=== PATIENT | female | born 1950 | race Caucasian/White ===

== ENCOUNTER → 2017-11-03 08:48 | Outpatient (CLI) | payer MEDICARE, SELFPAY ==
--- NOTE | 2017-11-03 09:00 | MM_ITS ---
MM Dig screening mamm BI w/CAD ORDERING PHYSICIAN : Jeffry Millan MD PATIENT AGE: 67 years GENDER: Female COMPARISON: January 2011 digital mammogram and July 1997 of film screen study INDICATION: ITS.REASON: SCREENING no hormones. No new complaints. Noncontributory family history TECHNIQUE: Standard CC and MLO images were obtained. R2 CAD reviewed. FINDINGS: Heterogeneous difficult to evaluate breast pattern with mild asymmetry of the breast. Difficult to review The dense patchy breast towards the deep right and left breast again encountered. There is been regression of overall previously more pronounced overall breast tissue density since previous 2010 examreflecting typical progressive aging changes with regression of breast tissue with aging in this now 67-year-old patient When considering the previous pattern I believe the overall asymmetric patchy pattern seen today is stable with no significant new findings. Bilateral follow-up one year be adequate Benign calcifications bilaterally. . IMPRESSION: Asymmetric patchy inhomogeneous breast pattern However no new areas of significant concern. Bilateral follow-up in one year BI-RADS Category: 2 Benign Finding(s) RECOMMENDED FOLLOW-UP: 1YR 1 YEAR FOLLOW-UP (A letter has been sent to the patient regarding results of the study.)
--- NOTE | 2017-11-03 09:30 | US_ITS ---
US breast RT complete, US breast LT complete INDICATION: Mastalgia, breast pain ORDERING PHYSICIAN: Jeffry Millan MD PATIENT AGE: 67 years COMPARISON: None TECHNIQUE: Standard bilateral breast ultrasound performed with axial FINDINGS: Right breast: No suspicious solid lesions evident. There is a 5 mm x 3 mm cyst in the retroareolar region. Small nodes are present in the axilla Left breast: Small 4 mm cyst in the retroareolar region. No suspicious nodules. Small nodes in the axilla. IMPRESSION: Small bilateral retroareolar cyst otherwise negative bilateral breast ultrasound Negative ultrasound does not exclude the possibility of malignancy. If there are palpable abnormalities in relation be managed on a clinical basis. BI-RADS Category: 2 Benign Finding(s) RECOMMENDED FOLLOW-UP: 1YR - 1 YEAR FOLLOW-UP (A letter has been sent to the patient regarding results of the study.)
--- NOTE | 2017-11-03 10:00 | XR_ITS ---
XR DEXA axial skeleton HISTORY: ORDERING PHYSICIAN: Jeffry Millan MD PATIENT AGE: 67 years COMPARISON: 08/07/2009 FINDINGS: The BMD measured at the AP Spine L1-L4 is 0.778 g/cm squared with a T score of -3.4 . This is considered Osteoporotic according to the World Health Organization criteria. Fracture risk is High. Treatment is advised. The lumbar spine density has decreased by nearly 4%. The mean hip density has a T score of -2.5 and has decreased 8% IMPRESSION: Osteoporosis with high fracture risk. Treatment recommended. Suggest follow-up exam October 2018
== END ==
PROVIDERS: Family Provider Family Medicine; PCP Family Medicine; Visit Provider Family Medicine
DX: Z12.31 Encounter for screening mammogram for malignant neoplasm of breast (principal); Z13.820 Encounter for screening for osteoporosis; Z78.0 Asymptomatic menopausal state; N64.4 Mastodynia
CPT/HCPCS: 76641; 77067; 77080

== ENCOUNTER → 2018-04-11 11:05 | Outpatient (CLI) | payer MEDICARE, SELFPAY ==
--- NOTE | 2018-04-11 11:09 | XR_ITS ---
XR chest 2V HISTORY: Chest pain, chronic chest pain, smoker ITS.REASON: chest pain ORDERING PHYSICIAN: Jose Ramirez MD PATIENT AGE: 67 years COMPARISON: 10/22/2017 FINDINGS: The cardiomediastinal silhouette and pulmonary vascularity are within normal limits. COPD. Biapical pleural thickening noted. Calcified granuloma is present in the left upper lobe. No lobar consolidation or collapse. No evidence of pneumothorax.. No acute bony abnormalities. IMPRESSION: COPD with chronic changes, no change with no acute finding
[2018-04-11 14:42] LABS: Basophils # 0.1 K/mm3 (0-0.2); Basophils % 0.8 % (0.1-2.0); Eosinophils # 0.1 K/mm3 (0.0-0.4); Eosinophils % 0.5 % (0.1-12.0); Hemoglobin 14.1 g/dL (12.2-16.2); Lymphocytes # 1.7 K/mm3 (0.7-4.5); Lymphocytes % 15.5 % (10-50); Mean Corpuscular HGB Conc 33.5 g/dL (31.8-35.4); Mean Corpuscular Hemoglobin 28.9 pg (27.0-31.2); Mean Corpuscular Volume 86.1 fl (81-99); Mean Platelet Volume 9.1 fl (7.4-10.4); Monocytes # 0.5 K/mm3 (0.1-1.0); Neutrophils # 8.5 K/mm3 (1.8-7.8); Neutrophils % 78.3 % (37.0-80.0); Platelet Count 258 K/mm3 (142-424); Red Blood Count 4.88 M/mm3 (4.20-5.40); Red Cell Distribution Width 14.1 % (11.5-17.5); White Blood Count 10.8 K/mm3 (4.8-10.8)
[2018-04-11 15:10] LABS: Alanine Aminotransferase 19 U/L (12-78); Albumin Level 3.8 gm/dL (3.4-5.0); Albumin/Globulin Ratio 1.2 (1.1-1.8); Alkaline Phosphatase 82 U/L (46-116); Anion Gap 16.5 mEq/L (5-15); Aspartate Amino Transferase 13 U/L (15-37); Bilirubin,Total 0.3 mg/dL (0.2-1.0); Blood Urea Nitrogen 11 mg/dL (7-18); Calcium 10.3 mg/dL (8.5-10.1); Carbon Dioxide 25 mmol/L (21.0-32.0); Chloride 103 mmol/L (98-107); Chol/HDL Ratio 3.4 (1-3.5); Cholesterol 211 mg/dL (140-200); Creatinine,Serum 0.86 mg/dL (0.55-1.02); Estimated Glomerular Filt Rate 66 ml/min (>60); Free T4 (Free Thyroxine) 1.21 ng/dl (0.76-1.46); GFR (African American) 80 ML/MIN (>60); Globulin 3.2 gm/dl (1.3-3.2); Glucose 102 mg/dL (74-106); HDL Cholesterol 62 mg/dL (29-89); LDL Cholesterol 120 mg/dL (0-130); Potassium 4.5 mmoL/L (3.5-5.1); Sodium 140 mmol/L (136-145); Thyroid Stimulating Hormone 1.02 uIU/ml (0.358-3.740); Triglycerides 144 mg/dL (30-200); VLDL Cholesterol 29 mg/dL (0-40)
== END ==
PROVIDERS: PCP Emergency Medicine; Visit Provider Emergency Medicine
DX: R07.89 Other chest pain (principal); E07.9 Disorder of thyroid, unspecified; R53.83 Other fatigue
CPT/HCPCS: 71046; 80053; 80061; 84439; 84443; 85025

== ENCOUNTER → 2018-10-26 12:42 | Outpatient (CLI) | payer MEDICARE, SELFPAY ==
[2018-11-01 09:27] LABS: QuantiFERON-TB Gold Plus Negative (Negative)
== END ==
PROVIDERS: Visit Provider Internal Medicine
DX: M06.9 Rheumatoid arthritis, unspecified (principal)
CPT/HCPCS: 36415; 86480

== ENCOUNTER → 2019-01-27 08:21 | Outpatient (CLI) | payer MEDICARE, SELFPAY ==
[2019-01-27 08:22] LABS: Adenovirus F 40/41, stool Not Detected (NotDetected); Astrovirus Not Detected (NotDetected); Campylobacter Not Detected (NotDetected); Clostridium Difficile A/B, PCR Not Detected (NotDetected); Cyclospora Cayetanesis Not Detected (NotDetected); Entamoeba histolytica Not Detected (NotDetected); Enteroaggregative E coli Not Detected (NotDetected); Enterotoxigenic E coli Not Detected (NotDetected); Giardia lamblia Not Detected (NotDetected); Norovirus Not Detected (NotDetected); Plesimonas Shigalloides, PCR Not Detected (NotDetected); Rotavirus A Not Detected (NotDetected); Salmonella, PCR Not Detected (NotDetected); Sapovirus Not Detected (NotDetected); Shiga-like toxin E coli Not Detected (NotDetected); Shigella Enterovasive E coli Not Detected (NotDetected); Vibrio Cholerae Not Detected (NotDetected); Vibrio, PCR Not Detected (NotDetected); Yersinia Entercolitica, PCR Not Detected (NotDetected)
[2019-01-27 09:43] LABS: Occult Blood,Stool Negative (Negative)
[2019-01-27 13:14] LABS: Alanine Aminotransferase 15 U/L (12-78); Albumin/Globulin Ratio 1.5 (1.1-1.8); Alkaline Phosphatase 69 U/L (46-116); Anion Gap 12.9 mEq/L (5-15); Aspartate Amino Transferase 13 U/L (15-37); Bilirubin,Total 0.4 mg/dL (0.2-1.0); Blood Urea Nitrogen 7 mg/dL (7-18); Carbon Dioxide 27 mmol/L (21.0-32.0); Chloride 105 mmol/L (98-107); Creatinine,Serum 0.78 mg/dL (0.55-1.02); Estimated Glomerular Filt Rate 74 ml/min (>60); GFR (African American) 89 ML/MIN (>60); Globulin 2.7 gm/dl (1.3-3.2); Glucose 100 mg/dL (74-106); Potassium 3.9 mmoL/L (3.5-5.1); Sodium 141 mmol/L (136-145); Total Protein,Serum 6.7 gm/dL (6.4-8.2)
[2019-01-27 13:55] LABS: Cryptosporidium Not Detected (NotDetected)
[2019-01-27 14:09] LABS: Enteropathogenic E coli Detected (NotDetected)
== END ==
PROVIDERS: Visit Provider Nurse Practitioner Family
DX: A04.0 Enteropathogenic Escherichia coli infection; R19.7 Diarrhea, unspecified
CPT/HCPCS: 36415; 80053; 82272; 87506; G0328

== ENCOUNTER → 2019-08-22 18:22 | Outpatient (CLI) | payer MEDICARE, SELFPAY ==
[2019-08-22 19:31] LABS: Basophils # 0.1 K/mm3 (0-0.2); Basophils % 1.3 % (0.1-2.0); Eosinophils # 0.1 K/mm3 (0.0-0.4); Eosinophils % 0.9 % (0.1-12.0); Hematocrit 39.4 % (37.0-47.0); Hemoglobin 13.8 g/dL (12.2-16.2); Lymphocytes # 2.2 K/mm3 (0.7-4.5); Lymphocytes % 34.7 % (10-50); Mean Corpuscular Hemoglobin 30.9 pg (27.0-31.2); Mean Corpuscular Volume 88.2 fl (81-99); Mean Platelet Volume 9.1 fl (7.4-10.4); Monocytes # 0.5 K/mm3 (0.1-1.0); Monocytes % 7.1 % (1.7-9.3); Neutrophils # 3.6 K/mm3 (1.8-7.8); Platelet Count 202 K/mm3 (142-424); Red Blood Count 4.47 M/mm3 (4.20-5.40); Red Cell Distribution Width 13.4 % (11.5-17.5); White Blood Count 6.4 K/mm3 (4.8-10.8)
[2019-08-22 20:34] LABS: Chloride 105 mmol/L (98-107); Sodium 137 mmol/L (136-145)
[2019-08-22 20:35] LABS: Potassium 3.9 mmoL/L (3.5-5.1)
[2019-08-22 20:37] LABS: Alanine Aminotransferase 11 U/L (12-78); Albumin Level 4.1 g/dl (3.5-5.0); Albumin/Globulin Ratio 1.7 (1.1-1.8); Alkaline Phosphatase 58 U/L (38-126); Anion Gap 9.9 mEq/L (5-15); Aspartate Amino Transferase 22 U/L (14-36); Bilirubin,Total 0.6 mg/dl (0.2-1.3); Blood Urea Nitrogen 11 mg/dl (7-17); Carbon Dioxide 26 mmol/L (22.0-30.0); Cholesterol 175 mg/dl (140-200); Estimated Glomerular Filt Rate 72 ml/min (>60); GFR (African American) 87 ML/MIN (>60); Globulin 2.4 g/dL (1.3-3.2); Total Protein,Serum 6.5 g/dl (6.3-8.2); Triglycerides 100 mg/dl (30-150); VLDL Cholesterol 20 mg/dL (0-40)
[2019-08-22 20:38] LABS: Calcium 9.1 mg/dl (8.4-10.2); Chol/HDL Ratio 2.5 (1-3.5); Glucose 92 mg/dl (74-100); HDL Cholesterol 69 mg/dl (40-60)
[2019-08-22 20:49] LABS: Direct LDL Cholesterol 106.33 mg/dL (100-129)
[2019-08-22 20:56] LABS: T4 (Thyroxine) 9.4 ug/dl (5.53-11.0)
[2019-08-22 21:38] LABS: Hemoglobin A1C 5.1 % (4.0-6.0)
[2019-08-22 22:04] LABS: Thyroid Stimulating Hormone 0.92 uIU/mL (0.465-4.68)
[2019-08-24 12:05] LABS: Vitamin D 25 Hydroxy 15.2 ng/mL (30.0-100.0)
== END ==
PROVIDERS: Visit Provider Nurse Practitioner Family
DX: R53.83 Other fatigue (principal); R07.89 Other chest pain; S49.90XA Unspecified injury of shoulder and upper arm, unspecified arm, initial encounter; E11.9 Type 2 diabetes mellitus without complications; E55.9 Vitamin D deficiency, unspecified
CPT/HCPCS: 80053; 80061; 82652; 83036; 84436; 84443; 85025

== ENCOUNTER 2019-08-29 17:01 | Emergency (ER) | payer MEDICARE, SELFPAY ==
[2019-08-29 17:04] VITALS: BP 152/66; PULSE 76; RESP 16; TEMP 37.5; O2SAT 98; BMI 19.6
--- NOTE | 2019-08-29 17:16 | ECG_ITS ---
APPROVED REPORT Exam: Resting ECG HR:82 bpm ECG Measurements Heart Rate 82 AXES NH 140 P 85 QRSd 90 QRS 74 QT 352 T 79 QTc 411 <Conclusion> Normal sinus rhythm Incomplete RBBB Otherwise a Normal ECG Electronically signed by : Sky Roberts, 08/31/2019 11:42:33
--- NOTE | 2019-08-29 17:17 | XR_ITS ---
PROCEDURE: XR CHEST 2V CLINICAL HISTORY: chest pain Chest pain, smoker COMPARISON: CXR2V XR chest 2V from 10/22/2017 CXR2V XR chest 2V from 04/11/2018 CT ANGIO CHEST from 08/29/2019 FINDINGS: The cardiomediastinal silhouette and pulmonary vascularity are within normal limits. COPD. Biapical fibronodular changes/scarring. Old granulomatous disease. No lobar consolidation or collapse. Chronic wedging of L1 IMPRESSION: COPD with chronic changes. No change with no acute finding Dictated by: Quan Gudino MD 08/30/2019 08:30 Electronically signed by Quan Gudino MD in [place] 08/30/2019 08:30
--- NOTE | 2019-08-29 17:56 | CT_ITS ---
PROCEDURE: CT ANGIO CHEST CLINCIAL INDICATION: chest pain, to back The chest pain radiating into the back COMPARISON: CXR2V XR chest 2V from 04/11/2018 TECHNIQUE: IV Contrast: 70ML OPTIRAY 350 Axial images obtained with sagittal and coronal reformats. All CT scans at the facility use one or more dose reduction, viz: automated exposure control, ma/kV adjustment per patient size (including targeted exams where dose is matched to indication, i.e. head), or iterative reconstruction technique. FINDINGS: HEART AND MEDIASTINAL STRUCTURES: Mildly prominent thyroid gland. Atheromatous changes involve the aorta. No evidence of aneurysm or dissection. Coronary artery calcifications are also present. Calcific plaque is present at the LAD and 1st diagonal with possible occlusion versus high-grade stenosis. A moderate amount of calcific plaque also noted at the circumflex with suspected severe stenosis or occlusion. The RCA is a small-vessel. No evidence of pulmonary embolus. No mediastinal or hilar mass or adenopathy. LUNGS AND PLEURAL SPACES: Centrilobular emphysema/COPD with biapical fibronodular changes/scarring and evidence of old granulomatous disease. BONY STRUCTURES: Chronic wedge compression changes of L1 UPPER ABDOMEN: Cholelithiasis. 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 ADDITIONAL FINDINGS: No other significant abnormalities. IMPRESSION: 1. Severe coronary artery disease with suspected high-grade stenosis or occlusion of the LAD, 1st diagonal and circumflex with a small RCA. 2. No evidence of aneurysm or dissection of the aorta 3. Centrilobular emphysema with biapical scarring 4. Cholelithiasis 5. 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 The emergency room was called with these findings. Report was given to Kacy on 08/30/2019 at 9:23 a.m. Dictated by: Quan Gudino MD 08/30/2019 09:25 Electronically signed by Quan Gudino MD in [place] 08/30/2019 09:25
--- NOTE | 2019-08-29 17:57 | HMH.EDCP ---
ED Disposition Clinical Impression: Chest pain, atypical, Gastric irritation Disposition: Home, Self-Care Condition on Discharge: Good Additional Instructions: You have been evaluated for chest pain, atypical. This could be due to gastric irritation from naproxen. Especially since your pain is when lying flat at night, try not to take NSAIDs before bed. You may take Carafate to help with symptoms. Follow-up with your primary care doctor. Return to the emergency department if you have any new or worsening symptoms, dark stools, vomiting, chest pain with exertion, shortness of breath, other concerns. Prescriptions: Sucralfate [Carafate 1gm/10mL Susp] 10 ml PO ACHS #14 oz Prescription Printed Referrals: Jose Ramirez MD [Primary Care Provider] - Time of Disposition: 19:44 - Critical Care Critical Care Time: No Attestation: On 08/29/19, the high probability of a clinically significant, sudden or life threatening deterioration of the following system(s) required my full and direct attention, intervention and personal management. The time I documented below is in addition to time spent performing reported procedures but includes the following listed in this critical care notation. Medical Decision Making - Dread Inquiry Pt receiving controlled substance: No Vital Signs: 08/29/19 17:04 08/29/19 18:07 08/29/19 18:54 Temperature 99.5 F Temperature Source Oral Pulse Rate [Left Radial] 76 67 64 Respiratory Rate 16 Blood Pressure [Right Arm] 152/66 H 120/52 L 129/59 L Blood Pressure Mean [Right Arm] 94 74 82 Blood Pressure Source [Right Arm] Automatic Cuff Automatic Cuff Blood Pressure Position [Right Arm] Sitting Sitting Sitting 02 Sat by Pulse Oximetry 98 98 98 Oxygen Delivery Method Room Air Room Air Room Air 08/29/19 20:00 Temperature Temperature Source Pulse Rate [Left Radial] 66 Respiratory Rate 16 Blood Pressure [Right Arm] 131/49 L Blood Pressure Mean [Right Arm] 76 Blood Pressure Source [Right Arm] Automatic Cuff Blood Pressure Position [Right Arm] Sitting 02 Sat by Pulse Oximetry 98 Oxygen Delivery Method Room Air - Lab Data Lab Results 08/29/19 17:45: WBC 8.5, RBC 4.17 L, Hgb 13.0, Hct 37.5, MCV 89.8, MCH 31.2, MCHC 34.8, RDW 13.8, Plt Count 213, MPV 8.0, Neut % (Auto) 65.8, Lymph % (Auto) 25.3, Marin % (Auto) 7.2, Eos % (Auto) 1.5, Baso % (Auto) 0.2, Neut # (Auto) 5.6, Lymph # (Auto) 2.2, Marin # (Auto) 0.6, Eos # (Auto) 0.1, Baso # (Auto) 0.0 08/29/19 17:45: Sodium 137, Potassium 3.9, Chloride 102, Carbon Dioxide 27, Anion Gap 11.9, BUN 14, Creatinine 0.70, Estimated Creat Clear 47, Estimated GFR 84, Est GFR ( Amer) 101, Glucose 102 H, Calcium 9.2, Troponin I < 0.01 Result diagrams: 08/29/19 17:45 08/29/19 17:45 Orders (Tests/Meds): ED MEDICATIONS Generic Name Dose Route Start Last Admin Trade Name Freq PRN Reason Stop Dose Admin Sucralfate 1 gm 08/29/19 21:00 08/29/19 20:33 Carafate 1gm/10ml Susp Udc PO 09/28/19 20:59 1 gm ACHS KAROLINE Administration Discontinued Medications Generic Name Dose Route Start Last Admin Trade Name Freq PRN Reason Stop Dose Admin Belladonna Alkaloids 60 ml 08/29/19 19:41 08/29/19 20:33 Gi Cocktail 60ml Udc PO 08/29/19 19:42 60 ml ONCE ONE Administration Ioversol 70 ml 08/29/19 18:38 08/29/19 18:39 Rad-Optiray 350 100ml Vial IV 08/29/19 18:39 70 ml ONCE ONE Administration Protocol Sodium Chloride 50 ml 08/29/19 18:38 08/29/19 18:40 Rad-Ns 50ml Vial IV 08/29/19 18:39 50 ml ONCE ONE Administration Sodium Chloride 10 ml 08/29/19 18:38 08/29/19 18:40 Rad-Saline Flush 10ml Syringe IV 08/29/19 18:39 10 ml ONCE ONE Administration ORDERS Category Date Time Status CTA Chest [CT angio chest] Stat Cat Scan 08/29/19 17:56 Taken Chest XR 2 view (NOT portable) [XR chest 2V] Stat Exams 08/29/19 17:17 Taken Troponin I Q3H Lab 08/29/19 23:30 Ordered - ECG Data
[2019-08-29 18:03] LABS: Basophils % 0.2 % (0.1-2.0); Eosinophils # 0.1 K/mm3 (0.0-0.4); Eosinophils % 1.5 % (0.1-12.0); Hematocrit 37.5 % (37.0-47.0); Lymphocytes # 2.2 K/mm3 (0.7-4.5); Lymphocytes % 25.3 % (10-50); Mean Corpuscular HGB Conc 34.8 g/dL (31.8-35.4); Mean Corpuscular Hemoglobin 31.2 pg (27.0-31.2); Mean Corpuscular Volume 89.8 fl (81-99); Monocytes # 0.6 K/mm3 (0.1-1.0); Monocytes % 7.2 % (1.7-9.3); Neutrophils # 5.6 K/mm3 (1.8-7.8); Neutrophils % 65.8 % (37.0-80.0); Platelet Count 213 K/mm3 (142-424); Red Blood Count 4.17 M/mm3 (4.20-5.40); Red Cell Distribution Width 13.8 % (11.5-17.5); White Blood Count 8.5 K/mm3 (4.8-10.8)
[2019-08-29 18:07] VITALS: BP 120/52; PULSE 67; O2SAT 98
[2019-08-29 18:08] LABS: Anion Gap 11.9 mEq/L (5-15); Blood Urea Nitrogen 14 mg/dl (7-17); Calcium 9.2 mg/dl (8.4-10.2); Carbon Dioxide 27 mmol/L (22.0-30.0); Chloride 102 mmol/L (98-107); Creatinine Clearance Estimated 47 mL/min (50-200); Estimated Glomerular Filt Rate 84 ml/min (>60); GFR (African American) 101 ML/MIN (>60); Glucose 102 mg/dl (74-100); Potassium 3.9 mmoL/L (3.5-5.1); Sodium 137 mmol/L (136-145)
[2019-08-29 18:23] LABS: Troponin I < 0.01 ng/ml (0.00-0.034)
[2019-08-29 18:54] VITALS: BP 129/59; PULSE 64; O2SAT 98
[2019-08-29 20:00] VITALS: BP 131/49; PULSE 66; RESP 16; O2SAT 98
[2019-08-29 20:27] VITALS: BP 127/47; PULSE 61; RESP 16; TEMP 37.2; O2SAT 98
--- NOTE | 2019-08-30 09:28 | PC.NURSE ---
Received a call from jackelin hdez regarding pt CT findings, notified pt PCP dr early offices.
== END 2019-08-29 20:31 | disposition home or self-care (01) ==
PROVIDERS: Emergency Provider Emergency Medicine; PCP Emergency Medicine
DX: R07.89 Other chest pain (principal); J44.9 Chronic obstructive pulmonary disease, unspecified; M81.0 Age-related osteoporosis without current pathological fracture; M80.88XA Other osteoporosis with current pathological fracture, vertebra(e), initial encounter for fracture; F17.210 Nicotine dependence, cigarettes, uncomplicated; Z79.899 Other long term (current) drug therapy
CPT/HCPCS: 71046; 71275; 80048; 84484; 85025; 93005; 99284; Q9967

== ENCOUNTER 2019-09-10 08:05 | Day surgery (SDC) | payer MEDICARE, SELFPAY ==
[2019-09-10] VITALS (39 sets, daily range): BP systolic 99–141; BP diastolic 38–63; PULSE 50–65; RESP 15–18; TEMP 36.4–36.8; O2SAT 94–100; BMI 19.3
--- NOTE | 2019-09-10 08:08 | CA_ITS ---
APPROVED REPORT EXAM: Comprehensive 2D, Doppler, and color-flow Echocardiogram Raise Driller: Melania Urbina RDCS Ht: 5 ft 5 in Wt: 116lbs BSA: 1.57 BP: 142/80 mmHg Indications: ABN CTA, CP,CAD 2D Dimensions LVOT 1.74 cm (M/F) 1.5-2.5 M-Mode Dimensions RVDd 2.75 cm (0.9-2.6) LVDd 4.34 cm (3.5-5.7) LVDs 2.87 cm (3.5-5.7) IVSd 0.75 cm (0.6-1.1) PWd 0.72 cm (0.6-1.1) EF (Teich) 63.00% FS 33.90% EDV (Teich) 84.90 mL ESV (Teich) 31.40 mL LV Diastology E/A Ratio 1.35 Aortic Valve LVOT Max 96.00 (70-110 cm/s) LVOT VTI 22.26 cm Mitral Valve MV A Velocity 54.00 (40-130 cm/s) Left Ventricle Left atrium is mildly enlarged, left ventricle is normal size, mild concentric left ventricular hypertrophy, visually estimated ejection fraction 55% with no regional wall motion abnormality, grade 1 diastolic dysfunction seen without tissue Doppler evidence of raise left atrial pressure. Right Ventricle Right atrium and right ventricle are normal size and contractility. Aortic Valve Aortic valve is thickened and calcified leaflet chordae display good mobility, there is no aortic stenosis, there is mild aortic insufficiency. Mitral Valve Mitral valve leaflets are grossly normal, there is mild mitral regurgitation. Tricuspid Valve Tricuspid valve is grossly normal, there is mild tricuspid regurgitation, tricuspid regurgitation jet velocity is inadequate for calculation of the right ventricular systolic pressure. Pulmonic Valve Pulmonic valve is poorly visualized. Great Vessels Aortic root is normal size. Pericardium No significant pericardial effusion noted. Conclusion 1. Mildly enlarged left atrium, normal left ventricular size, mild concentric left ventricular hypertrophy, visually estimated ejection fraction 55% with no regional wall motion abnormality, grade 1 diastolic dysfunction seen without tissue Doppler evidence of raise left atrial pressure. 2. Thickened and calcified aortic valve without aortic stenosis, there is mild aortic insufficiency. 3. Mild mitral and tricuspid regurgitation. 4. No significant pericardial effusion noted. Electronically signed by : Pepe Chun, 09/10/2019 19:17:41
--- NOTE | 2019-09-10 09:00 | IR_ITS ---
APPROVED REPORT Patient Location: Outpatient Disaster Recovery Manager: MARINA Wright RT (R) PROCEDURES Left heart catheterization Left ventriculogram Selective coronary angiogram Intravascular ultrasound to the LAD Catheter placement in the abdominal aorta Attempted angiography of the celiac artery INDICATION Proximal LAD stenosis, Celiac artery stenosis, Informed consent was obtained prior to the procedure. COMPLICATIONS NONE Estimated Blood Loss: LESS THAN 10 ML TECHNIQUE One percent lidocaine used to anesthetize the right anterior aspect of the wrist. The right radial artery was accessed via the Seldinger technique. A 6 Togolese sheath was placed in the right radial artery. 2.5 mg of verapamil, 800 mcg of nitroglycerin, 1mg Lidocaine and 5000 U Heparin were given through the arterial sheath. The trap catheter was also used to perform left heart catheterization, left ventriculogram and selective coronary angiogram. The trap catheter was attempted to cannulate the celiac artery however I was unable to specifically and selectively cannulate the celiac artery therefore incomplete angiography was performed. At this point it was decided to proceed with LAD intervention therefore a 6 Togolese JL 3.5 guide catheter was placed in the radial sheath however this would not pass through the radial artery. Additional nitroglycerin was administered intra-arterially and angiography demonstrated the vessel was simply too small and there was a small amount of extravasation at the arterial site. Because of this the procedure was abandoned and 1% lidocaine was used anesthetize the right groin. The right femoral artery was accessed via the Salinger technique and a 6 Togolese sheath was placed in the right femoral artery. Therapeutic heparin was administered. A JL 3.5 guide catheter was placed in the LAD. A BMW wire was used to traverse the stenosis. With repeat angiography did not feel the lesion met hemodynamic significance. Given a BMW wire was already down the LAD system it was decided to perform intravascular ultrasound. An intravascular ultrasound probe was advanced however it could not pass through the proximal LAD in an area which appeared to be normal by angiography. A limited ultrasound of the LAD and left main was performed and it was immediately identifiable a large eccentric calcified plaque was identified in the very proximal LAD. After being unable to pass the intravascular ultrasound probe into the LAD it was decided to abandon the procedure. The apparatus was removed and the patient was transferred to the postop holding in stable condition ANGIOGRAPHIC RESULTS The left main artery Normal The left anterior descending artery Is a small system and appears to have mild 10% stenosis in the proximal segment however this is the portion where the NANNETTE catheter would not advance. Distal to the 10% stenosis by angiography there is an additional concentric 40% stenosis. The mid LAD then has a fairly long myocardial bridge which compresses to 70% with systole over an area approximately 15 mm in diameter. The LAD is a long vessel and wraps the apex. The circumflex artery Is a large dominant vessel and has a mid vessel 30% smooth stenosis. The right coronary artery Is a nondominant small caliber vessel which has an ostial 20% stenosis. The PARSON ventriculogram reveals Normal 65% The left ventricular end-diastolic pressure Elevated at 30 mmHg The abdominal aorta is atheromatous mildly dilated. There was poor visualization of the celiac artery therefore no severity of stenosis can be described IMPRESSION Coronary disease as described above with at least moderate stenosis by angiography and possibly severe st
[2019-09-10 09:16] LABS: Basophils # 0.1 K/mm3 (0-0.2); Basophils % 0.7 % (0.1-2.0); Eosinophils # 0.1 K/mm3 (0.0-0.4); Eosinophils % 1.2 % (0.1-12.0); Hematocrit 40.7 % (37.0-47.0); Hemoglobin 14.1 g/dL (12.2-16.2); Lymphocytes # 2.5 K/mm3 (0.7-4.5); Lymphocytes % 37.1 % (10-50); Mean Corpuscular HGB Conc 34.6 g/dL (31.8-35.4); Mean Corpuscular Hemoglobin 30.5 pg (27.0-31.2); Mean Platelet Volume 8.2 fl (7.4-10.4); Monocytes # 0.4 K/mm3 (0.1-1.0); Monocytes % 5.2 % (1.7-9.3); Neutrophils # 3.8 K/mm3 (1.8-7.8); Neutrophils % 55.9 % (37.0-80.0); Platelet Count 183 K/mm3 (142-424); Red Blood Count 4.62 M/mm3 (4.20-5.40); Red Cell Distribution Width 13.8 % (11.5-17.5); White Blood Count 6.8 K/mm3 (4.8-10.8)
[2019-09-10 09:20] LABS: Chloride 106 mmol/L (98-107); Potassium 4.1 mmoL/L (3.5-5.1); Sodium 140 mmol/L (136-145)
[2019-09-10 09:23] LABS: Anion Gap 10.1 mEq/L (5-15); Blood Urea Nitrogen 7 mg/dl (7-17); Calcium 9.1 mg/dl (8.4-10.2); Carbon Dioxide 28 mmol/L (22.0-30.0); Creatinine Clearance Estimated 45 mL/min (50-200); Estimated Glomerular Filt Rate 83 ml/min (>60); GFR (African American) 101 ML/MIN (>60); Glucose 95 mg/dl (74-100)
--- NOTE | 2019-09-10 14:09 | HMH.PHAVTE ---
[facility] Pharmacy VTE Monitoring - Patient Demographics Admission date: 09/10/19 Report Date: 09/10/19 Time: 14:09 Allergies/Adverse Reactions: Patient Allergies No Known Allergies Allergy (Unverified 09/10/19 08:48) Height: 1.65 m Weight: 52.617 kg - VTE Risk Labs: VTE Related Lab Results Hgb 14.1 g/dL (12.2-16.2) 09/10/19 09:00 Hct 40.7 % (37.0-47.0) 09/10/19 09:00 Plt Count 183 K/mm3 (142-424) 09/10/19 09:00 BUN 7 mg/dl (7-17) 09/10/19 09:00 Creatinine 0.70 mg/dl (0.52-1.04) 09/10/19 09:00 Estimated Creat Clear 45 mL/min (50-200) 09/10/19 09:00 - Prophylaxis VTE Prophylaxis Ordered?: Yes Types of VTE Prophylaxis: TEDS Knee High Location of Applied Device: Bilateral Lower Extremeties
[2019-09-10 14:57] LABS: CATHL Activated Clotting Time > 400 SEC (74-125)
[2019-09-10 14:59] LABS: CATHL Activated Clotting Time 233 SEC (74-125)
[2019-09-10 15:03] LABS: CATHL Activated Clotting Time 167 SEC (74-125)
--- NOTE | 2019-09-10 15:57 | PC.NURSE ---
PT AO*4, PT VSS, RESTING COMFORTABLY WITH FAMILY AT BEDSIDE, CATH ACCESS TO RUE RADIAL SITE, AND RLE FEMORAL SITE, NO S/S OF BLEEDING NOTED, CAP REFILL WNL IN RUE AND RLE, PEDAL PULSES PALPATED BILATERALLY +2, PT DOES NOT COMPLAIN OF N/V, HEADACHE, OR DIZZINESS, AIR RELEASED FROM RADIAL CLOSURE DEVICE PER HOSPITAL POLICY, DRESSING CLEAN DRY AND INTACT NO S/S OF BLEEDING, PATIENT TOLERATED WELL, WILL CONTINUE TO MONITOR.
== END 2019-09-10 18:35 | disposition home or self-care (01) ==
LOC: CATHLAB 08:06 → 2ND 14:26
PROVIDERS: PCP Emergency Medicine; Visit Provider Internal Medicine
DX: G25.81 Restless legs syndrome (principal); I25.110 Atherosclerotic heart disease of native coronary artery with unstable angina pectoris; I77.1 Stricture of artery; I77.4 Celiac artery compression syndrome; R93.89 Abnormal findings on diagnostic imaging of other specified body structures; Z72.0 Tobacco use; I10 Essential (primary) hypertension; J44.9 Chronic obstructive pulmonary disease, unspecified; Z79.899 Other long term (current) drug therapy
CPT/HCPCS: 80048; 85025; 85347; 92978; 93306; 93458; 99152; 99153; C1725; C1769; C1894; J1644; J2720; Q9967

== ENCOUNTER → 2019-10-02 10:29 | Outpatient (CLI) | payer MEDICARE, SELFPAY ==
--- NOTE | 2019-10-02 | CA_ITS ---
APPROVED REPORT Exam: Pharmacologic Technologist: Caterina Zapata Ht: 5 ft 5 in Wt: 116 lbs BSA: 1.57 m2 HR: 50 bpm BP: 136/45 mmHg Indications: CAD, Angina, Right radial arm pain Medical History Medications: Vitamin D3,,,,, Atorvastatin,,,,, Pramipexole,,,,, Prednisone,,,,, BisOPROLOL,,,,, FluTICASONE,,,,, Hydroxychloroquine,,,,, Mometasone Furonate,,,,, Alendronate,,,,, Alendronate,,,,, Tofacitinib,,,,, Stress Test Details Test: LEXISCAN HR Resting HR: 57 bpm Max Heart Rate (APMHR): 153 bpm Max HR Achieved: 88 bpm Target HR (85% APMHR): 130 bpm % of APMHR: 57 Recovery HR: 70 bpm BP Resting BP: 136.0/45.0 mmHg Max BP: 149.0/53.0 mmHg Recovery BP: 124.0/54.0 mmHg ECG Clinical Exercise duration: 04:00 min Highest Stage Achieved: Exercise capacity: 1.0 METs Stress ECG Conclusion Resting EKG: Sinus bradycardia, otherwise normal Symptoms: Shortness of air, malaise and chest fullness Arrhythmias/Ectopy: Rare PVC ST-T Changes: No significant changes. Conclusion: Unremarkable Lexiscan stress. Myoview images reported separately. Test Summary REST . . . . . . . Resting REST 04:04 . . 57 . 136/ 45 . . Stage 1 . . . . . . . Myoview Injected Stage 1 01:00 . . 84 . . . . Stage 2 01:00 . . 86 . . . . Stage 3 01:00 . . 87 . 149/ 53 . . Stage 4 01:00 . . 81 . 149/ 47 . Stop exercise at 04:00 RECOVERY 01:00 . . 80 . . . . RECOVERY 02:00 . . 83 . 134/ 60 . . RECOVERY 03:00 . . 75 . 124/ 54 . . RECOVERY 03:26 . . 72 . 124/ 54 . . Electronically signed by : Pepe Chun, 10/02/2019 20:10:52
--- NOTE | 2019-10-02 10:30 | NM_ITS ---
APPROVED REPORT Exam: Nuclear Stress Test Indication: SOB, Palpitations, Syncope, Fatigue, High cholesterol, Tobacco use, CAD, Family history Patient Location: Outpatient Stress Tech: Caterina Zapata [place] Tech:Estee Castillo, ARRT, RT (R)(N) Ht: 5 ft 5 in Wt: 116 lbs Bra Size: 34C HR: 50 bpm BP: 136/45 mmHg BSA: 1.57 m2 BMI: 19.3 History: SOB, Palpitations, Syncope, Fatigue, High cholesterol, Tobacco use, CAD, Family history Procedure: Patient received a 0.4 mg of intravenous Lexiscan, resting heart rate 50 bpm, resting blood pressure 136/45 mmHg, with Lexiscan maximum heart rate achived was 85 bpm which is Less than 85 % of the maximum predicted heart rate and blood pressure was 149/53 mmHg. Electrocardiogram Resting electrocardiogram showed sinus rhythm, with Lexiscan there is less than 1.[address] segment depression noted from the baseline EKG. The EKG portion of the Lexiscan Myoview is nondiagnostic. Cardiac Stress and Resting SPECT Images: Cardiac Stress and Resting SPECT images were obtained using technetium 99m Myoview 32.9 mCi stress and 10.82 mCi at rest. Gated SPECT for analysis of segmental wall motion and calculation of the ejection fraction also done. Cardiac stress and resting SPECT images show decreases activity in the anterior, apex and anteroseptal wall which improves on the resting images suggestive of reversible ischemia, there is transient ischemic dilatation of the left ventricle also seen. Computer derived ejection fraction is over 65% with no regional wall motion abnormality, right ventricle is normal size and contractility. Conclusion: 1. The EKG portion of the Lexiscan Myoview is nondiagnostic. 2. Scintigraphic evidence of reversible ischemia involving the anterior, anterior apical and anteroseptal wall, there is transient ischemic dilatation of the left ventricle seen, computer derived ejection fraction is over 65% with no regional wall motion abnormality, right ventricle is normal size and contractility. 3. Abnormal Lexiscan Myoview study. Electronically signed by : Pepe Chun, 10/02/2019 20:13:24
--- NOTE | 2019-10-02 10:48 | US_ITS ---
PROCEDURE: US EXTREMITY RT LIMITED CLINICAL INDICATION: r radial u/s Pain proximal forearm. Recent heart catheterization through the wrist COMPARISON: No exams were available for comparison FINDINGS: No cyst or mass evident in the area pain IMPRESSION: Unremarkable limited ultrasound of the proximal forearm Dictated by: Quan Gudino MD 10/02/2019 16:59 Electronically signed by Quan Gudino MD in [place] 10/02/2019 16:59
--- NOTE | 2019-10-02 12:55 | HMH.ITSHM ---
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 []PLAQUINIL XELSAM MIRAPEX FOSAMAX BISOPROLOL ATORVASTATIN PREDNISONE
== END ==
PROVIDERS: PCP Emergency Medicine; Visit Provider Nurse Practitioner Family
DX: I20.9 Angina pectoris, unspecified; E78.5 Hyperlipidemia, unspecified; G25.81 Restless legs syndrome; I10 Essential (primary) hypertension; I77.4 Celiac artery compression syndrome; R06.00 Dyspnea, unspecified; R93.89 Abnormal findings on diagnostic imaging of other specified body structures; Z72.0 Tobacco use; Z82.49 Family history of ischemic heart disease and other diseases of the circulatory system; K55.9 Vascular disorder of intestine, unspecified; R10.9 Unspecified abdominal pain; R68.81 Early satiety
CPT/HCPCS: 76882; 78452; 93017; A9502; J2785

== ENCOUNTER 2019-10-05 09:29 | Day surgery (SDC) | payer MEDICARE, SELFPAY ==
[2019-10-05] VITALS (11 sets, daily range): BP systolic 111–130; BP diastolic 52–67; PULSE 54–80; RESP 18–20; TEMP 36.6; O2SAT 95–98; BMI 18.7
--- NOTE | 2019-10-05 10:00 | IR_ITS ---
APPROVED REPORT Patient Location: Outpatient PROCEDURES Pigtail catheter placed in the abdominal aorta Abdominal aortography Selective engagement of the celiac artery with selective celiac artery angiography Selective engagement of the superior mesenteric artery with superior mesenteric artery angiography Intravascular ultrasound to the celiac artery Intravascular ultrasound of the superior mesenteric artery INDICATION Celiac artery stenosis, Superior mesenteric artery stenosis, Clinically suspected mesenteric ischemia Informed consent was obtained prior to the procedure. COMPLICATIONS NONE Estimated Blood Loss: LESS THAN 10 ML TECHNIQUE 1% lidocaine used anesthetize the right groin the right femoral artery was accessed via the Salinger technique and a 5 Nepalese sheath was placed in the right femoral artery. The pigtail catheter was advanced into the suprarenal abdominal aorta and abdominal aortography was performed. Following this therapeutic heparin was administered and the 5 Nepalese sheath was exchanged for a 6 Nepalese sheath. A 6 Nepalese AGUILAR guide catheter was used to intubate the celiac artery and celiac artery angiography was performed. This procedure was also repeated with selective engagement of the superior mesenteric artery with superior mesenteric artery selective angiography. Following this a Choice PT extra-support wire was placed distal to the superior mesenteric artery and intravascular ultrasound was performed. The wire was pulled back and placed into the celiac artery where celiac artery intravascular ultrasound was then performed. At the end of the procedure the apparatus was removed the groin was reprepped gloves were changed sheath was removed good hemostasis was achieved using Perclose device patient was transferred to the postop holding area in stable condition ANGIOGRAPHIC RESULTS The superior mesenteric artery has a calcified angiographically indeterminate stenosis with mild stenosis by intravascular ultrasound less than 20% The celiac artery has a calcified angiographically indeterminate stenosis with mild stenosis by intravascular ultrasound less than 20% IMPRESSION [id number] superior mesenteric artery stenosis [id number] celiac artery stenosis PLAN 1. Treat with proton pump inhibitors 2. Empiric treatment for reflux disease 3. Furl to GI Electronically signed by : Nico Moncada, 10/05/2019 13:33:25
[2019-10-05 10:03] LABS: Basophils # 0.1 K/mm3 (0-0.2); Basophils % 0.6 % (0.1-2.0); Eosinophils # 0.2 K/mm3 (0.0-0.4); Eosinophils % 2.3 % (0.1-12.0); Hematocrit 40.1 % (37.0-47.0); Hemoglobin 14.2 g/dL (12.2-16.2); Lymphocytes % 26.4 % (10-50); Mean Corpuscular HGB Conc 35.3 g/dL (31.8-35.4); Mean Corpuscular Hemoglobin 30.9 pg (27.0-31.2); Mean Corpuscular Volume 87.6 fl (81-99); Mean Platelet Volume 8.5 fl (7.4-10.4); Monocytes # 0.5 K/mm3 (0.1-1.0); Monocytes % 6.8 % (1.7-9.3); Neutrophils # 4.8 K/mm3 (1.8-7.8); Neutrophils % 63.8 % (37.0-80.0); Platelet Count 173 K/mm3 (142-424); Red Blood Count 4.58 M/mm3 (4.20-5.40); Red Cell Distribution Width 13.9 % (11.5-17.5); White Blood Count 7.5 K/mm3 (4.8-10.8)
[2019-10-05 10:12] LABS: Anion Gap 14.2 mEq/L (5-15); Blood Urea Nitrogen 10 mg/dl (7-17); Calcium 9.8 mg/dl (8.4-10.2); Carbon Dioxide 27 mmol/L (22.0-30.0); Chloride 103 mmol/L (98-107); Creatinine Clearance Estimated 45 mL/min (50-200); Estimated Glomerular Filt Rate 83 ml/min (>60); GFR (African American) 101 ML/MIN (>60); Glucose 104 mg/dl (74-100); Potassium 4.2 mmoL/L (3.5-5.1); Sodium 140 mmol/L (136-145)
== END 2019-10-05 15:54 | disposition home or self-care (01) ==
LOC: CATHLAB 09:30
PROVIDERS: PCP Emergency Medicine; Visit Provider Internal Medicine
DX: I77.4 Celiac artery compression syndrome (principal); E78.5 Hyperlipidemia, unspecified; G25.81 Restless legs syndrome; I25.110 Atherosclerotic heart disease of native coronary artery with unstable angina pectoris; K55.1 Chronic vascular disorders of intestine; I10 Essential (primary) hypertension; R06.00 Dyspnea, unspecified; R93.89 Abnormal findings on diagnostic imaging of other specified body structures; Z72.0 Tobacco use; Z82.49 Family history of ischemic heart disease and other diseases of the circulatory system
CPT/HCPCS: 36245; 36252; 36253; 75726; 80048; 85025; 99152; 99153; C1725; C1760; C1769; C1894; J1644; Q9966

== ENCOUNTER 2020-05-12 16:46 | Emergency (ER) | payer MEDICARE, SELFPAY ==
[2020-05-12 17:00] VITALS: BP 120/63; PULSE 87; RESP 14; TEMP 36.8; O2SAT 97; BMI 18.1
[2020-05-12 17:26] LABS: Color,Urine Dark Yellow (Yellow)
[2020-05-12 17:27] LABS: Apearance,Urine Cloudy (Clear); Bilirubin,Urine Negative (Negative); Blood, Urine 3+ (Negative); Glucose,Urine (UA) Negative (Negative); Ketones,Urine Negative (Negative); PH,Urine 5.5 (5.0-8.5); Protein,Urine 1+ (Negative); Specific Gravity, Urine 1.025 (1.005-1.030)
[2020-05-12 17:28] LABS: UTC Leukocyte Esterase,Urine 2+ (Negative); UTC Nitrate,Urine Positive (Negative); Urobilinogen,Urine 0.2 EU/dl (0.2)
--- NOTE | 2020-05-12 17:30 | HMH.EDUTC ---
[facility] [place] Disposition Clinical Impression: UTI (urinary tract infection) Qualifiers: Urinary tract infection type: site unspecified Hematuria presence: without hematuria Qualified Code(s): N39.0 - Urinary tract infection, site not specified Disposition: Home, Self-Care Condition on Discharge: Good Instructions: Urinary Tract Infection, DI for Urinary Tract Infection (UTI), Cefdinir Additional Instructions: *Increase fluids. Water not Soda or Tea *Start antibiotic immediately and be sure to take as ordered for the FULL length of time although you should start to see improvement over the next 48 hours *Pyridium as needed Remember this medication will turn your urine Cascade. This is normal but it will stain what ever it gets on *You should not use Pyridium for more than 48 hours. If so , follow up with your primary physician to review urine culture and ensure that antibiotic is adequate for infection *Be SURE to follow up anytime for new or worsening symptoms with your family doctor. AND in 48 hours for urine culture results with your family doctor, if you do not have a doctor then you may call back to the [facility] for urine culture results and further treatment. We do recommend that you choose and establish care with a Primary Care Physician. AND follow up with them in 10-14 days to repeat UA to ensure infection is resolved and blood no longer present *Be sure to let your PCP know that we sent urine cultures from the [facility] so they can follow up to ensure that you area the on the correct antibiotic Call your doctor office and make appointment for 48 hours (2 days from today) to follow up and get the results of your urine culture and further treatment Straight to ER if any life threatening symptoms Make sure to follow up that you are on the right medication for this UTI Return if needed Prescriptions: Cefdinir [Omnicef 300mg Capsule] 300 mg PO BID #20 cap Transmission Status: Received by Cognitive Code # Ondansetron [Zofran 4mg ODT] 4 mg PO TIDP PRN #6 tab PRN Reason: Nausea Transmission Status: Received by Cognitive Code # Referrals: Jose Ramirez MD [Primary Care Provider] - As needed Time of Disposition: 18:45 Medical Decision Making - Dread Inquiry Pt receiving controlled substance: No Dread was queried for this patient: No Vital Signs: 05/12/20 17:00 05/12/20 18:50 Temperature 98.3 F 98.3 F Temperature Source Oral Pulse Rate 87 Pulse Rate [Right Brachial] 87 Respiratory Rate 14 14 Blood Pressure 120/63 Blood Pressure [Right Arm] 120/63 Blood Pressure Mean [Right Arm] 82 Blood Pressure Source [Right Arm] Automatic Cuff Blood Pressure Position [Right Arm] Sitting 02 Sat by Pulse Oximetry 97 Oxygen Delivery Method Room Air - Lab Data Lab results reviewed: Yes: I reviewed the patient's lab results. Lab Results 05/12/20 17:23: Urine Color Dark yellow, Urine Appearance Cloudy, Urine pH 5.5, Ur Specific [place] 1.025, Urine Protein 1+, Urine Glucose (UA) Negative, Urine Ketones Negative, Urine Blood 3+, Urine Nitrate Positive A, Urine Bilirubin Negative, Urine Urobilinogen 0.2, Ur Leukocyte Esterase 2+ A Orders (Tests/Meds): ED MEDICATIONS Discontinued Medications Generic Name Dose Route Start Last Admin Trade Name Freq PRN Reason Stop Dose Admin Ceftriaxone Sodium 1 gm 05/12/20 17:43 05/12/20 18:00 Ceftriaxone 1gm Vial IM 05/12/20 17:44 1 gm ONCE ONE Administration Protocol Lidocaine HCl 0 ml 05/12/20 17:43 05/12/20 18:00 Lidocaine 1% 5ml Pf Vial IM 05/12/20 17:44 2.1 ml ONCE ONE Administration Ondansetron HCl 4 mg 05/12/20 17:17 05/12/20 17:31 Ondansetron 4mg Odt SL 05/12/20 17:18 4 mg ONCE ONE Administration ORDERS Category Date Time Status Urine Culture Routine Micro 05/12/20 17:00 Received Medical Decision Narrative: Medications was discussed with pharmacy and due to medications patient currently on and risk of
[2020-05-12 18:50] VITALS: BP 120/63; PULSE 87; RESP 14; TEMP 36.8; O2SAT 97
== END 2020-05-12 18:58 | disposition home or self-care (01) ==
PROVIDERS: Emergency Provider Nurse Practitioner; PCP Emergency Medicine
DX: N30.00 Acute cystitis without hematuria (principal); I25.10 Atherosclerotic heart disease of native coronary artery without angina pectoris; J44.9 Chronic obstructive pulmonary disease, unspecified; I48.0 Paroxysmal atrial fibrillation; E11.9 Type 2 diabetes mellitus without complications; M81.0 Age-related osteoporosis without current pathological fracture; Z87.891 Personal history of nicotine dependence; Z79.899 Other long term (current) drug therapy
CPT/HCPCS: G0463; 81003; 87086; 87088; 87186; 96372; 99202

== ENCOUNTER 2020-06-01 11:48 | Observation (INO) | payer MEDICARE, SELFPAY ==
[2020-06-01] VITALS (11 sets, daily range): BP systolic 90–128; BP diastolic 40–61; PULSE 72–114; RESP 18–19; TEMP 36.9–37.9; O2SAT 94–100; BMI 18.4; BMI 17.6; BMI 18.6
[2020-06-01 12:15] LABS: Microscopic, Urine URINE MICROSCOPIC (MICROSCOPIC)
[2020-06-01 12:16] LABS: Appearance,Urine CLOUDY (Clear); Blood, Urine 3+ (Negative); Color,Urine DK YELLOW (Yellow); Glucose,Urine (UA) Negative (Negative); Ketones,Urine TRACE (Negative); Leukocyte Esterase,Urine 2+ (Negative); Nitrate,Urine POSITIVE (Negative); Protein,Urine 3+ (Negative); Specific Gravity, Urine 1.025 (1.005-1.030)
[2020-06-01 12:19] LABS: Bilirubin,Urine Negative (Negative)
[2020-06-01 12:30] LABS: WBC,Urine TNTC #/hpf (0-3)
--- NOTE | 2020-06-01 12:30 | HMH.EDGENADL ---
ED Disposition Clinical Impression: Pyelonephritis Hypotension Qualifiers: Hypotension type: unspecified hypotension type Qualified Code(s): I95.9 - Hypotension, unspecified Disposition: Admitted as Observation Condition on Discharge: Fair Referrals: Jose Ramirez MD [Primary Care Provider] - - Critical Care Critical Care Time: No Attestation: On 06/01/20, the high probability of a clinically significant, sudden or life threatening deterioration of the following system(s) required my full and direct attention, intervention and personal management. The time I documented below is in addition to time spent performing reported procedures but includes the following listed in this critical care notation. Medical Decision Making - Medical Records Medical records reviewed: Yes: I reviewed the patient's medical records. MR Comment: Reviewed previous records for prior blood pressures which typically run in the 120s up to 140s. - Dread Inquiry Pt receiving controlled substance: No Vital Signs: 06/01/20 11:49 06/01/20 12:21 06/01/20 12:40 Temperature 100.2 F H Temperature Source Oral Pulse Rate [Right Radial] 114 H 101 H 110 H Respiratory Rate 18 18 18 Blood Pressure [Right Arm] 128/61 128/51 L 90/45 L Blood Pressure Mean [Right Arm] 83 76 60 Blood Pressure Source [Right Arm] Automatic Cuff Blood Pressure Position [Right Arm] Sitting 02 Sat by Pulse Oximetry 95 95 99 Oxygen Delivery Method Room Air 06/01/20 14:02 Temperature Temperature Source Pulse Rate [Right Radial] 78 Respiratory Rate 18 Blood Pressure [Right Arm] 94/42 L Blood Pressure Mean [Right Arm] 59 Blood Pressure Source [Right Arm] Blood Pressure Position [Right Arm] 02 Sat by Pulse Oximetry 94 L Oxygen Delivery Method - Lab Data Lab Results 06/01/20 11:55: Urine Color Dk yellow, Urine Appearance Cloudy, Urine pH 6.0, Ur Specific [place] 1.025, Urine Protein 3+, Urine Glucose (UA) Negative, Urine Ketones Trace, Urine Blood 3+, Urine Nitrate Positive, Urine Bilirubin Negative, Urine Urobilinogen 1.0, Ur Leukocyte Esterase 2+ A, Urine RBC 3-5, Urine WBC Tntc, Ur Squamous Epith Cells 3-5, Urine Bacteria 2+ 06/01/20 12:50: WBC 11.5 H, RBC 4.43, Hgb 11.8 L, Hct 36.0 L, MCV 81.3, MCH 26.7 L, MCHC 32.9, RDW 19.5 H, Plt Count 148, MPV 9.1, Neut % (Auto) 80.8 H, Lymph % (Auto) 11.6, Dewey % (Auto) 7.2, Eos % (Auto) 0.0 L, Baso % (Auto) 0.4, Neut # (Auto) 9.3 H, Lymph # (Auto) 1.3, Dewey # (Auto) 0.8, Eos # (Auto) 0.0, Baso # (Auto) 0.0 06/01/20 12:50: Sodium 135 L, Potassium 3.4 L, Chloride 105, Carbon Dioxide 22, Anion Gap 11.4, BUN 14, Creatinine 1.00, Estimated Creat Clear 40, Estimated GFR 55 L, Est GFR ( Amer) 67, Glucose 124 H, Calcium 9.1, Total Bilirubin 1.3, AST 25, ALT 15, Alkaline Phosphatase 67, Total Protein 6.9, Albumin 4.0, Globulin 2.9, Albumin/Globulin Ratio 1.4 06/01/20 12:50: Lactate 1.3 Result diagrams: 06/01/20 12:50 06/01/20 12:50 Orders (Tests/Meds): ED MEDICATIONS Generic Name Dose Route Start Last Admin Trade Name Freq PRN Reason Stop Dose Admin Ceftriaxone Sodium 1 gm/ 50 mls @ 100 mls/hr 06/01/20 12:45 06/01/20 12:58 Sodium Chloride IV 06/15/20 12:44 100 mls/hr Q24H KAROLINE Administration Protocol Sodium Chloride 1,000 mls @ 999 mls/hr 06/01/20 15:15 06/01/20 15:01 Sod Chlor 0.9% 1000ml Bag IV 06/01/20 16:15 999 mls/hr .Q1H1M KAROLINE Administration Discontinued Medications Generic Name Dose Route Start Last Admin Trade Name Freq PRN Reason Stop Dose Admin Acetaminophen 650 mg 06/01/20 12:02 06/01/20 12:08 Acetaminophen 325mg Tab PO 06/01/20 12:03 650 mg ONCE ONE Administration Ondansetron HCl 4 mg 06/01/20 12:42 06/01/20 12:57 Ondansetron 4mg/2ml Vial IV 06/01/20 12:43 4 mg ONCE ONE Administration Sodium Chloride 1,000 ml 06/01/20 12:42 06/01/20 12:58 Sodium Chloride 0.9% 1000ml Bag IV 06/01/20 12:43 1,000 ml BOLUS ONE Administrat
[2020-06-01 12:31] LABS: Bacteria,Urine 2+ /lpf
[2020-06-01 13:06] LABS: Basophils % 0.4 % (0.1-2.0); Hemoglobin 11.8 g/dL (12.2-16.2); Lymphocytes # 1.3 K/mm3 (0.7-4.5); Lymphocytes % 11.6 % (10-50); Mean Corpuscular HGB Conc 32.9 g/dL (31.8-35.4); Mean Corpuscular Hemoglobin 26.7 pg (27.0-31.2); Mean Corpuscular Volume 81.3 fl (81-99); Mean Platelet Volume 9.1 fl (7.4-10.4); Monocytes # 0.8 K/mm3 (0.1-1.0); Monocytes % 7.2 % (1.7-9.3); Neutrophils # 9.3 K/mm3 (1.8-7.8); Neutrophils % 80.8 % (37.0-80.0); Platelet Count 148 K/mm3 (142-424); Red Blood Count 4.43 M/mm3 (4.20-5.40); Red Cell Distribution Width 19.5 % (11.5-17.5); White Blood Count 11.5 K/mm3 (4.8-10.8)
[2020-06-01 13:10] LABS: Chloride 105 mmol/L (98-107); Potassium 3.4 mmoL/L (3.5-5.1); Sodium 135 mmol/L (136-145)
[2020-06-01 13:13] LABS: Alanine Aminotransferase 15 U/L (12-78); Albumin/Globulin Ratio 1.4 (1.1-1.8); Alkaline Phosphatase 67 U/L (38-126); Anion Gap 11.4 mEq/L (5-15); Aspartate Amino Transferase 25 U/L (14-36); Bilirubin,Total 1.3 mg/dl (0.2-1.3); Blood Urea Nitrogen 14 mg/dl (7-17); Calcium 9.1 mg/dl (8.4-10.2); Carbon Dioxide 22 mmol/L (22.0-30.0); Creatinine Clearance Estimated 40 mL/min (50-200); Estimated Glomerular Filt Rate 55 ml/min (>60); GFR (African American) 67 ML/MIN (>60); Globulin 2.9 g/dL (1.3-3.2); Glucose 124 mg/dl (74-100); Total Protein,Serum 6.9 g/dl (6.3-8.2)
[2020-06-01 13:30] LABS: Lactic Acid 1.3 mmol/L (0.7-2.1)
[2020-06-01 15:34] LABS: Adenovirus,PCR Not Detected (NotDetected); Bordetella Pertussis Not Detected (NotDetected); Chlamydophila Pneumoniae, PCR Not Detected (NotDetected); Coronavirus 19, PCR Not Detected (NotDetected); Coronavirus 229E Not Detected (NotDetected); Coronavirus NL63 Not Detected (NotDetected); Coronavirus OC43 Not Detected (NotDetected); Coronovirus HKU1,PCR Not Detected (NotDetected); Human Metapneumovirus Not Detected (NotDetected); Influenza A, PCR Not Detected (NotDetected); Influenza AH1, 2009 Not Detected (NotDetected); Influenza AH1, PCR Not Detected (NotDetected); Influenza AH3,PCR Not Detected (NotDetected); Influenza B, PCR Not Detected (NotDetected); Mycoplasma Pneumoniae, PCR Not Detected (NotDetected); Parainfluenza 1, PCR Not Detected (NotDetected); Parainfluenza 2, PCR Not Detected (NotDetected); Parainfluenza 3, PCR Not Detected (NotDetected); Parainfluenza 4, PCR Not Detected (NotDetected); Respiratory Syncytial Virus Not Detected (NotDetected); Rhinovirus/Enterovirus Not Detected (NotDetected)
--- NOTE | 2020-06-01 17:33 | PC.NURSE ---
report given to sonya griffin rn on second floor at this time
[2020-06-02 01:00] VITALS: BP 101/56; PULSE 92; RESP 19; TEMP 38.1; O2SAT 95
[2020-06-02 04:00] VITALS: BP 94/51; PULSE 76; RESP 22; TEMP 36.9; O2SAT 98
--- NOTE | 2020-06-02 04:02 | PC.NURSE ---
Pt has Been up to bathroom to void multiple times this shift. Gait is unsteady. Assistance needed. Pt c/o flank pain this morning. She stated that this has been going on for some time. Temp has been elevated at times this shift. It is currently 99.0 at this time. Other VSS. BP has been stable. No other concerns. Will continue to monitor.
[2020-06-02 05:09] VITALS: BMI 19.7
[2020-06-02 06:07] LABS: Basophils % 0.2 % (0.1-2.0); Eosinophils % 0.1 % (0.1-12.0); Lymphocytes # 0.8 K/mm3 (0.7-4.5); Lymphocytes % 14.3 % (10-50); Mean Corpuscular HGB Conc 32.9 g/dL (31.8-35.4); Mean Corpuscular Hemoglobin 27.1 pg (27.0-31.2); Mean Corpuscular Volume 82.4 fl (81-99); Mean Platelet Volume 8.9 fl (7.4-10.4); Monocytes # 0.4 K/mm3 (0.1-1.0); Monocytes % 7.2 % (1.7-9.3); Neutrophils # 4.6 K/mm3 (1.8-7.8); Neutrophils % 78.2 % (37.0-80.0); Platelet Count 99 K/mm3 (142-424); Red Blood Count 3.49 M/mm3 (4.20-5.40); Red Cell Distribution Width 19.3 % (11.5-17.5); White Blood Count 5.8 K/mm3 (4.8-10.8)
[2020-06-02 06:10] LABS: Hematocrit 28.8 % (37.0-47.0); Hemoglobin 9.5 g/dL (12.2-16.2)
[2020-06-02 06:18] LABS: Anion Gap 6.8 mEq/L (5-15); Blood Urea Nitrogen 10 mg/dl (7-17); Carbon Dioxide 19 mmol/L (22.0-30.0); Chloride 112 mmol/L (98-107); Creatinine Clearance Estimated 44 mL/min (50-200); Estimated Glomerular Filt Rate 72 ml/min (>60); GFR (African American) 87 ML/MIN (>60); Glucose 95 mg/dl (74-100); Sodium 135 mmol/L (136-145)
[2020-06-02 06:59] LABS: Calcium 7.6 mg/dl (8.4-10.2); Potassium 2.8 mmoL/L (3.5-5.1)
--- NOTE | 2020-06-02 07:13 | PC.NURSE ---
notified of critical labs and Blood CX.
--- NOTE | 2020-06-02 07:31 | HMH.PHAVTE ---
[facility] Pharmacy VTE Monitoring - Patient Demographics Admission date: 06/01/20 Report Date: 06/02/20 Time: 07:31 Allergies/Adverse Reactions: Patient Allergies No Known Allergies Allergy (Verified 06/01/20 12:05) Height: 1.6 m Weight: 50.547 kg Patient Problems: Current Active Problems Pyelonephritis (Acute) Hypotension (Acute) - VTE Risk Labs: VTE Related Lab Results Hgb 9.5 g/dL (12.2-16.2) L D 06/02/20 05:27 Hct 28.8 % (37.0-47.0) L 06/02/20 05:27 Plt Count 99 K/mm3 (142-424) L D 06/02/20 05:27 BUN 10 mg/dl (7-17) D 06/02/20 05:27 Creatinine 0.80 mg/dl (0.52-1.04) 06/02/20 05:27 Estimated Creat Clear 44 mL/min (50-200) 06/02/20 05:27 VTE Score: 6 VTE Risk Level: Moderate Risk - Prophylaxis VTE Prophylaxis Ordered?: Yes Types of VTE Prophylaxis: TEDS Knee High Location of Applied Device: Bilateral Lower Extremeties
[2020-06-02 08:00] VITALS: BP 101/54; PULSE 74; RESP 18; TEMP 36.9; O2SAT 92
--- NOTE | 2020-06-02 08:32 | HMH.HP ---
*Admission Date: 06/01/20 *Chief complaint: flank pain *History of present illness: 69 yr old female presented to Emergency room with c/o 3-day history of diffuse lower back pain in the lower lumbar area, urinary urgency, frequency, and incontinence, and nausea with minimal vomiting. She says she feels like she is getting a UTI. Some mild suprapubic discomfort. Denies fever. last month was seen in [facility] dx with uti. [facility] History I have reviewed the patient's past medical history: Yes Medical History: Reports:: Chronic Obstructive Pulmonary Disease (COPD), Coronary Artery Disease, Osteoporosis Denies:: Cancer, Diabetes Mellitus Type 1, Diabetes Mellitus Type 2, Internal Pacemaker, MRSA, Seizures *Have you ever received a pneumonia vaccine?: Yes *Have you received a flu vaccine this season?: Yes Other Medical History: Reports: Arthritis, Hormone Therapy, Osteoporosis Other Surgeries: Yes: CABG, Tubal Ligation, Other. No: Pacemaker Amputation: No Fractures: No - *Social History Smoking Status: Former smoker Tobacco Type: cigarettes # Packs/Day (cigarettes): 1 #Yrs smoked (if former smoker): 50 Alcohol Intake: never Substance Use Type: denies use *Occupational Status:: employed Housing: house Household Members: spouse *Travel in the last 8 weeks: None Family Hx:: Diabetes, Heart Attack, Hypertension Review of Systems - Review of Systems Review of systems:: pertinent systems reviewed and negative unless documented below - Constitutional Reports malaise, Denies body ache(s), Denies fatigue, Denies fever(s) - Eyes Denies change in vision - ENT Denies nosebleed - *Cardiovascular Denies chest pain with activity - *Respiratory Denies chest congestion - *Gastrointestinal Reports abdominal pain, Reports nausea, Reports vomiting - *Genitourinary Reports difficulty urinating, Reports urinary incontinence, Reports urinary urgency - *Musculoskeletal Denies joint pain - Integumentary/Breasts Denies rash - *Neurologic Denies dizziness - Psychiatric Denies lack of enjoyment, Denies confusion - Endocrine Denies excessive sweating - Hematologic/Lymphatic Denies easy bruising - Allergic/Immunologic Denies itchy eyes Meds Home Medications Medication Instructions Recorded Confirmed Type aspirin 81 mg tablet,delayed 81 mg PO DAILY 09/03/19 06/01/20 History release alendronate 70 mg tablet 70 mg PO QWEEK 09/26/19 06/01/20 History Cholecalciferol (Vitamin D3) 50 mcg PO DAILY 10/05/19 06/01/20 History [Vitamin D3] Fluticasone/Vilanterol [Breo 1 inh INHALATION DAILY 10/05/19 05/26/20 History Ellipta] pramipexole 0.125 mg tablet 0.125 mg PO QHS #90 tab 12/18/19 06/01/20 Rx albuterol sulfate 90 mcg/actuation 2 puff INHALATION Q4-6H PRN 02/01/20 05/26/20 History aerosol inhaler mometasone-formoterol HFA 200 2 puff INHALATION BID 02/01/20 05/26/20 History mcg-5 mcg/actuation aerosol inhaler tiotropium bromide 18 mcg capsule 1 cap INHALATION DAILY 02/01/20 05/26/20 History with inhalation device atorvastatin 20 mg tablet 40 mg PO DAILY tab 02/18/20 06/01/20 History hydroxychloroquine 200 mg tablet 200 mg PO DAILY tab 05/26/20 06/01/20 History Allergies Allergy/AdvReac Type Severity Reaction Status Date / Time No Known Allergies Allergy Verified 06/01/20 12:05 Exam Vital signs and Labs for Last 24 Hours: Temp Pulse Resp BP Pulse Ox 98.4 F 76 22 94/51 L 98 06/02/20 04:00 06/02/20 04:00 06/02/20 04:00 06/02/20 04:00 06/02/20 04:00 Laboratory Results - last 24 hr 06/01/20 11:55: Urine Color Dk yellow, Urine Appearance Cloudy, Urine pH 6.0, Ur Specific [place] 1.025, Urine Protein 3+, Urine Glucose (UA) Negative, Urine Ketones Trace, Urine Blood 3+, Urine Nitrate Positive, Urine Bilirubin Negative, Urine Urobilinogen 1.0, Ur Leukocyte Esterase 2+ A, Urine RBC 3-5, Urine WBC Tntc, Ur Squamous Epith Cells 3-5, Urine Bacteria 2+ 06/01/20 12:50: WBC 11.5 H, RBC 4.43,
--- NOTE | 2020-06-02 09:40 | HMH.PHAINT ---
MEDICATION RECONCILIATION COMPLETED ON PATIENT USING EXTERNAL FILL HISTORY FROM PHARMACY, LIST FROM PHYSICIAN OFFICE, AND PATIENT INTERVIEW. 4 INHALERS WERE ON PATIENT'S HOME MED LIST, BUT PATIENT STATES SHE IS CURRENTLY NOT ON ANY. THESE WERE REMOVED FROM LIST. -CHER GREENWOODD
[2020-06-02 14:08] VITALS: BMI 19.5
[2020-06-02 16:00] VITALS: BP 107/52; PULSE 79; RESP 14; TEMP 37.3; O2SAT 96
[2020-06-02 20:00] VITALS: BP 111/56; PULSE 68; RESP 16; TEMP 36.7; O2SAT 100
--- NOTE | 2020-06-02 20:31 | PC.NURSE ---
No needs voiced shift. Treated once this shift for SORIA w/ tylenol. Remains on room air. Pt independent w/ adl's. Showered and received linen change. Currently sitting up in bed watching TV. Call tanya w/in reach.
[2020-06-03 04:00] VITALS: BP 137/70; PULSE 89; RESP 18; TEMP 37.7; O2SAT 95
[2020-06-03 05:37] VITALS: BMI 19.9
--- NOTE | 2020-06-03 06:20 | PC.NURSE ---
no acute changes since prior assessment, pt is AxOx4, lungs CTA, remains on room air, has been up with standby assist, no complaints of SOA or chest pain
[2020-06-03 06:52] LABS: Anion Gap 7.8 mEq/L (5-15); Blood Urea Nitrogen 8 mg/dl (7-17); Calcium 7.4 mg/dl (8.4-10.2); Carbon Dioxide 19 mmol/L (22.0-30.0); Chloride 113 mmol/L (98-107); Creatinine Clearance Estimated 44 mL/min (50-200); Estimated Glomerular Filt Rate 100 ml/min (>60); GFR (African American) 121 ML/MIN (>60); Glucose 95 mg/dl (74-100); Sodium 137 mmol/L (136-145)
[2020-06-03 07:07] LABS: Potassium 2.8 mmoL/L (3.5-5.1)
[2020-06-03 07:44] LABS: Basophils % 0.2 % (0.1-2.0); Eosinophils % 0.4 % (0.1-12.0); Hematocrit 26.9 % (37.0-47.0); Hemoglobin 8.7 g/dL (12.2-16.2); Lymphocytes # 0.8 K/mm3 (0.7-4.5); Lymphocytes % 19.2 % (10-50); Mean Corpuscular HGB Conc 32.5 g/dL (31.8-35.4); Mean Corpuscular Hemoglobin 26.6 pg (27.0-31.2); Mean Corpuscular Volume 81.8 fl (81-99); Mean Platelet Volume 9.4 fl (7.4-10.4); Monocytes # 0.3 K/mm3 (0.1-1.0); Monocytes % 6.3 % (1.7-9.3); Neutrophils # 3.2 K/mm3 (1.8-7.8); Platelet Count 90 K/mm3 (142-424); Red Blood Count 3.29 M/mm3 (4.20-5.40); Red Cell Distribution Width 19.3 % (11.5-17.5); White Blood Count 4.3 K/mm3 (4.8-10.8)
[2020-06-03 08:00] VITALS: BP 142/62; PULSE 83; RESP 16; RESP 18; TEMP 36.9; O2SAT 96
--- NOTE | 2020-06-03 09:17 | HMH.ACPN2 ---
Internal Medicine - PN: Subj *Date: 06/03/20 *Time: 20:01 Interval history: 69-year-old female patient sitting up in bed resting quietly, she still reports nausea and ongoing difficulty swallowing. She reports she has had difficulty swallowing for several weeks now and reports episodes of having to double swallow foods. Currently awaiting urine culture and blood cultures x2. Exam Vital signs and Labs for Last 24 Hours: Temp Pulse Resp BP Pulse Ox 98.4 F 83 18 142/62 H 96 06/03/20 08:00 06/03/20 08:00 06/03/20 08:00 06/03/20 08:00 06/03/20 08:00 Laboratory Results - last 24 hr 06/03/20 06:23: WBC 4.3 L D, RBC 3.29 L, Hgb 8.7 L, Hct 26.9 L, MCV 81.8, MCH 26.6 L, MCHC 32.5, RDW 19.3 H, Plt Count 90 L, MPV 9.4, Neut % (Auto) 74.0, Lymph % (Auto) 19.2, [place] % (Auto) 6.3, Eos % (Auto) 0.4, Baso % (Auto) 0.2, Neut # (Auto) 3.2, Lymph # (Auto) 0.8, [place] # (Auto) 0.3, Eos # (Auto) 0.0, Baso # (Auto) 0.0 06/03/20 06:23: Sodium 137, Potassium 2.8 L*, Chloride 113 H, Carbon Dioxide 19 L, Anion Gap 7.8, BUN 8, Creatinine 0.60 D, Estimated Creat Clear 44, Estimated GFR 100, Est GFR ( Amer) 121 D, Glucose 95, Calcium 7.4 L I & O for Last 24 hours: Intake & Output 05/31/20 06/01/20 06/02/20 06/03/20 22:59 23:59 23:59 23:59 Intake Total 3116 / 3116 240 / 240 Output Total 0 / 0 Balance 3116 / 3116 240 / 240 Weight 110 lb 3.698 oz 112 lb 6 oz Microbiology Reports for the Last 24 Hours: Microbiology 06/01/20 11:55 Urine,Clean Catch Urine Culture - Preliminary Gram Negative Rods 06/01/20 12:50 Blood Blood Culture - Preliminary 06/01/20 12:50 Blood Blood Culture - Preliminary - Constitutional no acute distress - *Routine HEENT Exam Head: Present: normocephalic Eye: Present: EOMI ENT: Present: mucous membranes moist - *Routine Neck Exam Present: supple, trachea midline. Absent: tracheal deviation - *Routine Respiratory Exam Present: CTA bilaterally. Absent: accessory muscle use - *Routine Cardiovascular Exam Present: RRR, murmur - *Routine Abdominal Exam Present: soft, normoactive bowel sounds, tenderness, rigid - *Routine Extremities Exam Present: full ROM, pulses intact. Absent: cyanosis, clubbing, calf tenderness - *Routine Skin Exam Present: intact, dry, warm. Absent: cyanosis, erythema - *Routine Neurological Exam Present: alert, oriented X3. Absent: motor deficit, pronator drift - Routine Psychiatric Exam Present: normal affect, normal thought process, auditory hallucinations. Absent: visual hallucinations Assessment and Plan (1) Bacteremia Status: Acute Category: Medical Code(s): R78.81 - Bacteremia (2) Abdominal pain Status: Acute Qualifiers: Abdominal location: unspecified location Qualified Code(s): R10.9 - Unspecified abdominal pain Category: Medical Code(s): R10.9 - Unspecified abdominal pain (3) UTI (urinary tract infection) Status: Acute Qualifiers: Urinary tract infection type: site unspecified Hematuria presence: without hematuria Qualified Code(s): N39.0 - Urinary tract infection, site not specified Category: Medical Code(s): N39.0 - Urinary tract infection, site not specified - Assessment and plan all Dx Assessment and Plan for all problems:: Rounded with Dr. Ramirez, all orders per Dr. Ramirez: 1. Awaiting blood cultures and urine culture 2. Speech to eval 3. PT eval 4. Up to chair for all meals
--- NOTE | 2020-06-03 13:48 | HMH.SLDYSPHA ---
Speech & Language Evaluation Speech/Language Dysphagia Evaluation Start: 06/03/20 11:51 Freq: ONCE Status: Active Protocol: Document 06/03/20 13:35 ALEKS (Rec: 06/03/20 13:48 ALEKS [id number]) Dysphagia Assess/Goals/Plan Assessment Date of Evaluation: 06/03/20 Evaluation Type Initial Certification Assessment/Problems Dysphagia Does Patient Qualify for Service No Qualify/Failure Comment Patient exhibited no overt s/s of dysphagia. Compensatory strategies put in place. Plan Pt/Guardian verbally ack understanding Yes: RN notified of dx/prognosis/goals G -code Required No General Information General Current Food Consistancy Regular,Thin Liquids Dentition Upper Only,Good Dentition Oxygen Status Room Air Facial Symmetry Symmetrical Patient Orientation Person,Place,Time,Situation Ability to Follow Directions Excellent Communication Ability No Impairment Dysphagia:Food Presentation Evaluation Food Type Pureed,Mechanical Soft,Regular ,Liquid,Pudding Dysphagia Evaluation Summary Ms. Worley was given the following consistencies: thins via straw and open cup, pudding, pureed, mechanical soft, and regular. No overt s/ s of dysphagia noted during evaluation. It is recommended that Ms. Worley be placed on mechanical soft diet with chopped meats with gravy/sauce with thin liquids. She was educated on alternating between bite and sip and take small bites and small sips. Stroke Dysphagia Assessment PHYSICIAN CERTIFICATION: I certify the specified therapy services for Jacque Worley are required, authorized, and reviewed every 30 days.
[2020-06-03 16:00] VITALS: BP 124/90; PULSE 71; RESP 19; TEMP 36.6; O2SAT 98
[2020-06-03 20:00] VITALS: BP 121/74; PULSE 86; RESP 16; TEMP 37.1; O2SAT 98
--- NOTE | 2020-06-03 20:07 | PC.NURSE ---
Pt up to chair this shift. No complaints voiced. Was able to keep her lunch down, although she did not each much supper. Ambulates w/ standby assistance to bathroom. Has had two loose stools this shift. Showered independently and linens changed. Daughter visited this afternoon. Call tanya w/in reach.
[2020-06-04 03:46] VITALS: BP 141/61; PULSE 79; RESP 16; TEMP 36.8; O2SAT 93
--- NOTE | 2020-06-04 03:57 | PC.NURSE ---
Pt has slept at intervals this shift. Has c/o some soa at times this shift. O2 sats have remained in upper 90s. Lungs noted to have scattered rhonchi and crackles to (L) base. Pt also noted to have cough. Incentive spirometer provided to pt along with education on use. Pt has ambulated to BR without any difficulty. Incontinence of bladder noted. Pt has had 2 loose stools this shift. No other concerns. Call light within reach. Will continue to monitor.
[2020-06-04 04:09] VITALS: BP 140/61; PULSE 88; RESP 20; TEMP 36.6; O2SAT 96
[2020-06-04 04:57] VITALS: BMI 20.2
[2020-06-04 08:00] VITALS: BP 110/67; PULSE 75; RESP 18; TEMP 37.1; O2SAT 97
[2020-06-04 08:13] LABS: Basophils % 0.2 % (0.1-2.0); Eosinophils # 0.1 K/mm3 (0.0-0.4); Eosinophils % 1.5 % (0.1-12.0); Hematocrit 27.2 % (37.0-47.0); Hemoglobin 9.4 g/dL (12.2-16.2); Lymphocytes # 0.9 K/mm3 (0.7-4.5); Lymphocytes % 22.8 % (10-50); Mean Corpuscular HGB Conc 34.5 g/dL (31.8-35.4); Mean Corpuscular Hemoglobin 27.3 pg (27.0-31.2); Mean Corpuscular Volume 79.3 fl (81-99); Mean Platelet Volume 9.4 fl (7.4-10.4); Monocytes # 0.3 K/mm3 (0.1-1.0); Monocytes % 6.6 % (1.7-9.3); Neutrophils # 2.8 K/mm3 (1.8-7.8); Neutrophils % 68.9 % (37.0-80.0); Platelet Count 104 K/mm3 (142-424); Red Blood Count 3.43 M/mm3 (4.20-5.40); White Blood Count 4.1 K/mm3 (4.8-10.8)
[2020-06-04 08:18] LABS: Chloride 111 mmol/L (98-107); Sodium 139 mmol/L (136-145)
[2020-06-04 08:21] LABS: Anion Gap 7.7 mEq/L (5-15); Blood Urea Nitrogen 4 mg/dl (7-17); Carbon Dioxide 23 mmol/L (22.0-30.0); Creatinine Clearance Estimated 45 mL/min (50-200); Estimated Glomerular Filt Rate 123 ml/min (>60); GFR (African American) 149 ML/MIN (>60)
[2020-06-04 08:22] LABS: Glucose 87 mg/dl (74-100)
[2020-06-04 08:25] LABS: Potassium 2.7 mmoL/L (3.5-5.1)
--- NOTE | 2020-06-04 08:51 | HMH.DCSUM ---
General - General Admission date:: 06/01/20 Discharge date: 06/04/20 HPI HPI: 69 yr old female presented to Emergency room with c/o 3-day history of diffuse lower back pain in the lower lumbar area, urinary urgency, frequency, and incontinence, and nausea with minimal vomiting. She says she feels like she is getting a UTI. Some mild suprapubic discomfort. Denies fever. last month was seen in [facility] dx with uti. Hospital Course Hospital Course: 69 yr old female presented to Emergency room with c/o 3-day history of diffuse lower back pain in the lower lumbar area, urinary urgency, frequency, and incontinence, and nausea with minimal vomiting. She says she feels like she is getting a UTI. Some mild suprapubic discomfort. Denies fever. last month was seen in [facility] dx with uti. SARS-COV-2 PCR negative Urine culture positive for E. coli Blood cultures x2 positive for E. coli She has received Ceftriaxone IV while inpatient 69-year-old female patient sitting up in chair, she reports she is feeling better today. Oxygen saturation 97% on room air, vitals are stable she is not tachycardic, and has been afebrile for last 24 hours. Discussed discharge to home with antibiotics, she is agreeable to this. Lab work today white blood cell count 4.1, hemoglobin 9.4, hematocrit 27.2 Sodium 139, potassium 2.7 will be replaced, BUN 4, creatinine 0.5 PLAN: 1. We will discharge home today 2. Levoflox 750mg daily x 7 days 3. Follow up PCP 1 week Objective Vital signs: Temp Pulse Resp BP Pulse Ox 98.8 F 75 18 110/67 97 06/04/20 08:00 06/04/20 08:00 06/04/20 08:00 06/04/20 08:00 06/04/20 08:00 no acute distress - *Routine HEENT Exam Head: Present: normocephalic Eye: Present: EOMI ENT: Present: mucous membranes moist - *Routine Neck Exam Present: supple, trachea midline. Absent: tracheal deviation - *Routine Respiratory Exam Present: CTA bilaterally. Absent: accessory muscle use - *Routine Cardiovascular Exam Present: RRR - *Routine Abdominal Exam Present: soft, normoactive bowel sounds. Absent: tenderness, firm - *Routine Extremities Exam Present: full ROM, pulses intact. Absent: cyanosis, calf tenderness - *Routine Skin Exam Present: intact, dry, warm. Absent: cyanosis, jaundice - *Routine Neurological Exam Present: alert, oriented X3. Absent: pronator drift, altered mental status - Routine Psychiatric Exam Present: normal affect, normal thought process. Absent: auditory hallucinations, visual hallucinations Results Labs on day of discharge: Labs from last 24 hours 06/04/20 06/04/20 07:30 07:30 WBC 4.1 L RBC 3.43 L Hgb 9.4 L Hct 27.2 L MCV 79.3 L MCH 27.3 MCHC 34.5 RDW 19.0 H Plt Count 104 L MPV 9.4 Neut % (Auto) 68.9 Lymph % (Auto) 22.8 [place] % (Auto) 6.6 Eos % (Auto) 1.5 Baso % (Auto) 0.2 Neut # (Auto) 2.8 Lymph # (Auto) 0.9 [place] # (Auto) 0.3 Eos # (Auto) 0.1 Baso # (Auto) 0.0 Sodium 139 Potassium 2.7 L* Chloride 111 H Carbon Dioxide 23 D Anion Gap 7.7 BUN 4 L D Creatinine 0.50 L Estimated Creat Clear 45 Estimated GFR 123 Est GFR ( Amer) 149 D Glucose 87 Calcium 8.0 L Preliminary micro results at discharge 06/01/20 12:50 Blood Culture - Preliminary Blood Escherichia coli 06/01/20 12:50 Blood Culture - Preliminary Blood Escherichia coli - Additional Comments Rounded with Dr. Ramirez, all orders per Dr. Ramirez: 1. We will discharge home today 2. Levoflox 750mg daily x 7 days 3. Follow up PCP 1 week DS: Diagnosis - Discharge Diagnosis (1) Bacteremia Status: Acute (2) Abdominal pain Status: Acute (3) UTI (urinary tract infection) Status: Acute (4) E coli bacteremia Status: Acute (5) E. coli urinary tract infection Status: Acute (6) Escherichia coli sepsis Status: Acute Discharge P
--- NOTE | 2020-06-04 14:00 | PC.NURSE ---
during morning rounds it was reported patient potassium was 2.7 to md. 40 meq of potassium po was ordered for patient.
== END 2020-06-04 13:25 | disposition home or self-care (01) ==
LOC: ER 15:21 → 2ND 15:38
PROVIDERS: Nurse Practitioner Family; Admitting Provider Family Medicine; Emergency Provider Emergency Medicine; PCP Emergency Medicine; Visit Provider Emergency Medicine
DX: N39.0 Urinary tract infection, site not specified (principal); R78.81 Bacteremia; I25.10 Atherosclerotic heart disease of native coronary artery without angina pectoris; J44.9 Chronic obstructive pulmonary disease, unspecified; Z79.899 Other long term (current) drug therapy
CPT/HCPCS: 36415; 80048; 80053; 81001; 83605; 85025; 87040; 87077; 87086; 87088; 87186; 87581; 87633; 87798; 92610; 96365; 96367; 96375; 97161; 99285; G0378; J2405

== ENCOUNTER → 2020-06-11 16:34 | Outpatient (CLI) | payer MEDICARE, SELFPAY | PROVIDERS: Visit Provider Nurse Practitioner Family | DX: B96.20 Unspecified Escherichia coli [E. coli] as the cause of diseases classified elsewhere (principal); N39.0 Urinary tract infection, site not specified; R78.81 Bacteremia | CPT/HCPCS: 87086 ==

== ENCOUNTER → 2020-08-25 10:42 | Outpatient (CLI) | payer MEDICARE, SELFPAY ==
--- NOTE | 2020-08-25 10:53 | XR_ITS ---
PROCEDURE: XR CHEST 2V CLINICAL HISTORY: chest pain/hx of CABG COMPARISON: CR CXR2V XR chest 2V from 10/22/2017 CR CXR2V XR chest 2V from 04/11/[address] ANGIO CHEST from 08/29/2019 CR XR CHEST 2V from 08/29/2019 FINDINGS: A single sternotomy wires noted superiorly. There has been a prior CABG. Normal heart size. No evidence of CHF. COPD. Biapical pleural parenchymal scarring is noted. Calcified granuloma left upper lobe. No lobar consolidation or collapse. There is mild chronic wedging involving L1 IMPRESSION: Interval median sternotomy. COPD with biapical scarring. No acute finding Dictated by: Quan Gudino MD 08/25/2020 11:45 Quan Gudino MD in [place] 08/25/2020 11:45
[2020-08-25 12:04] LABS: Basophils % 0.2 % (0.1-2.0); Eosinophils # 0.1 K/mm3 (0.0-0.4); Eosinophils % 0.7 % (0.1-12.0); Hematocrit 37.4 % (37.0-47.0); Hemoglobin 12.8 g/dL (12.2-16.2); Lymphocytes # 2.3 K/mm3 (0.7-4.5); Lymphocytes % 26.9 % (10-50); Mean Corpuscular HGB Conc 34.4 g/dL (31.8-35.4); Mean Corpuscular Volume 84.5 fl (81-99); Monocytes # 0.6 K/mm3 (0.1-1.0); Monocytes % 6.4 % (1.7-9.3); Neutrophils # 5.7 K/mm3 (1.8-7.8); Neutrophils % 65.8 % (37.0-80.0); Platelet Count 217 K/mm3 (142-424); Red Blood Count 4.43 M/mm3 (4.20-5.40); Red Cell Distribution Width 14.8 % (11.5-17.5); White Blood Count 8.7 K/mm3 (4.8-10.8)
[2020-08-25 12:30] LABS: Chloride 102 mmol/L (98-107); Potassium 4.2 mmoL/L (3.5-5.1); Sodium 136 mmol/L (136-145)
[2020-08-25 12:33] LABS: Alanine Aminotransferase 14 U/L (12-78); Albumin Level 4.1 g/dl (3.5-5.0); Alkaline Phosphatase 66 U/L (38-126); Aspartate Amino Transferase 21 U/L (14-36); Bilirubin,Direct 0.3 mg/dl (0.0-0.4); Bilirubin,Indirect 0.2 mg/dL (0.0-0.9); Bilirubin,Total 0.5 mg/dl (0.2-1.3); Bilirubin,Unconjugated 0.2 mg/dL (0.0-1.1); Blood Urea Nitrogen 15 mg/dl (7-17); Calcium 9.6 mg/dl (8.4-10.2); Carbon Dioxide 24 mmol/L (22.0-30.0); Cholesterol 133 mg/dl (140-200); Estimated Glomerular Filt Rate 72 ml/min (>60); GFR (African American) 87 ML/MIN (>60); Glucose 97 mg/dl (74-100); Total Protein,Serum 6.6 g/dl (6.3-8.2); Triglycerides 111 mg/dl (30-150); VLDL Cholesterol 22 mg/dL (0-40)
[2020-08-25 12:34] LABS: Chol/HDL Ratio 1.8 (1-3.5); HDL Cholesterol 76 mg/dl (40-60)
[2020-08-25 12:44] LABS: Direct LDL Cholesterol 44.65 mg/dL (100-129)
== END ==
PROVIDERS: PCP Emergency Medicine; Visit Provider Urology
DX: E78.2 Mixed hyperlipidemia (principal); I10 Essential (primary) hypertension; I25.118 Atherosclerotic heart disease of native coronary artery with other forms of angina pectoris; I48.0 Paroxysmal atrial fibrillation; I73.9 Peripheral vascular disease, unspecified; I77.4 Celiac artery compression syndrome; K55.1 Chronic vascular disorders of intestine; R06.00 Dyspnea, unspecified; Z95.1 Presence of aortocoronary bypass graft
CPT/HCPCS: 71046; 80048; 80061; 80076; 85025

== ENCOUNTER → 2020-08-30 11:00 | Outpatient (CLI) | payer MEDICARE, SELFPAY ==
[2020-08-30 16:30] LABS: 25-OH Vitamin D, Total 40.5 ng/mL (30-100)
== END ==
PROVIDERS: Visit Provider Nurse Practitioner Family
DX: E55.9 Vitamin D deficiency, unspecified (principal); Z20.822 Contact with and (suspected) exposure to COVID-19
CPT/HCPCS: 82306; U0003

== ENCOUNTER 2020-09-01 08:08 | Day surgery (SDC) | payer MEDICARE, SELFPAY ==
[2020-09-01] VITALS (32 sets, daily range): BP systolic 106–186; BP diastolic 23–149; PULSE 58–71; RESP 13–18; TEMP 36.9; O2SAT 95–100; BMI 18.4
--- NOTE | 2020-09-01 07:02 | IR_ITS ---
APPROVED REPORT Patient Location: Outpatient PROCEDURES Left heart catheterization Left ventriculogram Selective coronary angiogram Left internal mammary angiography FFR to the LAD INDICATION Coronary disease, History of coronary bypass surgery, Recurrent angina pectoris, Angiographically indeterminate coronary disease, Informed consent was obtained prior to the procedure. COMPLICATIONS NONE Estimated Blood Loss: LESS THAN 10 ML TECHNIQUE One percent lidocaine used to anesthetize the right groin. The right femoral artery was accessed via the Seldinger technique and a 5 Faro[place] sheath was placed in the right femoral artery. A JL 4, JR4 catheter were used to perform left heart catheterization, left ventriculogram selective coronary angiography as well as nonselective engagement of the left internal mammary artery. At the end of the diagnostic angiogram therapeutic heparin was administered giving a therapeutic ACT and the 5 [place] sheath was exchanged for a 6 [place] sheath. A JL4 guide catheter was placed in the ascending aorta and an FFR wire was placed distally down the LAD. A nevus FFR catheter was then advanced and adenosine was infused. The FFR index dropped to 0.81. This did not meet hemodynamic significance therefore the apparatus was removed. The patient was transferred to the postop holding in stable condition for sheath removal ANGIOGRAPHIC RESULTS The left main artery Normal The left anterior descending artery Has proximal to mid vessel tender 30 possibly 40% stenosis. 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 A medium to large first diagonal artery has a 30 to 40% ostial stenosis. 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 Currently patient is on only one antianginal medication. I recommend adding nitrates and if blood pressure will not allow then add Ranexa 500 twice daily with plans to uptitrate to 1000 mg daily 2. Maximize antianginal medication 3. LDL less than 55 4. I strongly encourage medical management. The proximal to mid LAD is small caliber and stenting this vessel would cause jailing of the first diagonal artery which would almost certainly require stenting. This would be a bifurcating proximal LAD stent with a 2.5 mm stent in the LAD and a 2 mm stent in the diagonal artery. This would be prone to in-stent restenosis and recurrent ischemia therefore it is not advised to proceed with coronary stenting and less patient is experiencing recalcitrant angina refractory to antianginal medications 5. Avoidance of tobacco products 6. Cardiac rehabilitation Electronically signed by : Nico Moncada, 09/01/2020 10:53:06
[2020-09-01 12:56] LABS: CATHL Activated Clotting Time > 400 SEC (74-125)
== END 2020-09-01 16:53 | disposition home or self-care (01) ==
LOC: CATHLAB 08:09
PROVIDERS: PCP Emergency Medicine; Visit Provider Internal Medicine
DX: E78.5 Hyperlipidemia, unspecified (principal); I10 Essential (primary) hypertension; I48.0 Paroxysmal atrial fibrillation; I73.9 Peripheral vascular disease, unspecified; I77.4 Celiac artery compression syndrome; K55.1 Chronic vascular disorders of intestine; R06.00 Dyspnea, unspecified; Z95.1 Presence of aortocoronary bypass graft; I25.118 Atherosclerotic heart disease of native coronary artery with other forms of angina pectoris
CPT/HCPCS: 85347; 93459; 93571; 99152; 99153; C1725; C1769; C1894; J0153; J1644; J2720; Q9967

== ENCOUNTER → 2020-11-19 09:53 | Outpatient (CLI) | payer MEDICARE, SELFPAY ==
--- NOTE | 2020-11-19 10:00 | XR_ITS ---
PROCEDURE: XR LUMBAR SPINE MIN 4V CLINICAL INDICATION: Low Back pain COMPARISON: CR LS5 LUMBAR SPINE 5 VIEWS from 10/15/[address] ANGIO CHEST from 08/29/2019 FINDINGS: There is mild wedge compression changes involving the L1 vertebral body with loss of height anteriorly of approximately 25 percent. This did appear to be present on a previous chest CT of 08/29/2019. There is 5 mm anterolisthesis of L5 on S1. No acute fracture or dislocation. No lytic or blastic change. Bilateral pars defects are present at L5-S1. There is generalized vascular calcification. Bilateral upper quadrant calcifications are present and may be due to granulomas in the liver and spleen. IMPRESSION: No definite acute finding. Chronic wedge compression changes of L1 without retropulsion. Grade 1 spondylitic spondylolisthesis L5 on S1. Dictated by: Quan Gudino MD 11/19/2020 15:02 Quan Gudino MD in [facility] 11/19/2020 15:02
--- NOTE | 2020-11-19 10:00 | XR_ITS ---
PROCEDURE: XR HIP RT 2-3V W/PELVIS CLINICAL INDICATION: R hIP Pain COMPARISON: No exams were available for comparison FINDINGS: No fracture or dislocation is evident. No significant degenerative change. No lytic or blastic change. Unremarkable soft tissues. IMPRESSION: No acute findings. Dictated by: Quan Gudino MD 11/19/2020 15:04 Quan Gudino MD in [facility] 11/19/2020 15:04
== END ==
PROVIDERS: PCP Emergency Medicine; Visit Provider Nurse Practitioner Family
DX: M25.551 Pain in right hip (principal); M54.5 Low back pain
CPT/HCPCS: 72110; 73502

== ENCOUNTER 2020-11-19 18:54 | Emergency (ER) | payer MEDICARE, SELFPAY ==
[2020-11-19 19:48] VITALS: BP 132/75; PULSE 72; RESP 15; TEMP 36.8; O2SAT 98; BMI 39.1
--- NOTE | 2020-11-19 19:51 | HMH.EDGENADL ---
ED Disposition Clinical Impression: Lumbar radiculopathy Back pain Qualifiers: Back pain location: low back pain Chronicity: chronic Back pain laterality: bilateral Sciatica presence: with sciatica Sciatica laterality: sciatica of right side Qualified Code(s): M54.41 - Lumbago with sciatica, right side Disposition: Home, Self-Care Condition on Discharge: Fair Instructions: DI for Low Back Pain Referrals: Jose Ramirez MD [Primary Care Provider] - - Critical Care Critical Care Time: No Attestation: On 11/19/20, the high probability of a clinically significant, sudden or life threatening deterioration of the following system(s) required my full and direct attention, intervention and personal management. The time I documented below is in addition to time spent performing reported procedures but includes the following listed in this critical care notation. Medical Decision Making - Medical Records Medical records reviewed: Yes: I reviewed the patient's medical records. - Dread Inquiry Pt receiving controlled substance: Yes Dread was queried for this patient: Yes Risks and benefits of using a controlled substance: were not discussed with pt by me Vital Signs: 11/19/20 19:48 11/19/20 20:02 Temperature 98.2 F 98.5 F Temperature Source Oral Oral Pulse Rate 73 Pulse Rate [Right Brachial] 72 Respiratory Rate 15 18 Blood Pressure 121/70 Blood Pressure [Right Arm] 132/75 Blood Pressure Mean [Right Arm] 94 Blood Pressure Source Automatic Cuff Blood Pressure Source [Right Arm] Automatic Cuff Blood Pressure Position Sitting Blood Pressure Position [Right Arm] Sitting 02 Sat by Pulse Oximetry 98 Oxygen Delivery Method Room Air Room Air Orders (Tests/Meds): ED MEDICATIONS Discontinued Medications Generic Name Dose Route Start Last Admin Trade Name Freq PRN Reason Stop Dose Admin Methocarbamol 1,000 mg 11/19/20 21:00 11/19/20 20:15 Methocarbamol 500mg Tablet PO 12/19/20 20:59 1,000 mg BID KAROLINE Administration Oxycodone HCl 5 mg 11/19/20 19:47 11/19/20 20:15 Oxycodone 5mg Immediate Release Tablet PO 12/19/20 19:46 5 mg Q4HP PRN Administration Severe Pain Medical Decision Narrative: Patient is a 70-year-old female presents the ED today for right hip and radiculopathy related pain which she has had before. Differential diagnosis includes lumbar radiculopathy, spinal injection infection, cauda equina syndrome. Patient was recently seen in the office had a spinal injections and steroid and muscle relaxing medications prescribed but has not been taking these medications as prescribed. Patient presents today in severe pain, will treat with 5 mg of oral oxycodone, 1000 mg of oral methocarbamol and reassess. 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 Pt given return precaution to return to the ED if needed. General Adult HPI - General Chief complaint: Back Pain/Injury Stated complaint: back pain Time Seen by Provider: 11/19/20 19:51 Mode of Arrival: Family Vehicle Limitations: No Limitations Description of Symptoms (Recalled from ER Triage Doc. by RN): back pain - History of Present Illness HPI narrative: A 70-year-old female with a history of coronary artery disease and COPD who presents the ED today for further evaluation of right hip pain. Patient states that has had pain in her hip which has been worse over the last couple of days, states that she went to her primary care who prescribed her cyclobenzaprine and prednisone, but states that she did not want to take these medications together because she was concerned about her heart. Patient has had a bypass surgery, takes several heart medications including aspirin Plavix, and states that she believes these medicines could interfere with her heart medications. Patient states her pain is much worse today than it was prior, on review of inte
[2020-11-19 20:02] VITALS: BP 121/70; PULSE 73; RESP 18; TEMP 36.9; O2SAT 98
== END 2020-11-19 20:41 | disposition home or self-care (01) ==
PROVIDERS: Emergency Provider Student in an Organized Health Care Education/Training Program; PCP Emergency Medicine
DX: M54.16 Radiculopathy, lumbar region (principal); M54.41 Lumbago with sciatica, right side; I25.10 Atherosclerotic heart disease of native coronary artery without angina pectoris; J44.9 Chronic obstructive pulmonary disease, unspecified; M81.0 Age-related osteoporosis without current pathological fracture; Z87.891 Personal history of nicotine dependence; Z79.899 Other long term (current) drug therapy
CPT/HCPCS: 72110; 73502; 99282

== ENCOUNTER → 2020-12-02 10:43 | Outpatient (CLI) | payer MEDICARE, SELFPAY ==
--- NOTE | 2020-12-02 10:45 | CA_ITS ---
APPROVED REPORT Right Lower Extremity Venous Study for DVT. 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 Painful varicosities. Lower back injury with radiating pain. Vein Imaging CFV (R): compressive, spontaneous, phasic, augmentation SFJ (R): compressive, spontaneous, phasic, augmentation FEM (R): compressive, spontaneous, phasic, augmentation POP (R): compressive, spontaneous, phasic, augmentation DFV (R): compressive, spontaneous, phasic, augmentation PTV (R): compressive, spontaneous, phasic, augmentation GSV (R): compressive, spontaneous, phasic, augmentation SSV (R): compressive, spontaneous, phasic, augmentation Peroneals (R):compressive, spontaneous, phasic, augmentation GAS (R): compressive, spontaneous, phasic, augmentation Findings Color flow duplex demonstrates no evidence of DVT of the following right lower extremity Veins:Common Femoral Vein, Femoral Vein, Popliteal Vein, Posterior Tibial Veins, Peroneal Veins. Negative for DVT. Conclusion Negative for DVT. Electronically signed by : Quna Gudino MD 12/02/2020 16:49:12
== END ==
PROVIDERS: PCP Emergency Medicine; Visit Provider Nurse Practitioner Family
DX: M79.604 Pain in right leg (principal); M79.89 Other specified soft tissue disorders
CPT/HCPCS: 93971

== ENCOUNTER 2020-12-04 10:00 | Outpatient (RCR) | payer MEDICARE, SELFPAY ==
--- NOTE | 2020-11-17 14:22 | HMH.PTOPEV ---
PT Outpatient Evaluation Rehab PT Outpatient Evaluation Start: 11/17/20 13:00 Freq: Status: Active Protocol: Document 11/17/20 13:57 PHORNE (Rec: 11/17/20 14:21 PHORNE [id number]) Electronically Signed By James Odonnell, PT 11/17/20 13:57 Outpatient Therapy Subjective History Subjective History Pt is 70 year old female who presents with c/o intermittent R low back pain radiating into R posterior thigh. Pt reports no numbness, tingling into R leg. No LE radidculopathy present. Pt describes the pain as an ache and sharp and gets relief via icyhot, heat, and Prednisone. Pt reports hx of RA and heart bypass surgery. Eval completed by Lea Alexander , SPT. Chief Complaint Pain Symptom Type Ache,Sharp Symptoms Relieved By Heat,OTC Meds,Prescription Meds Symptoms Aggravated By Supine,Bending/Stooping Prior Functional Limitations None Current Functional Limitations Lifting,Housework,Sleeping, Bending/Stooping Symptom Description Intermittent Level of pain today (0-10) 0 Pain scale - at its best (0-10) 0 Pain scale - at its worst (0-10) 10 Lumbopelvic Eval Posture Thoracic Spine Posture Standing Position Neutral Lumbar Spine Posture Standing Position Neutral Assistive device Assistive Devices None / NA Palapation tenderness right lumbar spinal tenderness Yes Lumbar/Sacral Palpation Findings Tenderness Lumbar/Sacral Palpation Overall Comment tenderness at R PSIS Accessory Movement L-spine Vertebrae Accessory Movements Central P/A [place] that Elicit Symptoms L2 bilateral L3 bilateral L4 bilateral L5 bilateral S1 bilateral Range of Motion Lumbar Spine ROM Reason Not Measured Within Functional Limits Manual Muscle Test Bilateral Knee Extension Strength Grade 5 Normal Knee Flexion Strength Grade 5 Normal Hip Flexion Strength Grade 5 Normal Hip Abduction Strength Grade 5 Normal Hip Adduction Strength Grade 5 Normal Extensor Hallucis Longus Strength Grade 5 Normal Ankle Dorsiflexion Strength Grade 5 Normal Gastronemius/Soleus Strength Grade 5 Normal DTR Rt Patellar 2+ Lt Patellar 2+ Rt Gastroc/Soleus 2+
== END 2020-12-04 10:05 | disposition home or self-care (01) ==
LOC: PT 10:00
PROVIDERS: PCP Emergency Medicine; Visit Provider Nurse Practitioner Family
DX: M54.5 Low back pain (principal)
CPT/HCPCS: 97014; 97033; 97110; 97163; G0283

== ENCOUNTER → 2021-01-20 18:14 | Outpatient (CLI) | payer MEDICARE, SELFPAY | PROVIDERS: Visit Provider Nurse Practitioner Family | DX: N39.0 Urinary tract infection, site not specified (principal); R35.0 Frequency of micturition; B96.20 Unspecified Escherichia coli [E. coli] as the cause of diseases classified elsewhere | CPT/HCPCS: 87086; 87088; 87186 ==

== ENCOUNTER 2021-10-11 18:03 | Emergency (ER) | payer MEDICARE, SELFPAY ==
[2021-10-11 18:10] VITALS: BP 127/68; PULSE 88; RESP 17; TEMP 37.8; O2SAT 96; BMI 17.5
[2021-10-11 18:21] LABS: Color,Urine Dark Yellow (Yellow)
[2021-10-11 18:22] LABS: Apearance,Urine Cloudy (Clear); Bilirubin,Urine 1+ (Negative); Blood, Urine 3+ (Negative); Glucose,Urine (UA) Negative (Negative); Ketones,Urine TRACE (Negative); PH,Urine 5.5 (5.0-8.5); Protein,Urine 2+ (Negative); Specific Gravity, Urine 1.025 (1.005-1.030); UTC Leukocyte Esterase,Urine 2+ (Negative); UTC Nitrate,Urine Positive (Negative); Urobilinogen,Urine 0.2 EU/dl (0.2)
--- NOTE | 2021-10-11 18:34 | HMH.EDUTC ---
[facility] [place] Disposition Clinical Impression: UTI (urinary tract infection) Qualifiers: Urinary tract infection type: site unspecified Hematuria presence: with hematuria Qualified Code(s): N39.0 - Urinary tract infection, site not specified; R31.9 - Hematuria, unspecified Disposition: Still a Patient Condition on Discharge: Fair Referrals: Jose Ramirez MD [Primary Care Provider] - Time of Disposition: 18:48 Medical Decision Making - Dread Inquiry Pt receiving controlled substance: No Dread was queried for this patient: No Vital Signs: 10/11/21 18:10 Temperature 100.1 F H Temperature Source Oral Pulse Rate [Right Brachial] 88 Respiratory Rate 17 Blood Pressure [Right Arm] 127/68 Blood Pressure Mean [Right Arm] 87 Blood Pressure Source [Right Arm] Automatic Cuff Blood Pressure Position [Right Arm] Sitting 02 Sat by Pulse Oximetry 96 Oxygen Delivery Method Room Air - Lab Data Lab results reviewed: Yes: I reviewed the patient's lab results. Lab Results 10/11/21 18:18: Urine Color Dark yellow, Urine Appearance Cloudy, Urine pH 5.5, Ur Specific [place] 1.025, Urine Protein 2+, Urine Glucose (UA) Negative, Urine Ketones Trace, Urine Blood 3+, Urine Nitrate Positive A, Urine Bilirubin 1+ A, Urine Urobilinogen 0.2, Ur Leukocyte Esterase 2+ A Orders (Tests/Meds): ORDERS Category Date Time Status Urine Culture Stat Micro 10/11/21 18:16 Received Medical Decision Narrative: Due to patient complaints, reports feeling off balance, reports multiple episodes of incontinence and states that she feels like she did when she had to be admitted a couple years ago and history of pylonephritis recommended that patient be transferred to the ED for further work up and evaluation patient initially declined but started having chills and states that she was starting to hurt worse she agreed to transfer Called ED spoke with Jeannette Silva and patient was moved to room 9 [facility] [place] HPI - General Stated complaint: possible UTI Time Seen by Provider: 10/11/21 18:15 Mode of Arrival: Ambulatory Source of Information: Patient Limitations: No Limitations Description of Symptoms (Recalled from Triage Doc. by RN): PATIENT C/O RIGHT FLANK PAIN AND BURNING/URGENCY WITH URINATION SINCE TUESDAY HEENT Symptoms (Recalled from RN notes): No Resp Symptoms (Recalled from RN notes): No Skin Symptoms (Recalled from RN notes): No MS Symptoms (Recalled from RN notes): No Functional Status (Recalled from RN notes): WNL - History of Present Illness Provider Complaint: Patient states that she has not felt well since Tue. States that she thinks she has a bad UTI again States that she has been having fever, chills, the shakes , pain in her right side and in her lower abdomen and feelign off balance. States that she has had several accidents where she hasnt been able to control her urine and has been having to wear a pad States that she had something like this before and had to be admitted to the hospital so this evening when she wasnt doing any better and started feeling sick at her stomach she decided to get family to bring her in - Related Data Home Medications Medication Instructions Recorded Confirmed aspirin 81 mg tablet,delayed 81 mg PO DAILY 09/03/19 07/06/21 release tofacitinib 11 mg tablet,extended 11 mg PO DAILY 11/14/20 07/06/21 release 24 hr Previous Rx's Medication Instructions Recorded cholecalciferol (vitamin D3) 50 50 mcg PO DAILY #90 tab 08/15/20 mcg (2,000 unit) tablet albuterol sulfate 90 mcg/actuation 2 puff INHALATION Q4-6H PRN #8.5 g 10/02/20 aerosol inhaler inhalational spacing device See Rx Instructions .ROUTE #1 each 10/02/20 cyclobenzaprine 10 mg tablet 10 mg PO TID PRN #60 tab 11/14/20 cetirizine 10 mg disintegrating 10 mg PO DAILY #30 tab 12/30/20 tablet hydroxychloroquine 200 mg tablet See Rx Instructions .ROUTE 02/03/21 .COMPLEX #90 tab atorvastatin 20 mg tablet See Rx Instructions .RO
--- NOTE | 2021-10-11 18:44 | PC.NURSE ---
PATIENT SENT TO ER PER Cade BARAJAS APRN FOR FURTHER EVALUATION. REPORT GIVEN TO Jorge DUONG RN BY Cade BARAJAS APRN
--- NOTE | 2021-10-11 18:49 | CT_ITS ---
PROCEDURE INFORMATION: Exam: CT Abdomen And Pelvis With Contrast; Kidneys Exam date and time: 10/11/2021 7:18 PM Age: 71 years old Clinical indication: Abdominal pain; Flank; Right; Prior surgery; Surgery date: 6+ months; Surgery type: Tubal ligation; Additional info: RT sided flank pain, fever, and incontinence for the last 3 days TECHNIQUE: Imaging protocol: Computed tomography of the abdomen and pelvis with intravenous contrast. Exam focused on the kidneys. Radiation optimization: All CT scans at this facility use at least one of these dose optimization techniques: automated exposure control; mA and/or kV adjustment per patient size (includes targeted exams where dose is matched to clinical indication); or iterative reconstruction. Contrast material: ISOVUE; Contrast volume: 75 ml; Contrast route: IV; COMPARISON: CR XR HIP RT 2-3V W/PELVIS 11/19/2020 10:07 AM FINDINGS: Lungs: No acute findings in the visualized lower lungs. No consolidation. Calcified posterior right basilar granuloma. Heart: The heart is not enlarged. Liver: No hepatomegaly. Calcified granulomas. Hypoattenuating liver lesions likely cysts, up to approximately 8 mm, too small to accurately characterize. Gallbladder and bile ducts: Cholelithiasis, multiple calcified gallstones. Mildly distended, elongated gallbladder. No definite wall thickening or pericholecystic fluid. Biliary tree appears within normal limits. Pancreas: The pancreas is normal. Spleen: No splenomegaly. Multiple calcified granulomas. Adrenals: The adrenal glands are normal. Kidneys and ureters: Patchy parenchymal edema and hypoenhancement of the right kidney consistent with pyelonephritis. No focal mass or abscess collection. No hydronephrosis, hydroureter, or calcified obstructing stones. Thickened, hyperenhancing right urothelium consistent with UTI. In the left kidney, there is focal posteromedial upper pole renal cortical thinning/scarring series 3, image 26. No acute findings on the left. Stomach and bowel: Colon is moderately distended with fecal material and bowel gas throughout, no dilated loops or mucosal thickening. Also mild gaseous distention of small bowel with a few scattered air-fluid levels, but no dilated loops or mucosal thickening.The stomach is normal. Appendix: No findings of appendicitis. Intraperitoneal space: There is no free intraperitoneal air. There is no significant free intraperitoneal fluid. Lymph nodes: No significantly enlarged lymph nodes by short axis criteria. Vasculature: Mild infrarenal abdominal aortic ectasia up to 2.3 cm coronal series 1001, image 22. No significant aneurysm.The vasculature demonstrates scattered mild to moderate atherosclerotic calcification. No portal venous gas. Bladder: Thickened, edematous appearing urinary bladder wall with hypervascularity suggesting cystitis. No calcified stones. No discrete mass seen. Reproductive: Uterus and adnexa are unremarkable for age. Correlate for history of bilateral tubal ligations. Bones/joints: Osteopenia. Chronic appearing mild anterior wedge compression deformity of L1. Chronic appearing mild posterior wedge compression deformity at L5. Chronic appearing bilateral L5 pars defects with grade 1 anterolisthesis L5-S1. Soft tissues: There are no soft tissue masses or fluid collections. IMPRESSION: 1. Right pyelonephritis, patchy edematous hypoenhancing right renal parenchyma, right urothelial thickening and hyperenhancement. 2. Cystitis. Thickened, edematous hypervascular urinary bladder wall 3. No calcified urinary tract stone or obstruction seen. 4. Cholelithiasis. Distended gallbladder, no CT findings of acute katherine
[2021-10-11 19:00] VITALS: PULSE 88; RESP 17; O2SAT 96; BMI 15.9
--- NOTE | 2021-10-11 19:04 | HMH.EDGENADL ---
ED Disposition Clinical Impression: UTI (urinary tract infection) Qualifiers: Urinary tract infection type: site unspecified Hematuria presence: with hematuria Qualified Code(s): N39.0 - Urinary tract infection, site not specified Disposition: Home, Self-Care Condition on Discharge: Good Additional Instructions: You have been evaluated for urinary tract infection. Please take antibiotics as prescribed, start Keflex tomorrow. Follow-up with your primary care doctor for urine culture results. Tylenol for aches, pains, fever. Pyridium for bladder spasm. Please return to the emergency department at once for any new or worsening symptoms, fever, vomiting, other concerns. Prescriptions: cephALEXin [cephALEXin 500mg capsule*] 500 mg PO Q6H #28 cap Transmission Status: Pending to [facility] # Phenazopyridine HCl [Pyridium] 200 mg PO TIDP PRN #6 tab PRN Reason: Cramping Transmission Status: Pending to [facility] # Referrals: Jose Ramirez MD [Primary Care Provider] - Time of Disposition: 19:54 - Critical Care Critical Care Time: No Attestation: On 10/11/21, the high probability of a clinically significant, sudden or life threatening deterioration of the following system(s) required my full and direct attention, intervention and personal management. The time I documented below is in addition to time spent performing reported procedures but includes the following listed in this critical care notation. Medical Decision Making - Medical Records Medical records reviewed: Yes: I reviewed the patient's medical records. - Dread Inquiry Pt receiving controlled substance: No Vital Signs: 10/11/21 18:10 10/11/21 19:00 Temperature 100.1 F H Temperature Source Oral Pulse Rate [Right Brachial] 88 88 Respiratory Rate 17 17 Blood Pressure [Right Arm] 127/68 Blood Pressure Mean [Right Arm] 87 Blood Pressure Source [Right Arm] Automatic Cuff Blood Pressure Position [Right Arm] Sitting 02 Sat by Pulse Oximetry 96 96 Oxygen Delivery Method Room Air Room Air - Lab Data Lab Results 10/11/21 18:18: Urine Color Dark yellow, Urine Appearance Cloudy, Urine pH 5.5, Ur Specific [place] 1.025, Urine Protein 2+, Urine Glucose (UA) Negative, Urine Ketones Trace, Urine Blood 3+, Urine Nitrate Positive A, Urine Bilirubin 1+ A, Urine Urobilinogen 0.2, Ur Leukocyte Esterase 2+ A 10/11/21 19:00: WBC 7.5, RBC 4.49, Hgb 13.4, Hct 39.3, MCV 87.5, MCH 29.7, MCHC 34.0, RDW 14.8, Plt Count 132 L, MPV 8.9, Neut % (Auto) 84.1 H, Lymph % (Auto) 9.1 L, Sutter % (Auto) 6.0, Eos % (Auto) 0.4, Baso % (Auto) 0.3, Neut # (Auto) 6.3, Lymph # (Auto) 0.7, Sutter # (Auto) 0.5, Eos # (Auto) 0.0, Baso # (Auto) 0.0 10/11/21 19:00: Sodium 135 L, Potassium 4.1, Chloride 104, Carbon Dioxide 23, Anion Gap 12.1, BUN 20 H, Creatinine 1.00, Estimated Creat Clear 35, Estimated GFR 55 L, Est GFR ( Amer) 67, Glucose 123 H, Calcium 9.5, Total Bilirubin 0.6, AST 27, ALT 19, Alkaline Phosphatase 62, Total Protein 6.6, Albumin 4.1, Globulin 2.5, Albumin/Globulin Ratio 1.6 10/11/21 19:00: Lactate 1.0 10/11/21 19:00: Procalcitonin 0.165 Result diagrams: 10/11/21 19:00 10/11/21 19:00 Orders (Tests/Meds): ED MEDICATIONS Generic Name Dose Route Start Last Admin Trade Name Freq PRN Reason Stop Dose Admin Ceftriaxone Sodium 1 gm/ 50 mls @ 100 mls/hr 10/11/21 19:30 10/11/21 19:23 Sodium Chloride IV 10/25/21 19:29 100 mls/hr Q24H KAROLINE Administration Discontinued Medications Generic Name Dose Route Start Last Admin Trade Name Freq PRN Reason Stop Dose Admin Acetaminophen 650 mg 10/11/21 19:19 10/11/21 19:23 Acetaminophen 325mg Tab PO 10/11/21 19:20 650 mg ONCE ONE Administration Iopamidol 75 ml 10/11/21 19:27 10/11/21 19:28 Iopamidol-370 (76%);100ml Bottle IV 10/11/21 19:28 75 ml ONCE ONE Administration Sodium Chloride 10 ml 10/11/21 19:27 10/11/21 19:28 Sodium Chloride 0.9% 10ml Syr (R
[2021-10-11 19:06] LABS: Basophils % 0.3 % (0.1-2.0); Eosinophils % 0.4 % (0.1-12.0); Hematocrit 39.3 % (37.0-47.0); Hemoglobin 13.4 g/dL (12.2-16.2); Lymphocytes # 0.7 K/mm3 (0.7-4.5); Lymphocytes % 9.1 % (10-50); Mean Corpuscular Hemoglobin 29.7 pg (27.0-31.2); Mean Corpuscular Volume 87.5 fl (81-99); Mean Platelet Volume 8.9 fl (7.4-10.4); Monocytes # 0.5 K/mm3 (0.1-1.0); Neutrophils # 6.3 K/mm3 (1.8-7.8); Neutrophils % 84.1 % (37.0-80.0); Platelet Count 132 K/mm3 (142-424); Red Blood Count 4.49 M/mm3 (4.20-5.40); Red Cell Distribution Width 14.8 % (11.5-17.5); White Blood Count 7.5 K/mm3 (4.8-10.8)
[2021-10-11 19:11] LABS: Chloride 104 mmol/L (98-107); Potassium 4.1 mmoL/L (3.5-5.1); Sodium 135 mmol/L (136-145)
[2021-10-11 19:13] LABS: Blood Urea Nitrogen 20 mg/dl (7-17); Creatinine Clearance Estimated 35 mL/min (50-200); Estimated Glomerular Filt Rate 55 ml/min (>60); GFR (African American) 67 ML/MIN (>60)
--- NOTE | 2021-10-11 19:13 | PC.NURSE ---
MD aware of blood cultures and lactic drawn and sent to lab, no order for these at this time
[2021-10-11 19:14] LABS: Alanine Aminotransferase 19 U/L (12-78); Albumin Level 4.1 g/dl (3.5-5.0); Albumin/Globulin Ratio 1.6 (1.1-1.8); Alkaline Phosphatase 62 U/L (38-126); Anion Gap 12.1 mEq/L (5-15); Aspartate Amino Transferase 27 U/L (14-36); Bilirubin,Total 0.6 mg/dl (0.2-1.3); Calcium 9.5 mg/dl (8.4-10.2); Carbon Dioxide 23 mmol/L (22.0-30.0); Globulin 2.5 g/dL (1.3-3.2); Glucose 123 mg/dl (74-100); Total Protein,Serum 6.6 g/dl (6.3-8.2)
[2021-10-11 19:47] LABS: Procalcitonin 0.165 ng/mL (0.0-2.0)
[2021-10-11 20:30] VITALS: BP 125/65; PULSE 85; RESP 18; TEMP 36.8; O2SAT 99
== END 2021-10-11 20:32 | disposition home or self-care (01) ==
LOC: UTC 18:42 → ER 18:42
PROVIDERS: Nurse Practitioner; Emergency Provider Emergency Medicine; PCP Emergency Medicine
DX: N39.0 Urinary tract infection, site not specified (principal); Z79.82 Long term (current) use of aspirin; Z79.899 Other long term (current) drug therapy; Z88.6 Allergy status to analgesic agent; J44.9 Chronic obstructive pulmonary disease, unspecified; I25.10 Atherosclerotic heart disease of native coronary artery without angina pectoris; M81.0 Age-related osteoporosis without current pathological fracture; M19.90 Unspecified osteoarthritis, unspecified site; Z95.5 Presence of coronary angioplasty implant and graft
CPT/HCPCS: 74177; 80053; 81003; 83605; 84145; 85025; 87040; 87077; 87086; 87088; 87186; 96365; 99284; J0696; Q9967

== ENCOUNTER → 2021-12-04 12:39 | Outpatient (CLI) | payer MEDICARE, SELFPAY | PROVIDERS: PCP Emergency Medicine; Visit Provider Thoracic Surgery (Cardiothoracic Vascular Surgery) | DX: Z01.812 Encounter for preprocedural laboratory examination (principal); Z20.822 Contact with and (suspected) exposure to COVID-19; T84.218A Breakdown (mechanical) of internal fixation device of other bones, initial encounter | CPT/HCPCS: C9803; U0003; U0005 ==

== ENCOUNTER 2021-12-30 16:23 | Emergency (ER) | payer MEDICARE, SELFPAY ==
--- NOTE | 2021-12-30 16:23 | ECG_ITS ---
APPROVED REPORT Exam: Resting ECG HR:76 bpm ECG Measurements Heart Rate 76 AXES MA 150 P 81 QRSd 105 QRS 74 QT 361 T 82 QTc 391 Conclusion SINUS RHYTHM WITH SINUS ARRHYTHMIA INCOMPLETE RIGHT BUNDLE BRANCH BLOCK [90+ ms QRS DURATION, TERMINAL R IN V1/V2, 40+ ms S IN I/aVL/V4/V5/V6] MODERATE ST DEPRESSION [0.05+ mV ST DEPRESSION] ABNORMAL ECG UNCONFIRMED REPORT Electronically signed by : Jon Whitney MD 12/31/2021 20:06:57
[2021-12-30 16:24] VITALS: BP 147/84; PULSE 76; RESP 18; TEMP 36.8; O2SAT 99; BMI 17.1
--- NOTE | 2021-12-30 16:28 | XR_ITS ---
PROCEDURE INFORMATION: Exam: XR Chest Exam date and time: 12/30/2021 4:54 PM Age: 71 years old Clinical indication: Shortness of breath; Other: Chest pain; Additional info: Sob/cp TECHNIQUE: Imaging protocol: Radiologic exam of the chest. Views: 1 view. COMPARISON: CR XR CHEST 2V 08/25/2020 10:54 AM FINDINGS: Lungs: Bilateral hyperinflation is present. No focal pneumonia or pneumothorax. Granulomatous density noted within the left upper lung. Pleural spaces: Apical pleural thickening noted bilaterally. There are no pleural effusions present. Heart/Mediastinum: Unremarkable. No cardiomegaly. Vasculature: The vasculature demonstrates diffuse mild atherosclerotic calcification. Bones/joints: The thoracic spine demonstrates mild degenerative changes at multiple levels. IMPRESSION: 1. Bilateral hyperinflation is present. 2. No focal pneumonia or pneumothorax.
--- NOTE | 2021-12-30 16:29 | HMH.EDGENADL ---
Discharge Plan Disposition Chief Complaint: Weakness Prescriptions Prescriptions: No Action albuterol sulfate 90 mcg/actuation HFA aerosol inhaler 2 puff INHALATION Q4-6H PRN (Reason: shortness of breath or wheezing) Qty: 8.5 5RF (DME) Aerochamber MV Spacer See Rx Instructions .Route Qty: 1 0RF Rx Instructions: As directed Zyrtec 10 mg tablet,disintegrating 10 mg PO DAILY Qty: 30 2RF prednisone 20 mg tablet 20 mg PO BID 5 Days Qty: 10 1RF pramipexole 0.125 mg tablet See Rx Instructions .ROUTE .COMPLEX Qty: 90 3RF Dose Instruction: TAKE 1 TABLET BY MOUTH NIGHTLY FOR RESTLESS LEGS Rx Instructions: TAKE 1 TABLET BY MOUTH NIGHTLY FOR RESTLESS LEGS aspirin [Adult Low Dose Aspirin] 81 mg tablet,delayed release (DR/EC) 81 mg PO DAILY cholecalciferol (vitamin D3) 50 mcg (2,000 unit) tablet 50 mcg PO DAILY Qty: 90 1RF Xeljanz XR 11 mg tablet extended release 24 hr 11 mg PO DAILY cyclobenzaprine 10 mg tablet 10 mg PO TID PRN (Reason: muscle spasm) Qty: 60 0RF fluconazole [Diflucan] 150 mg tablet 150 mg PO Q3D 0 Days Qty: 2 0RF hydroxychloroquine 200 mg tablet See Rx Instructions .ROUTE .COMPLEX Qty: 90 0RF Dose Instruction: TAKE 1 TABLET BY MOUTH EVERY DAY FOR LUNGS Rx Instructions: TAKE 1 TABLET BY MOUTH EVERY DAY FOR LUNGS alendronate 70 mg tablet See Rx Instructions .ROUTE .COMPLEX Qty: 12 0RF Dose Instruction: TAKE 1 TABLET BY MOUTH EVERY WEEK ON SAME DAY EACH WEEK Rx Instructions: TAKE 1 TABLET BY MOUTH EVERY WEEK ON SAME DAY EACH WEEK Breo Ellipta 100-25 mcg/dose blister with device 1 inh INHALATION DAILY Qty: 60 12RF levofloxacin 500 mg tablet 500 mg PO BID 7 Days Qty: 14 0RF Rx Instructions: drink plenty water nystatin 100,000 unit/mL suspension 5 ml PO QID 10 Days Qty: 200 0RF Rx Instructions: swish and swallow Paxlovid (EUA) 300 mg (150 mg x 2)-100 mg tablet See Rx Instructions PO .COMPLEX Qty: 30 0RF Rx Instructions: take TWO 150 mg tablets of nirmatrelvir with ONE 100 mg tablet of ritonavir twice daily for 5 days PO metoprolol tartrate 25 mg tablet See Rx Instructions .ROUTE .COMPLEX Qty: 30 5RF Dose Instruction: TAKE 1/2 TABLET BY MOUTH TWICE DAILY Rx Instructions: TAKE 1/2 TABLET BY MOUTH TWICE DAILY atorvastatin 20 mg tablet See Rx Instructions .ROUTE .COMPLEX Qty: 90 1RF Dose Instruction: TAKE 1 TABLET BY MOUTH DAILY FOR CHOLESTEROL Rx Instructions: TAKE 1 TABLET BY MOUTH DAILY FOR CHOLESTEROL phenazopyridine 200 MG tablet 200 mg PO TIDP PRN (Reason: Cramping) Qty: 6 0RF Discharge ED Provider: Mitchell Cox General Adult HPI General Chief complaint: Weakness Stated complaint: chest pain Time Seen by Provider: 12/30/21 16:29 Mode of Arrival: Ambulatory History of Present Illness HPI narrative: 71-year-old female with history of paroxysmal atrial fibrillation, not on anticoagulation just takes a daily baby aspirin. She also has a history of coronary artery disease and had a coronary artery bypass graft in 2019. She recently had surgery for wire removal approximately 1 month ago. She presents today with sensation that she describes as not chest pain but feeling like her heart was beating fast and hard and felt radiation up into the jaw and neck on the right side. She denies any worsening shortness of breath, denies any associated nausea, vomiting, diaphoresis. She states symptoms abated after just a few minutes and she currently denies any discomfort whatsoever. There are no treatments for symptomatic relief prior to this visit. She states she has not had any subsequent heart catheterization or other procedures after the CABG Related Data Home Medications Medication Instructions Recorded Confirmed aspirin 81 mg tablet,delayed 81 mg PO DAILY heart 09/03/19 10/21/21 release (Adult Low Dose Aspirin) jose
[2021-12-30 16:47] LABS: Basophils # 0.1 K/mm3 (0-0.2); Basophils % 0.9 % (0.1-2.0); Eosinophils # 0.1 K/mm3 (0.0-0.4); Eosinophils % 2.2 % (0.1-12.0); Hematocrit 41.8 % (37.0-47.0); Hemoglobin 13.5 g/dL (12.2-16.2); Lymphocytes # 1.9 K/mm3 (0.7-4.5); Lymphocytes % 32.9 % (10-50); Mean Corpuscular HGB Conc 32.4 g/dL (31.8-35.4); Mean Corpuscular Hemoglobin 29.7 pg (27.0-31.2); Mean Corpuscular Volume 91.7 fl (81-99); Monocytes # 0.3 K/mm3 (0.1-1.0); Monocytes % 5.5 % (1.7-9.3); Neutrophils # 3.3 K/mm3 (1.8-7.8); Neutrophils % 58.5 % (37.0-80.0); Platelet Count 181 K/mm3 (142-424); Red Blood Count 4.56 M/mm3 (4.20-5.40); White Blood Count 5.7 K/mm3 (4.8-10.8)
[2021-12-30 16:55] LABS: Alanine Aminotransferase 19 U/L (12-78); Albumin Level 4.1 g/dl (3.5-5.0); Alkaline Phosphatase 77 U/L (38-126); Anion Gap 11.9 mEq/L (5-15); Aspartate Amino Transferase 36 U/L (14-36); Bilirubin,Direct 0.1 mg/dl (0.0-0.4); Bilirubin,Indirect 0.1 mg/dL (0.0-0.9); Bilirubin,Total 0.2 mg/dl (0.2-1.3); Bilirubin,Unconjugated 0.1 mg/dL (0.0-1.1); Blood Urea Nitrogen 13 mg/dl (7-17); Calcium 9.5 mg/dl (8.4-10.2); Carbon Dioxide 30 mmol/L (22.0-30.0); Chloride 104 mmol/L (98-107); Creatinine Clearance Estimated 39 mL/min (50-200); Estimated Glomerular Filt Rate 83 ml/min (>60); GFR (African American) 100 ML/MIN (>60); Glucose 97 mg/dl (74-100); Magnesium 1.8 mg/dl (1.6-2.3); Potassium 3.9 mmoL/L (3.5-5.1); Sodium 142 mmol/L (136-145); Total Protein,Serum 6.8 g/dl (6.3-8.2)
[2021-12-30 17:07] LABS: NT Pro Brain Natriuretic Pep. 535 pg/mL (0-125)
[2021-12-30 17:10] LABS: Troponin I < 0.01 ng/ml (0.00-0.034)
--- NOTE | 2021-12-30 17:37 | PC.NURSE ---
report given to josé mahmood
[2021-12-30 18:00] VITALS: BP 136/71; RESP 18
[2021-12-30 18:30] VITALS: BP 149/68; PULSE 62; RESP 18; O2SAT 100
[2021-12-30 19:43] LABS: Troponin I 0.02 ng/ml (0.00-0.034)
[2021-12-30 19:48] VITALS: BP 115/49; PULSE 65; O2SAT 96
[2021-12-30 20:28] VITALS: BP 106/54; PULSE 68; RESP 18; TEMP 36.6; O2SAT 97
== END 2021-12-30 20:31 | disposition home or self-care (01) ==
PROVIDERS: Emergency Provider Emergency Medicine; PCP Emergency Medicine
DX: R10.9 Unspecified abdominal pain (principal); R53.1 Weakness; R07.9 Chest pain, unspecified; R06.02 Shortness of breath; M54.2 Cervicalgia; R68.84 Jaw pain; R93.89 Abnormal findings on diagnostic imaging of other specified body structures; I10 Essential (primary) hypertension; I77.4 Celiac artery compression syndrome; I25.119 Atherosclerotic heart disease of native coronary artery with unspecified angina pectoris; I48.0 Paroxysmal atrial fibrillation; E78.5 Hyperlipidemia, unspecified; K55.059 Acute (reversible) ischemia of intestine, part and extent unspecified; Z79.51 Long term (current) use of inhaled steroids; Z79.52 Long term (current) use of systemic steroids; Z79.82 Long term (current) use of aspirin; Z79.899 Other long term (current) drug therapy; Z95.1 Presence of aortocoronary bypass graft; Z87.891 Personal history of nicotine dependence
CPT/HCPCS: 36415; 71045; 80048; 80076; 83735; 83880; 84484; 85025; 93005; 99285

== ENCOUNTER → 2022-08-10 10:46 | Outpatient (CLI) | payer MEDICARE, SELFPAY ==
--- NOTE | 2022-08-10 10:47 | CA_ITS ---
FINAL REPORT CLINICAL HISTORY: BRUIT,SMOKER,HTN FINDINGS: An ultrasound of the carotid arteries was performed. Duplex Doppler evaluation with spectral analysis was performed. The peak systolic velocity of the right common carotid artery is 91 cm/s. The peak systolic velocity of the right internal carotid artery is 125 cm/s and end diastolic velocity 32 cm/s. A small amount of plaque is present. The right external carotid artery is patent. The right vertebral artery is patent with antegrade flow. ICA/CCA ratio: 1.7 The peak systolic velocity of the left common carotid artery is 95 cm/s. The peak systolic velocity of the left internal carotid artery is 102 cm/s and end diastolic velocity 25 cm/s. A small amount of plaque is present. The left external carotid artery is patent. The left vertebral artery is patent with antegrade flow. ICA/CCA ratio: 1.3 Bilateral patent vertebral arteries with antegrade flow. IMPRESSION: Less than 50% bilateral carotid stenosis. Reviewed, Interpreted and Dictated by Venancio Lizarraga III, MD Transcribed by Matt Kang Authenticated and [facility]
== END ==
LOC: RT 10:47
PROVIDERS: PCP Nurse Practitioner Family; Visit Provider Nurse Practitioner Family
DX: R69 Illness, unspecified (principal); R09.89 Other specified symptoms and signs involving the circulatory and respiratory systems
CPT/HCPCS: 93880

== ENCOUNTER → 2022-10-13 13:04 | Outpatient (CLI) | payer MEDICARE, SELFPAY ==
--- NOTE | 2022-10-13 13:04 | MM_ITS ---
PROCEDURE INFORMATION: Exam: MG Bilateral Screening 3D Mammography Exam date and time: 10/13/2022 12:55 PM Age: 72 years old Clinical indication: Screening examination TECHNIQUE: Imaging protocol: Bilateral Screening tomosynthesis and 2D mammography including computer-aided detection (CAD) when performed. COMPARISON: 1. MG SCBI MM Dig screening mamm BI w/CAD 11/03/2017 9:09 AM 2. MG DMSB DIGITAL MAMM-SCREEN BILATERAL 02/04/2011 3:29 PM 3. MG DIGMAMMS MAMMOGRAM SCREEN-KIER HAND N/C 07/30/1997 4:02 PM FINDINGS: MAMMOGRAPHY: Breast composition: The breasts are heterogeneously dense, which may obscure small masses. Mass: No suspicious masses. Architectural distortion: No suspicious distortion. Calcifications: No suspicious calcifications. Asymmetric density: None. Skin thickening: None. Axillary adenopathy: None. IMPRESSION: No mammographic evidence of malignancy. Annual screening is recommended unless otherwise clinically indicated. ASSESSMENT: BI-RADS Category 1: Negative
== END ==
PROVIDERS: PCP Nurse Practitioner Family; Visit Provider Nurse Practitioner Family
DX: Z12.31 Encounter for screening mammogram for malignant neoplasm of breast (principal)
CPT/HCPCS: 77063; 77067

== ENCOUNTER → 2023-01-31 11:13 | Outpatient (CLI) | payer MEDICARE, SELFPAY ==
--- NOTE | 2023-01-31 11:18 | US_ITS ---
FINAL REPORT CLINICAL HISTORY: CLAUDICATION,REST PAIN,SMOKER,HLD,CAD,CABG FINDINGS: ANKLE-BRACHIAL PRESSURE INDICES Pressure indices are as follows: RIGHT LOWER EXTREMITY: Ankle-brachial pressure index: 1.10 Comments: Normal LEFT LOWER EXTREMITY: Ankle-brachial pressure index: 1.08 Comments: Normal IMPRESSION: No evidence of significant obstructive peripheral vascular disease of the lower extremities Reviewed, Interpreted and Dictated by Prnice Nava MD Transcribed by Penny Oviedo Authenticated and [facility]
== END ==
PROVIDERS: PCP Nurse Practitioner Family; Visit Provider Internal Medicine
DX: I73.9 Peripheral vascular disease, unspecified (principal)
CPT/HCPCS: 93923

== ENCOUNTER → 2023-02-09 09:01 | Outpatient (CLI) | payer MEDICARE, SELFPAY ==
--- NOTE | 2023-02-09 09:02 | XR_ITS ---
FINAL REPORT CLINICAL HISTORY: osteoporosis screening COMPARISON: None FINDINGS: Using L1-4, the bone mineral density of the spine is 0.696 g/cm2, corresponding to T-score of -3.2, consistent with osteoporosis. Using the left hip, the bone mineral density of the femoral neck is 0.588 g/cm2, corresponding to a T-score of -2.4, consistent with low bone density. Using the right hip, the bone mineral density of the femoral neck is 0.573 g/cm2, corresponding to a T-score of -2.5, consistent with osteoporosis. FRAX not reported because some T-score at or below -2.5. NOTE: T-score: Standard deviation compared with peak bone mass of young adult mean. *Following the recommendations of the International Society of Bone densitometry, classification of hip BMD is based on the lower of two T-scores; total hip or femoral neck. IMPRESSION: Diminished bone mineral density consistent with osteoporosis. Reviewed, Interpreted and Dictated by Venancio Lizarraga III, MD Transcribed by Bernie Alonzo Authenticated and [facility]
== END ==
PROVIDERS: PCP Nurse Practitioner Family; Visit Provider Internal Medicine
DX: M81.8 Other osteoporosis without current pathological fracture (principal)
CPT/HCPCS: 77080

== ENCOUNTER → 2023-02-17 13:29 | Outpatient (CLI) | payer MEDICARE, SELFPAY ==
--- NOTE | 2023-02-17 13:35 | XR_ITS ---
FINAL REPORT CLINICAL HISTORY: foot pain FINDINGS: Right foot Three views were obtained. There is mild hallux valgus deformity. There is no acute fracture or dislocation. The joint spaces appear normal. No soft tissue abnormality is identified. IMPRESSION: No acute process. Reviewed, Interpreted and Dictated by Prince Nava MD Transcribed by Lennie Healy Authenticated and . [facility]
--- NOTE | 2023-02-17 13:35 | XR_ITS ---
FINAL REPORT CLINICAL HISTORY: foot pain FINDINGS: Left foot Three views were obtained. There is no acute fracture or dislocation. The joint spaces appear normal. No soft tissue abnormality is identified. IMPRESSION: No acute process. Reviewed, Interpreted and Dictated by Prince Nava MD Transcribed by Lennie Healy Authenticated and [facility]
== END ==
PROVIDERS: PCP Internal Medicine; Visit Provider Nurse Practitioner Family
DX: M79.672 Pain in left foot (principal); M79.671 Pain in right foot
CPT/HCPCS: 73630

== ENCOUNTER → 2023-03-07 08:07 | Outpatient (CLI) | payer MEDICARE, SELFPAY ==
[2023-03-07 18:13] LABS: Coronavirus 19, PCR Not Detected (NotDetected); Influenza A, PCR Not Detected (NotDetected)
[2023-03-07 22:47] LABS: Influenza B, PCR Detected (NotDetected)
== END ==
PROVIDERS: PCP Student in an Organized Health Care Education/Training Program; Visit Provider Student in an Organized Health Care Education/Training Program
DX: M54.50 Low back pain, unspecified (principal); R68.81 Early satiety; R05.9 Cough, unspecified; J10.1 Influenza due to other identified influenza virus with other respiratory manifestations; B96.89 Other specified bacterial agents as the cause of diseases classified elsewhere
CPT/HCPCS: 87086; 87636

== ENCOUNTER 2023-03-25 08:23 | Outpatient (CLI) | payer MEDICARE, SELFPAY | END 2023-03-25 23:59 | LOC: LAB.DROPOF 03-26 08:24 | PROVIDERS: PCP Internal Medicine; Visit Provider Student in an Organized Health Care Education/Training Program | DX: N39.0 Urinary tract infection, site not specified (principal); B96.29 Other Escherichia coli [E. coli] as the cause of diseases classified elsewhere | CPT/HCPCS: 87086 ==

== ENCOUNTER 2023-05-06 19:51 | Outpatient (CLI) | payer MEDICARE, SELFPAY ==
[2023-05-06 18:29] LABS: Coronavirus 19, PCR Not Detected (NotDetected); Influenza A, PCR Not Detected (NotDetected); Influenza B, PCR Not Detected (NotDetected)
== END 2023-05-06 23:59 ==
LOC: LAB.DROPOF 19:52
PROVIDERS: PCP Student in an Organized Health Care Education/Training Program; Visit Provider Student in an Organized Health Care Education/Training Program
DX: R50.9 Fever, unspecified (principal); R06.02 Shortness of breath; R09.89 Other specified symptoms and signs involving the circulatory and respiratory systems; R06.2 Wheezing
CPT/HCPCS: 87636

== ENCOUNTER 2023-09-15 09:57 | Outpatient (CLI) | payer MEDICARE, SELFPAY | END 2023-09-15 23:59 | disposition home or self-care (01) | LOC: LAB.DROPOF 09-16 09:58 | PROVIDERS: PCP Student in an Organized Health Care Education/Training Program; Visit Provider Student in an Organized Health Care Education/Training Program | DX: R31.9 Hematuria, unspecified (principal) | CPT/HCPCS: 87086 ==

== ENCOUNTER 2023-09-28 09:09 | Outpatient (CLI) | payer MEDICARE, SELFPAY | END 2023-09-28 23:59 | disposition home or self-care (01) | LOC: LAB.DROPOF 09-29 09:18 | PROVIDERS: PCP Student in an Organized Health Care Education/Training Program; Visit Provider Nurse Practitioner Family | DX: R82.90 Unspecified abnormal findings in urine (principal) | CPT/HCPCS: 87086 ==

== ENCOUNTER 2023-10-07 09:04 | Outpatient (CLI) | payer MEDICARE, SELFPAY | END 2023-10-07 23:59 | disposition home or self-care (01) | PROVIDERS: PCP Nurse Practitioner Family; Visit Provider Family Medicine | DX: N39.0 Urinary tract infection, site not specified (principal) | CPT/HCPCS: 36415; 87086 ==

== ENCOUNTER 2023-10-17 12:37 | Outpatient (CLI) | payer MEDICARE, SELFPAY ==
[2023-10-17 13:10] LABS: Blood Urea Nitrogen 9 mg/dl (7-17); Estimated Glomerular Filt Rate 62 ml/min (>60); GFR (African American) 75 ML/MIN (>60)
[2023-10-17 15:57] LABS: Microscopic, Urine URINE MICROSCOPIC (MICROSCOPIC)
[2023-10-17 16:22] LABS: Appearance,Urine CLEAR (Clear); Bilirubin,Urine Negative (Negative); Blood, Urine 1+ (Negative); Color,Urine YELLOW (Yellow); Glucose,Urine (UA) Negative (Negative); Ketones,Urine Negative (Negative); Leukocyte Esterase,Urine Negative (Negative); Nitrate,Urine Negative (Negative); Protein,Urine Negative (Negative); Urobilinogen,Urine 0.2 EU/dl (0.2)
[2023-10-17 16:35] LABS: RBC,Urine Occasional #/hpf (0-3)
[2023-10-21 00:11] LABS: Atopobium vaginae Low - 0 Score (.); BVAB2 Low - 0 Score (.); Candida albicans NAA Negative (Negative); Candida glabrata Negative (Negative); Chlamydia Trachomatis NAA Negative (Negative); HSV 1 NAA Negative (Negative); HSV 2 NAA Negative (Negative); Megasphaera 1 Low - 0 Score (.); Neisseria gonorrhoeae NAA Negative (Negative); Trich vag NAA Negative (Negative)
== END 2023-10-17 23:59 | disposition home or self-care (01) ==
LOC: LAB 12:38
PROVIDERS: PCP Student in an Organized Health Care Education/Training Program; Visit Provider Urology
DX: R31.9 Hematuria, unspecified (principal); N39.0 Urinary tract infection, site not specified; N89.8 Other specified noninflammatory disorders of vagina
CPT/HCPCS: 36415; 81001; 82565; 84520; 87086; 87491; 87529; 87563; 87591; 87661; 87798; 87801

== ENCOUNTER 2023-11-01 08:59 | Outpatient (CLI) | payer MEDICARE, SELFPAY ==
--- NOTE | 2023-11-01 09:00 | CT_ITS ---
FINAL REPORT TECHNIQUE: Axial CT images of the abdomen and pelvis were obtained before and after the administration of IV contrast. Oral contrast was administered.This study was performed with techniques to keep radiation doses as low as reasonably achievable (ALARA). Individualized dose reduction techniques using automated exposure control or adjustment of mA and/or kV according to the patient''s size were employed. CLINICAL HISTORY: hematuria COMPARISON: 10/11/2021 FINDINGS: Abdomen: The lung bases are clear. The heart is normal in size. There is a small right hepatic lobe cyst. There is a less than 1 cm probable splenic cyst. No adrenal masses present. The pancreas has an unremarkable appearance. No renal mass is identified. There is mild bilateral renal scarring. The aorta is normal in caliber. There is no free fluid or adenopathy. Precontrast images demonstrate no evidence of nephrolithiasis. There is moderate vascular calcification. There are gallstones with mild gallbladder wall thickening. No ureteral stones are identified. Pelvis: The appendix is normal. No bladder mass or wall thickening is identified. No inflammatory process is seen. There is no evidence of mass or adenopathy. There is no evidence of bowel obstruction. There are bilateral L5 pars defects. IMPRESSION: Gallstones with mild wall thickening, cholecystitis is not excluded. If indicated, hepatobiliary scan may be helpful. Mild bilateral renal scarring. Reviewed, Interpreted and Dictated by Venancio Lizarraga III, MD Transcribed by Lennie Healy Authenticated and [facility]
[2023-11-01] MEDS: IOPAMIDOL-370 (76%);100ML BOTTLE 75 ML IV (09:40)
[2023-11-01] MEDS: SODIUM CHLORIDE 0.9% 10ML SYR (RAD ONLY) 10 ML IV (09:40)
== END 2023-11-01 23:59 | disposition home or self-care (01) ==
LOC: RAD 08:59
PROVIDERS: PCP Nurse Practitioner Family; Visit Provider Urology
DX: R31.9 Hematuria, unspecified (principal)
CPT/HCPCS: 74178; Q9967

== ENCOUNTER 2023-11-04 11:22 | Day surgery (SDC) | payer MEDICARE, SELFPAY ==
[2023-11-02 12:01] VITALS: BMI 19.8
[2023-11-04 12:03] VITALS: BP 155/89; PULSE 67; RESP 18; TEMP 36.6; O2SAT 97
--- NOTE | 2023-11-04 12:48 | HMH.PROCNOTE ---
[facility] Procedure Note Date: 11/04/23 Time: 12:49 Procedure Note:: Chart review: The patient CT scan with and without infusion on 11/11 shows mild chronic pyelonephritis and gallstones. She has been using Estrace. She found that Ditropan caused too much dry mouth. She is here for evaluation of hematuria. She also has back pain but that radiates to the legs suggesting a nonurologic cause for the pain. Preop diagnosis: Hematuria Postop diagnosis: Hematuria/urethritis Operative procedure: The patient was brought to the cystoscopy suite. She is prepped and draped in the usual fashion and a urine culture and sensitivity is pending now. She underwent flexible cystoscopy. She has moderate urethritis. The ureteral orifices are normal bilaterally with clear reflux of urine. There is no evidence of bladder stone tumor hemorrhage or infection. She tolerated the procedure well.
[2023-11-04] MEDS: LACTATED RINGERS 1000ML 1,000 ML 1000 ML IV (13:22)
[2023-11-04] MEDS: LIDOCAINE 2% UROJET 10ML 10 ML UR (13:22)
[2023-11-04 13:26] VITALS: BP 135/69; PULSE 58; RESP 18; TEMP 36.9; O2SAT 99
[2023-11-04 13:43] VITALS: BP 135/69; PULSE 58; RESP 18; O2SAT 99
[2023-11-04 14:05] LABS: Microscopic,Cath URINE MICROSCOPIC (MICROSCOPIC)
[2023-11-04 14:39] LABS: Appearance,Urine/Cath CLEAR (Clear); Bilirubin,Cath Negative (Negative); Blood, Urine/Cath 1+ (Negative); Color,Urine/Cath YELLOW (Yellow); Glucose,Urine/Cath (UA) Negative (Negative); Ketones,Urine/Cath Negative (Negative); Leukocyte Esterase,Cath Negative (Negative); Nitrate,Cath Negative (Negative); Protein,Urine/Cath Negative (Negative); Specific Gravity, Urine/Cath >= 1.030 (1.005-1.030); Urobilinogen,Cath 0.2 EU/dl (0.2)
[2023-11-04 14:57] LABS: Bacteria,Urine/Cath 1+ /lpf; Mucus,Urine/Cath 1+ /lpf; Squamous Epithelial Ur./Cath Occasional #/hpf (0-5); WBC,Urine/Cath Occasional #/hpf (0-3)
[2023-11-04 14:58] LABS: Hyaline Casts,Urine/Cath OCC #/lpf (0)
== END 2023-11-04 13:47 | disposition home or self-care (01) ==
PROVIDERS: PCP Nurse Practitioner Family; Visit Provider Urology
PROC: 0TJB8ZZ Inspection of Bladder, Via Natural or Artificial Opening Endoscopic (ICD-10-PCS; CPT 52000; principal; 2023-11-04 13:45)
DX: R31.9 Hematuria, unspecified (principal); N11.9 Chronic tubulo-interstitial nephritis, unspecified; R30.0 Dysuria; R35.1 Nocturia; N34.2 Other urethritis
CPT/HCPCS: 52000; 81001; 87086; J7120

== ENCOUNTER 2023-12-05 12:00 | Outpatient (CLI) | payer MEDICARE, SELFPAY ==
[2023-12-05 15:41] LABS: Microscopic, Urine URINE MICROSCOPIC (MICROSCOPIC)
[2023-12-05 16:01] LABS: Appearance,Urine CLEAR (Clear); Bilirubin,Urine Negative (Negative); Blood, Urine TRACE-I (Negative); Color,Urine YELLOW (Yellow); Glucose,Urine (UA) Negative (Negative); Ketones,Urine Negative (Negative); Leukocyte Esterase,Urine Negative (Negative); Nitrate,Urine Negative (Negative); Protein,Urine Negative (Negative); Specific Gravity, Urine <= 1.005 (1.005-1.030); Urobilinogen,Urine 0.2 EU/dl (0.2)
[2023-12-05 16:51] LABS: RBC,Urine Occasional #/hpf (0-3); Squamous Epithelial Cell,Urine Occasional #/hpf (0-5); WBC,Urine Occasional #/hpf (0-3)
== END 2023-12-05 23:59 | disposition home or self-care (01) ==
LOC: LAB.DROPOF 12-06 10:19
PROVIDERS: PCP Urology; Visit Provider Urology
DX: R31.9 Hematuria, unspecified (principal)
CPT/HCPCS: 81001

== ENCOUNTER 2023-12-06 09:00 | Outpatient (RCR) | payer MEDICARE, SELFPAY ==
--- NOTE | 2023-10-11 09:24 | HMH.PTOPEV ---
PT Outpatient Evaluation Rehab PT Outpatient Evaluation Start: 10/11/23 07:52 Freq: Status: Active Protocol: Document 10/11/23 07:52 KIMMIE (Rec: 10/11/23 09:24 KIMMIE [id number]) E-signed By Margie Parsons, PT Outpatient Therapy Subjective History Subjective History Pt is a 73 y/o female who reports chronic LBP with acute exacerbation ~30 days ago, denies known trauma or injury. Pt reports bilateral central low back pain that is dull in nature. Pt denies distal LE symptoms, numbness/tingling or saddle anesthesia. Pt reports she felt funny in her lower abdominal region and thought she had a UTI so that is why she went to the doctor. Pt reports she had a urine culture but did not receive results yet. Pt states she is scheduled to see a urologist on 10/17/23. Pt also reports she had an injection in her L hip on 09/28/23; however, states this did not improve her symptoms. Pt had a lumbar spine xray on 09/17/23 with impression of 1. Stable compression fracture of L1 since 2020. 2. 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 3. No acute fracture or dislocation identified. Pt also had a xray of her L hip without significant findings. Pt reports she was prescribed muscle relaxers but they just made her sleepy and feel like she was hungover so she stopped taking them.Pt reports pain is worse in the mornings and with prolonged sitting and improves some with movement. Pt reports pain is aggravated by donning her shoes/socks, getting in/out of car (ER of hip), bending, reaching high overhead, and walking fast. Pt reports she has been feeling nauseous and has been vomiting on and off since taking a prescribed antibiotic in August for a stye. Pt encouraged to contact her MD regarding this. Medical History: COPD, Osteoporosis, Rheumatoid Arthritis, HTN, HLD, CAD, PAF, Typical angina, Restless Leg Syndrome, Left carotid bruit, Bypass in 2019 New diagnosis of cancer in past 12 No months? Chief Complaint Pain,Stiff Symptom Type Ache,Dull Symptoms Relieved By Heat,OTC Meds,Activity Symptoms Aggravated By Sitting,Standing,Bending/ Stooping,Physical Activity, Lifting Current Functional Limitations Reaching,Lifting,Housework, Dressing,Sleeping,Standing, Sitting,Squatting,Walking, Bending/Stooping Symptom Description Constant but Variable Level of pain today (0-10) 5 Pain scale - at its best (0-10) 3 Pain scale - at its worst (0-10) 8 Lumbopelvic Eval Posture Thoracic Spine Posture Standing Position Neutral Lumbar Spine Posture Standing Position Increased Lordosis Palapation tenderness bilateral lumbar spinal tenderness Yes buttock tenderness Yes: piriformis Lumbar/Sacral Palpation Findings Tenderness Lumbar/Sacral Palpation Overall Comment 2-3/4 TTP Accessory Movement L-spine Vertebrae Accessory Movements Central P/A [place] that Elicit Symptoms L2 bilateral L3 bilateral L4 bilateral L5 bilateral Range of Motion Lumbar Spine Active Flexion Range of 65 Motion (degrees) Lumbar Spine Active Extension Range of 15 Motion (degrees) Left Lumbar Spine Lateral Flexion Active 5 Range of Motion (degrees) Right Lumbar Spine Lateral Flexion 5 Active Range of Motion (degrees) Manual Muscle Test Bilateral Knee Extension Strength Grade 5 Normal Knee Flexion Strength Grade 5 Normal Hip Flexion Strength Grade 4- Good- Hip Abduction Strength Grade 4- Good- Hip Adduction Strength Grade 4- Good- Hip Extension Strength Grade 4- Good- Ankle Dorsiflexion Strength Grade 5 Normal DTR Rt Patellar 2+ Lt Patellar 2+ Rt Gastroc/Soleus 2+ Lt Gastroc/Soleus 2+ Altered Sensation Bilateral Comment equal and intact to light touch sensation bilaterally Special Tests Hip Scouring (Quadrant) Test Positive Left,Positive Right Hip Cem (MATTY) Test Positive Left,Positive Right Sciatic Nerve Tension Test Negative Left,Negative Right Unilateral Straight Leg Raise (Lasegue) Negative Left,Negative Right Test David Test Positive Sacroiliac Joint Compression Test Negative Left,Negative Right Sacroiliac Joint Distraction Test Negative Left,Negative Right Oswestry Index Section 1 Pain Intensity The pain comes and goes and is moderate Section 2 Personal Care (Washing,Dresing) increase the pain, but I manage not to change my way of doing it Section 3 Lifting I can only lift very light weights at most Section 4 Walking I have some pain when walking but it does not increase with distance Section 5 Sitting I avoid sitting because it increases my pain immediately Section 6 Standing I have some pain on standing, but it does not increase with time Section 7 Sleeping Because of my pain, my normal night's sleep is less than 4 hours Section 8 Social Life Pain has restricted my social life and I do not go out often Section 9 Traveling I get some pain when traveling , but none of my usual forms of travel m Section 10 Changing Degreee of Pain My pain seems to be getting better, but improvement is slow Score and Risk Level Oswestry Sc 25 Oswestry Risk Level Severe Disability Outpatient Therapy Assessment Impairments Problems/Impairmments Palpation Tenderness,Impaired Range of Motion,Impaired Strength,Impaired Walking, Impaired Standing,Impaired Sitting,Impaired Lifting, Impaired Household Care, Impaired Squatting,Impaired Bending,Subjective C/O Pain, Impaired Self Care/Self Management Prognosis Rehab Potential Good Comment Barriers to progress include chronic pain and multiple comorbidities Clinical Impression Consistent with Diagnosis Yes Short Term Goals Number of Weeks 3 Increase Range of Motion Yes: Improve lumbar AROM flex to at least 75 Improve Ability to Dress Self Yes: report ability to don shoes/socks with pain 4/10 or less Decrease Subjective C/O Pain Yes: Improve pain at worst to 6/10 to improve overall QOL Improve Self Care/Self Management Yes Patient to be Ind w/ HEP Yes Group Home Goals Number of Weeks 6 Increase Range of Motion Yes: Improve lumbar AROM flex to at least 80-90, ext to 20, LF to 10-15 Increase Strength Yes: Improve B hip strength to 4+/5 grossly to assist with function Improve Oswestry Score Yes: Improve score to 20 or less to improve overall QOL Decrease Subjective C/O Pain Yes: Improve pain at worst to 4/10 to improve overall QOL Outpatient Therapy Plan of Care Treatment Plan May Include Therapeutic Exercise Including Home Yes Exercise Program Manual Therapy Techniques Yes Neuromuscular Re-education Yes Therapeutic Activities to Return to Yes Previous Functional/Work Level ADL/Self Care Education Yes Mechanical Traction Yes Dry Needling Yes Thermal Modalities Yes Electrical Stimulation Yes Ultrasound/Phonophoresis Yes Iontophoresis Yes Massage Yes Group Therapy for Medicare Yes Eval/Re-Eval Yes Frequency Times per week 2 Duration Number of Weeks 4-6 Addendums This patient is a candidate for social No or vocational rehab? Patient/Guardian verbally acknowledges Yes understanding of treatment program and consents to further treatment? Patient/Guardian verbally acknowledges Yes understanding of diagnosis, prognosis and goals for treatment? Eval Complexity PT Charges 71957 - Moderate Complexity Shoulder/Elbow Eval Shoulder Objective Measurements Elbow Objective Measurements PHYSICIAN CERTIFICATION: I certify the specified therapy services for Jacque Domingo Green are required, authorized, and reviewed every 30 days.
--- NOTE | 2023-11-07 10:44 | HMH.RHREAS ---
Rehab Reassessment Rehab OP Re-assessment Start: 10/11/23 07:52 Freq: Status: Active Protocol: Document 11/07/23 09:05 KIMMIE (Rec: 11/07/23 10:44 KIMMIE [id number]) E-signed By Margie Parsons PT Oswestry Index Section 1 Pain Intensity The pain comes and goes and is moderate Section 2 Personal Care (Washing,Dresing) my way of washing or dressing even though it causes some pain Section 3 Lifting I can only lift very light weights at most Section 4 Walking I have some pain when walking but it does not increase with distance Section 5 Sitting Pain prevents me from sitting for more than one hour Section 6 Standing I have some pain on standing, but it does not increase with time Section 7 Sleeping Because of my pain, my normal night's sleep is less than 6 hours sleep Section 8 Social Life Pain has restricted my social life and I do not go out often Section 9 Traveling I get extra pain while traveling, but it does not compel me to seek al Section 10 Changing Degreee of Pain My pain seems to be getting better, but improvement is slow Score and Risk Level Oswestry Sc 21 Oswestry Risk Level Moderate Disability Rehab Re-assessment Subjective Subjective Pt reports she had a procedure Tuesday due to frequent urinary tract infections. Per chart, pt underwent flexible cytoscopy and tolerated the procedure well without significant findings. Pt reports her back feels 60% improved since starting PT. Pt reports continued L>R central low back pain rated 4/10 at worst on VAS described as a dull ache. Pt reports pain is aggravated by bending, lifting and prolonged activity/ inactivity. Pt also reports intermittent brief sharp shooting pains up the left side of the mid back. Pt also reports intermittent pain in bilateral groin regions, denies other distal symptoms or numbness/tingling. Pt reports she has been too busy at home to perform her HEP. Objective Objective Notes Palpation: 2/4 TTP L thoracolumbar paraspinals, L2- L5 SP Lumbar AROM: 70 flex, 20 ext, 10 BLF Assessment Progress Assessment Progressing as Expected Assessment Notes Pt has attended 6 PT sessions consisting of lumbar mobility, LE stretching/strengthening, core strengthening, and modalities with good tolerance . Pt demonstrated improved KAMILAH score, subjective report of pain, and lumbar AROM this date compared to the initial evaluation. Pt continues to demonstrate lumbar AROM deficits and reports pain with bending and lifting activities. Pt reported non- compliance with HEP and was educated on importance of compliance to assist with progress. Overall, the pt would continue to benefit from skilled PT to further improve subjective report of pain, lumbar AROM, LE/core strength, and functional activity tolerance to improve overall QOL. Patient goals met ST/5 Goals Not Met lumbar AROM, HEP compliance, LTG Revised Goals n/a Plan Plan Continue initial POC Frequency of Therapy 2x/week Duration of therapy 2-4 more weeks Time and Billing Re-Eval Time 15 Re-Eval Billing Units 1 PHYSICIAN CERTIFICATION: I certify the specified therapy services for Jacque Worley are required, authorized, and reviewed every 30 days.
== END 2023-12-06 09:05 | disposition home or self-care (01) ==
LOC: PT 09:00
PROVIDERS: Visit Provider Nurse Practitioner Family
DX: M54.16 Radiculopathy, lumbar region (principal); M54.50 Low back pain, unspecified; G89.29 Other chronic pain
CPT/HCPCS: 97014; 97110; 97163; 97164; G0283

== ENCOUNTER 2024-03-06 13:02 | Outpatient (CLI) | payer MEDICARE, SELFPAY ==
[2024-03-06 11:06] LABS: Microscopic, Urine URINE MICROSCOPIC (MICROSCOPIC)
[2024-03-06 11:18] LABS: Appearance,Urine CLEAR (Clear); Bilirubin,Urine Negative (Negative); Blood, Urine Negative (Negative); Color,Urine YELLOW (Yellow); Glucose,Urine (UA) Negative (Negative); Ketones,Urine Negative (Negative); Leukocyte Esterase,Urine Negative (Negative); Nitrate,Urine Negative (Negative); Protein,Urine Negative (Negative); Specific Gravity, Urine >= 1.030 (1.005-1.030); Urobilinogen,Urine 0.2 EU/dl (0.2)
[2024-03-06 13:34] LABS: Bacteria,Urine Trace /lpf; Squamous Epithelial Cell,Urine Occasional #/hpf (0-5); WBC,Urine Occasional #/hpf (0-3)
== END 2024-03-06 23:59 | disposition home or self-care (01) ==
LOC: LAB.DROPOF 13:02
PROVIDERS: PCP Urology; Visit Provider Urology
DX: R31.9 Hematuria, unspecified (principal)
CPT/HCPCS: 81001

== ENCOUNTER 2024-04-07 17:36 | Emergency (ER) | payer MEDICARE, SELFPAY ==
[2024-04-07 18:05] VITALS: BP 140/71; PULSE 101; RESP 22; TEMP 37.2; O2SAT 96; BMI 19.6
[2024-04-07 18:14] LABS: Apearance,Urine Turbid (Clear); Color,Urine Dark Yellow (Yellow); Glucose,Urine (UA) Negative (Negative); Ketones,Urine 1+ (Negative); PH,Urine 5.5 (5.0-8.5); Protein,Urine 1+ (Negative)
[2024-04-07 18:15] LABS: Bilirubin,Urine 2+ (Negative); Blood, Urine 1+ (Negative); UTC Leukocyte Esterase,Urine 1+ (Negative); UTC Nitrate,Urine Negative (Negative); Urobilinogen,Urine 2 EU/dl (0.2)
[2024-04-07 18:29] LABS: UTC Influenza A Antigen Negative (Negative); UTC Influenza B Antigen Negative (Negative)
--- NOTE | 2024-04-07 18:51 | EXP.UTC ---
Discharge Plan Disposition Patient Disposition: Home, Self-Care Condition: Good Prescriptions Prescriptions: New cefdinir 300 mg capsule 300 mg PO Q12H 10 Days Qty: 20 0RF No Action (DME) Aerochamber MV Spacer See Rx Instructions .Route Qty: 1 0RF Rx Instructions: As directed Xeljanz 5 mg tablet 5 mg PO DAILY estradiol 0.01 % (0.1 mg/gram) cream See Rx Instructions vaginal .COMPLEX Qty: 42.5 2RF Rx Instructions: Using finger technique daily for two weeks and then twice weekly vaginally; oxybutynin chloride 10 mg tablet extended release 24hr 10 mg PO DAILY Qty: 90 3RF ondansetron HCl 4 mg tablet 4 mg PO Q8H PRN (Reason: nausea and vomiting) Qty: 30 0RF [id number] [Bromfed DM] 2-30-10 mg/5 mL syrup 10 ml PO Q6H PRN (Reason: cold symptoms) Qty: 118 0RF fluticasone propionate [Flonase Allergy Relief] 50 mcg/actuation spray,suspension 1 spray intranasal DAILY PRN (Reason: allergy symptoms) Qty: 16 0RF Rx Instructions: administer into each nostril aspirin [Adult Low Dose Aspirin] 81 mg tablet,delayed release (DR/EC) 81 mg PO DAILY fluticasone furoate-vilanterol [Breo Ellipta] 100-25 mcg/dose blister with device 1 inh INHALATION DAILY Qty: 60 12RF albuterol sulfate 90 mcg/actuation HFA aerosol inhaler 2 puff INHALATION Q4-6H PRN (Reason: shortness of breath or wheezing) Qty: 8.5 5RF pramipexole 0.125 mg tablet See Rx Instructions .ROUTE .COMPLEX Qty: 90 3RF Dose Instruction: TAKE 1 TABLET BY MOUTH NIGHTLY FOR RESTLESS LEGS Rx Instructions: TAKE 1 TABLET BY MOUTH NIGHTLY FOR RESTLESS LEGS alendronate [Fosamax] 70 mg tablet See Rx Instructions .ROUTE .COMPLEX Qty: 14 3RF Rx Instructions: TAKE 1 TABLET BY MOUTH EVERY WEEK ON SAME DAY EACH WEEK metoprolol tartrate 25 mg tablet See Rx Instructions .ROUTE .COMPLEX Qty: 60 2RF Dose Instruction: TAKE 1/2 TABLET BY MOUTH TWICE DAILY Rx Instructions: TAKE 1/2 TABLET BY MOUTH TWICE DAILY atorvastatin 20 mg tablet See Rx Instructions .ROUTE .COMPLEX Qty: 90 3RF Dose Instruction: TAKE 1 TABLET BY MOUTH DAILY FOR CHOLESTEROL Rx Instructions: TAKE 1 TABLET BY MOUTH DAILY FOR CHOLESTEROL hydroxychloroquine [Plaquenil] 200 mg tablet 200 mg PO DAILY Rx Instructions: TAKE 1 TABLET BY MOUTH EVERY DAY FOR LUNGS Referrals Follow up/Referrals: Ladonna Iqbal APRN [Primary Care Provider] - See instructions Activity Restrictions/Add. Instructions Additional Instructions/Restrictions: Take medication as prescribed. Increase fluids and rest. Follow up with PCP. Clinical Impressions Clinical Impression: Acute lower respiratory infection UTI (urinary tract infection) Qualifiers: Urinary tract infection type: acute cystitis Hematuria presence: with hematuria Qualified Code(s): N30.01 - Acute cystitis with hematuria Instructions Patient Instructions: DI for Urinary Tract Infection (UTI), Acute Bronchitis Print Language Print Language: [place] Discharge ED Provider: Kristina Ascencio [facility] [place] HPI General Stated complaint: Nausea,poor appitite,body aches,cough,SORIA,? UTI Mode of Arrival: Ambulatory Source of Information: Patient Limitations: No Limitations Time Seen by Provider: 04/07/24 18:50 Description of Symptoms (Recalled from Triage Doc. by RN): PATIENT C/O NAUSEA, POOR APPETITE, DARK URINE, COUGH, CONGESTION, SINUS PAIN, DIFFICULTY SLEEPING, AND SOME CONFUSION THAT STARTED A COUPLE OF WEEKS AGO HEENT Symptoms (Recalled from RN notes): Yes Resp Symptoms (Recalled from RN notes): No Skin Symptoms (Recalled from RN notes): No MS Symptoms (Recalled from RN notes): No Functional Status (Recalled from RN notes): WNL History of Present Illness Provider Complaint: PATIENT C/O NAUSEA, POOR APPETITE, DARK URINE, COUGH, CONGESTION, SINUS PAIN, DIFFICULTY SLEEPING, AND SOME CONFUSION THAT STARTED A COUPLE OF WEEKS AGO Related Data Home Medications ?Medication ?Instructions ?Recorded ?Confirmed aspirin 81 mg tablet,delayed 81 mg PO DAILY heart 09/03/19 03/29/24 release (Adult Low Dose Aspirin) tofacitinib 5 mg tablet (Xeljanz) 5 mg PO DAILY 01/19/23 03/29/24 hydroxychloroquine 200 mg tablet 200 mg PO DAILY 11/04/23 03/29/24 (Plaquenil) Previous Rx's ?Medication ?Instructions ?Recorded inhalational spacing device #1 ea 10/02/20 (Aerochamber MV spacer) atorvastatin 20 mg tablet See Rx Instructions .Route 10/28/23 .COMPLEX #90 tabs metoprolol tartrate 25 mg tablet See Rx Instructions .Route 10/28/23 .COMPLEX #60 tabs albuterol sulfate 90 mcg/actuation 2 puff inhalation Q4-6H PRN 02/28/24 aerosol inhaler shortness of breath or wheezing #8.5 grams alendronate 70 mg tablet (Fosamax) See Rx Instructions .Route 02/28/24 .COMPLEX #14 tabs fluticasone furoate 100 1 inh inhalation DAILY #60 ea 02/28/24 mcg-vilanterol 25 mcg/dose inhalation powder (Breo Ellipta) pramipexole 0.125 mg tablet See Rx Instructions .Route 02/28/24 .COMPLEX restless leg(s) #90 tabs estradiol 0.01% (0.1 mg/gram) See Rx Instructions vaginal 03/05/24 vaginal cream .COMPLEX #42.5 grams oxybutynin chloride 10 mg 10 mg PO DAILY #90 tabs 03/05/24 tablet,extended release 24 hr [id number]-uflrxfpjgjqbgra-FZ 10 ml PO Q6H PRN cold symptoms 03/29/24 2 mg-30 mg-10 mg/5 mL oral syrup #118 mL (Bromfed DM) fluticasone propionate 50 1 spray intranasal DAILY PRN 03/29/24 mcg/actuation nasal allergy symptoms #16 grams spray,suspension (Flonase Allergy Relief) ondansetron HCl 4 mg tablet 4 mg PO Q8H PRN nausea and 03/29/24 vomiting #30 tabs cefdinir 300 mg capsule 300 mg PO Q12H 10 days #20 caps 04/07/24 Allergies Allergy/AdvReac Type Severity Reaction Status Date / Time acetaminophen Allergy Unknown Verified 03/05/24 10:05 naproxen AdvReac Intermediate Verified 03/05/24 10:05 doxycycline Allergy Intermediate rash Uncoded 03/05/24 10:05 Worker's Comp Is this a Worker's Comp case?: No [facility] Disclaimer: The information contained in this section may have been updated after the patient was seen, as this information can be updated by other users. Medical History COPD (chronic obstructive pulmonary disease) Tobacco abuse counseling Osteoporosis Jacque clearly has osteoporosis. She is on alendronate. Apparently she is seeing a hospital manager at [facility]. We will try to get those records to see what labs have been done etc. She states I never seen the same doctor . I offered her another option for rheumatology and she said she would tell us if she decides to take that option. She is on vitamin D3 supplementation but is not taking any calcium per day. Onychomycosis Have referred her to a social sciences lecturer for evaluation and treatment of both the onychomycosis and her for vascular disease and potential neuropathy from this. Claudication I think the pain in Jacque's legs and feet is peripheral vascular disease. I have ordered a lower extremity Doppler to evaluate arterial competency. My guess is she has this issue. I discussed with her at length that she just should not go around barefoot at home. Needs to watch her feet for sores no different than a diabetic. 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 Left carotid bruit I did appreciate this carotid bruit today. Apparently she has had bilateral arterial Dopplers done and shown 50% narrowing. She states she is going to see Dr. Moncada and his team in the very near future. I have asked her to bring this up with them. She states she was never given the results from her carotid Dopplers. 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 Chest pain Mesenteric artery stenosis Mesenteric ischemia Abdominal pain Early satiety HTN (hypertension) HLD (hyperlipidemia) Family history of heart disease CAD (coronary artery disease) Celiac artery stenosis Abnormal computed tomography angiography (CTA) Typical angina Dyspnea RLS (restless legs syndrome) Mastalgia in female Surgical History History of coronary artery bypass graft 12/25/2019- CABG x 1 AGUILAR to LAD Family History Other Colitis Crohn's disease Social History Smoking Status: Former smoker tobacco type: cigarettes packs per day: 1 alcohol intake: never substance use type: denies use current occupational status: unemployed Travel in the last 8 weeks: None household members: spouse housing: house caffeine: Yes Have you lived/traveled outside [place] in past 30 days?: No Contact w/someone who lives/traveled outside [place] past 30 days?: No Exposure to someone with infectious disease in past 14 days?: Yes Do you have a fever (greater than 100.4 F or 38 C)?: No Have you tested positive for COVID-19: No Exposed to someone with COVID-19 in past 14 days?: No Do you have a sore throat?: No Do you have a cough?: Yes Do you have any weakness?: Yes Do you have any diarrhea?: No Are you experiencing any unusual bleeding?: No Do you have any muscle aches/pain?: Yes Do you have any abdominal pain?: No Are you experiencing loss of taste or smell?: No ROS Obtained: Yes All systems reviewed & no additional complaints except as documented Constitutional Constitutional: Reports system reviewed and no additional complaints, except as documented, Reports poor appetite and Reports malaise Eyes Eyes: Reports system reviewed and no additional complaints, except as documented ENT Ears, Nose, Mouth, and Throat: Reports system reviewed and no additional complaints, except as documented and Reports nasal discharge Cardiovascular Cardiovascular: Reports system reviewed and no additional complaints, except as documented Respiratory Respiratory: Reports system reviewed and no additional complaints, except as documented, Reports chest congestion, Reports cough and Reports pain with cough Gastrointestinal Gastrointestingal: Reports system reviewed and no additional complaints, except as documented Genitourinary Female Genitourinary: Reports system reviewed and no additional complaints, except as documented, Reports urinary frequency and Reports urinary urgency Musculoskeletal Musculoskeletal: Reports system reviewed and no additional complaints, except as documented Integumentary/Breasts Skin/Breast: Reports system reviewed and no additional complaints, except as documented Neurologic Neurologic: Reports system reviewed and no additional complaints, except as documented Endocrine Endocrine: Reports system reviewed and no additional complaints, except as documented Hematologic/Lymphatic Henatologic/Lymphatic: Reports system reviewed and no additional complaints, except as documented Allergic/Immunologic Allergic/Immunologic: Reports system reviewed and no additional complaints, except as documented Physical Exam General General appearance: alert and in no apparent distress Head Head exam: atraumatic and normocephalic Eye Eye exam: Present normal appearance Expanded ENT Exam External ear exam: Present normal external inspection Nose exam: Absent sinus tenderness Nasal speculum exam: Bilateral: normal Mouth exam: Present normal external inspection Teeth exam: Present normal inspection Throat exam: Present normal inspection Neck Neck exam: Present normal inspection Chest Chest inspection: Present symmetric chest wall rise and tenderness (left side. ) Respiratory Respiratory exam: Present other Expanded Respiratory Exam Location: Left: rhonchi, Upper: rhonchi and Lower: rhonchi Cardiovascular Cardiovascular exam: Present regular rate and normal rhythm Abdominal Exam Abdominal exam: Present soft Extremities Exam Extremities exam: Present normal inspection Back Exam Back exam: Present normal inspection Neurological Exam Neurological exam: Present alert and oriented X3 Psychiatric Psychiatric exam: Present normal affect and normal mood Skin Skin exam: Present warm, dry and intact Lymphatic Lymphatic Findings: no adenopathy Medical Decision Making Medical Records Screening: Per USPSTF and CDC recommendations, given the prevalence of disease in our region, it is our hospital?s policy to screen for HIV and viral Hepatitis for all patients aged 18 and over and those with ongoing risk factors. Dread Inquiry Pt receiving controlled substance: No Dread was queried for this patient: No Vital Signs: 04/07/24 18:05 Temperature 99.0 F Temperature Source Oral Pulse Rate [Left Brachial] 101 H Respiratory Rate 22 Blood Pressure [Left Arm] 140/71 Blood Pressure Mean [Left Arm] 94 Blood Pressure Source [Left Arm] Automatic Cuff Blood Pressure Position [Left Arm] Sitting 02 Sat by Pulse Oximetry 96 Oxygen Delivery Method Room Air Lab Data Lab results reviewed: Yes I reviewed the patient's lab results. Lab Results 04/07/24 17:57: Urine Color Dark yellow, Urine Appearance Turbid, Urine pH 5.5, Ur Specific [place] 1.030, Urine Protein 1+, Urine Glucose (UA) Negative, Urine Ketones 1+, Urine Blood 1+, Urine Nitrate Negative, Urine Bilirubin 2+ A, Urine Urobilinogen 2, Ur Leukocyte Esterase 1+ A 04/07/24 18:08: Influenza Type A Ag Negative, Influenza Type B Ag Negative Orders (Tests/Meds): ORDERS Category Date Time Status Urine Culture Stat Micro 04/07/24 17:56 Received
[2024-04-07 19:06] VITALS: BP 140/71; PULSE 101; RESP 22; TEMP 37.2; O2SAT 96
--- NOTE | 2024-04-07 19:12 | ED_ITS ---
Discharge Plan Disposition Patient Disposition: Home, Self-Care Condition: Good Prescriptions Prescriptions: New cefdinir 300 mg capsule 300 mg PO Q12H 10 Days Qty: 20 0RF No Action (DME) Aerochamber MV Spacer See Rx Instructions .Route Qty: 1 0RF Rx Instructions: As directed Xeljanz 5 mg tablet 5 mg PO DAILY estradiol 0.01 % (0.1 mg/gram) cream See Rx Instructions vaginal .COMPLEX Qty: 42.5 2RF Rx Instructions: Using finger technique daily for two weeks and then twice weekly vaginally; oxybutynin chloride 10 mg tablet extended release 24hr 10 mg PO DAILY Qty: 90 3RF ondansetron HCl 4 mg tablet 4 mg PO Q8H PRN (Reason: nausea and vomiting) Qty: 30 0RF [id number]-[id number]-[id number] [Bromfed DM] 2-30-10 mg/5 mL syrup 10 ml PO Q6H PRN (Reason: cold symptoms) Qty: 118 0RF fluticasone propionate [Flonase Allergy Relief] 50 mcg/actuation spray,suspension 1 spray intranasal DAILY PRN (Reason: allergy symptoms) Qty: 16 0RF Rx Instructions: administer into each nostril aspirin [Adult Low Dose Aspirin] 81 mg tablet,delayed release (DR/EC) 81 mg PO DAILY fluticasone furoate-vilanterol [Breo Ellipta] 100-25 mcg/dose blister with device 1 inh INHALATION DAILY Qty: 60 12RF albuterol sulfate 90 mcg/actuation HFA aerosol inhaler 2 puff INHALATION Q4-6H PRN (Reason: shortness of breath or wheezing) Qty: 8.5 5RF pramipexole 0.125 mg tablet See Rx Instructions .ROUTE .COMPLEX Qty: 90 3RF Dose Instruction: TAKE 1 TABLET BY MOUTH NIGHTLY FOR RESTLESS LEGS Rx Instructions: TAKE 1 TABLET BY MOUTH NIGHTLY FOR RESTLESS LEGS alendronate [Fosamax] 70 mg tablet See Rx Instructions .ROUTE .COMPLEX Qty: 14 3RF Rx Instructions: TAKE 1 TABLET BY MOUTH EVERY WEEK ON SAME DAY EACH WEEK metoprolol tartrate 25 mg tablet See Rx Instructions .ROUTE .COMPLEX Qty: 60 2RF Dose Instruction: TAKE 1/2 TABLET BY MOUTH TWICE DAILY Rx Instructions: TAKE 1/2 TABLET BY MOUTH TWICE DAILY atorvastatin 20 mg tablet See Rx Instructions .ROUTE .COMPLEX Qty: 90 3RF Dose Instruction: TAKE 1 TABLET BY MOUTH DAILY FOR CHOLESTEROL Rx Instructions: TAKE 1 TABLET BY MOUTH DAILY FOR CHOLESTEROL hydroxychloroquine [Plaquenil] 200 mg tablet 200 mg PO DAILY Rx Instructions: TAKE 1 TABLET BY MOUTH EVERY DAY FOR LUNGS Referrals Follow up/Referrals: Ladonna Iqbal APRN [Primary Care Provider] - See instructions Activity Restrictions/Add. Instructions Additional Instructions/Restrictions: Take medication as prescribed. Increase fluids and rest. Follow up with PCP. Clinical Impressions Clinical Impression: Acute lower respiratory infection UTI (urinary tract infection) Qualifiers: Urinary tract infection type: acute cystitis Hematuria presence: with hematuria Qualified Code(s): N30.01 - Acute cystitis with hematuria Instructions Patient Instructions: Acute Bronchitis, DI for Urinary Tract Infection (UTI) Print Language Print Language: Serbian Discharge ED Provider: Kristina Ascencio [facility] [place], [place] HPI General Stated complaint: Nausea,poor appitite,body aches,cough,SORIA,? UTI Mode of Arrival: Ambulatory Source of Information: Patient Limitations: No Limitations Time Seen by Provider: 04/07/24 18:50 Description of Symptoms (Recalled from Triage Doc. by RN): PATIENT C/O NAUSEA, POOR APPETITE, DARK URINE, COUGH, CONGESTION, SINUS PAIN, DIFFICULTY SLEEPING, AND SOME CONFUSION THAT STARTED A COUPLE OF WEEKS AGO HEENT Symptoms (Recalled from RN notes): Yes Resp Symptoms (Recalled from RN notes): No Skin Symptoms (Recalled from RN notes): No MS Symptoms (Recalled from RN notes): No Functional Status (Recalled from RN notes): WNL Related Data Home Medications ?Medication ?Instructions ?Recorded ?Confirmed aspirin 81 mg tablet,delayed 81 mg PO DAILY heart 09/03/19 03/29/24 release (Adult Low Dose Aspirin) tofacitinib 5 mg tablet (Xeljanz) 5 mg PO DAILY 01/19/23 03/29/24 hydroxychloroquine 200 mg tablet 200 mg PO DAILY 11/04/23 03/29/24 (Plaquenil) Previous Rx's ?Medication ?Instructions ?Recorded inhalational spacing device #1 ea 10/02/20 (Aerochamber MV spacer) atorvastatin 20 mg tablet See Rx Instructions .Route 10/28/23 .COMPLEX #90 tabs metoprolol tartrate 25 mg tablet See Rx Instructions .Route 10/28/23 .COMPLEX #60 tabs albuterol sulfate 90 mcg/actuation 2 puff inhalation Q4-6H PRN 02/28/24 aerosol inhaler shortness of breath or wheezing #8.5 grams alendronate 70 mg tablet (Fosamax) See Rx Instructions .Route 02/28/24 .COMPLEX #14 tabs fluticasone furoate 100 1 inh inhalation DAILY #60 ea 02/28/24 mcg-vilanterol 25 mcg/dose inhalation powder (Breo Ellipta) pramipexole 0.125 mg tablet See Rx Instructions .Route 02/28/24 .COMPLEX restless leg(s) #90 tabs estradiol 0.01% (0.1 mg/gram) See Rx Instructions vaginal 03/05/24 vaginal cream .COMPLEX #42.5 grams oxybutynin chloride 10 mg 10 mg PO DAILY #90 tabs 03/05/24 tablet,extended release 24 hr [id number]-updmwnrptdjfoso-TX 10 ml PO Q6H PRN cold symptoms 03/29/24 2 mg-30 mg-10 mg/5 mL oral syrup #118 mL (Bromfed DM) fluticasone propionate 50 1 spray intranasal DAILY PRN 03/29/24 mcg/actuation nasal allergy symptoms #16 grams spray,suspension (Flonase Allergy Relief) ondansetron HCl 4 mg tablet 4 mg PO Q8H PRN nausea and 03/29/24 vomiting #30 tabs cefdinir 300 mg capsule 300 mg PO Q12H 10 days #20 caps 04/07/24 Allergies Allergy/AdvReac Type Severity Reaction Status Date / Time acetaminophen Allergy Unknown Verified 03/05/24 10:05 naproxen AdvReac Intermediate Verified 03/05/24 10:05 doxycycline Allergy Intermediate rash Uncoded 03/05/24 10:05 Worker's Comp Is this a Worker's Comp case?: No [facility] Disclaimer: The information contained in this section may have been updated after the patient was seen, as this information can be updated by other users. Medical History COPD (chronic obstructive pulmonary disease) Tobacco abuse counseling Osteoporosis Jacque clearly has osteoporosis. She is on alendronate. Apparently she is seeing a board stacker at [facility]. We will try to get those records to see what labs have been done etc. She states I never seen the same doctor . I offered her another option for rheumatology and she said she would tell us if she decides to take that option. She is on vitamin D3 supplementation but is not taking any calcium per day. Onychomycosis Have referred her to a talent acquisition sourcer for evaluation and treatment of both the onychomycosis and her for vascular disease and potential neuropathy from this. Claudication I think the pain in Jacque's legs and feet is peripheral vascular disease. I have ordered a lower extremity Doppler to evaluate arterial competency. My guess is she has this issue. I discussed with her at length that she just should not go around barefoot at home. Needs to watch her feet for sores no different than a diabetic. 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 Left carotid bruit I did appreciate this carotid bruit today. Apparently she has had bilateral arterial Dopplers done and shown 50% narrowing. She states she is going to see Dr. Moncada and his team in the very near future. I have asked her to bring this up with them. She states she was never given the results from her carotid Dopplers. 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 Chest pain Mesenteric artery stenosis Mesenteric ischemia Abdominal pain Early satiety HTN (hypertension) HLD (hyperlipidemia) Family history of heart disease CAD (coronary artery disease) Celiac artery stenosis Abnormal computed tomography angiography (CTA) Typical angina Dyspnea RLS (restless legs syndrome) Mastalgia in female Surgical History History of coronary artery bypass graft 12/25/2019- CABG x 1 AGUILAR to LAD Family History Other Colitis Crohn's disease Social History Smoking Status: Former smoker tobacco type: cigarettes packs per day: 1 alcohol intake: never substance use type: denies use current occupational status: unemployed Travel in the last 8 weeks: None household members: spouse housing: house caffeine: Yes Have you lived/traveled outside [place] in past 30 days?: No Contact w/someone who lives/traveled outside [place] past 30 days?: No Exposure to someone with infectious disease in past 14 days?: Yes Do you have a fever (greater than 100.4 F or 38 C)?: No Have you tested positive for COVID-19: No Exposed to someone with COVID-19 in past 14 days?: No Do you have a sore throat?: No Do you have a cough?: Yes Do you have any weakness?: Yes Do you have any diarrhea?: No Are you experiencing any unusual bleeding?: No Do you have any muscle aches/pain?: Yes Do you have any abdominal pain?: No Are you experiencing loss of taste or smell?: No ROS Obtained: Yes All systems reviewed & no additional complaints except as documented Constitutional Constitutional: Reports system reviewed and no additional complaints, except as documented, Reports fever(s), Reports poor appetite and Reports malaise Eyes Eyes: Reports system reviewed and no additional complaints, except as documented ENT Ears, Nose, Mouth, and Throat: Reports system reviewed and no additional complaints, except as documented and Reports nasal discharge Cardiovascular Cardiovascular: Reports system reviewed and no additional complaints, except as documented Respiratory Respiratory: Reports system reviewed and no additional complaints, except as documented, Reports cough and Reports pain with cough Gastrointestinal Gastrointestingal: Reports system reviewed and no additional complaints, except as documented Genitourinary Female Genitourinary: Reports system reviewed and no additional complaints, except as documented, Reports urinary frequency and Reports urinary urgency Musculoskeletal Musculoskeletal: Reports system reviewed and no additional complaints, except as documented Integumentary/Breasts Skin/Breast: Reports system reviewed and no additional complaints, except as documented Neurologic Neurologic: Reports system reviewed and no additional complaints, except as documented Endocrine Endocrine: Reports system reviewed and no additional complaints, except as documented Hematologic/Lymphatic Henatologic/Lymphatic: Reports system reviewed and no additional complaints, except as documented Allergic/Immunologic Allergic/Immunologic: Reports system reviewed and no additional complaints, except as documented Physical Exam General General appearance: alert and in no apparent distress Head Head exam: atraumatic and normocephalic Eye Eye exam: Present normal appearance Expanded ENT Exam External ear exam: Present normal external inspection Nose exam: Absent sinus tenderness Nasal speculum exam: Bilateral: normal Mouth exam: Present normal external inspection Teeth exam: Present normal inspection Throat exam: Present normal inspection Neck Neck exam: Present normal inspection; Absent lymphadenopathy Chest Chest inspection: Present symmetric chest wall rise and tenderness (left side rib pain.) Respiratory Respiratory exam: Present other Expanded Respiratory Exam Location: Left: rhonchi and Upper: rhonchi Cardiovascular Cardiovascular exam: Present regular rate and normal rhythm Abdominal Exam Abdominal exam: Present soft and normal bowel sounds; Absent distention, tenderness or guarding Extremities Exam Extremities exam: Present normal inspection Back Exam Back exam: Present normal inspection; Absent CVA tenderness (R) or CVA tenderness (L) Neurological Exam Neurological exam: Present alert and oriented X3 Psychiatric Psychiatric exam: Present normal affect and normal mood Skin Skin exam: Present warm, dry and intact Lymphatic Lymphatic Findings: no adenopathy Medical Decision Making Medical Records Screening: Per USPSTF and CDC recommendations, given the prevalence of disease in our region, it is our hospital?s policy to screen for HIV and viral Hepatitis for all patients aged 18 and over and those with ongoing risk factors. Dread Inquiry Pt receiving controlled substance: No Dread was queried for this patient: No Vital Signs: 04/07/24 18:05 04/07/24 19:06 Temperature 99.0 F 99.0 F Temperature Source Oral Pulse Rate 101 H Pulse Rate [Left Brachial] 101 H Respiratory Rate 22 22 Blood Pressure 140/71 Blood Pressure [Left Arm] 140/71 Blood Pressure Mean [Left Arm] 94 Blood Pressure Source [Left Arm] Automatic Cuff Blood Pressure Position [Left Arm] Sitting 02 Sat by Pulse Oximetry 96 Oxygen Delivery Method Room Air Lab Data Lab results reviewed: Yes I reviewed the patient's lab results. Lab Results 04/07/24 17:57: Urine Color Dark yellow, Urine Appearance Turbid, Urine pH 5.5, Ur Specific [place] 1.030, Urine Protein 1+, Urine Glucose (UA) Negative, Urine Ketones 1+, Urine Blood 1+, Urine Nitrate Negative, Urine Bilirubin 2+ A, Urine Urobilinogen 2, Ur Leukocyte Esterase 1+ A 04/07/24 18:08: Influenza Type A Ag Negative, Influenza Type B Ag Negative Orders (Tests/Meds): ORDERS Category Date Time Status Urine Culture Stat Micro 04/07/24 17:56 Received
--- NOTE | 2024-04-12 09:23 | PC.NURSE ---
REVIEWED URINE CULTURE, PATIENT ON CEFDINIR, NO CHANGES NEEDED AT THIS TIME
== END 2024-04-07 19:14 | disposition home or self-care (01) ==
PROVIDERS: Emergency Provider Nurse Practitioner Family; PCP Family Medicine
DX: J22 Unspecified acute lower respiratory infection (principal); N30.01 Acute cystitis with hematuria; R11.0 Nausea; R63.8 Other symptoms and signs concerning food and fluid intake; R05.9 Cough, unspecified; R09.81 Nasal congestion; R53.1 Weakness; R35.0 Frequency of micturition
CPT/HCPCS: 81003; 87086; 87088; 87186; 87804; 99212; G0381

== ENCOUNTER 2024-04-16 10:20 | Outpatient (CLI) | payer MEDICARE, SELFPAY ==
--- NOTE | 2024-04-16 10:26 | XR_ITS ---
FINAL REPORT CLINICAL HISTORY: chest pain COMPARISON: Chest x-ray 12/30/2021 FINDINGS: 3 views of the left ribs were obtained. There is no displaced, acute fracture identified. There is a calcified granuloma in the left upper lobe. The visualized lungs are otherwise clear. No pneumothorax is identified. IMPRESSION: No displaced rib fracture or pneumothorax identified. Reviewed, Interpreted and Dictated by Prince Nava MD Transcribed by Bernie Alonzo Authenticated and [facility]
[2024-04-16 18:08] LABS: Basophils % 0.7 % (0.1-2.0); Eosinophils # 0.1 K/mm3 (0.0-0.4); Eosinophils % 0.9 % (0.1-12.0); Hematocrit 35.5 % (37.0-47.0); Hemoglobin 11.5 g/dL (12.2-16.2); Lymphocytes # 0.9 K/mm3 (0.7-4.5); Lymphocytes % 15.2 % (10-50); Mean Corpuscular HGB Conc 32.4 g/dL (31.8-35.4); Mean Corpuscular Hemoglobin 28.3 pg (27.0-31.2); Mean Corpuscular Volume 87.2 fl (81-99); Mean Platelet Volume 10.6 fl (7.4-10.4); Monocytes # 0.7 K/mm3 (0.1-1.0); Monocytes % 11.7 % (1.7-9.3); Neutrophils # 4.1 K/mm3 (1.8-7.8); Neutrophils % 70.8 % (37.0-80.0); Platelet Count 325 K/mm3 (142-424); Red Blood Count 4.07 M/mm3 (4.20-5.40); Red Cell Distribution Width 13.4 % (11.5-17.5); White Blood Count 5.7 K/mm3 (4.8-10.8)
[2024-04-16 19:14] LABS: Albumin Level 3.2 g/dl (3.5-5.0); Chloride 105 mmol/L (98-107); Potassium 3.8 mmoL/L (3.5-5.1); Sodium 138 mmol/L (136-145)
[2024-04-16 19:16] LABS: Blood Urea Nitrogen 8 mg/dl (7-17); Estimated Glomerular Filt Rate 71 ml/min (>60); GFR (African American) 86 ML/MIN (>60)
[2024-04-16 19:17] LABS: Alanine Aminotransferase 21 U/L (12-78); Albumin/Globulin Ratio 1.2 (1.1-1.8); Alkaline Phosphatase 73 U/L (38-126); Anion Gap 13.8 mEq/L (5-15); Aspartate Amino Transferase 24 U/L (14-36); Bilirubin,Total 0.3 mg/dl (0.2-1.3); Carbon Dioxide 23 mmol/L (22.0-30.0); Globulin 2.7 g/dL (1.3-3.2); Glucose 101 mg/dl (74-100); Total Protein,Serum 5.9 g/dl (6.3-8.2)
[2024-04-16 19:57] LABS: Thyroid Stimulating Hormone 1.22 uIU/mL (0.465-4.68)
[2024-04-16 20:16] LABS: Vitamin B12 463 pg/mL (239-931)
[2024-04-17 00:14] LABS: Hemoglobin A1C 5.1 % (4.0-6.0)
== END 2024-04-16 23:59 | disposition home or self-care (01) ==
LOC: RAD 10:21
PROVIDERS: PCP Nurse Practitioner Family; Visit Provider Family Medicine
DX: M79.18 Myalgia, other site (principal); R05.9 Cough, unspecified; N30.01 Acute cystitis with hematuria; N32.81 Overactive bladder; Z13.1 Encounter for screening for diabetes mellitus; I10 Essential (primary) hypertension; E78.5 Hyperlipidemia, unspecified; I25.10 Atherosclerotic heart disease of native coronary artery without angina pectoris; R73.09 Other abnormal glucose
CPT/HCPCS: 71101; 80053; 82607; 83036; 84443; 85025; 87086; 87088; 87186

== ENCOUNTER 2024-04-30 11:45 | Outpatient (CLI) | payer MEDICARE, SELFPAY | END 2024-04-30 23:59 | disposition home or self-care (01) | LOC: LAB.DROPOF 05-01 09:13 | PROVIDERS: PCP Nurse Practitioner Family; Visit Provider Family Medicine | DX: R39.9 Unspecified symptoms and signs involving the genitourinary system (principal); N30.01 Acute cystitis with hematuria | CPT/HCPCS: 87086; 87210 ==

== ENCOUNTER 2024-09-20 10:49 | Outpatient (CLI) | payer MEDICARE, SELFPAY ==
--- OUTSIDE RECORDS SUMMARY | 2020-01-26 06:00 | XMS_ITS | Encounter Summary ---
Author Organization [facility] [place] [address] Care Team Providers Care Experimental Worker Name Role Phone Unavailable Primary Care Provider Unavailabl e Encounter Details Date Type Department Care Team (Late st Contact Info) Description 01/26/2020 5:00 AM EST Hospital Encounter [facility] Referral Lab [address] [phone] Haroon Cain MD [address] [place] [address] Social History Tobacco Use Types Packs/Day Years [...]
--- OUTSIDE RECORDS SUMMARY | 2024-07-31 10:30 | XMS_ITS | Encounter Summary ---
Author Organization [facility] Address [address] [place] [address] Care Team Providers Care Cellar Hand Name Role Phone Nico Moncada MD Unavailable [phone] Cali Snyder APRN Primary Care Provider [phone] Elba Alves DO Unavailable [phone] Reason for Visit * Reason Comments Consult [facility] 3 * Consultation (Routine) - Closed Specialty Diagnoses / Procedures Referred By Norma webb Referred To Contact Gynecologic Oncology Diagnoses Carcinoma in situ of vulva Elba Alves DO [address] [facility] [address] [place] [address] Phone: tel: fax: [facility] Gynecology [address] [place] [address] Phone: tel: fax: Referral ID Status Reason Start Date Expiration Date V isits Requested Visits Authorized [id number] Closed Specialty Services Required 06/13/2024 12/13/2025 1 1 Encounter Details Date Type Department Care Team (Late st Contact Info) Description 07/31/2024 10:30 AM EDT Office Visit [facility]necology [address] [place] [id number] Mark Zurita MD [address] [place] [address] Severe vulvar dysplasia, histologically confirmed (Primary Dx); Carcinoma in situ of vulva Social History Tobacco Use Types Packs/Day Years Used Date Smoking Tobacco: Former Cigarettes 1 16 2 2019 Passive Smoke Exposure: Past Smokeless Tobacco: Never Alcohol Use Standard Drinks/Week Comments Never 0 (1 standard drink = 0.6 oz pur e alcohol) PHQ-2 Answer Date Recorded Patient Health Questionnaire-2 Score 0 07/31/2024 PHQ-2A Answer Date Recorded Patient Health Questionnaire-2 Score 0 09/01/2022 Comments No Sex and Gender Information Value Date Recorded Sex Assigned at Not on file Legal Sex Female 7:42 PM EDT Gender Identity Not on file Sexual Orientation Not on file documented as of this encounter Last Filed Vital Signs Vital Sign Reading Time Taken Comments Blood Pressure 126/49 07/31/2024 10:51 AM EDT Pulse 57 07/31/2024 10:51 AM EDT Temperature 36.4 C (97.5 F) 07/31/2024 10:51 AM EDT Respiratory Rate 16 07/31/2024 10:51 AM EDT Oxygen Saturation 97% 07/31/2024 10:51 AM EDT Inhaled Oxygen Concentration - - Weight 53.1 kg (117 lb 1 oz) 07/31/2024 10:51 AM EDT Height 162.6 cm (5' 4 ) 07/31/2024 10:51 AM EDT Body Mass Index 20.09 07/31/2024 10:51 AM EDT documented in this encounter Functional Status * Over the past 2 weeks, how often have you been bothered by any of the following problems? Question Answer Date of Assessment Author Little interest or pleasure in doing things Not at all 07/31/2024 10:49 AM EDT Florin Orozco Feeling down, depressed, or hopeless Not at all 07/31/2024 10:49 AM EDT Florin Orozco Patient Health Questionnaire-2 Score 0 07/31/2024 10:49 AM EDT Joseph Orozco documented as of this encounter Miscellaneous Notes * H&P - Mark Zurita MD - 07/31/2024 10:30 AM EDT Images from the original note were not included. Chief Concern & History Of Present Illness Patient ID: Jacque Worley is a 73 y.o. female Referring Physician: Elba Alves DO [address] [facility] [address] [place] [address] Primary Care Provider: Cali Snyder APRN History of Present Illness: Jacque Worley is a 73 y.o. female here for consult due to Vulvar HSIL/OLIVIA 05-31-[address] Elba Alves for AE and C/O some vaginal discomfort and 'spot down there' that had been present for 7-8 years. -exam showed Left labia scarring from prior condyloma removal? And at 6 o'clock position slightly > 1 cm a 'condyloma with darkened area on the edge it was bluish in color and 5 mm BX done of thisarea Path: Vulvar OLIVIA 3 HX of CABG X [address] Delgado 2019 & then wire removal 2021 Last Pap: 05-31-2024 Negative & Negative HR HPV DNA Review of Systems Constitutional: Negative. Respiratory: Negative. Cardiovascular: Negative. Gastrointestinal: Negative. Genitourinary: Healed BX site Psychiatric/Behavioral: Negative. Patient's Oncology History documentation Oncology History No history exists. History: [Medical History] [Medical History] Past Medical History Diagnosis Date COPD (chronic obstructive pulmonary disease) ([facility]/HCC) COVID-19 11/13/2021 Heart disease Hepatitis C Personal history of other diseases of the digestive system History of gallstones Personal history of other diseases of the musculoskeletal system and connective tissue History of osteoporosis Rheumatoid arthritis ([facility]) Skin cancer UTI (urinary tract infection) UTI (urinary tract infection) [Surgical History] [Surgical History] Past Surgical History Procedure Laterality Date CARDIAC CATHETERIZATION N/A CATARACT EXTRACTION N/A CORONARY ARTERY BYPASS GRAFT N/A 12/25/2019 CABG x 1 - AGUILAR to LAD (Dr Jose Delgado) LEG SURGERY N/A STERNAL WIRES REMOVAL 12/09/2021 Dr Jose Delgado - [facility] TUBAL LIGATION N/A [Allergies] [Allergies] Allergen Reactions Cephalexin Hives Acetaminophen Unknown - Patient states they do not know rxn details Naproxen Other - please document in the comment field and Unknown - Patient states they do not knowrxn details [Medications Ordered Prior to Encounter] [Medications Ordered Prior to Encounter] Current Outpatient Medications on File Prior to Visit Medication Sig Dispense Refill albuterol 108 (90 Base) MCG/ACT inhaler INHALE 2 PUFFS BY MOUTH EVERY 4 TO 6 HOURS NEEDED FOR SHORTNESS OF BREATH OR WHEEZING alendronate (Fosamax) 70 MG tablet TAKE 1 TABLET BY MOUTH EVERY WEEK ON SAME DAY EACH WEEK Aspirin Buf,PrVdup-YbNxzp-LlA, 81 MG tablet TAKE 1 TABLET DAILY. Breo Ellipta 100-25 MCG/INH inhaler INHALE 1 PUFF BY MOUTH DAILY estradiol (Estrace) 0.1 MG/GM vaginal cream USING FINGER TECHNIQUE DAILY FOR 2 WEEKS AND THEN TWICEWEEKLY VAGINALLY hydroxychloroquine (Plaquenil) 200 MG tablet Take 1 tablet (200 mg) by mouth 1 (one) time each day.30 tablet 11 metoprolol tartrate (Lopressor) 25 MG tablet Take 0.5 tablets (12.5 mg) by mouth 2 (two) times a day. oxybutynin XL (Ditropan-XL) 10 MG 24 hr tablet Take 1 tablet (10 mg) by mouth 1 (one) time each day. pramipexole (Mirapex) 0.125 MG tablet TAKE 1 TABLET BY MOUTH NIGHTLY FOR RESTLESS LEGS predniSONE (Deltasone) 5 MG tablet Take 3 tablets for 5 days, then take 2 tablets for 5 days, then take 1 tablet for 5 days. 30 tablet 1 Tofacitinib Citrate ER (Xeljanz XR) 11 MG tablet sustained-release 24 hour Take 1 tablet by mouth 1(one) time each day. 30 tablet 3 atorvastatin (Lipitor) 20 MG tablet 1 (one) time each day. (Patient not taking: Reported on 07/31/2024) BIOTIN PO Take by mouth. (Patient not taking: Reported on 07/31/2024) cholecalciferol (Vitamin D-3) 25 MCG (1000 UT) capsule 1 (one) time each day. (Patient not taking: Reported on 07/31/2024) fluticasone (Flonase) 50 MCG/ACT nasal spray SHAKE LIQUID AND USE 1 SPRAY IN EACH NOSTRIL DAILY NEEDED FOR ALLERGY SYMPTOMS (Patient not taking: Reported on 07/31/2024) Multiple Vitamin (MULTIVITAMINS PO) Take by mouth. (Patient not taking: Reported on 07/31/2024) rdrzwodg-biwrbnxsh-dwvjaugikvwky (Maxitrol) 3.5-36081-8.1 ophthalmic suspension (Patient not taking: Reported on 07/31/2024) ondansetron (Zofran) 4 MG tablet Take 1 tablet by mouth every 8 hours as needed for nausea or vomiting. (Patient not taking: Reported on 07/31/2024) No current facility-administered medications on file prior to visit. [Family History] [Family History] Problem Relation Name Age of Onset Anxiety disorder Sibling Conversions - Other Sibling Bipolar disorder (manic depression) Addiction problem Sibling Cardiac disorder Mother Cardiac disorder Father Cardiac disorder Sibling Crohn's disease Mother Depression Sibling Diabetes Father Hypertension Father Liver disease Father Hepatitis Mother [Social History] [Social History] Tobacco Use Smoking status: Former Current packs/day: 0.00 Average packs/day: 1 pack/day for 16.0 years (16.0 ttl pk-yrs) Types: Cigarettes Start date: 2003 Quit date: 2019 Years since quittin.3 Passive exposure: Past Smokeless tobacco: Never Vaping Use Vaping status: Never Used Substance Use Topics Alcohol use: Never Drug use: Never Comment: Drug use: No drug use Objective Physical Exam: Visit Vitals BP (!) 126/49 (BP Location: Left arm, Patient Position: Sitting, BP Cuff Size: Large adult) Pulse 57 Temp 36.4 ??C (97.5 ??F) (Temporal) Resp 16 Body mass index is 20.09 kg/m??. Physical Exam Vitals and nursing note reviewed. Exam conducted with a cooker cleaner present. Constitutional: Appearance: Normal appearance. She is normal weight. HENT: Head: Normocephalic and atraumatic. Eyes: General: No scleral icterus. Conjunctiva/sclera: Conjunctivae normal. Cardiovascular: Rate and Rhythm: Normal rate and regular rhythm. Heart sounds: Normal heart sounds. Pulmonary: Effort: Pulmonary effort is normal. No respiratory distress. Breath sounds: Wheezing present. Comments: Mild exp. wheezing Genitourinary: Exam position: Lithotomy position. Comments: BX site well healed Residual lesion noted in RED 2 X 3 cm Acetic acid applied and no further worrisome lesions noted very min faint slow changing AWE in Blue Examined with Dr. Duran Neurological: Mental Status: She is alert and oriented to person, place, and time. Psychiatric: Mood and Affect: Mood normal. Behavior: Behavior normal. Thought Content: Thought content normal. Judgment: Judgment normal. Results: Labs: Path: Final Diagnosis (no units) Date/Time Value 12/09/2021 1006 WIRES, GROSS DIAGNOSIS ONLY. Imaging: Pelvic US: Mammogram: I spent 45 minutes caring for patient including reviewing nurse intake, history, previous records, labs, and imaging. Time also included physical exam along with face to face counseling and discussion of assessment & plan with patient. Pap Smear was not collected today. Problem: Vulvar OLIVIA 3 Assessment and plan: -05-31-[address] Elba Alves for AE and C/O some vaginal discomfort and 'spot down there' that had been present for 7-8 years. -exam showed Left labia scarring from prior condyloma removal? And at 6 o'clock position slightly > 1 cm a 'condyloma with darkened area on the edge it was bluish in color and 5 mm BX done of thisarea Path: Vulvar OLIVIA 3 -I recommend SPV and given location with Dr. Duran and he agrees to schedule -Procedure, risks, benefits, and alternatives discussed -all questions answered informed consent is obtained -E-consent signed and in epic Problem: History of CABG in the past & COPD, GERD, RA, HTN Assessment and plan: -get anesthesia clearance prior to surgery Problem: Assessment and plan: I saw and evaluated the patient with the medical/ART FRAMING MANAGER/PA student. I discussed the case with the medical/ART FRAMING MANAGER/PA student and agree with the findings and plan as documented. I personally performed the Examand Medical Decision Making. MD Mark Frederick MD Career Guidance Technician [facility] GYNECOLOGY [address] [facility] [address] [facility] [facility] [address] Dept: [phone] Dept Loc: [phone] * Progress Notes - Mark Zurita MD - 07/31/2024 10:30 AM EDT Images from the original note were not included. Patient ID: Jacque Worley is a 73 y.o. female Referring Physician: Elba Alves DO [address] [place] [address] Primary Care Provider: Cali Snyder APRN History of Present Illness: Jacque Worley is a 73 y.o. female here for consult due to Vulvar HSIL/OLIVIA 05-31-[address] Elba Alves for AE and C/O some vaginal discomfort and 'spot down there' that had been present for 7-8 years. -exam showed Left labia scarring from prior condyloma removal? And at 6 o'clock position slightly > 1 cm a 'condyloma with darkened area on the edge it was bluish in color and 5 mm BX done of thisarea Path: Vulvar OLIVIA 3 HX of CABG X [address] Delgado 2019 & then wire removal 2021 Last Pap: 05-31-2024 Negative & Negative HR HPV DNA Review of Systems Constitutional: Negative. Respiratory: Negative. Cardiovascular: Negative. Gastrointestinal: Negative. Genitourinary: Healed BX site Psychiatric/Behavioral: Negative. Oncology History No history exists. History: Medical History[1] Surgical History[2] Allergies[3] Medications Ordered Prior to Encounter[4] Family History[5] Social History[6] Objective Physical Exam: Visit Vitals BP (!) 126/49 (BP Location: Left arm, Patient Position: Sitting, BP Cuff Size: Large adult) Pulse 57 Temp 36.4 ??C (97.5 ??F) (Temporal) Resp 16 Body mass index is 20.09 kg/m??. Physical Exam Vitals and nursing note reviewed. Exam conducted with a cooker cleaner present. Constitutional: Appearance: Normal appearance. She is normal weight. HENT: Head: Normocephalic and atraumatic. Eyes: General: No scleral icterus. Conjunctiva/sclera: Conjunctivae normal. Cardiovascular: Rate and Rhythm: Normal rate and regular rhythm. Heart sounds: Normal heart sounds. Pulmonary: Effort: Pulmonary effort is normal. No respiratory distress. Breath sounds: Wheezing present. Comments: Mild exp. wheezing Genitourinary: Exam position: Lithotomy position. Comments: BX site well healed Residual lesion noted in RED 2 X 3 cm Acetic acid applied and no further worrisome lesions noted very min faint slow changing AWE in Blue Examined with Dr. Duran Neurological: Mental Status: She is alert and oriented to person, place, and time. Psychiatric: Mood and Affect: Mood normal. Behavior: Behavior normal. Thought Content: Thought content normal. Judgment: Judgment normal. Results: Labs: Path: Final Diagnosis (no units) Date/Time Value 12/09/2021 1006 WIRES, GROSS DIAGNOSIS ONLY. Imaging: Pelvic US: Mammogram: I spent 45 minutes caring for patient including reviewing nurse intake, history, previous records, labs, and imaging. Time also included physical exam along with face to face counseling and discussion of assessment & plan with patient. Pap Smear was not collected today. Problem: Vulvar OLIVIA 3 Assessment and plan: -05-31-[address] Elba Alves for AE and C/O some vaginal discomfort and 'spot down there' that had been present for 7-8 years. -exam showed Left labia scarring from prior condyloma removal? And at 6 o'clock position slightly > 1 cm a 'condyloma with darkened area on the edge it was bluish in color and 5 mm BX done of thisarea Path: Vulvar OLIVIA 3 -I recommend SPV and given location with Dr. Duran and he agrees to schedule -Procedure, risks, benefits, and alternatives discussed -all questions answered informed consent is obtained -E-consent signed and in epic Problem: History of CABG in the past & COPD, GERD, RA, HTN Assessment and plan: -get anesthesia clearance prior to surgery Problem: Assessment and plan: I saw and evaluated the patient with the medical/ART FRAMING MANAGER/PA student. I discussed the case with the medical/ART FRAMING MANAGER/PA student and agree with the findings and plan as documented. I personally performed the Examand Medical Decision Making. MD Mark Frederick MD Career Guidance Technician [facility] GYNECOLOGY [address] [facility] [address] [facility] [facility] [address] Dept: [phone] Dept Loc: [phone] [1] Past Medical History: Diagnosis Date COPD (chronic obstructive pulmonary disease) (CMS/HCC) COVID-19 11/13/2021 Heart disease Hepatitis C Personal history of other diseases of the digestive system History of gallstones Personal history of other diseases of the musculoskeletal system and connective tissue History of osteoporosis Rheumatoid arthritis (CMS/HCC) Skin cancer UTI (urinary tract infection) UTI (urinary tract infection) [2] Past Surgical History: Procedure Laterality Date CARDIAC CATHETERIZATION N/A CATARACT EXTRACTION N/A CORONARY ARTERY BYPASS GRAFT N/A 12/25/2019 CABG x 1 - AGUILAR to LAD (Dr Jose Delgado) LEG SURGERY N/A STERNAL WIRES REMOVAL 12/09/2021 Dr Jose Delgado - [facility] TUBAL LIGATION N/A [3] Allergies Allergen Reactions Cephalexin Hives Acetaminophen Unknown - Patient states they do not know rxn details Naproxen Other - please document in the comment field and Unknown - Patient states they do not knowrxn details [4] Current Outpatient Medications on File Prior to Visit Medication Sig Dispense Refill albuterol 108 (90 Base) MCG/ACT inhaler INHALE 2 PUFFS BY MOUTH EVERY 4 TO 6 HOURS NEEDED FOR SHORTNESS OF BREATH OR WHEEZING alendronate (Fosamax) 70 MG tablet TAKE 1 TABLET BY MOUTH EVERY WEEK ON SAME DAY EACH WEEK Aspirin Buf,TgAsdj-HsLlaq-FsN, 81 MG tablet TAKE 1 TABLET DAILY. Breo Ellipta 100-25 MCG/INH inhaler INHALE 1 PUFF BY MOUTH DAILY estradiol (Estrace) 0.1 MG/GM vaginal cream USING FINGER TECHNIQUE DAILY FOR 2 WEEKS AND THEN TWICEWEEKLY VAGINALLY hydroxychloroquine (Plaquenil) 200 MG tablet Take 1 tablet (200 mg) by mouth 1 (one) time each day.30 tablet 11 metoprolol tartrate (Lopressor) 25 MG tablet Take 0.5 tablets (12.5 mg) by mouth 2 (two) times a day. oxybutynin XL (Ditropan-XL) 10 MG 24 hr tablet Take 1 tablet (10 mg) by mouth 1 (one) time each day. pramipexole (Mirapex) 0.125 MG tablet TAKE 1 TABLET BY MOUTH NIGHTLY FOR RESTLESS LEGS predniSONE (Deltasone) 5 MG tablet Take 3 tablets for 5 days, then take 2 tablets for 5 days, then take 1 tablet for 5 days. 30 tablet 1 Tofacitinib Citrate ER (Xeljanz XR) 11 MG tablet sustained-release 24 hour Take 1 tablet by mouth 1(one) time each day. 30 tablet 3 atorvastatin (Lipitor) 20 MG tablet 1 (one) time each day. (Patient not taking: Reported on 07/31/2024) BIOTIN PO Take by mouth. (Patient not taking: Reported on 07/31/2024) cholecalciferol (Vitamin D-3) 25 MCG (1000 UT) capsule 1 (one) time each day. (Patient not taking: Reported on 07/31/2024) fluticasone (Flonase) 50 MCG/ACT nasal spray SHAKE LIQUID AND USE 1 SPRAY IN EACH NOSTRIL DAILY NEEDED FOR ALLERGY SYMPTOMS (Patient not taking: Reported on 07/31/2024) Multiple Vitamin (MULTIVITAMINS PO) Take by mouth. (Patient not taking: Reported on 07/31/2024) iztgyzhk-uvvrbygbz-utokposepltao (Maxitrol) 3.5-85947-8.1 ophthalmic suspension (Patient not taking: Reported on 07/31/2024) ondansetron (Zofran) 4 MG tablet Take 1 tablet by mouth every 8 hours as needed for nausea or vomiting. (Patient not taking: Reported on 07/31/2024) No current facility-administered medications on file prior to visit. [5] Family History Problem Relation Name Age of Onset Anxiety disorder Sibling Conversions - Other Sibling Bipolar disorder (manic depression) Addiction problem Sibling Cardiac disorder Mother Cardiac disorder Father Cardiac disorder Sibling Crohn's disease Mother Depression Sibling Diabetes Father Hypertension Father Liver disease Father Hepatitis Mother [6] Social History Tobacco Use Smoking status: Former Current packs/day: 0.00 Average packs/day: 1 pack/day for 16.0 years (16.0 ttl pk-yrs) Types: Cigarettes Start date: 2003 Quit date: 2020 Years since quittin.3 Passive exposure: Past Smokeless tobacco: Never Vaping Use Vaping status: Never Used Substance Use Topics Alcohol use: Never Drug use: Never Comment: Drug use: No drug use documented in this encounter Plan of Treatment Upcoming Encounters Date Type Department Care Team (Late st Contact Info) Description 10/01/2024 9:20 AM EDT Appointment [facility] Radiology [address] [place] [address] 10/01/2024 10:15 AM EDT Office Visit [facility] [address] [place] [address] Candido Fitzgerald MD [address] [place] [address] 01/01/2025 9:40 AM EDT Office Visit [facility] Gynecology [address] [place] [address] Mark Zurita MD [address] [place] [address] 01/21/2025 12:50 PM EST Office Visit [facility] [address] [place] [address] Lisa Leon, SAFETY LAMP KEEPER [address] [place] [address] documented as of this encounter Results * Hemoglobin A1c (07/31/2024 12:03 PM EDT) Hemoglobin A1c 5.3 <5.7 % 07/31/2024 2:16 PM EDT [facility] Blood Venous blood specimen / Unknown Venipuncture / Unknown 07/31/2024 12:03 PM EDT 07/31/2024 12:52 PM EDT Narrative [facility] - 07/31/2024 2:16 PM EDT HA1C Interpretive Data: Diagnosis of Diabetes: Diabetic > or = 6.5% Pre-diabetic 5.7 to 6.4% Non-diabetic < or = 5.6% Glycemic Targets for Type I and Type II Diabetics: Non- Adults <7.0% Adults <6.0% Children and Adolescents <7.5% Source: [employer]. Standards of medical care in diabetes,2017. Diabetes Care.2017:40 (suppl 1):S1-S135. us Mark Zurita MD LAB BLOOD ORDERABLES Final Res ult [facility] [address] [place] [address] * CBC and Differential (07/31/2024 12:03 PM EDT) WBC Count 5.85 3.70 - 10.30 10*3/uL LAB HEMATOLOGY METHOD 07/31/2024 1:08 PM EDT [facility] RBC Count 4.45 3.90 - 5.20 10*6/uL LAB HEMATOLOGY METHOD 07/31/2024 1:08 PM EDT [facility] HGB 13.0 11.2 - 15.7 g/dL LAB HEMATOLOGY METHOD 07/31/2024 1:08 PM EDT [facility] HCT 38.5 34.0 - 45.0 % LAB HEMATOLOGY METHOD 07/31/2024 1:08 PM EDT [facility] Platelet Count 175 155 - 369 10*3/uL LAB HEMATOLOGY METHOD 07/31/2024 1:08 PM EDT [facility] MCV 87 79 - 98 fL LAB HEMATOLOGY METHOD 07/31/2024 1:08 PM EDT [facility] MCH 29.2 26.0 - 32.0 pg LAB HEMATOLOGY METHOD 07/31/2024 1:08 PM EDT [facility] MCHC 33.8 30.7 - 35.5 g/dL LAB HEMATOLOGY METHOD 07/31/2024 1:08 PM EDT [facility] RDW 14.1 11.5 - 14.5 % LAB HEMATOLOGY METHOD 07/31/2024 1:08 PM EDT [facility] MPV 11.1 8.8 - 12.5 fL LAB HEMATOLOGY METHOD 07/31/2024 1:08 PM EDT [facility] nRBC 0.0 <=0.0 per 100 WBCs LAB HEMATOLOGY METHOD 07/31/2024 1:08 PM EDT [facility] Differential Type Automated LAB HEMATOLOGY METHOD 07/31/2024 1:08 PM EDT [facility] Neutrophils % 66 % LAB HEMATOLOGY METHOD 07/31/2024 1:08 PM EDT [facility] Lymphocytes % 23 % LAB HEMATOLOGY METHOD 07/31/2024 1:08 PM EDT [facility] Monocytes % 9 % LAB HEMATOLOGY METHOD 07/31/2024 1:08 PM EDT [facility] Eosinophils % 1 % LAB HEMATOLOGY METHOD 07/31/2024 1:08 PM EDT [facility] Basophils % 1 % LAB HEMATOLOGY METHOD 07/31/2024 1:08 PM EDT [facility] Immature Granulocytes % 0 % LAB HEMATOLOGY METHOD 07/31/2024 1:08 PM EDT [facility] Neutrophils Absolute 3.84 1.60 - 6.10 10*3/uL LAB HEMATOLOGY METHOD 07/31/2024 1:08 PM EDT [facility] Lymphocytes Absolute 1.37 1.20 - 3.90 10*3/uL LAB HEMATOLOGY METHOD 07/31/2024 1:08 PM EDT [facility] Monocytes Absolute 0.51 0.30 - 0.90 10*3/uL LAB HEMATOLOGY METHOD 07/31/2024 1:08 PM EDT [facility] Eosinophils Absolute 0.07 0.00 - 0.50 10*3/uL LAB HEMATOLOGY METHOD 07/31/2024 1:08 PM EDT [facility] Basophils Absolute 0.04 0.00 - 0.10 10*3/uL LAB HEMATOLOGY METHOD 07/31/2024 1:08 PM EDT [facility] Immature Granulocytes Absolute 0.02 0.00 - 0.06 10*3/uL LAB HEMATOLOGY METHOD 07/31/2024 1:08 PM EDT [facility] Blood Venous blood specimen / Unknown Venipuncture / Unknown 07/31/2024 12:03 PM EDT 07/31/2024 12:52 PM EDT Narrative [facility] - 07/31/2024 1:08 PM EDT Therapeutic decision making should be based on absolute values, rather than percentages. us Mark Zurita MD LAB BLOOD ORDERABLES Final Res ult [facility] [address] [place] [address] * Comprehensive Metabolic Panel, Plasma (07/31/2024 12:03 PM EDT) Glucose, Plasma 90 74 - 99 mg/dL 07/31/2024 1:09 PM EDT [facility] BUN, Plasma 12 8 - 23 mg/dL 07/31/2024 1:09 PM EDT [facility] Creatinine, Plasma 0.86 0.60 - 1.10 mg/dL 07/31/2024 1:09 PM EDT [facility] BUN/Creatinine Ratio 14 07/31/2024 1:09 PM EDT [facility] Sodium, Plasma 138 136 - 145 mmol/L 07/31/2024 1:09 PM EDT [facility] Potassium, Plasma 4.1 3.6 - 4.9 mmol/L 07/31/2024 1:09 PM EDT [facility] Chloride, Plasma 104 97 - 107 mmol/L 07/31/2024 1:09 PM EDT [facility] CO2, Plasma 26 22 - 29 mmol/L 07/31/2024 1:09 PM EDT [facility] Anion Gap 8 6 - 16 mmol/L 07/31/2024 1:09 PM EDT [facility] Total Calcium, Plasma 9.5 8.9 - 10.2 mg/dL 07/31/2024 1:09 PM EDT [facility] Total Protein 6.7 6.3 - 7.9 g/dL 07/31/2024 1:09 PM EDT [facility] Albumin, Plasma 4.2 3.5 - 5.2 g/dL 07/31/2024 1:09 PM EDT [facility] AST, Plasma 23 10 - 35 U/L 07/31/2024 1:09 PM EDT [facility] ALT, Plasma 16 10 - 35 U/L 07/31/2024 1:09 PM EDT [facility] Alkaline Phosphatase, Plasma 63 46 - 142 U/L 07/31/2024 1:09 PM EDT [facility] Total Bilirubin, Plasma 0.3 0.2 - 1.1 mg/dL 07/31/2024 1:09 PM EDT [facility] eGFRcr 72.3 mL/min/1.7 3m*2 07/31/2024 1:09 PM EDT [facility] Comment:Reported eGFRcr in m L/min/1.73m2 is based the CKD-EPI 2020 equation that does not use a race coefficient. 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, vulva documented in this encounter Additional Health Concerns Assessment Noted Time A fall risk assessment has been complete d for the patient 07/02/2024 11:08 AM EDT A Body Mass Index follow-up plan has been documented for the patient 07/02/2024 11:57 AM EDT documented as of this encounter Care Teams Cellar Hand Relationship Specialty Start Date End Date Cali Snyder APRN [address] [place] [address] PCP - General 01/09/24 Nico Moncada MD [address] [place] [address] Referring Physician Cardiology 12/21/21 Elba Alves DO [address] [place] [address] Resident 06/13/24 documented as of this encounter
--- OUTSIDE RECORDS SUMMARY | 2024-07-31 11:50 | XMS_ITS | Encounter Summary ---
Author Organization Healthcare Address [address] [place] [address] Care Team Providers Care Helper Animal Laboratory Name Role Phone Nico Moncada MD Unavailable [phone] Cali Snyder APRN Primary Care Provider [phone] Elba Alves DO Unavailable [phone] Reason for Visit * Reason Comments Labs Labs via venipunctur e Encounter Details Date Type Department Care Team (Latest Contact Info) Description 07/31/2024 11:50 AM EDT Clinical Support [facility] Gynecology [address] [place] [address] Carcinoma in situ of vulva Social History Tobacco Use Types Packs/Day Years Used Date Smoking Tobacco: Former Cigarettes 1 16 2 - 2019 Passive Smoke Exposure: Past Smokeless Tobacco: [...] on file documented as of this encounter Functional Status * Over the [...] Joseph Orozco documented as of this encounter Plan of Treatment Upcoming Encounters Date Type Department Care Team (Late st Contact Info) Description 10/01/2024 9:20 AM EDT Appointment [facility] [address] [place] [phone] 10/01/2024 10:15 AM EDT Office Visit [facility] [address] [place] [phone] Candido Fitzgerald MD [address] [facility] [address] [place] [address] 01/01/2025 9:40 AM EDT Office Visit [facility] Gynecology [address] [place] [phone] Mark Zurita MD [address] [facility] [address] [place] [address] 01/21/2025 12:50 PM EST Office Visit [facility] [address] [place] [address] Lisa Leon, MATERIAL ASSEMBLER [address] [place] [address] documented as of this encounter Procedures Procedure Name Priority Date/Time Associated Diagnosis Comments CBC WITH AUTO DIFFERENTIAL Routine 07/31/2024 12:03 PM EDT Carcinoma in situ of vulva HEMOGLOBIN A1C Routine 07/31/2024 12:03 PM EDT Carcinoma in situ of vulva COMPREHENSIVE METABOLIC PANEL, PLASMA Routine 07/31/2024 12:03 PM EDT Carcinoma in situ of vulva documented in this encounter Results * Comprehensive Metabolic Panel, Plasma (07/31/2024 12:03 PM EDT) Glucose, Plasma 90 74 - 99 mg/dL 07/31/2024 1:09 PM EDT [facility] BUN, Plasma 12 8 - 23 mg/dL 07/31/2024 1:09 PM EDT [facility] Creatinine, Plasma 0.86 0.60 - 1.10 mg/dL 07/31/2024 1:09 PM EDT [facility] BUN/Creatinine Ratio 14 07/31/2024 1:09 PM EDT [facility] Sodium, Plasma 138 136 - 145 mmol/L 07/31/2024 1:09 PM EDT [facility] Potassium, Plasma 4.1 3.6 - 4.9 mmol/L 07/31/2024 1:09 PM EDT [facility] Chloride, Plasma 104 97 - 107 mmol/L 07/31/2024 1:09 PM EDT [facility] CO2, Plasma 26 22 - 29 mmol/L 07/31/2024 1:09 PM EDT [facility] Anion Gap 8 6 - 16 mmol/L 07/31/2024 1:09 PM EDT [facility] Total Calcium, Plasma 9.5 8.9 - 10.2 mg/dL 07/31/2024 1:09 PM EDT [facility] Total Protein 6.7 6.3 - 7.9 g/dL 07/31/2024 1:09 PM EDT [facility] Albumin, Plasma 4.2 3.5 - 5.2 g/dL 07/31/2024 1:09 PM EDT [facility] AST, Plasma 23 10 - 35 U/L 07/31/2024 1:09 PM EDT [facility] ALT, Plasma 16 10 - 35 U/L 07/31/2024 1:09 PM EDT [facility] Alkaline Phosphatase, Plasma 63 46 - 142 U/L 07/31/2024 1:09 PM EDT [facility] Total Bilirubin, Plasma 0.3 0.2 - 1.1 mg/dL 07/31/2024 1:09 PM EDT [facility] eGFRcr 72.3 mL/min/1.7 3m*2 07/31/2024 1:09 PM EDT [facility] Comment:Reported eGFRcr in m L/min/1.73m2 is based the CKD-EPI 2020 equation that does not use a race coefficient. Blood Venous blood specimen / Unknown Venipuncture / Unknown 07/31/2024 12:03 PM EDT 07/31/2024 12:39 PM EDT us Mark Zurita MD LAB BLOOD ORDERABLES Final Res ult [facility] [address] [place] [address] * CBC and Differential (07/31/2024 12:03 PM EDT) WBC Count 5.85 3.70 - 10.30 10*3/uL LAB HEMATOLOGY METHOD 07/31/2024 1:08 PM EDT [facility] RBC Count 4.45 3.90 - 5.20 10*6/uL LAB HEMATOLOGY METHOD 07/31/2024 1:08 PM EDT [facility] HGB 13.0 11.2 - 15.7 g/dL LAB HEMATOLOGY METHOD 07/31/2024 1:08 PM EDT [facility] HCT 38.5 34.0 - 45.0 % LAB HEMATOLOGY METHOD 07/31/2024 1:08 PM EDT [facility] Platelet Count 175 155 - 369 10*3/uL LAB HEMATOLOGY METHOD 07/31/2024 1:08 PM EDT [facility] MCV 87 79 - 98 fL LAB HEMATOLOGY METHOD 07/31/2024 1:08 PM EDT [facility] MCH 29.2 26.0 - 32.0 pg LAB HEMATOLOGY METHOD 07/31/2024 1:08 PM EDT [facility] MCHC 33.8 30.7 - 35.5 g/dL LAB HEMATOLOGY METHOD 07/31/2024 1:08 PM EDT [facility] RDW 14.1 11.5 - 14.5 % LAB HEMATOLOGY METHOD 07/31/2024 1:08 PM EDT [facility] MPV 11.1 8.8 - 12.5 fL LAB HEMATOLOGY METHOD 07/31/2024 1:08 PM EDT [facility] nRBC 0.0 <=0.0 per 100 WBCs LAB HEMATOLOGY METHOD 07/31/2024 1:08 PM EDT [facility] Differential Type Automated LAB HEMATOLOGY METHOD 07/31/2024 1:08 PM EDT [facility] Neutrophils % 66 % LAB HEMATOLOGY METHOD 07/31/2024 1:08 PM EDT [facility] Lymphocytes % 23 % LAB HEMATOLOGY METHOD 07/31/2024 1:08 PM EDT [facility] Monocytes % 9 % LAB HEMATOLOGY METHOD 07/31/2024 1:08 PM EDT [facility] Eosinophils % 1 % LAB HEMATOLOGY METHOD 07/31/2024 1:08 PM EDT [facility] Basophils % 1 % LAB HEMATOLOGY METHOD 07/31/2024 1:08 PM EDT [facility] Immature Granulocytes % 0 % LAB HEMATOLOGY METHOD 07/31/2024 1:08 PM EDT [facility] Neutrophils Absolute 3.84 1.60 - 6.10 10*3/uL LAB HEMATOLOGY METHOD 07/31/2024 1:08 PM EDT [facility] Lymphocytes Absolute 1.37 1.20 - 3.90 10*3/uL LAB HEMATOLOGY METHOD 07/31/2024 1:08 PM EDT [facility] Monocytes Absolute 0.51 0.30 - 0.90 10*3/uL LAB HEMATOLOGY METHOD 07/31/2024 1:08 PM EDT [facility] Eosinophils Absolute 0.07 0.00 - 0.50 10*3/uL LAB HEMATOLOGY METHOD 07/31/2024 1:08 PM EDT [facility] Basophils Absolute 0.04 0.00 - 0.10 10*3/uL LAB HEMATOLOGY METHOD 07/31/2024 1:08 PM EDT [facility] Immature Granulocytes Absolute 0.02 0.00 - 0.06 10*3/uL LAB HEMATOLOGY METHOD 07/31/2024 1:08 PM EDT [facility] Blood Venous blood specimen / Unknown Venipuncture / Unknown 07/31/2024 12:03 PM EDT 07/31/2024 12:52 PM EDT Narrative [facility] - 07/31/2024 1:08 PM EDT Therapeutic decision making should be based on absolute values, rather than percentages. Mark Zurita MD LAB BLOOD ORDERABLES Final Res ult Performing Organization Address [facility] Co de Phone Number [facility] [address] [place] [address] * Hemoglobin A1c (07/31/2024 12:03 PM EDT) Hemoglobin A1c 5.3 <5.7 % 07/31/2024 2:16 PM EDT [facility] Blood Venous blood specimen / Unknown Venipuncture / Unknown 07/31/2024 12:03 PM EDT 07/31/2024 12:52 PM EDT Narrative [facility] - 07/31/2024 2:16 PM EDT HA1C Interpretive Data: Diagnosis of Diabetes: Diabetic > or = 6.5% Pre-diabetic 5.7 to 6.4% Non-diabetic < or = 5.6% Glycemic Targets for Type I and Type II Diabetics: Non- Adults <7.0% Adults <6.0% Children and Adolescents <7.5% Source: [employer]. Standards of medical care in diabetes,2017. Diabetes Care.2017:40 (suppl 1):S1-S135. 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, vulva documented in this encounter Additional Health Concerns Assessment Noted Time A fall risk assessment has been complete d for the patient 07/02/2024 11:08 AM EDT A Body Mass Index follow-up plan has been documented for the patient 07/02/2024 11:57 AM EDT documented as of this encounter Care Teams Helper Animal Laboratory Relationship Specialty Start Date End Date Cali Snyder APRN [address] [place] [address] PCP - General 01/09/24 Nico Moncada MD [address] [address] Referring Physician Cardiology 12/21/21 Elba Alves DO On license of [facility] [address] [address] Resident 06/13/24 documented as of this encounter
--- OUTSIDE RECORDS SUMMARY | 2024-08-02 15:30 | XMS_ITS | Encounter Summary ---
Author Organization [facility] Address [address] [place] [address] Care Team Providers Care Clinical Documentation Improvement Specialist Name Role Phone Nico Moncada MD Unavailable [phone] Cali Snyder APRN Primary Care Provider [phone] Elba Alves DO Unavailable [phone] Encounter Details Date Type Department Care Team (Late st Contact Info) Description 08/02/2024 3:30 PM EDT Pre-Admission Testing [facility] [address] [place] [id number] Anesthesia Record Procedure Summary Procedure Name Responsible Anesthesiologist Anesthesia Start Time Anesthesia Stop Time SPV Gely Major, [place], DNP 08/09/24 151 1 08/09/24 1626 Events Date Time Event Comment 08/09/2024 1511 An Start The patient was reevaluated immediately before sedation and remains eligible for anesthesia plan. 1514 In Room 1514 An Start Data 1518 An Induction The patient was reevaluated immediately before moderate or deep sedation use and before anesthesia induction. 1519 An Intubation 1519 Anesthesia Ready 1547 Proc Start 1610 Proc Fin 1610 An Extubation 1614 an stop data 1615 Out of Room 1618 Handoff to Receiving I compl eted my handoff to the receiving clinician during which we: 1. Identified the patient 2. Identified the responsible provider 3. Reviewed the pertinent medical history 4. Discussed the surgical course 5. Reviewed intra-op anesthesia management and issues during anesthesia 6. Set expectations for post-procedure period 7. Allowed opportunity for questions and acknowledgement of understanding. 1626 An Stop Meds * Agents No agents on file. * Blood No blood administrations on file. Lines, Drains, and Airways Type Details Placement Removal Wound 12/09/21; 0949; N; Y es; Incision; Sternum; Anterior; 08/09/24; 1741; Healed 12/09/21 0949 by Maddison Murillo 08/09/24 174 by Berkley Armstrong RN Peripheral IV Placement Date: 07/20 05/15; Placement Time: 145; Catheter Size: 20 G; Orientation: Posterior, Right; Location: Forearm; Site Prep: Chlorhexidine ; Local Anesth: None; Technique: Anatomical landmarks; Inserted by: Tej GONZALES RN; Insertion Attempts: 1; Patient Tolerance: Tolerated well; Removal Date: 08/09/24; Removal Time: 1740; Removal Reason: Discharge 08/09/24 1458 by Sigrid Gonzales RN 08/09/24 174 by Berkley Armstrong RN Supraglottic Airway Placement Date: 07/20 05/15; Placement Time: 151 (created via procedure documentation); Mask Ventilation: 0; Comments: Atraumatic. No change to dentition or lips from preop assessment.; Removal Date: 08/09/24; Removal Time: 1610 08/09/24 1519 by Gely Major CRNA, DNP 08/09/24 1610 by Gely Major CRNA, DNP documented in this encounter Social History Tobacco Use Types Packs/Day Years [...] on file documented as of this encounter Miscellaneous Notes * PAT Evaluation Note - Karissa Paris, JUANJOSE - 08/02/2024 3:30 PM EDT Images from the original note were not included. KARL Worley is a 73 y.o. 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 PMH COPD, GERD, RA, HTN Medical History[1] Family History[2] Social History[3] SURGICAL HISTORY: Surgical History[4] Allergies[5] MEDICATIONS: Current Outpatient Medications: albuterol, INHALE 2 PUFFS BY MOUTH EVERY 4 TO 6 HOURS NEEDED FOR SHORTNESS OF BREATH OR WHEEZING alendronate, Take 1 tablet by mouth every 7 days. On Sundays aspirin, Chew 1 tablet daily. atorvastatin, daily. BIOTIN PO, Take by mouth. Breo Ellipta, INHALE 1 PUFF BY MOUTH DAILY cholecalciferol, daily. estradiol, USING FINGER TECHNIQUE DAILY FOR 2 WEEKS AND THEN TWICE WEEKLY VAGINALLY fluticasone, SHAKE LIQUID AND USE 1 SPRAY IN EACH NOSTRIL DAILY NEEDED FOR ALLERGY SYMPTOMS hydroxychloroquine, Take 1 tablet (200 mg) by mouth 1 (one) time each day. metoprolol tartrate, Take 0.5 tablets by mouth 2 times a day. oxybutynin XL, Take 1 tablet by mouth daily. pramipexole, TAKE 1 TABLET BY MOUTH NIGHTLY FOR RESTLESS LEGS Xeljanz XR, Take 1 tablet by mouth 1 (one) time each day. Multiple Vitamin (MULTIVITAMINS PO), Take by mouth. (Patient not taking: Reported on 07/31/2024) iemmizue-zkdslcduo-qjvonucfeyelg, ondansetron, Take 1 tablet by mouth every 8 hours as needed for nausea or vomiting. (Patient not taking: No sig reported) predniSONE, Take 3 tablets for 5 days, then take 2 tablets for 5 days, then take 1 tablet for 5 days. 03/2024 ROS Anesthesia: Date of last anesthetic: 12/09/2021@ Removal Sternal Wire and zip ties Final Endotracheal Airway: ETTCormack-Lehane Classification: grade I - full view of glottisTechnique Used For Successful Placement: direct laryngoscopyDevices/Methods Used in Placement: intubating stylet, cricoid pressureInsertion Site: oralBlade Type: MacintoshBlade Size: 3ETT Size (mm): 6.0Number of Attempts at Approach: 2 NO Anesthesia history of previous anesthesia. Does not have a history of anesthetic complications, obstructive sleep apnea and PONV. Cardiovascular: atrial fibrillation (PAF post op CABG), CAD (2019 CABG x1 v), dyspnea (on exertion), hyperlipidemiaand PVD. Does not have angina, carotid artery disease, dysrhythmias, murmur, orthopnea, pacemaker, past FL, syncope or valvular heart disease. hypertension: Exercise tolerance is 1 flight of stairs. Cardio additional comments: Card records scanned into [employer] 04/18/2024 Card note f/u stable from CV standpoint continue current tx f/u 6 months with Echo HX of CABG X [address] Delgado 2019 & then wire removal 08/2021 Echo - EF 55%, mild MR and TR. (upper denture).Hep C, treated and cleared several years ago). . Respiratory: allergic rhinitis (seasonal). Patient has dyspnea (on exertion).no asthma: COPD: breathing at baseline.Has not had an upper respiratory infection in last 30 days. Has not had COVID in the last 30 days. HEENT: difficulty swallowing (occasional with certain foods) and missing teeth (upper denture).Does not have chipped teeth or loose teeth. Neurological: Does not have headaches. no seizures: Did not have a cerebrovascular accident. Musculoskeletal: arthritis. Does not have cervical spine limited mobility. Autoimmune: rheumatoid arthritis. Integumentary: Negative skin ROS. Gastrointestinal: GERD (occasional tums):Does not have hernia. Does not have cirrhosis. Genitourinary: Does not have chronic renal disease.Does not have renal calculi or renal disease. Hematological/Lymphatic: Does not have anemia. History of no DVT. History of no pulmonary embolism. no history of chemotherapy no history of radiation Does not have HIV, MRSA or tuberculosis. Endocrine/Metabolic: does not have diabetes mellitus. Does not have thyroid disorder. Does not have a history of chronic steroid use. Does not have gout. Lab Results Component Value Date WBC 5.85 07/31/2024 HGB 13.0 07/31/2024 HCT 38.5 07/31/2024 MCV 87 07/31/2024 PLT 175 07/31/2024 Lab Results Component Value Date GLUCOSE 90 07/31/2024 BUN 12 07/31/2024 CREATININE 0.86 07/31/2024 BCR 14 07/31/2024 NA 138 07/31/2024 K 4.1 07/31/2024 CL 104 07/31/2024 CO2 26 07/31/2024 CA 9.2 02/29/2020 ALBUMIN 4.2 07/31/2024 ALKPHOS 63 07/31/2024 BILITOT 0.3 07/31/2024 Lab Results Component Value Date HGBA1C 5.3 07/31/2024 Lab Results Component Value Date INR 1.8 (H) 12/26/2019 INR 1.0 12/19/2015 INR 07/01/2015 0.9 (NOTE) OPTIMAL INR RANGES FOR PATIENT ON ORAL ANTICOAGULANT THERAPY Prevention of venous thromboembolism INR 2.0 to 3.0 In patients with heart disease: Atrial fibrillation INR 2.0 to 3.0 Valvular heart disease INR 2.0 to 3.0 Tissue heart valves INR 2.0 to 3.0 Mechanical prosthetic valves INR 2.5 to 3.5 Prevention of recurrent FL INR 2.5 to 3.5 Visit Vitals OB Status Postmenopausal Smoking Status Former Physical Exam Anesthesia Plan ASA 3 Anesthesia technique(s) discussed with the patient/family: general Comment: Avi phone screen Karissa Paris APRN [1] Past Medical History: Diagnosis Date COPD (chronic obstructive pulmonary disease) (CMS/HCC) COVID-19 11/13/2021 Heart disease Hepatitis C Personal history of other diseases of the digestive system History of gallstones Personal history of other diseases of the musculoskeletal system and connective tissue History of osteoporosis Rheumatoid arthritis (CMS/HCC) Skin cancer UTI (urinary tract infection) UTI (urinary tract infection) [2] Family History Problem Relation Name Age of Onset Cardiac disorder Mother Crohn's disease Mother Hepatitis Mother Cardiac disorder Father Diabetes Father Hypertension Father Liver disease Father Anxiety disorder Sibling Conversions - Other Sibling Bipolar disorder (manic depression) Addiction problem Sibling Cardiac disorder Sibling Depression Sibling Anesthesia problems Neg Hx Malig Hyperthermia Neg Hx [3] Social History Tobacco Use Smoking status: Former Current packs/day: 0.00 Average packs/day: 1 pack/day for 16.0 years (16.0 ttl pk-yrs) Types: Cigarettes Start date: 2003 Quit date: 2019 Years since quittin.3 Passive exposure: Past Smokeless tobacco: Never Vaping Use Vaping status: Never Used Substance Use Topics Alcohol use: Never Drug use: Never Comment: Drug use: No drug use [4] Past Surgical History: Procedure Laterality Date CARDIAC CATHETERIZATION N/A CATARACT EXTRACTION N/A CORONARY ARTERY BYPASS GRAFT N/A 12/25/2019 CABG x 1 - AGUILAR to LAD (Dr Jose Delgado) LEG SURGERY N/A STERNAL WIRES REMOVAL 12/09/2021 Dr Jose Delgado - [facility] TUBAL LIGATION N/A [5] Allergies Allergen Reactions Cephalexin Hives Acetaminophen Unknown - Patient states they do not know rxn details Naproxen Other - please document in the comment field and Unknown - Patient states they do not knowrxn details * Preprocedure Instructions - Karissa Paris APRN - 08/02/2024 3:30 PM EDT Home Medication Instructions Current Medications Medication Instructions albuterol 108 (90 Base) MCG/ACT inhaler Take as needed alendronate (Fosamax) 70 MG tablet Hold day of surgery ASPIRIN 81 MG chewable tablet Take morning of surgery atorvastatin (Lipitor) 20 MG tablet Take morning of surgery BIOTIN PO Hold day of surgery Breo Ellipta 100-25 MCG/INH inhaler Take morning of surgery cholecalciferol (Vitamin D-3) 25 MCG (1000 UT) capsule Hold day of surgery estradiol (Estrace) 0.1 MG/GM vaginal cream Hold day of surgery fluticasone (Flonase) 50 MCG/ACT nasal spray Take morning of surgery hydroxychloroquine (Plaquenil) 200 MG tablet Take morning of surgery metoprolol tartrate (Lopressor) 25 MG tablet Take morning of surgery oxybutynin XL (Ditropan-XL) 10 MG 24 hr tablet Take morning of surgery pramipexole (Mirapex) 0.125 MG tablet Take night before surgery Tofacitinib Citrate ER (Xeljanz XR) 11 MG tablet sustained-release 24 hour Hold 7 days before surgery No food after midnight the night before surgery. You can drink clear liquids up to 2 hours prior to arrival. Please do not try to get all your hydration in 2 hours prior to arrival. Start the day before surgery drinking more than you usually would.After midnight, you can have clear liquids only (water, apple juice, Gatorade) up to 2 hours prior to arrival. No coffee or tea. General Preoperative Instructions You will be called the day before surgery with your arrival time Do not eat or drink anything after midnight except water with your medications unless other instructions are given No alcohol or smoking prior to surgery Arrive on time to avoid delays Parking/Registration procedure explained You MUST have a responsible adult available for transport to and from hospital Visitation policy for the day of surgery reviewed Bring insurance card, photo ID, along with power of assistant prosecuting attorney, guardianship or advanced directives if applicable Do not bring money, jewelry or other valuables Hibiclens bathing instructions reviewed if applicable Notify surgeon of fever, illness, any changes or if you decide not to have surgery Pediatric patients under 12 years of age (If applicable) No solid food or milk after midnight Formula 6 hours prior to arrival for surgery Breast milk 4 hours prior to arrival surgery Clear liquids 2 hours prior to arrival for surgery Diabetes Instructions (If applicable) Take diabetes medication as instructed You may have up to 4 ounces of apple juice 2 hours prior to arrival for surgery for low glucose documented in this encounter Plan of Treatment Upcoming Encounters Date Type Department Care Team (Late st Contact Info) Description 10/01/2024 9:20 AM EDT Appointment [facility] [address] [place] [address] 10/01/2024 10:15 AM EDT Office Visit [facility] [address] [place] [address] Candido Fitzgerald MD [address] [place] [id number] 01/01/2025 9:40 AM EDT Office Visit [facility] Gynecology [address] [place] [address] Mark Zurita MD [address] [place] [address] 01/21/2025 12:50 PM EST Office Visit [facility] [address] [place] [address] Lisa Leon, JUANJOSE [address] [place] [address] documented as of this encounter Visit Diagnoses Not on filedocumented in this encounter Additional Health Concerns Assessment Noted Time A fall risk assessment has been complete d for the patient 07/02/2024 11:08 AM EDT A Body Mass Index follow-up plan has been documented for the patient 07/02/2024 11:57 AM EDT documented as of this encounter Care Teams Clinical Documentation Improvement Specialist Relationship Specialty Start Date End Date Cali Snyder, SYSTEM VALIDATION ENGINEER [address] [place] [address] PCP - General 01/09/24 Nico Moncada MD [address] [place] [address] Referring Physician Cardiology 12/21/21 Elba Alves DO [address] [place] [id number] Resident 06/13/24 documented as of this encounter
--- OUTSIDE RECORDS SUMMARY | 2024-08-09 13:19 | XMS_ITS | Encounter Summary ---
Author Organization Healthcare Address 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] Procedures SD PART SIMPLE REMV VULVA SPV Venancio Duran MD [address] [place] [address] Elmo [address]hal[address]wal [address] [address] Phone: tel: fax: [facility] [address] [place] [phone] Phone: tel: Referral ID Status Reason Start Date Expiration Date Visits Re quested Visits Authorized [id number] 1 1 Encounter Details Date Type Department Care Team (Late st Contact Info) Description 08/09/2024 1:19 PM EDT - 08/09/2024 6:00 PM EDT Hospital Encounter [facility] [address] [place] [phone] Venancio Duran MD [facility] Elmo Dhaliwal [address] [address] Severe vulvar dysplasia, histologically confirmed Discharge Disposition: Home or Self Care Social History Tobacco Use Types Packs/Day Years [...] Sign Reading Time Taken Comments Blood Pressure 112/71 08/09/2024 5:15 PM EDT Pulse 62 08/09/2024 5:15 PM EDT Temperature 36.2 C (97.2 F) 08/09/2024 5:00 PM EDT Respiratory Rate 23 08/09/2024 5:15 PM EDT Oxygen Saturation 94% 08/09/2024 5:15 PM EDT Inhaled Oxygen Concentration - - Weight - - Height - - Body Mass Index - - documented in this encounter Functional Status * [...] Joseph Orozco documented as of this encounter Discharge Instructions * Discharge Instructions* Jay Jay Segundo MD - 08/09/2024 4:31 PM EDT POST-OP INSTRUCTIONS PAIN MANAGEMENT Take your oral pain medications as directed. You should take Ibuprofen 600 mg tab every 6 hours along with Tylenol 1000 mg every 6 hours. (alternate between the two medications every 3 hours to increase the pain coverage) If your pain is uncontrolled on the above medications you may add Oxycodone 5 mg tab(s) every 4 hours as needed for pain After 72 hours (3 days) you may decrease the Ibuprofen and tylenol to an as needed medication, however if you are still requiring use of the Oxycodone 5mg tab you should continue to take the Ibuprofen as scheduled. INCISION CARE: The incision (vaginal area included) may be washed with soap and water. After showering or washing gently, pat the incision dry with a clean towel. A dressing is not necessary, but may be desirable to protect your clothing, as there may be minimal amount of drainage. Stitches do not need to be removed; they will dissolve in about six weeks. Itching, bruising, a pulling sensation, and or numbness around the incision is normal. If your incision becomes hot, red, swollen, or persistently painful, please contact the office. Apply Bacitracin to the incision twice a day for 1-2 weeks Showers only. No tub baths or submersion in water of any kind until incision heals. WHEN TO CALL YOUR DOCTOR: Fever (>100.4 F or 38.0 C) or chills. Incision problems such as redness, warmth, swelling, or foul smelling drainage. Severe nausea or persistent vomiting. Bright red vaginal bleeding (soaking >1 pad/hour) or foul smelling vaginal drainage. Severe pain not relieved with pain medications. Pain and swelling in your legs, especially if it is only on one side and not the other. Pain with urination, cloudy urine, or foul smelling urine. Or if you have any other problems or questions. CALL 911 OR GO TO THE EMERGENCY ROOM IF YOU HAVE: Any shortness of breath, difficulty breathing, orchest pain. POST-OP APPT: Future Appointments Date Time Provider Department Center 08/29/2024 11:00 AM Venancio Duran MD [facility] 09/17/2024 3:20 PM Lisa Leon APRN [facility] 10/01/2024 9:[address] [facility] 10/01/2024 10:15 AM Candido Fitzgerald [facility] Ilya Please call [phone] if you need to reschedule. documented in this encounter Medications at Time of Discharge albuterol 108 (90 Base) MCG/ACT inhaler INHALE 2 PUFFS BY MOUTH EVERY 4 TO 6 HOURS NEEDED FOR SHORTNESS OF BREATH OR WHEEZING 10/02/2020 alendronate (Fosamax) 70 MG tablet Take 1 tablet by mouth every 7 days. On Sundays06/23/2020 ASPIRIN 81 MG chewable tablet Chew 1 tablet daily. atorvastatin (Lipitor) 20 MG tablet daily. 09/08/2020 BIOTIN PO Take by mouth. cholecalciferol (Vitamin D-3) 25 MCG (1000 UT) capsule daily. 10/25/2019 estradiol (Estrace) 0.1 MG/GM vaginal cream USING FINGER TECHNIQUE DAILY FOR 2 WEEKS AND THEN TWICE WEEKLY VAGINALLY 10/17/2023 fluticasone (Flonase) 50 MCG/ACT nasal spray SHAKE LIQUID AND USE 1 SPRAY IN EACH NOSTRIL DAILY NEEDED FOR ALLERGY SYMPTOMS 03/29/2024 metoprolol tartrate (Lopressor) 25 MG tablet Take 0.5 tablets by mouth 2 times a day. 03/05/2021 Multiple Vitamin (MULTIVITAMINS PO) Take by mouth. neomycin-polymyx in-dexamethasone (Maxitrol) 3.5-82872-4.1 ophthalmic suspension 09/05/2023 ondansetron (Zofran) 4 MG tablet Take 1 tablet by mouth every 8 hours as needed for nausea or vomiting. 03/29/2024 oxybutynin XL (Ditropan-XL) 10 MG 24 hr tablet Take 1 tablet by mouth daily. 10/18/2023 pramipexole (Mirapex) 0.125 MG tablet TAKE 1 TABLET BY MOUTH NIGHTLY FOR RESTLESS LEGS 07/07/2020 oxyCODONE (Roxicodone) 5 MG immediate release tablet Take 1 tablet by mouth every 6 hours as needed for moderate pain for up to 1 day. 3 tablet 08/09/2024 5 Breo Ellipta 100-25 MCG/INH inhaler INHALE 1 PUFF BY MOUTH DAILY 03/23/2021 5 hydroxychloroqui ne (Plaquenil) 200 MG tabletIndication s:Seropositive rheumatoid arthritis of multiple sites (CMS/HCC) Take 1 tablet (200 mg) by mouth 1 (one) time each day. 30 tablet 11 01/09/2024 5 predniSONE (Deltasone) 5 MG tablet Take 3 tablets for 5 days, then take 2 tablets for 5 days, then take 1 tablet for 5 days. 30 tablet 1 09/01/2023 5 Tofacitinib Citrate ER (Xeljanz XR) 11 MG tablet sustained-releas e 24 hourIndications: Seropositive rheumatoid arthritis of multiple sites (CMS/HCC) Take 1 tablet by mouth 1 (one) time each day. 30 tablet 3 04/25/2024 5 documented as of this encounter Miscellaneous Notes * Anesthesia PACU Signout - Sujey Vu MD - 08/09/2024 5:07 PM EDT Patient: Jacque Worley Anesthesia Type: general Vitals Value Taken Time BP 138/57 08/09/24 17:01 Temp 36.2 ??C (97.2 ??F) 08/09/24 17:00 Pulse 61 08/09/24 17:06 Resp 19 08/09/24 17:06 SpO2 96 % 08/09/24 17:06 Vitals shown include unfiled device data. Anesthesia PACU Signout Patient location during evaluation: PACU Patient participation: complete - patient participated Level of consciousness: awake Pain management: adequate (pain score 0-3) Airway patency: natural airway Hydration status: acceptable PONV: none Cardiovascular status: acceptable and hemodynamically stable Respiratory status: spontaneous ventilation, nonlabored ventilation, acceptable and room air Discharge Disposition: home Cosigned by James Boudreaux MD at 08/09/2024 5:51 PM EDT Associated attestation - James Boudreaux MD - 08/09/2024 5:51 PM EDT Patient seen and evaluated with the resident. I agree with resident evaluation and plan. Patient ready for discharge from PACU. * Op Note - [place], Venancio S, MD - 08/09/2024 2:45 PM EDT Operative Note Date: 08/09/24 Location: [facility] OR Name: Jacuqe Worley, : 1950, Diagnoses: Pre-op Diagnosis Severe vulvar dysplasia, histologically confirmed Post-op Diagnosis Severe vulvar dysplasia, histologically confirmed Procedure(s): Partial simple vulvectomy Attending Surgeon(s): * Venancio Duran - Primary Stockbroker(s): * Jay Jay Segnudo MD - Resident - Assisting Anesthesia: General ASA: III Blood Administration: Blood Product Administration History None Estimated Blood Loss: 5 mL Drains: * None in log * Specimen: Findings: 1 x 1 cm region of raised AWE on right perineal body Indications: Jacque Worley is an 73 y.o. female who is having surgery for Severe vulvar dysplasia, histologically confirmed. Narrative: After informed consent the patient was taken to the operating room. General endotracheal anesthesiawas induced without complications. She was then positioned in the lithotomy position using Quan stirrups. SCDs were placed on the lower extremities and prophylactic antibiotics were infused. She wasthen prepped and draped in the usual sterile fashion. A time out was performed to ensure the correct patient and procedure were noted. Acetic acid was applied to the vulva and the lesion demarcated. Findings were noted as above. A margin was drawn. Marcaine with epinephrine was injected under the lesion. A 15-blade scalpel was used to excise the margins. The lesion was then removed at the dermal layer using a combination of sharp dissection and cautery. The specimen was oriented and then sent to pathology. The base of the excision site was made hemostatic with cautery and irrigated. The defect was reapproximated with a combination of interrupted 3-0 Vicryl sutures placed in a vertical mattress and simple fashion as needed for good tissue support. Bacitracin ointment was placed over the incision and then a fluff dressing was applied. A sponge, needle, and instrument count was correct x 2. The patient was awakened from anesthesia and taken to the recovery room in good condition. There were no complications during the procedure. I was present for the entire case. There were NO signs of surgical site infection (SSI) present at the time of surgery (PATOS). Complications: None; patient tolerated the procedure well. Submitted by: Venancio Duran MD - 08/09/2024 * Interval H&P Note - Venancio Duran MD - 08/09/2024 2:39 PM EDT H&P reviewed. The patient was examined and there are no changes to the H&P. Source Note - Mark Zurita MD - 07/31/2024 10:30 AM EDT Images from the original note were not included. Chief Concern & History Of Present Illness Patient ID: Jacque Worley is a 73 y.o. female Referring Physician: Elba Alves DO [address] [address] [address] [id number] Primary Care Provider: Cali Snyder APRN History [...] SURGERY N/A STERNAL WIRES REMOVAL 12/09/2021 Dr oJse Delgado - [facility] TUBAL [...] WEEK ON SAME DAY EACH WEEK Aspirin Buf,UdPwma-DjGlrb-KnC, 81 MG tablet TAKE 1 TABLET DAILY. [...] mouth. (Patient not taking: Reported on 07/31/2024) ukxcqdxe-fcwjbrtsp-knklpzvjbyfyu (Maxitrol) 3.5-10989-5.1 ophthalmic suspension (Patient not taking: Reported on [...] nursing note reviewed. Exam conducted with a cut off sawyer shingle mill present. Constitutional: Appearance: Normal appearance. She is [...] saw and evaluated the patient with the medical/CHIEF DIVERSITY OFFICER/PA student. I discussed the case with the medical/CHIEF DIVERSITY OFFICER/PA student and agree with the findings and plan as documented. I personally performed the Examand Medical Decision Making. MD Mark Frederick MD Auto Damage Estimator BUDDY BURNETT [facility] GYNECOLOGY [address] [facility] [address] Dept: [phone] Dept Loc: [phone] documented in this encounter Plan of Treatment Upcoming Encounters Date Type Department Care Team (Late st Contact Info) Description 10/01/2024 9:20 AM EDT Appointment [facility] Radiology [address] [place] [phone] 10/01/2024 10:15 AM EDT Office Visit [facility] CC Head, Neck & Respiratory [address] [facility]nd [place] [phone] Candido Fitzgerald MD [address] [facility] [address] [place] [address] 01/01/2025 9:40 AM EDT Office Visit [facility] Gynecology [address] [facility] [address] [place] [address] Mark Zurita MD [address] [facility] [address] [place] [address] 01/21/2025 12:50 PM EST [facility] Visit [facility] [address] [place] [address] Lisa Leon, JUANJOSE [address] [place] [address] documented as of this encounter Procedures Procedure Name Priority Date/Time Associated Diagnosis Comments SURGICAL PATHOLOGY EXAM Routine 08/09/2024 3:58 PM EDT Severe vulvar dysplasia, histologically confirmed SD PART SIMPLE REMV VULVA 08/09/2024 2:59 PM EDT Severe vulvar dysplasia, histologically confirmed documented in this encounter Results * Surgical Pathology Exam (08/09/2024 3:58 PM EDT) Case Report Surgical Pathology Case: [id number] Authorizing Provider: Venancio Duran MD Collected: 08/09/2024 7488 Ordering Location: [facility] A OPERATING ROOM Received: 08/09/2024 1630 Pathologist: Jay Wong MD Specimen: Other (specify site), Perineal Body Lesion 08/15/2024 3:11 PM EDT [facility] Final Diagnosis A. VULVA, PERINEAL BODY LESION, EXCISION: - HIGH-GRADE SQUAMOUS INTRAEPITHELIAL LESION (HSIL, OLIVIA II, MODERATE DYSPLASIA). - THE HIGH-GRADE DYSPLASIA EXTENDS TO THE ANTERIOR AND POSTERIOR TIPS. 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 PERINEAL BODY LESION Received fresh and subsequently placed in formalin, labeled p erineal body lesion , consisting of a single oriented fragment of white dyson coarsely wrinkled skin, oriented by the surgeon sutured to a diagram on a red surgical towel, 1.6 cm from anterior to posterior by 1.6 cm from right lateral to left lateral, excised to a depth of 0.2 cm. The epidermal surface is remarkable for 2 white-dyson slightly raised areas of pallor: #1- 0.4 cm from anterior to posterior by 0.3 cm from right lateral left lateral, that is 0.2 cm from the right posterior margin, 0.4 cm to the left lateral margin, 0.6 cm from the left anterior margin, and 0.6 cm to the right anterior margin; #2- 0.3 cm from the right anterior margin, 0.5 cm to the right posterior margin, 0.2 cm to the left anterior margin, and 0.6 cm to the left posterior margin. The specimen is inked as follows: Right half-blue, left half-green. The specimen is serially sectioned from anterior to posterior, entirely submitted as follows: A1: Anterior tip A2: Anterior half including larger lesion A3: Posterior tip including both lesions A4: Posterior tip Cold Time: 32m DANIELLE Hassan (ASCP) 08/15/2024 3:11 PM EDT [facility] Note: A resident was involved in the service. I attest I examined the relevant preparations for the specimens and confirmed the diagnosis or interpretation. 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] us Venancio Duran MD LAB PATHOLOGY ORDERABLES F inal Result [facility] [address] [place] [address] documented in this encounter Visit Diagnoses Diagnosis Severe vulvar dysplasia, histologically confirmed Carcinoma in situ, vulva documented in this encounter Administered Medications Inactive Administered Medications - up to 3 most recent administrations Medication Order MAR Action Action Date Dose Rate Site fentaNYL (Sublimaze) injection 25 mcg 25 mcg, Intravenous, Every 5 min PRN, 2 doses, Starting on Brynn 08/09/24 at 1605, Until Brynn 08/09/24 at 1999, Routine, Recovery (Phase I only), pain score of 3-4 out of 10 fentaNYL (Sublimaze) injection 50 mcg 50 mcg, Intravenous, Every 5 min PRN, 2 doses, Starting on Brynn 08/09/24 at 1605, Until Brynn 08/09/24 at 2000, Routine, Recovery (Phase I only), pain score of 5-8 out of 10 HYDROmorphone (Dilaudid) injection 0.5 mg 0.5 mg, Intravenous, Every 10 min PRN, 2 doses, Starting on Brynn 08/09/24 at 1605, Until Brynn 08/09/24 at 2000, Routine, Recovery (Phase I only), pain score of 9-10 out of 10 ipratropium-albuterol (Duo-Neb) 0.5-2.5 mg/3 mL nebulizer solution 3 mL 3 mL, Nebulization, Once as needed, 1 dose, Starting on Brynn 08/09/24 at 1605, Until Brynn 08/09/24 at 1999, Routine, Recovery (Phase I only), shortness of breath naloxone (Narcan) injection 0.4 mg 0.4 mg, Intravenous, As needed, Starting on Brynn 08/09/24 at 1605, Until Brynn 08/09/24 at 1999, Routine, Recovery (Phase I only), respiratory depression ondansetron (Zofran) injection 4 mg 4 mg, Intravenous, Once as needed, 1 dose, Starting on Brynn 08/09/24 at 1605, Until Brynn 08/09/24 at 1999, Routine, Recovery (Phase I only), nausea, vomiting oxyCODONE (Roxicodone) immediate release tablet 10 mg 10 mg, Oral, Once as needed, 2 doses, Starting on Brynn 08/09/24 at 1605, Until Brynn 08/09/24 at 1999, Routine, Recovery (Phase I only), pain score of 6-8 out of 10 oxyCODONE (Roxicodone) immediate release tablet 5 mg 5 mg, Oral, Once as needed, 2 doses, Starting on Brynn 08/09/24 at 1605, Until Brynn 08/09/24 at 1999, Routine, Recovery (Phase I only), pain score of 3-5 out of 10 Povidone-Iodine 5 % swab solution 1 Application Nasal, Once, 1 dose, On Brynn 08/09/24 at 1500, Routine Given 08/09/2024 3:04 PM EDT 1 Application sodium chloride 0.9 % flush 10 mL 10 mL, Intravenous, Every 12 hours, First dose on Brynn 08/09/24 at 1500, Until Discontinued, Routine, Holding - Preprocedure Given 08/09/2024 3:04 PM EDT 10 mL sodium chloride 0.9 % flush 10 mL 10 mL, Intravenous, As needed, Starting on Brynn 08/09/24 at 1406, Until Brynn 08/09/24 at 1999, Routine, Holding - Preprocedure, line care documented in this encounter Active and Recently Administered Medications Times are shown in EDT. Scheduled Medication Order 08/07/2024 08/08/2024 08/09/2024 Povidone-Iodine 5 % swab solution 1 Application (COMPLETED) Nasal, Once, 1 dose, On Brynn 08/09/24 at 1500, Routine 1504 (Given - Provid er: Elmo Gonzales RN) sodium chloride 0.9 % flush 10 mL(Linked Group 1) 10 mL, Intravenous, Every 12 hours, First dose on Brynn 08/09/24 at 1500, Until Discontinued, Routine, Holding - Preprocedure 1504 (Given - Provid er: Elmo Gonzales RN) PRN Medication Order 08/07/2024 08/08/2024 08/09/2024 acetic acid (bulk) external solution (CANCELED) As needed, Starting on Brynn 08/09/24 at 1601, Until Brynn 08/09/24 at 1615, Routine 1601 (Given - Provid er: Venancio Duran MD) bupivacaine-EPINEPHrine PF (Marcaine w/EPI) 0.5% -1:212338 injection (CANCELED) As needed, Starting on Brynn 08/09/24 at 1603, Until Brynn 08/09/24 at 1615, Routine, Intraprocedure 1603 (Given - Provid er: Venancio Duran MD) fentaNYL (Sublimaze) injection 25 mcg 25 mcg, Intravenous, Every 5 min PRN, 2 doses, Starting on Brynn 08/09/24 at 1605, Until Brynn 08/09/24 at 2000, Routine, Recovery (Phase I only), pain score of 3-4 out of 10 fentaNYL (Sublimaze) injection 50 mcg 50 mcg, Intravenous, Every 5 min PRN, 2 doses, Starting on Brynn 08/09/24 at 1605, Until Brynn 08/09/24 at 2000, Routine, Recovery (Phase I only), pain score of 5-8 out of 10 HYDROmorphone (Dilaudid) injection 0.5 mg 0.5 mg, Intravenous, Every 10 min PRN, 2 doses, Starting on Brynn 08/09/24 at 1605, Until Brynn 08/09/24 at 2000, Routine, Recovery (Phase I only), pain score of 9-10 out of 10 ipratropium-albuterol (Duo-Neb) 0.5-2.5 mg/3 mL nebulizer solution 3 mL 3 mL, Nebulization, Once as needed, 1 dose, Starting on Brynn 08/09/24 at 1605, Until Brynn 08/09/24 at 1999, Routine, Recovery (Phase I only), shortness of breath naloxone (Narcan) injection 0.4 mg 0.4 mg, Intravenous, As needed, Starting on Brynn 08/09/24 at 1605, Until Brynn 08/09/24 at 1999, Routine, Recovery (Phase I only), respiratory depression ondansetron (Zofran) injection 4 mg 4 mg, Intravenous, Once as needed, 1 dose, Starting on Brynn 08/09/24 at 1605, Until Brynn 08/09/24 at 1999, Routine, Recovery (Phase I only), nausea, vomiting oxyCODONE (Roxicodone) immediate release tablet 10 mg(Linked Group 2) 10 mg, Oral, Once as needed, 2 doses, Starting on [facility] 08/09/24 at 1605, Until Brynn 08/09/24 at 1999, Routine, Recovery (Phase I only), pain score of 6-8 out of 10 oxyCODONE (Roxicodone) immediate release tablet 5 mg(Linked Group 2) 5 mg, Oral, Once as needed, 2 doses, Starting on Brynn 08/09/24 at 1605, Until Brynn 08/09/24 at 1999, Routine, Recovery (Phase I only), pain score of 3-5 out of 10 sodium chloride 0.9 % flush 10 mL(Linked Group 1) 10 mL, Intravenous, As needed, Starting on Brynn 08/09/24 at 1406, Until Brynn 08/09/24 at 1999, Routine, Holding - Preprocedure, line care Linked Groups Order Group 1: Insert peripheral IV (CANCELED) Once, On Brynn 08/09/24 at 1407, For 1 occurrence, Holding - Preprocedure And Saline lock IV (CANCELED) Once, On Brynn 08/09/24 at 1407, For 1 occurrence, Holding - Preprocedure And sodium chloride 0.9 % flush 10 mLJump to med 10 mL, Intravenous, Every 12 hours, First dose on Brynn 08/09/24 at 1500, Until Discontinued, Routine, Holding - Preprocedure And sodium chloride 0.9 % flush 10 mLJump to med 10 mL, Intravenous, As needed, Starting on Brynn 08/09/24 at 1406, Until Brynn 08/09/24 at 1999, Routine, Holding - Preprocedure, line care Group 2: oxyCODONE (Roxicodone) immediate release tablet 5 mgJump to med 5 mg, Oral, Once as needed, 2 doses, Starting on Brynn 08/09/24 at 1605, Until Brynn 08/09/24 at 1999, Routine, Recovery (Phase I only), pain score of 3-5 out of 10 Or oxyCODONE (Roxicodone) immediate release tablet 10 mgJump to med 10 mg, Oral, Once as needed, 2 doses, Starting on Brynn 08/09/24 at 1605, Until Brynn 08/09/24 at 1999, Routine, Recovery (Phase I only), pain score of 6-8 out of 10 documented in this encounter Additional Health Concerns Assessment Noted Time A fall risk assessment has been complete d for the patient 07/02/2024 11:08 AM EDT A Body Mass Index follow-up plan has been documented for the patient 07/02/2024 11:57 AM EDT documented as of this encounter Care Teams Commercial Underwriter Relationship Specialty Start Date End Date Cali Snyder APRN [address] [place] [address] PCP - General 01/09/24 Nico Moncada MD [address] [place] [id number] Referring Physician Cardiology 12/21/21 Elba Alves DO [address] [place] [id number] Resident 06/13/24 documented as of this encounter
--- OUTSIDE RECORDS SUMMARY | 2024-08-09 14:45 | XMS_ITS | Encounter Summary ---
Author Organization Healthcare Address 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] Procedures AR PART SIMPLE REMV VULVA SPV Venancio Duran MD [address] [place] [address] Elmo Dhaliwal [address] [address] Phone: tel: fax: [facility] [address] [place] [address] Phone: tel: Referral ID Status Reason Start Date Expiration Date Visits Re quested Visits Authorized [id number] 1 1 Encounter Details Date Type Department Care Team (Late st Contact Info) Description 08/09/2024 2:45 PM EDT - 08/09/2024 4:45 PM EDT Surgery [facility] [address] [place] [address] Venancio Duran MD [address] [place] [address] [address] Dhal[address]wal [address] [address] SPV [[id number] (CPT )] Surgery Details Date/Time Status Location OR Service Patient Class Case Class Case Type Trauma Case? 08/09/2024 2:45 PM Posted [facility] On[facility] Outpatient Surgery E-Electi ve Panel 1 Procedure LRB Anes Op Region Wound Class Comments SPV N/A General Class II/ Clean Cont aminated Surgeon Surgeon Role Service Panel Jay Jay Segundo Resident - Assisting 1 Venancio Duran MD Primary Gynecologic Oncol ogy 1 documented in this encounter Social History Tobacco [...] Sign Reading Time Taken Comments Blood Pressure 139/55 08/09/2024 4:45 PM EDT Pulse 63 08/09/2024 4:45 PM EDT Temperature 35.6 C (96.1 F) 08/09/2024 4:20 PM EDT Respiratory Rate 21 08/09/2024 4:45 PM EDT Oxygen Saturation 97% 08/09/2024 4:45 PM EDT Inhaled Oxygen Concentration - - [...] APPT: Future Appointments Date Time Provider Department [place] 08/29/2024 11:00 AM Venancio [facility] 09/17/2024 3:20 PM Lisa Leon Gregorio, BRUSH MACHINE SETTER [facility] 10/01/2024 9:[address] [facility] 10/01/2024 10:15 AM Candido Fitzgerald MD [facility]NR[facility]INA Carab[facility] Please call [phone] if you need to reschedule. documented in [...] PO) Take by mouth. neomycin-polymyx in-dexamethasone (Maxitrol) 3.5-62999-7.1 ophthalmic suspension 09/05/2023 ondansetron (Zofran) 4 MG [...] discharge from PACU. * Op Note - Venancio Duran MD - 08/09/2024 2:45 PM EDT Operative Note Date: 08/09/24 Location: [facility] OR Name: Jacque Worley, : 1950, Diagnoses: Pre-op Diagnosis Severe vulvar dysplasia, histologically confirmed Post-op Diagnosis Severe vulvar dysplasia, histologically confirmed Procedure(s): Partial simple vulvectomy Attending Surgeon(s): * Venancio Duran - Primary Metallurgy Laboratory Technician(s): * Jay Jay Segundo MD - Resident - Assisting Anesthesia: General [...] female Referring Physician: Elba Alves DO [address] [place] [address] Primary Care Provider: Cali Snyder APRN History [...] & then wire removal 2021 Last Pap: -2025 Negative & Negative HR HPV DNA Review of Systems Constitutional: Negative. Respiratory: Negative. Cardiovascular: Negative. Gastrointestinal: Negative. Genitourinary: Healed BX site Psychiatric/Behavioral: Negative. Patient's Oncology History documentation Oncology History No history exists. History: [Medical History] [Medical History] Past Medical History Diagnosis Date COPD (chronic obstructive pulmonary disease) ([facility]) COVID-19 11/13/2021 Heart disease Hepatitis C Personal history of other diseases of the digestive system History of gallstones Personal history of other diseases of the musculoskeletal system and connective tissue History of osteoporosis Rheumatoid arthritis ([facility]) Skin cancer UTI (urinary tract infection) UTI (urinary tract infection) [Surgical History] [Surgical History] Past Surgical History Procedure Laterality Date CARDIAC CATHETERIZATION N/A CATARACT EXTRACTION N/A CORONARY ARTERY BYPASS GRAFT N/A 12/25/2019 CABG x 1 - AGUILAR to LAD (Dr Jose Delgado) LEG SURGERY N/A STERNAL WIRES REMOVAL 12/09/2021 Dr Jose Delgado - [facility] TUBAL LIGATION N/A [Allergies] [Allergies] Allergen Reactions [...] WEEK ON SAME DAY EACH WEEK Aspirin Buf,KkVvjm-OoCrld-RwQ, 81 MG tablet TAKE 1 TABLET DAILY. [...] mouth. (Patient not taking: Reported on 07/31/2024) ysfqjqpq-dzmduwepf-geqxomyyeudck (Maxitrol) 3.5-09384-9.1 ophthalmic suspension (Patient not taking: Reported on [...] nursing note reviewed. Exam conducted with a complaint analyst present. Constitutional: Appearance: Normal appearance. She is [...] saw and evaluated the patient with the medical/MANAGER DIABETES/PA student. I discussed the case with the medical/MANAGER DIABETES/PA student and agree with the findings and plan as documented. I personally performed the Examand Medical Decision Making. MD Mark Frederick MD Algorithm Developer [facility] GYNECOLOGY [address] [facility] [address] [facility] [address] Dept: [phone] Dept Loc: [phone] documented in this encounter Plan of Treatment Upcoming Encounters Date Type Department Care Team (Late st Contact Info) Description 10/01/2024 9:20 AM EDT Appointment [facility] Radiology [address] [place] [phone] 10/01/2024 10:15 AM EDT Office Visit [facility] Head[facility] Neck & Respiratory [address] [facility], [address]nd [place] [address] Candido Fitzgerald MD [address] [facility] [address] [place] [address] 01/01/2025 9:40 AM EDT Office Visit [facility] Gy[facility] [address] [facility] [address] [place] [address] Mark Zurita MD [address] [facility] El[address] Dhaliwal [facility] [address] [place] [address] 01/21/2025 12:50 PM EST Office Visit [place] [facility] [address] [place] [phone] Lisa Leon, BRUSH MACHINE SETTER [address] [place] [address] documented as of this encounter Procedures Procedure Name Priority Date/Time Associated Diagnosis Comments SURGICAL PATHOLOGY EXAM Routine 08/09/2024 3:58 PM EDT Severe vulvar dysplasia, histologically confirmed AR PART SIMPLE REMV VULVA 08/09/2024 2:59 PM EDT Severe vulvar dysplasia, histologically confirmed documented in this encounter Results * Surgical Pathology Exam (08/09/2024 3:58 PM EDT) Case Report Surgical Pathology Case: [id number] Authorizing Provider: Venancio Duran MD Collected: 08/09/2024 1558 Ordering Location: [facility] A OPERATING ROOM Received: 08/09/2024 1630 Pathologist: Jay Wong MD Specimen: Other (specify site), Perineal Body Lesion 08/15/2024 3:11 PM EDT [facility] Final Diagnosis A. VULVA, PERINEAL BODY LESION, EXCISION: - HIGH-GRADE SQUAMOUS INTRAEPITHELIAL LESION (HSIL, OLIVIA II, MODERATE DYSPLASIA). - THE HIGH-GRADE DYSPLASIA EXTENDS TO THE ANTERIOR AND POSTERIOR TIPS. 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 PERINEAL BODY [...] DANIELLE Hassan (ASCP) 08/15/2024 3:11 PM EDT [facility] Note: A resident was involved in the service. I attest I examined the relevant preparations for the specimens and confirmed the diagnosis or interpretation. 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] Venancio Duran MD LAB PATHOLOGY ORDERABLES F inal Result [facility] [address] [place] [address] documented in this encounter Visit Diagnoses Diagnosis Severe vulvar dysplasia, histologically confirmed Carcinoma in situ, vulva Severe vulvar dysplasia, histologically confirmed Carcinoma in situ, vulva documented in this encounter Administered Medications Inactive Administered Medications - up to 3 most recent administrations Medication Order MAR Action Action Date Dose Rate Site acetic acid (bulk) external solution As needed, Starting on Brynn 08/09/24 at 1601, Until Brynn 08/09/24 at 1615, Routine Given 08/09/2024 4:01 PM EDT 30 mL Other bupivacaine-EPINEPHrine PF (Marcaine w/EPI) 0.5% -1:[id number] injection As needed, Starting on Brynn 08/09/24 at 1603, Until Brynn 08/09/24 at 1615, Routine, Intraprocedure Given 08/09/2024 4:03 PM EDT 10 mL fentaNYL (Sublimaze) injection 25 mcg 25 mcg, [...] Once as needed, 1 dose, Starting on Rbynn 08/09/24 at 1605, Until Brynn 08/09/24 at [...] 08/09/24 at 1406, Until Brynn 08/09/24 at 2000, Routine, Holding - Preprocedure, line care documented [...] Duran MD) bupivacaine-EPINEPHrine PF (Marcaine w/EPI) 0.5% -1:801657 injection (CANCELED) As needed, Starting on Brynn [...] documented as of this encounter Care Teams Slag Wheeler Relationship Specialty Start Date End Date Cali Snyder APRN [address] [phone] PCP - General 01/09/24 Nico Moncada MD [address] [address] Referring Physician Cardiology 12/21/21 Elba Alves DO [facility] [address] [address] Resident 06/13/24 documented as of this encounter
--- OUTSIDE RECORDS SUMMARY | 2024-08-09 15:11 | XMS_ITS | Encounter Summary ---
Author Organization Healthcare Address [address] 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] Procedures LA PART SIMPLE REMV VULVA SPV Venancio Duran MD [address] [address] Phone: tel: fax: [facility] [address] [place] [address] Phone: tel: Referral ID Status Reason Start Date Expiration Date Visits Re quested Visits Authorized [id number] 1 1 Encounter Details Date Type Department Care Team (Late st Contact Info) Description 08/09/2024 3:11 PM EDT Anesthesia Event [facility] [address] [place] [address] Gely Major CRNA, DNP [address] [place] [address] Kortney Martinez MD [address] [place] [address] Anesthesia Record Procedure Summary Procedure Name Responsible Anesthesiologist Anesthesia Start Time Anesthesia Stop Time Gely Lake CRNA, DNP 08/09/24 151 1 08/09/24 1626 Events [...] acknowledgement of understanding. 1626 An Stop Meds Name Total fentaNYL (Sublimaze) injection 50 mcg/mL 100 mcg lidocaine PF (Xylocaine-MPF) 2% 50 mg propofol (Diprivan) injection 10 mg/mL 1 20 mg dexamethasone (Decadron) injection 4 mg/ mL 4 mg ePHEDrine injection prefilled syringe 5 mg/mL 20 mg ondansetron (Zofran) injection 2 mg/mL 4 mg clindamycin (Cleocin) 900 mg in 50 mL (p remix) 900 mg lactated Ringer's infusion 500 mL * Agents Name Sevoflurane Inspired Sevoflurane * Blood No blood administrations on file. Lines, Drains, and Airways Type Details Placement Removal Wound 12/09/21; 0949; N; Y es; Incision; Sternum; Anterior; 08/09/24; 1741; Healed 12/09/21 0949 by Maddison Murillo 08/09/24 1741 by Berkley Armstrong RN Peripheral IV Placement Date: 07/20 05/15; Placement Time: 1458; Catheter Size: 20 G; Orientation: Posterior, Right; Location: Forearm; Site Prep: Chlorhexidine ; Local Anesth: None; Technique: Anatomical landmarks; Inserted by: Tej RUBY RN; Insertion Attempts: 1; Patient Tolerance: Tolerated well; Removal Date: 08/09/24; Removal Time: 1740; Removal Reason: Discharge 08/09/24 1458 by Sigrid Ruby RN 08/09/241740 by Berkley Armstrong RN Supraglottic Airway Placement Date: 07/20 05/15; Placement Time: 1519 (created via procedure documentation); Mask Ventilation: 0; Comments: Atraumatic. No change to dentition or lips from preop assessment.; Removal Date: 08/09/24; Removal Time: 16108/09/24 1519 by Gely Major CRNA, DNP 08/09/24 [...] of this encounter Miscellaneous Notes * Anesthesia Postprocedure Evaluation - Gely Major CRNA, DNP - 08/09/2024 4:26 PM EDT Patient: Jacque Worley Anesthesia Type: general Vitals Value Taken Time BP 137/52 08/09/24 16:20 Temp 36.1 08/09/24 16:26 Pulse 64 08/09/24 16:25 Resp 18 08/09/24 16:25 SpO2 96 % 08/09/24 16:25 Vitals shown include unfiled device data. Anesthesia Post Evaluation Patient location during evaluation: PACU Patient participation: complete - patient participated Level of consciousness: awake and baseline Pain management: adequate (pain score 0-3) Airway patency: natural airway Cardiovascular status: acceptable and hemodynamically stable Respiratory status: face mask, nonlabored ventilation and spontaneous ventilation Hydration status: acceptable No notable events documented. * Anesthesia Procedure Notes - Geyl Major CRNA, DNP - 08/09/2024 3:32 PM EDTAssociated Order(s): Airway Airway Date/Time: 08/09/2024 3:19 PM Reason: elective Airway not difficult General Information and Staff Patient location during procedure: OR WARP TRUCKER: Gely Major CRNA, DNP Performed: WARP TRUCKER Patient Condition Indications for airway management: anesthesia Patient position: sniffing Final Airway Details Final airway type: LMALMA Size: 3 LMA Type: normal Additional Comments Atraumatic. No change to dentition or lips from preop assessment. * Anesthesia Preprocedure Evaluation - Israel Ascencio MD - 08/09/2024 6:29 AM EDT Images from the original note were not included. KARL Worley is a 73 y.o. 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 PMH COPD, GERD, RA, HTN Medical History[1] Family History[2] Social History[3] SURGICAL HISTORY: Surgical History[4] Allergies[5] MEDICATIONS: No current facility-administered medications for this encounter. Current Outpatient Medications: albuterol, INHALE 2 PUFFS [...] tablets by mouth 2 times a day. Multiple Vitamin (MULTIVITAMINS PO), Take by mouth. (Patient not taking: Reported on 07/31/2024) kfcmkpzo-zpsnkopxu-wzhtuypllcspn, ondansetron, Take 1 tablet by mouth every 8 hours as needed for nausea or vomiting. (Patient not taking: No sig reported) oxybutynin XL, Take 1 tablet by mouth daily. pramipexole, TAKE 1 TABLET BY MOUTH NIGHTLY FOR RESTLESS LEGS predniSONE, Take 3 tablets for 5 days, then take 2 tablets for 5 days, then take 1 tablet for 5 days. Xeljanz XR, Take 1 tablet by mouth 1 (one) time each day. 03/2024 ROS Anesthesia: Date of last anesthetic: [...] artery disease, dysrhythmias, murmur, orthopnea, pacemaker, past MA, syncope or valvular heart disease. hypertension: Exercise tolerance is 1 flight of stairs. Cardio additional comments: Card records scanned into [facility] [facility] 04/18/2024 Card note f/u stable from CV [...] INR 2.5 to 3.5 Prevention of recurrent MA INR 2.5 to 3.5 Visit Vitals OB Status Postmenopausal Smoking Status Former Physical Exam Anesthesia Plan ASA 3 Anesthesia technique(s) discussed with the patient/family: general Comment: Avi phone screen Kortney Martinez MD [1] Past Medical History: Diagnosis Date COPD [...] WIRES REMOVAL 12/09/2021 Dr Jose Delgado - [facility] TUBAL LIGATION N/A [5] Allergies Allergen Reactions Cephalexin Hives Acetaminophen Unknown - Patient states they do not know rxn details Naproxen Other - please document in the comment field and Unknown - Patient states they do not knowrxn details documented in this encounter Plan of Treatment Upcoming Encounters Date Type Department Care Team (Late st Contact Info) Description 10/01/2024 9:20 AM EDT Appointment [facility] Radiology [address] [place] [phone] 10/01/2024 10:15 AM EDT Office Visit [facility] Head[facility] Neck [facility] Respiratory [address] [place] [phone] Candido Fitzgerald MD [address] [place] [address] 01/01/2025 9:40 AM EDT Office Visit [facility] Gynecology [address] [facility] [place] [phone] Mark Zurita MD [address] [place] [address] 01/21/2025 12:50 PM EST Office Visit [place] [facility] [address] [place] [address] Lisa Leon, SENIOR RESIDENT CARE DIRECTOR [address] [place] [address] documented as of this encounter Procedures Procedure Name Priority Date/Time Associated Diagnosis Comments PB ANESTHESIA PLACEHOLDER Routine 08/09/2024 3:19 PM EDT LA AN ELECTIVE SUPRAGLOTTIC AIRWAY Routine 08/09/2024 3:19 PM EDT documented in this encounter Results * LA AN ELECTIVE SUPRAGLOTTIC AIRWAY, PB ANESTHESIA PLACEHOLDER (08/09/2024 3:19 PM EDT) Narrative Gely Major CRNA, DNP - 08/09/2024 3:19 PM EDT Gely Major CRNA, DNP 08/09/2024 3:32 PM Airway Date/Time: 08/09/2024 3:19 PM Reason: elective Airway not difficult General Information and Staff Patient location during procedure: OR WARP TRUCKER: Tiller, Gely M, WARP TRUCKER, DNP Performed: WARP TRUCKER Patient Condition Indications for airway management: anesthesia Patient position: sniffing Final Airway Details Final airway type: LMALMA Size: 3 LMA Type: normal Additional Comments Atraumatic. No change to dentition or lips from preop assessment. us Israel Ascencio MD ANESTHESIA ORDERABLES Final Re sult documented in this encounter Visit Diagnoses Not on filedocumented in this encounter Administered Medications Inactive Administered Medications - up to 3 most recent administrations Medication Order MAR Action Action Date Dose Rate Site clindamycin (Cleocin) IV solution Intravenous, As needed, Starting on Brynn 08/09/24 at 1548, Until Brynn 08/09/24 at 1626, Routine, Anesthesia Intraprocedure Given 08/09/2024 3:48 PM EDT 900 mg dexamethasone (Decadron) injection Intravenous, As needed, Starting on Brynn 08/09/24 at 1523, Until Brynn 08/09/24 at 1626, Routine, Anesthesia Intraprocedure Given 08/09/2024 3:23 PM EDT 4 mg ePHEDrine Sulfate (Akovaz) injection Intravenous, As needed, Starting on Brynn 08/09/24 at 1534, Until Brynn 08/09/24 at 1626, Routine, Anesthesia Intraprocedure Given 08/09/2024 4:02 PM EDT 10 mg Given 08/09/2024 3:49 PM EDT 5 mg Given 08/09/2024 3:34 PM EDT 5 mg fentaNYL (Sublimaze) injection Intravenous, As needed, Starting on Brynn 08/09/24 at 1518, Until Brynn 08/09/24 at 1626, Routine, Anesthesia Intraprocedure Given 08/09/2024 4:18 PM EDT 25 mcg Given 08/09/2024 3:52 PM EDT 25 mcg Given 08/09/2024 3:28 PM EDT 25 mcg lactated Ringer's infusion Intravenous, Continuous PRN, Starting on Brynn 08/09/24 at 1511, Until Brynn 08/09/24 at 1626, Routine New Bag 08/09/2024 3:11 PM EDT lidocaine PF (Xylocaine) 2 % injection Intravenous, As needed, Starting on Brynn 08/09/24 at 1518, Until Brynn 08/09/24 at 1626, Routine, Anesthesia Intraprocedure Given 08/09/2024 3:18 PM EDT 50 mg ondansetron (Zofran) injection Intravenous, As needed, Starting on Brynn 08/09/24 at 1608, Until Brynn 08/09/24 at 1626, Routine, Anesthesia Intraprocedure Given 08/09/2024 4:08 PM EDT 4 mg propofol (Diprivan) injection Intravenous, As needed, Starting on Brynn 08/09/24 at 1518, Until Brynn 08/09/24 at 1626, Routine, Anesthesia Intraprocedure Given 08/09/2024 3:18 PM EDT 120 mg documented in this encounter Additional Health Concerns Assessment Noted Time A fall risk assessment has been complete d for the patient 07/02/2024 11:08 AM EDT A Body Mass Index follow-up plan has been documented for the patient 07/02/2024 11:57 AM EDT documented as of this encounter Care Teams Steam Conditioner Filling Relationship Specialty Start Date End Date Cali Snyder APRN [address] [place] [address] PCP - General 01/09/24 Nico Moncada MD [address] [place] [address] Referring Physician Cardiology 12/21/21 Elba Alves DO [address] [place] [address] Resident 06/13/24 documented as of this encounter
--- OUTSIDE RECORDS SUMMARY | 2024-08-29 11:00 | XMS_ITS | Encounter Summary ---
Author Organization Healthcare Address [address] [id number] Care Team Providers Care Recoating Machine Operator Name Role Phone Nico Moncada MD Unavailable [phone] Cali Snyder APRN Primary Care Provider [phone] Elba Alves DO Unavailable [phone] Encounter Details Date Type Department Care Team (Late st Contact Info) Description 08/29/2024 11:00 AM EDT Office Visit [facility] [address] [place] [address] Venancio Duran MD [address] [facility] [address] [place] [address] Severe vulvar dysplasia, histologically confirmed (Primary Dx) [...] m?? Physical Exam Exam conducted with a conference concierge present. Constitutional: Appearance: Normal appearance. She is [...] phlebotomy and documentation. Encounter time 20 min [facility] [address] [facility] [address] Dept: [phone] Dept Loc: [phone] [1] Past Medical History: Diagnosis Date COPD [...] WIRES REMOVAL 12/09/2021 Dr Jose Delgado - [facility] TUBAL LIGATION N/A VULVA SURGERY Right 08/09/2024 [...] mouth. (Patient not taking: Reported on 07/31/2024) ezuuwidk-hpmpesjzs-lyklxabyysvyq (Maxitrol) 3.5-05597-4.1 ophthalmic suspension (Patient not taking: No sig [...] (16.0 ttl pk-yrs) Types: Cigarettes Start date: 2004 Quit date: 2020 Years since quittin.4 Passive [...] EDT Appointment [facility] [address] [place] [address] 10/01/2024 10:15 AM EDT Office Visit [facility] [address] [facility]nd [place] [address] Candido Fitzgerald MD [address] [facility] [address] [place] [address] 01/01/2025 9:40 AM EDT Office Visit [facility] [address] [facility] [address] [place] [address] Mark Zurita MD [address] [facility] [address] [place] [address] 01/21/2025 12:50 PM EST Office Visit [place] [facility] [address] [place] [address] Lisa Leon, EMBEDDED FIRMWARE DEVELOPER [address] [place] [address] documented as of this encounter [...] documented as of this encounter Care Teams Recoating Machine Operator Relationship Specialty Start Date End Date Cali Snyder, EMBEDDED FIRMWARE DEVELOPER [address] [place] [address] PCP - General 01/09/24 Nico Moncada MD [address] [place] [address] Referring Physician Cardiology 12/21/21 Elba Alves DO [address] [place] [address] Resident 06/13/24 documented as of this encounter
--- OUTSIDE RECORDS SUMMARY | 2024-09-17 15:20 | XMS_ITS | Encounter Summary ---
Author Organization [facility] Address [address] [place] [address] Care Team Providers Care Pick Up And Delivery Driver Name Role Phone Nico Moncada MD Unavailable [phone] Cali Snyder PAYROLL PROFESSIONAL Primary Care Provider [phone] Elba Alves DO Unavailable [phone] Reason for Visit * Reason Comments Follow-up Encounter Details Date Type Department Care Team (Latest Contact Info) Description 09/17/2024 3:20 PM EDT Office Visit [facility] [address] [place] [address] Lisa Fowler APRN [address] [place] [address] Seropositive rheumatoid arthritis of multiple [...] of Seropositive rheumatoid arthritis of multiple sites ([facility]) [M05.79] Subjective HPI Jacque Worley [...] with rheumatology Dr. Oliver and changes to [facility] rheumatology due to insurance coverage. Med Hx: [...] WIRES REMOVAL 12/09/2021 Dr Jose Delgado - [facility] TUBAL LIGATION N/A VULVA SURGERY Right 08/09/2024 [...] Status: Two children Employed [employer] Financial Resource Strain: Not on file Food [...] Multiple Vitamin (MULTIVITAMINS PO) Take by mouth. cxuzyeek-rbqacqteb-sdrkbglhjjjbl (Maxitrol) 3.5-10537-3.1 ophthalmic suspension nystatin (Mycostatin) 201946 UNIT/ML suspension ondansetron (Zofran) 4 MG tablet [...] Case Report 08/09/2024 Final Value:Surgical Pathology Case: [id number] Authorizing Provider: Venancio Duran MD Collected: 08/09/2024 4925 Ordering Location: [facility] OPERATING ROOM Received: 08/09/2024 1630 Pathologist: [...] tip Cold Time: 32m DANIELLE Hassan ([facility]) Note: 08/09/2024 Final Value:A resident was involved [...] assessment: Patient Global: --/10 Rapid 3 score: 530 CDAI: 11 Assessment/Plan Seropositive RA -Continue Xeljanz ER 11 mg daily -Continue HCQ 200 mg/day -update imaging today 2. High risk medication use 3. USP use of immunosuppressant medication She has appt [...] EDT Appointment [facility] Radiology [address] [place] [address] 10/01/2024 10:15 AM EDT Office Visit [facility] [address] [facility]nd [place] [address] Candido Fitzgerald MD [address] [facility] [address] [place] [address] 01/01/2025 9:40 AM EDT Office Visit [facility] Gynecology [address] [place] [address] Mark Zurita MD [address] [facility] [address] [facility] [address] [place] [address] 01/21/2025 12:50 PM EST Office Visit [facility] [address] [place] [address] Lisa Fowler, PAYROLL PROFESSIONAL [address] [place] [address] documented as of this encounter [...] heads with MCP joint space narrowing. Diffuse ynaq-be-wmxgcyfo interphalangeal joint space narrowing. Carpal rows are intact. No soft tissue swelling. Left hand/wrist: No acute fracture. Similar radial subluxation of the thumb MCP joint. Similar erosive changes of the thumb metacarpal head. Diffuse gpeh-mc-nxgurofm interphalangeal joint space narrowing. Carpal rows are [...] metacarpal heads with MCP jointspace narrowing. Diffuse kbly-re-lkfkksda interphalangeal joint spacenarrowing. Carpal rows are intact. No soft tissue swelling. Left hand/wrist: No acute fracture. Similar radial subluxation of thethumb MCP joint. Similar erosive changes of the thumb metacarpal head.Diffuse dndy-zh-lnloqrwe interphalangeal joint space narrowing. Carpalrows are intact. [...] MD on 09/17/2024 4:31 PM Lisa Fowler PAYROLL PROFESSIONAL IMG XR PROCEDURES Final R esult * [...] heads with MCP joint space narrowing. Diffuse nfwf-eq-wqwcsqfb interphalangeal joint space narrowing. Carpal rows are intact. No soft tissue swelling. Left hand/wrist: No acute fracture. Similar radial subluxation of the thumb MCP joint. Similar erosive changes of the thumb metacarpal head. Diffuse escn-mi-cjsfzfpo interphalangeal joint space narrowing. Carpal rows are [...] metacarpal heads with MCP jointspace narrowing. Diffuse jozq-nk-ddhiriuq interphalangeal joint spacenarrowing. Carpal rows are intact. No soft tissue swelling. Left hand/wrist: No acute fracture. Similar radial subluxation of thethumb MCP joint. Similar erosive changes of the thumb metacarpal head.Diffuse foxl-fd-alehizlx interphalangeal joint space narrowing. Carpalrows are intact. [...] MD on 09/17/2024 4:31 PM Lisa Fowler PAYROLL PROFESSIONAL IMG XR PROCEDURES Final R esult * [...] heads with MCP joint space narrowing. Diffuse jazk-wb-bawutybg interphalangeal joint space narrowing. Carpal rows are intact. No soft tissue swelling. Left hand/wrist: No acute fracture. Similar radial subluxation of the thumb MCP joint. Similar erosive changes of the thumb metacarpal head. Diffuse crwl-eo-jorolfxi interphalangeal joint space narrowing. Carpal rows are [...] metacarpal heads with MCP jointspace narrowing. Diffuse lzou-ij-ulzjuimd interphalangeal joint spacenarrowing. Carpal rows are intact. No soft tissue swelling. Left hand/wrist: No acute fracture. Similar radial subluxation of thethumb MCP joint. Similar erosive changes of the thumb metacarpal head.Diffuse hhzt-qj-vyabngbp interphalangeal joint space narrowing. Carpalrows are intact. [...] on 09/17/2024 4:31 PM Lisa Perkins Edward PAYROLL PROFESSIONAL IMG XR PROCEDURES Final R esult documented [...] documented as of this encounter Care Teams Pick Up And Delivery Driver Relationship Specialty Start Date End Date Cali Snyder APRN [address] [place] [address] PCP - General 01/09/24 Nico Moncada MD [address] [place] [address] Referring Physician Cardiology 12/21/21 Elba Alves DO [address] [place] [address] Resident 06/13/24 documented as of this encounter
--- OUTSIDE RECORDS SUMMARY | 2024-09-17 15:51 | XMS_ITS | Encounter Summary ---
Author Organization Healthcare Address [address] [place] [address] Care Team Providers Care Pals Nurse Name Role Phone Nico Moncada MD Unavailable [phone] Cali Snyder APRN Primary Care Provider [phone] Elba Alves DO Unavailable [phone] Encounter Details Date Type Department Care Team (Latest Contact Info) Description 09/17/2024 3:51 PM EDT - 09/17/2024 11:59 PM EDT Hospital Encounter [facility] [address] [place] [address] Seropositive rheumatoid arthritis of multiple sites ([facility]); High risk medication use; Long-term use of [...] PO) Take by mouth. neomycin-polymyx in-dexamethasone (Maxitrol) 3.5-48686-8.1 ophthalmic suspension 09/05/2023 nystatin (Mycostatin) 128673 UNIT/ML suspension 09/13/2024 ondansetron (Zofran) 4 MG [...] EDT Appointment [facility] [address] [place] [address] 10/01/2024 10:15 AM EDT Office Visit [facility] [address] [place] [address] Candido Fitzgerald MD [address] [place] [address] 01/01/2025 9:40 AM EDT Office Visit [facility]ne[facility] [address] [place] [address] Mark Zurita MD [address] [facility] [address] [place] [address] 01/21/2025 12:50 PM EST Office Visit [facility] [address] [place] [address] Lisa Leon APRN [address] [place] [address] documented as of this encounter Procedures Procedure Name Priority Date/Time Associated Diagnosis Comments XR HAND WRIST BILATERAL 2 VIEWS Routine 09/17/2024 4:08 PM EDT Seropositive rheumatoid arthritis of multiple sites (CMS/HCC) High risk medication use Long-term use of immunosuppressant medication XR FOOT RIGHT 3+ VIEWS Routine 09/17/2024 4:08 PM EDT Seropositive rheumatoid arthritis of multiple sites (CMS/HCC) High risk medication use Long-term use of immunosuppressant medication XR FOOT LEFT 3+ VIEWS Routine 09/17/2024 4:08 PM EDT Seropositive rheumatoid arthritis of multiple sites (CMS/HCC) [...] heads with MCP joint space narrowing. Diffuse tuhn-yy-dxbcstxr interphalangeal joint space narrowing. Carpal rows are intact. No soft tissue swelling. Left hand/wrist: No acute fracture. Similar radial subluxation of the thumb MCP joint. Similar erosive changes of the thumb metacarpal head. Diffuse xpyd-zw-xtzpvvjw interphalangeal joint space narrowing. Carpal rows are [...] metacarpal heads with MCP jointspace narrowing. Diffuse atqd-mb-ukpstvsl interphalangeal joint spacenarrowing. Carpal rows are intact. No soft tissue swelling. Left hand/wrist: No acute fracture. Similar radial subluxation of thethumb MCP joint. Similar erosive changes of the thumb metacarpal head.Diffuse bfbw-sb-owlegyct interphalangeal joint space narrowing. Carpalrows are intact. [...] MD on 09/17/2024 4:31 PM Lisa Leon SIGNAL TECHNICIAN IMG XR PROCEDURES Final R esult * [...] heads with MCP joint space narrowing. Diffuse jmno-vd-rvauokcz interphalangeal joint space narrowing. Carpal rows are intact. No soft tissue swelling. Left hand/wrist: No acute fracture. Similar radial subluxation of the thumb MCP joint. Similar erosive changes of the thumb metacarpal head. Diffuse yhuo-em-glwowfbu interphalangeal joint space narrowing. Carpal rows are [...] metacarpal heads with MCP jointspace narrowing. Diffuse xgmb-vo-jrrpsrlg interphalangeal joint spacenarrowing. Carpal rows are intact. No soft tissue swelling. Left hand/wrist: No acute fracture. Similar radial subluxation of thethumb MCP joint. Similar erosive changes of the thumb metacarpal head.Diffuse iqrk-tu-bipfotpd interphalangeal joint space narrowing. Carpalrows are intact. [...] MD on 09/17/2024 4:31 PM Lisa Leon SIGNAL TECHNICIAN IMG XR PROCEDURES Final R esult * [...] heads with MCP joint space narrowing. Diffuse pzwh-on-jkxveidq interphalangeal joint space narrowing. Carpal rows are intact. No soft tissue swelling. Left hand/wrist: No acute fracture. Similar radial subluxation of the thumb MCP joint. Similar erosive changes of the thumb metacarpal head. Diffuse ykub-rn-rdhmpwmz interphalangeal joint space narrowing. Carpal rows are [...] metacarpal heads with MCP jointspace narrowing. Diffuse xilq-yy-sbfyuioj interphalangeal joint spacenarrowing. Carpal rows are intact. No soft tissue swelling. Left hand/wrist: No acute fracture. Similar radial subluxation of thethumb MCP joint. Similar erosive changes of the thumb metacarpal head.Diffuse kyrq-gy-tewrcent interphalangeal joint space narrowing. Carpalrows are intact. [...] MD on 09/17/2024 4:31 PM Lisa Leon SIGNAL TECHNICIAN IMG XR PROCEDURES Final R esult documented in this encounter Visit Diagnoses Diagnosis Seropositive rheumatoid arthritis of multiple sites ([facility]) High risk medication use Long-term use of immunosuppressant medication documented in this encounter Additional Health Concerns Assessment Noted Time A fall risk assessment has been complete d for the patient 09/17/2024 3:19 PM EDT A Body Mass Index follow-up plan has been documented for the patient 09/17/2024 3:40 PM EDT documented as of this encounter Care Teams Pals Nurse Relationship Specialty Start Date End Date Cali Snyder APRN [address] [place] [address] PCP - General 01/09/24 Nico Moncada MD [address] [address] Referring Physician Cardiology 12/21/21 Elba Alves DO 1210 [facility] [address] [place] [address] Resident 06/13/24 documented as of this encounter
--- NOTE | 2024-09-20 11:00 | MM_ITS ---
PROCEDURE INFORMATION: Exam: MG Bilateral Screening 3D Mammography Exam date and time: 09/20/2024 11:15 AM Age: 74 years old Clinical indication: Screening examination TECHNIQUE: Imaging protocol: Bilateral Screening tomosynthesis and 2D mammography including computer-aided detection (CAD) when performed. COMPARISON: 1. MG MM DIG SCREENING MAMM BI W/CAD 10/13/2022 12:55 PM 2. MG SCBI MM Dig screening mamm BI w/CAD 11/03/2017 9:09 AM FINDINGS: MAMMOGRAPHY: Breast composition: The breasts are heterogeneously dense, which may obscure small masses. Mass: No suspicious masses. Architectural distortion: None. Calcifications: No suspicious calcifications. Asymmetric density: None. Skin thickening: None. Axillary adenopathy: None. IMPRESSION: No mammographic evidence of malignancy. Annual screening is recommended unless otherwise clinically indicated. ASSESSMENT: BI-RADS Category 1: Negative.
--- OUTSIDE RECORDS SUMMARY | 2024-09-20 11:01 | XMS_ITS | Data Portability ---
Author Organization [facility] Mario Gordillo [facility] Address [address] [facility] [address] [place] [address] Care Team Providers Care Division Toll Wire Chief Name Role Phone MARY NEGRON Primary Care Provider [phone] Assessment Encounter Date Assessment Date Assessment LastModified by Organization Details LastModified Time 09/14/2024 09/14/2024 This is a pleasant 74-year-old female that presents for follow-up today. Since her last visit patient reports that she has not fallen. 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 She did go and have the procedure where they did cut out and stitched things back up. She had that done August 09. She was discharged and sent home. She reports that she is fully recovered at this time. She is supposed to follow-up with the oncology welcome hostess in a couple of weeks. She has since started back on her immunosuppressive 's for her rheumatoid arthritis. She has been taking her Xeljanz. Patient has not taken her Plaquenil for a couple of months. Patient reports that she did go see her primary care yesterday due to her mouth. Patient reports that she got some medicine from her but she is supposed to swish and spit. She reports that she has had issues with dry mouth. States that she will get up in the morning and feel like her lips are glued together . She is having a hard time eating certain foods as it can make her tongue burn. Patient reports that she has had some sinus congestion and sinus pressure. She states that she has had a cough for over a week now. Patient states that her ribs hurt at times. She denies any chest pressure or pain. Patient states that her blood pressure has been normal. She is continue to use her Breo for her breathing. She also has been using a nasal spray [id number] with minimal relief. She has not had any fevers at this time. Patient reports that she feels drained. We did provide education for patient on her nystatin. We talked about make sure to do good denture care during this. Including taking them out at night and soaking them. We did advise patient to increase her water intake at this time. She is going to follow-up with her litigation attorney on Tuesday about her Plaquenil if she should still be continuing to use it. Will send in antibiotics today for patient's sinus infection, patient will contact us with any issues with the medication. We will follow-up with patient in 2 weeks via telehealth to check on her. Patient will continue all her medications as prescribed. Patient verbalized understanding and agreeable with this plan of care. [facility] communication sheet printed and provided to patient/family/ca regiver at the end of today's visit. All questions answered. [place] [phone] Not available 09/14/2024 14:39:25 Plan of Treatment Reminders Order Date Submit Date Provider Last Modified By Organization Details Last Modified Time Details Appointments None recorded. Lab None recorded. Referral None recorded. Procedures None recorded. Surgeries None recorded. Imaging None recorded. Medication Orders doxycycline hyclate 100 mg capsule 2024 025 [email or web address] [facility], [address], [address], 12:35:51 Patient TargetsNo targets recorded. Patient InstructionsNo instructions recorded. Reason for Referral None Reported. Problems Name Problem SNOMED Code Status Onset Date Resolution Date Notes Provider Name and Address Organization Details Recorded Time Chronic obstructi ve pulmonary disease 45491823 Active Chronic obstructi ve pulmonary disease, unspecifi ed; Active Date: 5; Recorded Date: Problem Code: J44.9; Problem Code Type: ICD-10; Not Available [facility] 19:19:26 Gastroeso phageal reflux disease without esophagit is 352851759 Active GERD (gastroes ophageal reflux disease); Active Date: Problem Code: K21.9; Problem Code Type: ICD-10; Not Available [facility] 19:19:26 Adult health examinati on Active 2024 Encounter for general adult medical examinati on without abnormal findings; Last Dx's Date: 5; Active Date: 5; Recorded Date: Problem Code: Z00.00; Problem Code Type: ICD-10; Not Available [facility] 19:19:26 Body mass index less than 20 926383695 Active BMI less than 19,adult; Active Date: Problem Code: Z68.1; Problem Code Type: ICD-10; Not Available [facility] 19:19:26 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 33354160928 9100 Active Rheumatoi d arthritis with rheumatoi d factor of right hand without organ or systems involveme nt; Active Date: 5; Recorded Date: Problem Code: M05.741; Problem Code Type: ICD-10; Not Available [facility] 19:19:27 Atheroscl erosis of coronary artery without angina pectoris 48671205516 4103 Active Coronary artery disease; Active Date: Problem Code: I25.10; Problem Code Type: ICD-10; Not Available [facility] 19:19:27 Breakage of internal fixation device 332292388 Active Fractured sternal wires; Active Date: Problem Code: T84.218A; Problem Code Type: ICD-10; Not Available [facility] 19:19:27 Hyperlipi demia 24902865 Active Hyperlipi demia; Active Date: Problem Code: E78.5; Problem Code Type: ICD-10; Not Available [facility] 19:19:27 Essential hypertens ion 12309872 Active Hypertens ion; Active Date: Problem Code: I10; Problem Code Type: ICD-10; Not Available [facility] 19:19:27 Rheumatoi d arthritis 04594282 Active Rheumatoi d arthritis ; Active Date: Problem Code: M06.9; Problem Code Type: ICD-10; Not Available [facility] 5 19:19:28 Problem Notes None recorded. Procedures Surgical History Date Name Laterality Status Provider Name and Address Organization Details Recorded Time ligation of fallopian tube completed Not Available [facility] 09/10/2024 01:56:49 Imaging Results None recorded. Procedure Notes None recorded. Medical Equipment None Reported. Allergies Allergen ID Allergen Name Allergen Category Reaction Reaction Severity Criticality Documentation Date Start Date Code Code System Note Provider Name and Address Organization Details Recorded Time 813828 Product containin g salicylat e (product) medicatio n Not available Not available Not available 09/10/20242019 80378 2004 SNOMED Verif icati on Statu s: confi rmed Not Available [facility] 5 00:16:43 140724 Medicinal product containin g cephalosp kriss and acting as antibacte rial agent (product) medicatio n Not available Not available Not available 09/10/20242021 45421 9009 SNOMED Verif icati on Statu s: confi rmed Not Available [facility] 5 00:16:43 723568 acetamino phen medicatio n Not available Not available Not available 09/10/20242019 161 RxNorm Verif icati on Statu s: confi rmed Not Available [facility] 5 00:16:43 Medications Name Sig Start Date Stop Date Status Note LastModified by Organization Details LastModified Time cyclobenzap rine 10 mg tablet TAKE 1 TABLET BY MOUTH THREE TIMES DAILY NEEDED FOR MUSCLE SPASM active Not Available Not Available No t Available hydrocortis one 0.5 % topical cream APPLY TOPICALLY TO THE AFFECTED AREA TWICE DAILY NEEDED FOR RASH active Not Available Not Available No t Available doxycycline hyclate 100 mg capsule Take 1 capsule twice a day by oral route for 10 days. 2024 active Not Available Not Available Not Avai lable atorvastati n 20 mg tablet TAKE 1 TABLET BY MOUTH ONCE DAILY FOR CHOLESTER OL active Not Available Not Available No t Available oxybutynin chloride ER 10 mg tablet,exte nded release 24 hr TAKE 1 TABLET BY MOUTH ONCE DAILY active Not Available Not Available No t Available fluconazole 150 mg tablet TAKE 1 TABLET BY MOUTH FOR 1 DOSE ADMINISTE R ON DAY 1 OF THERAPY active Not Available Not Available No t Available ondansetron HCl 4 mg tablet TAKE 1 TABLET BY MOUTH EVERY 8 HOURS NEEDED FOR NAUSEA OR VOMITING active Not Available Not Available No t Available prednisone 20 mg tablet TAKE 1 TABLET BY MOUTH TWICE DAILY FOR 5 DAYS 09/14 completed Not Available Not Available Not Available alendronate 70 mg tablet TAKE 1 TABLET BY MOUTH EVERY WEEK ON THE SAME DAY EACH WEEK active Not Available Not Available No t Available prednisone 5 mg tablet Take 3 tablets for 5 days, then take 2 tablets for 5 days, then take 1 tablet for 5 days. 09/14 completed Not Available Not Available Not Available doxycycline monohydrate 100 mg tablet TAKE 1 TABLET BY MOUTH TWICE DAILY FOR 14 DAYS 09/14 completed Not Available Not Available Not Available neomycin-po lymyxin-dex ameth 3.5 mg/mL-10,00 0 unit/mL-0.1 % eye drops 06/13 completed Not Available Not Available Not Available pramipexole 0.125 mg tablet TAKE 1 TABLET BY MOUTH EVERY NIGHT FOR RESTLESS LEGS active Not Available Not Available No t Available docusate sodium 100 mg capsule TAKE 1 CAPSULE BY MOUTH ONCE DAILY active Not Available Not Available No t Available estradiol 0.01% (0.1 mg/gram) vaginal cream APPLY 1 GRAM VAGINALLY USING FINGER TECHNIQUE THREE TIMES WEEKLY active Not Available Not Available No t Available albuterol sulfate HFA 90 mcg/actuati on aerosol inhaler INHALE 2 PUFFS BY MOUTH EVERY 4 TO 6 HOURS NEEDED FOR SHORTNESS OF BREATH OR WHEEZING active Not Available Not Available No t Available bromphenira mine-pseudo ephedrine-D M 2 mg-30 mg-10 mg/5 mL oral syrup TAKE 10 ML BY MOUTH EVERY 6 HOURS NEEDED FOR COLD SYMPTOMS 09/14 completed Not Available Not Available Not Available cefdinir 300 mg capsule TAKE 1 CAPSULE BY MOUTH EVERY 12 HOURS FOR 10 DAYS 09/14 completed Not Available Not Available Not Available fluticasone propionate 50 mcg/actuati on nasal spray,suspe nsion SHAKE LIQUID AND USE 1 SPRAY IN EACH NOSTRIL DAILY NEEDED FOR ALLERGY SYMPTOMS active Not Available Not Available No t Available amoxicillin 875 mg-potassiu m clavulanate 125 mg tablet TAKE 1 TABLET BY MOUTH TWICE DAILY FOR 7 DAYS 09/14 completed Not Available Not Available Not Available metoprolol tartrate 25 mg tablet TAKE 1/2 (ONE-HALF ) TABLET BY MOUTH TWICE DAILY active Not Available Not Available No t Available nitrofurant oin monohydrate /macrocryst als 100 mg capsule TAKE 1 CAPSULE BY MOUTH TWICE DAILY WITH FOOD / MEAL active Not Available Not Available No t Available Breo Ellipta 100 mcg-25 mcg/dose powder for inhalation INHALE 1 PUFF BY MOUTH ONCE DAILY active Not Available Not Available No t Available Xeljanz XR 11 mg tablet,exte nded release Take 1 Tablet(s) Oral every day .; UOM: Tablet 2024 active Not Available Not Available Not Avai lable Sovuna 200 mg tablet Take 1 Tablet(s) (200 mg) Oral every day .; UOM: Tablet 2023 active Not Available Not Available Not Avai lable Vitals Date Recorded Body height Body temperature Body mass index (BMI) Body weight Respiratory rate Heart rate Oxygen saturation Oxygen saturation in Arterial blood by Pulse oximetry Systolic And Diastolic Provider Name and Address Organization Details Last Updated DateTime 5 160.02 cm 97.5 [degF] 20 kg/m2 64232.9 4 g 16 /min 94 /min 95 % 95 % 120/76 mm[Hg] RON Gordillo 5 10:46:05 Social History Question Answer Notes LastModified by Organizat ion Details LastModified Time What Is Your Code Status? Full Code Information not available 09/10/2024 Where Do You Live? Trailer Information not available 09/10/2024 Do You Currently Or Have You Ever Smoked Tobacco? Former Smoker Information not available 09/10/2024 How Many Times Per Week Do You Consume Alcohol? Other SocialHisto ryQuestion: 'Alcohol History'; SocialHisto ryResponse: 'Never Drinks Alcohol'; Information not available 09/10/2024 How Many Children Do You Have? 0 SocialHisto ryQuestion: 'Number Of Children'; SocialHisto ryResponse: '2'; Information not available 09/10/2024 Sex: Female Functional Status Question Answer Note LastModified by Organizat ion Details LastModified Time Do you use any illicit or recreational drugs? No SocialHist oryQuestio n: 'Illegal/R ecreationa l drug history'; SocialHist oryRespons e: '*Has never used illegal/re creational drugs'; Information not available 09/10/2024 Mental Status None recorded. Family History Relationship Description Onset Age of this Age Resolved Age Notes LastModified by Organization Details LastModified Time Father Heart disease [email or web address] Not available 00:45:34 Medical History No medical history recorded. Gynecological HistoryNo gynecological history recorded. Obstetrics History GPAL:G 0 P 0 0 0 0 Past Encounters Encounter ID Performer Location Encounter Start Date Encounter Closed Date Diagnosis/Indication Diagnosis SNOMED-CT Code Diagnosis ICD10 Code Diagnosis Note [id number] Christin Thapa, TRAILER DRIVER [place] [address] [address] 09/14/2024 10:35:34 09/14/2024 17:34:01 Chronic obstructive pulmonary disease 16282233 J44.9 Continue Breo Essential hypertension 67150096 I10 Continue Metoprolol Rheumatoid arthritis 698 41573 M06.9 Continue Xeljanz Acute maxi llary sinusitis 56243029 J01.00 Sensamist for allergies Goals Section Goal Description Progress Status Start Date LastModified by Organization Details LastModified Time Activities of Daily Living Performs activities of daily living independently or with minimal assistance None active 2024 RNO LEYVA Information not available 09/14/2024 12:39:45 Health Concerns Section Related Observation LastModified by Organization Detai ls LastModified Time None Recorded Concern Status LastModified by Organization Details LastModified Time Chronic obstructive pulmonary disease Active RON LEYVA Not Available 09/14/2024 12: 39:28 Advance Directives Directive None Recorded Payers Insurance Date Sequence Insurance Name Policy Number Policy Mar Covered Member ID Mar Member ID Guarantor Name 09/14/2024 1 [place]MEDICARE REPLACEMENT HMO) [id number] Jacque Worley [id number] Jacque Worley Notes Date Note Type Note Provider Name and Address Organization Details Recorded Time 09/14/2024 text/html Established/Fol low-Up Visit: Patient seen today for a follow up visit. Patient reports that she had her surgery on her labia. She has sores in her mouth and her PCP has treated her. She has had a cough for the past week. Patient states that she has sinus pressure and pain. Has been using OTC meds with minimal relief. Christin Thapa, TRAILER DRIVER [address] [place], [address], [facility] 09/14/2024 17:48:21 OBGyn Episode No OBEpisode recorded.
--- OUTSIDE RECORDS SUMMARY | 2024-09-20 11:01 | XMS_ITS | Encounter Summary ---
Author Organization Healthcare Address [address] [place] [address] Care Team Providers Care Hunter Trapper Name Role Phone Nico Moncada MD Unavailable [phone] Cali Snyder APRN Primary Care Provider [phone] Elba Alves DO Unavailable [phone] Encounter Details Date Type Department Care Team (Latest Contact Info) Description 08/09/2024 Travel Social History Tobacco Use Types Packs/Day Years [...] on file documented as of this encounter Plan of Treatment Upcoming Encounters Date Type Department Care Team (Late st Contact Info) Description 10/01/2024 9:20 AM EDT Appointment [facility] Rad[facility] [address] [place] [address] 10/01/2024 10:15 AM EDT Office Visit [facility] [address] [place] [address] Candido Fitzgerald MD [address] [place] [address] 01/01/2025 9:40 AM EDT Office Visit [facility] Gynecology [address] [place] [address] Mark Zurita MD [address] [place] [address] 01/21/2025 12:50 PM EST Office Visit [place] [facility] [address] [place] [address] Lisa Leon, JUANJOSE [address] [place] [address] documented as of this encounter Visit Diagnoses Not on filedocumented in this encounter Additional Health Concerns Assessment Noted Time A fall risk assessment has been complete d for the patient 07/02/2024 11:08 AM EDT A Body Mass Index follow-up plan has been documented for the patient 07/02/2024 11:57 AM EDT documented as of this encounter Care Teams Hunter Trapper Relationship Specialty Start Date End Date Cali Snyder APRN [address] [place] [address] PCP - General 01/09/24 Nico Moncada MD [facility] [address] [address] Referring Physician Cardiology 12/21/21 Elba Alves DO [facility] [address] [address] Resident 06/13/24 documented as of this encounter
--- OUTSIDE RECORDS SUMMARY | 2024-09-20 11:01 | XMS_ITS | Encounter Summary ---
Author Organization Healthcare Address [address] [place] [address] Care Team Providers Care Store Facility Technician Name Role Phone Nico Moncada MD Unavailable [phone] Cali Snyder APRN Primary Care Provider [phone] Elba Alves DO Unavailable [phone] Encounter Details Date Type Department Care Team (Latest Contact Info) Description 08/29/2024 Travel Social History Tobacco Use Types Packs/Day [...] things Not at all 08/29/2024 11:26 AM SONIAT Celine Murray Feeling down, depressed, or hopeless Not at all 08/29/2024 11:26 AM EDT Celine Murray Patient Health Questionnaire -2 Score 0 08/29/2024 11:26 AM EDT Celine Murray documented as of this encounter Plan of Treatment Upcoming Encounters Date Type Department Care Team (Late st Contact Info) Description 10/01/2024 9:20 AM EDT Appointment [facility] [address] [place] [address] 10/01/2024 10:15 AM EDT Office Visit [facility] [address] [place] [address] Candido Fitzgerald MD [address] [facility] [address] [place] [address] 01/01/2025 9:40 AM EDT Office Visit [facility] [address] [place] [address] Mark Zurita MD [address] [facility] [address] [place] [address] 01/21/2025 12:50 PM EST Office Visit [place] [facility] [address] [place] [address] Lisa Leon APRN [address] [place] [address] documented as of this encounter Visit Diagnoses Not on filedocumented in this encounter Additional Health Concerns Assessment Noted Time A fall risk assessment has been complete d for the patient 08/29/2024 11:26 AM EDT A Body Mass Index follow-up plan has been documented for the patient 07/02/2024 11:57 AM EDT documented as of this encounter Care Teams Store Facility Technician Relationship Specialty Start Date End Date Cali Snyder APRN [address] [place] [address] PCP - General 01/09/24 Nico Moncada MD [address] [place], [place] [address] [address] Referring Physician Cardiology 12/21/21 Elba Alves DO [address] [place] [address] [address] Resident 06/13/24 documented as of this encounter
--- OUTSIDE RECORDS SUMMARY | 2024-09-20 11:01 | XMS_ITS | Encounter Summary ---
Author Organization Healthcare Address [address] [place] [id number] Care Team Providers Care Boilermaker Ship Name Role Phone Nico Moncada MD Unavailable [phone] Cali Snyder APRN Primary Care Provider [phone] Elba Alves DO Unavailable [phone] Encounter Details Date Type Department Care Team (Late st Contact Info) Description 08/17/2024 Results Follow-Up [facility] [address] [facility] [address] [place] [address] Venancio Duran MD [address] [facility] [address] [facility] [address] [place] [address] Social History Tobacco Use Types Packs/Day Years [...] as of this encounter Miscellaneous Notes * Telephone Encounter - Venancio Duran MD - 08/17/2024 5:03 PM EDT I called the patient with her pathology results. Final Diagnosis A. VULVA, PERINEAL BODY LESION, EXCISION: - HIGH-GRADE SQUAMOUS INTRAEPITHELIAL LESION (HSIL, OLIVIA II, MODERATE DYSPLASIA). - THE HIGH-GRADE DYSPLASIA EXTENDS TO THE ANTERIOR AND POSTERIOR TIPS. She is doing well after surgery. Follow-up as scheduled for a postop exam. documented in this encounter Plan of Treatment Upcoming Encounters Date Type Department Care Team (Late st Contact Info) Description 10/01/2024 9:20 AM EDT Appointment [facility] Radiology [address] [place] [address] 10/01/2024 10:15 AM EDT Office Visit [facility] [address] [facility] [place] [address] Candido Fitzgerald MD [address] [facility] [address] [place] [address] 01/01/2025 9:40 AM EDT Office Visit [facility] [address] [facility] [address] [place] [address] Mark Zurita MD [address] [facility] [address] [place] [address] 01/21/2025 12:50 PM EST Office Visit [place] [facility] [address] [place] [address] Lisa Leon, JUANJOSE [address] [facility] [address] [place] [address] documented as of this encounter Visit Diagnoses Not on filedocumented in this encounter Additional Health Concerns Assessment Noted Time A fall risk assessment has been complete d for the patient 07/02/2024 11:08 AM EDT A Body Mass Index follow-up plan has been documented for the patient 07/02/2024 11:57 AM EDT documented as of this encounter Care Teams Boilermaker Ship Relationship Specialty Start Date End Date Cali Snyder APRN [address] [place] [address] PCP - General 01/09/24 Nico Moncada MD [address] [place] [address] Referring Physician Cardiology 12/21/21 Elba Alves DO [address] [place] [address] Resident 06/13/24 documented as of this encounter
--- OUTSIDE RECORDS SUMMARY | 2024-09-20 11:01 | XMS_ITS | Clinical Summary ---
Author Organization [facility] [place] [facility] Address [address] [place] [address] Phone Care Team Providers Care Shotweld Operator Name Role Phone Unavailable Primary Care Provider Unavailabl e Social History Tobacco Use Types Packs/Day Years Used Date Smoking Tobacco: Never Assessed Comments Unknown Sex and Gender Information Value Date Recorded Sex Assigned at Not on file Legal Sex Female 1:24 PM EDT Gender Identity Not on file Sexual Orientation Not on file Plan of Treatment Health Maintenance Due Date Last Done Comments Annual Wellness Exam 09/05/1953 Hepatitis C Screening 1970 DTaP/TDaP/Td (1 - Tdap) 09/05/1971 Cologuard 1997 Colon Cancer Screening 1997 Colonoscopy 1997 FIT 1997 Sigmoidoscopy 1997 Virtual Colonography 1997 Pneumococcal Vaccine 50+ (1 of 1 - PCV) 2002 Zoster (1 of 2) 2002 Bone Density Screening 2017 COVID-19 Vaccine (2023-2 5 season) 2023 Influenza Vaccine (Season Ended) 2024 Hepatitis B Vaccine Aged Out No longe r eligible based on patient's age to complete this topic Meningococcal B Vaccine Aged Out No l onger eligible based on patient's age to complete this topic
--- OUTSIDE RECORDS SUMMARY | 2024-09-20 11:01 | XMS_ITS | Encounter Summary ---
Author Organization Healthcare Address [address] [place] [address] Care Team Providers Care Lab Aide Name Role Phone Nico Moncada MD Unavailable [phone] Cali Snyder APRN Primary Care Provider [phone] Elba Alves DO Unavailable [phone] Encounter Details Date Type Department Care Team (Latest Contact Info) Description 07/31/2024 Travel Social History Tobacco Use Types Packs/Day [...] EDT Appointment [facility] Radiology [address] [place] [address] 10/01/2024 10:15 AM EDT Office Visit [facility] [address] [place] [address] Candido Fitzgerald MD [address] [place] [address] 01/01/2025 9:40 AM EDT Office Visit [facility] Gynecology [address] [place] [address] Mark Zurita MD [address] [facility] [address] [place] [address] 01/21/2025 12:50 PM EST Office Visit [place] [facility] [address] [place] [address] Lisa Leon APRN [address] [place] [address] documented as of this encounter Visit Diagnoses Not on filedocumented in this encounter Additional Health Concerns Assessment Noted Time A fall risk assessment has been complete d for the patient 07/02/2024 11:08 AM EDT A Body Mass Index follow-up plan has been documented for the patient 07/02/2024 11:57 AM EDT documented as of this encounter Care Teams Lab Aide Relationship Specialty Start Date End Date Cali Snyder APRN [address] [place] [address] PCP - General 01/09/24 Nico Moncada MD [address] [place] [facility] [address] [place] [address] Referring Physician Cardiology 12/21/21 Elba Alves DO [address] [place] [facility] [place] [address] Resident 06/13/24 documented as of this encounter
--- OUTSIDE RECORDS SUMMARY | 2024-09-20 11:01 | XMS_ITS | Encounter Summary ---
Author Organization Healthcare Address [address] [place] [address] Care Team Providers Care Assistant Auditor Name Role Phone Nico Moncada MD Unavailable [phone] Cali Snyder [employer] LEADER Primary Care Provider [phone] Elba Alves DO Unavailable [phone] Encounter Details Date Type Department Care Team (Late st Contact Info) Description 09/19/2024 Results [place]-Up [place] [facility] [address], [address] [place] [address] Lisa Leon APRN [address] [place] [address] Social History Tobacco Use Types Packs/Day Years [...] Upcoming Encounters Date Type Department Care Team ([facility] st Contact Info) Description 10/01/2024 9:20 AM EDT Appointment [facility] Radiology [address] [place] [address] 10/01/2024 10:15 AM EDT Office Visit [facility] Head[facility] Neck [facility] Respiratory [address] [place] [address] Candido Fitzgerald MD [address] [place] [address] 01/01/2025 9:40 AM EDT Office Visit [facility] Gynecology [address] [facility] [address] [place] [address] Mark Zurita MD [address] [facility] [address] [place] [address] 01/21/2025 12:50 PM EST Office Visit [place] [facility] [address], [address] [place] [address] Lisa Leon APRN [address] [place] [address] documented as of this encounter Visit Diagnoses Not on filedocumented in this encounter Additional Health Concerns Assessment Noted Time A fall risk assessment has been complete d for the patient 09/17/2024 3:19 PM EDT A Body Mass Index follow-up plan has been documented for the patient 09/17/2024 3:40 PM EDT documented as of this encounter Care Teams Assistant Auditor Relationship Specialty Start Date End Date Cali Snyder APRN [address] [place] [address] PCP - General 01/09/24 Nico Moncada MD [address] [place] [facility] [address] [place] [address] Referring Physician Cardiology 12/21/21 Elba Alves DO 1210 [place] [facility] [address] [place] [address] Resident 06/13/24 documented as of this encounter
--- OUTSIDE RECORDS SUMMARY | 2024-09-20 11:01 | XMS_ITS | Encounter Summary ---
Author Organization Healthcare Address [address] [place] [address] Care Team Providers Care Commodity Analyst Name Role Phone Nico Moncada MD Unavailable [phone] Cali Snyder APRN Primary Care Provider [phone] Elba Alves DO Unavailable [phone] Encounter Details Date Type Department Care Team (Late st Contact Info) Description 08/17/2024 Refill [place] [facility] [address] [place] [address] Shauna Montemayor, PharmD Seropositive rheumatoid arthritis of multiple sites ([facility]/HCC) Social History Tobacco Use Types Packs/Day Years [...] encounter Miscellaneous Notes * Progress Notes - Shauna Montemayor, PharmD - 08/17/2024 8:12 AM EDT Refill request does not meet protocol. Sending to clinic for review. Additional info: Appointment compliance - Patient has not followed up in clinic as requested. Please review for scheduling and if refills are appropriate. Refill request received via fax documented in this encounter Plan of Treatment Upcoming Encounters Date Type Department Care Team (Late st Contact Info) Description 10/01/2024 9:20 AM EDT Appointment [facility] Radiology [address] [place] [address] 10/01/2024 10:15 AM EDT Office Visit [facility] Head[facility] Res[facility] [address] [place] [address] Candido Fitzgerald MD [address] [facility] [address] [place] [address] 01/01/2025 9:40 AM EDT Office Visit [facility] Gynecology [address] [place] [address] Mark Zurita MD [address] [facility] [address] [place] [address] 01/21/2025 12:50 PM EST Office Visit [place] [facility] [address] [place] [address] Lisa Leon APRN [address] [facility] [address] [place] [address] documented as of this encounter Visit Diagnoses Diagnosis Seropositive rheumatoid arthritis of multiple sites (CMS/HCC) documented in this encounter Additional Health Concerns Assessment Noted Time A fall risk assessment has been complete d for the patient 07/02/2024 11:08 AM EDT A Body Mass Index follow-up plan has been documented for the patient 07/02/2024 11:57 AM EDT documented as of this encounter Care Teams Commodity Analyst Relationship Specialty Start Date End Date Cali Snyder APRN [address] [place], [place] [id number] PCP - General 01/09/24 Nico Moncada MD [address] [address] Referring Physician Cardiology 12/21/21 Elba Alves DO [facility]0 [place] [id number] Resident 06/13/24 documented as of this encounter
--- OUTSIDE RECORDS SUMMARY | 2024-09-20 11:01 | XMS_ITS | Continuity of Care Document ---
Author Organization Gregorio Rios [facility] Address [address] [facility] [address] [place] [address] Care Team Providers Care Shelver Name Role Phone MARY NEGRON Primary Care Provider [phone] Assessment Encounter Date Assessment Date Assessment LastModified [...] is supposed to follow-up with the oncology spacer type bar and segment in a couple of weeks. She has [...] also has been using a nasal spray [id number] with minimal relief. She has not had [...] She is going to follow-up with her silk opener on Tuesday about her Plaquenil if she [...] and agreeable with this plan of care. [facility] communication sheet printed and provided to patient/family/ca regiver at the end of today's visit. All questions answered. [facility] Not available 09/14/2024 14:39:25 Plan of Treatment Reminders Order Date Submit Date Provider Last Modified By Organization Details Last Modified Time Details Appointments None recorded. Lab None recorded. Referral None recorded. Procedures None recorded. Surgeries None recorded. Imaging None recorded. Medication Orders doxycycline hyclate 100 mg capsule 2024 025 [email or web address] [facility] 591, [address], [address], 12:35:51 Patient TargetsNo targets recorded. Patient InstructionsNo instructions recorded. Reason for Referral None Reported. Problems Name Problem SNOMED Code Status Onset Date Resolution Date Notes Provider Name and Address Organization Details Recorded Time Chronic obstructi ve pulmonary disease 98647338 Active Chronic obstructi ve pulmonary disease, unspecifi ed; Active Date: 5; Recorded Date: Problem Code: J44.9; Problem Code Type: ICD-10; Not Available [facility] 19:19:26 Gastroeso phageal reflux disease without esophagit is 893940712 Active GERD (gastroes ophageal reflux disease); Active Date: Problem Code: K21.9; Problem Code Type: ICD-10; Not Available [facility] 19:19:26 Adult health examinati on Active 2024 Encounter for general adult medical examinati on without abnormal findings; Last Dx's Date: 5; Active Date: 5; Recorded Date: Problem Code: Z00.00; Problem Code Type: ICD-10; Not Available [facility] 5 19:19:26 Body mass index less than 20 129370270 Active BMI less than 19,adult; Active Date: Problem Code: Z68.1; Problem Code Type: ICD-10; Not Available [facility] 19:19:26 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 47016535506 9100 Active Rheumatoi d arthritis with rheumatoi d factor of right hand without organ or systems involveme nt; Active Date: 5; Recorded Date: Problem Code: M05.741; Problem Code Type: ICD-10; Not Available [facility] 19:19:27 Atheroscl erosis of coronary artery without angina pectoris 20721000121 4103 Active Coronary artery disease; Active Date: Problem Code: I25.10; Problem Code Type: ICD-10; Not Available [facility] 19:19:27 Breakage of internal fixation device 268648581 Active Fractured sternal wires; Active Date: Problem Code: T84.218A; Problem Code Type: ICD-10; Not Available [facility] 19:19:27 Hyperlipi demia 59557806 Active Hyperlipi demia; Active Date: Problem Code: E78.5; Problem Code Type: ICD-10; Not Available [facility] 19:19:27 Essential hypertens ion 70435418 Active Hypertens ion; Active Date: Problem Code: I10; Problem Code Type: ICD-10; Not Available [facility] 5 19:19:27 Rheumatoi d arthritis 44893174 Active Rheumatoi d arthritis ; Active Date: Problem Code: M06.9; Problem Code Type: ICD-10; Not Available [facility] 19:19:28 Problem Notes None recorded. Procedures Surgical History Date Name Laterality Status Provider Name and Address Organization Details Recorded Time ligation of fallopian tube completed Not Available [facility] 09/10/2024 01:56:49 Imaging Results None recorded. Procedure Notes None recorded. Medical Equipment None Reported. Allergies Allergen ID Allergen Name Allergen Category Reaction Reaction Severity Criticality Documentation Date Start Date Code Code System Note Provider Name and Address Organization Details Recorded Time 214877 Product containin g salicylat e (product) medicatio n Not available Not available Not available 09/10/20242019 24871 2004 SNOMED Verif icati on Statu s: confi rmed Not Available [facility] 5 00:16:43 111120 Medicinal product containin g cephalosp kriss and acting as antibacte rial agent (product) medicatio n Not available Not available Not available 09/10/20242021 63839 9009 SNOMED Verif icati on Statu s: confi rmed Not Available [facility] 5 00:16:43 356046 acetamino phen medicatio n Not available Not available Not available 09/10/20242019 161 RxNorm Verif icati on Statu s: confi rmed Not Available [facility] 5 00:16:43 Medications Name Sig Start Date [...] 5 160.02 cm 97.5 [degF] 20 kg/m2 28224.9 4 g 16 /min 94 /min 95 [...] SNOMED-CT Code Diagnosis ICD10 Code Diagnosis Note [id number] Christin Thapa, CEMENTER [place] [address] [place] [address] 09/14/2024 10:35:34 09/14/2024 17:34:01 Chronic obstructive pulmonary disease 77525778 J44.9 Continue Breo Essential hypertension 34394497 I10 Continue Metoprolol Rheumatoid arthritis 698 [address]6564 M06.9 Continue Xeljanz Acute maxi llary sinusitis 29485719 J01.00 Sensamist for allergies Goals Section Goal Description Progress Status Start Date LastModified by Organization Details LastModified Time Activities of Daily Living Performs activities of daily living independently or with minimal assistance None active 2024 RON LEYVA Information not available 09/14/2024 12:39:45 Health Concerns Section Related Observation LastModified by Organization Detai ls LastModified Time None Recorded Concern Status LastModified by Organization Details LastModified Time Chronic obstructive pulmonary disease Active RON LEYVA Not Available 09/14/2024 12: 39:28 Payers Encounter Date Sequence Insurance Name Policy Number Policy Mar Covered Member ID Mar Member ID Guarantor Name 09/14/2024 1 [place]MEDICARE [place]PLACEMENT HMO) [id number] Jacque Worley [id number] Jacque Worley Notes Date Note Type Note [...] OTC meds with minimal relief. Christin Thapa, CEMENTER [address] [facility] [place], [address], [facility] - [employer] 09/14/2024 17:48:21 OBGyn Episode No OBEpisode recorded.
--- OUTSIDE RECORDS SUMMARY | 2024-09-20 11:01 | XMS_ITS | Encounter Summary ---
Author Organization Healthcare Address [address] [place] [address] Care Team Providers Care Hall Clerk Name Role Phone Nico Moncada MD Unavailable [phone] Cali Snyder APRN Primary Care Provider [phone] Elba Alves DO Unavailable [phone] Encounter Details Date Type Department Care Team (Latest Contact Info) Description 08/02/2024 Travel Social History Tobacco Use Types Packs/Day [...] EDT Appointment [facility] Radiology [address] [place] [address] 10/01/2024 10:15 AM EDT Office Visit [facility] Res[facility] [address] [place] [address] Candido Fitzgerald MD [address] [place] [address] 01/01/2025 9:40 AM EDT Office Visit [facility] Gynecology [address] [place] [address] Mark Zurita MD [address] [place] [address] 01/21/2025 12:50 PM EST Office Visit [place] [facility] [address] [place] [address] Lisa Leon, JUANJOSE [address] [place] [address] documented as of this encounter Visit Diagnoses Not on filedocumented in this encounter Additional Health Concerns Assessment Noted Time A fall risk assessment has been complete d for the patient 07/02/2024 11:08 AM EDT A Body Mass Index follow-up plan has been documented for the patient 07/02/2024 11:57 AM EDT documented as of this encounter Care Teams Hall Clerk Relationship Specialty Start Date End Date Cali Snyder APRN [address] [place] [address] PCP - General 01/09/24 Nico Moncada MD [facility] [address] [address] Referring Physician Cardiology 12/21/21 Elba Alves DO [facility] [address] [address] Resident 06/13/24 documented as of this encounter
--- OUTSIDE RECORDS SUMMARY | 2024-09-20 11:01 | XMS_ITS | Encounter Summary ---
Author Organization Healthcare Address [address] [place] [address] Care Team Providers Care Gauge Machine Operator Name Role Phone Nico Moncada MD Unavailable [phone] Cali Snyder APRN Primary Care Provider [phone] Elba Alves DO Unavailable [phone] Encounter Details Date Type Department Care Team (Latest Contact Info) Description 09/17/2024 Travel Social History Tobacco Use Types Packs/Day [...] Functional Status documented as of this encounter Plan of Treatment Upcoming Encounters Date Type Department Care Team ( Contact Info) Description 10/01/2024 9:20 AM EDT Appointment [facility] Radiology [address] [facility] [place] [address] 10/01/2024 10:15 AM EDT Office Visit [facility]ck [facility] Respiratory [address] [place] [address] Candido Fitzgerald MD [address] [place] [address] 01/01/2025 9:40 AM EDT Office Visit [facility] Gynecology [address] [place] [address] Mark Zurita MD [address] [facility] [address] [place] [address] 01/21/2025 12:50 PM EST Office Visit [place] [facility] [address] [place] [address] Lisa Leon, JUANJOSE [address] [place] [address] documented as of this encounter Visit Diagnoses Not on filedocumented in this encounter Additional Health Concerns Assessment Noted Time A fall risk assessment has been complete d for the patient 09/17/2024 3:19 PM EDT A Body Mass Index follow-up plan has been documented for the patient 09/17/2024 3:40 PM EDT documented as of this encounter Care Teams Gauge Machine Operator Relationship Specialty Start Date End Date Cali Snyder, DROP WIRE STRINGER [address] [place] [address] PCP - General 01/09/24 Nico Moncada MD 1210 [facility] 36 [place] [address] Referring Physician Cardiology 12/21/21 Elba Alves DO [address] [place] [address] [place] [address] Resident 06/13/24 documented as of this encounter
--- OUTSIDE RECORDS SUMMARY | 2024-09-20 11:01 | XMS_ITS | Encounter Summary ---
Author Organization [facility] Address [address] [place] [address] Care Team Providers Care District Attorney Name Role Phone Nico Moncada MD Unavailable [phone] Cali Snyder APRN Primary Care Provider [phone] Elba Alves DO Unavailable [phone] Encounter Details Date Type Department Care Team (Late st Contact Info) Description 09/17/2024 Telephone [place] [facility] [address] [place] [address] [place] [address] Social History Tobacco Use Types Packs/Day Years [...] encounter Miscellaneous Notes * Telephone Encounter - Lori Garcia - 09/17/2024 4:14 PM EDT Pharmacy called They were wondering about getting a frequency added on for the prednisone prescription documented in this encounter Plan of Treatment Upcoming Encounters Date Type Department Care Team (Late st Contact Info) Description 10/01/2024 9:20 AM EDT Appointment [facility] Radiology [address] [place] [address] 10/01/2024 10:15 AM EDT Office Visit [facility] Head[facility] Neck [facility] Respiratory [address] [place] [address] Candido Fitzgerald MD [address] [place] [address] 01/01/2025 9:40 AM EDT Office Visit [facility] Gynecology [address] [place] [address] Mark Zurita MD [address] [facility] [address] [place] [address] 01/21/2025 12:50 PM EST Office Visit [place] [facility] [address] [place] [address] Lisa Leon, JUANJOSE [address] [place] [address] documented as of this encounter Visit Diagnoses Not on filedocumented in this encounter Additional Health Concerns Assessment Noted Time A fall risk assessment has been complete d for the patient 09/17/2024 3:19 PM EDT A Body Mass Index follow-up plan has been documented for the patient 09/17/2024 3:40 PM EDT documented as of this encounter Care Teams District Attorney Relationship Specialty Start Date End Date Cali Snyder APRN [address] [place], [place] [address] PCP - General 01/09/24 Nico Moncada MD [address] [address] Referring Physician Cardiology 12/21/21 Elba Alves DO 1210 [facility] 36 [place] [address] Resident 06/13/24 documented as of this encounter
--- OUTSIDE RECORDS SUMMARY | 2024-09-20 11:01 | XMS_ITS | Encounter Summary ---
Author Organization Healthcare Address [address] [place] [address] Care Team Providers Care Medical Claims Analyst Name Role Phone Nico Moncada MD Unavailable [phone] Cali Snyder APRN Primary Care Provider [phone] Elba Alves DO Unavailable [phone] Encounter Details Date Type Department Care Team (Late st Contact Info) Description 09/17/2024 Refill [place] [facility] [address] [place] [address] Shauna Montemayor, PharmD Seropositive rheumatoid arthritis of multiple sites (CMS/HCC) Social History Tobacco Use Types Packs/Day Years [...] Progress Notes - Shauna Montemayor, PharmD - 09/17/2024 3:39 PM EDT 1 medication(s) has been approved per protocol. documented in this encounter Plan of Treatment Upcoming Encounters Date Type Department Care Team (Late st Contact Info) Description 10/01/2024 9:20 AM EDT Appointment [facility] Radiology [address] [place] [address] 10/01/2024 10:15 AM EDT Office Visit [facility] Neck [facility] Respiratory [address] [facility], 2nd [place] [address] Candido Fitzgerald MD [address] [facility] [address] [place] [address] 01/01/2025 9:40 AM EDT Office Visit [facility] Gynecology 800 [facility] [address] [place] [address] Mark Zurita MD [address] [facility] [address] [place] [address] 01/21/2025 12:50 PM EST Office Visit [place] [facility] [address] [place] [address] Lisa Leon, JUANJOSE [address] [place] [address] documented as of this encounter [...] documented as of this encounter Care Teams Medical Claims Analyst Relationship Specialty Start Date End Date Cali Snyder APRN [address] [place] [address] PCP - General 01/09/24 Nico Moncada MD [address] [place] [address] Referring Physician Cardiology 12/21/21 Elba Alves DO [address] [place] [address] Resident 06/13/24 documented as of this encounter
--- OUTSIDE RECORDS SUMMARY | 2024-09-20 11:01 | XMS_ITS | Clinical Summary ---
Author Organization [facility] Address [address] [place] [address] Care Team Providers Care Admissions Officer Name Role Phone Nico Moncada MD Unavailable [phone] Cali Snyder APRN Primary Care Provider Elba Alves DO Unavailable [phone] Allergies Active Allergy Reactions Criticality Noted Date Comments Acetaminophen Unknown - Patient st ates they do not know rxn details Low 01/09/2020 Cephalexin Hives Medium 12/03/2021 Cephalosporins Hives Medium 06/12/2024 Naproxen Other - please docum ent in the comment field,Unknown - Patient states they do not know rxn details Low 10/25/2019 Salicylates Hives Medium 06/12/2024 Medications cholecalcifer ol (Vitamin D-3) 25 MCG (1000 UT) capsule daily. 10/25/19 20 Active alendronate (Fosamax) 70 MG tablet Take 1 tablet by mouth every 7 days. On Sundays06/24/19 21 Active atorvastatin (Lipitor) 20 MG tablet daily. 09/09/19 21 Active pramipexole (Mirapex) 0.125 MG tablet TAKE 1 TABLET BY MOUTH NIGHTLY FOR RESTLESS LEGS 07/08/19 21 Active metoprolol tartrate (Lopressor) 25 MG tablet Take 0.5 tablets by mouth 2 times a day. 03/05/20 21 Active albuterol 108 (90 Base) MCG/ACT inhaler INHALE 2 PUFFS BY MOUTH EVERY 4 TO 6 HOURS NEEDED FOR SHORTNESS OF BREATH OR WHEEZING 10/03/19 21 Active Multiple Vitamin (MULTIVITAMIN S PO) Take by mouth. Activ e estradiol (Estrace) 0.1 MG/GM vaginal cream USING FINGER TECHNIQUE DAILY FOR 2 WEEKS AND THEN TWICE WEEKLY VAGINALLY 10/17/19 24 Active neomycin-poly myxin-dexamet hasone (Maxitrol) 3.5-42994-7.1 ophthalmic suspension 09/05/19 24 Active oxybutynin XL (Ditropan-XL) 10 MG 24 hr tablet Take 1 tablet by mouth daily. 10/18/19 24 Active ondansetron (Zofran) 4 MG tablet Take 1 tablet by mouth every 8 hours as needed for nausea or vomiting. 03/29/19 25 Active BIOTIN PO Take by mouth. Activ e fluticasone (Flonase) 50 MCG/ACT nasal spray SHAKE LIQUID AND USE 1 SPRAY IN EACH NOSTRIL DAILY NEEDED FOR ALLERGY SYMPTOMS 03/29/19 25 Active ASPIRIN 81 MG chewable tablet Chew 1 tablet daily. Active Fluticasone Furoate-Vilan terol (Breo Ellipta) 100-25 MCG/ACT aerosol powder Inhale 1 puff. Activ e doxycycline (Vibramycin) 100 MG capsule Take 1 capsule twice a day by oral route for 10 days. 09/15/19 25 Active hydrocortison e 0.5 % cream APPLY TOPICALLY TO THE AFFECTED AREA TWICE DAILY NEEDED FOR RASH Active nystatin (Mycostatin) 239656 UNIT/ML suspension 09/14/19 25 Active hydroxychloro quine (Plaquenil) 200 MG tabletIndicat ions:Seroposi tive rheumatoid arthritis of multiple sites (CMS/HCC) Take 1 tablet by mouth daily. 30 tablet 5 09/18/19 25 Active predniSONE (Deltasone) 5 MG tablet Take 1-3 tabs as needed for breakthrough pain 30 tablet 2 09/18/19 25 Active Tofacitinib Citrate ER (Xeljanz XR) 11 MG tablet sustained-rel ease 24 hourIndicatio ns:Seropositi ve rheumatoid arthritis of multiple sites (CMS/HCC) Take 1 tablet by mouth daily. 30 tablet 4 09/18/19 25 Active Breo Ellipta 100-25 MCG/INH inhaler INHALE 1 PUFF BY MOUTH DAILY 03/23/19 22 025 Discontinued predniSONE (Deltasone) 5 MG tablet Take 3 tablets for 5 days, then take 2 tablets for 5 days, then take 1 tablet for 5 days. 30 tablet 1 09/01/19 24 025 Discontinued(R eorder) Tofacitinib Citrate ER (Xeljanz XR) 11 MG tablet sustained-rel ease 24 hourIndicatio ns:Seropositi ve rheumatoid arthritis of multiple sites (CMS/HCC) Take 1 tablet by mouth 1 (one) time each day. 30 tablet 3 04/25/19 25 025 Discontinued(R eorder) hydroxychloro quine (Plaquenil) 200 MG tabletIndicat ions:Seroposi tive rheumatoid arthritis of multiple sites (CMS/HCC) Take 1 tablet by mouth daily. 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 08/09/2024 - PSV 1x1 cm lesion on perineal body Path - HGSIL/VIN2, margin+ Healing appropriately - recommend surveillance - RTC 4 months - ok to restart estrogen cream 3x weekly BMI less than 19,adult 11/05/2021 Coronary artery disease 11/04/2021 Hypertension 11/04/2021 Hyperlipidemia 11/04/2021 COPD (chronic obstructive pulmonary disease) GERD (gastroesophageal reflux disease) 2 Fractured sternal wires 11/04/2021 Rheumatoid arthritis 11/04/2021 Encounters Date Type Department Care Team Description 09/19/2024 Results Follow-Up [facility] [address], [address] [place] [address] iLsa Leon APRN 09/17/2024 3:51 PM EDT - 09/17/2024 11:59 PM EDT Hospital Encounter [facility] [address], [address] [place] [address] Seropositive rheumatoid arthritis of multiple sites (CMS/HCC); High risk medication use; Long-term use of immunosuppressant medication Discharge Disposition: Home or Self Care 09/17/2024 3:20 PM EDT Office Visit [facility] [address], [address] [place] [address] Lisa Leon APRN Seropositive rheumatoid arthritis of multiple sites ([facility]) (Primary Dx); High risk medication use; Long-term use of immunosuppressant medication 09/17/2024 Telephone [facility] [address], [address] [place] [address] Jose Lori E 09/17/2024 Refill [place] [id number], [address] [place] [address] Shauna Montemayor, PharmD Seropositive rheumatoid arthritis of multiple sites ([facility]) 09/17/2024 Travel 08/29/2024 11:00 AM EDT Office Visit [facility] Gynecology [address] [place] [address] Venancio Duran MD Severe vulvar dysplasia, histologically confirmed (Primary Dx) 08/29/2024 Travel 08/17/2024 Results Follow-Up [facility] Gynecology [address] [place] [address] Venancio Duran MD 08/17/[address], [address] [place] [address] Shauna Montemayor, PharmD Seropositive rheumatoid arthritis of multiple sites ([facility]) 08/09/2024 3:11 PM EDT Anesthesia Event [facility] [address] [place] [address] Gely Major CRNA, Kortney Weldon MD 08/09/2024 2:45 PM EDT - 08/09/2024 4:45 PM EDT Surgery [facility] [address] [place] [address] Venancio Duran MD SPV [66016 (CPT )] 08/09/2024 1:19 PM EDT - 08/09/2024 6:00 PM EDT Hospital Encounter [facility] [address] [place] [address] Venancio Duran MD Severe vulvar dysplasia, histologically confirmed Discharge Disposition: Home or Self Care 08/09/2024 Travel 08/02/2024 3:30 PM EDT [facility] [address] [place] [address] 08/02/2024 Travel 07/31/2024 11:50 AM EDT Clinical Support [facility] [address] [facility] [address] [place] [address] Carcinoma in situ of vulva 07/31/2024 10:30 AM EDT Office Visit [facility] [address] [place] [address] Mark Zurita MD Severe vulvar dysplasia, histologically confirmed (Primary Dx); Carcinoma in situ of vulva 07/31/2024 Travel 07/02/2024 10:45 AM EDT Office Visit [facility] [address] [facility]nd [place] [address] Candido Fitzgerald MD Lung nodule 07/02/2024 10:10 AM EDT - 07/02/2024 11:59 PM EDT Hospital Encounter [facility] [address] [place] [address] Lung nodule Discharge Disposition: Home or Self Care 07/02/2024 Travel from Last 3 Months Immunizations Immunization Administration Dates Next Due Hep B, Adolescent or Pediatric 02/28/2015 Hep B, adult 09/01/2015,04/01/2015 Influenza Vaccine, Quadrival ent, Adjuvanted 03/06/2021 Influenza, Unspecified 03/06/2021 Influenza, high-dose, quadrivalent 12/29,01/19/2022,03/31/2020,02/08 Pneumococcal Polysaccharide PPV23 03/31/2020, Family History Medical History Relation Name Comments Cardiac disorder Father Diabetes Father Hypertension Father Liver disease Father Cardiac disorder Mother Crohn's disease Mother Hepatitis Mother Anxiety disorder Sibling 1 Conversions - Other Sibling 2 Bipolar disorder (manic depression) Addiction problem Sibling 3 Cardiac disorder Sibling 4 Depression Sibling 5 Anesthesia problems Neg Hx Malig Hyperthermia Neg Hx Relation Name Status Comments Father Mother Sibling 1 Sibling 2 Sibling 3 Sibling 4 Sibling 5 Social History Tobacco Use Types Packs/Day Years Used Date Smoking Tobacco: Former Cigarettes 1 16 2 2019 Passive Smoke Exposure: Past Smokeless Tobacco: Never Tobacco Cessation:Counseling Given: No Alcohol Use Standard Drinks/Week Comments Never 0 [...] on file Sexual Orientation Not on file Last Filed Vital Signs Vital Sign Reading [...] Mass Index 20.39 09/17/2024 3:12 PM EDT Plan of Treatment Upcoming Encounters Date Type Department Care Team (Late st Contact Info) Description 10/01/2024 9:20 AM EDT Appointment [facility] [address] [place] [address] 10/01/2024 10:15 AM EDT Office Visit [facility] [address] [place] [address] Candido Fitzgerald MD [address] [place] [address] 01/01/2025 9:40 AM EDT Office Visit [facility] [address] [place] [address] Mark Zurita MD [address] [place] [address] 01/21/2025 12:50 PM EST Office Visit [facility] [address] [place] [address] Lisa Leon, MEMBERSHIP ASSISTANT [address] [place] [address] Health Maintenance Due Date Last Done Comments [facility]-Bone Density Scan 1950 [facility]-Medicare Annual Wellness (AWV) 1950 [facility]-Infant/Child/Adol SDOH Screenings 1950 [facility]- SDOH Screenings 1970 [facility]-Adult SDOH Screenings 1970 [facility]-DTaP,Tdap,and Td Vaccines (1 - Tdap) 09/05/1971 [facility]-Zoster Vaccines (1 of 2) 09/05/1971 CT Colonography 1997 Colonoscopy 1997 FIT-DNA 1997 FIT 1997 FOBT 1997 Sigmoidoscopy 1997 [facility]-Colorectal Cancer Screening 1997 [facility]-Breast Cancer Screening 2002 [facility]-RSV Vaccine: 60+ Years or (1 - Risk 60-74 years 1-dose series) 2012 GEA-MUEDX-85 Vaccine (2 - Deb risk series) 06/25/2020 05/28/2020 [facility]-Pneumococcal Vaccine: 50+ Years (2 of 2 - PCV) 03/31/2021 03/31/2020, 01/16/2020 [facility]-Influenza Vaccine (#1) 11/19/202412/29, 01/19/2022, 03/06/2021, Additional history exists [facility]-Depression Screening 08/29/2025 08/29/2024 [facility]-Hepatitis C Screening Completed 2021, 04/03/2021, 02/29/2020, Additional history exists HPV Vaccines Aged Out No longer eligi ble based on patient's age to complete this topic [facility]-HIB Vaccines Aged Out No longer e ligible based on patient's age to complete this topic [facility]-Hepatitis A Vaccines Aged Out No longer eligible based on patient's age to complete this topic [facility]-IPV Vaccines Aged Out No longer e ligible based on patient's age to complete this topic [facility]-Rotavirus Vaccines Aged Out No lo nger eligible based on patient's age to complete this topic Procedures Procedure Name Priority Date/Time Associated Diagnosis Comments XR FOOT LEFT 3+ VIEWS Routine 09/17/2024 4:08 PM EDT Seropositive rheumatoid arthritis of multiple sites (CMS/HCC) High risk medication use Long-term use of immunosuppressant medication XR FOOT RIGHT 3+ VIEWS Routine 09/17/2024 4:08 PM EDT Seropositive rheumatoid arthritis of multiple sites (CMS/HCC) High risk medication use Long-term use of immunosuppressant medication XR HAND WRIST BILATERAL 2 VIEWS Routine 09/17/2024 4:08 PM EDT Seropositive rheumatoid arthritis of multiple sites (CMS/HCC) High risk medication use Long-term use of immunosuppressant medication SURGICAL PATHOLOGY EXAM Routine 08/09/2024 3:58 PM EDT Severe vulvar dysplasia, histologically confirmed PB ANESTHESIA PLACEHOLDER Routine 08/09/2024 3:19 PM EDT VA AN ELECTIVE SUPRAGLOTTIC AIRWAY Routine 08/09/2024 3:19 PM EDT VA PART SIMPLE REMV VULVA 08/09/2024 2:59 PM EDT Severe vulvar dysplasia, histologically confirmed COMPREHENSIVE METABOLIC PANEL, PLASMA Routine 07/31/2024 12:03 PM EDT Carcinoma in situ of vulva CBC WITH AUTO DIFFERENTIAL Routine 07/31/2024 12:03 PM EDT Carcinoma in situ of vulva HEMOGLOBIN A1C Routine 07/31/2024 12:03 PM EDT Carcinoma in situ of vulva CT CHEST WO IV CONTRAST Routine 07/02/2024 10:49 AM EDT Lung nodule HEPATITIS C ANTIBODY W/REFLEX TO HCV QUANT PCR Routine 04/03/2021 4:35 PM EST High risk medication use Need for hepatitis C screening test from Last 3 Months or Most Recently Relevant to Health Maintenance Results * XR Hand and Wrist Bilateral 2 [...] heads with MCP joint space narrowing. Diffuse qcdf-tr-pmrokuhs interphalangeal joint space narrowing. Carpal rows are intact. No soft tissue swelling. Left hand/wrist: No acute fracture. Similar radial subluxation of the thumb MCP joint. Similar erosive changes of the thumb metacarpal head. Diffuse nssb-og-zrxblbge interphalangeal joint space narrowing. Carpal rows are [...] metacarpal heads with MCP jointspace narrowing. Diffuse gxsb-se-pallzxil interphalangeal joint spacenarrowing. Carpal rows are intact. No soft tissue swelling. Left hand/wrist: No acute fracture. Similar radial subluxation of thethumb MCP joint. Similar erosive changes of the thumb metacarpal head.Diffuse tvll-ao-xatkriwf interphalangeal joint space narrowing. Carpalrows are intact. [...] on 09/17/2024 4:31 PM Lisa Perkins Edward MEMBERSHIP ASSISTANT IMG XR PROCEDURES Final R esult * [...] heads with MCP joint space narrowing. Diffuse xpzu-ua-fnqvpqxy interphalangeal joint space narrowing. Carpal rows are intact. No soft tissue swelling. Left hand/wrist: No acute fracture. Similar radial subluxation of the thumb MCP joint. Similar erosive changes of the thumb metacarpal head. Diffuse ysnh-jv-oalklmvl interphalangeal joint space narrowing. Carpal rows are [...] metacarpal heads with MCP jointspace narrowing. Diffuse zdva-xi-jajrwzgb interphalangeal joint spacenarrowing. Carpal rows are intact. No soft tissue swelling. Left hand/wrist: No acute fracture. Similar radial subluxation of thethumb MCP joint. Similar erosive changes of the thumb metacarpal head.Diffuse viqs-qv-rzixnnwz interphalangeal joint space narrowing. Carpalrows are intact. [...] on 09/17/2024 4:31 PM Lisa Perkins Edward MEMBERSHIP ASSISTANT IMG XR PROCEDURES Final R esult * XR Foot Left 3+ Views (09/17/2024 [...] heads with MCP joint space narrowing. Diffuse rzzo-zt-hgcfdsmx interphalangeal joint space narrowing. Carpal rows are intact. No soft tissue swelling. Left hand/wrist: No acute fracture. Similar radial subluxation of the thumb MCP joint. Similar erosive changes of the thumb metacarpal head. Diffuse yxbb-os-pawbijaz interphalangeal joint space narrowing. Carpal rows are [...] metacarpal heads with MCP jointspace narrowing. Diffuse adby-hu-cmvwebbv interphalangeal joint spacenarrowing. Carpal rows are intact. No soft tissue swelling. Left hand/wrist: No acute fracture. Similar radial subluxation of thethumb MCP joint. Similar erosive changes of the thumb metacarpal head.Diffuse lqms-pu-irfwgwnl interphalangeal joint space narrowing. Carpalrows are intact. [...] MD on 09/17/2024 4:31 PM Lisa Leon MEMBERSHIP ASSISTANT IMG XR PROCEDURES Final R esult * Surgical Pathology Exam (08/09/2024 3:58 PM EDT) Case Report Surgical Pathology Case: [id number] Authorizing Provider: Venancio Duran MD Collected: 08/09/2024 1558 Ordering Location: [facility] OPERATING ROOM Received: 08/09/2024 1630 Pathologist: Jay [...] histologically confirmed [D07.1] 08/15/2024 3:11 PM EDT [facility] Gross Description A. PERINEAL BODY LESION [...] Posterior tip Cold Time: 32m DANIELLE Hassan ([facility]) 08/15/2024 3:11 PM EDT [facility] [...] inal Result [facility] [address] [place] [address] * VA AN ELECTIVE SUPRAGLOTTIC AIRWAY, PB ANESTHESIA PLACEHOLDER (08/09/2024 3:19 PM EDT) Narrative Gely Major CRNA, DNP - 08/09/2024 3:19 PM EDT Gely Major CRNA, DNP 08/09/2024 3:32 PM Airway Date/Time: 08/09/2024 3:19 PM Reason: elective Airway not difficult General Information and Staff Patient location during procedure: OR FINANCE TEACHER: Gely Major CRNA, DNP Performed: FINANCE TEACHER Patient Condition Indications for airway management: anesthesia Patient position: sniffing Final Airway Details Final airway type: LMALMA Size: 3 LMA Type: normal Additional Comments Atraumatic. No change to dentition or lips from preop assessment. us Israel Ascencio MD ANESTHESIA ORDERABLES Final Re sult * CBC and Differential (07/31/2024 12:03 PM EDT) WBC Count 5.85 3.70 - 10.30 10*3/uL LAB HEMATOLOGY METHOD 07/31/2024 1:08 PM EDT [facility] RBC Count 4.45 3.90 - 5.20 10*6/uL LAB HEMATOLOGY METHOD 07/31/2024 1:08 PM EDT [facility] HGB 13.0 11.2 - 15.7 g/dL LAB HEMATOLOGY METHOD 07/31/2024 1:08 PM EDT [facility] HCT 38.5 34.0 - 45.0 % LAB HEMATOLOGY METHOD 07/31/2024 1:08 PM EDT [facility] Platelet Count 175 155 - 369 10*3/uL LAB HEMATOLOGY METHOD 07/31/2024 1:08 PM EDT [facility] MCV 87 79 - 98 fL LAB HEMATOLOGY METHOD 07/31/2024 1:08 PM EDT [facility] MCH 29.2 26.0 - 32.0 pg LAB HEMATOLOGY METHOD 07/31/2024 1:08 PM EDT [facility] MCHC 33.8 30.7 - 35.5 g/dL LAB HEMATOLOGY METHOD 07/31/2024 1:08 PM EDT [facility] RDW 14.1 11.5 - 14.5 % LAB HEMATOLOGY METHOD 07/31/2024 1:08 PM EDT [facility] MPV 11.1 8.8 - 12.5 fL LAB HEMATOLOGY METHOD 07/31/2024 1:08 PM EDT [facility] nRBC 0.0 <=0.0 per 100 WBCs LAB HEMATOLOGY METHOD 07/31/2024 1:08 PM EDT [facility] Differential Type Automated LAB HEMATOLOGY METHOD 07/31/2024 1:08 PM EDT [facility] Neutrophils % 66 % LAB HEMATOLOGY METHOD 07/31/2024 1:08 PM EDT [facility] Lymphocytes % 23 % LAB HEMATOLOGY METHOD 07/31/2024 1:08 PM EDT [facility] Monocytes % 9 % LAB HEMATOLOGY METHOD 07/31/2024 1:08 PM EDT [facility] Eosinophils % 1 % LAB HEMATOLOGY METHOD 07/31/2024 1:08 PM EDT [facility] Basophils % 1 % LAB HEMATOLOGY METHOD 07/31/2024 1:08 PM EDT [facility] Immature Granulocytes % 0 % LAB HEMATOLOGY METHOD 07/31/2024 1:08 PM EDT [facility] Neutrophils Absolute 3.84 1.60 - 6.10 10*3/uL LAB HEMATOLOGY METHOD 07/31/2024 1:08 PM EDT [facility] Lymphocytes Absolute 1.37 1.20 - 3.90 10*3/uL LAB HEMATOLOGY METHOD 07/31/2024 1:08 PM EDT [facility] Monocytes Absolute 0.51 0.30 - 0.90 10*3/uL LAB HEMATOLOGY METHOD 07/31/2024 1:08 PM EDT [facility] Eosinophils Absolute 0.07 0.00 - 0.50 10*3/uL LAB HEMATOLOGY METHOD 07/31/2024 1:08 PM EDT [facility] Basophils Absolute 0.04 0.00 - 0.10 10*3/uL LAB HEMATOLOGY METHOD 07/31/2024 1:08 PM EDT [facility] Immature Granulocytes Absolute 0.02 0.00 - 0.06 10*3/uL LAB HEMATOLOGY METHOD 07/31/2024 1:08 PM EDT [facility] Blood Venous blood specimen / Unknown Venipuncture / Unknown 07/31/2024 12:03 PM EDT 07/31/2024 12:52 PM EDT [facility] - 07/31/2024 1:08 PM EDT Therapeutic decision making should be based on absolute values, rather than percentages. us Mark Zurita MD LAB BLOOD ORDERABLES Final Res ult [facility] [address] [place] [address] * Hemoglobin A1c (07/31/2024 12:03 PM EDT) Hemoglobin A1c 5.3 <5.7 % 07/31/2024 2:16 PM EDT [facility] Blood Venous blood specimen / Unknown Venipuncture / Unknown 07/31/2024 12:03 PM EDT 07/31/2024 12:52 PM EDT Narrative [facility] - 07/31/2024 2:16 PM EDT HA1C Interpretive Data: Diagnosis of Diabetes: Diabetic > or = 6.5% Pre-diabetic 5.7 to 6.4% Non-diabetic < or = 5.6% Glycemic Targets for Type I and Type II Diabetics: Non- Adults <7.0% Adults <6.0% Children and Adolescents <7.5% Source: [place] [employer]. Standards of medical care in diabetes,2017. Diabetes Care.2017:40 (suppl 1):S1-S135. us Mark Zurita MD LAB BLOOD ORDERABLES Final Res ult [facility] [address] [place] [address] * Comprehensive Metabolic Panel, Plasma (07/31/2024 12:03 PM EDT) Glucose, Plasma 90 74 - 99 mg/dL 07/31/2024 1:09 PM EDT [facility] BUN, Plasma 12 8 - 23 mg/dL 07/31/2024 1:09 PM EDT [facility] Creatinine, Plasma 0.86 0.60 - 1.10 mg/dL 07/31/2024 1:09 PM EDT [facility] BUN/Creatinine Ratio 14 07/31/2024 1:09 PM EDT [facility] Sodium, Plasma 138 136 - 145 mmol/L 07/31/2024 1:09 PM EDT [facility] Potassium, Plasma 4.1 3.6 - 4.9 mmol/L 07/31/2024 1:09 PM EDT [facility] Chloride, Plasma 104 97 - 107 mmol/L 07/31/2024 1:09 PM EDT [facility] CO2, Plasma 26 22 - 29 mmol/L 07/31/2024 1:09 PM EDT [facility] Anion Gap 8 6 - 16 mmol/L 07/31/2024 1:09 PM EDT [facility] Total Calcium, Plasma 9.5 8.9 - 10.2 mg/dL 07/31/2024 1:09 PM EDT [facility] Total Protein 6.7 6.3 - 7.9 g/dL 07/31/2024 1:09 PM EDT [facility] Albumin, Plasma 4.2 3.5 - 5.2 g/dL 07/31/2024 1:09 PM EDT [facility] AST, Plasma 23 10 - 35 U/L 07/31/2024 1:09 PM EDT [facility] ALT, Plasma 16 10 - 35 U/L 07/31/2024 1:09 PM EDT [facility] Alkaline Phosphatase, Plasma 63 46 - 142 U/L 07/31/2024 1:09 PM EDT [facility] Total Bilirubin, Plasma 0.3 0.2 - 1.1 mg/dL 07/31/2024 1:09 PM EDT [facility] eGFRcr 72.3 mL/min/1.7 3m*2 07/31/2024 1:09 PM EDT [facility] Comment:Reported eGFRcr in m L/min/1.73m2 is based the CKD-EPI 2020 equation that does not use a race coefficient. Blood Venous blood specimen / Unknown Venipuncture / Unknown 07/31/2024 12:03 PM EDT 07/31/2024 12:39 PM EDT us Mark Zurita MD LAB BLOOD ORDERABLES Final Res ult [facility] [address] [place] [address] * CT Chest wo IV Contrast (07/02/2024 10:49 AM EDT) Anatomical Region Laterality Modality Chest Computed Tomogra phy Impressions 07/02/2024 11:32 AM EDT New bilateral pulmonary nodules measure up to 6 mm in the left upper lobe. A short-term follow-up in 3 months is recommended. CRITICAL RESULT: No. COMMUNICATION: Per this written report.. Drafted by Maria Eugenia Etienne MD on 07/02/2024 11:29 AM Final report signed by Maria Eugenia Etienne MD on 07/02/2024 11:32 AM Narrative 07/02/2024 11:32 AM EDT CLINICAL INDICATION: lung nodule TECHNIQUE: Imaging of the chest was performed from thoracic inlet through upper abdomen, using spiral technique, without administration of IV contrast. Reformatted images in the coronal and sagittal planes were generated from the axial data set to facilitate diagnostic accuracy. Total DLP (Dose-Length Product): 17.11 mGy.cm. Please note: The reported value represents the total of one or more individual components during the CT acquisition on this date and at this time, and as such, the same value may appear in more than one CT report depending on the interpreting/reporting physicians. COMPARISON: 06/29/2023 FINDINGS: Chest: Lack of IV contrast limits evaluation of thoracic organs and vessels. Aorta/Vessels: The thoracic aorta and coronary arteries are extensively atherosclerotic. Pleural/Pericardial Space: No pneumothorax. No pleural effusions. No pericardial effusion. Lymph Nodes: No lymphadenopathy within the chest. Lungs: Diffuse bilateral upper lobe predominant emphysema. There is a new 6 mm left upper lobe nodule (series 2 image 41). There is also a new 5 mm right apical nodule (series 2 image 19). Biapical pleural-parenchymal thickening. Left upper lobe calcified granuloma. Mediastinum: Otherwise unremarkable. Bones: No acute fracture within the chest. Upper Abdomen: Multiple gallstones. Severe atherosclerosis of the imaged abdominal aorta Procedure Note Maria Eugenia Etienne MD - 07/02/2024 CLINICAL INDICATION: lung nodule TECHNIQUE: Imaging of the chest was performed from thoracic inlet through upperabdomen, using spiral technique, without administration of IV contrast.Reformatted images in the coronal and sagittal planes were generated fromthe axial data set to facilitate diagnostic accuracy. Total DLP (Dose-Length Product): 17.11 mGy.cm. Please note: The reportedvalue represents the total of one or more individual components during theCT acquisition on this date and at this time, and as such, the same valuemay appear in more than one CT report depending on theinterpreting/reporting physicians. COMPARISON: 06/29/2023 FINDINGS: Chest: Lack of IV contrast limits evaluation of thoracic organs and vessels. Aorta/Vessels: The thoracic aorta and coronary arteries are extensivelyatherosclerotic. Pleural/Pericardial Space: No pneumothorax. No pleural effusions. Nopericardial effusion. Lymph Nodes: No lymphadenopathy within the chest. Lungs: Diffuse bilateral upper lobe predominant emphysema. There is a new6 mm left upper lobe nodule (series 2 image 41). There is also a new 5 mmright apical nodule (series 2 image 19). Biapical pleural-parenchymalthickening. Left upper lobe calcified granuloma. Mediastinum: Otherwise unremarkable. Bones: No acute fracture within the chest. Upper Abdomen: Multiple gallstones. Severe atherosclerosis of the imagedabdominal aorta IMPRESSION: New bilateral pulmonary nodules measure up to 6 mm in the left upper lobe.A short-term follow-up in 3 months is recommended. CRITICAL RESULT: No. COMMUNICATION: Per this written report.. Drafted by Maria Eugenia Etienne MD on 07/02/2024 11:29 AM Final report signed by Maria Eugenia Etienne MD on 07/02/2024 11:32 AM Lupe Church MD IMG CT PROCEDURES Final R esult * (ABNORMAL) Hepatitis C Antibody (04/03/2021 4:35 PM EST) Hepatitis C Antibody Positive( A) Negative 04/03/2021 8:34 PM EST [facility] Comment:This specimen is gee ng sent for confirmation by RT-PCR. Blood Venous blood specimen / Unknown Venipuncture / Unknown 04/03/2021 4:35 PM EST 04/03/2021 4:35 PM EST [facility] BLOOD ORDERABLES Final Resul t [facility] [address] [place] [address] from Last 3 Months or Most Recently Relevant to Health Maintenance Insurance [facility] MEDIC[facility] Care Teams Admissions Officer Relationship Specialty Start Date End Date Cali Snyder APRN [address] [place] [address] PCP - General 01/09/24 Nico Moncada MD [address] [address] Referring Physician Cardiology 12/21/21 Elba Alves DO [address] [address] Resident 06/13/24
== END 2024-09-20 23:59 | disposition home or self-care (01) ==
LOC: RAD 10:49
PROVIDERS: PCP Family Medicine; Visit Provider Family Medicine
DX: Z12.31 Encounter for screening mammogram for malignant neoplasm of breast (principal); R92.333 Mammographic heterogeneous density, bilateral breasts
CPT/HCPCS: 77063; 77067

== ENCOUNTER 2024-10-12 09:12 | Outpatient (CLI) | payer MEDICARE, SELFPAY ==
--- OUTSIDE RECORDS SUMMARY | 2020-01-26 06:00 | XMS_ITS | Encounter Summary ---
Author Organization [facility] [place] [address] Care Team Providers Care Environmental Services Tech Name Role Phone Unavailable Primary Care Provider Unavailabl e Encounter Details Date Type Department Care Team (Late st Contact Info) Description 01/26/2020 5:00 AM EST Hospital Encounter [facility] Referral Lab [address] [phone] Haroon Cain MD [address] [place] [address] Social History Tobacco Use Types Packs/Day Years [...]
--- OUTSIDE RECORDS SUMMARY | 2024-08-29 11:00 | XMS_ITS | Encounter Summary ---
Author Organization Healthcare Address [address] [id number] Care Team Providers Care Convertible Sofa Bedspring Tester Name Role Phone Nico Moncada MD Unavailable [phone] Cali Snyder APRN Primary Care Provider [phone] Elba Alves DO Unavailable [phone] Encounter Details Date Type Department Care Team (Late st Contact Info) Description 08/29/2024 11:00 AM EDT Office Visit [facility] [address] [place] [address] Venancio Duran MD [address] [facility] [address] [place] [address] Severe vulvar dysplasia, histologically confirmed (Primary Dx) Social History Tobacco Use Types Packs/Day Years Used Date Smoking Tobacco: Former Cigarettes 1 16 2 2019 Passive Smoke Exposure: Past Smokeless Tobacco: Never Alcohol Use Standard Drinks/Week Comments Never 0 (1 standard drink = 0.6 oz pur e alcohol) PHQ-2 Answer Date Recorded Patient Health Questionnaire-2 Score 0 08/29/2024 PHQ-2A Answer Date Recorded Patient Health Questionnaire-2 Score 0 09/01/2022 Comments No Sex and Gender Information Value Date Recorded Sex Assigned at Not on file Legal Sex Female 7:42 PM EDT Gender Identity Not on file Sexual Orientation Not on file documented as of this encounter Last Filed Vital Signs Vital Sign Reading Time Taken Comments Blood Pressure 124/56 08/29/2024 11:24 AM EDT 130/68 Pulse 60 08/29/2024 11:24 AM EDT Temperature 36.6 C (97.9 F) 08/29/2024 11:24 AM EDT Respiratory Rate 16 08/29/2024 11:2 4 AM EDT Oxygen Saturation 98% 08/29/2024 11: 24 AM EDT Inhaled Oxygen Concentration - - Weight 52.6 kg (115 lb 15.4 oz) 025 11:24 AM EDT Height - - Body Mass Index 19.9 07/31/2024 10:51 AM EDT documented in this encounter Functional Status * Over the past 2 weeks, how often have you been bothered by any of the following problems? Question Answer Date of Assessment Author Little interest or pleasure in doing things Not at all 08/29/2024 11:26 AM EDT Celine Murray Feeling down, depressed, or hopeless Not at all 08/29/2024 11:26 AM EDT Celine Murray Patient Health Questionnaire -2 Score 0 08/29/2024 11:26 AM EDT Celine Murray documented as of this encounter Miscellaneous Notes * Progress Notes - Venancio Duran MD - 08/29/2024 11:00 AM EDT Images from the original note were not included. Patient ID: Jacque Worley is a 73 y.o. female. Referring Physician: No referring provider defined for this encounter. 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 HENT: Negative. Eyes: Negative. Respiratory: Negative. Cardiovascular: Negative. Gastrointestinal: Negative. Endocrine: Negative. Genitourinary: Negative. Musculoskeletal: Negative. Skin: Negative. Neurological: Negative. Hematological: Negative. Psychiatric/Behavioral: Negative. Oncology History No history exists. Past Medical History[1] Surgical History[2] Medications Ordered Prior to Encounter[3] Allergies[4] Social History[5] Family History[6] Employer: No address on file. Travel History Relevant International Travel History: Travel Screening No screening recorded since 08/25/24 0825 Travel History Travel since 07/26/24 No documented travel since 07/26/24 Relevant Domestic Travel History: N/A Immunizations Reviewed VACCINE / DOSE DATE DATE DATE DATE DATE Flu 02/08/2019 03/31/2020 03/06/2021 01/19/2022 12/29/2022 Tetanus Pneumovax 01/16/2020 03/31/2020 Shingles Objective Physical Exam: Vital Signs for this encounter: BSA: 1.54 meters squared Visit Vitals BP 124/56 (BP Location: Right arm, Patient Position: Sitting, BP Cuff Size: Adult) Comment: 130/68 Pulse 60 Temp 36.6 ??C (97.9 ??F) (Temporal) Resp 16 Wt 52.6 kg (115 lb 15.4 oz) SpO2 98% BMI 19.90 kg/m?? OB Status Postmenopausal Smoking Status Former BSA 1.54 m?? Physical Exam Exam conducted with a mica parts sprayer present. Constitutional: Appearance: Normal appearance. She is well-developed. HENT: Head: Normocephalic and atraumatic. Eyes: General: No scleral icterus. Conjunctiva/sclera: Conjunctivae normal. Neck: Thyroid: No thyromegaly. Vascular: No JVD. Genitourinary: General: Normal vulva. Comments: Incision healing appropriately Musculoskeletal: General: Normal range of motion. Cervical back: Normal range of motion. Right lower leg: No edema. Left lower leg: No edema. Lymphadenopathy: Cervical: No cervical adenopathy. Skin: Findings: No rash. Neurological: General: No focal deficit present. Mental Status: She is alert and oriented to person, place, and time. Gait: Gait normal. Psychiatric: Mood and Affect: Mood normal. Behavior: Behavior normal. Judgment: Judgment normal. Performance Status: Asymptomatic Pain Scale: 0 Results: WBC Count (10*3/uL) Date/Time Value 07/31/2024 1203 5.85 Hemoglobin Reduced, Arterial, Whole Blood (%) Date/Time Value 12/26/2019 0916 50.6 HGB (g/dL) Date/Time Value 07/31/2024 1203 13.0 HCT (%) Date/Time Value 07/31/2024 1203 38.5 Platelet Count (10*3/uL) Date/Time Value 07/31/2024 1203 175 LDH, Plasma (U/L) Date/Time Value 01/11/2020 0925 955 (H) Creatinine, Plasma (mg/dL) Date/Time Value 07/31/2024 1203 0.86 AST, Plasma (U/L) Date/Time Value 07/31/2024 1203 23 Final Diagnosis (no units) Date/Time Value 08/09/2024 1558 A. VULVA, PERINEAL BODY LESION, EXCISION: - HIGH-GRADE SQUAMOUS INTRAEPITHELIAL LESION (HSIL, OLIVIA II, MODERATE DYSPLASIA). - THE HIGH-GRADE DYSPLASIA EXTENDS TO THE ANTERIOR AND POSTERIOR TIPS. 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 Encounter time 20 min Venancio Duran MD [facility] [address] [place] [address] [facility] [address] Dept: [phone] Dept Loc: [phone] [1] Past Medical History: Diagnosis Date COPD [...] WIRES REMOVAL 12/09/2021 Dr Jose Delgado - [facility] TUBAL LIGATION N/A VULVA SURGERY Right 08/09/2024 PSV for dysplasia [3] Current Outpatient Medications on File Prior to Visit Medication Sig Dispense Refill albuterol 108 (90 Base) MCG/ACT inhaler INHALE 2 PUFFS BY MOUTH EVERY 4 TO 6 HOURS NEEDED FOR SHORTNESS OF BREATH OR WHEEZING alendronate (Fosamax) 70 MG tablet Take 1 tablet by mouth every 7 days. On Sundays ASPIRIN 81 MG chewable tablet Chew 1 tablet daily. atorvastatin (Lipitor) 20 MG tablet daily. BIOTIN PO Take by mouth. Breo Ellipta 100-25 MCG/INH inhaler INHALE 1 PUFF BY MOUTH DAILY cholecalciferol (Vitamin D-3) 25 MCG (1000 UT) capsule daily. estradiol (Estrace) 0.1 MG/GM vaginal cream USING FINGER TECHNIQUE DAILY FOR 2 WEEKS AND THEN TWICEWEEKLY VAGINALLY fluticasone (Flonase) 50 MCG/ACT nasal spray SHAKE LIQUID AND USE 1 SPRAY IN EACH NOSTRIL DAILY NEEDED FOR ALLERGY SYMPTOMS hydroxychloroquine (Plaquenil) 200 MG tablet Take 1 tablet by mouth daily. 30 tablet 0 metoprolol tartrate (Lopressor) 25 MG tablet Take 0.5 tablets by mouth 2 times a day. Multiple Vitamin (MULTIVITAMINS PO) Take by mouth. (Patient not taking: Reported on 07/31/2024) ccddocbj-lceygrsnq-wquplglmwieft (Maxitrol) 3.5-87825-7.1 ophthalmic suspension (Patient not taking: No sig reported) ondansetron (Zofran) 4 MG tablet Take 1 tablet by mouth every 8 hours as needed for nausea or vomiting. (Patient not taking: No sig reported) oxybutynin XL (Ditropan-XL) 10 MG 24 hr tablet Take 1 tablet by mouth daily. pramipexole (Mirapex) 0.125 MG tablet TAKE 1 [...] 1(one) time each day. 30 tablet 3 No current facility-administered medications on file prior to visit. [4] Allergies Allergen Reactions Cephalexin Hives Acetaminophen Unknown - Patient states they do not know rxn details Naproxen Other - please document in the comment field and Unknown - Patient states they do not knowrxn details [5] Social History Tobacco Use Smoking status: Former Current packs/day: 0.00 Average packs/day: 1 pack/day for 16.0 years (16.0 ttl pk-yrs) Types: Cigarettes Start date: 2003 Quit date: 2020 Years since quittin.4 Passive exposure: Past Smokeless tobacco: Never Vaping Use Vaping status: Never Used Substance Use Topics Alcohol use: Never Drug use: Never Comment: Drug use: No drug use [6] Family History Problem Relation Name Age of Onset Cardiac disorder Mother Crohn's disease Mother Hepatitis Mother Cardiac disorder Father Diabetes Father Hypertension Father Liver disease Father Anxiety disorder Sibling Conversions - Other Sibling Bipolar disorder (manic depression) Addiction problem Sibling Cardiac disorder Sibling Depression Sibling Anesthesia problems Neg Hx Malig Hyperthermia Neg Hx documented in this encounter Plan of Treatment Upcoming Encounters Date Type Department Care Team (Late st Contact Info) Description 01/01/2025 9:40 AM EDT Office Visit [facility] [address] [place] [address] Mark Zurita MD [address] [facility] [address] [place] [address] 01/21/2025 12:50 PM EST Office Visit [place] [facility] [address] [place] [address] Lisa Leon, JETTING MACHINE OPERATOR [address] [place] [address] 09/30/2025 9:30 AM EDT Appointment [facility] [address] [place] [address] 09/30/2025 10:30 AM EDT Office Visit [facility] [address] [place] [address] Candido Fitzgerald MD [address] [facility] [address] [place] [address] documented as of this encounter Visit Diagnoses Diagnosis Severe vulvar dysplasia, histologically confirmed- Primary Carcinoma in situ, vulva documented in this encounter Additional Health Concerns Assessment Noted Time A fall risk assessment has been complete d for the patient 08/29/2024 11:26 AM EDT A Body Mass Index follow-up plan has been documented for the patient 07/02/2024 11:57 AM EDT documented as of this encounter Care Teams Convertible Sofa Bedspring Tester Relationship Specialty Start Date End Date Cali Snyder APRN [address] [place] [address] PCP - General 01/09/24 Nico Moncada MD [address] [place] [address] Referring Physician Cardiology 12/21/21 Elba Alves DO [facility] [address] [address] Resident 06/13/24 documented as of this encounter
--- OUTSIDE RECORDS SUMMARY | 2024-09-17 15:20 | XMS_ITS | Encounter Summary ---
Author Organization Healthcare Address [address] [place] [address] Care Team Providers Care Landscape Drafter Name Role Phone Nico Moncada MD Unavailable [phone] Cali Snyder APRN Primary Care Provider [phone] Elba Alves DO Unavailable [phone] Reason for Visit * Reason Comments Follow-up Encounter Details Date Type Department Care Team (Latest Contact Info) Description 09/17/2024 3:20 PM EDT Office Visit [facility] [address] [place] [address] Lisa Fowler APRN [address] [place] [address] Seropositive rheumatoid arthritis of multiple [...] of Seropositive rheumatoid arthritis of multiple sites ([facility]) [M05.79] Subjective HPI Jacque Worley is a [...] with rheumatology Dr. Oliver and changes to [facility] rheumatology due to insurance coverage. [...] Diagnosis Date COPD (chronic obstructive pulmonary disease) ([facility]) COVID-19 11/13/2021 Heart disease Hepatitis C Personal history of other diseases of the digestive system History of gallstones Personal history of other diseases of the musculoskeletal system and connective tissue History of osteoporosis Rheumatoid arthritis ([facility]) Skin cancer UTI (urinary tract infection) UTI (urinary tract infection) Past Surgical History: Procedure Laterality Date CARDIAC CATHETERIZATION N/A CATARACT EXTRACTION N/A CORONARY ARTERY BYPASS GRAFT N/A 12/25/2019 CABG x 1 - AGUILAR to LAD (Dr Jose Delgado) LEG SURGERY N/A STERNAL WIRES REMOVAL 12/09/2021 Dr Jose Delgado - [facility] TUBAL LIGATION N/A VULVA SURGERY Right [...] Status: Two children Employed [employer] Financial Resource Strain: Not on file Food [...] Multiple Vitamin (MULTIVITAMINS PO) Take by mouth. xrivpwbh-flstndyfe-mcjjeydnzxzlv (Maxitrol) 3.5-91268-0.1 ophthalmic suspension nystatin (Mycostatin) 241682 UNIT/ML suspension ondansetron (Zofran) 4 MG tablet [...] Case Report 08/09/2024 Final Value:Surgical Pathology Case: [id number] Authorizing Provider: Venancio Duran MD Collected: 08/09/2024 2799 Ordering Location: [facility] Received: 08/09/2024 1630 Pathologist: [...] Posterior tip Cold Time: 32m DANIELLE Hassan ([facility]) Note: 08/09/2024 Final Value:A resident was involved [...] today 2. High risk medication use 3. residential use of immunosuppressant medication She has appt [...] Gynecology [address] [place] [address] Mark Zurita MD [address] [place] [facility] [address] [place] [address] 01/21/2025 12:50 PM EST Office Visit [facility] [address] [place] [address] Lisa Fowler APRN [address] [place] [address] 09/30/2025 9:30 AM EDT Appointment [facility] [address] [place] [address] 09/30/2025 10:30 AM EDT Office Visit [facility] [address] [place] [address] Candido Fitzgerald MD [address] [place] [address] documented as of this encounter Results * [...] heads with MCP joint space narrowing. Diffuse odbi-da-ffsdzsse interphalangeal joint space narrowing. Carpal rows are intact. No soft tissue swelling. Left hand/wrist: No acute fracture. Similar radial subluxation of the thumb MCP joint. Similar erosive changes of the thumb metacarpal head. Diffuse dhrc-sc-wfbwiyka interphalangeal joint space narrowing. Carpal rows are [...] metacarpal heads with MCP jointspace narrowing. Diffuse pcgx-sp-ywginupr interphalangeal joint spacenarrowing. Carpal rows are intact. No soft tissue swelling. Left hand/wrist: No acute fracture. Similar radial subluxation of thethumb MCP joint. Similar erosive changes of the thumb metacarpal head.Diffuse sgkn-zf-cvgbabqi interphalangeal joint space narrowing. Carpalrows are intact. [...] MD on 09/17/2024 4:31 PM Lisa Fowler BELL NECK HAMMERER IMG XR PROCEDURES Final R esult * [...] heads with MCP joint space narrowing. Diffuse chhs-ki-jyrzsvtn interphalangeal joint space narrowing. Carpal rows are intact. No soft tissue swelling. Left hand/wrist: No acute fracture. Similar radial subluxation of the thumb MCP joint. Similar erosive changes of the thumb metacarpal head. Diffuse xszc-gu-ocwpbhqz interphalangeal joint space narrowing. Carpal rows are [...] metacarpal heads with MCP jointspace narrowing. Diffuse yufc-gf-pimthxdd interphalangeal joint spacenarrowing. Carpal rows are intact. No soft tissue swelling. Left hand/wrist: No acute fracture. Similar radial subluxation of thethumb MCP joint. Similar erosive changes of the thumb metacarpal head.Diffuse uqzn-nt-sqnzzqvg interphalangeal joint space narrowing. Carpalrows are intact. [...] MD on 09/17/2024 4:31 PM Lisa Fowler BELL NECK HAMMERER IMG XR PROCEDURES Final R esult * [...] heads with MCP joint space narrowing. Diffuse lqsc-tr-xtyldnwd interphalangeal joint space narrowing. Carpal rows are intact. No soft tissue swelling. Left hand/wrist: No acute fracture. Similar radial subluxation of the thumb MCP joint. Similar erosive changes of the thumb metacarpal head. Diffuse tvxo-ut-ytxmuyqs interphalangeal joint space narrowing. Carpal rows are [...] metacarpal heads with MCP jointspace narrowing. Diffuse xnfm-cy-izfdormn interphalangeal joint spacenarrowing. Carpal rows are intact. No soft tissue swelling. Left hand/wrist: No acute fracture. Similar radial subluxation of thethumb MCP joint. Similar erosive changes of the thumb metacarpal head.Diffuse dfjh-vc-puwhvyfg interphalangeal joint space narrowing. Carpalrows are intact. [...] documented as of this encounter Care Teams Landscape Drafter Relationship Specialty Start Date End Date Cali Snyder APRN [address] [place] [address] PCP - General 01/09/24 Nico Moncada MD [address] [place], [place] [id number] Referring Physician Cardiology 12/21/21 Elba Alves DO [address] [address] Resident 06/13/24 documented as of this encounter
--- OUTSIDE RECORDS SUMMARY | 2024-09-17 15:51 | XMS_ITS | Encounter Summary ---
Author Organization Healthcare Address [address] [place] [address] Care Team Providers Care Cosmetic Surgeon Name Role Phone Nico Moncada MD Unavailable [phone] Cali Snyder APRN Primary Care Provider [phone] Elba Alves DO Unavailable [phone] Encounter Details Date Type Department Care Team (Latest Contact Info) Description 09/17/2024 3:51 PM EDT - 09/17/2024 11:59 PM EDT Hospital Encounter [facility] [address] [place] [address] Seropositive rheumatoid arthritis of multiple [...] PO) Take by mouth. neomycin-polymyx in-dexamethasone (Maxitrol) 3.5-52204-0.1 ophthalmic suspension 09/05/2023 nystatin (Mycostatin) [id number] UNIT/ML suspension 09/13/2024 ondansetron (Zofran) 4 MG [...] [facility] [address] [place] [phone] Mark Zurita MD [address] [facility] [address] [place] [address] 01/21/2025 12:50 PM EST Office Visit [place] [facility] [address] [place] [address] Lisa Leon, JUANJOSE [address] [place] [address] 09/30/2025 9:30 AM EDT Appointment [facility] [address] [place] [address] 09/30/2025 10:30 AM EDT Office Visit [facility] [address] [place] [address] Candido Fitzgerald MD [address] [place] [address] documented as of this encounter Procedures Procedure Name Priority Date/Time Associated Diagnosis Comments XR HAND WRIST BILATERAL 2 VIEWS Routine 09/17/2024 4:08 PM EDT Seropositive rheumatoid arthritis of multiple sites ([facility]) High risk medication use Long-term use of immunosuppressant medication XR FOOT RIGHT 3+ VIEWS Routine 09/17/2024 4:08 PM EDT Seropositive rheumatoid arthritis of multiple sites ([facility]) High risk medication use Long-term use of immunosuppressant medication XR FOOT LEFT 3+ VIEWS Routine 09/17/2024 4:08 PM EDT Seropositive rheumatoid arthritis of multiple sites ([facility]) High risk medication use Long-term use of [...] heads with MCP joint space narrowing. Diffuse xevn-fb-wlebbwzu interphalangeal joint space narrowing. Carpal rows are intact. No soft tissue swelling. Left hand/wrist: No acute fracture. Similar radial subluxation of the thumb MCP joint. Similar erosive changes of the thumb metacarpal head. Diffuse dhrn-ws-djpraaxi interphalangeal joint space narrowing. Carpal rows are [...] metacarpal heads with MCP jointspace narrowing. Diffuse ougk-bh-qkvabqxb interphalangeal joint spacenarrowing. Carpal rows are intact. No soft tissue swelling. Left hand/wrist: No acute fracture. Similar radial subluxation of thethumb MCP joint. Similar erosive changes of the thumb metacarpal head.Diffuse hulc-ou-peitgicv interphalangeal joint space narrowing. Carpalrows are intact. [...] MD on 09/17/2024 4:31 PM Lisa Leon [employer]CH[employer]ECT IMG XR PROCEDURES Final R esult * [...] heads with MCP joint space narrowing. Diffuse gyrt-ip-wzonobrt interphalangeal joint space narrowing. Carpal rows are intact. No soft tissue swelling. Left hand/wrist: No acute fracture. Similar radial subluxation of the thumb MCP joint. Similar erosive changes of the thumb metacarpal head. Diffuse xaot-kd-wsbqjdtj interphalangeal joint space narrowing. Carpal rows are [...] metacarpal heads with MCP jointspace narrowing. Diffuse mdbf-dg-ixpffdwk interphalangeal joint spacenarrowing. Carpal rows are intact. No soft tissue swelling. Left hand/wrist: No acute fracture. Similar radial subluxation of thethumb MCP joint. Similar erosive changes of the thumb metacarpal head.Diffuse cnpg-vr-smbpxgeh interphalangeal joint space narrowing. Carpalrows are intact. [...] MD on 09/17/2024 4:31 PM Lisa Leon [employer] ARCHITECT IMG XR PROCEDURES Final R esult * [...] heads with MCP joint space narrowing. Diffuse qjyi-wr-mjlmglnt interphalangeal joint space narrowing. Carpal rows are intact. No soft tissue swelling. Left hand/wrist: No acute fracture. Similar radial subluxation of the thumb MCP joint. Similar erosive changes of the thumb metacarpal head. Diffuse wzhs-ue-axmetlks interphalangeal joint space narrowing. Carpal rows are [...] metacarpal heads with MCP jointspace narrowing. Diffuse panv-cc-agsjfibd interphalangeal joint spacenarrowing. Carpal rows are intact. No soft tissue swelling. Left hand/wrist: No acute fracture. Similar radial subluxation of thethumb MCP joint. Similar erosive changes of the thumb metacarpal head.Diffuse jheb-fo-axqtsfiv interphalangeal joint space narrowing. Carpalrows are intact. [...] Diagnosis Seropositive rheumatoid arthritis of multiple sites ([facility]) High risk medication use Long-term use of immunosuppressant medication documented in this encounter Additional Health Concerns Assessment Noted Time A fall risk assessment has been complete d for the patient 09/17/2024 3:19 PM EDT A Body Mass Index follow-up plan has been documented for the patient 09/17/2024 3:40 PM EDT documented as of this encounter Care Teams Cosmetic Surgeon Relationship Specialty Start Date End Date Cali Snyder APRN [address] [place] [address] [id number] PCP - General 01/09/24 Nico Moncada MD [address] [phone] Referring Physician Cardiology 12/21/21 Elba Alves DO [address] [address] Resident 06/13/24 documented as of this encounter
--- OUTSIDE RECORDS SUMMARY | 2024-10-01 09:20 | XMS_ITS | Encounter Summary ---
Author Organization Healthcare Address [address] [place] [address] Care Team Providers Care Rooming House Operator Name Role Phone Nico Moncada MD Unavailable [phone] Cali Snyder APRN Primary Care Provider [phone] Elba Alves DO Unavailable [phone] Reason for Referral * Imaging (Routine) - Closed Specialty Diagnoses / Procedures Referred By Norma webb Referred To Contact Radiology Diagnoses Lung nodule Procedures CT Chest wo IV Contrast Candido Fitzgerald MD [address] [address] Phone: tel: fax: Referral ID Status Reason Start Date Expiration Date Visits Re quested Visits Authorized [id number] Closed 07/02/2024 01/01/2026 1 1 Reason for Visit * Imaging (Routine) - Closed Specialty Diagnoses / Procedures Referred By Norma webb Referred To Contact Radiology Diagnoses Lung nodule Procedures CT Chest wo IV Contrast Candido Fitzgerald MD [address] [address] Phone: tel: fax: Referral ID Status Reason Start Date Expiration Date Visits Re quested Visits Authorized [id number] Closed 07/02/2024 01/01/2026 1 1 Encounter Details Date Type Department Care Team (Latest Contact Info) Description 10/01/2024 9:20 AM EDT - 10/01/2024 11:59 PM EDT Hospital Encounter [facility] [address] [place] [address] Lung nodule Discharge Disposition: Home or Self [...] PO) Take by mouth. neomycin-polymyx in-dexamethasone (Maxitrol) 3.5-14165-3.1 ophthalmic suspension 09/05/2023 nystatin (Mycostatin) 520269 UNIT/ML suspension 09/13/2024 ondansetron (Zofran) 4 MG [...] Gynecology [address] [place] [address] Mark Zurita MD [address] [place] [address] 01/21/2025 12:50 PM EST Office Visit [facility] [address] [place] [address] Lisa Leon, RN DISEASE MANAGEMENT [address] [place] [address] 09/30/2025 9:30 AM EDT Appointment [facility] [address] [place] [address] 09/30/2025 10:30 AM EDT Office Visit [facility] [address] [place] [address] Candido Fitzgerald MD [address] [place] [address] documented as of this encounter [...] documented as of this encounter Care Teams Rooming House Operator Relationship Specialty Start Date End Date Cali Snyder APRN [address] [place] [address] PCP - General 01/09/24 Nico Moncada MD [address] [place] [address] Referring Physician Cardiology 12/21/21 Elba Alves DO [address] [place], [place] [address] Resident 06/13/24 documented as of this encounter
--- OUTSIDE RECORDS SUMMARY | 2024-10-01 10:15 | XMS_ITS | Encounter Summary ---
Author Organization Healthcare Address [address] [place] [address] Care Team Providers Care Antique Collector Name Role Phone Nico Moncada MD Unavailable [phone] Cali Snyder APRN Primary Care Provider [phone] Elba Alves DO Unavailable [phone] Reason for Referral * Imaging (Routine) - Pending Review Specialty Diagnoses / Procedures Referred By Norma webb Referred To Contact Radiology Diagnoses Lung nodule Procedures CT Chest wo IV Contrast Candido Fitzgerald MD [address] [address] Phone: tel: fax: Referral ID Status Reason Start Date Expiration Date V isits Requested Visits Authorized [id number] Pending Review 10/01/2024 04/02/2026 1 1 Reason for Visit * Reason Comments Follow-up Encounter Details Date Type Department Care Team ([facility] Contact Info) Description 10/01/2024 10:15 AM EDT Office Visit [facility] [address] [place] [address] Candido Fitzgerald MD [address] [address] Lung nodule Social History Tobacco Use Types Packs/Day Years [...] Sign Reading Time Taken Comments Blood Pressure 130/62 10/01/2024 10:26 AM EDT Pulse 59 10/01/2024 10:26 AM EDT Temperature 36.9 C (98.4 F) 10/01/2024 10:26 AM EDT Respiratory Rate 16 10/01/2024 10:26 AM EDT Oxygen Saturation 99% 10/01/2024 10:26 AM EDT Inhaled Oxygen Concentration - - Weight 51.5 kg (113 lb 8.6 oz) 10/01/2024 10:26 AM EDT Height - - Body Mass Index 20.11 09/17/2024 3:12 PM EDT documented in this encounter Miscellaneous Notes * Progress Notes - Latha Gregorio PA - 10/01/2024 10:15 AM EDT Images from the original note were not included. [facility] Department of Surgery Section of Thoracic Surgery Outpatient Clinic Note Diagnosis: lung cancer surveillance ISO stable lung nodules Procedure: n/a Pathology: n/a Interval History: Jacque Worley is a 74 y.o. female with extensive PMHx including HTN, HL, CAD s/p CABG (dec 2021), and rheumatoid arthritis (on Plaquenil and Xeljanz) , presenting to clinic for annual lung cancer surveillance in the setting of multiple small lung nodules that were found incidentally on imaging in 2019. She was noted to have new 6mm JANENE nodule and 5mm R apical nodule on imaging 3 months ago and presents today for short interval CT Chest. She has been in her usual state of healthand overall doing well. ROS: General: no fevers or chills, no heat or cold intolerance, no subjective weight loss HEENT: no changes in vision, no sore throat, no changes in hearing, no tinnitus, no nasal drainage CV: no chest pain, no palpitations, no lightheadedness, no PND, no orthopnea, no LE swelling, no claudication Pulm: no shortness of breath, no cough, no hemoptysis GI: no nausea, no vomiting, no abdominal pain, no constipation, no diarrhea, no melenal, no hematochezia, no dysphagia, no heartburn Skin: no rash Neuro: no numbness, no tingling, no headache, no difficulties with speech, no gait disturbance Heme: no easy bruising, no bleeding from the gums Endo: No polyuria or polydypsia Psych: no depression or anxiety Physical exam: Visit Vitals BP 130/62 (BP Location: Right arm) Pulse 59 Temp 36.9 ??C (98.4 ??F) (Oral) Wt 51.5 kg (113 lb 8.6 oz) SpO2 99% BMI 20.11 kg/m?? General: alert and oriented, appropriate Lungs: CTA B, no wheezes or rhonchi Heart: RRR, no murmurs Abdomen: soft NT/ND, normal bowel sounds Lymph nodes: no palpable supraclavicular or cervical adenopathy Extremities: no peripheral edema Skin: no rash, no cyanosis and warm to touch Psychiatric: oriented to person/place/time and normal mood/affect Imaging: CT Chest: interval decrease in right apex nodule. Interval development of nodule in left apex. Otherwise, remaining nodules stable. Additional Testing: None Assessment and Plan: Jacque Worley is a 74 y.o. female who presents today with annual LDCT chest for lung cancer screening. She has known pulmonary nodules that have been stable for greater than 3 years. Previously noted new nodules on CT Chest in June are now smaller. She has a new nodule in the left apex. Will plan for follow up with CT Chest in 6 months. Images and pathology reviewed and discussed with the patient at today's visit and all questions answered. Patient will return to clinic in [address] without contrast. The patient understands this plan and will call our office for any additional questions or concerns. DANIELLE Zuniga 10/01/24 10:50 AM Cosigned by Candido Fitzgerald MD at 10/05/2024 8:44 AM EDT Associated attestation - Candido Fitzgerald MD - 10/05/2024 8:44 AM EDT I attest to being involved in more than half the total time in patient care. documented in this encounter Plan of Treatment Upcoming Encounters Date Type Department Care Team ([facility] st Contact Info) Description 01/01/2025 9:40 AM EDT Office Visit [facility] Gynecology [address] [facility] [address] [place] [address] Mark Zurita MD 800 [facility] Madhuri [facility] [address] [place] [address] 01/21/2025 12:50 PM EST Office Visit [place] [facility] [address] [place] [address] Lisa Leon, MANAGER PMO [address] [place] [address] 09/30/2025 9:30 AM EDT Appointment P[facility] G Radiology [address] [place] [address] 09/30/2025 10:30 AM EDT Office Visit [facility] Respiratory [address] [facility], 2nd [place] [address] Candido Fitzgerald MD [address] [place] [address] Scheduled Orders Name Type Priority Associated Diagnoses Orde r Schedule CT Chest wo IV Contrast Imaging Routine Lung nodule Expected: 04/03/2025 (Approximate), Expires: 04/04/2026 documented as of this encounter Visit Diagnoses Diagnosis Lung nodule Other diseases of lung, not elsewhere classified documented in this encounter Additional Health Concerns Assessment Noted Time A fall risk assessment has been complete d for the patient 10/01/2024 10:28 AM EDT A Body Mass Index follow-up plan has been documented for the patient 10/05/2024 8:54 AM EDT documented as of this encounter Care Teams Antique Collector Relationship Specialty Start Date End Date Cali Snyder APRN [address] [place] [address] PCP - General 01/09/24 Nico Moncada MD [address] [address] Referring Physician Cardiology 12/21/21 Elba Alves DO [address] [address] Resident 06/13/24 documented as of this encounter
--- NOTE | 2024-10-12 09:15 | XR_ITS ---
FINAL REPORT TECHNIQUE: Bone densitometry calculations of the lumbar spine and left hip were obtained. CLINICAL HISTORY: osteoprosis FINDINGS: Using L1-4, the bone mineral density of the spine is 0.784 g/cm2, corresponding to T-score of -2.4. Using the left hip, the bone mineral density of the femoral neck is 0.657 g/cm2, corresponding to a T-score of -2.3. Using the right hip, the bone mineral density of the femoral neck is 0.574 g/cm2, corresponding to a T-score of -2.5. NOTE: T-score: Standard deviation compared with peak bone mass of young adult mean. *Following the recommendations of the International Society of Bone densitometry, classification of hip BMD is based on the lower of two T-scores; total hip or femoral neck. IMPRESSION: Diminished bone mineral density of the left femur and lumbar spine consistent with osteopenia. Diminished bone mineral density of the right femur consistent with osteoporosis. FRAX was not reported because patient is being treated for osteoporosis. Reviewed, Interpreted and Dictated by Gayle Hawkins MD Transcribed by Lennie Healy Authenticated and . [facility]
--- OUTSIDE RECORDS SUMMARY | 2024-10-12 09:15 | XMS_ITS | Encounter Summary ---
Author Organization Healthcare Address [address] [place] [address] Care Team Providers Care Cd Technician Name Role Phone Nico Moncada MD Unavailable [phone] Cali Snyder APRN Primary Care Provider [phone] Elba Alves DO Unavailable [phone] Encounter Details Date Type Department Care Team (Late st Contact Info) Description 08/17/2024 Refill [place] [facility] [address] [place] [address] Shauna Montemayor, PharmD Seropositive rheumatoid arthritis of multiple sites ([facility]) Social History Tobacco Use Types Packs/Day Years [...] Upcoming Encounters Date Type Department Care Team ([facility] st Contact Info) Description 01/01/2025 9:40 AM EDT Office Visit [facility] Gynecology [address] [place] [address] Mark Zurita MD [address] [place] [address] 01/21/2025 12:50 PM EST Office Visit [place] [facility] [address] [place] [address] Lisa Leon APRN [address] [place] [address] 09/30/2025 9:30 AM EDT Appointment [facility] Radiology [address] [place] [address] 09/30/2025 10:30 AM EDT Office Visit [facility] Head[facility] Neck [facility] Respiratory [address] [place] [address] Candido Fitzgerald MD [address] [place] [address] documented as of this encounter Visit Diagnoses Diagnosis Seropositive rheumatoid arthritis of multiple sites (CMS/HCC) documented in this encounter Additional Health Concerns Assessment Noted Time A fall risk assessment has been complete d for the patient 07/02/2024 11:08 AM EDT A Body Mass Index follow-up plan has been documented for the patient 07/02/2024 11:57 AM EDT documented as of this encounter Care Teams Cd Technician Relationship Specialty Start Date End Date Cali Snyder APRN [address] [place] [address] PCP - General 01/09/24 Nico Moncada MD [facility] [place] [address] Referring Physician Cardiology 12/21/21 Elba Alves DO [facility] [place] [address] Resident 06/13/24 documented as of this encounter
--- OUTSIDE RECORDS SUMMARY | 2024-10-12 09:15 | XMS_ITS | Data Portability ---
Author Organization [facility] Mario Gordillo [facility] Address [address] [facility] [address] [place] [address] Care Team Providers Care Mushroom Packer Name Role Phone MARY NEGRON Primary Care Provider Assessment Encounter Date Assessment Date Assessment LastModified [...] is supposed to follow-up with the oncology trestle mechanic in a couple of weeks. She has [...] also has been using a nasal spray [id number] with minimal relief. She has not had [...] She is going to follow-up with her noodle catalyst maker on Tuesday about her Plaquenil if she [...] and agreeable with this plan of care. [facility] communication sheet printed and provided to patient/family/ca regiver at the end of today's visit. All questions answered. [place] [id number] Not available 09/14/2024 14:39:25 Plan of Treatment Reminders Order Date Submit Date Provider Last Modified By Organization Details Last Modified Time Details Appointments None recorded. Lab None recorded. Referral None recorded. Procedures None recorded. Surgeries None recorded. Imaging None recorded. Medication Orders doxycycline hyclate 100 mg capsule 2024 025 [email or web address] [facility], [address], [address], 12:35:51 Patient TargetsNo targets recorded. Patient InstructionsNo instructions recorded. Reason for Referral None Reported. Problems Name Problem SNOMED Code Status Onset Date Resolution Date Notes Provider Name and Address Organization Details Recorded Time Chronic obstructi ve pulmonary disease 97523874 Active Chronic obstructi ve pulmonary disease, unspecifi ed; Active Date: 5; Recorded Date: Problem Code: J44.9; Problem Code Type: ICD-10; Not Available [facility] 19:19:26 Gastroeso phageal reflux disease without esophagit is 566204718 Active GERD (gastroes ophageal reflux disease); Active Date: Problem Code: K21.9; Problem Code Type: ICD-10; Not Available [facility] 19:19:26 Body mass index less than 20 146484438 Active BMI less than 19,adult; Active Date: Problem Code: Z68.1; Problem Code Type: ICD-10; Not Available [facility] 19:19:26 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 63206034327 9100 Active Rheumatoi d arthritis with rheumatoi d factor of right hand without organ or systems involveme nt; Active Date: 5; Recorded Date: Problem Code: M05.741; Problem Code Type: ICD-10; Not Available [facility] 19:19:27 Atheroscl erosis of coronary artery without angina pectoris 44161937763 4103 Active Coronary artery disease; Active Date: Problem Code: I25.10; Problem Code Type: ICD-10; Not Available [facility] 19:19:27 Breakage of internal fixation device 333521558 Active Fractured sternal wires; Active Date: Problem Code: T84.218A; Problem Code Type: ICD-10; Not Available [facility] 19:19:27 Hyperlipi demia 89584159 Active Hyperlipi demia; Active Date: Problem Code: E78.5; Problem Code Type: ICD-10; Not Available [facility] 19:19:27 Essential hypertens ion 01912825 Active Hypertens ion; Active Date: Problem Code: I10; Problem Code Type: ICD-10; Not Available [facility] 19:19:27 Rheumatoi d arthritis 26659084 Active Rheumatoi d arthritis ; Active Date: Problem Code: M06.9; Problem Code Type: ICD-10; Not Available [facility] 19:19:28 Adult health examinati on Active 2024 Encounter for general adult medical examinati on without abnormal findings; Last Dx's Date: 5; Active Date: 5; Recorded Date: Problem Code: Z00.00; Problem Code Type: ICD-10; Not Available [facility] 5 19:19:26 Problem Notes None recorded. Procedures Surgical History Date Name Laterality Status Provider Name and Address Organization Details Recorded Time ligation of fallopian tube completed Not Available [facility] 09/10/2024 01:56:49 Imaging Results None recorded. Procedure Notes None recorded. Medical Equipment None Reported. Allergies Allergen ID Allergen Name Allergen Category Reaction Reaction Severity Criticality Documentation Date Start Date Code Code System Note Provider Name and Address Organization Details Recorded Time 554207 Product containin g salicylat e (product) medicatio n Not available Not available Not available 09/10/20242019 71556 2004 SNOMED Verif icati on Statu s: confi rmed Not Available [facility] 5 00:16:43 827311 Medicinal product containin g cephalosp kriss and acting as antibacte rial agent (product) medicatio n Not available Not available Not available 09/10/20242021 53209 9009 SNOMED Verif icati on Statu s: confi rmed Not Available [facility] 5 00:16:43 577277 acetamino phen medicatio n Not available Not available Not available 09/10/20242019 161 RxNorm Verif icati on Statu s: confi rmed Not Available [facility] 5 00:16:43 Medications Name Sig Start Date [...] No t Available prednisone 5 mg tablet TAKE 1-3 TABLETS DAILY BY MOUTH NEEDED FOR BREAKTHRO UGH PAIN active Not Available Not Available No t Available doxycycline monohydrate 100 mg tablet TAKE [...] Not Available Not Available No t Available hydroxychlo roquine 200 mg tablet TAKE 1 TABLET BY MOUTH [...] Not Available No t Available amoxicillin 875 mg-caryn davis clavulanate 125 mg tablet TAKE 1 TABLET [...] 5 160.02 cm 97.5 [degF] 20 kg/m2 34972.9 4 g 16 /min 94 /min 95 % 95 % 120/76 mm[Hg] RON Gordillo 5 10:46:05 Social History Question Answer Notes LastModified by Mibio Details LastModified Time What Is Your Code [...] Functional Status Question Answer Note LastModified by Mibio Details LastModified Time Do you use any [...] SNOMED-CT Code Diagnosis ICD10 Code Diagnosis Note [id number] Christin Thapa, ASHLIE [place] [address] [address] [place] [address] 09/14/2024 10:35:34 09/14/2024 17:34:01 Chronic obstructive pulmonary disease 43114422 J44.9 Continue Breo Essential hypertension 49604215 I10 Continue Metoprolol Rheumatoid arthritis 698 49595 M06.9 Continue Xeljanz Acute maxi llary sinusitis 93619246 J01.00 Sensamist for allergies Goals Section Goal [...] Member ID Mar Member ID Guarantor Name 10/11/2024 1 DEO-MORRO: [employer] [place] - [employer] (MEDICARE REPLACEMENT HMO) [id number] Jacque Worley [id number] 57 [id number] Jacque Worley Notes Date Note Type Note [...] OTC meds with minimal relief. Christin Thapa, ASHLIE [address] [facility] [place], [address], [facility] Duy 09/14/2024 17:48:21 OBGyn Episode No OBEpisode recorded.
--- OUTSIDE RECORDS SUMMARY | 2024-10-12 09:15 | XMS_ITS | Clinical Summary ---
Author Organization Healthcare Address [address] [place] [address] Care Team Providers Care Horser Up Name Role Phone Nico Moncada MD Unavailable [phone] Cali Snyder APRN Primary Care Provider [phone] Elba Alves DO Unavailable [phone] Allergies Active Allergy Reactions Criticality Noted [...] 10/17/19 24 Active neomycin-poly myxin-dexamet hasone (Maxitrol) 3.5-34669-0.1 ophthalmic suspension 09/05/19 24 Active oxybutynin XL [...] DAILY NEEDED FOR RASH Active nystatin (Mycostatin) 395585 UNIT/ML suspension 09/14/19 25 Active hydroxychloro quine [...] tablet by mouth daily. 30 tablet 08/18/19 25 025 Discontinued(R eorder) Active Problems Problem Noted [...] Encounters Date Type Department Care Team Description 10/04/2024 Telephone [place] [facility] [address] [place] [address] Gloria Beavers RN 10/01/2024 10:15 AM EDT Office Visit [facility] [address] 2[address] [place] [address] Candido Fitzgerald MD Lung nodule 10/01/2024 9:20 AM EDT - 10/01/2024 11:59 PM EDT Hospital Encounter [facility] [address] [place] [address] Lung nodule Discharge Disposition: Home or Self Care 10/01/2024 Travel 09/19/2024 Results Follow-Up [facility] [address] [place] [phone] Lisa Leon APRN 09/17/2024 3:51 PM EDT - 09/17/2024 11:59 PM EDT Hospital Encounter [facility] [address], 1st [place] [phone] Seropositive rheumatoid arthritis of multiple sites ([facility]); High risk medication use; Long-term use of immunosuppressant medication Discharge Disposition: Home or Self Care 09/17/2024 3:20 PM EDT Office Visit [facility] [address], [address] [place] [phone] Lisa Leon, JUANJOSE Seropositive rheumatoid arthritis of multiple sites ([facility]) (Primary Dx); High risk medication use; Long-term use of immunosuppressant medication 09/17/2024 Telephone [facility] [address], [address] [place] [address] Lori Garcia 09/17/2024 Refill [facility] [address], [address] [place] [phone] Shauna Montemayor, PharmD Seropositive rheumatoid arthritis of multiple sites ([facility]) 09/17/2024 Travel 08/29/2024 11:00 AM EDT Office Visit [facility] Gynecology [address] [place] [phone] Venancio Duran MD Severe vulvar dysplasia, histologically confirmed (Primary Dx) 08/29/2024 Travel 08/17/2024 Results Follow-Up [facility] Gynecology [address] [place] [address] Venancio Duran MD 08/17/2024 Refill [facility] [address], [address] [place] [address] Shauna Montemayor, PharmD Seropositive rheumatoid arthritis of multiple sites (CMS/HCC) 08/09/2024 3:11 PM EDT Anesthesia Event [facility] O[facility]ATING RO[facility] [address] [place] [address] Gely Major CRNA, Kortney Weldon MD 08/09/2024 2:45 PM EDT - 08/09/2024 4:45 PM EDT Surgery [facility] [address] [place] [phone] Venancio Duran MD SPV [89580 (CPT )] 08/09/2024 1:19 PM EDT - 08/09/2024 6:00 PM EDT Hospital Encounter [facility] [address] [place] [phone] Venancio Duran MD Severe vulvar dysplasia, histologically confirmed Discharge Disposition: Home or Self Care 08/09/2024 Travel 08/02/2024 3:30 PM EDT Pre-Admission Testing [place] [facility] Pre-op Clinic [address] [place] [address] 08/02/2024 Travel 07/31/2024 11:50 AM EDT Clinical Support [facility] Gynecology [address] [address] [address] [place] [phone] Carcinoma in situ of vulva 07/31/2024 10:30 AM EDT Office Visit [facility] Gynecology [address] [facility] [address] [place] [address] Mark Zurita MD Severe vulvar dysplasia, histologically confirmed (Primary Dx); Carcinoma in situ of vulva 07/31/2024 Travel from Last 3 Months Immunizations Immunization [...] 8.6 oz) 10/01/2024 10:26 AM EDT Height 160 cm (5' 3 ) 09/17/2024 3:12 PM EDT Body Mass Index 20.11 09/17/2024 3:12 PM EDT Plan of Treatment Upcoming Encounters Date Type Department Care Team (Late st Contact Info) Description 01/01/2025 9:40 AM EDT Office Visit [facility] [address] [place] [phone] Mark Zurita MD [address] [facility] [address] [place] [phone] 01/21/2025 12:50 PM EST Office Visit [place] [facility] [address] [place] [address] Lisa Leon, ENGINEERING PROJECT DESIGNER [address] [place] [address] 09/30/2025 9:30 AM EDT Appointment [facility] [address] [place] [phone] 09/30/2025 10:30 AM EDT Office Visit [facility] Res[facility] [address] [place] [phone] Candido Fitzgerald MD [address] [place] [address] Health Maintenance Due Date Last Done Comments [facility]-Bone Density Scan 1950 [facility]-Medicare Annual Wellness (AWV) 1950 [facility]-/Child/Adol SDOH Screenings 1950 [facility]- SDOH Screenings 1970 [facility]-Adult SDOH Screenings 1970 [facility]-DTaP,Tdap,and Td Vaccines (1 - Tdap) 09/05/1971 [facility]-Zoster Vaccines (1 of 2) 09/05/1971 CT Colonography 1997 Colonoscopy 1997 FIT-DNA 1997 FIT 1997 FOBT 1997 Sigmoidoscopy 1997 [facility]-Colorectal Cancer Screening 1997 [facility]-Breast Cancer Screening 2002 [facility]-RSV Vaccine: 60+ Years or (1 - Risk 60-74 years 1-dose series) 2012 [id number] Vaccine (2 - Deb risk series) 06/25/2020 05/28/2020 [facility]-Pneumococcal Vaccine: 50+ Years (3 of 3 - PCV) 03/31/2021 03/31/2020, 01/16/2020 [facility]-Influenza Vaccine [...] Routine 10/01/2024 10:00 AM EDT Lung nodule XR FOOT LEFT 3+ VIEWS Routine 09/17/2024 [...] ANESTHESIA PLACEHOLDER Routine 08/09/2024 3:19 PM EDT ID AN ELECTIVE SUPRAGLOTTIC AIRWAY Routine 08/09/2024 3:19 PM EDT ID PART SIMPLE REMV VULVA 08/09/2024 2:59 PM EDT Severe vulvar dysplasia, histologically confirmed COMPREHENSIVE METABOLIC PANEL, PLASMA Routine 07/31/2024 12:03 PM EDT Carcinoma in situ of vulva CBC WITH AUTO DIFFERENTIAL Routine 07/31/2024 12:03 PM EDT Carcinoma in situ of vulva HEMOGLOBIN A1C Routine 07/31/2024 12:03 PM EDT Carcinoma in situ of vulva HEPATITIS C ANTIBODY W/REFLEX TO HCV QUANT PCR Routine 04/03/2021 4:35 PM EST High risk medication use Need for hepatitis C screening test from Last 3 Months or Most Recently Relevant to Health Maintenance Results * CT Chest wo IV Contrast [...] on 10/01/2024 11:29 AM Candido Fitzgerald MD IMAudelia CT PROCEDURES Final Resu lt * XR Hand and Wrist Bilateral 2 [...] heads with MCP joint space narrowing. Diffuse dkut-fx-eenigusp interphalangeal joint space narrowing. Carpal rows are intact. No soft tissue swelling. Left hand/wrist: No acute fracture. Similar radial subluxation of the thumb MCP joint. Similar erosive changes of the thumb metacarpal head. Diffuse mmsh-ax-milhrwcr interphalangeal joint space narrowing. Carpal rows are [...] metacarpal heads with MCP jointspace narrowing. Diffuse lmmp-qf-bzlwckwg interphalangeal joint spacenarrowing. Carpal rows are intact. No soft tissue swelling. Left hand/wrist: No acute fracture. Similar radial subluxation of thethumb MCP joint. Similar erosive changes of the thumb metacarpal head.Diffuse ncxk-un-ockhtwab interphalangeal joint space narrowing. Carpalrows are intact. [...] MD on 09/17/2024 4:31 PM Lisa Leon APRN IMG XR PROCEDURES Final R esult * [...] heads with MCP joint space narrowing. Diffuse lorb-ss-rtyjoofs interphalangeal joint space narrowing. Carpal rows are intact. No soft tissue swelling. Left hand/wrist: No acute fracture. Similar radial subluxation of the thumb MCP joint. Similar erosive changes of the thumb metacarpal head. Diffuse tqsw-py-myvbkhfe interphalangeal joint space narrowing. Carpal rows are [...] metacarpal heads with MCP jointspace narrowing. Diffuse vujy-rk-jligqvex interphalangeal joint spacenarrowing. Carpal rows are intact. No soft tissue swelling. Left hand/wrist: No acute fracture. Similar radial subluxation of thethumb MCP joint. Similar erosive changes of the thumb metacarpal head.Diffuse dgwt-wn-htoaijch interphalangeal joint space narrowing. Carpalrows are intact. [...] MD on 09/17/2024 4:31 PM Lisa Leon APRN IMG XR PROCEDURES Final R esult * [...] heads with MCP joint space narrowing. Diffuse ivqw-ee-ltwlnsuz interphalangeal joint space narrowing. Carpal rows are intact. No soft tissue swelling. Left hand/wrist: No acute fracture. Similar radial subluxation of the thumb MCP joint. Similar erosive changes of the thumb metacarpal head. Diffuse uxom-fu-vqdjnuxz interphalangeal joint space narrowing. Carpal rows are [...] metacarpal heads with MCP jointspace narrowing. Diffuse qxxv-jt-botlxecu interphalangeal joint spacenarrowing. Carpal rows are intact. No soft tissue swelling. Left hand/wrist: No acute fracture. Similar radial subluxation of thethumb MCP joint. Similar erosive changes of the thumb metacarpal head.Diffuse nugn-os-dksbdwam interphalangeal joint space narrowing. Carpalrows are intact. [...] MD on 09/17/2024 4:31 PM Lisa Leon ENGINEERING PROJECT DESIGNER IMG XR PROCEDURES Final R esult * Surgical Pathology Exam (08/09/2024 3:58 PM EDT) Case Report Surgical Pathology Case: [id number] Authorizing Provider: Venancio Duran MD Collected: 08/09/2024 4092 Ordering Location: [facility] OPERATING ROOM Received: 08/09/2024 1630 Pathologist: Jay Wong MD Specimen: Other (specify site), Perineal Body Lesion 08/15/2024 3:11 PM EDT [facility] Final Diagnosis A. VULVA, PERINEAL BODY LESION, EXCISION: - HIGH-GRADE SQUAMOUS INTRAEPITHELIAL LESION (HSIL, OLIVIA II, MODERATE DYSPLASIA). - THE HIGH-GRADE DYSPLASIA EXTENDS TO THE ANTERIOR AND POSTERIOR TIPS. 08/15/2024 3:11 PM EDT [facility] at 1511 EDT Clinical Information Severe vulvar dysplasia, histologically confirmed [D07.1] 08/15/2024 3:11 PM EDT [facility] Gross Description A. PERINEAL BODY [...] DANIELLE Hassan (ASCP) 08/15/2024 3:11 PM EDT [facility] Note: A resident was involved in the service. I attest I examined the relevant preparations for the specimens and confirmed the diagnosis or interpretation. 08/15/2024 3:11 PM EDT [facility] Tissue Topography unknown / Unknown 08/09/2024 3:58 PM EDT 08/09/2024 4:30 PM EDT Comment:Pre-op diagnosis: Severe vulvar dysplasia, histologically confirmed [D07.1] us Venancio Duran MD LAB PATHOLOGY ORDERABLES F inal Result [facility] [place] [address] * ID AN ELECTIVE SUPRAGLOTTIC AIRWAY, PB ANESTHESIA PLACEHOLDER (08/09/2024 3:19 PM EDT) Narrative Gely Major CRNA, DNP - 08/09/2024 3:19 PM EDT Gely Major CRNA, DNP 08/09/2024 3:32 PM Airway Date/Time: 08/09/2024 3:19 PM Reason: elective Airway not difficult General Information and Staff Patient location during procedure: OR REPOSSESSOR: Gely Major CRNA, DNP Performed: [place] Patient Condition Indications for airway management: anesthesia [...] LAB HEMATOLOGY METHOD 07/31/2024 1:08 PM EDT [facility] RBC Count 4.45 3.90 - 5.20 10*6/uL LAB HEMATOLOGY METHOD 07/31/2024 1:08 PM EDT [facility] HGB 13.0 11.2 - 15.7 g/dL LAB HEMATOLOGY METHOD 07/31/2024 1:08 PM EDT [facility] HCT 38.5 34.0 - 45.0 % LAB HEMATOLOGY METHOD 07/31/2024 1:08 PM EDT [facility] Platelet Count 175 155 - 369 10*3/uL LAB HEMATOLOGY METHOD 07/31/2024 1:08 PM EDT [facility] MCV 87 79 - 98 fL LAB HEMATOLOGY METHOD 07/31/2024 1:08 PM EDT [facility] MCH 29.2 26.0 - 32.0 pg LAB HEMATOLOGY METHOD 07/31/2024 1:08 PM EDT [facility] MCHC 33.8 30.7 - 35.5 g/dL LAB HEMATOLOGY METHOD 07/31/2024 1:08 PM EDT [facility] RDW 14.1 11.5 - 14.5 % LAB HEMATOLOGY METHOD 07/31/2024 1:08 PM EDT [facility] MPV 11.1 8.8 - 12.5 fL LAB HEMATOLOGY METHOD 07/31/2024 1:08 PM EDT [facility] nRBC 0.0 <=0.0 per 100 WBCs LAB HEMATOLOGY METHOD 07/31/2024 1:08 PM EDT [facility] Differential Type Automated LAB HEMATOLOGY METHOD 07/31/2024 1:08 PM EDT [facility] Neutrophils % 66 % LAB HEMATOLOGY METHOD 07/31/2024 1:08 PM EDT [facility] Lymphocytes % 23 % LAB HEMATOLOGY METHOD 07/31/2024 1:08 PM EDT [facility] Monocytes % 9 % LAB HEMATOLOGY METHOD 07/31/2024 1:08 PM EDT [facility] Eosinophils % 1 % LAB HEMATOLOGY METHOD 07/31/2024 1:08 PM EDT [facility] Basophils % 1 % LAB HEMATOLOGY METHOD 07/31/2024 1:08 PM EDT [facility] Immature Granulocytes % 0 % LAB HEMATOLOGY METHOD 07/31/2024 1:08 PM EDT [facility] Neutrophils Absolute 3.84 1.60 - 6.10 10*3/uL LAB HEMATOLOGY METHOD 07/31/2024 1:08 PM EDT [facility] Lymphocytes Absolute 1.37 1.20 - 3.90 10*3/uL LAB HEMATOLOGY METHOD 07/31/2024 1:08 PM EDT [facility] Monocytes Absolute 0.51 0.30 - 0.90 10*3/uL LAB HEMATOLOGY METHOD 07/31/2024 1:08 PM EDT [facility] Eosinophils Absolute 0.07 0.00 - 0.50 10*3/uL LAB HEMATOLOGY METHOD 07/31/2024 1:08 PM EDT [facility] Basophils Absolute 0.04 0.00 - 0.10 10*3/uL LAB HEMATOLOGY METHOD 07/31/2024 1:08 PM EDT [facility] Immature Granulocytes Absolute 0.02 0.00 - 0.06 10*3/uL LAB HEMATOLOGY METHOD 07/31/2024 1:08 PM EDT [facility] Blood Venous blood specimen / Unknown Venipuncture / Unknown 07/31/2024 12:03 PM EDT 07/31/2024 12:52 PM EDT Narrative [facility] - 07/31/2024 1:08 PM EDT Therapeutic decision making should be based on absolute values, rather than percentages. Mark Zurita MD LAB BLOOD ORDERABLES Final Res ult Performing Organization Address [facility] Co de Phone Number [facility] [address] [place] [address] * Hemoglobin A1c (07/31/2024 12:03 PM EDT) Hemoglobin A1c 5.3 <5.7 % 07/31/2024 2:16 PM EDT [facility] Blood Venous blood specimen / Unknown Venipuncture / Unknown 07/31/2024 12:03 PM EDT 07/31/2024 12:52 PM EDT Narrative [facility] - 07/31/2024 2:16 PM EDT HA1C Interpretive Data: Diagnosis of Diabetes: Diabetic > or = 6.5% Pre-diabetic 5.7 to 6.4% Non-diabetic < or = 5.6% Glycemic Targets for Type I and Type II Diabetics: Non- Adults <7.0% Adults <6.0% Children and Adolescents <7.5% Source: [place] [employer]. Standards of medical care in diabetes,2017. Diabetes Care.2017:40 (suppl 1):S1-S135. us Mark Zurita MD LAB BLOOD ORDERABLES Final Res ult Performing Organization Address [facility] [place] [address] * Comprehensive Metabolic Panel, Plasma (07/31/2024 12:03 PM EDT) Glucose, Plasma 90 74 - 99 mg/dL 07/31/2024 1:09 PM EDT [facility] BUN, Plasma 12 8 - 23 mg/dL 07/31/2024 1:09 PM EDT [facility] Creatinine, Plasma 0.86 0.60 - 1.10 mg/dL 07/31/2024 1:09 PM EDT [facility] BUN/Creatinine Ratio 14 07/31/2024 1:09 PM EDT [facility] Sodium, Plasma 138 136 - 145 mmol/L 07/31/2024 1:09 PM EDT [facility] Potassium, Plasma 4.1 3.6 - 4.9 mmol/L 07/31/2024 1:09 PM EDT [facility] Chloride, Plasma 104 97 - 107 mmol/L 07/31/2024 1:09 PM EDT [facility] CO2, Plasma 26 22 - 29 mmol/L 07/31/2024 1:09 PM EDT [facility] Anion Gap 8 6 - 16 mmol/L 07/31/2024 1:09 PM EDT [facility] Total Calcium, Plasma 9.5 8.9 - 10.2 mg/dL 07/31/2024 1:09 PM EDT [facility] Total Protein 6.7 6.3 - 7.9 g/dL 07/31/2024 1:09 PM EDT [facility] Albumin, Plasma 4.2 3.5 - 5.2 g/dL 07/31/2024 1:09 PM EDT [facility] AST, Plasma 23 10 - 35 U/L 07/31/2024 1:09 PM EDT [facility] ALT, Plasma 16 10 - 35 U/L 07/31/2024 1:09 PM EDT [facility] Alkaline Phosphatase, Plasma 63 46 - 142 U/L 07/31/2024 1:09 PM EDT [facility] Total Bilirubin, Plasma 0.3 0.2 - 1.1 mg/dL 07/31/2024 1:09 PM EDT [facility] eGFRcr 72.3 mL/min/1.7 3m*2 07/31/2024 1:09 PM EDT [facility] Comment:Reported eGFRcr in m L/min/1.73m2 is based the CKD-EPI 2020 equation that does not use a race coefficient. Blood Venous blood specimen / Unknown Venipuncture / Unknown 07/31/2024 12:03 PM EDT 07/31/2024 12:39 PM EDT us Mark Zurita MD LAB BLOOD ORDERABLES Final Res ult Performing Organization Address City/[facility]/ZIP Co de Phone Number [facility] [address] [place] [address] * (ABNORMAL) Hepatitis C Antibody (04/03/2021 4:35 PM EST) Hepatitis C Antibody Positive( A) Negative 04/03/2021 8:34 PM EST [facility] Comment:This specimen is gee ng sent for confirmation by RT-PCR. Blood Venous blood specimen / Unknown Venipuncture / Unknown 04/03/2021 4:35 PM EST 04/03/2021 4:35 PM EST us H T Dylan LAB BLOOD ORDERABLES Final Resul t Performing Organization Address City/[facility] de Phone Number [facility] [address] [place] [address] from Last 3 Months or Most Recently Relevant to Health Maintenance Insurance [facility] MEDICARE Care Teams Horser Up Relationship Specialty Start Date End Date Cali Snyder APRN [address] [place], [place] [id number] PCP - General 01/09/24 Nico Moncada MD [address] [address] Referring Physician Cardiology 12/21/21 Elba Alves DO [address] [address] Resident 06/13/24
--- OUTSIDE RECORDS SUMMARY | 2024-10-12 09:15 | XMS_ITS | Encounter Summary ---
Author Organization Healthcare Address [address] [place] [address] Care Team Providers Care Tram Driver Name Role Phone Nico Moncada MD Unavailable [phone] Cali Snyder APRN Primary Care Provider [phone] Elba Alves DO Unavailable [phone] Encounter Details Date Type Department Care [...] -2 Score 0 08/29/2024 11:26 AM EDT Tsingine, Diandr a documented as of this encounter Plan of Treatment Upcoming Encounters Date Type Department Care Team (Late st Contact Info) Description 01/01/2025 9:40 AM EDT Office Visit [facility]ne[facility] [address] [place] [address] Mark Zurita MD [address] [place] [phone] 01/21/2025 12:50 PM EST Office Visit [place] [facility] [address] [place] [address] Lisa Leon APRN [address] [place] [phone] 09/30/2025 9:30 AM EDT Appointment [facility] [address] [place] [phone] 09/30/2025 10:30 AM EDT Office Visit [facility] Res[facility] [address] [place] [phone] Candido Fitzgerald MD [address] [place] [address] documented as of this encounter Visit Diagnoses Not on filedocumented in this encounter Additional Health Concerns Assessment Noted Time A fall risk assessment has been complete d for the patient 08/29/2024 11:26 AM EDT A Body Mass Index follow-up plan has been documented for the patient 07/02/2024 11:57 AM EDT documented as of this encounter Care Teams Tram Driver Relationship Specialty Start Date End Date Cali Snyder APRN [address] [place] [address] PCP - General 01/09/24 Nico Moncada MD [address] [address] Referring Physician Cardiology 12/21/21 Elba Alves DO 1210 [facility] [address] [place] [address] Resident 06/13/24 documented as of this encounter
--- OUTSIDE RECORDS SUMMARY | 2024-10-12 09:15 | XMS_ITS | Encounter Summary ---
Author Organization Healthcare Address [address] [place] [address] Care Team Providers Care Gauge Maker Name Role Phone Nico Moncada MD Unavailable [phone] Cali Snyder APRN Primary Care Provider [phone] Elba Alves DO Unavailable [phone] Encounter Details Date Type Department Care Team (Late st Contact Info) Description 08/17/2024 Results Follow-Up [facility] Gynecology [address] [facility] [address] [place] [phone] Venancio Duran MD 800 [facility] [address] [place] [address] Social History Tobacco Use Types Packs/Day Years [...] EDT Office Visit [facility] [address] [facility] [address] [place] [phone] Mark Zurita MD [address] [facility] [address] [place] [address] 01/21/2025 12:50 PM EST Office Visit [place] [facility] [address] [place] [address] Lisa Leon, ICE CREAM SCOOPER [address] [place] [address] 09/30/2025 9:30 AM EDT Appointment [facility] [address] [place] [address] 09/30/2025 10:30 AM EDT Office Visit [facility] [address] [place] [phone] Candido Fitzgerald MD [address] [place] [address] documented as of this encounter Visit Diagnoses Not on filedocumented in this encounter Additional Health Concerns Assessment Noted Time A fall risk assessment has been complete d for the patient 07/02/2024 11:08 AM EDT A Body Mass Index follow-up plan has been documented for the patient 07/02/2024 11:57 AM EDT documented as of this encounter Care Teams Gauge Maker Relationship Specialty Start Date End Date Cali Snyder APRN [address] [place] [address] PCP - General 01/09/24 Nico Moncada MD [address] [address] Referring Physician Cardiology 12/21/21 Elba Alves DO [facility] [address] Resident 06/13/24 documented as of this encounter
--- OUTSIDE RECORDS SUMMARY | 2024-10-12 09:15 | XMS_ITS | Data Portability ---
Author Organization [facility] LAWANDA Menchaca AMORITA CLOSED Address [address] [place] [address] Assessment No assessment recorded. Plan of Treatment Reminders Order Date Submit Date Provider Last Modified By Organization Details Last Modified Time Details Appointments None recorded. Lab ESR (erythrocy te sedimentat ion rate), blood 2016 017 [email or web address] 8 [facility], [address] [place] [address], [id number], 7 08:01:51 CBC w/ auto diff 2016 017 [email or web address] 8 [facility], [address] [place] [address], [id number], 7 08:01:51 C reactive protein, QN, serum or plasma 2016 017 [email or web address] 8 [facility], [address] [place] [address], [id number], 7 08:01:51 ccp (cyclic citrullina demetris peptide) iga+igg, serum 2016 017 [email or web address] 8 [facility], [address] [place] [address], [id number], 7 08:01:51 rf (rheumatoi d factor), serum 2016 017 [email or web address] 8 [facility], [address] [place] [address], [address], 7 08:01:52 C reactive protein, QN, serum or plasma 2016 017 [facility], [address] [place] [address], [address], 7 15:26:52 ESR (erythrocy te sedimentat ion rate), blood 2016 017 [facility], [address] [place] [address], [address], 7 16:12:40 rf (rheumatoi d factor), serum 2016 017 [facility], [address] [place] [address], [address], 7 15:26:53 Referral None recorded. Procedures None recorded. Surgeries None recorded. Imaging XR, chest, 2 view [email or web address] [facility], [address] [place] [address], [address], 7 08:19:04 XR, hand, 2 view [email or web address] [facility], [address] [place] [address], [address], 7 08:19:04 Medication Orders Plaquenil 200 mg tablet 2017 018 [facility] #08500, [address], [id number], 8 14:09:30 prednisone 5 mg tablet 2017 018 [facility], [address], [id number], 8 14:09:27 Plaquenil 200 mg tablet 2016 017 [facility], [address] [facility] [address], [place], [id number], 7 14:07:22 prednisone 5 mg tablet 2016 017 [facility] #03386, [address] [facility] [address], [place], [id number], 7 14:07:24 Plaquenil 200 mg tablet 2016 017 INTERFACE [employer] [facility] #46314, [address] [facility] [address], [place], [id number], 7 16:07:36 prednisone 5 mg tablet 2016 017 [facility] #70281, [address] [facility] [address], [place], [id number], 7 16:07:39 hydroxychl oroquine 200 mg tablet 2016 017 [facility]FACE [facility] #95316, [address] [facility] [address], [place], [id number], 7 14:10:52 prednisone 5 mg tablet 2016 017 [facility]FACE [employer] #98030, [address] [facility] [address], [place], [id number], 7 14:10:55 Patient TargetsNo targets recorded. Patient Instructions Encounter Date Encounter Id Patient Instructions Last Modified By Organization Details Last Modified Time 06/17/2016 [id number] rheumatoid arthritis diet: care instructions Not available 06/21/2016 09:00:01 Rheumatoid Arthritis (RA): Care Instructions Not available 06/21/2016 09:00:01 01/28/2017 [id number] eye exam* - plaquenil eye exam [email or web address] Not available 03/25/2017 09:51:20 Reason for Referral None Reported. Results Created Date Observation Date Name Description Value Unit Range Abnormal Flag Note LastModifiedBy Organization Detail LastModifiedTime 06/18/19 17 06/17/2016 C react samantha prote in, QN, serum or plasm a C reactive protein 0.04 mg/dL 0.00-0 .50 normal RAY NTRAT IONS OF < 1 MG/DL EXCLU DE MANY ACUTE INFLA MMATO RY DISEA SES, BUT DO NOT SPECI FICAL LY EXCLU DE INFLA MMATO RY PROCE SSES. ELEVA DEMETRIS RAY NTRAT IONS OF < 5 MG/DL IN ACUTE DISEA SE OCCUR IN THE PRESE NCE OF SLIGH T TO MODER ATE INFLA MMATO RY PROCE SSES. VALUE S > 5 MG/DL INDIC ATE HIGH AND EXTEN SIVE INFLA MMATO RY ACTIV ITY. Not Available [facility] [address] [place], [address], 06/17/2016 15:26:52 06/18/19 17 06/17/2016 rf (rheu matoi d facto r), serum rf screen, quant. 364.8 IU/mL 0.0-13 .9 high Test excee ds linea rity. Resul t based on speci men dilut ion. Not Available [facility] [address] [place], [address], 06/17/2016 15:26:53 06/18/19 17 06/17/2016 ESR (eryt hrocy te sedim entat ion rate) , blood ESR, automated 11 mm/HR 0-29 normal Not Available [facility] [address] [place], [address], 06/17/2016 16:12:40 Result Notes None recorded. 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 Medical Equipment None Reported. Allergies No known drug allergies Medications Name Sig Start Date Stop Date Status Note LastModified by Organization Details LastModified Time cyclobenz aprine 10 mg tablet Bedtime 11/30 completed Duration : 30 days;Ins truction s: take 1/2 to 1 tab 1-2 hrs before bedtime; Frequenc y: hs;Alt Frequenc y: prn;Medi cation Descript ion: cycloben zaprine; Dosage:1 ; Route:or al; refills: 6; Quantity :30 tablet Not Available Not Available Not Available Plaquenil 200 mg tablet Take 1 tablet every day by oral route for 90 days. 2017 active Not Available Not Available Not Avai lable prednison e 5 mg tablet PT NEEDS APPT active Not Available Not Available No t Available Aleve 220 mg tablet Every eight hours 08/12 completed Duration : 1 day;Freq uency: q8h;Medi cation Descript ion: naproxen ; Route:or al; refills: 0; Quantity :3 tablet Not Available Not Available Not Available Celebrex 200 mg capsule Daily 11/30 completed Duration : 30 days;Jae quency: daily;Me dication Descript ion: celecoxi b; Dosage:1 ; Route:or al; refills: 6; Quantity :30 capsule Not Available Not Available Not Available baclofen 10 mg tablet Daily 2014 active Duration : 30 days;Ins truction s: Take 1/2-1 tablet at 8am & 3pm;Freq uency: daily;Al t Frequenc y: as direct.; Medicati on Descript ion: baclofen ; Dosage:1 /2-1; Route:or al; refills: 3; Quantity :60 tablet Not Available Not Available Not Available Mirapex 1 mg tablet active Duration : 10 days;Med ication Descript ion: pramipex ole; Route:or al; refills: 0; Quantity :21 tablet Not Available Not Available Not Available Protonix Daily 11/30 completed Duration : 30 days;Jae quency: daily;Me dication Descript ion: pantopra zole; Dosage:1 ; Route:or al; refills: 0; Quantity :30 Not Available Not Available Not Available Vitals Date Recorded Body height Body weight Body mass index (BMI) Respiratory rate Heart rate Systolic And Diastolic Provider Name and Address Organization Details Last Updated DateTime 7 165.1 cm 34305.7 5 g 18.5 kg/m2 18 /min 69 /min 122/69 mm[Hg] Tahmina Flores [facility] 7 13:17:11 Date Recorded Body height Body weight Body mass index (BMI) Heart rate Systolic And Diastolic Provider Name and Address Organization Details Last Updated DateTime 08/12/2016 165.1 cm 79499.15 g 19.4 kg/m2 77 /min 112/59 mm[Hg] Carly Jean [facility] 7 15:28:21 Date Recorded Body height Body mass index (BMI) Body weight Respiratory rate Heart rate Systolic And Diastolic Provider Name and Address Organization Details Last Updated DateTime 8 165.1 cm 20.1 kg/m2 91884.6 8 g 20 /min 74 /min 117/65 mm[Hg] Sara Valdes [facility] 8 13:52:39 Date Recorded Body height Body mass index (BMI) Body weight Respiratory rate Heart rate Systolic And Diastolic Provider Name and Address Organization Details Last Updated DateTime 7 165.1 cm 20 kg/m2 01297.0 8 g 18 /min 70 /min 115/64 mm[Hg] Tahmina Flores [facility] 7 13:52:46 Social History Question Answer Notes LastModified by Organizat ion Details LastModified Time Tobacco Smoking Status Current Every Day Smoker Tahmina Floers [facility] 06/17/2016 13:15:33 What Was The Date Of Your Most Recent Tobacco Screening? 11/30/2017 Information not available 05/08/2019 Has Tobacco Cessation Counseling Been Provided? Yes [email or web address] Information not available 01/28/2017 On What Date Was Tobacco Cessation Counseling Provided? 11/30/2017 Information not available 11/30/2017 Sex: Unknown Functional Status Question Answer Note LastModified by Organization D etails LastModified Time What is your level of alcohol consumption? None Information not available 08/12/2016 Mental Status None recorded. Family History Relationship Description Onset Age of this Age Resolved Age Notes LastModified by Organization Details LastModified Time Father No current problems or disability [email or web address] Not available 06/17 13:15:24 Mother No current problems or disability Not available 06/17 13:15:24 Medical History Condition Response Diabetes N Bleeding Disorder N Arthritis Y Emphysema Y Acid Reflux (GERD) Y Heart Disease N Rheumatoid Arthritis N Hypertension N COPD N Asthma N Gynecological HistoryNo gynecological history recorded. Obstetrics History GPAL:G 0 P 0 0 0 0 Past Encounters Encounter ID Performer Location Encounter Start Date Encounter Closed Date Diagnosis/Indication Diagnosis SNOMED-CT Code Diagnosis ICD10 Code Diagnosis Note [id number] LINDA SHELTON MD [facility] [address] [place] [address] 06/17/2016 13:00:30 06/17/2016 14:15:51 Rheumatoid arthritis 31849674 M06.9 chronic .Nodular with chronic synovitis at the Ist MP and MCP joints, synovitis at elbows and nodules in Feet.All support the diagnosis of rheumatoid with chronic deformitie s.she is on HCQ at 200 mg po qd.H/O Hep-C though cured with Viral load is now Zero!At this time, I would suggest her to up the dose of Plaquenil 200 mg bid and Prednisone at 5 mg po qd.I plan to reassess her in 2 months, if still symptomati c , we can consider low dose Methotrexa te with close watch on her liver functions. [id number] LINDA SHELTON MD [facility] [address] [place] [address] 08/12/2016 15:00:03 08/12/2016 16:17:24 Inflammatory polyarthropathy 486409725 M06.4 Rheumatoid , chronic and is on HCQ bid and low dose Prednisone 5 mg po qd.she has chronic fixed deformitie s.moving well.joint s are holding on .lungs are clear .in terms of chronic off and on chocking , she needs to be careful and take time to eat or drink,She has done very well with plaquenil, and I would suggest to crush it and mix with apple sauce twice daily.keep prednisone 5 mg po qd. other issues:H/O Hep-C though cured with Viral load is now Zero! [id number] LINDA SHELTON MD [facility] [address] [place] [address] 01/28/2017 13:27:25 01/28/2017 14:09:39 Seropositive rheumatoid arthritis 134333489 M05.9 Rheumatoid , sero positive. seems ot be fair. chronic and is on HCQ bid and low dose Prednisone 5 mg po qd. MSK stable , w/o active process.St able strength and sole blacker. I want to keep the Plaquenil, 200 mg bid and Prednisone 5 mg po qd. other issues:H/O Hep-C though cured with Viral load is now Zero! eye exam once yearly. [id number] LINDA SHELTON MD [facility] [address] [place] [address] 11/30/2017 13:34:39 11/30/2017 14:16:23 Seropositive rheumatoid arthritis 773172005 M05.9 Rheumatoid , sero positive. currently is doing better. Though recent flares, ankes, and knees. had to go on steroids. she is [id number] mg po qd, and low dose Prednisone 5 mg po qd. she has gained some weight for which I am pleased. I want to keep the Plaquenil, 200 mg bid and Prednisone 5 mg po qd. she has chronic lung disease, COPD.cutti ng back on smoking. other issues:H/O Hep-C though cured with Viral load is now Zero! eye exam once yearly. Health Concerns Section Related Observation LastModified by Organization Detai ls LastModified Time None Recorded Concern Status LastModified by Organization Details LastModified Time None Recorded Advance Directives Directive None Recorded Payers Insurance Date Sequence Insurance Name Policy Number Policy Mar Covered Member ID Mar Member ID Guarantor Name 02/13/2020 1 [place] Jacque Worley [id number] Jacque Worley 02/13/2020 1 [place] [id number] Jeffry Worley [id number] Jacque Worley Notes Date Note Type Note Provider Name and Address Organization Details Recorded Time 06/17/2016 text/html ROS as noted in the HPI she has chronic pains for the past 10 years.she was followed by Dr Lopez in the past and was initiated on Plaquenil 1 po qd, not sure why?Though there were concerns about rheumatoid .she also takes Tramadol for the pains, though the Tylenol helps her better than the Tramadol. she is on celebrex 1 poqd . H/O Osteoporosis and has used Evista. H/O Hep C , treated with Sovaldi and ledipasvir and is now cured. no chest pains , stable breathing .possible gall stones.she is a chronic smoker. LINDA SHELTON MD [facility] [place], [address], [facility] 06/17/2016 14:12:35 08/12/2016 text/html ROS as noted in the HPI seen as a follow up .she chocked on her Plaquenil and had to get hamllick manoeuver through her .she has had chocking with the peanut butter in the past.now doing well , but wants to know what she can take to avoid the chocking off and on . LINDA SHELTON MD [facility] [place], [address], [facility] 08/12/2016 16:08:04 01/28/2017 text/html ROS as noted in the HPI seen as a follow up.she is coming along well.cold weather hurts more. LINDA SHELTON MD [facility] [place], [address], [facility] 01/28/2017 14:08:01 11/30/2017 text/html ROS as noted in the HPI seen as a follow up on RA. she is on plaquenil and low dose prednisone. she does report h/o diarrhea after she used ABX for the URI. LINDA SHELTON MD [facility] [place], [address], [facility] 11/30/2017 14:09:44 OBGyn Episode No OBEpisode recorded.
--- OUTSIDE RECORDS SUMMARY | 2024-10-12 09:16 | XMS_ITS | Encounter Summary ---
Author Organization [facility] Address [address] [place] [address] Care Team Providers Care Sales Consultant Name Role Phone Nico Moncada MD Unavailable [phone] Cali Snyder APRN Primary Care Provider [phone] Elba Alves DO Unavailable [phone] Encounter Details Date Type Department Care Team (Late st Contact Info) Description 09/17/2024 Telephone [facility] [address] [place] [address] [place] [address] Social History Tobacco Use Types Packs/Day Years [...] encounter Miscellaneous Notes * Telephone Encounter - Gregory Bourgeois RN - 09/20/2024 2:33 PM EDT Called pharmacy to relay provider's message. They will update the script. They had no further questions/concerns at this time. * Telephone Encounter - Lori Garcia - 09/17/2024 4:14 PM EDT Pharmacy called They were wondering about getting a frequency added on for the prednisone prescription documented in this encounter Plan of Treatment Upcoming Encounters Date Type Department Care Team (Late st Contact Info) Description 01/01/2025 9:40 AM EDT Office Visit [facility] Gynecology [address] [facility] [address] [place] [address] Mark Zurita MD [address] [facility] [address] [place] [address] 01/21/2025 12:50 PM EST [facility] [address] [place] [address] Lisa Leon, JOB SPECIFICATION WRITER [address] [place] [address] 09/30/2025 9:30 AM EDT Appointment [facility] Radiology [address] [place] [address] 09/30/2025 10:30 AM EDT Office Visit [facility] [address] [facility] [place] [address] Candido Fitzgerald MD [address] [place] [address] documented as of this encounter Visit Diagnoses Not on filedocumented in this encounter Additional Health Concerns Assessment Noted Time A fall risk assessment has been complete d for the patient 09/17/2024 3:19 PM EDT A Body Mass Index follow-up plan has been documented for the patient 09/17/2024 3:40 PM EDT documented as of this encounter Care Teams Sales Consultant Relationship Specialty Start Date End Date Cali Snyder APRN [address] [place] [address] PCP - General 01/09/24 Nico Moncada MD [address] [place] [address] Referring Physician Cardiology 12/21/21 Elba Alves DO [address] [place] [address] Resident 06/13/24 documented as of this encounter
--- OUTSIDE RECORDS SUMMARY | 2024-10-12 09:16 | XMS_ITS | Continuity of Care Document ---
Author Organization Gregorio Rios [facility] Address [address] [facility] [address] [place] [address] Care Team Providers Care Key Ringer Name Role Phone MARY NEGRON Primary Care [...] is supposed to follow-up with the oncology inspector filters in a couple of weeks. She has [...] also has been using a nasal spray [id number] with minimal relief. She has not had [...] She is going to follow-up with her respiratory care faculty on Tuesday about her Plaquenil if she [...] and agreeable with this plan of care. [facility] communication sheet printed and provided to patient/family/ca regiver at the end of today's visit. All questions answered. [facility] Not available 09/14/2024 14:39:25 Plan of Treatment Reminders Order Date Submit Date Provider Last Modified By Organization Details Last Modified Time Details Appointments None recorded. Lab None recorded. Referral None recorded. Procedures None recorded. Surgeries None recorded. Imaging None recorded. Medication Orders doxycycline hyclate 100 mg capsule 2024 025 [email or web address] [facility], [address], [address], 12:35:51 Patient TargetsNo targets recorded. Patient InstructionsNo instructions recorded. Reason for Referral None Reported. Problems Name Problem SNOMED Code Status Onset Date Resolution Date Notes Provider Name and Address Organization Details Recorded Time Chronic obstructi ve pulmonary disease 57103410 Active Chronic obstructi ve pulmonary disease, unspecifi ed; Active Date: 5; Recorded Date: Problem Code: J44.9; Problem Code Type: ICD-10; Not Available [facility] 19:19:26 Gastroeso phageal reflux disease without esophagit is 725383312 Active GERD (gastroes ophageal reflux disease); Active Date: Problem Code: K21.9; Problem Code Type: ICD-10; Not Available [facility] 19:19:26 Body mass index less than 20 215512230 Active BMI less than 19,adult; Active Date: Problem Code: Z68.1; Problem Code Type: ICD-10; Not Available [facility] 19:19:26 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 11125873715 9100 Active Rheumatoi d arthritis with rheumatoi d factor of right hand without organ or systems involveme nt; Active Date: 5; Recorded Date: Problem Code: M05.741; Problem Code Type: ICD-10; Not Available [facility] 19:19:27 Atheroscl erosis of coronary artery without angina pectoris 83026276900 4103 Active Coronary artery disease; Active Date: Problem Code: I25.10; Problem Code Type: ICD-10; Not Available [facility] 19:19:27 Breakage of internal fixation device 923397489 Active Fractured sternal wires; Active Date: Problem Code: T84.218A; Problem Code Type: ICD-10; Not Available [facility] 19:19:27 Hyperlipi demia 82055953 Active Hyperlipi demia; Active Date: Problem Code: E78.5; Problem Code Type: ICD-10; Not Available [facility] 19:19:27 Essential hypertens ion 13561239 Active Hypertens ion; Active Date: Problem Code: I10; Problem Code Type: ICD-10; Not Available [facility] 19:19:27 Rheumatoi d arthritis 94549564 Active Rheumatoi d arthritis ; Active Date: Problem Code: M06.9; Problem Code Type: ICD-10; Not Available [facility] 19:19:28 Adult health examinati on Active 2024 Encounter for general adult medical examinati on without abnormal findings; Last Dx's Date: 5; Active Date: 5; Recorded Date: 5 Problem Code: Z00.00; Problem Code Type: ICD-10; Not Available [facility] 19:19:26 Problem Notes None recorded. Procedures Surgical History Date Name Laterality Status Provider Name and Address Organization Details Recorded Time ligation of fallopian tube completed Not Available [facility] 09/10/2024 01:56:49 Imaging Results None recorded. Procedure Notes None recorded. Medical Equipment None Reported. Allergies Allergen ID Allergen Name Allergen Category Reaction Reaction Severity Criticality Documentation Date Start Date Code Code System Note Provider Name and Address Organization Details Recorded Time 867656 Product containin g salicylat e (product) medicatio n Not available Not available Not available 09/10/20242019 12295 2004 SNOMED Verif icati on Statu s: confi rmed Not Available [facility] 00:16:43 321687 Medicinal product containin g cephalosp kriss and acting as antibacte rial agent (product) medicatio n Not available Not available Not available 09/10/20242021 23578 9009 SNOMED Verif icati on Statu s: confi rmed Not Available [facility] 00:16:43 541931 acetamino phen medicatio n Not available Not available Not available 09/10/20242019 161 RxNorm Verif icati on Statu s: confi rmed Not Available [facility] 00:16:43 Medications Name Sig Start Date Stop [...] 5 160.02 cm 97.5 [degF] 20 kg/m2 94730.9 4 g 16 /min 94 /min 95 % 95 % 120/76 mm[Hg] RON Gordillo 5 10:46:05 Social History Question Answer Notes LastModified by Score The Board Details LastModified Time What Is Your Code [...] Functional Status Question Answer Note LastModified by Score The Board Details LastModified Time Do you use any [...] SNOMED-CT Code Diagnosis ICD10 Code Diagnosis Note [id number] Christin Thapa NP [place] [address] [address] [place] [address] 09/14/2024 10:35:34 09/14/2024 17:34:01 Chronic obstructive pulmonary disease 87446440 J44.9 Continue Breo Essential hypertension 89395922 I10 Continue Metoprolol Rheumatoid arthritis 698 90270 M06.9 Continue Xeljanz Acute maxi llary sinusitis 79751624 J01.00 Sensamist for allergies Goals Section Goal [...] Mar Member ID Guarantor Name 09/14/2024 1 WILLIAM: [employer] [place] [employer] (MEDICARE REPLACEMENT HMO) [id number] Jacque Worley [id number] Jacque Worley Notes Date Note Type Note [...] using OTC meds with minimal relief. Christin Thapa NP [address] [place], [address], [facility] 09/14/2024 17:48:21 OBGyn Episode No OBEpisode recorded.
--- OUTSIDE RECORDS SUMMARY | 2024-10-12 09:16 | XMS_ITS | Encounter Summary ---
Author Organization Healthcare Address [address] [place] [address] Care Team Providers Care Customer Management Specialist Name Role Phone Nico Moncada MD Unavailable [phone] Cali Snyder APRN Primary Care Provider [phone] Elba Alves DO Unavailable [phone] Encounter Details Date Type Department Care [...] [address] [place] [address] Mark Zurita MD [address] Dhaliwal [facility] [address] [place] [address] 01/21/2025 12:50 PM EST Office Visit [place] [facility] [address], [address] [place] [address] Lisa Leon, TELEPHONE DIRECTORY DISTRIBUTOR DRIVER [address] [place] [address] 09/30/2025 9:30 AM EDT Appointment [facility] Radiology [address] [place] [address] 09/30/2025 10:30 AM EDT Office Visit [facility] [address] [place] [address] Candido Fitzgerald MD [address] [place] [address] documented as of this encounter Visit Diagnoses Not on filedocumented in this encounter Additional Health Concerns Assessment Noted Time A fall risk assessment has been complete d for the patient 09/17/2024 3:19 PM EDT A Body Mass Index follow-up plan has been documented for the patient 09/17/2024 3:40 PM EDT documented as of this encounter Care Teams Customer Management Specialist Relationship Specialty Start Date End Date Cali Snyder, TELEPHONE DIRECTORY DISTRIBUTOR DRIVER [address] [place] [address] PCP - General 01/09/24 Nico Moncada MD [address] [place] [address] Referring Physician Cardiology 12/21/21 Elba Alves DO [address] [place], [place] [address], [place] [address] Resident 06/13/24 documented as of this encounter
--- OUTSIDE RECORDS SUMMARY | 2024-10-12 09:16 | XMS_ITS | Encounter Summary ---
Author Organization Healthcare Address [address] [place] [address] Care Team Providers Care Sample Room Supervisor Name Role Phone Nico Moncada MD Unavailable [phone] Cali Snyder APRN Primary Care Provider [phone] Elba Alves DO Unavailable [phone] Encounter Details Date Type Department Care Team (Latest Contact Info) Description 10/01/2024 Travel Social History Tobacco Use Types Packs/Day [...] Encounters Date Type Department Care Team ( st Contact Info) Description 01/01/2025 9:40 AM EDT Office Visit [facility] Gynecology [address] [place] [address] Mark Zurita MD [address] [place] [address] 01/21/2025 12:50 PM EST Office Visit [place] [facility] [address] [place] [address] Lisa Leon, WIND ENERGY TECHNICIAN [address] [place] [address] 09/30/2025 9:30 AM EDT Appointment [facility] [address] [place] [address] 09/30/2025 10:30 AM EDT Office Visit [facility] [address] [place] [address] Candido Fitzgerald MD [address] [place] [address] documented as of this encounter Visit Diagnoses Not on filedocumented in this encounter Additional Health Concerns Assessment Noted Time A fall risk assessment has been complete d for the patient 10/01/2024 10:28 AM EDT A Body Mass Index follow-up plan has been documented for the patient 10/05/2024 8:54 AM EDT documented as of this encounter Care Teams Sample Room Supervisor Relationship Specialty Start Date End Date Cali Snyder, WIND ENERGY TECHNICIAN [address] [place] [address] PCP - General 01/09/24 Nico Moncada MD [address] [place] [address] Referring Physician Cardiology 12/21/21 Elba Alves DO [address] [place] [address] Resident 06/13/24 documented as of this encounter
--- OUTSIDE RECORDS SUMMARY | 2024-10-12 09:16 | XMS_ITS | Encounter Summary ---
Author Organization Healthcare Address [address] [place] [address] Care Team Providers Care Before And After School Daycare Worker Name Role Phone Nico Moncada MD Unavailable [phone] Cali Snyder APRN Primary Care Provider [phone] Elba Alves DO Unavailable [phone] Encounter Details Date Type Department Care Team (Late st Contact Info) Description 10/04/2024 Telephone [place] [facility] [address] [place] [phone] Gloria Beavers, RN [facility] INTERVENTIONAL RADIOLOGY Social History Tobacco Use Types Packs/Day Years [...] encounter Miscellaneous Notes * Telephone Encounter - Gloria Beavers RN - 10/04/2024 3:54 PM EDT Letter has been mailed out to patient in re: to unread my chart message. documented in this encounter Plan of Treatment Upcoming Encounters Date Type Department Care Team ([facility] st Contact Info) Description 01/01/2025 9:40 AM EDT Office Visit [facility] Gynecology [address] [place] [address] Mark Zurita MD [address] Sig[address] Madhuri [facility] [address] [place] [address] 01/21/2025 12:50 PM EST Office Visit [place] [facility] [address] [place] [address] Lisa Leon, JUANJOSE [address] [place] [address] 09/30/2025 9:30 AM EDT Appointment [facility] Radiology [address] [place] [address] 09/30/2025 10:30 AM EDT Office Visit [facility] [address] [place] [address] Candido Fitzgerald MD [address] [place] [address] documented as of this encounter Visit Diagnoses Not on filedocumented in this encounter Additional Health Concerns Assessment Noted Time A fall risk assessment has been complete d for the patient 10/01/2024 10:28 AM EDT A Body Mass Index follow-up plan has been documented for the patient 10/05/2024 8:54 AM EDT documented as of this encounter Care Teams Before And After School Daycare Worker Relationship Specialty Start Date End Date Cali Snyder, ESCROW SECRETARY [address] [place], [place] [id number] PCP - General 01/09/24 Nico Moncada MD [address] [address] Referring Physician Cardiology 12/21/21 Elba Alves DO [address] [id number] Resident 06/13/24 documented as of this encounter
--- OUTSIDE RECORDS SUMMARY | 2024-10-12 09:16 | XMS_ITS | Encounter Summary ---
Author Organization Healthcare Address [address] [place] [address] Care Team Providers Care Parts Delivery Driver Name Role Phone Nico Moncada MD Unavailable [phone] Cali Snyder APRN Primary Care Provider [phone] Elba Alves DO Unavailable [phone] Encounter Details Date Type Department Care Team (Late st Contact Info) Description 09/19/2024 Results Follow-Up [place] [facility] [address] [place] [address] Lisa Leon APRN [address] [place] [address] Social History Tobacco Use Types [...] [address] [place] [address] Mark Zurita MD [address] Sigrid Tongrickson [facility] [address] [place] [address] 01/21/2025 12:50 PM EST Office Visit [place] [facility] [address] [place] [address] Lisa Leon APRN [address] [place] [address] 09/30/2025 9:30 AM EDT Appointment [facility] Radiology [address] [place] [address] 09/30/2025 10:30 AM EDT Office Visit [facility] [address] [place] [address] Candido Fitzgerald MD [address] [place] [address] documented as of this encounter Visit Diagnoses Not on filedocumented in this encounter Additional Health Concerns Assessment Noted Time A fall risk assessment has been complete d for the patient 09/17/2024 3:19 PM EDT A Body Mass Index follow-up plan has been documented for the patient 09/17/2024 3:40 PM EDT documented as of this encounter Care Teams Parts Delivery Driver Relationship Specialty Start Date End Date Cali Snyder APRN [address] [place] [address] PCP - General 01/09/24 Nico Moncada MD [address] [place] [facility] [address] [place] [address] Referring Physician Cardiology 12/21/21 Elba Alves DO [address] [facility] [address] [place] [address] Resident 06/13/24 documented as of this encounter
--- OUTSIDE RECORDS SUMMARY | 2024-10-12 09:16 | XMS_ITS | Clinical Summary ---
Author Organization [facility] [place] [facility] Address [address] [place] [address] Phone Care Team Providers Care Stockbroking Dealer Name Role Phone Unavailable Primary Care Provider [...] Vaccine (2023-2 5 season) 2023 Influenza Vaccine (#1) 2024 Hepatitis B Vaccine Aged Out No longe r eligible based on patient's age to complete this topic Meningococcal B Vaccine Aged Out No l onger eligible based on patient's age to complete this topic
--- OUTSIDE RECORDS SUMMARY | 2024-10-12 09:16 | XMS_ITS | Encounter Summary ---
Author Organization Healthcare Address [address] [place] [address] Care Team Providers Care Management Trainee Program Stores Name Role Phone Nico Moncada MD Unavailable [phone] Cali Snyder APRN Primary Care Provider [phone] Elba Alves DO Unavailable [phone] Encounter Details Date Type Department Care Team (Late st Contact Info) Description 09/17/2024 Refill [place] [facility] [address] [place] [address] Shauna Montemayor, PharmD Seropositive rheumatoid arthritis of multiple sites ([facility]) Social History Tobacco Use Types Packs/Day [...] [address] [place] [address] Mark Zurita MD [address] Sigrid Madhuri [facility] [address] [place] [address] 01/21/2025 12:50 PM EST Office Visit [place] [facility] [address] [place] [address] Lisa Leon, SHOULDER JOINER [address] [place] [address] 09/30/2025 9:30 AM EDT Appointment [facility] Radiology [address] [place] [address] 09/30/2025 10:30 AM EDT Office Visit [facility] Res[facility] [address] [place] [address] Candido Fitzgerald MD [address] [place] [address] documented as of this encounter Visit Diagnoses Diagnosis Seropositive rheumatoid arthritis of multiple sites (CMS/HCC) documented in this encounter Additional Health Concerns Assessment Noted Time A fall risk assessment has been complete d for the patient 09/17/2024 3:19 PM EDT A Body Mass Index follow-up plan has been documented for the patient 09/17/2024 3:40 PM EDT documented as of this encounter Care Teams Management Trainee Program Stores Relationship Specialty Start Date End Date Cali Snyder APRN [address] [place] [address] PCP - General 01/09/24 Nico Moncada MD [address] [address] Referring Physician Cardiology 12/21/21 Elba Alves DO [facility] [address] [address] Resident 06/13/24 documented as of this encounter
--- OUTSIDE RECORDS SUMMARY | 2024-10-12 10:14 | XMS_ITS | CCD ---
Author Name Christin Thapa NP Address [address] [facility] [address] [place] [address] Phone Organization [facility] Phone Care Team Providers Care Acid Purifier Name Role Phone Christin Thapa NP Primary Care Provider Unavaila ble Unavailable Chronic Care Management Unavaila ble Summary Purpose DataExchange Insurance Providers Payer name Policy type / Coverage type Covered green party ID Effective Begin Date Effective End Date [facility] [id number] Unknown Unknown Family history Father Diagnosis Age At Onset CAD (Coronary Artery Disease) Unknown Social History Social History Element Codes Description Effec tive Dates Marital status Unknown 06/13/2024 Number of children Unknown 2 Living arrangements Unknown Trailer 06/14/19 25 Number of children in household Unknown 0 06/13/2024 Number of adults in household Unknown 2 06/13/2024 Education level Unknown High School Graduate 05/20 Employment Unknown Retired from [employer] 06/13/2024 Tobacco history Unknown Former User 06/13/[address]: 127708458 Never drinks alco hol 06/13/2024 Illegal/Recreational drug history Unknown *Has never used illegal/recreational drugs 06/13/2024 DNR Order/ Advanced Directive Unknown Full Code 06/13/2024 Allergies, Adverse Reactions, Alerts Substance Reaction Codes Entered Date Inactivated Date Status *No known environmental allergies Unknown 06/13/2024 No Inactive Date Active ACETAMINOPHEN Unknown 01/09/2020 No Inactive Ino e Active CEPHALOSPORINS Unknown 12/03/2021 No Inactive Da te Active SALICYLATES Unknown 10/25/2019 No Inactive Date Active *No known food allergies Unknown 06/13/2024 No I nactive Date Active Problems Condition Codes Effective Dates Condition St atus COPD (chronic obstructive pu lmonary disease) ICD-10: J44.9 ICD-9: 496 06/13/2024 Active Hypertension ICD-10: I10 ICD-9: 401.9 06/13/2024 Active Rheumatoid arthritis ICD-10: M06.9 ICD-9: 714.0 06/13/2024 Active Unspecified atrial fibrillation ICD-10: I48.91 025 Active Chronic obstructive pulmonar y disease, unspecified ICD-10: J44.9 06/13/2024 Active Encounter for general adult medical examination without abnormal findings ICD-10: Z00.00 ICD-9: V70.9 06/13/2024 Active Rheumatoid arthritis with rheumatoid factor of right hand without organ or systems involvement ICD-10: M05.741 06/13/2024 Active BMI less than 19,adult ICD-10: Z68.1 11/05/2021 Acti ve COPD (chronic obstructive pu lmonary disease) ICD-10: J44.9 11/04/2021 Active Coronary artery disease ICD-10: I25.10 11/04/2021 Ac tive Fractured sternal wires ICD-10: T84.218A 11/04/2021 Active GERD (gastroesophageal reflu x disease) ICD-10: K21.9 11/04/2021 Active Hyperlipidemia ICD-10: E78.5 11/04/2021 Active Hypertension ICD-10: I10 11/04/2021 Active Rheumatoid arthritis ICD-10: M06.9 11/04/2021 Active Medications Medication Codes Instructions Start Date Stop Date Status Fill Instructions Lipitor 20 mg tablet RxNorm: 683850 Take 1 Tablet(s) Oral every day 07/31/19 25 026 Active Breo Ellipta 100 mcg-25 mcg/dose powder for inhalation RxNorm: 8340631 Inhale 1 Puff(s) Inhalation every day 07/31/19 25 025 Active Breo Ellipta 100 mcg-25 mcg/dose powder for inhalation RxNorm: 7009045 Inhale 1 Puff(s) Inhalation every day 06/14/19 25 025 Inactive Tofacitinib Citrate ER (Xeljanz XR) 11 MG tablet sustained-release 24 hour RxNorm: 7719371 Take 1 Tablet(s) Oral every day . 04/25/19 25 No Stop Date Active hydroxychloroquine (Plaquenil) 200 MG tablet RxNorm: 0419361 Take 1 Tablet(s) (200 mg) Oral every day . 01/09/20 24 No Stop Date Active oxybutynin XL (Ditropan-XL) 10 MG 24 hr tablet RxNorm: 787814 Take 1 Tablet(s) (10 mg) Oral every day . 10/18/19 24 No Stop Date Active estradiol (Estrace) 0.1 MG/GM vaginal cream RxNorm: 861770 USING FINGER TECHNIQUE DAILY FOR 2 WEEKS AND THEN TWICE WEEKLY VAGINALLY 10/17/19 24 No Stop Date Active hipjpoaz-elgmkxynf-yz xamethasone (Maxitrol) 3.5-32227-7.1 ophthalmic suspension RxNorm: 550481 opht 09/05/19 24 025 Inactive predniSONE (Deltasone) 5 MG tablet RxNorm: 802537 Take 3 tablets for 5 days, then take 2 tablets for 5 days, then take 1 tablet for 5 days. 09/01/19 24 No Stop Date Active metoprolol tartrate (Lopressor) 25 MG tablet RxNorm: 148710 Take 0.5 tablets (12.5 mg) by mouth 2 (two) times a day. 03/05/20 21 No Stop Date Active albuterol 108 (90 Base) MCG/ACT inhaler RxNorm: 1112591 INHALE 2 PUFFS BY MOUTH EVERY 4 TO 6 HOURS NEEDED FOR SHORTNESS OF BREATH OR WHEEZING 10/03/19 21 No Stop Date Active atorvastatin (Lipitor) 20 MG tablet RxNorm: 662589 1 (one) time each day. 09/09/19 21 025 Inactive pramipexole (Mirapex) 0.125 MG tablet RxNorm: 945139 TAKE 1 TABLET BY MOUTH NIGHTLY FOR RESTLESS LEGS 07/08/19 21 No Stop Date Active alendronate (Fosamax) 70 MG tablet RxNorm: 055959 TAKE 1 TABLET BY MOUTH EVERY WEEK ON SAME DAY EACH WEEK 06/24/19 21 No Stop Date Active Medication Administered No Medication Administered data Procedures Procedure Codes Date Most recent systolic blood pressure 130 to 139 m m CPT-4: 3075F 06/13/2024 Most recent diastolic blood pressure < 80 mm hg CPT-4: 3078F 06/13/2024 MED LIST DOCD IN [facility] CPT-4: 1159F 06/13/2024 RVW MEDS BY RX/DR IN [facility] CPT-4: 1160F 2024 Functional Status Assessed CPT-4: 1170F 06/13 Screening for clinical depre ssion is negative, follow-up plan not required CPT-4: G8510 06/13/2024 Vital Signs Date Vital 06/13/2024 Blood Pressure 1: 138/70 Code: 8480-6 BMI: 20.1 Code: 38068-5 Heart Rate 1: 65 bpm Height: 5'3 Code: 8302-2 Respiratory Rate: 16 bpm SpO2: 98% Temperature: 36.4 (C) / 97.6 (F) Weight: 113 lbs 4 oz Code: 02574-9 Reason For Visit Reason For Visit Effective Dates Notes established patient visit 07/30/2024 new patient welcome visit 06/13/2024 Encounters Encounter Performer Location Location Address Codes Date () (EST PT) LOW COMPLEXITY TELEHEALTH VISIT Diagnosis: COPD (chronic obstructive pulmonary disease)[ICD10: J44.9] Diagnosis: Rheumatoid arthritis[ICD10: M06.9] Diagnosis: Hypertension[ICD10 : I10] [facility] [address] [facility] [place] [address] CPT-4: 21068 07/30/2024 ([id number]) Home or Residence Visit CHAIR SPRINGER - Moderate Level, 60 mins Diagnosis: COPD (chronic obstructive pulmonary disease)[ICD10: J44.9] Diagnosis: Rheumatoid arthritis[ICD10: M06.9] Diagnosis: Hypertension[ICD10 : I10] Diagnosis: Encounter for general adult medical examination without abnormal findings[ICD10: Z00.00] [facility] [address] [facility] [address] [place] [address] CPT-4: 21801 06/13/2024 Plan of Care Planned Activity Notes Codes Status Date Visit Plan: This is a phone call only. Patient is in the [facility] and consents to treatment via telephone. Since our last visit patient has not fallen. States that her arthritis has been hurting a little more worse then ususal. States that she has been doing more. She had been doing some cooking for the family and was peeling potatoes. It made her hands very sore. When she does to much it will make her body hurt. States that she has been trying to rest today. She has lots of company this weekend. She is going to see an oncologist over her pap smear that showed cancer. States it is the initial visit with them. She had to wait for a time her daughter could take her. She is not have any issues with that at this time. States she is just nervous about taking with them. Her breathing has been doing okay. States that she is still using her medications as prescribed. She is asking for the referral phone number for the home repairs and medications. States she did not remember them. J44.9-496 COPD (chronic obstructive pulmonary disease) Continue albuterol and Breo M06.9-714.0 Rheumatoid arthritis Continue Xeljanz and plaquenil I10-401.9 Hypertension Continue Lopressor We did talk with the patient about contacting the referral numbers about getting applications for grants to help finish her bathroom. She can also hopefully get her Breo at a discounted saucedo. We did encourage her to continue all her medications as prescribed. We will follow up with her in one month. Patient will contact us sooner with any issues. Patient verbalized understanding and agreeable to plan of care. 07/30/2024 Appointment: Christin Thapa WPtel: [address] [facility] [address] [id number] ETV 07/30/2024 Patient Education: Patient Medication Summary Completed 07/30/2024 Visit Plan: This is a pleasant [age] year old female that presents to her welcome visit. Patient reports that she has a significant history of RA. She has been seeing a specialist at for years. It does affect some of her daily living skills. She has learned some new strategies to help with cutting little pills. She recently had an area on her labia that showed cancer cells. Her pap was okay. States that she is scheduled to see an oncologist in July for evaluation. She is unsure of what they will do with the area. She has had multiple UTI's in the past. States that the urologist she was sent to gave her some estrogen to use just on her urethra area. She states she is afraid to use it all the time. She used to smoke but has quit for many years now. Her Can Doffer gave her BREO to use but she reports it costs to much. She is paying 70 dollars a month for this and can not afford it. She also does not like the powder that she has to inhale.She does not check her blood pressure daily. She does not really follow a diet. She likes to snack on everything. States she just got her weight up after her last UTI. Her had to have some stents put in and has been unable to complete the bathroom remodel he started a year ago. J44.9-496 COPD (chronic obstructive pulmonary disease) Continue BREO M06.9-714.0 Rheumatoid arthritis Continue Plaquieneal I10-401.9 Hypertension Continue metoprolol Z00.00-V70.9 Encounter for general adult medical examination without abnormal findings We will place a referral for the patient in regards to home repairs and cost of medications. We did talk about using her estrogen every day until our next visit. We briefly talked about pelvic floor therapy. We will discuss at our next visit. Patient will continue her medications as prescribed. Patient will contact us with any question before her next appointment. Patient verbalized understanding and agreeable to plan of care. 06/13/2024 Appointment: Christin Thapa WPtel: [id number] [address] 06/13/2024 Patient Education: Patient Medication Summary Completed 06/13/2024 Instructions Comment Date . This is a phone call only. Patient is in the [facility] and consents to treatment via telephone. Since our last visit patient has not fallen. States that her arthritis has been hurting a little more worse then ususal. States that she has been doing more. She had been doing some cooking for the family and was peeling potatoes. It made her hands very sore. When she does to much it will make her body hurt. States that she has been trying to rest today. She has lots of company this weekend. She is going to see an oncologist over her pap smear that showed cancer. States it is the initial visit with them. She had to wait for a time her daughter could take her. She is not have any issues with that at this time. States she is just nervous about taking with them. Her breathing has been doing okay. States that she is still using her medications as prescribed. She is asking for the referral phone number for the home repairs and medications. States she did not remember them. J44.9-496 COPD (chronic obstructive pulmonary disease) Continue albuterol and Breo M06.9-714.0 Rheumatoid arthritis Continue Xeljanz and plaquenil I10-401.9 Hypertension Continue Lopressor We did talk with the patient about contacting the referral numbers about getting applications for grants to help finish her bathroom. She can also hopefully get her Breo at a discounted saucedo. We did encourage her to continue all her medications as prescribed. We will follow up with her in one month. Patient will contact us sooner with any issues. Patient verbalized understanding and agreeable to plan of care. 07/30/2024 Someone will reach out to bryanna ceron about the in home repairs and the medicine cost. This is a pleasant 73 year old female that presents to her welcome visit. Patient reports that she has a significant history of RA. She has been seeing a specialist at for years. It does affect some of her daily living skills. She has learned some new strategies to help with cutting little pills. She recently had an area on her labia that showed cancer cells. Her pap was okay. States that she is scheduled to see an oncologist in July for evaluation. She is unsure of what they will do with the area. She has had multiple UTI's in the past. States that the urologist she was sent to gave her some estrogen to use just on her urethra area. She states she is afraid to use it all the time. She used to smoke but has quit for many years now. Her Can Doffer gave her BREO to use but she reports it costs to much. She is paying 70 dollars a month for this and can not afford it. She also does not like the powder that she has to inhale.She does not check her blood pressure daily. She does not really follow a diet. She likes to snack on everything. States she just got her weight up after her last UTI. Her had to have some stents put in and has been unable to complete the bathroom remodel he started a year ago. J44.9-496 COPD (chronic obstructive pulmonary disease) Continue BREO M06.9-714.0 Rheumatoid arthritis Continue Plaquieneal I10-401.9 Hypertension Continue metoprolol Z00.00-V70.9 Encounter for general adult medical examination without abnormal findings We will place a referral for the patient in regards to home repairs and cost of medications. We did talk about using her estrogen every day until our next visit. We briefly talked about pelvic floor therapy. We will discuss at our next visit. Patient will continue her medications as prescribed. Patient will contact us with any question before her next appointment. Patient verbalized understanding and agreeable to plan of care. 06/13/2024 Medical Equipment No Medical Equipment data Advance Directives No Advance Directive data
--- OUTSIDE RECORDS SUMMARY | 2024-10-12 10:16 | XMS_ITS | CCD ---
Author Name Christin Thapa NP Address [address] [facility] [address] [place] [address] Phone Organization [facility] Phone Care Team Providers Care Ultrasound Supervisor Name Role Phone Christin Thapa NP Primary Care Provider Unavaila ble Unavailable Chronic Care Management Unavaila ble Summary Purpose DataExchange Insurance Providers Payer name Policy type / Coverage type Covered green party ID Effective Begin Date Effective End Date [facility] [id number] Unknown Unknown Family history Father Diagnosis Age [...] School Graduate 05/20 Employment Unknown Retired from [employer] 06/13/2024 Tobacco history Unknown Former User 06/13/[address]: [id number] Never drinks alco hol 06/13/2024 Illegal/Recreational drug [...] Fill Instructions Lipitor 20 mg tablet RxNorm: 633684 Take 1 Tablet(s) Oral every day 07/31/19 25 026 Active Breo Ellipta 100 mcg-25 mcg/dose powder for inhalation RxNorm: 8505918 Inhale 1 Puff(s) Inhalation every day 07/31/19 25 025 Active Breo Ellipta 100 mcg-25 mcg/dose powder for inhalation RxNorm: 3407832 Inhale 1 Puff(s) Inhalation every day 06/14/19 25 025 Inactive Tofacitinib Citrate ER (Xeljanz XR) 11 MG tablet sustained-release 24 hour RxNorm: 8747571 Take 1 Tablet(s) Oral every day . 04/25/19 25 No Stop Date Active hydroxychloroquine (Plaquenil) 200 MG tablet RxNorm: 3387609 Take 1 Tablet(s) (200 mg) Oral every day . 01/09/20 24 No Stop Date Active oxybutynin XL (Ditropan-XL) 10 MG 24 hr tablet RxNorm: 515979 Take 1 Tablet(s) (10 mg) Oral every day . 10/18/19 24 No Stop Date Active estradiol (Estrace) 0.1 MG/GM vaginal cream RxNorm: 606796 USING FINGER TECHNIQUE DAILY FOR 2 WEEKS AND THEN TWICE WEEKLY VAGINALLY 10/17/19 24 No Stop Date Active grqkmmeh-kmnbhgmlh-kc xamethasone (Maxitrol) 3.5-15018-4.1 ophthalmic suspension RxNorm: 689296 opht 09/05/19 24 025 Inactive predniSONE (Deltasone) 5 MG tablet RxNorm: 871952 Take 3 tablets for 5 days, then take 2 tablets for 5 days, then take 1 tablet for 5 days. 09/01/19 24 No Stop Date Active metoprolol tartrate (Lopressor) 25 MG tablet RxNorm: 180863 Take 0.5 tablets (12.5 mg) by mouth 2 (two) times a day. 03/05/20 21 No Stop Date Active albuterol 108 (90 Base) MCG/ACT inhaler RxNorm: 0245267 INHALE 2 PUFFS BY MOUTH EVERY 4 TO 6 HOURS NEEDED FOR SHORTNESS OF BREATH OR WHEEZING 10/03/19 21 No Stop Date Active atorvastatin (Lipitor) 20 MG tablet RxNorm: 093315 1 (one) time each day. 09/09/19 21 025 Inactive pramipexole (Mirapex) 0.125 MG tablet RxNorm: 989889 TAKE 1 TABLET BY MOUTH NIGHTLY FOR RESTLESS LEGS 07/08/19 21 No Stop Date Active alendronate (Fosamax) 70 MG tablet RxNorm: 891344 TAKE 1 TABLET BY MOUTH EVERY WEEK ON SAME DAY EACH WEEK 06/24/19 21 No Stop Date Active Medication Administered No Medication Administered data Procedures Procedure Codes Date Most recent systolic blood pressure 130 to 139 m m CPT-4: 3075F 06/13/2024 Most recent diastolic blood pressure < 80 mm hg CPT-4: 3078F 06/13/2024 MED LIST DOCD IN [facility] CPT-4: 1159F 06/13/2024 RVW MEDS BY RX/DR IN [facility] CPT-4: 1160F 2024 Functional Status Assessed CPT-4: 1170F 06/13 Screening for clinical depre ssion is negative, follow-up plan not required CPT-4: G8510 06/13/2024 Vital Signs Date Vital 06/13/2024 Blood Pressure 1: 138/70 Code: 8480-6 BMI: 20.1 Code: 60697-1 Heart Rate 1: 65 bpm Height: 5'3 Code: 8302-2 Respiratory Rate: 16 bpm SpO2: 98% Temperature: 36.4 (C) / 97.6 (F) Weight: 113 lbs 4 oz Code: 32931-6 Reason For Visit Reason For Visit Effective Dates Notes established patient visit 07/30/2024 new patient welcome visit 06/13/2024 Encounters Encounter Performer Location Location Address Codes Date () (EST PT) LOW COMPLEXITY TELEHEALTH VISIT Diagnosis: COPD (chronic obstructive pulmonary disease)[ICD10: J44.9] Diagnosis: Rheumatoid arthritis[ICD10: M06.9] Diagnosis: Hypertension[ICD10 : I10] [facility] [address] [facility] [place] [address] CPT-4: 85431 07/30/2024 ([id number]) Home or Residence Visit NEUROLOGY TECH - Moderate Level, 60 mins Diagnosis: COPD (chronic obstructive pulmonary disease)[ICD10: J44.9] Diagnosis: Rheumatoid arthritis[ICD10: M06.9] Diagnosis: Hypertension[ICD10 : I10] Diagnosis: Encounter for general adult medical examination without abnormal findings[ICD10: Z00.00] [facility] [address] [facility] [place] [address] CPT-4: 18428 06/13/2024 Plan of Care Planned Activity Notes Codes Status Date Visit Plan: This is a phone call only. Patient is in the [facility] and consents to treatment via telephone. [...] Appointment: Christin Thapa WPtel: [address] [facility] [address] [id number] ETV 07/30/2024 Patient Education: Patient Medication Summary [...] has quit for many years now. Her Coding Compliance Manager gave her BREO to use but she [...] of care. 06/13/2024 Appointment: Christin Thapa WPtel: [id number] [address] 06/13/2024 Patient Education: Patient Medication Summary Completed 06/13/2024 Instructions Comment Date . This is a phone call only. Patient is in the [facility] and consents to treatment via telephone. [...] has quit for many years now. Her Coding Compliance Manager gave her BREO to use but she [...]
== END 2024-10-12 23:59 | disposition home or self-care (01) ==
LOC: RAD 09:12
PROVIDERS: PCP Family Medicine; Visit Provider Family Medicine
DX: M81.0 Age-related osteoporosis without current pathological fracture (principal)
CPT/HCPCS: 77080

== ENCOUNTER 2024-10-16 10:05 | Outpatient (CLI) | payer MEDICARE, SELFPAY ==
--- OUTSIDE RECORDS SUMMARY | 2020-01-26 06:00 | XMS_ITS | Encounter Summary ---
Author Organization [facility] [address] Care Team Providers Care Airborne And Air Delivery Specialist Name Role Phone Unavailable Primary Care Provider Unavailabl e Encounter Details Date Type Department Care Team (Late st Contact Info) Description 01/26/2020 5:00 AM EST Hospital Encounter [facility] Referral Lab [address] [phone] Haroon Cain MD [address] [place] [address] Social History Tobacco Use Types Packs/Day Years [...]
--- OUTSIDE RECORDS SUMMARY | 2024-08-29 11:00 | XMS_ITS | Encounter Summary ---
Author Organization Healthcare Address [address] [id number] Care Team Providers Care Parts Order And Stock Clerk Name Role Phone Nico Moncada MD Unavailable [phone] Cali Snyder APRN Primary Care Provider [phone] Elba Alves DO Unavailable [phone] Encounter Details Date Type Department Care Team (Late st Contact Info) Description 08/29/2024 11:00 AM EDT Office Visit [facility] [address] [place] [address] Venancio Duran MD [address] [facility] [address] [place] [address] Severe vulvar dysplasia, histologically confirmed (Primary Dx) [...] m?? Physical Exam Exam conducted with a bottling attendant present. Constitutional: Appearance: Normal appearance. She is [...] Encounter time 20 min Venancio Duran MD [facility] [address] [place] [address] [facility] [address] Dept: [phone] Dept Loc: [phone] [1] Past Medical History: Diagnosis Date COPD [...] WIRES REMOVAL 12/09/2021 Dr Jose Delgado - [facility] TUBAL LIGATION N/A VULVA SURGERY Right [...] mouth. (Patient not taking: Reported on 07/31/2024) ywcpbstz-nchjjancf-zidoladpsxhzp (Maxitrol) 3.5-84601-0.1 ophthalmic suspension (Patient not taking: No sig [...] Gynecology [address] [place] [address] Mark Zurita MD [address] [facility] [address] [place] [address] 01/21/2025 12:50 PM EST Office Visit [place] [facility] [address] [place] [address] Lisa Leon, SENIOR UI WEB DEVELOPER [address] [place] [address] 09/30/2025 9:30 AM EDT Appointment [facility] [address] [place] [address] 09/30/2025 10:30 AM EDT Office Visit [facility] [address] [place] [address] Candido Fitzgerald MD [address] [facility] [address] [place] [address] documented as of this encounter Visit Diagnoses [...] documented as of this encounter Care Teams Parts Order And Stock Clerk Relationship Specialty Start Date End Date Cali Snyder APRN [address] [place] [address] PCP - General 01/09/24 Nico Moncada MD [address] [place] [address] Referring Physician Cardiology 12/21/21 Elba Alves DO [facility] [address] [address] Resident 06/13/24 documented as of this encounter
--- OUTSIDE RECORDS SUMMARY | 2024-09-17 15:20 | XMS_ITS | Encounter Summary ---
Author Organization Healthcare Address [address] [place] [address] Care Team Providers Care Waste Minimization Technician Name Role Phone Nico Moncada MD Unavailable [phone] Cali Snyder APRN Primary Care Provider [phone] Elba Alves DO Unavailable [phone] Reason for Visit * Reason Comments Follow-up Encounter Details Date Type Department Care Team (Latest Contact Info) Description 09/17/2024 3:20 PM EDT Office Visit [facility] [address], [address] [place] [address] Lisa Fowler APRN [address] [place] [address] Seropositive rheumatoid arthritis of multiple [...] of Seropositive rheumatoid arthritis of multiple sites ([facility]) [M05.79] Subjective HPI Jacque Worley is a [...] with rheumatology Dr. Oliver and changes to [facility] rheumatology due to insurance coverage. Med Hx: [...] Diagnosis Date COPD (chronic obstructive pulmonary disease) ([facility]) COVID-19 11/13/2021 Heart disease Hepatitis C Personal history of other diseases of the digestive system History of gallstones Personal history of other diseases of the musculoskeletal system and connective tissue History of osteoporosis Rheumatoid arthritis ([facility]) Skin cancer UTI (urinary tract infection) UTI (urinary tract infection) Past Surgical History: Procedure Laterality Date CARDIAC CATHETERIZATION N/A CATARACT EXTRACTION N/A CORONARY ARTERY BYPASS GRAFT N/A 12/25/2019 CABG x 1 - AGUILAR to LAD (Dr Jose Delgado) LEG SURGERY N/A STERNAL WIRES REMOVAL 12/09/2021 Dr Jose Delgado - [facility] TUBAL LIGATION N/A VULVA SURGERY Right 08/09/2024 [...] Status: Two children Employed [employer] Financial Resource Strain: Not on file Food [...] Multiple Vitamin (MULTIVITAMINS PO) Take by mouth. avoweuqr-oowyvbowp-zzbxjqqwqixcz (Maxitrol) 3.5-24225-7.1 ophthalmic suspension nystatin (Mycostatin) 586831 UNIT/ML suspension ondansetron (Zofran) 4 MG tablet [...] Case Report 08/09/2024 Final Value:Surgical Pathology Case: [id number] Authorizing Provider: Venancio Duran MD Collected: 08/09/2024 7627 Ordering Location: [facility] OPERATING ROOM Received: 08/09/2024 1630 Pathologist: Jay [...] Posterior tip Cold Time: 32m DANIELLE Hassan ([facility]) Note: 08/09/2024 Final Value:A resident was involved [...] today 2. High risk medication use 3. prison use of immunosuppressant medication She has appt [...] Gynecology [address] [place] [address] Mark Zurita MD [address] [facility] [address] [place] [address] 01/21/2025 12:50 PM EST Office [facility] [address] [place] [address] Lisa Fowler APRN [address] [place] [address] 09/30/2025 9:30 AM EDT Appointment [facility] Radiology [address] [place] [address] 09/30/2025 10:30 AM EDT Office Visit [facility] [address] [place] [address] Candido Fitzgerald MD [address] [place] [address] documented as of this encounter Results * [...] heads with MCP joint space narrowing. Diffuse mwee-gu-gdrlxkuz interphalangeal joint space narrowing. Carpal rows are intact. No soft tissue swelling. Left hand/wrist: No acute fracture. Similar radial subluxation of the thumb MCP joint. Similar erosive changes of the thumb metacarpal head. Diffuse aaqd-un-tdutlwlb interphalangeal joint space narrowing. Carpal rows are [...] metacarpal heads with MCP jointspace narrowing. Diffuse vorr-ty-enoimgtw interphalangeal joint spacenarrowing. Carpal rows are intact. No soft tissue swelling. Left hand/wrist: No acute fracture. Similar radial subluxation of thethumb MCP joint. Similar erosive changes of the thumb metacarpal head.Diffuse qrvo-ie-csfapsrb interphalangeal joint space narrowing. Carpalrows are intact. [...] MD on 09/17/2024 4:31 PM Lisa Fowler CARDIOVASCULAR RN IMG XR PROCEDURES Final R esult * [...] heads with MCP joint space narrowing. Diffuse kpgb-oi-cyllfews interphalangeal joint space narrowing. Carpal rows are intact. No soft tissue swelling. Left hand/wrist: No acute fracture. Similar radial subluxation of the thumb MCP joint. Similar erosive changes of the thumb metacarpal head. Diffuse feni-pc-yjvtadvv interphalangeal joint space narrowing. Carpal rows are [...] metacarpal heads with MCP jointspace narrowing. Diffuse jrdn-fa-jeuzrupn interphalangeal joint spacenarrowing. Carpal rows are intact. No soft tissue swelling. Left hand/wrist: No acute fracture. Similar radial subluxation of thethumb MCP joint. Similar erosive changes of the thumb metacarpal head.Diffuse fmkx-zx-xagmktfe interphalangeal joint space narrowing. Carpalrows are intact. [...] MD on 09/17/2024 4:31 PM Lisa Fowler CARDIOVASCULAR RN IMG XR PROCEDURES Final R esult * [...] 4:23 PM Final report signed by Leeann oChen MD on 09/17/2024 4:31 PM Narrative 09/17/2024 [...] heads with MCP joint space narrowing. Diffuse zrrk-xx-ofwhwjrp interphalangeal joint space narrowing. Carpal rows are intact. No soft tissue swelling. Left hand/wrist: No acute fracture. Similar radial subluxation of the thumb MCP joint. Similar erosive changes of the thumb metacarpal head. Diffuse gtrt-vw-gzmvvsxz interphalangeal joint space narrowing. Carpal rows are [...] metacarpal heads with MCP jointspace narrowing. Diffuse ludx-bx-ijnqpjhh interphalangeal joint spacenarrowing. Carpal rows are intact. No soft tissue swelling. Left hand/wrist: No acute fracture. Similar radial subluxation of thethumb MCP joint. Similar erosive changes of the thumb metacarpal head.Diffuse kgqc-zg-uuhbdazz interphalangeal joint space narrowing. Carpalrows are intact. [...] documented as of this encounter Care Teams Waste Minimization Technician Relationship Specialty Start Date End Date Cali Snyder APRN [address] [place] [address] PCP - General 01/09/24 Nico Moncada MD [address] [place], [place] [id number] Referring Physician Cardiology 12/21/21 Elba Alves DO [address] [address] Resident 06/13/24 documented as of this encounter
--- OUTSIDE RECORDS SUMMARY | 2024-09-17 15:51 | XMS_ITS | Encounter Summary ---
Author Organization Healthcare Address [address] [place] [address] Care Team Providers Care Can Tester Name Role Phone Nico Moncada MD Unavailable [phone] Cali Snyder APRN Primary Care Provider [phone] Elba Alves DO Unavailable [phone] Encounter Details Date Type Department Care Team (Latest Contact Info) Description 09/17/2024 3:51 PM EDT - 09/17/2024 11:59 PM EDT Hospital Encounter [place] [facility] [address], [address] [place] [address] Seropositive rheumatoid arthritis of multiple [...] PO) Take by mouth. neomycin-polymyx in-dexamethasone (Maxitrol) 3.5-39763-7.1 ophthalmic suspension 09/05/2023 nystatin (Mycostatin) 449441 UNIT/ML suspension 09/13/2024 ondansetron (Zofran) 4 MG [...] [facility] [address] [place] [phone] Mark Zurita MD [address] [facility] [address] [place] [address] 01/21/2025 12:50 PM EST Office Visit [place] [facility] [address] [place] [address] Lisa Leon, JUANJOSE [address] [place] [address] 09/30/2025 9:30 AM EDT Appointment [facility] Rad[facility] [address] [place] [address] 09/30/2025 10:30 AM EDT Office Visit [facility] [address] [place] [phone] Candido Fitzgerald MD [address] [place] [id number] documented as of this encounter Procedures Procedure Name Priority Date/Time Associated Diagnosis Comments XR HAND WRIST BILATERAL 2 VIEWS Routine 09/17/2024 4:08 PM EDT Seropositive rheumatoid arthritis of multiple sites ([facility]) High risk medication use Long-term use of immunosuppressant medication XR FOOT RIGHT 3+ VIEWS Routine 09/17/2024 4:08 PM EDT Seropositive rheumatoid arthritis of multiple sites ([facility]) High risk medication use Long-term use of immunosuppressant medication XR FOOT LEFT 3+ VIEWS Routine 09/17/2024 4:08 PM EDT Seropositive rheumatoid arthritis of multiple sites ([facility]) High risk medication use Long-term use of [...] heads with MCP joint space narrowing. Diffuse aaka-xa-nyipckxo interphalangeal joint space narrowing. Carpal rows are intact. No soft tissue swelling. Left hand/wrist: No acute fracture. Similar radial subluxation of the thumb MCP joint. Similar erosive changes of the thumb metacarpal head. Diffuse eyvb-vo-evnunzkb interphalangeal joint space narrowing. Carpal rows are [...] metacarpal heads with MCP jointspace narrowing. Diffuse eomv-si-muorxdnu interphalangeal joint spacenarrowing. Carpal rows are intact. No soft tissue swelling. Left hand/wrist: No acute fracture. Similar radial subluxation of thethumb MCP joint. Similar erosive changes of the thumb metacarpal head.Diffuse vppk-ug-sxetjdxd interphalangeal joint space narrowing. Carpalrows are intact. [...] MD on 09/17/2024 4:31 PM Lisa Leon [employer] IMG XR PROCEDURES Final R esult * [...] heads with MCP joint space narrowing. Diffuse apin-vz-jkpqeidv interphalangeal joint space narrowing. Carpal rows are intact. No soft tissue swelling. Left hand/wrist: No acute fracture. Similar radial subluxation of the thumb MCP joint. Similar erosive changes of the thumb metacarpal head. Diffuse yxww-iz-mqvimhqx interphalangeal joint space narrowing. Carpal rows are [...] metacarpal heads with MCP jointspace narrowing. Diffuse ojmy-mg-puconqsw interphalangeal joint spacenarrowing. Carpal rows are intact. No soft tissue swelling. Left hand/wrist: No acute fracture. Similar radial subluxation of thethumb MCP joint. Similar erosive changes of the thumb metacarpal head.Diffuse adfc-vv-jkefawav interphalangeal joint space narrowing. Carpalrows are intact. [...] MD on 09/17/2024 4:31 PM Lisa Leon [employer] IMG XR PROCEDURES Final R esult * [...] heads with MCP joint space narrowing. Diffuse hcdq-vg-ffyvucqu interphalangeal joint space narrowing. Carpal rows are intact. No soft tissue swelling. Left hand/wrist: No acute fracture. Similar radial subluxation of the thumb MCP joint. Similar erosive changes of the thumb metacarpal head. Diffuse djvt-nu-bnyivbtn interphalangeal joint space narrowing. Carpal rows are [...] metacarpal heads with MCP jointspace narrowing. Diffuse nklm-tr-tcdwfrwk interphalangeal joint spacenarrowing. Carpal rows are intact. No soft tissue swelling. Left hand/wrist: No acute fracture. Similar radial subluxation of thethumb MCP joint. Similar erosive changes of the thumb metacarpal head.Diffuse dccy-fq-syfhgjtv interphalangeal joint space narrowing. Carpalrows are intact. [...] Cohen MD on 09/17/2024 4:31 PM Lisa Gregorio Leon APRN IMG XR PROCEDURES Final R esult documented in this encounter Visit Diagnoses Diagnosis Seropositive rheumatoid arthritis of multiple sites ([facility]) High risk medication use Long-term use of immunosuppressant medication documented in this encounter Additional Health Concerns Assessment Noted Time A fall risk assessment has been complete d for the patient 09/17/2024 3:19 PM EDT A Body Mass Index follow-up plan has been documented for the patient 09/17/2024 3:40 PM EDT documented as of this encounter Care Teams Can Tester Relationship Specialty Start Date End Date Cali Snyder APRN [address] [place] [id number] PCP - General 01/09/24 Nico Moncada MD [address] [id number] Referring Physician Cardiology 12/21/21 lEba Alves DO [address] [address] Resident 06/13/24 documented as of this encounter
--- OUTSIDE RECORDS SUMMARY | 2024-10-01 09:20 | XMS_ITS | Encounter Summary ---
Author Organization Healthcare Address [address] [place] [address] Care Team Providers Care Linen Attendant Name Role Phone Nico Moncada MD Unavailable [phone] Cali Snyder APRN Primary Care Provider [phone] Elba Alves DO Unavailable [phone] Reason for Referral * Imaging (Routine) - Closed Specialty Diagnoses / Procedures Referred By Norma webb Referred To Contact Radiology Diagnoses Lung nodule Procedures CT Chest wo IV Contrast Candido Fitzgerald MD [address] [address] Phone: tel: fax: Referral ID Status Reason Start Date Expiration Date Visits Re quested Visits Authorized [id number] Closed 07/02/2024 01/01/2026 1 1 Reason for Visit * Imaging (Routine) - Closed Specialty Diagnoses / Procedures Referred By Norma webb Referred To Contact Radiology Diagnoses Lung nodule Procedures CT Chest wo IV Contrast Candido Fitzgerald MD [address] [address] Phone: tel: fax: Referral ID Status Reason Start Date Expiration Date Visits Re quested Visits Authorized [id number] Closed 07/02/2024 01/01/2026 1 1 Encounter Details Date Type Department Care Team (Latest Contact Info) Description 10/01/2024 9:20 AM EDT - 10/01/2024 11:59 PM EDT Hospital Encounter [facility] [address] [place] [address] Lung nodule Discharge Disposition: Home or Self [...] PO) Take by mouth. neomycin-polymyx in-dexamethasone (Maxitrol) 3.5-12982-2.1 ophthalmic suspension 09/05/2023 nystatin (Mycostatin) 140599 UNIT/ML suspension 09/13/2024 ondansetron (Zofran) 4 MG [...] Gynecology [address] [place] [address] Mark Zurita MD [address] [place] [address] 01/21/2025 12:50 PM EST Office Visit [facility] [address] [place] [address] Lisa Leon, PERSONAL CAREGIVER [address] [place] [address] 09/30/2025 9:30 AM EDT Appointment [facility] [address] [place] [address] 09/30/2025 10:30 AM EDT Office Visit [facility] [address] [place] [address] Candido Fitzgerald MD [address] [place] [address] documented as of this encounter [...] documented as of this encounter Care Teams Linen Attendant Relationship Specialty Start Date End Date Cali Snyder APRN [address] [place] [address] PCP - General 01/09/24 Nico Moncada MD [address] [place] [address] Referring Physician Cardiology 12/21/21 Elba Alves DO [address] [place], [place] [address] Resident 06/13/24 documented as of this encounter
--- OUTSIDE RECORDS SUMMARY | 2024-10-01 10:15 | XMS_ITS | Encounter Summary ---
Author Organization Healthcare Address [address] [place] [address] Care Team Providers Care Engraving Plate Maker Name Role Phone Nico Moncada MD Unavailable [phone] Cali Snyder APRN Primary Care Provider [phone] Elba Alves DO Unavailable [phone] Reason for Referral * Imaging (Routine) - Pending Review Specialty Diagnoses / Procedures Referred By Norma webb Referred To Contact Radiology Diagnoses Lung nodule Procedures CT Chest wo IV Contrast Candido Fitzgerald MD [address] [address] Phone: tel: fax: Referral ID Status Reason Start Date Expiration Date V isits Requested Visits Authorized [id number] Pending Review 10/01/2024 04/02/2026 1 1 Reason for Visit * Reason Comments Follow-up Encounter Details Date Type Department Care Team ([facility] Contact Info) Description 10/01/2024 10:15 AM EDT Office Visit [facility] Res[facility] [address] [place] [address] Candido Fitzgerald MD [address] [address] Lung nodule Social History Tobacco [...] from the original note were not included. [facility] Department of Surgery Section of Thoracic Surgery [...] Upcoming Encounters Date Type Department Care Team ([facility] st Contact Info) Description 01/01/2025 9:40 AM EDT Office Visit [facility] Gynecology 800 [facility] [address] [place] [address] Mark Zurita MD 800 [facility] Madhuri [facility] [address] [place] [address] 01/21/2025 12:50 PM EST Office Visit [place] [facility] [address] [place] [address] Lisa Leon, DIRECTOR WEB [address] [place] [address] 09/30/2025 9:30 AM EDT Appointment [facility] Radiology [address] [place] [address] 09/30/2025 10:30 AM EDT Office Visit [facility] [address] [facility], 2nd [place] [address] Candido Fitzgerald MD [address] [place] [address] Scheduled Orders Name Type Priority Associated Diagnoses [...] documented as of this encounter Care Teams Engraving Plate Maker Relationship Specialty Start Date End Date Cali Snyder APRN [address] [place] [address] PCP - General 01/09/24 Nico Moncada MD [address] [address] Referring Physician Cardiology 12/21/21 Elba Alves DO [address] [address] Resident 06/13/24 documented as of this encounter
--- OUTSIDE RECORDS SUMMARY | 2024-10-16 10:11 | XMS_ITS | Clinical Summary ---
Author Organization Healthcare Address [address] [place] [address] Care Team Providers Care Discharge Door Operator Name Role Phone Nico Moncada MD Unavailable [phone] Cali Snyder APRN Primary Care Provider [phone] Elba Alves DO Unavailable [phone] Allergies Active Allergy Reactions Criticality Noted [...] 10/17/19 24 Active neomycin-poly myxin-dexamet hasone (Maxitrol) 3.5-01683-9.1 ophthalmic suspension 09/05/19 24 Active oxybutynin XL [...] DAILY NEEDED FOR RASH Active nystatin (Mycostatin) 799844 UNIT/ML suspension 09/14/19 25 Active hydroxychloro quine [...] Type Department Care Team Description 10/04/2024 Telephone [place] [facility] Medicine Special[facility] [address], [address] [place] [address] Gloria Beavers RN 10/01/2024 10:15 AM EDT Office Visit [facility] [address] 2nd [place] [address] Candido Fitzgerald MD Lung nodule 10/01/2024 9:20 AM EDT - 10/01/2024 11:59 PM EDT Hospital Encounter [facility] Radiology [address] [place] [address] Lung nodule Discharge Disposition: Home or Self Care 10/01/2024 Travel 09/19/2024 Results Follow-Up [facility] Medicine Specialties [address], [address]nd [place] [phone] Lisa Leon APRN 09/17/2024 3:51 PM EDT - 09/17/2024 11:59 PM EDT Hospital Encounter [facility] Radiology [address], 1st [place] [phone] Seropositive rheumatoid arthritis of multiple sites ([facility]); High risk medication use; Long-term use of immunosuppressant medication Discharge Disposition: Home or Self Care 09/17/2024 3:20 PM EDT Office Visit [facility] Medicine Specialties [address], [address] [place] [phone] Lisa Leon, JUANJOSE Seropositive rheumatoid arthritis of multiple sites ([facility]) (Primary Dx); High risk medication use; Long-term use of immunosuppressant medication 09/17/2024 Telephone [facility] Medicine Specialties [address], [address] [place] [address] Lori Garcia 09/17/2024 Refill [facility] Medicine Specialties [address], [address] [place] [phone] Shauna Montemayor, PharmD Seropositive rheumatoid arthritis of multiple sites ([facility]) 09/17/2024 Travel 08/29/2024 11:00 AM EDT Office Visit [facility] Gynecology [address] [place] [phone] Venancio Duran MD Severe vulvar dysplasia, histologically confirmed (Primary Dx) 08/29/2024 Travel 08/17/2024 Results Follow-Up [facility] Gynecology [address] [place] [phone] Venancio Duran MD 08/17/2024 Refill [facility] Medicine Specialties [address], [address] [place] [phone] Shauna Montemayor, PharmD Seropositive rheumatoid arthritis of multiple sites (CMS/HCC) 08/09/2024 3:11 PM EDT Anesthesia Event [facility] OPERATING ROOM [address] [place] [address] Gely Major CRNA, Kortney Weldon MD 08/09/2024 2:45 PM EDT - 08/09/2024 4:45 PM EDT Surgery [facility] [address] [place] [phone] Venancio Duran MD SPV [[id number] (CPT )] 08/09/2024 1:19 PM EDT - 08/09/2024 6:00 PM EDT Hospital Encounter [facility] [address] [place] [phone] Venancio Duran MD Severe vulvar dysplasia, histologically confirmed Discharge Disposition: Home or Self Care 08/09/2024 Travel 08/02/2024 3:30 PM EDT [facility] Testing [place] [facility] [address], [address] [place] [address] 08/02/2024 Travel 07/31/2024 11:50 AM EDT Clinical Support [facility] Gynecology [address] [address] [address] [place] [phone] Carcinoma in situ of vulva 07/31/2024 10:30 AM EDT Office Visit [facility] Gynecology 800 [facility] [address] [place] [address] Mark Zurita MD Severe vulvar [...] [address] [place] [phone] Mark Zurita MD [address] [facility] [address] [place] [phone] 01/21/2025 12:50 PM EST Office Visit [place] [facility] [address], [address]nd [place] [address] Lisa Leon, SPOT CLEANER [address] [place] [address] 09/30/2025 9:30 AM EDT Appointment [facility] Radiology [address] [place] [phone] 09/30/2025 10:30 AM EDT Office Visit [facility] Head[facility] Neck [facility] Respiratory [address] 2[address] [place] [phone] Candido Fitzgerald MD [address] [place] [address] Health Maintenance Due Date Last [...] - Risk 60-74 years 1-dose series) 2012 [id number] Vaccine (2 - Deb risk series) 06/25/2020 [...] ANESTHESIA PLACEHOLDER Routine 08/09/2024 3:19 PM EDT MA AN ELECTIVE SUPRAGLOTTIC AIRWAY Routine 08/09/2024 3:19 PM EDT MA PART SIMPLE REMV VULVA 08/09/2024 2:59 PM [...] heads with MCP joint space narrowing. Diffuse zjvu-be-qqpibvrb interphalangeal joint space narrowing. Carpal rows are intact. No soft tissue swelling. Left hand/wrist: No acute fracture. Similar radial subluxation of the thumb MCP joint. Similar erosive changes of the thumb metacarpal head. Diffuse tzyy-rc-vilzjjdz interphalangeal joint space narrowing. Carpal rows are [...] metacarpal heads with MCP jointspace narrowing. Diffuse pfyw-mn-qgxidkbr interphalangeal joint spacenarrowing. Carpal rows are intact. No soft tissue swelling. Left hand/wrist: No acute fracture. Similar radial subluxation of thethumb MCP joint. Similar erosive changes of the thumb metacarpal head.Diffuse bqmb-wm-fwabheco interphalangeal joint space narrowing. Carpalrows are intact. [...] heads with MCP joint space narrowing. Diffuse vqbv-rf-mbjvqxmt interphalangeal joint space narrowing. Carpal rows are intact. No soft tissue swelling. Left hand/wrist: No acute fracture. Similar radial subluxation of the thumb MCP joint. Similar erosive changes of the thumb metacarpal head. Diffuse lamq-od-ocqdison interphalangeal joint space narrowing. Carpal rows are [...] metacarpal heads with MCP jointspace narrowing. Diffuse txgl-rw-nkfaqvoq interphalangeal joint spacenarrowing. Carpal rows are intact. No soft tissue swelling. Left hand/wrist: No acute fracture. Similar radial subluxation of thethumb MCP joint. Similar erosive changes of the thumb metacarpal head.Diffuse bqqn-kb-ajjqffbj interphalangeal joint space narrowing. Carpalrows are intact. [...] heads with MCP joint space narrowing. Diffuse ryik-bi-vwffrauf interphalangeal joint space narrowing. Carpal rows are intact. No soft tissue swelling. Left hand/wrist: No acute fracture. Similar radial subluxation of the thumb MCP joint. Similar erosive changes of the thumb metacarpal head. Diffuse pkwu-ul-mjliftot interphalangeal joint space narrowing. Carpal rows are [...] metacarpal heads with MCP jointspace narrowing. Diffuse qeyv-sn-rfofgyjc interphalangeal joint spacenarrowing. Carpal rows are intact. No soft tissue swelling. Left hand/wrist: No acute fracture. Similar radial subluxation of thethumb MCP joint. Similar erosive changes of the thumb metacarpal head.Diffuse hkvz-uf-qlfhofjf interphalangeal joint space narrowing. Carpalrows are intact. [...] MD on 09/17/2024 4:31 PM Lisa Leon SPOT CLEANER IMG XR PROCEDURES Final R esult * Surgical Pathology Exam (08/09/2024 3:58 PM EDT) Case Report Surgical Pathology Case: [id number] Authorizing Provider: Venancio Duran MD Collected: 08/09/2024 2938 Ordering Location: [facility] OPERATING ROOM Received: 08/09/2024 1630 Pathologist: Jay Wong MD Specimen: Other (specify site), Perineal Body Lesion 08/15/2024 3:11 PM EDT [facility] Final Diagnosis A. VULVA, PERINEAL BODY LESION, EXCISION: - HIGH-GRADE SQUAMOUS INTRAEPITHELIAL LESION (HSIL, OLIVIA II, MODERATE DYSPLASIA). - THE HIGH-GRADE DYSPLASIA EXTENDS TO THE ANTERIOR AND POSTERIOR TIPS. 08/15/2024 3:11 PM EDT [facility] at 1511 EDT Clinical Information Severe vulvar dysplasia, histologically confirmed [D07.1] 08/15/2024 3:11 PM EDT [facility] Gross Description A. PERINEAL BODY LESION [...] DANIELLE Hassan (ASCP) 08/15/2024 3:11 PM EDT [facility] Note: A resident was involved in the service. I attest I examined the relevant preparations for the specimens and confirmed the diagnosis or interpretation. 08/15/2024 3:11 PM EDT [facility] Tissue Topography unknown / Unknown 08/09/2024 3:58 PM EDT 08/09/2024 4:30 PM EDT Comment:Pre-op diagnosis: Severe vulvar dysplasia, histologically confirmed [D07.1] us Venancio Duran MD LAB PATHOLOGY ORDERABLES F inal Result [facility] [place] [address] * MA AN ELECTIVE SUPRAGLOTTIC AIRWAY, PB ANESTHESIA PLACEHOLDER (08/09/2024 3:19 PM EDT) Narrative Gely Major CRNA, DNP - 08/09/2024 3:19 PM EDT Gely Major CRNA, DNP 08/09/2024 3:32 PM Airway Date/Time: 08/09/2024 3:19 PM Reason: elective Airway not difficult General Information and Staff Patient location during procedure: [place] [facility]: Gely Major CRNA, DNP Performed: [place] Patient [...] LAB HEMATOLOGY METHOD 07/31/2024 1:08 PM EDT [facility] RBC Count 4.45 3.90 - 5.20 10*6/uL LAB HEMATOLOGY METHOD 07/31/2024 1:08 PM EDT [facility] HGB 13.0 11.2 - 15.7 g/dL LAB HEMATOLOGY METHOD 07/31/2024 1:08 PM EDT [facility] HCT 38.5 34.0 - 45.0 % LAB HEMATOLOGY METHOD 07/31/2024 1:08 PM EDT [facility] Platelet Count 175 155 - 369 10*3/uL LAB HEMATOLOGY METHOD 07/31/2024 1:08 PM EDT [facility] MCV 87 79 - 98 fL LAB HEMATOLOGY METHOD 07/31/2024 1:08 PM EDT [facility] MCH 29.2 26.0 - 32.0 pg LAB HEMATOLOGY METHOD 07/31/2024 1:08 PM EDT [facility] MCHC 33.8 30.7 - 35.5 g/dL LAB HEMATOLOGY METHOD 07/31/2024 1:08 PM EDT [facility] RDW 14.1 11.5 - 14.5 % LAB HEMATOLOGY METHOD 07/31/2024 1:08 PM EDT [facility] MPV 11.1 8.8 - 12.5 fL LAB HEMATOLOGY METHOD 07/31/2024 1:08 PM EDT [facility] nRBC 0.0 <=0.0 per 100 WBCs LAB HEMATOLOGY METHOD 07/31/2024 1:08 PM EDT [facility] Differential Type Automated LAB HEMATOLOGY METHOD 07/31/2024 1:08 PM EDT [facility] Neutrophils % 66 % LAB HEMATOLOGY METHOD 07/31/2024 1:08 PM EDT [facility] Lymphocytes % 23 % LAB HEMATOLOGY METHOD 07/31/2024 1:08 PM EDT [facility] Monocytes % 9 % LAB HEMATOLOGY METHOD 07/31/2024 1:08 PM EDT [facility] Eosinophils % 1 % LAB HEMATOLOGY METHOD 07/31/2024 1:08 PM EDT [facility] Basophils % 1 % LAB HEMATOLOGY METHOD 07/31/2024 1:08 PM EDT [facility] Immature Granulocytes % 0 % LAB HEMATOLOGY METHOD 07/31/2024 1:08 PM EDT [facility] Neutrophils Absolute 3.84 1.60 - 6.10 10*3/uL LAB HEMATOLOGY METHOD 07/31/2024 1:08 PM EDT [facility] Lymphocytes Absolute 1.37 1.20 - 3.90 10*3/uL LAB HEMATOLOGY METHOD 07/31/2024 1:08 PM EDT [facility] Monocytes Absolute 0.51 0.30 - 0.90 10*3/uL LAB HEMATOLOGY METHOD 07/31/2024 1:08 PM EDT [facility] Eosinophils Absolute 0.07 0.00 - 0.50 10*3/uL LAB HEMATOLOGY METHOD 07/31/2024 1:08 PM EDT [facility] Basophils Absolute 0.04 0.00 - 0.10 10*3/uL LAB HEMATOLOGY METHOD 07/31/2024 1:08 PM EDT [facility] Immature Granulocytes Absolute 0.02 0.00 - 0.06 10*3/uL LAB HEMATOLOGY METHOD 07/31/2024 1:08 PM EDT [facility] Blood Venous blood specimen / Unknown Venipuncture / Unknown 07/31/2024 12:03 PM EDT 07/31/2024 12:52 PM EDT Narrative [facility] - 07/31/2024 1:08 PM EDT Therapeutic decision making should be based on absolute values, rather than percentages. Mark Zurita MD LAB BLOOD ORDERABLES Final Res ult Performing Organization Address [facility] Co de Phone Number [facility] [address] [place] [address] * Hemoglobin A1c (07/31/2024 12:03 PM EDT) Hemoglobin A1c 5.3 <5.7 % 07/31/2024 2:16 PM EDT [facility] Blood Venous blood specimen / Unknown Venipuncture / Unknown 07/31/2024 12:03 PM EDT 07/31/2024 12:52 PM EDT Narrative [facility] - 07/31/2024 2:16 PM EDT HA1C Interpretive Data: Diagnosis of Diabetes: Diabetic > or = 6.5% Pre-diabetic 5.7 to 6.4% Non-diabetic < or = 5.6% Glycemic Targets for Type I and Type II Diabetics: Non- Adults <7.0% Adults <6.0% Children and Adolescents <7.5% Source: [place] [employer]. Standards of medical care in diabetes,2017. Diabetes Care.2017:40 (suppl 1):S1-S135. us Mark Zurita MD LAB BLOOD ORDERABLES Final Res ult Performing Organization Address [facility] [place] [address] * Comprehensive Metabolic Panel, Plasma (07/31/2024 12:03 PM EDT) Glucose, Plasma 90 74 - 99 mg/dL 07/31/2024 1:09 PM EDT [facility] BUN, Plasma 12 8 - 23 mg/dL 07/31/2024 1:09 PM EDT [facility] Creatinine, Plasma 0.86 0.60 - 1.10 mg/dL 07/31/2024 1:09 PM EDT [facility] BUN/Creatinine Ratio 14 07/31/2024 1:09 PM EDT [facility] Sodium, Plasma 138 136 - 145 mmol/L 07/31/2024 1:09 PM EDT [facility] Potassium, Plasma 4.1 3.6 - 4.9 mmol/L 07/31/2024 1:09 PM EDT [facility] Chloride, Plasma 104 97 - 107 mmol/L 07/31/2024 1:09 PM EDT [facility] CO2, Plasma 26 22 - 29 mmol/L 07/31/2024 1:09 PM EDT [facility] Anion Gap 8 6 - 16 mmol/L 07/31/2024 1:09 PM EDT [facility] Total Calcium, Plasma 9.5 8.9 - 10.2 mg/dL 07/31/2024 1:09 PM EDT [facility] Total Protein 6.7 6.3 - 7.9 g/dL 07/31/2024 1:09 PM EDT [facility] Albumin, Plasma 4.2 3.5 - 5.2 g/dL 07/31/2024 1:09 PM EDT [facility] AST, Plasma 23 10 - 35 U/L 07/31/2024 1:09 PM EDT [facility] ALT, Plasma 16 10 - 35 U/L 07/31/2024 1:09 PM EDT [facility] Alkaline Phosphatase, Plasma 63 46 - 142 U/L 07/31/2024 1:09 PM EDT [facility] Total Bilirubin, Plasma 0.3 0.2 - 1.1 mg/dL 07/31/2024 1:09 PM EDT [facility] eGFRcr 72.3 mL/min/1.7 3m*2 07/31/2024 1:09 PM EDT [facility] Comment:Reported eGFRcr in m L/min/1.73m2 is based the CKD-EPI 2020 equation that does not use a race coefficient. Blood Venous blood specimen / Unknown Venipuncture / Unknown 07/31/2024 12:03 PM EDT 07/31/2024 12:39 PM EDT us Mark Zurita MD LAB BLOOD ORDERABLES Final Res ult Performing Organization Address City/[facility]/ZIP Co de Phone Number [facility] [address] [place] [address] * (ABNORMAL) Hepatitis C Antibody (04/03/2021 4:35 PM EST) Hepatitis C Antibody Positive( A) Negative 04/03/2021 8:34 PM EST [facility] Comment:This specimen is gee ng sent for confirmation by RT-PCR. Blood Venous blood specimen / Unknown Venipuncture / Unknown 04/03/2021 4:35 PM EST 04/03/2021 4:35 PM EST us [facility] LAB BLOOD ORDERABLES Final Resul t Performing Organization Address City/[facility] de Phone Number [facility] [address] [place] [address] from Last 3 Months or Most Recently Relevant to Health Maintenance Insurance [facility] MEDICARE Care Teams Discharge Door Operator Relationship Specialty Start Date End Date Cali Snyder APRN [address] [place], [place] [phone] PCP - General 01/09/24 Nico Moncada MD [address] [address] Referring Physician Cardiology 12/21/21 Elba Alves DO [address] [address] Resident 06/13/24
--- OUTSIDE RECORDS SUMMARY | 2024-10-16 10:11 | XMS_ITS | Clinical Summary ---
Author Organization [facility] [place] [facility] Address [address] [place] [address] Phone Care Team Providers Care Cavalry Scout Name Role Phone Unavailable Primary Care Provider [...]
--- OUTSIDE RECORDS SUMMARY | 2024-10-16 10:11 | XMS_ITS | Encounter Summary ---
Author Organization Healthcare Address [address] [place] [address] Care Team Providers Care Human Services Assistant Name Role Phone Nico Moncada MD Unavailable [phone] Cali Snyder APRN Primary Care Provider [phone] Elba Alves DO Unavailable [phone] Encounter Details Date Type Department Care Team (Late st Contact Info) Description 08/17/2024 Results Follow-Up [facility] Gyne[facility] [address] [facility] [address] [place] [address] Venancio Duran MD 800 [facility] [address] [place] [address] Social History Tobacco Use Types [...] EDT Office Visit [facility] [address] [facility] [address] [place] [phone] Mark Zurita MD [address] [facility] [address] [place] [address] 01/21/2025 12:50 PM EST Office Visit [place] [facility] [address], [address] [place] [address] Lisa Leon, ONLINE COMMUNICATIONS SPECIALIST [address] [place] [address] 09/30/2025 9:30 AM EDT Appointment [facility] Radiology [address] [place] [address] 09/30/2025 10:30 AM EDT Office Visit [facility] Head[facility]ck [facility] Respiratory [address] 2[address] [place] [phone] Candido Fitzgerald MD [address] [place] [address] documented as of this encounter Visit Diagnoses Not on filedocumented in this encounter Additional Health Concerns Assessment Noted Time A fall risk assessment has been complete d for the patient 07/02/2024 11:08 AM EDT A Body Mass Index follow-up plan has been documented for the patient 07/02/2024 11:57 AM EDT documented as of this encounter Care Teams Human Services Assistant Relationship Specialty Start Date End Date Cali Snyder APRN [address] [place] [address] PCP - General 01/09/24 Nico Moncada MD [address] [address] Referring Physician Cardiology 12/21/21 Elba Alves DO [facility] [address] [address] Resident 06/13/24 documented as of this encounter
--- OUTSIDE RECORDS SUMMARY | 2024-10-16 10:11 | XMS_ITS | Encounter Summary ---
Author Organization Healthcare Address [address] [place] [address] Care Team Providers Care After School Program Teacher Name Role Phone Nico Moncada MD Unavailable [phone] Cali Snyder APRN Primary Care Provider [phone] Elba Alves DO Unavailable [phone] Encounter Details Date Type Department Care [...] [address] [place] [address] Mark Zurita MD [address] [place] [address] 01/21/2025 12:50 PM EST Office Visit [place] [facility] [address], [address] [place] [address] Lisa Leon APRN [address] [place] [address] 09/30/2025 9:30 AM EDT Appointment [facility] [address] [place] [address] 09/30/2025 10:30 AM EDT Office Visit [facility] Respiratory [address] [place] [address] Candido Fitzgerald MD [address] [place] [address] documented as of this encounter Visit Diagnoses Not on filedocumented in this encounter Additional Health Concerns Assessment Noted Time A fall risk assessment has been complete d for the patient 08/29/2024 11:26 AM EDT A Body Mass Index follow-up plan has been documented for the patient 07/02/2024 11:57 AM EDT documented as of this encounter Care Teams After School Program Teacher Relationship Specialty Start Date End Date Clai Snyder APRN [address] [place] [address] PCP - General 01/09/24 Nico Moncada MD [address] [address] Referring Physician Cardiology 12/21/21 Elba Alves DO 1210 [facility] [address] [place] [address] Resident 06/13/24 documented as of this encounter
--- OUTSIDE RECORDS SUMMARY | 2024-10-16 10:11 | XMS_ITS | Encounter Summary ---
Author Organization Healthcare Address [address] [place] [address] Care Team Providers Care Marketing Communications Coordinator Name Role Phone Nico Moncada MD Unavailable [phone] Cali Snyder APRN Primary Care Provider [phone] Elba Alves DO Unavailable [phone] Encounter Details Date Type Department Care Team (Late st Contact Info) Description 08/17/2024 Refill [place] [facility] [address] [place] [address] Shauna Montemayor, PharmD Seropositive rheumatoid arthritis of multiple sites ([facility]) Social History Tobacco Use Types Packs/Day Years [...] Miscellaneous Notes * Progress Notes - Shauna oMntemayor, PharmD - 08/17/2024 8:12 AM EDT Refill request does not meet protocol. Sending to clinic for review. Additional info: Appointment compliance - Patient has not followed up in clinic as requested. Please review for scheduling and if refills are appropriate. Refill request received via fax documented in this encounter Plan of Treatment Upcoming Encounters Date Type Department Care Team ([facility] st Contact Info) Description 01/01/2025 9:40 AM EDT Office Visit [facility] Gynecology [address] [place] [phone] Mark Zurita MD [address] [place] [address] 01/21/2025 12:50 PM EST Office Visit [place] [facility] [address] [place] [address] Lisa Leon APRN [address] [place] [address] 09/30/2025 9:30 AM EDT Appointment [facility]iology [address] [place] [address] 09/30/2025 10:30 AM EDT Office Visit [facility] [address] [place] [phone] Candido Fitzgerald MD [address] [place] [address] documented as of this encounter Visit Diagnoses Diagnosis Seropositive rheumatoid arthritis of multiple sites (CMS/HCC) documented in this encounter Additional Health Concerns Assessment Noted Time A fall risk assessment has been complete d for the patient 07/02/2024 11:08 AM EDT A Body Mass Index follow-up plan has been documented for the patient 07/02/2024 11:57 AM EDT documented as of this encounter Care Teams Marketing Communications Coordinator Relationship Specialty Start Date End Date Cali Snyder APRN [address] [place] [address] PCP - General 01/09/24 Nico Moncada MD [facility] [place] [address] Referring Physician Cardiology 12/21/21 Elba Alves DO [facility] [place] [address] Resident 06/13/24 documented as of this encounter
--- OUTSIDE RECORDS SUMMARY | 2024-10-16 10:12 | XMS_ITS | Encounter Summary ---
Author Organization [facility] Address [address] [place] [address] Care Team Providers Care Retail Gift Card Merchandising Name Role Phone Nico Moncada MD Unavailable [phone] Cali Snyder APRN Primary Care Provider [phone] Elba Alves DO Unavailable [phone] Encounter Details Date Type Department Care Team (Late st Contact Info) Description 09/17/2024 Telephone [place] [facility] [address] [place] [address] [place] [address] Social History Tobacco Use Types Packs/Day Years [...] EDT Office Visit PAV [facility] Gynecology [address] [facility] [address] [place] [address] Mark Zurita MD 800 [facility] [address] [place] [address] 01/21/2025 12:50 PM EST Office Visit [place] [facility] [address] [place] [address] Lisa Leon, HOME ADVISOR [address] [place] [address] 09/30/2025 9:30 AM EDT Appointment PAV G Radiology [address] [place] [address] 09/30/2025 10:30 AM EDT Office Visit Pav CC Head, Neck & Respiratory [address] [facility], 2nd [place] [address] Candido Fitzgerald MD [address] [place] [address] documented as of this encounter Visit Diagnoses Not on filedocumented in this encounter Additional Health Concerns Assessment Noted Time A fall risk assessment has been complete d for the patient 09/17/2024 3:19 PM EDT A Body Mass Index follow-up plan has been documented for the patient 09/17/2024 3:40 PM EDT documented as of this encounter Care Teams Retail Gift Card Merchandising Relationship Specialty Start Date End Date Cali Snyder APRN [address] [place] [address] PCP - General 01/09/24 Nico Moncada MD [address] [place] [address] Referring Physician Cardiology 12/21/21 Elba Alves DO [address] [place] [address] Resident 06/13/24 documented as of this encounter
--- OUTSIDE RECORDS SUMMARY | 2024-10-16 10:12 | XMS_ITS | Encounter Summary ---
Author Organization Healthcare Address [address] [place] [address] Care Team Providers Care District Manager Major Accounts Sales Name Role Phone Nico Moncada MD Unavailable [phone] Cali Snyder APRN Primary Care Provider [phone] Elba Alves DO Unavailable [phone] Encounter Details Date Type Department Care [...] [address] [place] [address] Mark Zurita MD [address] [place] [address] 01/21/2025 12:50 PM EST Office Visit [place] [facility] Medicine [facility] [address] [place] [address] Lisa Leon, PUMPER GAUGER APPRENTICE [address] [place] [address] 09/30/2025 9:30 AM EDT Appointment PAV G Radiology [address] [place] [address] 09/30/2025 10:30 AM EDT Office Visit Pav CC Head, Neck & Respiratory [address] 2[address] [place] [address] Candido Fitzgerald MD [address] [place] [address] documented as of this encounter Visit Diagnoses Not on filedocumented in this encounter Additional Health Concerns Assessment Noted Time A fall risk assessment has been complete d for the patient 10/01/2024 10:28 AM EDT A Body Mass Index follow-up plan has been documented for the patient 10/05/2024 8:54 AM EDT documented as of this encounter Care Teams District Manager Major Accounts Sales Relationship Specialty Start Date End Date Cali Snyder, PUMPER GAUGER APPRENTICE [address] [place] [address] PCP - General 01/09/24 Nico Moncada MD [address] [place] [address] Referring Physician Cardiology 12/21/21 Elba Alves DO [address] [place] [address] Resident 06/13/24 documented as of this encounter
--- OUTSIDE RECORDS SUMMARY | 2024-10-16 10:12 | XMS_ITS | Encounter Summary ---
Author Organization Healthcare Address [address] [place] [address] Care Team Providers Care Customer Relations Coordinator Name Role Phone Nico Moncada MD Unavailable [phone] Cali Snyder APRN Primary Care Provider [phone] Elba Alves DO Unavailable [phone] Encounter Details Date Type Department Care [...] [address] [place] [address] Mark Zurita MD [address] [facility] [address] [place] [address] 01/21/2025 12:50 PM EST Office Visit [place] [facility] [address], 2[address] [place] [address] Lisa Leon, DAIRY DEPARTMENT MANAGER [address] [place] [address] 09/30/2025 9:30 AM EDT Appointment PAV G Radiology [address] [place] [address] 09/30/2025 10:30 AM EDT Office Visit Pav CC Head, Neck & Respiratory [address] 2[address] [place] [address] Candido Fitzgerald MD [address] [place] [address] documented as of this encounter Visit Diagnoses Not on filedocumented in this encounter Additional Health Concerns Assessment Noted Time A fall risk assessment has been complete d for the patient 09/17/2024 3:19 PM EDT A Body Mass Index follow-up plan has been documented for the patient 09/17/2024 3:40 PM EDT documented as of this encounter Care Teams Customer Relations Coordinator Relationship Specialty Start Date End Date Cali Snyder, DAIRY DEPARTMENT MANAGER [address] [place] [address] PCP - General 01/09/24 Nico Moncada MD [address] [place] [address] Referring Physician Cardiology 12/21/21 Elba Alves DO [address] [place], [place] [address], [place] [address] Resident 06/13/24 documented as of this encounter
--- OUTSIDE RECORDS SUMMARY | 2024-10-16 10:12 | XMS_ITS | Encounter Summary ---
Author Organization Healthcare Address [address] [place] [address] Care Team Providers Care Veterans' Counselor Name Role Phone Nico Moncada MD Unavailable [phone] Cali Snyder APRN Primary Care Provider [phone] Elba Alves DO Unavailable [phone] Encounter Details Date Type Department Care Team (Late st Contact Info) Description 09/19/2024 Results Follow-Up [place] [facility] Medicine Specialties [address], [address] [place] [address] Lisa Leon APRN [address] [place] [address] Social History Tobacco Use Types [...] [address] [place] [address] Mark Zurita MD [address] Tong[place]on [facility] [address] [place] [address] 01/21/2025 12:50 PM EST Office Visit [place] [facility] [address], [address] [place] [address] Lisa Leon APRN [address] [place] [address] 09/30/2025 9:30 AM EDT Appointment PAV G Radiology [address] [place] [address] 09/30/2025 10:30 AM EDT Office Visit Pav CC Head, Neck & Respiratory [address] [place] [address] Candido Fitzgerald MD [address] [place] [address] documented as of this encounter Visit Diagnoses Not on filedocumented in this encounter Additional Health Concerns Assessment Noted Time A fall risk assessment has been complete d for the patient 09/17/2024 3:19 PM EDT A Body Mass Index follow-up plan has been documented for the patient 09/17/2024 3:40 PM EDT documented as of this encounter Care Teams Veterans' Counselor Relationship Specialty Start Date End Date Cali Snyder APRN [address] [place] [address] PCP - General 01/09/24 Nico Moncada MD [address] [place] [facility] [address] [place] [address] Referring Physician Cardiology 12/21/21 Elba Alves DO [address]10 [place] [facility] [address] [place] [address] Resident 06/13/24 documented as of this encounter
--- OUTSIDE RECORDS SUMMARY | 2024-10-16 10:12 | XMS_ITS | Encounter Summary ---
Author Organization Healthcare Address [address] [place] [address] Care Team Providers Care Adult Literacy Instructor Name Role Phone Nico Moncada MD Unavailable [phone] Cali Snyder APRN Primary Care Provider [phone] Elba Alves DO Unavailable [phone] Encounter Details Date Type Department Care Team (Late st Contact Info) Description 09/17/2024 Refill [place] [facility] [address] [place] [address] Shauna Montemayor, PharmD Seropositive rheumatoid arthritis of multiple sites ([facility]) Social History Tobacco Use Types Packs/Day Years [...] [address] [place] [address] Mark Zurita MD [address] Madhuri [facility] [address] [place] [address] 01/21/2025 12:50 PM EST Office Visit [place] [facility] [address], [address] [place] [address] Lisa Leon, PROJECT CONTROLS SPECIALIST [address] [place] [address] 09/30/2025 9:30 AM EDT Appointment PAV G Radiology [address] [place] [address] 09/30/2025 10:30 AM EDT Office Visit Pav CC Head, Neck & Respiratory [address] [place] [address] Candido Fitzgerald MD [address] [place] [address] documented as of this encounter Visit Diagnoses Diagnosis Seropositive rheumatoid arthritis of multiple sites (CMS/HCC) documented in this encounter Additional Health Concerns Assessment Noted Time A fall risk assessment has been complete d for the patient 09/17/2024 3:19 PM EDT A Body Mass Index follow-up plan has been documented for the patient 09/17/2024 3:40 PM EDT documented as of this encounter Care Teams Adult Literacy Instructor Relationship Specialty Start Date End Date Cali Snyder APRN [address] [place] [address] PCP - General 01/09/24 Nico Moncada MD [address] [address] Referring Physician Cardiology 12/21/21 Elba Alves DO [facility] [address] [address] Resident 06/13/24 documented as of this encounter
--- OUTSIDE RECORDS SUMMARY | 2024-10-16 10:12 | XMS_ITS | Encounter Summary ---
Author Organization Healthcare Address [address] [place] [address] Care Team Providers Care Research Chemical Engineer Name Role Phone Nico Moncada MD Unavailable [phone] Cali Snyder APRN Primary Care Provider [phone] Elba Alves DO Unavailable [phone] Encounter Details Date Type Department Care Team (Late st Contact Info) Description 10/04/2024 Telephone [place] [facility] [address] [place] [address] Gloria Beavers, RN CH-VASCULAR & INTERVENTIONAL RADIOLOGY [...] Upcoming Encounters Date Type Department Care Team ([facility] st Contact Info) Description 01/01/2025 9:40 AM EDT Office Visit PAV WH Gynecology [address] [place] [address] Mark Zurita MD [address] Sigrid Madhuri [facility] [address] [place] [address] 01/21/2025 12:50 PM EST Office Visit [place] [facility] Medicine [facility] [address] [place] [address] Lisa Leon, JUANJOSE [address] [place] [address] 09/30/2025 9:30 AM EDT Appointment PAV G Radiology [address] [place] [address] 09/30/2025 10:30 AM EDT Office Visit Pav CC Head, Neck & Respiratory [address] 2[address] [place] [address] Candido Fitzgerald MD [address] [place] [address] documented as of this encounter Visit Diagnoses Not on filedocumented in this encounter Additional Health Concerns Assessment Noted Time A fall risk assessment has been complete d for the patient 10/01/2024 10:28 AM EDT A Body Mass Index follow-up plan has been documented for the patient 10/05/2024 8:54 AM EDT documented as of this encounter Care Teams Research Chemical Engineer Relationship Specialty Start Date End Date Cali Snyder, COMBINE MECHANIC [address] [place], [place] [address] PCP - General 01/09/24 Nico Moncada MD [address] [address] Referring Physician Cardiology 12/21/21 Elba Alves DO [address] [place] [id number] Resident 06/13/24 documented as of this encounter
[2024-10-16 10:15] LABS: Microscopic, Urine URINE MICROSCOPIC (MICROSCOPIC)
[2024-10-16 10:53] LABS: Hematocrit 40.4 % (37.0-47.0); Hemoglobin 12.9 g/dL (12.2-16.2); Immature Granulocytes % 0.4 %; Mean Corpuscular HGB Conc 31.9 g/dL (31.8-35.4); Mean Corpuscular Hemoglobin 28.2 pg (27.0-31.2); Mean Corpuscular Volume 88.2 fl (81-99); Nucleated Red Blood Cells % 0 %; Platelet Count 185 K/mm3 (142-424); Red Blood Count 4.58 M/mm3 (4.20-5.40); Red Cell Distribution Width-SD 44.4 fL; White Blood Count 6.8 K/mm3 (4.8-10.8)
--- OUTSIDE RECORDS SUMMARY | 2024-10-16 11:11 | XMS_ITS | CCD ---
Author Name Christin Thapa NP Address [address] [facility] [address] [place] [address] Phone Organization [facility] Phone Care Team Providers Care Hr Assistant Name Role Phone Christin Thapa NP Primary Care Provider Unavaila ble Unavailable Chronic Care Management Unavaila ble Summary Purpose DataExchange Insurance Providers Payer name Policy type / Coverage type Covered libertarian ID Effective Begin Date Effective End Date [facility] [id number] Unknown Unknown Family history Father Diagnosis Age [...] School Graduate 05/20 Employment Unknown Retired from [employer] 06/13/2024 Tobacco history Unknown Former User 06/13/[address]: 630388249 Never drinks alco hol 06/13/2024 Illegal/Recreational drug [...] Fill Instructions Lipitor 20 mg tablet RxNorm: 643021 Take 1 Tablet(s) Oral every day 07/31/19 25 026 Active Breo Ellipta 100 mcg-25 mcg/dose powder for inhalation RxNorm: 7432338 Inhale 1 Puff(s) Inhalation every day 07/31/19 25 025 Active Breo Ellipta 100 mcg-25 mcg/dose powder for inhalation RxNorm: 4413591 Inhale 1 Puff(s) Inhalation every day 06/14/19 25 025 Inactive Tofacitinib Citrate ER (Xeljanz XR) 11 MG tablet sustained-release 24 hour RxNorm: 1693539 Take 1 Tablet(s) Oral every day . 04/25/19 25 No Stop Date Active hydroxychloroquine (Plaquenil) 200 MG tablet RxNorm: 2624796 Take 1 Tablet(s) (200 mg) Oral every day . 01/09/20 24 No Stop Date Active oxybutynin XL (Ditropan-XL) 10 MG 24 hr tablet RxNorm: 968247 Take 1 Tablet(s) (10 mg) Oral every day . 10/18/19 24 No Stop Date Active estradiol (Estrace) 0.1 MG/GM vaginal cream RxNorm: 969893 USING FINGER TECHNIQUE DAILY FOR 2 WEEKS AND THEN TWICE WEEKLY VAGINALLY 10/17/19 24 No Stop Date Active lyomulnj-curohhigc-ko xamethasone (Maxitrol) 3.5-44387-0.1 ophthalmic suspension RxNorm: 598148 opht 09/05/19 24 025 Inactive predniSONE (Deltasone) 5 MG tablet RxNorm: 208316 Take 3 tablets for 5 days, then take 2 tablets for 5 days, then take 1 tablet for 5 days. 09/01/19 24 No Stop Date Active metoprolol tartrate (Lopressor) 25 MG tablet RxNorm: 270824 Take 0.5 tablets (12.5 mg) by mouth 2 (two) times a day. 03/05/20 21 No Stop Date Active albuterol 108 (90 Base) MCG/ACT inhaler RxNorm: 1232300 INHALE 2 PUFFS BY MOUTH EVERY 4 TO 6 HOURS NEEDED FOR SHORTNESS OF BREATH OR WHEEZING 10/03/19 21 No Stop Date Active atorvastatin (Lipitor) 20 MG tablet RxNorm: 021597 1 (one) time each day. 09/09/19 21 025 Inactive pramipexole (Mirapex) 0.125 MG tablet RxNorm: 596441 TAKE 1 TABLET BY MOUTH NIGHTLY FOR RESTLESS LEGS 07/08/19 21 No Stop Date Active alendronate (Fosamax) 70 MG tablet RxNorm: 188412 TAKE 1 TABLET BY MOUTH EVERY WEEK ON SAME DAY EACH WEEK 06/24/19 21 No Stop Date Active Medication Administered No Medication Administered data Procedures Procedure Codes Date Most recent systolic blood pressure 130 to 139 m m CPT-4: 3075F 06/13/2024 Most recent diastolic blood pressure < 80 mm hg CPT-4: 3078F 06/13/2024 MED LIST DOCD IN [facility] CPT-4: 1159F 06/13/2024 RVW MEDS BY RX/DR IN [facility] CPT-4: 1160F 2024 Functional Status Assessed CPT-4: 1170F 06/13 Screening for clinical depre ssion is negative, follow-up plan not required CPT-4: G8510 06/13/2024 Vital Signs Date Vital 06/13/2024 Blood Pressure 1: 138/70 Code: 8480-6 BMI: 20.1 Code: 15315-3 Heart Rate 1: 65 bpm Height: 5'3 Code: 8302-2 Respiratory Rate: 16 bpm SpO2: 98% Temperature: 36.4 (C) / 97.6 (F) Weight: 113 lbs 4 oz Code: 95713-0 Reason For Visit Reason For Visit Effective Dates Notes established patient visit 07/30/2024 new patient welcome visit 06/13/2024 Encounters Encounter Performer Location Location Address Codes Date () (EST PT) LOW COMPLEXITY TELEHEALTH VISIT Diagnosis: COPD (chronic obstructive pulmonary disease)[ICD10: J44.9] Diagnosis: Rheumatoid arthritis[ICD10: M06.9] Diagnosis: Hypertension[ICD10 : I10] [facility] [address] [facility] [place] [address] CPT-4: 43269 07/30/2024 ([id number]) Home or Residence Visit CUTTER MACHINE TENDER - Moderate Level, 60 mins Diagnosis: COPD (chronic obstructive pulmonary disease)[ICD10: J44.9] Diagnosis: Rheumatoid arthritis[ICD10: M06.9] Diagnosis: Hypertension[ICD10 : I10] Diagnosis: Encounter for general adult medical examination without abnormal findings[ICD10: Z00.00] [facility] [address] [facility] [place] [address] CPT-4: 18598 06/13/2024 Plan of Care Planned Activity Notes Codes Status Date Visit Plan: This is a phone call only. Patient is in the [facility] and consents to treatment via telephone. [...] Appointment: Christin Thapa WPtel: [address] [facility] [address] [id number] ETV 07/30/2024 Patient Education: Patient Medication Summary [...] has quit for many years now. Her Cardiology Coordinator gave her BREO to use but she [...] of care. 06/13/2024 Appointment: Christin Thapa WPtel: [facility] [address] [address] 06/13/2024 Patient Education: Patient Medication Summary Completed 06/13/2024 Instructions Comment Date . This is a phone call only. Patient is in the [facility] and consents to treatment via telephone. [...] has quit for many years now. Her Cardiology Coordinator gave her BREO to use but she [...]
--- OUTSIDE RECORDS SUMMARY | 2024-10-16 11:11 | XMS_ITS | CCD ---
Author Name Christin Thapa NP Address [address] [facility] [address] [place] [address] Phone Organization [facility] Phone Care Team Providers Care Redevelopment Specialist Name Role Phone Christin Thapa NP Primary Care Provider Unavaila ble Unavailable Chronic Care Management Unavaila ble Summary Purpose DataExchange Insurance Providers Payer name Policy type / Coverage type Covered republican ID Effective Begin Date Effective End Date [facility] [id number] Unknown Unknown Family history Father Diagnosis Age [...] School Graduate 05/20 Employment Unknown Retired from [employer] 06/13/2024 Tobacco history Unknown Former User 06/13/[address]: 974947301 Never drinks alco hol 06/13/2024 Illegal/Recreational drug [...] Fill Instructions Lipitor 20 mg tablet RxNorm: 664597 Take 1 Tablet(s) Oral every day 07/31/19 25 026 Active Breo Ellipta 100 mcg-25 mcg/dose powder for inhalation RxNorm: 9144552 Inhale 1 Puff(s) Inhalation every day 07/31/19 25 025 Active Breo Ellipta 100 mcg-25 mcg/dose powder for inhalation RxNorm: 6279520 Inhale 1 Puff(s) Inhalation every day 06/14/19 25 025 Inactive Tofacitinib Citrate ER (Xeljanz XR) 11 MG tablet sustained-release 24 hour RxNorm: 6186215 Take 1 Tablet(s) Oral every day . 04/25/19 25 No Stop Date Active hydroxychloroquine (Plaquenil) 200 MG tablet RxNorm: 0155423 Take 1 Tablet(s) (200 mg) Oral every day . 01/09/20 24 No Stop Date Active oxybutynin XL (Ditropan-XL) 10 MG 24 hr tablet RxNorm: 366154 Take 1 Tablet(s) (10 mg) Oral every day . 10/18/19 24 No Stop Date Active estradiol (Estrace) 0.1 MG/GM vaginal cream RxNorm: 343712 USING FINGER TECHNIQUE DAILY FOR 2 WEEKS AND THEN TWICE WEEKLY VAGINALLY 10/17/19 24 No Stop Date Active miqsvmnn-cyjbxzavf-gh xamethasone (Maxitrol) 3.5-62722-4.1 ophthalmic suspension RxNorm: 707905 opht 09/05/19 24 025 Inactive predniSONE (Deltasone) 5 MG tablet RxNorm: 152055 Take 3 tablets for 5 days, then take 2 tablets for 5 days, then take 1 tablet for 5 days. 09/01/19 24 No Stop Date Active metoprolol tartrate (Lopressor) 25 MG tablet RxNorm: 373005 Take 0.5 tablets (12.5 mg) by mouth 2 (two) times a day. 03/05/20 21 No Stop Date Active albuterol 108 (90 Base) MCG/ACT inhaler RxNorm: 5804099 INHALE 2 PUFFS BY MOUTH EVERY 4 TO 6 HOURS NEEDED FOR SHORTNESS OF BREATH OR WHEEZING 10/03/19 21 No Stop Date Active atorvastatin (Lipitor) 20 MG tablet RxNorm: 172937 1 (one) time each day. 09/09/19 21 025 Inactive pramipexole (Mirapex) 0.125 MG tablet RxNorm: 750216 TAKE 1 TABLET BY MOUTH NIGHTLY FOR RESTLESS LEGS 07/08/19 21 No Stop Date Active alendronate (Fosamax) 70 MG tablet RxNorm: 628387 TAKE 1 TABLET BY MOUTH EVERY WEEK ON SAME DAY EACH WEEK 06/24/19 21 No Stop Date Active Medication Administered No Medication Administered data Procedures Procedure Codes Date Most recent systolic blood pressure 130 to 139 m m CPT-4: 3075F 06/13/2024 Most recent diastolic blood pressure < 80 mm hg CPT-4: 3078F 06/13/2024 MED LIST DOCD IN [facility] CPT-4: 1159F 06/13/2024 RVW MEDS BY RX/DR IN [facility] CPT-4: 1160F 2024 Functional Status Assessed CPT-4: 1170F 06/13 Screening for clinical depre ssion is negative, follow-up plan not required CPT-4: G8510 06/13/2024 Vital Signs Date Vital 06/13/2024 Blood Pressure 1: 138/70 Code: 8480-6 BMI: 20.1 Code: 56475-1 Heart Rate 1: 65 bpm Height: 5'3 Code: 8302-2 Respiratory Rate: 16 bpm SpO2: 98% Temperature: 36.4 (C) / 97.6 (F) Weight: 113 lbs 4 oz Code: 36042-8 Reason For Visit Reason For Visit Effective Dates Notes established patient visit 07/30/2024 new patient welcome visit 06/13/2024 Encounters Encounter Performer Location Location Address Codes Date () (EST PT) LOW COMPLEXITY TELEHEALTH VISIT Diagnosis: COPD (chronic obstructive pulmonary disease)[ICD10: J44.9] Diagnosis: Rheumatoid arthritis[ICD10: M06.9] Diagnosis: Hypertension[ICD10 : I10] [facility] [address] [facility] [place] [address] CPT-4: 22225 07/30/2024 ([id number]) Home or Residence Visit FIRM ADMINISTRATOR - Moderate Level, 60 mins Diagnosis: COPD (chronic obstructive pulmonary disease)[ICD10: J44.9] Diagnosis: Rheumatoid arthritis[ICD10: M06.9] Diagnosis: Hypertension[ICD10 : I10] Diagnosis: Encounter for general adult medical examination without abnormal findings[ICD10: Z00.00] [facility] [address] [facility] [place] [address] CPT-4: 04036 06/13/2024 Plan of Care Planned Activity Notes Codes Status Date Visit Plan: This is a phone call only. Patient is in the [facility] and consents to treatment via [...] Appointment: Christin Thapa WPtel: [address] [facility] [address] [id number] ETV 07/30/2024 Patient Education: Patient Medication Summary [...] has quit for many years now. Her Senior Formulation Scientist gave her BREO to use but she [...] of care. 06/13/2024 Appointment: Christin Thapa WPtel: [facility] [address] [address] 06/13/2024 Patient Education: Patient Medication Summary Completed 06/13/2024 Instructions Comment Date . This is a phone call only. Patient is in the [facility] and consents to treatment via [...] has quit for many years now. Her Senior Formulation Scientist gave her BREO to use but she [...]
[2024-10-16 11:29] LABS: Free T4 (Free Thyroxine) 1.25 ng/dl (0.78-2.19)
[2024-10-16 11:38] LABS: Color,Urine Yellow (Yellow); PH,Urine 6.0 (5.0-8.5); Specific Gravity, Urine 1.015 (1.005-1.030)
[2024-10-16 11:39] LABS: Bacteria,Urine Trace /lpf; Bilirubin,Urine Negative (Negative); Glucose,Urine (UA) Negative (Negative); Ketones,Urine Negative (Negative); Leukocyte Esterase,Urine Negative (Negative); Protein,Urine Negative (Negative); RBC,Urine Occasional #/hpf (0-3); Squamous Epithelial Cell,Urine Occasional #/hpf (0-5); Urobilinogen,Urine 0.2 EU/dl (0.2)
[2024-10-16 11:56] LABS: Anion Gap 10.1 mEq/L (5-15); Carbon Dioxide 27 mmol/L (22.0-30.0); Chloride 103 mmol/L (98-107); Potassium 4.1 mmoL/L (3.5-5.1); Sodium 136 mmol/L (136-145)
[2024-10-16 11:57] LABS: Aspartate Amino Transferase 33 U/L (14-36); Bilirubin,Direct 0.1 mg/dl (0.0-0.4); Bilirubin,Indirect 0.3 mg/dL (0.0-0.9); Bilirubin,Total 0.4 mg/dl (0.2-1.3); Bilirubin,Unconjugated 0.3 mg/dL (0.0-1.1); Blood Urea Nitrogen 10 mg/dl (7-17); Calcium 9.7 mg/dl (8.4-10.2); Creatinine,Serum 0.90 mg/dl (0.52-1.04); Estimated Glomerular Filt Rate 62 ml/min (>60); GFR (African American) 74 ML/MIN (>60); Glucose 95 mg/dl (74-100); Magnesium 1.8 mg/dl (1.6-2.3)
[2024-10-16 11:58] LABS: Albumin Level 4.3 g/dl (3.5-5.0); Alkaline Phosphatase 68 U/L (38-126); Cholesterol 142 mg/dl (140-200); HDL Cholesterol 78 mg/dl (40-60); Total Protein,Serum 6.5 g/dl (6.3-8.2); Triglycerides 65 mg/dl (30-150)
[2024-10-16 11:59] LABS: Thyroid Stimulating Hormone < 0.02 uIU/mL (0.465-4.68)
[2024-10-16 12:24] LABS: Alanine Aminotransferase 18 U/L (12-78)
== END 2024-10-16 23:59 | disposition home or self-care (01) ==
LOC: LAB 10:06
PROVIDERS: Urology; PCP Family Medicine; Visit Provider Physician Assistant
DX: I25.10 Atherosclerotic heart disease of native coronary artery without angina pectoris (principal); K55.1 Chronic vascular disorders of intestine; I48.0 Paroxysmal atrial fibrillation; I10 Essential (primary) hypertension; I77.4 Celiac artery compression syndrome; E78.2 Mixed hyperlipidemia; N39.0 Urinary tract infection, site not specified; Z95.1 Presence of aortocoronary bypass graft
CPT/HCPCS: 36415; 80048; 80061; 80076; 81001; 83735; 84439; 84443; 85025

== ENCOUNTER 2024-10-30 09:55 | Outpatient (CLI) | payer MEDICARE, SELFPAY ==
--- OUTSIDE RECORDS SUMMARY | 2020-01-26 06:00 | XMS_ITS | Encounter Summary ---
Author Organization [place] [address] Care Team Providers Care Business Solutions Consultant Name Role Phone Unavailable Primary Care Provider Unavailabl e Encounter Details Date Type Department Care Team (Late st Contact Info) Description 01/26/2020 5:00 AM EST Hospital Encounter [facility] Referral Lab [address] [phone] Haroon Cain MD [address] [place] [address] Social History Tobacco Use Types Packs/Day Years [...]
--- OUTSIDE RECORDS SUMMARY | 2024-09-17 15:20 | XMS_ITS | Encounter Summary ---
Author Organization Healthcare Address [address] [place] [address] Care Team Providers Care Banking Teacher Name Role Phone Nico Moncada MD Unavailable [phone] Cali Snyder APRN Primary Care Provider [phone] Elba Alves DO Unavailable [phone] Reason for Visit * Reason Comments Follow-up Encounter Details Date Type Department Care Team (Latest Contact Info) Description 09/17/2024 3:20 PM EDT Office Visit [facility] [address] [place] [address] Lisa Fowler APRN [address] [place] [address] Seropositive rheumatoid arthritis of multiple [...] of Seropositive rheumatoid arthritis of multiple sites ([facility]) [M05.79] Subjective HPI Jacque Worley is a [...] with rheumatology Dr. Oliver and changes to [facility] rheumatology due to insurance coverage. Med Hx: [...] Diagnosis Date COPD (chronic obstructive pulmonary disease) ([facility]) COVID-19 11/13/2021 Heart disease Hepatitis C Personal history of other diseases of the digestive system History of gallstones Personal history of other diseases of the musculoskeletal system and connective tissue History of osteoporosis Rheumatoid arthritis ([facility]) Skin cancer UTI (urinary tract infection) UTI (urinary tract infection) Past Surgical History: Procedure Laterality Date CARDIAC CATHETERIZATION N/A CATARACT EXTRACTION N/A CORONARY ARTERY BYPASS GRAFT N/A 12/25/2019 CABG x 1 - AGUILAR to LAD (Dr Jose Delgado) LEG SURGERY N/A STERNAL WIRES REMOVAL 12/09/2021 Dr Jose Delgado - [facility] TUBAL LIGATION N/A VULVA SURGERY Right [...] Status: Two children Employed [employer] Financial Resource Strain: Not on file Food [...] Multiple Vitamin (MULTIVITAMINS PO) Take by mouth. emmnvieo-rnhixrlvu-duccjowvtcqrp (Maxitrol) 3.5-40763-5.1 ophthalmic suspension nystatin (Mycostatin) 624214 UNIT/ML suspension ondansetron (Zofran) 4 MG tablet [...] Case Report 08/09/2024 Final Value:Surgical Pathology Case: [id number] Authorizing Provider: Venancio Duran MD Collected: 08/09/2024 6650 Ordering Location: [facility] OPERATING ROOM Received: 08/09/2024 1630 Pathologist: [...] Posterior tip Cold Time: 32m DANIELLE Hassan ([facility]) Note: 08/09/2024 Final Value:A resident [...] today 2. High risk medication use 3. watermelon inspector use of immunosuppressant medication She has appt [...] Gynecology [address] [place] [address] Mark Zurita MD [address] [facility] [address] [place] [address] 01/21/2025 12:50 PM EST Office Visit [facility] [address] [place] [address] Lisa Fowler APRN [address] [place] [address] 04/01/2025 9:00 AM EST Appointment [facility] Radiology [address] [place] [address] 04/01/2025 10:00 AM EST Office Visit [facility] [address] [place] [address] Candido Fitzgerald MD [address] [place] [address] documented as of this encounter Results * [...] heads with MCP joint space narrowing. Diffuse xuan-db-qwgjwjvo interphalangeal joint space narrowing. Carpal rows are intact. No soft tissue swelling. Left hand/wrist: No acute fracture. Similar radial subluxation of the thumb MCP joint. Similar erosive changes of the thumb metacarpal head. Diffuse eszx-nu-medhncyo interphalangeal joint space narrowing. Carpal rows are [...] metacarpal heads with MCP jointspace narrowing. Diffuse loao-js-whydjgmx interphalangeal joint spacenarrowing. Carpal rows are intact. No soft tissue swelling. Left hand/wrist: No acute fracture. Similar radial subluxation of thethumb MCP joint. Similar erosive changes of the thumb metacarpal head.Diffuse unjb-pb-tzcsnatb interphalangeal joint space narrowing. Carpalrows are intact. [...] MD on 09/17/2024 4:31 PM Lisa Fowler SANITARY ENGINEERING TEACHER IMG XR PROCEDURES Final R esult * [...] heads with MCP joint space narrowing. Diffuse xpol-tl-craviylq interphalangeal joint space narrowing. Carpal rows are intact. No soft tissue swelling. Left hand/wrist: No acute fracture. Similar radial subluxation of the thumb MCP joint. Similar erosive changes of the thumb metacarpal head. Diffuse lnqe-rr-xvsdhbrx interphalangeal joint space narrowing. Carpal rows are [...] metacarpal heads with MCP jointspace narrowing. Diffuse qfkm-fn-tpbiqgpk interphalangeal joint spacenarrowing. Carpal rows are intact. No soft tissue swelling. Left hand/wrist: No acute fracture. Similar radial subluxation of thethumb MCP joint. Similar erosive changes of the thumb metacarpal head.Diffuse mhop-jo-rozrlxag interphalangeal joint space narrowing. Carpalrows are intact. [...] MD on 09/17/2024 4:31 PM Lisa Fowler SANITARY ENGINEERING TEACHER IMG XR PROCEDURES Final R esult * [...] heads with MCP joint space narrowing. Diffuse kecc-ga-pmzgpuos interphalangeal joint space narrowing. Carpal rows are intact. No soft tissue swelling. Left hand/wrist: No acute fracture. Similar radial subluxation of the thumb MCP joint. Similar erosive changes of the thumb metacarpal head. Diffuse rjlh-xa-walwkomb interphalangeal joint space narrowing. Carpal rows are [...] metacarpal heads with MCP jointspace narrowing. Diffuse chio-zg-tboezdtm interphalangeal joint spacenarrowing. Carpal rows are intact. No soft tissue swelling. Left hand/wrist: No acute fracture. Similar radial subluxation of thethumb MCP joint. Similar erosive changes of the thumb metacarpal head.Diffuse smlx-oa-jgtgdyjx interphalangeal joint space narrowing. Carpalrows are intact. [...] documented as of this encounter Care Teams Banking Teacher Relationship Specialty Start Date End Date Cali Snyder APRN [address] [place] [address] PCP - General 01/09/24 Nico Moncada MD [address] [place] [address] Referring Physician Cardiology 12/21/21 Elba Alves DO [address] [address] Resident 06/13/24 documented as of this encounter
--- OUTSIDE RECORDS SUMMARY | 2024-09-17 15:51 | XMS_ITS | Encounter Summary ---
Author Organization Healthcare Address [address] [place] [address] Care Team Providers Care Production Sound Mixer Name Role Phone Ncio Moncada MD Unavailable [phone] Cali Snyder APRN Primary Care Provider [phone] Elba Alves DO Unavailable [phone] Encounter Details Date Type Department Care Team (Latest Contact Info) Description 09/17/2024 3:51 PM EDT - 09/17/2024 11:59 PM EDT Hospital Encounter [facility] [address] [place] [address] Seropositive rheumatoid arthritis of multiple [...] PO) Take by mouth. neomycin-polymyx in-dexamethasone (Maxitrol) 3.5-44766-6.1 ophthalmic suspension 09/05/2023 nystatin (Mycostatin) [id number] UNIT/ML suspension 09/13/2024 ondansetron (Zofran) 4 MG [...] [facility] [address] [place] [address] Mark Zurita MD [address] [facility] [address] [place] [address] 01/21/2025 12:50 PM EST Office Visit [place] [facility] [address] [place] [address] Lisa Leon, JUANJOSE [address] [place] [address] 04/01/2025 9:00 AM EST Appointment [facility] [address] [place] [address] 04/01/2025 10:00 AM EST Office Visit [facility] [address] [place] [address] Caniddo Fitzgerald MD [address] [place] [address] documented as of this encounter Procedures Procedure Name Priority Date/Time Associated Diagnosis Comments XR HAND WRIST BILATERAL 2 VIEWS Routine 09/17/2024 4:08 PM EDT Seropositive rheumatoid arthritis of multiple sites ([facility]) High risk medication use Long-term use of immunosuppressant medication XR FOOT RIGHT 3+ VIEWS Routine 09/17/2024 4:08 PM EDT Seropositive rheumatoid arthritis of multiple sites ([facility]) High risk medication use Long-term use of immunosuppressant medication XR FOOT LEFT 3+ VIEWS Routine 09/17/2024 4:08 PM EDT Seropositive rheumatoid arthritis of multiple sites ([facility]) High risk medication use Long-term use of [...] heads with MCP joint space narrowing. Diffuse ojfo-vu-itmhlbjr interphalangeal joint space narrowing. Carpal rows are intact. No soft tissue swelling. Left hand/wrist: No acute fracture. Similar radial subluxation of the thumb MCP joint. Similar erosive changes of the thumb metacarpal head. Diffuse ozwu-br-gdnpjhel interphalangeal joint space narrowing. Carpal rows are [...] metacarpal heads with MCP jointspace narrowing. Diffuse wxdk-yf-tkhgvwzt interphalangeal joint spacenarrowing. Carpal rows are intact. No soft tissue swelling. Left hand/wrist: No acute fracture. Similar radial subluxation of thethumb MCP joint. Similar erosive changes of the thumb metacarpal head.Diffuse kchw-ek-dzvvdbsy interphalangeal joint space narrowing. Carpalrows are intact. [...] MD on 09/17/2024 4:31 PM Lisa Leon [employer] IMG XR PROCEDURES Final R esult * [...] heads with MCP joint space narrowing. Diffuse lfef-cq-vcdahayo interphalangeal joint space narrowing. Carpal rows are intact. No soft tissue swelling. Left hand/wrist: No acute fracture. Similar radial subluxation of the thumb MCP joint. Similar erosive changes of the thumb metacarpal head. Diffuse nhnc-dh-canbzptc interphalangeal joint space narrowing. Carpal rows are [...] metacarpal heads with MCP jointspace narrowing. Diffuse ccmw-kx-gfspvbre interphalangeal joint spacenarrowing. Carpal rows are intact. No soft tissue swelling. Left hand/wrist: No acute fracture. Similar radial subluxation of thethumb MCP joint. Similar erosive changes of the thumb metacarpal head.Diffuse sfvl-ne-snzywfpq interphalangeal joint space narrowing. Carpalrows are intact. [...] MD on 09/17/2024 4:31 PM Lisa Leon [employer] SAL[employer] ADVISOR IMG XR PROCEDURES Final R esult * [...] heads with MCP joint space narrowing. Diffuse eygp-qh-nttdiylo interphalangeal joint space narrowing. Carpal rows are intact. No soft tissue swelling. Left hand/wrist: No acute fracture. Similar radial subluxation of the thumb MCP joint. Similar erosive changes of the thumb metacarpal head. Diffuse dyke-xx-mzlfnaiw interphalangeal joint space narrowing. Carpal rows are [...] metacarpal heads with MCP jointspace narrowing. Diffuse esse-rd-ardpmabo interphalangeal joint spacenarrowing. Carpal rows are intact. No soft tissue swelling. Left hand/wrist: No acute fracture. Similar radial subluxation of thethumb MCP joint. Similar erosive changes of the thumb metacarpal head.Diffuse fyeg-yv-wasgwvhd interphalangeal joint space narrowing. Carpalrows are intact. [...] Diagnosis Seropositive rheumatoid arthritis of multiple sites ([facility]) High risk medication use Long-term use of immunosuppressant medication documented in this encounter Additional Health Concerns Assessment Noted Time A fall risk assessment has been complete d for the patient 09/17/2024 3:19 PM EDT A Body Mass Index follow-up plan has been documented for the patient 09/17/2024 3:40 PM EDT documented as of this encounter Care Teams Production Sound Mixer Relationship Specialty Start Date End Date Cali Snyder APRN [address] [place], [place] [phone] PCP - General 01/09/24 Nico Moncada MD [address] [address] Referring Physician Cardiology 12/21/21 Elba Alves DO [address] [place] [facility] [address] [place] [address] Resident 06/13/24 documented as of this encounter
--- OUTSIDE RECORDS SUMMARY | 2024-10-01 09:20 | XMS_ITS | Encounter Summary ---
Author Organization Healthcare Address [address] [place] [address] Care Team Providers Care Doll Maker Name Role Phone Nioc Moncada MD Unavailable [phone] Cali Snyder APRN Primary Care Provider [phone] Elba Alves DO Unavailable [phone] Reason for Referral * Imaging (Routine) - Closed Specialty Diagnoses / Procedures Referred By Norma webb Referred To Contact Radiology Diagnoses Lung nodule Procedures CT Chest wo IV Contrast Candido Fitzgerald MD [address] [address] Phone: tel: fax: Referral ID Status Reason Start Date Expiration Date Visits Re quested Visits Authorized [id number] Closed 07/02/2024 01/01/2026 1 1 Reason for Visit * Imaging (Routine) - Closed Specialty Diagnoses / Procedures Referred By Norma webb Referred To Contact Radiology Diagnoses Lung nodule Procedures CT Chest wo IV Contrast Candido Fitzgerald MD [address] [address] Phone: tel: fax: Referral ID Status Reason Start Date Expiration Date Visits Re quested Visits Authorized [id number] Closed 07/02/2024 01/01/2026 1 1 Encounter Details Date Type Department Care Team (Latest Contact Info) Description 10/01/2024 9:20 AM EDT - 10/01/2024 11:59 PM EDT Hospital Encounter [facility] [address] [place] [address] Lung nodule Discharge Disposition: Home or Self Care Social [...] on file documented as of this encounter Medications at [...] PO) Take by mouth. neomycin-polymyx in-dexamethasone (Maxitrol) 3.5-31714-5.1 ophthalmic suspension 09/05/2023 nystatin (Mycostatin) [id number] UNIT/ML suspension 09/13/2024 ondansetron (Zofran) 4 MG [...] [facility] [address] [place] [address] Mark Zurita MD [address] [place] [address] 01/21/2025 12:50 PM EST Office Visit [facility] [address] [place] [address] Lisa Leon, ORE MIXER [address] [place] [address] 04/01/2025 9:00 AM EST Appointment [facility] [address] [place] [address] 04/01/2025 10:00 AM EST Office Visit [facility] [address] [place] [address] Candido Fitzgerald MD [address] [place] [address] documented as of this encounter Procedures Procedure Name Priority Date/Time Associated Diagnosis Comments CT CHEST WO IV CONTRAST Routine 10/01/2024 10:00 AM EDT Lung nodule documented in this encounter Results * CT Chest wo IV Contrast (10/01/2024 10:00 AM EDT) Anatomical Region Laterality Modality Chest Computed Tomogra phy Impressions 10/01/2024 11:29 AM EDT Stable small nonspecific lingular nodule. No new worrisome lesions in interval. CRITICAL RESULT: No. COMMUNICATION: Per this written report. Drafted by Jennyfer Mitchell MD on 10/01/2024 11:27 AM Final report signed by Jennyfer Mitchell MD on 10/01/2024 11:29 AM Narrative 10/01/2024 11:29 AM EDT CLINICAL INDICATION: Lung nodule, 6-8mm TECHNIQUE: Multiple CT helical images were obtained from thoracic inlet through upper abdomen without administration of IV contrast. The imaging protocol used in this examination was optimized to achieve diagnostic quality with the lowest possible radiation dose in accordance with the principles of ALARA (As Low As Reasonably Achievable). COMPARISON: July 02, 2024 FINDINGS: Mediastinum and Pleura: No mediastinal or hilar adenopathy. No pleural or pericardial effusion. Three-vessel coronary artery calcifications. Lungs: Advanced smoking induced emphysema. Bilateral apical pleuroparenchymal scarring. Stable 6 mm lingular nodule, image 37 of series 3. Calcified granuloma within left upper lobe, present before. No new suspicious nodules. No acute airspace disease. Upper Abdomen: No suspicious lesions in the partially visualized upper abdomen. Musculoskeletal: No suspicious lytic or sclerotic lesion. Procedure Note Jennyfer Mitchell MD - 10/01/2024 CLINICAL INDICATION: Lung nodule, 6-8mm TECHNIQUE: Multiple CT helical images were obtained from thoracic inlet through upperabdomen without administration of IV contrast. The imaging protocol used in this examination was optimized to achievediagnostic quality with the lowest possible radiation dose in accordancewith the principles of ALARA (As Low As Reasonably Achievable). COMPARISON: July 02, 2024 FINDINGS: Mediastinum and Pleura: No mediastinal or hilar adenopathy. No pleural orpericardial effusion. Three-vessel coronary artery calcifications. Lungs: Advanced smoking induced emphysema. Bilateral apicalpleuroparenchymal scarring. Stable 6 mm lingular nodule, image 37 ofseries 3. Calcified granuloma within left upper lobe, present before. Nonew suspicious nodules. No acute airspace disease. Upper Abdomen: No suspicious lesions in the partially visualized upperabdomen. Musculoskeletal: No suspicious lytic or sclerotic lesion. IMPRESSION: Stable small nonspecific lingular nodule. No new worrisome lesions ininterval. CRITICAL RESULT: No. COMMUNICATION: Per this written report. Drafted by Jennyfer Mitchell MD on 10/01/2024 11:27 AM Final report signed by Jennyfer Mitchell MD on 10/01/2024 11:29 AM Candido Fitzgerald MD IMG CT PROCEDURES Final Resu lt documented in this encounter Visit Diagnoses Diagnosis Lung nodule Other diseases of lung, not elsewhere classified documented in this encounter Additional Health Concerns Assessment Noted Time A fall risk assessment has been complete d for the patient 10/01/2024 10:28 AM EDT A Body Mass Index follow-up plan has been documented for the patient 10/05/2024 8:54 AM EDT documented as of this encounter Care Teams Doll Maker Relationship Specialty Start Date End Date Cali Snyder APRN [address] [place] [address] PCP - General 01/09/24 Nico Moncada MD [facility] [address] [address] Referring Physician Cardiology 12/21/21 Elba Alves DO [address] [place] [address] Resident 06/13/24 documented as of this encounter
--- OUTSIDE RECORDS SUMMARY | 2024-10-01 10:15 | XMS_ITS | Encounter Summary ---
Author Organization Healthcare Address [address] [place] [address] Care Team Providers Care Surgical Coder Name Role Phone Nico Moncada MD Unavailable [phone] Cali Snyder APRN Primary Care Provider [phone] Elba Alves DO Unavailable [phone] Reason for Referral * Imaging (Routine) - Pending Review Specialty Diagnoses / Procedures Referred By Norma webb Referred To Contact Radiology Diagnoses Lung nodule Procedures CT Chest wo IV Contrast Candido Fitzgerald MD [address] [address] Phone: tel: fax: Referral ID Status Reason Start Date Expiration Date V isits Requested Visits Authorized [id number] Pending Review 10/01/2024 04/02/2026 1 1 Reason for Visit * Reason Comments Follow-up Encounter Details Date Type Department Care Team ([facility] Contact Info) Description 10/01/2024 10:15 AM EDT Office Visit [facility] Head[facility] Neck [facility] Respiratory [address] [place] [address] Candido Fitzgerald MD [address] [address] Lung nodule Social History Tobacco [...] from the original note were not included. [facility] Department of Surgery Section of Thoracic [...] Upcoming Encounters Date Type Department Care Team ([facility] st Contact Info) Description 01/01/2025 9:40 AM EDT Office Visit [facility] Gynecology 800 [facility] [address] [place] [address] Mark Zurita MD 800 [facility] [address] Madhuri [facility] [address] [place] [address] 01/21/2025 12:50 PM EST Office Visit [place] [facility] [address] [place] [address] Lisa Leon, SAUSAGE STRINGER [address] [place] [address] 04/01/2025 9:00 AM EST Appointment P[facility] G Radiology [address] [place] [address] 04/01/2025 10:00 AM EST Office Visit [facility]ck [facility] Respiratory [address] [facility], 2[address] [place] [address] Candido Fitzgerald MD [address] [place] [address] Scheduled Orders Name Type Priority Associated Diagnoses [...] documented as of this encounter Care Teams Surgical Coder Relationship Specialty Start Date End Date Cali Snyder, JUANJOSE [address] [place] [address] PCP - General 01/09/24 Nico Moncada MD [address] [address] Referring Physician Cardiology 12/21/21 Elba Alves DO [address] [address] Resident 06/13/24 documented as of this encounter
--- OUTSIDE RECORDS SUMMARY | 2024-10-30 10:13 | XMS_ITS | Encounter Summary ---
Author Organization Healthcare Address [address] [place] [address] Care Team Providers Care Manager Inventory Management Name Role Phone Nico Moncada MD Unavailable [phone] Cali Snyder APRN Primary Care Provider [phone] Elba Alves DO Unavailable [phone] Encounter Details Date Type Department Care Team (Late st Contact Info) Description 09/17/2024 Refill [facility] [address], [address] [place] [address] Shauna Montemayor, PharmD Seropositive rheumatoid arthritis of multiple sites ([facility]) Social History Tobacco Use Types Packs/Day Years [...] [address] [place] [address] Mark Zurita MD [address] [facility] [address] [place] [address] 01/21/2025 12:50 PM EST Office Visit [place] [facility] [address], [address] [place] [address] Lisa Leon, DAIRY FARMER [address] [place] [address] 04/01/2025 9:00 AM EST Appointment [facility] Radiology [address] [place] [address] 04/01/2025 10:00 AM EST Office Visit [facility] Head[facility] Ne[facility] Respiratory [address] [place] [address] Candido Fitzgerald MD [address] [place] [address] documented as of this encounter Visit Diagnoses Diagnosis Seropositive rheumatoid arthritis of multiple sites (CMS/HCC) documented in this encounter Additional Health Concerns Assessment Noted Time A fall risk assessment has been complete d for the patient 09/17/2024 3:19 PM EDT A Body Mass Index follow-up plan has been documented for the patient 09/17/2024 3:40 PM EDT documented as of this encounter Care Teams Manager Inventory Management Relationship Specialty Start Date End Date Cali Snyder APRN [address] [place] [address] PCP - General 01/09/24 Nico Moncada MD [address] [address] Referring Physician Cardiology 12/21/21 Elba Alves DO [address] [address] Resident 06/13/24 documented as of this encounter
--- OUTSIDE RECORDS SUMMARY | 2024-10-30 10:13 | XMS_ITS | Encounter Summary ---
Author Organization Healthcare Address [address] [place] [address] Care Team Providers Care Authors Motivational Name Role Phone Nico Moncada MD Unavailable [phone] Cali Snyder APRN Primary Care Provider [phone] Elba Alves DO Unavailable [phone] Encounter Details Date Type Department Care Team (Late st Contact Info) Description 10/16/2024 Telephone [facility]ck [facility] Respiratory 800 [facility], 2nd [place] [address] Nakia Junior, RN AMB-HEAD NECK [facility]IRATORY CLINIC Social History Tobacco Use Types Packs/Day Years [...] encounter Miscellaneous Notes * Telephone Encounter - Nakia Junior RN - 10/16/2024 12:43 PM EDT RN LVM informing of appt change. Pt was accidentally scheduled for 1 yr instead of 6mo. RN informedof new date/times of appts and mailing out reminders. documented in this encounter Plan of Treatment Upcoming Encounters Date Type Department Care Team ([facility] st Contact Info) Description 01/01/2025 9:40 AM EDT Office Visit [facility] Gynecology [address] [place] [address] Mark Zurita MD [address] [facility] [address] [place] [address] 01/21/2025 12:50 PM EST Office Visit [place] [facility] [address], [address] [place] [address] Lisa Leon, SANITARY AIDE [address] [place] [address] 04/01/2025 9:00 AM EST Appointment [facility] Radiology [address] [place] [address] 04/01/2025 10:00 AM EST Office Visit [facility] Ne[facility] Res[facility] [address] [place] [address] Candido Fitzgerald MD [address] [place] [address] documented as of this encounter Visit Diagnoses Not on filedocumented in this encounter Additional Health Concerns Assessment Noted Time A fall risk assessment has been complete d for the patient 10/01/2024 10:28 AM EDT A Body Mass Index follow-up plan has been documented for the patient 10/05/2024 8:54 AM EDT documented as of this encounter Care Teams Authors Motivational Relationship Specialty Start Date End Date Cali Snyder APRN [address] [place] [address] PCP - General 01/09/24 Nico Moncada MD [address] [address] Referring Physician Cardiology 12/21/21 Elba Alves DO [address] [address] Resident 06/13/24 documented as of this encounter
--- OUTSIDE RECORDS SUMMARY | 2024-10-30 10:13 | XMS_ITS | Encounter Summary ---
Author Organization Healthcare Address [address] [place] [address] Care Team Providers Care Absorber Operator Name Role Phone Nico Moncada MD Unavailable [phone] Cali Snyder APRN Primary Care Provider [phone] Elba Alves DO Unavailable [phone] Encounter Details Date Type Department Care [...] [address] [place] [address] Mark Zurita MD [address] [facility] [address] [place] [address] 01/21/2025 12:50 PM EST Office Visit [place] [facility] [address], 2[address] [place] [address] Lisa Leon, JUANJOSE [address] [place] [address] 04/01/2025 9:00 AM EST Appointment [facility] Radiology [address] [place] [address] 04/01/2025 10:00 AM EST Office Visit [facility] Head[facility] Neck & Respiratory [address] [place] [address] Candido Fitzgerald MD [address] [place] [address] documented as of this encounter Visit Diagnoses Not on filedocumented in this encounter Additional Health Concerns Assessment Noted Time A fall risk assessment has been complete d for the patient 09/17/2024 3:19 PM EDT A Body Mass Index follow-up plan has been documented for the patient 09/17/2024 3:40 PM EDT documented as of this encounter Care Teams Absorber Operator Relationship Specialty Start Date End Date Cali Snyder, EXCELSIOR MACHINE FEEDER [address] [place] [address] PCP - General 01/09/24 Nico Moncada MD [address] [place] [address] Referring Physician Cardiology 12/21/21 Elba Alves DO [address] [place] [address] [place] [address] Resident 06/13/24 documented as of this encounter
--- OUTSIDE RECORDS SUMMARY | 2024-10-30 10:13 | XMS_ITS | Encounter Summary ---
Author Organization Healthcare Address [address] [place] [address] Care Team Providers Care Pile Driver Name Role Phone Nico Moncada MD Unavailable [phone] Cali Snyder APRN Primary Care Provider [phone] Elba Alves DO Unavailable [phone] Encounter Details Date Type Department Care Team (Late st Contact Info) Description 10/04/2024 Telephone [place] [facility] [address], [address] [place] [address] Gloria Beavers, RN CH-VASCULAR & INTERVENTIONAL RADIOLOGY [...] Upcoming Encounters Date Type Department Care Team ([facility] st Contact Info) Description 01/01/2025 9:40 AM EDT Office Visit [facility] Gynecology [address] [place] [address] Mark Zurita MD [address] [place] [facility] [address] [place] [address] 01/21/2025 12:50 PM EST Office Visit [place] [facility] [address], [address] [place] [address] Lisa Leon APRN [address] [place] [address] 04/01/2025 9:00 AM EST Appointment [facility] Radiology [address] [place] [address] 04/01/2025 10:00 AM EST Office Visit [facility] Head[facility] Neck & Respiratory [address] 2[address] [place] [address] Candido Fitzgerald MD [address] [place] [address] documented as of this encounter Visit Diagnoses Not on filedocumented in this encounter Additional Health Concerns Assessment Noted Time A fall risk assessment has been complete d for the patient 10/01/2024 10:28 AM EDT A Body Mass Index follow-up plan has been documented for the patient 10/05/2024 8:54 AM EDT documented as of this encounter Care Teams Pile Driver Relationship Specialty Start Date End Date Cali Snyder APRN [address] [place] [address] PCP - General 01/09/24 Nico Moncada MD [address] [address] Referring Physician Cardiology 12/21/21 Elba Alves DO [address] [place] [address] Resident 06/13/24 documented as of this encounter
--- OUTSIDE RECORDS SUMMARY | 2024-10-30 10:13 | XMS_ITS | Encounter Summary ---
Author Organization Healthcare Address [address] [place] [address] Care Team Providers Care Digital Hardware Design Engineer Name Role Phone Nico Moncada MD Unavailable [phone] Cali Snyder APRN Primary Care Provider [phone] Elba Alves DO Unavailable [phone] Encounter Details Date Type Department Care Team ([facility] Contact Info) Description 10/16/2024 Orders Only [facility] Head, Neck & Respiratory 800 [facility], 2nd [place] [address] Nakia Junior, RN AMB-HEAD NECK AND RESPIRATORY [...] Upcoming Encounters Date Type Department Care Team ([facility] Contact Info) Description 01/01/2025 9:40 AM EDT Office Visit [facility] Gynecology 800 [facility] [address] [place] [address] Mark Zurita MD [address] [facility] [address] [place] [address] 01/21/2025 12:50 PM EST Office Visit [place] [facility] [address], [address] [place] [address] Lisa Leon APRN [address] [facility] [address] [place] [address] 04/01/2025 9:00 AM EST Appointment [facility] Radiology [address] [place] [address] 04/01/2025 10:00 AM EST Office Visit [facility] Head, Neck & Respiratory [address] [facility], [address]nd [place] [address] Candido Fitzgerald MD [address] [facility] [address] [place] [address] documented as of this encounter Visit Diagnoses Not on filedocumented in this encounter Additional Health Concerns Assessment Noted Time A fall risk assessment has been complete d for the patient 10/01/2024 10:28 AM EDT A Body Mass Index follow-up plan has been documented for the patient 10/05/2024 8:54 AM EDT documented as of this encounter Care Teams Digital Hardware Design Engineer Relationship Specialty Start Date End Date Cali Snyder APRN [address] [place] [address] PCP - General 01/09/24 Nico Moncada MD [address] [facility] [address] [place] [address] Referring Physician Cardiology 12/21/21 Elba Alves DO 1210 [facility] [address] [place] [id number] Resident 06/13/24 documented as of this encounter
--- OUTSIDE RECORDS SUMMARY | 2024-10-30 10:13 | XMS_ITS | Encounter Summary ---
Author Organization Healthcare Address [address] [place] [address] Care Team Providers Care Weight And Balance Control Agent Name Role Phone Nico Moncada MD Unavailable [phone] Cali Snyder APRN Primary Care Provider [phone] Elba Alves DO Unavailable [phone] Encounter Details Date Type Department Care [...] [address] [place] [address] Mark Zurita MD [address] [place] [address] 01/21/2025 12:50 PM EST Office Visit [place] [facility] [address], [address] [place] [address] Lisa Leon, JUANJOSE [address] [place] [address] 04/01/2025 9:00 AM EST Appointment [facility] Radiology [address] [place] [address] 04/01/2025 10:00 AM EST Office Visit [facility] Head, Neck & Respiratory [address] [place] [address] Candido Fitzgerald MD [address] [place] [address] documented as of this encounter Visit Diagnoses Not on filedocumented in this encounter Additional Health Concerns Assessment Noted Time A fall risk assessment has been complete d for the patient 10/01/2024 10:28 AM EDT A Body Mass Index follow-up plan has been documented for the patient 10/05/2024 8:54 AM EDT documented as of this encounter Care Teams Weight And Balance Control Agent Relationship Specialty Start Date End Date Cali Snyder, MANAGER IN TRAINING [address] [place] [address] PCP - General 01/09/24 Nico Moncada MD [address] [place] [address] Referring Physician Cardiology 12/21/21 Elba Alves DO [address] [place], [place] [address] Resident 06/13/24 documented as of this encounter
--- OUTSIDE RECORDS SUMMARY | 2024-10-30 10:13 | XMS_ITS | Encounter Summary ---
Author Organization [facility] Address [address] [place] [address] Care Team Providers Care Snow Plow Operator Name Role Phone Nico Moncada MD Unavailable [phone] Cali Snyder APRN Primary Care Provider [phone] Elba Alves DO Unavailable [phone] Encounter Details Date Type Department Care Team (Late st Contact Info) Description 09/17/2024 Telephone [place] [facility] [address], [address] [place] [address] [place] [address] Social History Tobacco Use Types Packs/Day Years [...] EDT Office Visit [facility] Gynecology 800 [facility] [address] [place] [address] Mark Zurita MD 800 [facility] [address] [place] [address] 01/21/2025 12:50 PM EST Office Visit [place] [facility] [address], [address] [place] [address] Lisa Leon, ACCOUNT SERVICES COORDINATOR [address] [facility] [address] [place] [address] 04/01/2025 9:00 AM EST Appointment [facility] Radiology [address] [place] [address] 04/01/2025 10:00 AM EST Office Visit [facility] Head, Neck & Respiratory [address] [facility], 2nd [place] [address] Candido Fitzgerald MD [address] [place] [address] documented as of this encounter Visit Diagnoses Not on filedocumented in this encounter Additional Health Concerns Assessment Noted Time A fall risk assessment has been complete d for the patient 09/17/2024 3:19 PM EDT A Body Mass Index follow-up plan has been documented for the patient 09/17/2024 3:40 PM EDT documented as of this encounter Care Teams Snow Plow Operator Relationship Specialty Start Date End Date Cali Snyder APRN [address] [place] [address] PCP - General 01/09/24 Nico Moncada MD [address] [address] Referring Physician Cardiology 12/21/21 Elba Alves DO [facility] [address] [address] Resident 06/13/24 documented as of this encounter
--- OUTSIDE RECORDS SUMMARY | 2024-10-30 10:13 | XMS_ITS | Clinical Summary ---
Author Organization [facility] [place] [facility] Address [address] [place] [address] Phone Care Team Providers Care Retail Account Representative Name Role Phone Unavailable Primary Care Provider [...]
--- OUTSIDE RECORDS SUMMARY | 2024-10-30 10:13 | XMS_ITS | Encounter Summary ---
Author Organization Healthcare Address [address] [place] [address] Care Team Providers Care Facilities Operator Name Role Phone Nico Moncada MD Unavailable [phone] Cali Snyder APRN Primary Care Provider [phone] Elba Alves DO Unavailable [phone] Encounter Details Date Type Department Care Team (Late st Contact Info) Description 09/19/2024 Results Follow-Up [place] [facility] [address], [address] [place] [address] Lisa Leon APRN [address] [place] [address] Social History Tobacco Use Types [...] [address] [place] [address] Mark Zurita MD [address] [facility] [address] [place] [address] 01/21/2025 12:50 PM EST Office Visit [place] [facility] [address], [address] [place] [address] Lisa Leon APRN [address] [place] [address] 04/01/2025 9:00 AM EST Appointment [facility] Radiology [address] [place] [address] 04/01/2025 10:00 AM EST Office Visit [facility] CC Head, Neck & Respiratory [address] [place] [address] Candido Fitzgerald MD [address] [place] [address] documented as of this encounter Visit Diagnoses Not on filedocumented in this encounter Additional Health Concerns Assessment Noted Time A fall risk assessment has been complete d for the patient 09/17/2024 3:19 PM EDT A Body Mass Index follow-up plan has been documented for the patient 09/17/2024 3:40 PM EDT documented as of this encounter Care Teams Facilities Operator Relationship Specialty Start Date End Date Cali Snyder APRN [address] [place] [address] PCP - General 01/09/24 Nico Moncada MD [address] [place] [address] Referring Physician Cardiology 12/21/21 Elba Alves DO 1210 [place] [facility] [address] [place] [address] Resident 06/13/24 documented as of this encounter
--- OUTSIDE RECORDS SUMMARY | 2024-10-30 10:13 | XMS_ITS | Clinical Summary ---
Author Organization Healthcare Address [address] [place] [address] Care Team Providers Care Store Leader Name Role Phone Nico Moncada MD Unavailable [phone] Cali Snyder APRN Primary Care Provider [phone] Elba Alves DO Unavailable [phone] Allergies Active Allergy Reactions Criticality Noted Date Comments Acetaminophen Unknown - Patient st ates they do not know rxn details Low 01/09/2020 Cephalexin Hives Medium 12/03/2021 Cephalosporins Hives Medium 06/12/2024 Naproxen Other - please docum ent in the comment field,Unknown - Patient states they do not know rxn details Low 10/25/2019 Salicylates Hives Medium 06/12/2024 Medications cholecalciferol (Vitamin D-3) 25 MCG (1000 UT) capsule daily. 0 Active alendronate (Fosamax) 70 MG tablet Take 1 tablet by mouth every 7 days. On Sundays 1 Active atorvastatin (Lipitor) 20 MG tablet daily. 1 Active pramipexole (Mirapex) 0.125 MG tablet TAKE 1 TABLET BY MOUTH NIGHTLY FOR RESTLESS LEGS 1 Active metoprolol tartrate (Lopressor) 25 MG tablet Take 0.5 tablets by mouth 2 times a day. 1 Active albuterol 108 (90 Base) MCG/ACT inhaler INHALE 2 PUFFS BY MOUTH EVERY 4 TO 6 HOURS NEEDED FOR SHORTNESS OF BREATH OR WHEEZING 1 Active Multiple Vitamin (MULTIVITAMINS PO) Take by mouth. Activ e estradiol (Estrace) 0.1 MG/GM vaginal cream USING FINGER TECHNIQUE DAILY FOR 2 WEEKS AND THEN TWICE WEEKLY VAGINALLY 4 Active neomycin-polymy javier-dexamethaso ne (Maxitrol) 3.5-28054-7.1 ophthalmic suspension 4 Active oxybutynin XL (Ditropan-XL) 10 MG 24 hr tablet Take 1 tablet by mouth daily. 4 Active ondansetron (Zofran) 4 MG tablet Take 1 tablet by mouth every 8 hours as needed for nausea or vomiting. 5 Active BIOTIN PO Take by mouth. Activ e fluticasone (Flonase) 50 MCG/ACT nasal spray SHAKE LIQUID AND USE 1 SPRAY IN EACH NOSTRIL DAILY NEEDED FOR ALLERGY SYMPTOMS 5 Active ASPIRIN 81 MG chewable tablet Chew 1 tablet daily. Active Fluticasone Furoate-Vilante rol (Breo Ellipta) 100-25 MCG/ACT aerosol powder Inhale 1 puff. Activ e doxycycline (Vibramycin) 100 MG capsule Take 1 capsule twice a day by oral route for 10 days. 5 Active hydrocortisone 0.5 % cream APPLY TOPICALLY TO THE AFFECTED AREA TWICE DAILY NEEDED FOR RASH Active nystatin (Mycostatin) 671008 UNIT/ML suspension 5 Active hydroxychloroqu ine (Plaquenil) 200 MG tabletIndicatio ns:Seropositive rheumatoid arthritis of multiple sites (CMS/HCC) Take 1 tablet by mouth daily. 30 tablet 5 5 Active predniSONE (Deltasone) 5 MG tablet Take 1-3 tabs as needed for breakthrough pain 30 tablet 2 5 Active Tofacitinib Citrate ER (Xeljanz XR) 11 MG tablet sustained-relea se 24 hourIndications :Seropositive rheumatoid arthritis of multiple sites (CMS/HCC) Take 1 tablet by mouth daily. 30 tablet 4 5 Active Active Problems Problem Noted Date Diagnosed Date [...] obstructive pulmonary disease) GERD (gastroesophageal reflux disease) Fractured sternal wires 11/04/2021 Rheumatoid arthritis 11/04/2021 Encounters Date Type Department Care Team Description 10/16/2024 Telephone [facility] [address] [facility], [address] [place] [phone] Nakia Junior, RN 10/16/2024 Orders Only [facility] [address] [facility], [address] [place] [phone] Nakia Junior, RN 10/04/2024 Telephone [facility] Medicine Specialties [address], [address] [place] [address] Gloria Beavers RN 10/01/2024 10:15 AM EDT Office Visit [facility] 800 [facility], [address] [place] [phone] Candido Fitzgerald MD Lung nodule 10/01/2024 9:20 AM EDT - 10/01/2024 11:59 PM EDT Hospital Encounter [facility] [address] [place] [address] Lung nodule Discharge Disposition: Home or Self Care 10/01/2024 Travel 09/19/2024 Results Follow-Up [facility] Medicine Specialties [address] [place] [address] Lisa Leon, JUANJOSE 09/17/2024 3:51 PM EDT - 09/17/2024 11:59 PM EDT Hospital Encounter [facility] Radiology [address], [address] [place] [address] Seropositive rheumatoid arthritis of multiple sites (CMS/HCC); High risk medication use; Long-term use of immunosuppressant medication Discharge Disposition: Home or Self Care 09/17/2024 3:20 PM EDT Office Visit [facility] Specialties [facility] [address], [address] [place] [phone] Lisa Leon APRN Seropositive rheumatoid arthritis of multiple sites ([facility]) (Primary Dx); High risk medication use; Long-term use of immunosuppressant medication 09/17/2024 Telephone [facility] Specialties [address] [place] [address], [address] [place] [phone] Lori Garcia 09/17/[address], [address] [place] [phone] Shauna Montemayor, PharmD Seropositive rheumatoid arthritis of multiple sites ([facility]) 09/17/2024 Travel 08/29/2024 11:00 AM EDT Office Visit [facility] Gynecology [address] [place] [address] Venancio Duran MD Severe vulvar dysplasia, histologically confirmed (Primary Dx) 08/29/2024 Travel 08/17/2024 Results Follow-Up [facility] Gynecology [address] [place] [address] Venancio Duran MD 08/17/[address], [address] [place] [phone] Shauna Montemayor, PharmD Seropositive rheumatoid arthritis of multiple sites ([facility]) 08/09/2024 3:11 PM EDT Anesthesia Event [facility] [address] [place] [address] Gely Major CRNA, Kortney Weldon MD 08/09/2024 2:45 PM EDT - 08/09/2024 4:45 PM EDT Surgery [facility] [address] [place] [address] Venancio Duran MD SPV [20318 (CPT )] 08/09/2024 1:19 PM EDT - 08/09/2024 6:00 PM EDT Hospital Encounter [facility] [address] [place] [address] Venancio Duran MD Severe vulvar dysplasia, histologically confirmed Discharge Disposition: Home or Self Care 08/09/2024 Travel 08/02/2024 3:30 PM EDT Pre-[facility] [address], [address] [place] [address] 08/02/2024 Travel 07/31/2024 11:50 AM EDT Clinical Support [facility] [address] [place] [address] Carcinoma in situ of vulva 07/31/2024 10:30 AM EDT Office Visit [facility] Gynecology [address] [place] [address] Mark Zurita MD Severe vulvar dysplasia, histologically [...] Smoking Tobacco: Former Cigarettes 1 16 2 004 - 2020 Passive Smoke Exposure: Past Smokeless Tobacco: Never [...] [address] [place] [address] Mark Zurita MD [address] [facility] [address] [place] [address] 01/21/2025 12:50 PM EST Office Visit [facility] Medicine Specialties [address] [place] [phone] Lisa Leon, METALLURGIST HELPER [address] [place] [address] 04/01/2025 9:00 AM EST Appointment [facility] [address] [place] [address] 04/01/2025 10:00 AM EST Office Visit [facility] [address] [place] [address] Candido Fitzgerald MD [address] [facility] [[email or web address]] [address] [place] [address] Health Maintenance Due Date Last [...] - Risk 60-74 years 1-dose series) 2012 [id number] Vaccine (2 - Deb risk series) 06/25/2020 [...] ANESTHESIA PLACEHOLDER Routine 08/09/2024 3:19 PM EDT [place] AN ELECTIVE SUPRAGLOTTIC AIRWAY Routine 08/09/2024 3:19 PM EDT [place] PART SIMPLE REMV VULVA 08/09/2024 2:59 PM [...] MD IMG CT PROCEDURES Final Resu lt * XR [...] heads with MCP joint space narrowing. Diffuse xxzn-ol-csxhfdwz interphalangeal joint space narrowing. Carpal rows are intact. No soft tissue swelling. Left hand/wrist: No acute fracture. Similar radial subluxation of the thumb MCP joint. Similar erosive changes of the thumb metacarpal head. Diffuse kmad-lu-bdlddmyb interphalangeal joint space narrowing. Carpal rows are [...] metacarpal heads with MCP jointspace narrowing. Diffuse tgnp-fk-gibygqzi interphalangeal joint spacenarrowing. Carpal rows are intact. No soft tissue swelling. Left hand/wrist: No acute fracture. Similar radial subluxation of thethumb MCP joint. Similar erosive changes of the thumb metacarpal head.Diffuse koji-co-reozbbsn interphalangeal joint space narrowing. Carpalrows are intact. [...] MD on 09/17/2024 4:31 PM Lisa Leon METALLURGIST HELPER IMG XR PROCEDURES Final R esult * [...] heads with MCP joint space narrowing. Diffuse jdgd-ik-oiwuowac interphalangeal joint space narrowing. Carpal rows are intact. No soft tissue swelling. Left hand/wrist: No acute fracture. Similar radial subluxation of the thumb MCP joint. Similar erosive changes of the thumb metacarpal head. Diffuse lncj-lk-suiwtesq interphalangeal joint space narrowing. Carpal rows are [...] metacarpal heads with MCP jointspace narrowing. Diffuse voly-gu-ccpniijw interphalangeal joint spacenarrowing. Carpal rows are intact. No soft tissue swelling. Left hand/wrist: No acute fracture. Similar radial subluxation of thethumb MCP joint. Similar erosive changes of the thumb metacarpal head.Diffuse tkyo-qb-skruyisp interphalangeal joint space narrowing. Carpalrows are intact. [...] MD on 09/17/2024 4:31 PM Lisa Leon METALLURGIST HELPER IMG XR PROCEDURES Final R esult * [...] heads with MCP joint space narrowing. Diffuse wcld-cn-uwcclcbr interphalangeal joint space narrowing. Carpal rows are intact. No soft tissue swelling. Left hand/wrist: No acute fracture. Similar radial subluxation of the thumb MCP joint. Similar erosive changes of the thumb metacarpal head. Diffuse ekgb-fd-pocxudgh interphalangeal joint space narrowing. Carpal rows are [...] metacarpal heads with MCP jointspace narrowing. Diffuse jagd-hm-barhfvgf interphalangeal joint spacenarrowing. Carpal rows are intact. No soft tissue swelling. Left hand/wrist: No acute fracture. Similar radial subluxation of thethumb MCP joint. Similar erosive changes of the thumb metacarpal head.Diffuse gkcv-ab-otkctdov interphalangeal joint space narrowing. Carpalrows are intact. [...] MD on 09/17/2024 4:31 PM Lisa Leon METALLURGIST HELPER IMG XR PROCEDURES Final R esult * Surgical Pathology Exam (08/09/2024 3:58 PM EDT) Case Report Surgical Pathology Case: [id number] Authorizing Provider: Venancio Duran MD Collected: 08/09/2024 [id number] Ordering Location: [facility] OPERATING ROOM Received: 08/09/2024 1630 Pathologist: Jay Wong MD Specimen: Other (specify site), Perineal Body Lesion 08/15/2024 3:[address] [facility] Final Diagnosis A. VULVA, PERINEAL BODY LESION, EXCISION: - HIGH-GRADE SQUAMOUS INTRAEPITHELIAL LESION (HSIL, OLIVIA II, MODERATE DYSPLASIA). - THE HIGH-GRADE DYSPLASIA EXTENDS TO THE ANTERIOR AND POSTERIOR TIPS. 08/15/2024 3:[address] [facility] at 1511 EDT Clinical Information Severe vulvar dysplasia, histologically confirmed [D07.1] 08/15/2024 3:[address] [facility] Gross Description A. PERINEAL [...] DANIELLE Hassan (ASCP) 08/15/2024 3:[address] [facility] Note: A resident was involved in the service. I attest I examined the relevant preparations for the specimens and confirmed the diagnosis or interpretation. 08/15/2024 3:[address] 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 [address] [place] [address] * [place] AN ELECTIVE SUPRAGLOTTIC AIRWAY, PB ANESTHESIA PLACEHOLDER (08/09/2024 3:19 PM EDT) Narrative Gely Major CRNA, DNP - 08/09/2024 3:19 PM EDT Gely Major CRNA, DNP 08/09/2024 3:32 PM Airway Date/Time: 08/09/2024 3:19 PM Reason: elective Airway not difficult General Information and Staff Patient location during procedure: OR TIRE MOLDER: Gely Major CRNA, DAVID Performed: TIRE MOLDER Patient Condition Indications for airway management: anesthesia [...] LAB HEMATOLOGY METHOD 07/31/2024 1:[address] [facility] RBC Count 4.45 3.90 - 5.20 10*6/uL LAB HEMATOLOGY METHOD 07/31/2024 1:[address] [facility] HGB 13.0 11.2 - 15.7 g/dL LAB HEMATOLOGY METHOD 07/31/2024 1:[address] [facility] HCT 38.5 34.0 - 45.0 % LAB HEMATOLOGY METHOD 07/31/2024 1:[address] [facility] Platelet Count 175 155 - 369 10*3/uL LAB HEMATOLOGY METHOD 07/31/2024 1:[address] [facility] MCV 87 79 - 98 fL LAB HEMATOLOGY METHOD 07/31/2024 1:[address] [facility] MCH 29.2 26.0 - 32.0 pg LAB HEMATOLOGY METHOD 07/31/2024 1:[address] [facility] MCHC 33.8 30.7 - 35.5 g/dL LAB HEMATOLOGY METHOD 07/31/2024 1:[address] [facility] RDW 14.1 11.5 - 14.5 % LAB HEMATOLOGY METHOD 07/31/2024 1:[address] [facility] MPV 11.1 8.8 - 12.5 fL LAB HEMATOLOGY METHOD 07/31/2024 1:[address] [facility] nRBC 0.0 <=0.0 per 100 WBCs LAB HEMATOLOGY METHOD 07/31/2024 1:[address] [facility] Differential Type Automated LAB HEMATOLOGY METHOD 07/31/2024 1:[address] [facility] Neutrophils % 66 % LAB HEMATOLOGY METHOD 07/31/2024 1:[address] [facility] Lymphocytes % 23 % LAB HEMATOLOGY METHOD 07/31/2024 1:[address] [facility] Monocytes % 9 % LAB HEMATOLOGY METHOD 07/31/2024 1:[address] [facility] Eosinophils % 1 % LAB HEMATOLOGY METHOD 07/31/2024 1:[address] [facility] Basophils % 1 % LAB HEMATOLOGY METHOD 07/31/2024 1:[address] [facility] Immature Granulocytes % 0 % LAB HEMATOLOGY METHOD 07/31/2024 1:[address] [facility] Neutrophils Absolute 3.84 1.60 - 6.10 10*3/uL LAB HEMATOLOGY METHOD 07/31/2024 1:[address] [facility] Lymphocytes Absolute 1.37 1.20 - 3.90 10*3/uL LAB HEMATOLOGY METHOD 07/31/2024 1:[address] [facility] Monocytes Absolute 0.51 0.30 - 0.90 10*3/uL LAB HEMATOLOGY METHOD 07/31/2024 1:[address] [facility] Eosinophils Absolute 0.07 0.00 - 0.50 10*3/uL LAB HEMATOLOGY METHOD 07/31/2024 1:[address] [facility] Basophils Absolute 0.04 0.00 - 0.10 10*3/uL LAB HEMATOLOGY METHOD 07/31/2024 1:[address] [facility] Immature Granulocytes Absolute 0.02 0.00 - 0.06 10*3/uL LAB HEMATOLOGY METHOD 07/31/2024 1:[address] [facility] Blood Venous blood specimen / Unknown Venipuncture / Unknown 07/31/2024 12:03 PM EDT 07/31/2024 12:[address] [facility] - 07/31/2024 1:08 PM EDT Therapeutic decision making should be based on absolute values, rather than percentages. us Mark Zurita MD LAB BLOOD ORDERABLES Final Res ult [facility] [address] [place] [address] * Hemoglobin A1c (07/31/2024 12:03 PM EDT) Hemoglobin A1c 5.3 <5.7 % 07/31/2024 2:[address] [facility] Blood Venous blood specimen / Unknown Venipuncture / Unknown 07/31/2024 12:03 PM EDT 07/31/2024 12:[address] [facility] - 07/31/2024 2:16 PM EDT HA1C Interpretive Data: Diagnosis of Diabetes: Diabetic > or = 6.5% Pre-diabetic 5.7 to 6.4% Non-diabetic < or = 5.6% Glycemic Targets for Type I and Type II Diabetics: Non- Adults <7.0% Adults <6.0% Children and Adolescents <7.5% Source: [place] [employer]. Standards of medical care in diabetes,2017. Diabetes Care.2017:40 (suppl 1):S1-S135. Mark Zurita MD LAB BLOOD ORDERABLES Final Res ult Performing Organization Address [facility] Co de Phone Number [facility] [address] [place] [address] * Comprehensive Metabolic Panel, Plasma (07/31/2024 12:03 PM EDT) Glucose, Plasma 90 74 - 99 mg/dL 07/31/2024 1:[address] [facility] BUN, Plasma 12 8 - 23 mg/dL 07/31/2024 1:[address] [facility] Creatinine, Plasma 0.86 0.60 - 1.10 mg/dL 07/31/2024 1:[address] [facility] BUN/Creatinine Ratio 14 07/31/2024 1:[address] [facility] Sodium, Plasma 138 136 - 145 mmol/L 07/31/2024 1:[address] [facility] Potassium, Plasma 4.1 3.6 - 4.9 mmol/L 07/31/2024 1:[address] [facility] Chloride, Plasma 104 97 - 107 mmol/L 07/31/2024 1:[address] [facility] CO2, Plasma 26 22 - 29 mmol/L 07/31/2024 1:[address] [facility] Anion Gap 8 6 - 16 mmol/L 07/31/2024 1:[address] [facility] Total Calcium, Plasma 9.5 8.9 - 10.2 mg/dL 07/31/2024 1:[address] [facility] Total Protein 6.7 6.3 - 7.9 g/dL 07/31/2024 1:[address] [facility] Albumin, Plasma 4.2 3.5 - 5.2 g/dL 07/31/2024 1:[address] [facility] AST, Plasma 23 10 - 35 U/L 07/31/2024 1:[address] [facility] ALT, Plasma 16 10 - 35 U/L 07/31/2024 1:[address] [facility] Alkaline Phosphatase, Plasma 63 46 - 142 U/L 07/31/2024 1:[address] [facility] Total Bilirubin, Plasma 0.3 0.2 - 1.1 mg/dL 07/31/2024 1:[address] [facility] eGFRcr 72.3 mL/min/1.7 3m*2 07/31/2024 1:[address] [facility] Comment:Reported eGFRcr in m L/min/1.73m2 is based the CKD-EPI 2020 equation that does not use a race coefficient. Blood Venous blood specimen / Unknown Venipuncture / Unknown 07/31/2024 12:03 PM EDT 07/31/2024 12:39 PM EDT us Mark Zurita MD LAB BLOOD ORDERABLES Final Res ult [facility] [address] [place] [address] * (ABNORMAL) Hepatitis C Antibody (04/03/2021 4:35 PM EST) Hepatitis C Antibody Positive( A) Negative 04/03/2021 8:34 PM EST [facility] Comment:This specimen is gee ng sent for confirmation by RT-PCR. Blood Venous blood specimen / Unknown Venipuncture / Unknown 04/03/2021 4:35 PM EST 04/03/2021 4:35 PM EST [facility] LAB BLOOD ORDERABLES Final [facility] t HEALTH[facility]ARE [facility] [address] [place] [address] from Last 3 Months or Most Recently Relevant to Health Maintenance Insurance [employer] Care Teams Store Leader Relationship Specialty Start Date End Date Cali Snyder APRN [address] [place] [address] PCP - General 01/09/24 Nico Moncada MD [address] [address] Referring Physician Cardiology 12/21/21 Elba Alves DO [address] [facility] [address] [place] [address] Resident 06/13/24
--- OUTSIDE RECORDS SUMMARY | 2024-10-30 11:09 | XMS_ITS | CCD ---
Author Name Christin Thapa NP Address [address] [facility] [address] [place] [address] Phone Organization [facility] Phone Care Team Providers Care Christian Education Director Name Role Phone Christin Thapa NP Primary Care Provider Unavaila ble Unavailable Chronic Care Management Unavaila ble Summary Purpose DataExchange Insurance Providers Payer name Policy type / Coverage type Covered alliance party ID Effective Begin Date Effective End Date [id number] Unknown Unknown Family history Father Diagnosis Age [...] School Graduate 05/20 Employment Unknown Retired from [employer] 06/13/2024 Tobacco history Unknown Former User 06/13/[address]: [id number] Never drinks alco hol 06/13/2024 Illegal/Recreational drug [...] Fill Instructions Lipitor 20 mg tablet RxNorm: 372509 Take 1 Tablet(s) Oral every day 07/31/19 25 026 Active Breo Ellipta 100 mcg-25 mcg/dose powder for inhalation RxNorm: 1199366 Inhale 1 Puff(s) Inhalation every day 07/31/19 25 025 Inactive Breo Ellipta 100 mcg-25 mcg/dose powder for inhalation RxNorm: 4011362 Inhale 1 Puff(s) Inhalation every day 06/14/19 25 025 Inactive Tofacitinib Citrate ER (Xeljanz XR) 11 MG tablet sustained-release 24 hour RxNorm: 6458972 Take 1 Tablet(s) Oral every day . 04/25/19 25 No Stop Date Active hydroxychloroquine (Plaquenil) 200 MG tablet RxNorm: 2518187 Take 1 Tablet(s) (200 mg) Oral every day . 01/09/20 24 No Stop Date Active oxybutynin XL (Ditropan-XL) 10 MG 24 hr tablet RxNorm: 154688 Take 1 Tablet(s) (10 mg) Oral every day . 10/18/19 24 No Stop Date Active estradiol (Estrace) 0.1 MG/GM vaginal cream RxNorm: 864112 USING FINGER TECHNIQUE DAILY FOR 2 WEEKS AND THEN TWICE WEEKLY VAGINALLY 10/17/19 24 No Stop Date Active fhhpokwj-vzjiyvgvf-xt xamethasone (Maxitrol) 3.5-38548-1.1 ophthalmic suspension RxNorm: 196561 opht 09/05/19 24 025 Inactive predniSONE (Deltasone) 5 MG tablet RxNorm: 692099 Take 3 tablets for 5 days, then take 2 tablets for 5 days, then take 1 tablet for 5 days. 09/01/19 24 No Stop Date Active metoprolol tartrate (Lopressor) 25 MG tablet RxNorm: 008776 Take 0.5 tablets (12.5 mg) by mouth 2 (two) times a day. 03/05/20 21 No Stop Date Active albuterol 108 (90 Base) MCG/ACT inhaler RxNorm: 3713470 INHALE 2 PUFFS BY MOUTH EVERY 4 TO 6 HOURS NEEDED FOR SHORTNESS OF BREATH OR WHEEZING 10/03/19 21 No Stop Date Active atorvastatin (Lipitor) 20 MG tablet RxNorm: 240636 1 (one) time each day. 09/09/19 21 025 Inactive pramipexole (Mirapex) 0.125 MG tablet RxNorm: 186034 TAKE 1 TABLET BY MOUTH NIGHTLY FOR RESTLESS LEGS 07/08/19 21 No Stop Date Active alendronate (Fosamax) 70 MG tablet RxNorm: 106226 TAKE 1 TABLET BY MOUTH EVERY WEEK ON SAME DAY EACH WEEK 06/24/19 21 No Stop Date Active Medication Administered No Medication Administered data Procedures Procedure Codes Date Most recent systolic blood pressure 130 to 139 m m CPT-4: 3075F 06/13/2024 Most recent diastolic blood pressure < 80 mm hg CPT-4: 3078F 06/13/2024 MED LIST DOCD IN [facility] CPT-4: 1159F 06/13/2024 RVW MEDS BY RX/DR IN [facility] CPT-4: 1160F 2024 Functional Status Assessed CPT-4: 1170F 06/13 Screening for clinical depre ssion is negative, follow-up plan not required CPT-4: G8510 06/13/2024 Vital Signs Date Vital 06/13/2024 Blood Pressure 1: 138/70 Code: 8480-6 BMI: 20.1 Code: 29537-6 Heart Rate 1: 65 bpm Height: 5'3 Code: 8302-2 Respiratory Rate: 16 bpm SpO2: 98% Temperature: 36.4 (C) / 97.6 (F) Weight: 113 lbs 4 oz Code: 84006-6 Reason For Visit Reason For Visit Effective Dates Notes established patient visit 07/30/2024 new patient welcome visit 06/13/2024 Encounters Encounter Performer Location Location Address Codes Date () (EST PT) LOW COMPLEXITY TELEHEALTH VISIT Diagnosis: COPD (chronic obstructive pulmonary disease)[ICD10: J44.9] Diagnosis: Rheumatoid arthritis[ICD10: M06.9] Diagnosis: Hypertension[ICD10 : I10] 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 Office [address] [place] [address] CPT-4: 24319 06/13/2024 Plan of Care Planned Activity Notes Codes Status Date Visit Plan: This is a phone call only. Patient is in the [facility] and consents to treatment via telephone. [...] Thapa WPtel: [address] [facility] [address] [id number] ETV 07/30/2024 Patient Education: Patient Medication Summary [...] has quit for many years now. Her Disc Pad Plate Filler gave her BREO to use but she [...] [facility] [address] 06/13/2024 Patient Education: Patient Medication Summary Completed 06/13/2024 Instructions Comment Date . This is a phone call only. Patient is in the [facility] and consents to treatment via telephone. [...] has quit for many years now. Her Disc Pad Plate Filler gave her BREO to use but she [...]
--- OUTSIDE RECORDS SUMMARY | 2024-10-30 11:09 | XMS_ITS | CCD ---
Author Name Christin Thapa NP Address [address] [facility] [address] [place] [address] Phone Organization [facility] Phone Care Team Providers Care Dishwasher Name Role Phone Christin Thapa NP Primary Care Provider Unavaila ble Unavailable Chronic Care Management Unavaila ble Summary Purpose DataExchange Insurance Providers Payer name Policy type / Coverage type Covered green party ID Effective Begin Date Effective End Date [facility] [id number] Unknown Unknown Family history Father Diagnosis Age [...] School Graduate 05/20 Employment Unknown Retired from [employer] 06/13/2024 Tobacco history Unknown Former User 06/13/[address]: [id number] Never drinks alco hol 06/13/2024 Illegal/Recreational drug [...] Fill Instructions Lipitor 20 mg tablet RxNorm: 298018 Take 1 Tablet(s) Oral every day 07/31/19 25 026 Active Breo Ellipta 100 mcg-25 mcg/dose powder for inhalation RxNorm: 6305684 Inhale 1 Puff(s) Inhalation every day 07/31/19 25 025 Inactive Breo Ellipta 100 mcg-25 mcg/dose powder for inhalation RxNorm: 6710919 Inhale 1 Puff(s) Inhalation every day 06/14/19 25 025 Inactive Tofacitinib Citrate ER (Xeljanz XR) 11 MG tablet sustained-release 24 hour RxNorm: 9292955 Take 1 Tablet(s) Oral every day . 04/25/19 25 No Stop Date Active hydroxychloroquine (Plaquenil) 200 MG tablet RxNorm: 9279686 Take 1 Tablet(s) (200 mg) Oral every day . 01/09/20 24 No Stop Date Active oxybutynin XL (Ditropan-XL) 10 MG 24 hr tablet RxNorm: 192786 Take 1 Tablet(s) (10 mg) Oral every day . 10/18/19 24 No Stop Date Active estradiol (Estrace) 0.1 MG/GM vaginal cream RxNorm: 013448 USING FINGER TECHNIQUE DAILY FOR 2 WEEKS AND THEN TWICE WEEKLY VAGINALLY 10/17/19 24 No Stop Date Active comzlmbw-kdpjwevug-sn xamethasone (Maxitrol) 3.5-04368-8.1 ophthalmic suspension RxNorm: 781418 opht 09/05/19 24 025 Inactive predniSONE (Deltasone) 5 MG tablet RxNorm: 473916 Take 3 tablets for 5 days, then take 2 tablets for 5 days, then take 1 tablet for 5 days. 09/01/19 24 No Stop Date Active metoprolol tartrate (Lopressor) 25 MG tablet RxNorm: 487150 Take 0.5 tablets (12.5 mg) by mouth 2 (two) times a day. 03/05/20 21 No Stop Date Active albuterol 108 (90 Base) MCG/ACT inhaler RxNorm: 0708886 INHALE 2 PUFFS BY MOUTH EVERY 4 TO 6 HOURS NEEDED FOR SHORTNESS OF BREATH OR WHEEZING 10/03/19 21 No Stop Date Active atorvastatin (Lipitor) 20 MG tablet RxNorm: 581207 1 (one) time each day. 09/09/19 21 025 Inactive pramipexole (Mirapex) 0.125 MG tablet RxNorm: 529762 TAKE 1 TABLET BY MOUTH NIGHTLY FOR RESTLESS LEGS 07/08/19 21 No Stop Date Active alendronate (Fosamax) 70 MG tablet RxNorm: 911348 TAKE 1 TABLET BY MOUTH EVERY WEEK ON SAME DAY EACH WEEK 06/24/19 21 No Stop Date Active Medication Administered No Medication Administered data Procedures Procedure Codes Date Most recent systolic blood pressure 130 to 139 m m CPT-4: 3075F 06/13/2024 Most recent diastolic blood pressure < 80 mm hg CPT-4: 3078F 06/13/2024 MED LIST DOCD IN [facility] CPT-4: 1159F 06/13/2024 RVW MEDS BY RX/DR IN [facility] CPT-4: 1160F 2024 Functional Status Assessed CPT-4: 1170F 06/13 Screening for clinical depre ssion is negative, follow-up plan not required CPT-4: G8510 06/13/2024 Vital Signs Date Vital 06/13/2024 Blood Pressure 1: 138/70 Code: 8480-6 BMI: 20.1 Code: 70388-9 Heart Rate 1: 65 bpm Height: 5'3 Code: 8302-2 Respiratory Rate: 16 bpm SpO2: 98% Temperature: 36.4 (C) / 97.6 (F) Weight: 113 lbs 4 oz Code: 04928-0 Reason For Visit Reason For Visit Effective Dates Notes established patient visit 07/30/2024 new patient welcome visit 06/13/2024 Encounters Encounter Performer Location Location Address Codes Date () (EST PT) LOW COMPLEXITY TELEHEALTH VISIT Diagnosis: COPD (chronic obstructive pulmonary disease)[ICD10: J44.9] Diagnosis: Rheumatoid arthritis[ICD10: M06.9] Diagnosis: Hypertension[ICD10 : I10] [facility] [address] [facility] [place] [address] CPT-4: 20878 07/30/2024 ([id number]) Home or Residence Visit 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 [address] [id number] ETV 07/30/2024 Patient Education: Patient Medication Summary [...] has quit for many years now. Her Header Operator gave her BREO to use but she [...] of care. 06/13/2024 Appointment: Christin Thapa WPtel: [facility] [address] 06/13/2024 Patient Education: Patient Medication [...] has quit for many years now. Her Header Operator gave her BREO to use but she [...]
[2024-10-30 11:23] LABS: Triiodothryronine (T3) Uptake 31 % (23.5-40.5)
[2024-10-30 11:24] LABS: Free Thyroxine Index 2.7 ug/dL (5.93-13.13); T4 (Thyroxine) 8.8 ug/dl (5.53-11.0)
[2024-10-30 11:37] LABS: Thyroid Stimulating Hormone 0.02 uIU/mL (0.465-4.68)
== END 2024-10-30 23:59 | disposition home or self-care (01) ==
LOC: LAB 09:56
PROVIDERS: PCP Family Medicine; Visit Provider Family Medicine
DX: R79.89 Other specified abnormal findings of blood chemistry (principal)
CPT/HCPCS: 36415; 84436; 84443; 84479

== ENCOUNTER 2024-10-31 12:37 | Outpatient (CLI) | payer MEDICARE, SELFPAY ==
--- OUTSIDE RECORDS SUMMARY | 2020-01-26 06:00 | XMS_ITS | Encounter Summary ---
Author Organization [facility] [address] Care Team Providers Care Radiological Equipment Specialist Name Role Phone Unavailable Primary Care Provider Unavailabl e Encounter Details Date Type Department Care Team (Late st Contact Info) Description 01/26/2020 5:00 AM EST Hospital Encounter [facility] Referral Lab [address] [phone] Haroon Cain MD [address] [place] [address] Social History Tobacco Use Types Packs/Day Years [...]
--- OUTSIDE RECORDS SUMMARY | 2024-09-17 15:20 | XMS_ITS | Encounter Summary ---
Author Organization Healthcare Address [address] 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 Name Role Phone Nico Moncada MD Unavailable [phone] Cali Snyder APRN Primary Care Provider [phone] Elba Alves DO Unavailable [phone] Reason for Visit * Reason Comments Follow-up Encounter Details Date Type Department Care Team (Latest Contact Info) Description 09/17/2024 3:20 PM EDT [facility] [address] [place] [address] Lisa Fowler APRN [address] [place] [address] Seropositive rheumatoid arthritis of multiple sites (CMS/HCC) (Primary Dx); High risk medication use; Long-term use of immunosuppressant medication Social History Tobacco Use Types Packs/Day Years Used Date Smoking Tobacco: Former Cigarettes 1 16 2 - 2019 Passive Smoke Exposure: Past Smokeless Tobacco: Never Alcohol Use Standard Drinks/Week Comments Never 0 (1 standard drink = 0.6 oz pur e alcohol) PHQ-2 Answer Date Recorded Patient Health Questionnaire-2 Score 0 08/29/2024 AUDIT-C Answer Date Recorded Frequency of Alcohol Consumption Not on file 09/17/2024 Q2: How many drinks containi ng alcohol do you have on a typical day when you are drinking? Patient does not drink Frequency of Binge Drinking Not on file 08/21 PHQ-2A Answer Date Recorded Patient Health Questionnaire-2 Score 0 09/01/2022 Comments No Sex and Gender Information Value Date Recorded Sex Assigned at Not on file Legal Sex Female 7:42 PM EDT Gender Identity Not on file Sexual Orientation Not on file documented as of this encounter Last Filed Vital Signs Vital Sign Reading Time Taken Comments Blood Pressure 139/74 09/17/2024 3:12 PM EDT Pulse 63 09/17/2024 3:12 PM EDT Temperature 36.7 C (98.1 F) 09/17/2024 3:12 PM EDT Respiratory Rate 16 09/17/2024 3:12 PM EDT Oxygen Saturation 99% 09/17/2024 3:12 PM EDT Inhaled Oxygen Concentration - - Weight 52.2 kg (115 lb 1.3 oz) 09/17/2024 3:12 P M EDT Height 160 cm (5' 3 ) 09/17/2024 3:12 PM EDT Body Mass Index 20.39 09/17/2024 3:12 PM EDT documented in this encounter Functional Status documented as of this encounter Miscellaneous Notes * Addendum Note - Lisa Fowler APRN - 09/17/2024 3:20 PM EDTAddended by: LISA FOWLER on: 09/17/2024 03:39 PM Modules accepted: Orders * Progress Notes - Lisa Fowler APRN - 09/17/2024 3:20 PM EDT Images from the original note were not included. Jacque Worley is a 74 y.o. female Chief complaint: here for follow up of Seropositive rheumatoid arthritis of multiple sites ([facility]) [M05.79] Subjective HPI Jacque Worley is a 74 y.o. female PMHx hep C s/p tx, CAD s/p bypass fall of 2019, afib, COPD, here with her daughter in our clinic for follow-up for Erosive seropositive rheumatoid arthritis (RF 307; CCP >200; - RILEY) multiple site. . Past history: In 2005 diagnosed with rheumatoid arthritis based on inflammatory joint pain in MCP, PIP, Writs, shoulders, knees, ankles and interphalangeal in feet. She was only given Plaquenil and prednisolone asshe had hepatitis C. Hep C Eradicated 2018. She used to follow up with rheumatology Dr. Oliver and changes to [facility] rheumatology due to insurance coverage. Med Hx: Xeljanz (12/2018- current) HCQ (remote use- current) Interim history: Last seen by me 03/13. Pt reports she continues to do well on Xeljanz and hydroxychloriquine. She reports having a stye on her eye that required several different medications. She has an Ophthalmology appt in the next month or so. Advised patient to ask regarding stye. She denies any joint swelling. Endorses back pain. Today (09/17/24): Pt reports she had a precancerous lesion taken off of her vulva. She has upcoming appt for pulm, derm, and ophthalmology. She is currently on an antibiotics for copd exacerbation/URI. Instructed to start hydroxychloriquine and Xeljanz after antibiotics is completed. Review of Systems Constitutional: Positive for fatigue. Negative for fever. Respiratory: Negative for shortness of breath. Cardiovascular: Negative for chest pain. Musculoskeletal: Positive for arthralgias and back pain. Negative for joint swelling. See HPI Skin: Negative for rash. The following portions of the chart were reviewed this encounter and updated as appropriate: Past Medical History: Diagnosis Date COPD (chronic obstructive pulmonary disease) ([facility]) COVID-19 11/13/2021 Heart disease Hepatitis C Personal history of other diseases of the digestive system History of gallstones Personal history of other diseases of the musculoskeletal system and connective tissue History of osteoporosis Rheumatoid arthritis ([facility]) Skin cancer UTI (urinary tract infection) UTI (urinary tract infection) Past Surgical History: Procedure Laterality Date CARDIAC CATHETERIZATION N/A CATARACT EXTRACTION N/A CORONARY ARTERY BYPASS GRAFT N/A 12/25/2019 CABG x 1 - AGUILAR to LAD (Dr Jose Delgado) LEG SURGERY N/A STERNAL WIRES REMOVAL 12/09/2021 Dr Jose Delgado - [facility] TUBAL LIGATION N/A VULVA SURGERY Right 08/09/2024 PSV for dysplasia Social History Socioeconomic History Marital status: Spouse name: Jeffry Number of children: 2 Years of education: Not on file Highest education level: Not on file Occupational History Not on file Tobacco Use Smoking status: Former Current packs/day: 0.00 Average packs/day: 1 pack/day for 16.0 years (16.0 ttl pk-yrs) Types: Cigarettes Start date: 2003 Quit date: 2019 Years since quittin.4 Passive exposure: Past Smokeless tobacco: Never Vaping Use Vaping status: Never Used Substance and Sexual Activity Alcohol use: Never Drug use: Never Comment: Drug use: No drug use Sexual activity: Defer Other Topics Concern Not on file Social History Narrative Marital Status: Two children 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 [employer] Strain: Not on file Food Insecurity: Not on file Transportation Needs: Not on file Physical Activity: Not on file Stress: Not on file Social Connections: Not on file Intimate Partner Violence: Not on file Housing Stability: Not on file Family History Problem Relation Name Age of Onset Cardiac disorder Mother Crohn's disease Mother Hepatitis Mother Cardiac disorder Father Diabetes Father Hypertension Father Liver disease Father Anxiety disorder Sibling Conversions - Other Sibling Bipolar disorder (manic depression) Addiction problem Sibling Cardiac disorder Sibling Depression Sibling Anesthesia problems Neg Hx Malig Hyperthermia Neg Hx Allergies Allergen Reactions Cephalexin Hives Cephalosporins Hives Salicylates Hives Acetaminophen Unknown - Patient states they do not know rxn details Naproxen Other - please document in the comment field and Unknown - Patient states they do not knowrxn details Current Outpatient Medications Medication Sig Dispense Refill albuterol 108 (90 Base) MCG/ACT inhaler INHALE 2 PUFFS BY MOUTH EVERY 4 TO 6 HOURS NEEDED FOR SHORTNESS OF BREATH OR WHEEZING alendronate (Fosamax) 70 MG tablet Take 1 tablet by mouth every 7 days. On Sundays ASPIRIN 81 MG chewable tablet Chew 1 tablet daily. atorvastatin (Lipitor) 20 MG tablet daily. BIOTIN PO Take by mouth. cholecalciferol (Vitamin D-3) 25 MCG (1000 UT) capsule daily. doxycycline (Vibramycin) 100 MG capsule Take 1 capsule twice a day by oral route for 10 days. estradiol (Estrace) 0.1 MG/GM vaginal cream USING FINGER TECHNIQUE DAILY FOR 2 WEEKS AND THEN TWICEWEEKLY VAGINALLY fluticasone (Flonase) 50 MCG/ACT nasal spray SHAKE LIQUID AND USE 1 SPRAY IN EACH NOSTRIL DAILY NEEDED FOR ALLERGY SYMPTOMS Fluticasone Furoate-Vilanterol (Breo Ellipta) 100-25 MCG/ACT aerosol powder Inhale 1 puff. hydrocortisone 0.5 % cream APPLY TOPICALLY TO THE AFFECTED AREA TWICE DAILY NEEDED FOR RASH hydroxychloroquine (Plaquenil) 200 MG tablet Take 1 tablet by mouth daily. 30 tablet 5 metoprolol tartrate (Lopressor) 25 MG tablet Take 0.5 tablets by mouth 2 times a day. Multiple Vitamin (MULTIVITAMINS PO) Take by mouth. ntasgjov-eddpmkkzz-flbsyeoyayauv (Maxitrol) 3.5-94024-3.1 ophthalmic suspension nystatin (Mycostatin) 288594 UNIT/ML suspension ondansetron (Zofran) 4 MG tablet Take 1 tablet by mouth every 8 hours as needed for nausea or vomiting. oxybutynin XL (Ditropan-XL) 10 MG 24 hr [...] 30 tablet 3 No current facility-administered medications for this visit. Objective Last visit labs: Admission on 08/09/2024, Discharged on 08/09/2024 Component Date Value Ref Range Status Case Report 08/09/2024 Final Value:Surgical Pathology Case: [id number] Authorizing Provider: Venancio Duran MD Collected: 08/09/2024 8919 Ordering Location: [facility] Received: 08/09/2024 1630 Pathologist: Jay Wong MD Specimen: Other (specify site), Perineal Body Lesion Final Diagnosis 08/09/2024 Final Value:A. VULVA, PERINEAL BODY LESION, EXCISION: - HIGH-GRADE SQUAMOUS INTRAEPITHELIAL LESION (HSIL, OLIVIA II, MODERATE DYSPLASIA). - THE HIGH-GRADE DYSPLASIA EXTENDS TO THE ANTERIOR AND POSTERIOR TIPS. 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 PERINEAL BODY LESION Received fresh and subsequently placed in formalin, labeled ???perineal body lesion?? , consisting of a single oriented fragment [...] anterior margin; #2- 0.3 cm from the rightanterior margin, 0.5 cm to the right posterior margin, 0.2 cm to the left anterior margin, and 0.6 cm to the left posterior margin. The specimen is inked as follows: Right half-blue, left half-green.The specimen is serially sectioned from anterior to posterior, entirely submitted as follows: A1: Anterior tip A2: Anterior half including larger lesion A3: Posterior tip including both lesions A4: Posterior tip Cold Time: 32m DANIELLE Hassan ([facility]) Note: 08/09/2024 Final Value:A resident was involved in the service. I attest I examined the relevant preparations for thespecimens and confirmed the diagnosis or interpretation. Vitals: 09/17/24 1512 BP: 139/74 Pulse: 63 Resp: 16 Temp: 36.7 ??C (98.1 ??F) SpO2: 99% Physical Exam Vitals reviewed. Constitutional: General: She is not in acute distress. Appearance: Normal appearance. Eyes: Conjunctiva/sclera: Conjunctivae normal. Cardiovascular: Rate and Rhythm: Normal rate and regular rhythm. Heart sounds: No murmur heard. Pulmonary: Effort: Pulmonary effort is normal. Breath sounds: Normal breath sounds. Musculoskeletal: General: Tenderness and deformity (ulnar deviation bilaterally, multiple bouchards and heberdens nodes on bilateral hands) present. No swelling. Normal range of motion. Comments: Digits and nails were normal. See homunculus. Joints had a normal ROM and normal alignment. Skin: General: Skin is warm and dry. Findings: No rash. Neurological: General: No focal deficit present. Mental Status: She is alert and oriented to person, place, and time. Psychiatric: Mood and Affect: Mood normal. Swollen Joint Count: Swollen: 0 Tender Joint Count: Tender: 9 Patient global assessment: Patient Global: --/10 Rapid 3 score: 08/17 CDAI: 11 Assessment/Plan Seropositive RA -Continue Xeljanz ER 11 mg daily -Continue HCQ 200 mg/day -update imaging today 2. 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 - Monitoring labs from 07/31/24 WNL - PRN oral Medrol Dosepak for IA symptoms with food (To be use it for RA not OA joints symptoms) - PRN Tylenol AR 650 mg TID - PRN Voltaren gel QID 4. Chronic foot pain -encouraged pt to see podiatry RTC 4 months The patient was counseled about diagnostic results, instruction for management, risk factors reduction, prognosis, compliance with visits and treatment, risks and benefits of treatments options. Prior notes (by external physicians) and results were reviewed by me with independent interpretation of labs and imaging. My note will be sent to PCP and other consulting physicians. documented in this encounter Plan of Treatment Upcoming Encounters Date Type Department Care Team (Late st Contact Info) Description 01/01/2025 9:40 AM EDT Office Visit [facility] [address] [place] [address] Mark Zurita MD [address] [facility] [address] [place] [address] 01/21/2025 12:50 PM EST Office [facility] [address] [place] [address] Lisa Fowler APRN [address] [place] [id number] 04/01/2025 9:00 AM EST Appointment [facility] [address] [place] [id number] 04/01/2025 10:00 AM EST Office Visit [facility] [address] [place] [address] Candido Fitzgerald MD [address] [place] [id number] documented as of this encounter Results * XR Foot Left 3+ Views (09/17/2024 4:08 PM EDT) Anatomical Region Laterality Modality Lower Extremities, Foot Left Digital Radiography Impressions 09/17/2024 4:31 PM EDT Bilateral hand/wrist: No new or worsening erosions of the bilateral hands and wrists. Similar erosive changes as described above. Right foot: No new erosions. Prior erosive changes as described above. Left foot: Questionable new erosions versus subchondral cysts involving the third proximal phalanx base seen only on the oblique view. Prior erosive changes as described above. CRITICAL RESULT: No. COMMUNICATION: Per this written report. Drafted by Leeann Cohen MD on 09/17/2024 4:23 PM Final report signed by Leeann Cohen MD on 09/17/2024 4:31 PM Narrative 09/17/2024 4:31 PM EDT CLINICAL INDICATION: bilateral foot pain, evaluation for inflammatory changes. TECHNIQUE: XR FOOT LEFT 3+ VIEWS, XR HAND WRIST BILATERAL 2 VIEWS, XR FOOT RIGHT 3+ VIEWS COMPARISON: Radiographs from 04/03/2021 FINDINGS: Right hand/wrist: No acute fracture or dislocation. Similar erosive changes of the thumb and index finger metacarpal heads with MCP joint space narrowing. Diffuse sotr-bd-eorlzaod interphalangeal joint space narrowing. Carpal rows are intact. No soft tissue swelling. Left hand/wrist: No acute fracture. Similar radial subluxation of the thumb MCP joint. Similar erosive changes of the thumb metacarpal head. Diffuse dncx-au-wdfnbqax interphalangeal joint space narrowing. Carpal rows are intact. Similar appearance of the ulnar styloid with questionable erosions versus subchondral cyst. No soft tissue swelling. Right foot: Similar erosive changes of the great toe and third metatarsal head, as well as the third proximal phalanx base. No acute fracture or dislocation. No significant soft tissue swelling. Hallux valgus. No new erosions. Interphalangeal joint space narrowing. No soft tissue swelling. Left foot: Similar erosion involving the left great toe distal phalanx base medially, and the third metatarsal head. Questionable new erosions versus subchondral cysts involving the third proximal phalanx base seen only on the oblique view. No acute fracture or dislocation. No soft tissue swelling. Procedure Note Leeann Cohen MD - 09/17/2024 CLINICAL INDICATION: bilateral foot pain, evaluation for inflammatory changes. TECHNIQUE: XR FOOT LEFT 3+ VIEWS, XR HAND WRIST BILATERAL 2 VIEWS, XR FOOT RIGHT 3+VIEWS COMPARISON: Radiographs from 04/03/2021 FINDINGS: Right hand/wrist: No acute fracture or dislocation. Similar erosivechanges of the thumb and index finger metacarpal heads with MCP jointspace narrowing. Diffuse vsuw-si-ltqihxry interphalangeal joint spacenarrowing. Carpal rows are intact. No soft tissue swelling. Left hand/wrist: No acute fracture. Similar radial subluxation of thethumb MCP joint. Similar erosive changes of the thumb metacarpal head.Diffuse lask-uu-uqlgzwur interphalangeal joint space narrowing. Carpalrows are intact. Similar appearance of the ulnar styloid with questionableerosions versus subchondral cyst. No soft tissue swelling. Right foot: Similar erosive changes of the great toe and third metatarsalhead, as well as the third proximal phalanx base. No acute fracture ordislocation. No significant soft tissue swelling. Hallux valgus. No newerosions. Interphalangeal joint space narrowing. No soft tissueswelling. Left foot: Similar erosion involving the left great toe distal phalanxbase medially, and the third metatarsal head. Questionable new erosionsversus subchondral cysts involving the third proximal phalanx base seenonly on the oblique view. No acute fracture or dislocation. No soft tissueswelling. IMPRESSION: Bilateral hand/wrist: No new or worsening erosions of the bilateral handsand wrists. Similar erosive changes as described above. Right foot: No new erosions. Prior erosive changes as described above. Left foot: Questionable new erosions versus subchondral cysts involvingthe third proximal phalanx base seen only on the oblique view. Priorerosive changes as described above. CRITICAL RESULT: No. COMMUNICATION: Per this written report. Drafted by Leeann Cohen MD on 09/17/2024 4:23 PM Final report signed by Leeann Cohen MD on 09/17/2024 4:31 PM Lisa Fowler V [employer] IMG XR PROCEDURES Final R esult * XR Foot Right 3+ Views (09/17/2024 4:08 PM EDT) Anatomical Region Laterality Modality Lower Extremities, Foot Right Digital Radiography Impressions 09/17/2024 4:31 PM EDT Bilateral hand/wrist: No new or worsening erosions of the bilateral hands and wrists. Similar erosive changes as described above. Right foot: No new erosions. Prior erosive changes as described above. Left foot: Questionable new erosions versus subchondral cysts involving the third proximal phalanx base seen only on the oblique view. Prior erosive changes as described above. CRITICAL RESULT: No. COMMUNICATION: Per this written report. Drafted by Leeann Cohen MD on 09/17/2024 4:23 PM Final report signed by Leeann Cohen MD on 09/17/2024 4:31 PM Narrative 09/17/2024 4:31 PM EDT CLINICAL INDICATION: bilateral foot pain, evaluation for inflammatory changes. TECHNIQUE: XR FOOT LEFT 3+ VIEWS, XR HAND WRIST BILATERAL 2 VIEWS, XR FOOT RIGHT 3+ VIEWS COMPARISON: Radiographs from 04/03/2021 FINDINGS: Right hand/wrist: No acute fracture or dislocation. Similar erosive changes of the thumb and index finger metacarpal heads with MCP joint space narrowing. Diffuse jnzb-xe-wybqtyxu interphalangeal joint space narrowing. Carpal rows are intact. No soft tissue swelling. Left hand/wrist: No acute fracture. Similar radial subluxation of the thumb MCP joint. Similar erosive changes of the thumb metacarpal head. Diffuse wtid-uw-utpwmbbs interphalangeal joint space narrowing. Carpal rows are intact. Similar appearance of the ulnar styloid with questionable erosions versus subchondral cyst. No soft tissue swelling. Right foot: Similar erosive changes of the great toe and third metatarsal head, as well as the third proximal phalanx base. No acute fracture or dislocation. No significant soft tissue swelling. Hallux valgus. No new erosions. Interphalangeal joint space narrowing. No soft tissue swelling. Left foot: Similar erosion involving the left great toe distal phalanx base medially, and the third metatarsal head. Questionable new erosions versus subchondral cysts involving the third proximal phalanx base seen only on the oblique view. No acute fracture or dislocation. No soft tissue swelling. Procedure Note Leeann Cohen MD - 09/17/2024 CLINICAL INDICATION: bilateral foot pain, evaluation for inflammatory changes. TECHNIQUE: XR FOOT LEFT 3+ VIEWS, XR HAND WRIST BILATERAL 2 VIEWS, XR FOOT RIGHT 3+VIEWS COMPARISON: Radiographs from 04/03/2021 FINDINGS: Right hand/wrist: No acute fracture or dislocation. Similar erosivechanges of the thumb and index finger metacarpal heads with MCP jointspace narrowing. Diffuse hozr-hc-rbbvhgqv interphalangeal joint spacenarrowing. Carpal rows are intact. No soft tissue swelling. Left hand/wrist: No acute fracture. Similar radial subluxation of thethumb MCP joint. Similar erosive changes of the thumb metacarpal head.Diffuse bysv-zu-zaoawxih interphalangeal joint space narrowing. Carpalrows are intact. Similar appearance of the ulnar styloid with questionableerosions versus subchondral cyst. No soft tissue swelling. Right foot: Similar erosive changes of the great toe and third metatarsalhead, as well as the third proximal phalanx base. No acute fracture ordislocation. No significant soft tissue swelling. Hallux valgus. No newerosions. Interphalangeal joint space narrowing. No soft tissueswelling. Left foot: Similar erosion involving the left great toe distal phalanxbase medially, and the third metatarsal head. Questionable new erosionsversus subchondral cysts involving the third proximal phalanx base seenonly on the oblique view. No acute fracture or dislocation. No soft tissueswelling. IMPRESSION: Bilateral hand/wrist: No new or worsening erosions of the bilateral handsand wrists. Similar erosive changes as described above. Right foot: No new erosions. Prior erosive changes as described above. Left foot: Questionable new erosions versus subchondral cysts involvingthe third proximal phalanx base seen only on the oblique view. Priorerosive changes as described above. CRITICAL RESULT: No. COMMUNICATION: Per this written report. Drafted by Leeann Cohen MD on 09/17/2024 4:23 PM Final report signed by Leeann Cohen MD on 09/17/2024 4:31 PM Lisa Fowler V [employer] IMG XR PROCEDURES Final R esult * XR Hand and Wrist Bilateral 2 Views (09/17/2024 4:08 PM EDT) Anatomical Region Laterality Modality Hand, Wrist Bilateral Digital Radiogra phy Impressions 09/17/2024 4:31 PM EDT Bilateral hand/wrist: No new or worsening erosions of the bilateral hands and wrists. Similar erosive changes as described above. Right foot: No new erosions. Prior erosive changes as described above. Left foot: Questionable new erosions versus subchondral cysts involving the third proximal phalanx base seen only on the oblique view. Prior erosive changes as described above. CRITICAL RESULT: No. COMMUNICATION: Per this written report. Drafted by Leeann Cohen MD on 09/17/2024 4:23 PM Final report signed by Leeann Cohen MD on 09/17/2024 4:31 PM Narrative 09/17/2024 4:31 PM EDT CLINICAL INDICATION: bilateral foot pain, evaluation for inflammatory changes. TECHNIQUE: XR FOOT LEFT 3+ VIEWS, XR HAND WRIST BILATERAL 2 VIEWS, XR FOOT RIGHT 3+ VIEWS COMPARISON: Radiographs from 04/03/2021 FINDINGS: Right hand/wrist: No acute fracture or dislocation. Similar erosive changes of the thumb and index finger metacarpal heads with MCP joint space narrowing. Diffuse enka-dv-xpdnktfj interphalangeal joint space narrowing. Carpal rows are intact. No soft tissue swelling. Left hand/wrist: No acute fracture. Similar radial subluxation of the thumb MCP joint. Similar erosive changes of the thumb metacarpal head. Diffuse zwqx-wl-wwapaozk interphalangeal joint space narrowing. Carpal rows are intact. Similar appearance of the ulnar styloid with questionable erosions versus subchondral cyst. No soft tissue swelling. Right foot: Similar erosive changes of the great toe and third metatarsal head, as well as the third proximal phalanx base. No acute fracture or dislocation. No significant soft tissue swelling. Hallux valgus. No new erosions. Interphalangeal joint space narrowing. No soft tissue swelling. Left foot: Similar erosion involving the left great toe distal phalanx base medially, and the third metatarsal head. Questionable new erosions versus subchondral cysts involving the third proximal phalanx base seen only on the oblique view. No acute fracture or dislocation. No soft tissue swelling. Procedure Note Leeann Cohen MD - 09/17/2024 CLINICAL INDICATION: bilateral foot pain, evaluation for inflammatory changes. TECHNIQUE: XR FOOT LEFT 3+ VIEWS, XR HAND WRIST BILATERAL 2 VIEWS, XR FOOT RIGHT 3+VIEWS COMPARISON: Radiographs from 04/03/2021 FINDINGS: Right hand/wrist: No acute fracture or dislocation. Similar erosivechanges of the thumb and index finger metacarpal heads with MCP jointspace narrowing. Diffuse qcjr-vw-cqkrufau interphalangeal joint spacenarrowing. Carpal rows are intact. No soft tissue swelling. Left hand/wrist: No acute fracture. Similar radial subluxation of thethumb MCP joint. Similar erosive changes of the thumb metacarpal head.Diffuse isok-ve-jaqejptc interphalangeal joint space narrowing. Carpalrows are intact. Similar appearance of the ulnar styloid with questionableerosions versus subchondral cyst. No soft tissue swelling. Right foot: Similar erosive changes of the great toe and third metatarsalhead, as well as the third proximal phalanx base. No acute fracture ordislocation. No significant soft tissue swelling. Hallux valgus. No newerosions. Interphalangeal joint space narrowing. No soft tissueswelling. Left foot: Similar erosion involving the left great toe distal phalanxbase medially, and the third metatarsal head. Questionable new erosionsversus subchondral cysts involving the third proximal phalanx base seenonly on the oblique view. No acute fracture or dislocation. No soft tissueswelling. IMPRESSION: Bilateral hand/wrist: No new or worsening erosions of the bilateral handsand wrists. Similar erosive changes as described above. Right foot: No new erosions. Prior erosive changes as described above. Left foot: Questionable new erosions versus subchondral cysts involvingthe third proximal phalanx base seen only on the oblique view. Priorerosive changes as described above. CRITICAL RESULT: No. COMMUNICATION: Per this written report. Drafted by Leeann Cohen MD on 09/17/2024 4:23 PM Final report signed by Leeann Cohen MD on 09/17/2024 4:31 PM Lisa Perkins Edward RUBION IMG XR PROCEDURES Final R esult documented in this encounter Visit Diagnoses Diagnosis Seropositive rheumatoid arthritis of multiple sites (CMS/HCC)- Primary High risk medication use Long-term use of immunosuppressant medication Seropositive rheumatoid arthritis of multiple sites (CMS/HCC) High risk medication use Long-term use of immunosuppressant medication documented in this encounter Additional Health Concerns Assessment Noted Time A fall risk assessment has been complete d for the patient 09/17/2024 3:19 PM EDT A Body Mass Index follow-up plan has been documented for the patient 09/17/2024 3:40 PM EDT documented as of this encounter Care Teams Crusher Loader Operator Relationship Specialty Start Date End Date Cali Snyder APRN [address] [place] [address] PCP - General 01/09/24 Nico Moncada MD [address] [place] [address] Referring Physician Cardiology 12/21/21 Elba Alves DO [address] [address] Resident 06/13/24 documented as of this encounter
--- OUTSIDE RECORDS SUMMARY | 2024-09-17 15:51 | XMS_ITS | Encounter Summary ---
Author Organization Healthcare Address [address] [place] [address] Care Team Providers Care Welcome Wagon Hostess Name Role Phone Nico Moncada MD Unavailable [phone] Cali Snyder APRN Primary Care Provider [phone] Elba Alves DO Unavailable [phone] Encounter Details Date Type Department Care Team (Latest Contact Info) Description 09/17/2024 3:51 PM EDT - 09/17/2024 11:59 PM EDT Hospital Encounter [place] [facility] [address] [place] [address] Seropositive rheumatoid arthritis of multiple sites (CMS/HCC); High risk medication use; Long-term use of immunosuppressant medication Discharge Disposition: Home or Self Care Social [...] documented as of this encounter Functional Status documented as of this encounter Medications at Time of Discharge [...] 25 MCG (1000 UT) capsule daily. 10/25/2019 doxycycline (Vibramycin) 100 MG capsule Take 1 capsule twice a day by oral route for 10 days. 09/14/2024 estradiol (Estrace) 0.1 MG/GM vaginal cream USING FINGER TECHNIQUE DAILY FOR 2 WEEKS AND THEN TWICE WEEKLY VAGINALLY 10/17/2023 fluticasone (Flonase) 50 MCG/ACT nasal spray SHAKE LIQUID AND USE 1 SPRAY IN EACH NOSTRIL DAILY NEEDED FOR ALLERGY SYMPTOMS 03/29/2024 Fluticasone Furoate-Vilanter ol (Breo Ellipta) 100-25 MCG/ACT aerosol powder Inhale 1 puff. hydrocortisone 0.5 % cream APPLY TOPICALLY TO THE AFFECTED AREA TWICE DAILY NEEDED FOR RASH hydroxychloroqui ne (Plaquenil) 200 MG tabletIndication s:Seropositive rheumatoid arthritis of multiple sites (CMS/HCC) Take 1 tablet by mouth daily. 30 tablet 5 09/17/2024 metoprolol tartrate (Lopressor) 25 MG tablet Take 0.5 tablets by mouth 2 times a day. 03/05/2021 Multiple Vitamin (MULTIVITAMINS PO) Take by mouth. neomycin-polymyx in-dexamethasone (Maxitrol) 3.5-33967-5.1 ophthalmic suspension 09/05/2023 nystatin (Mycostatin) 279915 UNIT/ML suspension 09/13/2024 ondansetron (Zofran) 4 MG tablet Take 1 tablet by mouth every 8 hours as needed for nausea or vomiting. 03/29/2024 oxybutynin XL (Ditropan-XL) 10 MG 24 hr tablet Take 1 tablet by mouth daily. 10/18/2023 pramipexole (Mirapex) 0.125 MG tablet TAKE 1 TABLET BY MOUTH NIGHTLY FOR RESTLESS LEGS 07/07/2020 predniSONE (Deltasone) 5 MG tablet Take 1-3 tabs as needed for breakthrough pain 30 tablet 2 09/17/2024 Tofacitinib Citrate ER (Xeljanz XR) 11 MG tablet sustained-releas e 24 hourIndications: Seropositive rheumatoid arthritis of multiple sites (CMS/HCC) Take 1 tablet by mouth daily. 30 tablet 4 09/17/2024 documented as of this encounter Plan of Treatment Upcoming Encounters Date Type Department Care Team (Late st Contact Info) Description 01/01/2025 9:40 AM EDT Office Visit [facility] Gynecology [address] [place] [address] Mark Zurita MD [address] [facility] [address] [place] [address] 01/21/2025 12:50 PM EST Office Visit [place] [facility] [address] [place] [address] Lisa Leon, JUANJOSE [address] [place] [address] 04/01/2025 9:00 AM EST Appointment [facility] Rad[facility] [address] [place] [address] 04/01/2025 10:00 AM EST Office Visit [facility] [address] [place] [address] Candido Fitzgerald MD [address] [place] [address] documented as of this encounter Procedures Procedure Name Priority Date/Time Associated Diagnosis Comments XR HAND WRIST BILATERAL 2 VIEWS Routine 09/17/2024 4:08 PM EDT Seropositive rheumatoid arthritis of multiple sites ([facility]) High risk medication use Long-term use of immunosuppressant medication XR FOOT RIGHT 3+ VIEWS Routine 09/17/2024 4:08 PM EDT Seropositive rheumatoid arthritis of multiple sites ([facility]) High risk medication use Long-term use of immunosuppressant medication XR FOOT LEFT 3+ VIEWS Routine 09/17/2024 4:08 PM EDT Seropositive rheumatoid arthritis of multiple sites ([facility]) High risk medication use Long-term use of immunosuppressant medication documented in this encounter Results * XR Foot Left [...] heads with MCP joint space narrowing. Diffuse xpbb-me-vqybisgj interphalangeal joint space narrowing. Carpal rows are intact. No soft tissue swelling. Left hand/wrist: No acute fracture. Similar radial subluxation of the thumb MCP joint. Similar erosive changes of the thumb metacarpal head. Diffuse ivqy-da-hruphdzz interphalangeal joint space narrowing. Carpal rows are [...] metacarpal heads with MCP jointspace narrowing. Diffuse urme-do-azdjtbss interphalangeal joint spacenarrowing. Carpal rows are intact. No soft tissue swelling. Left hand/wrist: No acute fracture. Similar radial subluxation of thethumb MCP joint. Similar erosive changes of the thumb metacarpal head.Diffuse wuer-ge-ftqpobbm interphalangeal joint space narrowing. Carpalrows are intact. [...] Cohen MD on 09/17/2024 4:31 PM Lisa Leon COVER STITCH MACHINE OPERATOR IMG XR PROCEDURES Final R esult * [...] heads with MCP joint space narrowing. Diffuse qyba-fq-mynbeswe interphalangeal joint space narrowing. Carpal rows are intact. No soft tissue swelling. Left hand/wrist: No acute fracture. Similar radial subluxation of the thumb MCP joint. Similar erosive changes of the thumb metacarpal head. Diffuse pcis-dq-spavpvod interphalangeal joint space narrowing. Carpal rows are [...] metacarpal heads with MCP jointspace narrowing. Diffuse uzwf-jf-dbphswrv interphalangeal joint spacenarrowing. Carpal rows are intact. No soft tissue swelling. Left hand/wrist: No acute fracture. Similar radial subluxation of thethumb MCP joint. Similar erosive changes of the thumb metacarpal head.Diffuse lapj-ic-oalsehry interphalangeal joint space narrowing. Carpalrows are intact. [...] Cohen MD on 09/17/2024 4:31 PM Lisa Leon COVER STITCH MACHINE OPERATOR IMG XR PROCEDURES Final R esult * [...] heads with MCP joint space narrowing. Diffuse yghd-rn-pmupkkkt interphalangeal joint space narrowing. Carpal rows are intact. No soft tissue swelling. Left hand/wrist: No acute fracture. Similar radial subluxation of the thumb MCP joint. Similar erosive changes of the thumb metacarpal head. Diffuse eovw-yd-hpmiosmy interphalangeal joint space narrowing. Carpal rows are [...] metacarpal heads with MCP jointspace narrowing. Diffuse mwyg-ym-wkqbzblk interphalangeal joint spacenarrowing. Carpal rows are intact. No soft tissue swelling. Left hand/wrist: No acute fracture. Similar radial subluxation of thethumb MCP joint. Similar erosive changes of the thumb metacarpal head.Diffuse mebb-xf-kpuyjejh interphalangeal joint space narrowing. Carpalrows are intact. [...] Leeann oChen MD on 09/17/2024 4:31 PM Lisa Gregorio Leon APRN IMG XR PROCEDURES Final R esult documented in this encounter Visit Diagnoses Diagnosis Seropositive rheumatoid arthritis of multiple sites ([facility]) High risk medication use Long-term use of immunosuppressant medication documented in this encounter Additional Health Concerns Assessment Noted Time A fall risk assessment has been complete d for the patient 09/17/2024 3:19 PM EDT A Body Mass Index follow-up plan has been documented for the patient 09/17/2024 3:40 PM EDT documented as of this encounter Care Teams Welcome Wagon Hostess Relationship Specialty Start Date End Date Cali Snyder APRN [address] [place], [place] [id number] PCP - General 01/09/24 Nico Moncada MD [address] [address] Referring Physician Cardiology 12/21/21 Elba Alves DO [address] [place] [facility] [address] [place] [address] Resident 06/13/24 documented as of this encounter
--- OUTSIDE RECORDS SUMMARY | 2024-10-01 09:20 | XMS_ITS | Encounter Summary ---
Author Organization Healthcare Address [address] [place] [address] Care Team Providers Care Commercial Housekeeper Name Role Phone Nico Moncada MD Unavailable [phone] Cali Snyder APRN Primary Care Provider [phone] Elba Alves DO Unavailable [phone] Reason for Referral * Imaging (Routine) - Closed Specialty Diagnoses / Procedures Referred By Norma webb Referred To Contact Radiology Diagnoses Lung nodule Procedures CT Chest wo IV Contrast Candido Fitzgerald MD [address] [address] Phone: tel: fax: Referral ID Status Reason Start Date Expiration Date Visits Re quested Visits Authorized [id number] Closed 07/02/2024 01/01/2026 1 1 Reason for Visit * Imaging (Routine) - Closed Specialty Diagnoses / Procedures Referred By Norma webb Referred To Contact Radiology Diagnoses Lung nodule Procedures CT Chest wo IV Contrast Candido Fitzgerald MD [address] [address] Phone: tel: fax: Referral ID Status Reason Start Date Expiration Date Visits Re quested Visits Authorized [id number] Closed 07/02/2024 01/01/2026 1 1 Encounter Details Date Type Department Care Team (Latest Contact Info) Description 10/01/2024 9:20 AM EDT - 10/01/2024 11:59 PM EDT Hospital Encounter [facility] [address] [place] [address] Lung nodule Discharge Disposition: Home or Self [...] PO) Take by mouth. neomycin-polymyx in-dexamethasone (Maxitrol) 3.5-64173-9.1 ophthalmic suspension 09/05/2023 nystatin (Mycostatin) 733452 UNIT/ML suspension 09/13/2024 ondansetron (Zofran) 4 MG [...] Gynecology [address] [place] [address] Mark Zurita MD [address] [place] [address] 01/21/2025 12:50 PM EST Office Visit [facility] [address] [place] [address] Lisa Leon, DOOR REPAIRMAN [address] [place] [address] 04/01/2025 9:00 AM EST Appointment [facility] [address] [place] [address] 04/01/2025 10:00 AM EST Office Visit [facility] [address] [place] [address] Candido Fitzgerald MD [address] [place] [address] documented as of this encounter [...] as of this encounter Care Teams Commercial Housekeeper Relationship Specialty Start Date End Date Cali Snyder APRN [address] [place] [address] PCP - General 01/09/24 Nico Moncada MD [facility] [address] [address] Referring Physician Cardiology 12/21/21 Elba Alves DO [address] [place] [address] Resident 06/13/24 documented as of this encounter
--- OUTSIDE RECORDS SUMMARY | 2024-10-01 10:15 | XMS_ITS | Encounter Summary ---
Author Organization Healthcare Address [address] [place] [address] Care Team Providers Care Animal Physiology Teacher Name Role Phone Nico Moncada MD Unavailable [phone] Cali Snyder APRN Primary Care Provider [phone] Elba Alves DO Unavailable [phone] Reason for Referral * Imaging (Routine) - Pending Review Specialty Diagnoses / Procedures Referred By Norma webb Referred To Contact Radiology Diagnoses Lung nodule Procedures CT Chest wo IV Contrast Candido Fitzgerald MD [address] [address] Phone: tel: fax: Referral ID Status Reason Start Date Expiration Date V isits Requested Visits Authorized [id number] Pending Review 10/01/2024 04/02/2026 1 1 Reason for Visit * Reason Comments Follow-up Encounter Details Date Type Department Care Team ([facility] Contact Info) Description 10/01/2024 10:15 AM EDT Office Visit [facility] [address] [place] [address] Candido Fitzgerald MD [address] [address] Lung nodule Social History Tobacco [...] from the original note were not included. [facility] Department of Surgery Section of Thoracic [...] DANIELLE Zuniga 10/01/24 10:50 AM Cosigned by Cnadido Fitzgerald MD at 10/05/2024 8:44 AM EDT Associated attestation - Candido Fitzgerald MD - 10/05/2024 8:44 AM EDT I attest to being involved in more than half the total time in patient care. documented in this encounter Plan of Treatment Upcoming Encounters Date Type Department Care Team ([facility] st Contact Info) Description 01/01/2025 9:40 AM EDT Office Visit [facility] Gynecology 800 [facility] [address] [place] [address] Mark Zurita MD 800 [facility] [address] Madhuri [facility] [address] [place] [address] 01/21/2025 12:50 PM EST Office Visit [place] [facility] [address] [place] [address] Lisa Leon, PAPER BALER [address] [place] [address] 04/01/2025 9:00 AM EST Appointment [facility] G Radiology [address] [place] [address] 04/01/2025 10:00 AM EST Office Visit [facility] Respiratory [address] [facility], 2nd [place] [address] Candido Fitzgerald MD [address] [place] [address] Scheduled Orders Name Type Priority Associated Diagnoses [...] documented as of this encounter Care Teams Animal Physiology Teacher Relationship Specialty Start Date End Date Cali Snyder, JUANJOSE [address] [place] [address] PCP - General 01/09/24 Nico Moncada MD [address] [address] Referring Physician Cardiology 12/21/21 Elba Alves DO [address] [address] Resident 06/13/24 documented as of this encounter
--- OUTSIDE RECORDS SUMMARY | 2024-10-31 12:44 | XMS_ITS | Encounter Summary ---
Author Organization Healthcare Address [address] [place] [address] Care Team Providers Care Banking Teacher Name Role Phone Nico Moncada MD Unavailable [phone] Cali Snyder APRN Primary Care Provider [phone] Elba Alves DO Unavailable [phone] Encounter Details Date Type Department Care Team (Late st Contact Info) Description 10/04/2024 Telephone [place] [facility] [address], [address] [place] [address] Gloria Beavers, RN CH-VASCULAR & INTERVENTIONAL RADIOLOGY [...] Upcoming Encounters Date Type Department Care Team ([facility] st Contact Info) Description 01/01/2025 9:40 AM EDT Office Visit [facility] Gynecology [address] [place] [address] Mark Zurita MD [address] [facility] [address] [place] [address] 01/21/2025 12:50 PM EST Office Visit [place] [facility] [address] [place] [address] Lisa Leon APRN [address] [place] [address] 04/01/2025 9:00 AM EST Appointment [facility] Radiology [address] [place] [address] 04/01/2025 10:00 AM EST Office Visit [facility] Head, Neck & Respiratory [address] [place] [address] Candido Fitzgerald MD [address] [place] [address] documented as of this encounter Visit Diagnoses [...] Date End Date Cali Snyder APRN [address] [place] [address] PCP - General 01/09/24 Nico Moncada MD [address] [address] Referring Physician Cardiology 12/21/21 Elba Alves DO [address] [place] [address] Resident 06/13/24 documented as of this encounter
--- OUTSIDE RECORDS SUMMARY | 2024-10-31 12:44 | XMS_ITS | Encounter Summary ---
Author Organization Healthcare Address [address] [place] [address] Care Team Providers Care Bus Inspector Name Role Phone Nico Moncada MD Unavailable [phone] Cali Snyder APRN Primary Care Provider [phone] Elba Alves DO Unavailable [phone] Encounter Details Date Type Department Care [...] [address] [place] [address] Mark Zurita MD [address] [place] [address] 01/21/2025 12:50 PM EST Office Visit [place] [facility] [address] [place] [address] Lisa Leon, JUANJOSE [address] [place] [address] 04/01/2025 9:00 AM EST Appointment [facility] Radiology [address] [place] [address] 04/01/2025 10:00 AM EST Office Visit [facility] Head, Neck & Respiratory [address] [place] [address] Candido Fitzgerald MD [address] [place] [address] documented as of this encounter Visit Diagnoses Not on filedocumented in this encounter Additional Health Concerns Assessment Noted Time A fall risk assessment has been complete d for the patient 10/01/2024 10:28 AM EDT A Body Mass Index follow-up plan has been documented for the patient 10/05/2024 8:54 AM EDT documented as of this encounter Care Teams Bus Inspector Relationship Specialty Start Date End Date Cali Snyder, DELIVERY STOCK CLERK [address] [place] [address] PCP - General 01/09/24 Nico Moncada MD [address] [place] [address] Referring Physician Cardiology 12/21/21 Elba Alves DO [address] [place], [place] [address] Resident 06/13/24 documented as of this encounter
--- OUTSIDE RECORDS SUMMARY | 2024-10-31 12:44 | XMS_ITS | Encounter Summary ---
Author Organization Healthcare Address [address] [place] [address] Care Team Providers Care Corn Sheller Operator Name Role Phone Nico Moncada MD Unavailable [phone] Cali Snyder APRN Primary Care Provider [phone] Elba Alves DO Unavailable [phone] Encounter Details Date Type Department Care Team (Late st Contact Info) Description 10/16/2024 Telephone [facility] Head, Neck & Respiratory [address] [facility], 2nd [place] [address] Nakia Junior, RN AMB-HEAD NECK AND RESPIRATORY [...] Upcoming Encounters Date Type Department Care Team ([facility] st Contact Info) Description 01/01/2025 9:40 AM EDT Office Visit [facility] Gynecology [address] [place] [address] Mark Zurita MD [address] [facility] [address] [place] [address] 01/21/2025 12:50 PM EST Office Visit [place] [facility] [address] [place] [address] Lisa Leon, AIRLINE PILOT/FIRST OFFICER [address] [place] [address] 04/01/2025 9:00 AM EST Appointment [facility] Radiology [address] [place] [address] 04/01/2025 10:00 AM EST Office Visit [facility] Head, Neck & Respiratory [address] [place] [address] Candido Fitzgerald MD [address] [place] [address] documented as of this encounter Visit Diagnoses Not on filedocumented in this encounter Additional Health Concerns Assessment Noted Time A fall risk assessment has been complete d for the patient 10/01/2024 10:28 AM EDT A Body Mass Index follow-up plan has been documented for the patient 10/05/2024 8:54 AM EDT documented as of this encounter Care Teams Corn Sheller Operator Relationship Specialty Start Date End Date Cali Snyder APRN [address] [place] [address] PCP - General 01/09/24 Nico Moncada MD [address] [address] Referring Physician Cardiology 12/21/21 Elba Alves DO [address] [address] Resident 06/13/24 documented as of this encounter
--- OUTSIDE RECORDS SUMMARY | 2024-10-31 12:44 | XMS_ITS | Encounter Summary ---
Author Organization [facility] Address [address] [place] [address] Care Team Providers Care Crepe Machine Operator Name Role Phone Nico Moncada MD Unavailable [phone] Cali Snyder APRN Primary Care Provider [phone] Elba Alves DO Unavailable [phone] Encounter Details Date Type Department Care Team (Late st Contact Info) Description 09/17/2024 Telephone [place] [facility] [address] [place] [address] [place] [address] Social History Tobacco Use Types Packs/Day Years [...] EDT Office Visit [facility] Gynecology [address] [facility] [address] [place] [address] Mark Zurita MD [address] [facility] [address] [place] [address] 01/21/2025 12:50 PM EST Office Visit [place] [facility] [address] [place] [address] Lisa Leon, MANGA ARTIST [address] [facility] [address] [place] [address] 04/01/2025 9:00 AM EST Appointment [facility] Radiology [address] [place] [address] 04/01/2025 10:00 AM EST Office Visit [facility] Head, Neck & Respiratory [address] [facility], 2nd [place] [address] Candido Fitzgerald MD [address] [place] [address] documented as of this encounter Visit Diagnoses Not on filedocumented in this encounter Additional Health Concerns Assessment Noted Time A fall risk assessment has been complete d for the patient 09/17/2024 3:19 PM EDT A Body Mass Index follow-up plan has been documented for the patient 09/17/2024 3:40 PM EDT documented as of this encounter Care Teams Crepe Machine Operator Relationship Specialty Start Date End Date Cali Snyder APRN [address] [place] [address] PCP - General 01/09/24 Nico Moncada MD [address] [address] Referring Physician Cardiology 12/21/21 Elba Alves DO [facility] [address] [address] Resident 06/13/24 documented as of this encounter
--- OUTSIDE RECORDS SUMMARY | 2024-10-31 12:44 | XMS_ITS | Encounter Summary ---
Author Organization Healthcare Address [address] [place] [address] Care Team Providers Care Manager Urology Name Role Phone Nico Moncada MD Unavailable [phone] Cali Snyder APRN Primary Care Provider [phone] Elba Alves DO Unavailable [phone] Encounter Details Date Type Department Care Team ([facility] Contact Info) Description 10/16/2024 Orders Only [facility] Head, Neck & Respiratory [address] [facility], 2nd [place] [address] Nakia Junior, RN AMB-HEAD NECK AND RESPIRATORY [...] Upcoming Encounters Date Type Department Care Team ([facility] Contact Info) Description 01/01/2025 9:40 AM EDT Office Visit [facility] Gynecology [address] [facility] [address] [place] [address] Mark Zurita MD [address] [facility] [address] [place] [address] 01/21/2025 12:50 PM EST Office Visit [place] [facility] [address] [place] [address] Lisa Leon APRN [address] [facility] [address] [place] [address] 04/01/2025 9:00 AM EST Appointment [facility] Radiology [address] [place] [address] 04/01/2025 10:00 AM EST Office Visit [facility] Head, Neck & Respiratory [address] [facility], 2nd [place] [address] Candido Fitzgerald MD [address] [facility] [address] [place] [address] documented as of this encounter Visit Diagnoses Not on filedocumented in this encounter Additional Health Concerns Assessment Noted Time A fall risk assessment has been complete d for the patient 10/01/2024 10:28 AM EDT A Body Mass Index follow-up plan has been documented for the patient 10/05/2024 8:54 AM EDT documented as of this encounter Care Teams Manager Urology Relationship Specialty Start Date End Date Cali Snyder APRN [address] [place] [address] PCP - General 01/09/24 Nico Moncada MD [address] [facility] [address] [place] [address] Referring Physician Cardiology 12/21/21 Elba Alves DO [address] [facility] [address] [place] [id number] Resident 06/13/24 documented as of this encounter
--- OUTSIDE RECORDS SUMMARY | 2024-10-31 12:44 | XMS_ITS | Clinical Summary ---
Author Organization [facility] [place] [facility] Address [address] [place] [address] Phone Care Team Providers Care Journeyman Machinist Name Role Phone Unavailable Primary Care Provider [...]
--- OUTSIDE RECORDS SUMMARY | 2024-10-31 12:44 | XMS_ITS | Clinical Summary ---
Author Organization Healthcare Address [address] [place] [address] Care Team Providers Care Tattooer Name Role Phone Nico Moncada MD Unavailable [phone] Clai Snyder APRN Primary Care Provider [phone] Elba Alves DO Unavailable [phone] Allergies Active Allergy Reactions Criticality Noted [...] VAGINALLY 4 Active neomycin-polymy javier-dexamethaso ne (Maxitrol) 3.5-86934-2.1 ophthalmic suspension 4 Active oxybutynin XL (Ditropan-XL) [...] DAILY NEEDED FOR RASH Active nystatin (Mycostatin) 234468 UNIT/ML suspension 5 Active hydroxychloroqu ine (Plaquenil) [...] [facility] Respiratory [address] [facility], [address] [place] [phone] Nakia Junior, RN 10/16/2024 Orders Only [facility] Respiratory 800 [facility], [address] [place] [phone] Nakia Junior, RN 10/04/2024 Telephone [facility] Medicine Specialties [address], [address] [place] [address] Gloria Beavers RN 10/01/2024 10:15 AM EDT Office Visit [facility] Respiratory 800 [facility], [address] [place] [address] Candido Fitzgerald MD Lung nodule 10/01/2024 9:20 AM EDT - 10/01/2024 11:59 PM EDT Hospital Encounter [facility] Radiology [address] [place] [address] Lung nodule Discharge Disposition: Home or Self Care 10/01/2024 Travel 09/19/2024 Results Follow-Up [facility] Medicine Specialties [address], 2nd [place] [address] Lisa Leon, JUANJOSE 09/17/2024 3:51 PM EDT - 09/17/2024 11:59 PM EDT Hospital Encounter [facility] Radiology [address], 1st [place] [address] Seropositive rheumatoid arthritis of multiple sites (CMS/HCC); High risk medication use; Long-term use of immunosuppressant medication Discharge Disposition: Home or Self Care 09/17/2024 3:20 PM EDT Office Visit [facility] Specialties [facility] [address], [address] [place] [address] Lisa Leon APRN Seropositive rheumatoid arthritis of multiple sites ([facility]) (Primary Dx); High risk medication use; Long-term use of immunosuppressant medication 09/17/2024 Telephone [facility] Specialties [address] [place] [address], [address] [place] [address] Lori Garcia 09/17/[address], [address] [place] [address] Shauna Montemayor, PharmD Seropositive rheumatoid arthritis of multiple sites ([facility]) 09/17/2024 Travel 08/29/2024 11:00 AM EDT Office Visit [facility] Gynecology [address] [place] [address] Venancio Duran MD Severe vulvar dysplasia, histologically confirmed (Primary Dx) 08/29/2024 Travel 08/17/2024 Results Follow-Up [facility] Gynecology [address] [place] [address] Venancio Duran MD 08/17/[address], [address] [place] [address] Shauna Montemayor, PharmD Seropositive rheumatoid arthritis of multiple sites ([facility]) 08/09/2024 3:11 PM EDT Anesthesia Event [facility] A OPERATING ROOM [address] [place] [address] Gely Major CRNA, Kortney Weldon MD 08/09/2024 2:45 PM EDT - 08/09/2024 4:45 PM EDT Surgery [facility] OPERATING ROOM [address] [place] [address] Venancio Duran MD SPV [70216 (CPT )] 08/09/2024 1:19 PM EDT - 08/09/2024 6:00 PM EDT Hospital Encounter [facility] OPERATING ROOM [address] [place] [address] Venancio Duran MD Severe vulvar dysplasia, histologically confirmed Discharge Disposition: Home or Self Care 08/09/2024 Travel 08/02/2024 3:30 PM EDT [facility] [address], 1st [place] [address] 08/02/2024 Travel 07/31/2024 11:50 AM EDT Clinical Support [facility] Gynecology [address] [place] [address] Carcinoma in situ of vulva 07/31/2024 10:30 AM EDT Office Visit [facility] Gynecology [address] [place] [address] Mark Zurita MD Severe vulvar dysplasia, histologically [...] [address] [place] [address] Mark Zurita MD [address] [facility] [address] [place] [address] 01/21/2025 12:50 PM EST Office Visit [facility] Medicine Specialties [address], [address]nd [place] [address] Lisa Leon, DRAWER IN PLAIN LOOM [address] [place] [address] 04/01/2025 9:00 AM EST Appointment [facility] Radiology [address] [place] [address] 04/01/2025 10:00 AM EST Office Visit [facility] Respiratory [address], 2nd [place] [address] Candido Fitzgerald MD [address] [facility] [address] [place] [address] Health Maintenance Due Date Last [...] - Risk 60-74 years 1-dose series) 2012 [id number] Vaccine (2 - Deb risk series) 06/25/2020 [...] ANESTHESIA PLACEHOLDER Routine 08/09/2024 3:19 PM EDT FL AN ELECTIVE SUPRAGLOTTIC AIRWAY Routine 08/09/2024 3:19 PM EDT FL PART SIMPLE REMV VULVA 08/09/2024 2:59 PM [...] heads with MCP joint space narrowing. Diffuse xxcr-rv-msgbyvgo interphalangeal joint space narrowing. Carpal rows are intact. No soft tissue swelling. Left hand/wrist: No acute fracture. Similar radial subluxation of the thumb MCP joint. Similar erosive changes of the thumb metacarpal head. Diffuse mtkl-dp-djwzornz interphalangeal joint space narrowing. Carpal rows are [...] metacarpal heads with MCP jointspace narrowing. Diffuse xjuz-nr-lamvhzil interphalangeal joint spacenarrowing. Carpal rows are intact. No soft tissue swelling. Left hand/wrist: No acute fracture. Similar radial subluxation of thethumb MCP joint. Similar erosive changes of the thumb metacarpal head.Diffuse pawv-zy-ozrgokye interphalangeal joint space narrowing. Carpalrows are intact. [...] MD on 09/17/2024 4:31 PM Lisa Leon DRAWER IN PLAIN LOOM IMG XR PROCEDURES Final R esult * [...] heads with MCP joint space narrowing. Diffuse frsw-cu-djlyvmcw interphalangeal joint space narrowing. Carpal rows are intact. No soft tissue swelling. Left hand/wrist: No acute fracture. Similar radial subluxation of the thumb MCP joint. Similar erosive changes of the thumb metacarpal head. Diffuse rzwl-aj-mffrcrqq interphalangeal joint space narrowing. Carpal rows are [...] metacarpal heads with MCP jointspace narrowing. Diffuse trcx-zm-xwtpmtqg interphalangeal joint spacenarrowing. Carpal rows are intact. No soft tissue swelling. Left hand/wrist: No acute fracture. Similar radial subluxation of thethumb MCP joint. Similar erosive changes of the thumb metacarpal head.Diffuse jihm-tf-xginbxcs interphalangeal joint space narrowing. Carpalrows are intact. [...] MD on 09/17/2024 4:31 PM Lisa Leon DRAWER IN PLAIN LOOM IMG XR PROCEDURES Final R esult * [...] heads with MCP joint space narrowing. Diffuse fnyr-wk-aosplerj interphalangeal joint space narrowing. Carpal rows are intact. No soft tissue swelling. Left hand/wrist: No acute fracture. Similar radial subluxation of the thumb MCP joint. Similar erosive changes of the thumb metacarpal head. Diffuse xuxd-zc-eomjyevy interphalangeal joint space narrowing. Carpal rows are [...] metacarpal heads with MCP jointspace narrowing. Diffuse sakk-mx-phopwwpx interphalangeal joint spacenarrowing. Carpal rows are intact. No soft tissue swelling. Left hand/wrist: No acute fracture. Similar radial subluxation of thethumb MCP joint. Similar erosive changes of the thumb metacarpal head.Diffuse upbt-sg-vmtygwng interphalangeal joint space narrowing. Carpalrows are intact. [...] MD on 09/17/2024 4:31 PM Lisa Leon DRAWER IN PLAIN LOOM IMG XR PROCEDURES Final R esult * Surgical Pathology Exam (08/09/2024 3:58 PM EDT) Case Report Surgical Pathology Case: [id number] Authorizing Provider: Venancio Duran MD Collected: 08/09/2024 2988 Ordering Location: [facility] OPERATING ROOM Received: 08/09/2024 1630 Pathologist: Jay Wong MD Specimen: Other (specify site), Perineal Body Lesion 08/15/2024 3:11 PM EDT [facility] Final Diagnosis A. VULVA, PERINEAL BODY LESION, EXCISION: - HIGH-GRADE SQUAMOUS INTRAEPITHELIAL LESION (HSIL, OLIVIA II, MODERATE DYSPLASIA). - THE HIGH-GRADE DYSPLASIA EXTENDS TO THE ANTERIOR AND POSTERIOR TIPS. 08/15/2024 3:11 PM EDT [facility] at 1511 EDT Clinical Information Severe vulvar dysplasia, histologically confirmed [D07.1] 08/15/2024 3:11 PM EDT [facility] Gross Description A. PERINEAL [...] DANIELLE Hassan (ASCP) 08/15/2024 3:11 PM EDT [facility] Note: A resident was involved in the service. I attest I examined the relevant preparations for the specimens and confirmed the diagnosis or interpretation. 08/15/2024 3:11 PM EDT [facility] Tissue Topography unknown / Unknown 08/09/2024 3:58 PM EDT 08/09/2024 4:30 PM EDT Comment:Pre-op diagnosis: Severe vulvar dysplasia, histologically confirmed [D07.1] us Venancio Duran MD LAB PATHOLOGY ORDERABLES F inal Result [facility] [address] [place] [address] * FL AN ELECTIVE SUPRAGLOTTIC AIRWAY, PB ANESTHESIA PLACEHOLDER (08/09/2024 3:19 PM EDT) Narrative Gely Major CRNA, DNP - 08/09/2024 3:19 PM EDT Gely Major CRNA, DNP 08/09/2024 3:32 PM Airway Date/Time: 08/09/2024 3:19 PM Reason: elective Airway not difficult General Information and Staff Patient location during procedure: OR MILL ROLL OPERATOR: Gely Major CRNA, DAVID Performed: MILL ROLL OPERATOR Patient Condition Indications for airway management: anesthesia [...] LAB HEMATOLOGY METHOD 07/31/2024 1:08 PM EDT [facility] RBC Count 4.45 3.90 - 5.20 10*6/uL LAB HEMATOLOGY METHOD 07/31/2024 1:08 PM EDT [facility] HGB 13.0 11.2 - 15.7 g/dL LAB HEMATOLOGY METHOD 07/31/2024 1:08 PM EDT [facility] HCT 38.5 34.0 - 45.0 % LAB HEMATOLOGY METHOD 07/31/2024 1:08 PM EDT [facility] Platelet Count 175 155 - 369 10*3/uL LAB HEMATOLOGY METHOD 07/31/2024 1:08 PM EDT [facility] MCV 87 79 - 98 fL LAB HEMATOLOGY METHOD 07/31/2024 1:08 PM EDT [facility] MCH 29.2 26.0 - 32.0 pg LAB HEMATOLOGY METHOD 07/31/2024 1:08 PM EDT [facility] MCHC 33.8 30.7 - 35.5 g/dL LAB HEMATOLOGY METHOD 07/31/2024 1:08 PM EDT [facility] RDW 14.1 11.5 - 14.5 % LAB HEMATOLOGY METHOD 07/31/2024 1:08 PM EDT [facility] MPV 11.1 8.8 - 12.5 fL LAB HEMATOLOGY METHOD 07/31/2024 1:08 PM EDT [facility] nRBC 0.0 <=0.0 per 100 WBCs LAB HEMATOLOGY METHOD 07/31/2024 1:08 PM EDT [facility] Differential Type Automated LAB HEMATOLOGY METHOD 07/31/2024 1:08 PM EDT [facility] Neutrophils % 66 % LAB HEMATOLOGY METHOD 07/31/2024 1:08 PM EDT [facility] Lymphocytes % 23 % LAB HEMATOLOGY METHOD 07/31/2024 1:08 PM EDT [facility] Monocytes % 9 % LAB HEMATOLOGY METHOD 07/31/2024 1:08 PM EDT [facility] Eosinophils % 1 % LAB HEMATOLOGY METHOD 07/31/2024 1:08 PM EDT [facility] Basophils % 1 % LAB HEMATOLOGY METHOD 07/31/2024 1:08 PM EDT [facility] Immature Granulocytes % 0 % LAB HEMATOLOGY METHOD 07/31/2024 1:08 PM EDT [facility] Neutrophils Absolute 3.84 1.60 - 6.10 10*3/uL LAB HEMATOLOGY METHOD 07/31/2024 1:08 PM EDT [facility] Lymphocytes Absolute 1.37 1.20 - 3.90 10*3/uL LAB HEMATOLOGY METHOD 07/31/2024 1:08 PM EDT [facility] Monocytes Absolute 0.51 0.30 - 0.90 10*3/uL LAB HEMATOLOGY METHOD 07/31/2024 1:08 PM EDT [facility] Eosinophils Absolute 0.07 0.00 - 0.50 10*3/uL LAB HEMATOLOGY METHOD 07/31/2024 1:08 PM EDT [facility] Basophils Absolute 0.04 0.00 - 0.10 10*3/uL LAB HEMATOLOGY METHOD 07/31/2024 1:08 PM EDT [facility] Immature Granulocytes Absolute 0.02 0.00 - 0.06 10*3/uL LAB HEMATOLOGY METHOD 07/31/2024 1:08 PM EDT [facility] Blood Venous blood specimen / Unknown Venipuncture / Unknown 07/31/2024 12:03 PM EDT 07/31/2024 12:52 PM EDT [facility] - 07/31/2024 1:08 PM EDT Therapeutic decision making should be based on absolute values, rather than percentages. us Mark Zurita MD LAB BLOOD ORDERABLES Final Res ult [facility] [address] [place] [address] * Hemoglobin A1c (07/31/2024 12:03 PM EDT) Hemoglobin A1c 5.3 <5.7 % 07/31/2024 2:16 PM EDT [facility] Blood Venous blood specimen / Unknown Venipuncture / Unknown 07/31/2024 12:03 PM EDT 07/31/2024 12:52 PM EDT Narrative [facility] - 07/31/2024 2:16 PM [...] ORDERABLES Final Res ult Performing Organization Address [facility] Co de Phone Number [facility] [address] [place] [address] * Comprehensive Metabolic Panel, Plasma (07/31/2024 12:03 PM EDT) Glucose, Plasma 90 74 - 99 mg/dL 07/31/2024 1:09 PM EDT [facility] BUN, Plasma 12 8 - 23 mg/dL 07/31/2024 1:09 PM EDT [facility] Creatinine, Plasma 0.86 0.60 - 1.10 mg/dL 07/31/2024 1:09 PM EDT [facility] BUN/Creatinine Ratio 14 07/31/2024 1:09 PM EDT [facility] Sodium, Plasma 138 136 - 145 mmol/L 07/31/2024 1:09 PM EDT [facility] Potassium, Plasma 4.1 3.6 - 4.9 mmol/L 07/31/2024 1:09 PM EDT [facility] Chloride, Plasma 104 97 - 107 mmol/L 07/31/2024 1:09 PM EDT [facility] CO2, Plasma 26 22 - 29 mmol/L 07/31/2024 1:09 PM EDT [facility] Anion Gap 8 6 - 16 mmol/L 07/31/2024 1:09 PM EDT [facility] Total Calcium, Plasma 9.5 8.9 - 10.2 mg/dL 07/31/2024 1:09 PM EDT [facility] Total Protein 6.7 6.3 - 7.9 g/dL 07/31/2024 1:09 PM EDT [facility] Albumin, Plasma 4.2 3.5 - 5.2 g/dL 07/31/2024 1:09 PM EDT [facility] AST, Plasma 23 10 - 35 U/L 07/31/2024 1:09 PM EDT [facility] ALT, Plasma 16 10 - 35 U/L 07/31/2024 1:09 PM EDT [facility] Alkaline Phosphatase, Plasma 63 46 - 142 U/L 07/31/2024 1:09 PM EDT [facility] Total Bilirubin, Plasma 0.3 0.2 - 1.1 mg/dL 07/31/2024 1:09 PM EDT [facility] eGFRcr 72.3 mL/min/1.7 3m*2 07/31/2024 1:09 PM EDT [facility] Comment:Reported eGFRcr in m L/min/1.73m2 is based the CKD-EPI 2020 equation that does not use a race coefficient. Blood Venous blood specimen / Unknown Venipuncture / Unknown 07/31/2024 12:03 PM EDT 07/31/2024 12:39 PM EDT us Mark Zurita MD LAB BLOOD ORDERABLES Final Res ult [facility] [address] [place] [address] * (ABNORMAL) Hepatitis C Antibody (04/03/2021 4:35 PM EST) Hepatitis C Antibody Positive( A) Negative 04/03/2021 8:34 PM EST [facility] Comment:This specimen is gee ng sent for confirmation by RT-PCR. Blood Venous blood specimen / Unknown Venipuncture / Unknown 04/03/2021 4:35 PM EST 04/03/2021 4:35 PM EST [facility] LAB BLOOD ORDERABLES Final [facility] [address] [place] [address] from Last 3 Months or Most Recently Relevant to Health Maintenance Insurance [employer] Care Teams Tattooer Relationship Specialty Start Date End Date Cali Snyder APRN [address] [place] [address] PCP - General 01/09/24 Nico Moncada MD [address] [address] Referring Physician Cardiology 12/21/21 Elba Alves DO [address] [facility] [address] [place] [address] Resident 06/13/24
--- OUTSIDE RECORDS SUMMARY | 2024-10-31 12:44 | XMS_ITS | Encounter Summary ---
Author Organization Healthcare Address [address] [place] [address] Care Team Providers Care Aircraft Cleaning Supervisor Name Role Phone Nico Moncada MD Unavailable [phone] Cali Snyder APRN Primary Care Provider [phone] Elba Alves DO Unavailable [phone] Encounter Details Date Type Department Care Team (Late st Contact Info) Description 09/17/2024 Refill [facility] Medicine Specialties [address] [place] [address] Shauna Montemayor, PharmD Seropositive rheumatoid arthritis of multiple sites ([facility]) Social History Tobacco Use Types Packs/Day Years [...] [address] [place] [address] Mark Zurita MD [address] [facility] [address] [place] [address] 01/21/2025 12:50 PM EST Office Visit [place] [facility] Medicine Special[facility] [address] [place] [address] Lisa Leon, HEAD ATHLETIC TRAINER [address] [place] [address] 04/01/2025 9:00 AM EST Appointment [facility] Radiology [address] [place] [address] 04/01/2025 10:00 AM EST Office Visit [facility] Head, Neck & Respiratory [address] [place] [address] Candido Fitzgerald MD [address] [place] [address] documented as of this encounter Visit Diagnoses Diagnosis Seropositive rheumatoid arthritis of multiple sites (CMS/HCC) documented in this encounter Additional Health Concerns Assessment Noted Time A fall risk assessment has been complete d for the patient 09/17/2024 3:19 PM EDT A Body Mass Index follow-up plan has been documented for the patient 09/17/2024 3:40 PM EDT documented as of this encounter Care Teams Aircraft Cleaning Supervisor Relationship Specialty Start Date End Date Cali Snyder APRN [address] [place] [address] PCP - General 01/09/24 Nico Moncada MD [address] [address] Referring Physician Cardiology 12/21/21 Elba Alves DO [address] [address] Resident 06/13/24 documented as of this encounter
--- OUTSIDE RECORDS SUMMARY | 2024-10-31 12:44 | XMS_ITS | Encounter Summary ---
Author Organization Healthcare Address [address] [place] [address] Care Team Providers Care Chief Of Harbor Patrol Name Role Phone Nico Moncada MD Unavailable [phone] Cali Snyder APRN Primary Care Provider [phone] Elba Alves DO Unavailable [phone] Encounter Details Date Type Department Care [...] [address] [place] [address] Mark Zurita MD [address] [facility] [address] [place] [address] 01/21/2025 12:50 PM EST Office Visit [place] [facility] Medicine Specialties [address], [address] [place] [address] Lisa Leon, JUANJOSE [address] [place] [address] 04/01/2025 9:00 AM EST Appointment [facility] Radiology [address] [place] [address] 04/01/2025 10:00 AM EST Office Visit [facility] Head, Neck & Respiratory [address] [place] [address] Candido Fitzgerald MD [address] [place] [address] documented as of this encounter Visit Diagnoses Not on filedocumented in this encounter Additional Health Concerns Assessment Noted Time A fall risk assessment has been complete d for the patient 09/17/2024 3:19 PM EDT A Body Mass Index follow-up plan has been documented for the patient 09/17/2024 3:40 PM EDT documented as of this encounter Care Teams Chief Of Harbor Patrol Relationship Specialty Start Date End Date Cali Snyder, PULLER OVER [address] [place] [address] PCP - General 01/09/24 Nico Moncada MD [address] [place] [address] Referring Physician Cardiology 12/21/21 Elba Alves DO [address] [place] [address] [place] [address] Resident 06/13/24 documented as of this encounter
--- OUTSIDE RECORDS SUMMARY | 2024-10-31 12:44 | XMS_ITS | Encounter Summary ---
Author Organization Healthcare Address [address] [place] [address] Care Team Providers Care Seed Cleaning Manager Name Role Phone Nico Moncada MD Unavailable [phone] Cali Snyder APRN Primary Care Provider [phone] Elba Alves DO Unavailable [phone] Encounter Details Date Type Department Care Team (Late st Contact Info) Description 09/19/2024 Results Follow-Up [facility] [facility] Medicine Specialties [address] [place] [address] Lisa Leon APRN [address] [place] [address] Social History Tobacco Use Types [...] [address] [place] [address] Mark Zurita MD [address] [facility] [address] [place] [address] 01/21/2025 12:50 PM EST Office Visit [place] [facility] Medicine Specialties [address] [place] [address] Lisa Leon APRN [address] [place] [address] 04/01/2025 9:00 AM EST Appointment [facility] Radiology [address] [place] [address] 04/01/2025 10:00 AM EST Office Visit [facility] Head, Neck & Respiratory [address] [place] [address] Candido Fitzgerald MD [address] [place] [address] documented as of this encounter Visit Diagnoses Not on filedocumented in this encounter Additional Health Concerns Assessment Noted Time A fall risk assessment has been complete d for the patient 09/17/2024 3:19 PM EDT A Body Mass Index follow-up plan has been documented for the patient 09/17/2024 3:40 PM EDT documented as of this encounter Care Teams Seed Cleaning Manager Relationship Specialty Start Date End Date Cali Snyder APRN [address] [place] [address] PCP - General 01/09/24 Nico Moncada MD [address] [place] [address] Referring Physician Cardiology 12/21/21 Elba Alves DO 1210 [place] [facility] [address] [place] [address] Resident 06/13/24 documented as of this encounter
--- NOTE | 2024-10-31 13:00 | CA_ITS ---
FINAL REPORT TECHNIQUE: Sesay scale, color and spectral doppler images of the bilateral carotid arteries were obtained. CLINICAL HISTORY: Smoker, Afib, COPD, HTN, HLD FINDINGS: Peak systolic velocity in the right internal carotid artery is 134 cm/sec. The internal carotid to common carotid artery ratio is 2.3. There is ntss-px-jqtlrbcd plaque of the right common carotid artery and proximal internal carotid artery. Carotid artery stenosis measures 50-69%. The right vertebral artery is normal in direction. Peak systolic velocity in the left internal carotid artery is 146 cm/sec. The internal carotid to common carotid artery ratio is 1.75. There is no significant carotid artery stenosis and no significant plaque formation. The left vertebral artery is normal in direction. IMPRESSION: No significant carotid artery stenosis with no significant plaque on the left. 50-69% stenosis of the right carotid artery with qdas-qh-nppsdkrx plaque as above. Reviewed, Interpreted and Dictated by Kaila Licea MD Transcribed by Bernie Alonzo Authenticated and [facility]
--- OUTSIDE RECORDS SUMMARY | 2024-10-31 13:42 | XMS_ITS | CCD ---
Author Name Christin Thapa NP Address [address] [facility] [address] [place] [address] Phone Organization [facility] Phone Care Team Providers Care Senior Trial Attorney Name Role Phone Christin Thapa NP Primary Care Provider Unavaila ble Unavailable Chronic Care Management Unavaila ble Summary Purpose DataExchange Insurance Providers Payer name Policy type / Coverage type Covered constitution party ID Effective Begin Date Effective End Date [facility] [id number] Unknown Unknown Family history Father Diagnosis Age [...] School Graduate 05/20 Employment Unknown Retired from [email or web address] 06/13/2024 Tobacco history Unknown Former User 06/13/[address]: [id number] Never drinks alco hol 06/13/2024 Illegal/Recreational drug [...] Fill Instructions Lipitor 20 mg tablet RxNorm: 343522 Take 1 Tablet(s) Oral every day 07/31/19 25 026 Active Breo Ellipta 100 mcg-25 mcg/dose powder for inhalation RxNorm: 2738956 Inhale 1 Puff(s) Inhalation every day 07/31/19 25 025 Inactive Breo Ellipta 100 mcg-25 mcg/dose powder for inhalation RxNorm: 3817163 Inhale 1 Puff(s) Inhalation every day 06/14/19 25 025 Inactive Tofacitinib Citrate ER (Xeljanz XR) 11 MG tablet sustained-release 24 hour RxNorm: 3225005 Take 1 Tablet(s) Oral every day . 04/25/19 25 No Stop Date Active hydroxychloroquine (Plaquenil) 200 MG tablet RxNorm: 7507717 Take 1 Tablet(s) (200 mg) Oral every day . 01/09/20 24 No Stop Date Active oxybutynin XL (Ditropan-XL) 10 MG 24 hr tablet RxNorm: 351336 Take 1 Tablet(s) (10 mg) Oral every day . 10/18/19 24 No Stop Date Active estradiol (Estrace) 0.1 MG/GM vaginal cream RxNorm: 646369 USING FINGER TECHNIQUE DAILY FOR 2 WEEKS AND THEN TWICE WEEKLY VAGINALLY 10/17/19 24 No Stop Date Active krcumgvs-ckybwswwl-bt xamethasone (Maxitrol) 3.5-89451-2.1 ophthalmic suspension RxNorm: 586939 opht 09/05/19 24 025 Inactive predniSONE (Deltasone) 5 MG tablet RxNorm: 392186 Take 3 tablets for 5 days, then take 2 tablets for 5 days, then take 1 tablet for 5 days. 09/01/19 24 No Stop Date Active metoprolol tartrate (Lopressor) 25 MG tablet RxNorm: 502060 Take 0.5 tablets (12.5 mg) by mouth 2 (two) times a day. 03/05/20 21 No Stop Date Active albuterol 108 (90 Base) MCG/ACT inhaler RxNorm: 5018633 INHALE 2 PUFFS BY MOUTH EVERY 4 TO 6 HOURS NEEDED FOR SHORTNESS OF BREATH OR WHEEZING 10/03/19 21 No Stop Date Active atorvastatin (Lipitor) 20 MG tablet RxNorm: 862115 1 (one) time each day. 09/09/19 21 025 Inactive pramipexole (Mirapex) 0.125 MG tablet RxNorm: 510914 TAKE 1 TABLET BY MOUTH NIGHTLY FOR RESTLESS LEGS 07/08/19 21 No Stop Date Active alendronate (Fosamax) 70 MG tablet RxNorm: 621840 TAKE 1 TABLET BY MOUTH EVERY WEEK ON SAME DAY EACH WEEK 06/24/19 21 No Stop Date Active Medication Administered No Medication Administered data Procedures Procedure Codes Date Most recent systolic blood pressure 130 to 139 m m CPT-4: 3075F 06/13/2024 Most recent diastolic blood pressure < 80 mm hg CPT-4: 3078F 06/13/2024 MED LIST DOCD IN [facility] CPT-4: 1159F 06/13/2024 RVW MEDS BY RX/DR IN [facility] CPT-4: 1160F 2024 Functional Status Assessed CPT-4: 1170F 06/13 Screening for clinical depre ssion is negative, follow-up plan not required CPT-4: G8510 06/13/2024 Vital Signs Date Vital 06/13/2024 Blood Pressure 1: 138/70 Code: 8480-6 BMI: 20.1 Code: 44596-3 Heart Rate 1: 65 bpm Height: 5'3 Code: 8302-2 Respiratory Rate: 16 bpm SpO2: 98% Temperature: 36.4 (C) / 97.6 (F) Weight: 113 lbs 4 oz Code: 57028-0 Reason For Visit Reason For Visit Effective Dates Notes established patient visit 07/30/2024 new patient welcome visit 06/13/2024 Encounters Encounter Performer Location Location Address Codes Date () (EST PT) LOW COMPLEXITY TELEHEALTH VISIT Diagnosis: COPD (chronic obstructive pulmonary disease)[ICD10: J44.9] Diagnosis: Rheumatoid arthritis[ICD10: M06.9] Diagnosis: Hypertension[ICD10 : I10] [facility] [address] [facility] [place] [address] CPT-4: 66978 07/30/2024 ([id number]) Home or Residence Visit POLISHER IMPLANT - Moderate Level, 60 mins Diagnosis: COPD (chronic obstructive pulmonary disease)[ICD10: J44.9] Diagnosis: Rheumatoid arthritis[ICD10: M06.9] Diagnosis: Hypertension[ICD10 : I10] Diagnosis: Encounter for general adult medical examination without abnormal findings[ICD10: Z00.00] [facility] [address] [facility] [address] [email or web address] [address] CPT-4: 82202 06/13/2024 Plan of Care Planned Activity Notes Codes Status Date Visit Plan: This is a phone call only. Patient is in the [facility] and consents to treatment via telephone. [...] Appointment: Christin Thapa WPtel: [address] [facility] [address] [id number] ETV 07/30/2024 Patient Education: Patient Medication Summary [...] has quit for many years now. Her Hollow Tile Partition Erector gave her BREO to use but she [...] of care. 06/13/2024 Appointment: Christin Thapa WPtel: [facility] [address] 06/13/2024 Patient Education: Patient Medication Summary Completed 06/13/2024 Instructions Comment Date . This is a phone call only. Patient is in the [facility] and consents to treatment via telephone. [...] has quit for many years now. Her Hollow Tile Partition Erector gave her BREO to use but she [...]
--- OUTSIDE RECORDS SUMMARY | 2024-10-31 13:42 | XMS_ITS | CCD ---
Author Name Christin Thapa NP Address [address] [facility] [address] [place] [address] Phone Organization [facility] Phone Care Team Providers Care Barrel Lathe Operator Outside Name Role Phone Christin Thapa NP Primary Care Provider Unavaila ble Unavailable Chronic Care Management Unavaila ble Summary Purpose DataExchange Insurance Providers Payer name Policy type / Coverage type Covered democrat ID Effective Begin Date Effective End Date [id number] Unknown Unknown Family history Father Diagnosis Age [...] School Graduate 05/20 Employment Unknown Retired from [employer] 06/13/2024 Tobacco history Unknown Former User 06/13/[address]: [id number] Never drinks alco hol 06/13/2024 Illegal/Recreational drug [...] Fill Instructions Lipitor 20 mg tablet RxNorm: 768888 Take 1 Tablet(s) Oral every day 07/31/19 25 026 Active Breo Ellipta 100 mcg-25 mcg/dose powder for inhalation RxNorm: 5586331 Inhale 1 Puff(s) Inhalation every day 07/31/19 25 025 Inactive Breo Ellipta 100 mcg-25 mcg/dose powder for inhalation RxNorm: 4139475 Inhale 1 Puff(s) Inhalation every day 06/14/19 25 025 Inactive Tofacitinib Citrate ER (Xeljanz XR) 11 MG tablet sustained-release 24 hour RxNorm: 3650165 Take 1 Tablet(s) Oral every day . 04/25/19 25 No Stop Date Active hydroxychloroquine (Plaquenil) 200 MG tablet RxNorm: 8835073 Take 1 Tablet(s) (200 mg) Oral every day . 01/09/20 24 No Stop Date Active oxybutynin XL (Ditropan-XL) 10 MG 24 hr tablet RxNorm: 231068 Take 1 Tablet(s) (10 mg) Oral every day . 10/18/19 24 No Stop Date Active estradiol (Estrace) 0.1 MG/GM vaginal cream RxNorm: 135645 USING FINGER TECHNIQUE DAILY FOR 2 WEEKS AND THEN TWICE WEEKLY VAGINALLY 10/17/19 24 No Stop Date Active miaiorlc-rtyrksxtw-ii xamethasone (Maxitrol) 3.5-73381-7.1 ophthalmic suspension RxNorm: 030472 opht 09/05/19 24 025 Inactive predniSONE (Deltasone) 5 MG tablet RxNorm: 987760 Take 3 tablets for 5 days, then take 2 tablets for 5 days, then take 1 tablet for 5 days. 09/01/19 24 No Stop Date Active metoprolol tartrate (Lopressor) 25 MG tablet RxNorm: 314775 Take 0.5 tablets (12.5 mg) by mouth 2 (two) times a day. 03/05/20 21 No Stop Date Active albuterol 108 (90 Base) MCG/ACT inhaler RxNorm: 8612787 INHALE 2 PUFFS BY MOUTH EVERY 4 TO 6 HOURS NEEDED FOR SHORTNESS OF BREATH OR WHEEZING 10/03/19 21 No Stop Date Active atorvastatin (Lipitor) 20 MG tablet RxNorm: 296780 1 (one) time each day. 09/09/19 21 025 Inactive pramipexole (Mirapex) 0.125 MG tablet RxNorm: 472399 TAKE 1 TABLET BY MOUTH NIGHTLY FOR RESTLESS LEGS 07/08/19 21 No Stop Date Active alendronate (Fosamax) 70 MG tablet RxNorm: 997008 TAKE 1 TABLET BY MOUTH EVERY WEEK ON SAME DAY EACH WEEK 06/24/19 21 No Stop Date Active Medication Administered No Medication Administered data Procedures Procedure Codes Date Most recent systolic blood pressure 130 to 139 m m CPT-4: 3075F 06/13/2024 Most recent diastolic blood pressure < 80 mm hg CPT-4: 3078F 06/13/2024 MED LIST DOCD IN [facility] CPT-4: 1159F 06/13/2024 RVW MEDS BY RX/DR IN [facility] CPT-4: 1160F 2024 Functional Status Assessed CPT-4: 1170F 06/13 Screening for clinical depre ssion is negative, follow-up plan not required CPT-4: G8510 06/13/2024 Vital Signs Date Vital 06/13/2024 Blood Pressure 1: 138/70 Code: 8480-6 BMI: 20.1 Code: 35531-5 Heart Rate 1: 65 bpm Height: 5'3 Code: 8302-2 Respiratory Rate: 16 bpm SpO2: 98% Temperature: 36.4 (C) / 97.6 (F) Weight: 113 lbs 4 oz Code: 39489-6 Reason For Visit Reason For Visit Effective Dates Notes established patient visit 07/30/2024 new patient welcome visit 06/13/2024 Encounters Encounter Performer Location Location Address Codes Date () (EST PT) LOW COMPLEXITY TELEHEALTH VISIT Diagnosis: COPD (chronic obstructive pulmonary disease)[ICD10: J44.9] Diagnosis: Rheumatoid arthritis[ICD10: M06.9] Diagnosis: Hypertension[ICD10 : I10] [facility] [address] [facility] [place] [address] CPT-4: 24736 07/30/2024 ([id number]) Home or Residence Visit CROWD CONTROLLER - Moderate Level, 60 mins Diagnosis: COPD (chronic obstructive pulmonary disease)[ICD10: J44.9] Diagnosis: Rheumatoid arthritis[ICD10: M06.9] Diagnosis: Hypertension[ICD10 : I10] Diagnosis: Encounter for general adult medical examination without abnormal findings[ICD10: Z00.00] [facility] [address] [facility] [place] [address] CPT-4: 79405 06/13/2024 Plan of Care Planned Activity Notes Codes Status Date Visit Plan: This is a phone call only. Patient is in the [facility] and consents to treatment via telephone. [...] Appointment: Christin Thapa WPtel: [address] [facility] [address] [id number] ETV 07/30/2024 Patient Education: Patient Medication Summary [...] has quit for many years now. Her Foreign Diplomat gave her BREO to use but she [...] of care. 06/13/2024 Appointment: Christin Thapa WPtel: [facility] [address] 06/13/2024 Patient Education: Patient Medication Summary Completed 06/13/2024 Instructions Comment Date . This is a phone call only. Patient is in the [facility] and consents to treatment via telephone. [...] has quit for many years now. Her Foreign Diplomat gave her BREO to use but she [...]
--- NOTE | 2024-10-31 13:45 | CA_ITS ---
APPROVED REPORT EXAM: Comprehensive 2D, Doppler, and color-flow Echocardiogram Mechanical Manufacturing Engineer: Loretta Chang, DORETHA, RVS Ht: 5 ft 5 in Wt: 112lbs BSA: 1.55 BP: 152/45 mmHg Indications: PAF, Smoker, COPD, YANEZ, HLD 2D Dimensions Aortic Root 2.85 cm LA Volume 51.80 mL Left Atrium 2.73 cm LA Volume Index 33.40 mL/m2 (M/F) 16-34 RVID Base (AP4) 2.41 cm (M/F) 2.5-4.1 EF AP4 56.70 % LVOT 1.93 cm (M/F) 1.5-2.5 GL Strain -23.2 % M-Mode Dimensions RVDd 2.47 cm (0.9-2.6) LVDd 4.68 cm (3.5-5.7) Ao Diam 3.01 cm (2.0-3.7) LVDs 2.62 cm (3.5-5.7) IVSd 0.97 cm (0.6-1.1) PWd 0.78 cm (0.6-1.1) EF (Teich) 75.20% EPSs 0.28 cm FS 44.00% EDV (Teich) 101.30 mL TAPSE 1.51 (<1.7) ESV (Teich) 25.10 mL LV Diastology E Decel Time 119 (160-240 msec) E/A Ratio 1.56 MED E' 8.1 (>= 7 cm/sec) MED A' 10.10 cm/s E'/MED E' Ratio 10.12 (<= 14) LAT E' 10.2 (>= 10 cm/sec) LAT A' 6.20 cm/s E/LAT E' Ratio 8.04 (<= 14) Aortic Valve LVOT Max 102.0 (70-110 cm/s) BLAYNE Index 1.12 cm2/m2 LVOT VTI 25.88 cm AoV Peak Fredi. 167.0 (50-130 cm/s) AI PHT 653.00 ms AO Mean GR. 5.80 (<5 mmHg) AO VTI 43.5 (18-25 cm) BLAYNE (VTI) 1.74 (2.5-4.5 cm2) Mitral Valve MV E Max Fredi. 82.0 (40-130 cm/s) MV A Velocity 53.0 (40-130 cm/s) E/A Ratio 1.56 MV Decel. Time 119 (160-240 ms) Tricuspid Valve TR P. Velocity 273.00 cm/s RAP Estimate 10.00 mmHg RVSP 39.80 mmHg Left Ventricle The left ventricle is normal size. Left ventricular systolic function is normal. The left ventricular ejection fraction is within the normal range. There is normal left ventricular wall thickness. There is normal LV segmental wall motion. The left ventricular diastolic function is indeterminate. LVEF is 55% Right Ventricle The right ventricle is normal size. The right ventricular systolic function is normal. Atria The left atrium is moderately dilated. The right atrium is moderately dilated. There is no color Doppler evidence of interatrial shunt. Aortic Valve The aortic valve is mildly thickened. There is no hemodynamically significant aortic valvular stenosis. Mild to moderate aortic regurgitation is present. Mitral Valve The mitral valve is normal in structure. No evidence of mitral valve stenosis. Mild mitral regurgitation is present. Tricuspid Valve The tricuspid valve leaflets are thin and pliable. Mild tricuspid regurgitation. RVSP is 20-25 mmHg. Pulmonic Valve The pulmonary valve is grossly normal in structure. Mild pulmonic valve regurgitation is present. Great Vessels The aortic root is normal in size. IVC is normal in size and collapses >50% with inspiration. Pericardium There is no pericardial effusion. Other Information Study Quality: Fair Conclusion Normal biventricular systolic function. Biatrial dilation. Mild to moderate AI. Mild MR, mild TR, mild PI. Electronically signed by : Nati Mckeon MD 10/31/2024 15:14:15
== END 2024-10-31 23:59 | disposition home or self-care (01) ==
LOC: RT 12:37
PROVIDERS: PCP Family Medicine; Visit Provider Physician Assistant
DX: I08.8 Other rheumatic multiple valve diseases (principal); I11.9 Hypertensive heart disease without heart failure; I65.21 Occlusion and stenosis of right carotid artery; I25.10 Atherosclerotic heart disease of native coronary artery without angina pectoris; K55.1 Chronic vascular disorders of intestine; I48.0 Paroxysmal atrial fibrillation; I77.4 Celiac artery compression syndrome; E78.2 Mixed hyperlipidemia; F17.200 Nicotine dependence, unspecified, uncomplicated; J44.9 Chronic obstructive pulmonary disease, unspecified; Z95.1 Presence of aortocoronary bypass graft
CPT/HCPCS: 93306; 93880

== ENCOUNTER 2024-11-29 21:41 | Outpatient (CLI) | payer MEDICARE, SELFPAY ==
--- OUTSIDE RECORDS SUMMARY | 2020-01-26 06:00 | XMS_ITS | Encounter Summary ---
Author Organization [place] [address] Care Team Providers Care Steel Heater Name Role Phone Unavailable Primary Care Provider Unavailabl e Encounter Details Date Type Department Care Team (Late st Contact Info) Description 01/26/2020 5:00 AM EST Hospital Encounter [facility] Referral Lab [address] [phone] Haroon Cain MD [address] [place] [address] Social History Tobacco Use Types Packs/Day Years [...]
--- OUTSIDE RECORDS SUMMARY | 2024-10-01 09:20 | XMS_ITS | Encounter Summary ---
Author Organization Healthcare Address [address] [place] [address] Care Team Providers Care Supervisor Industrial Arts Education Name Role Phone Nico Moncada MD Unavailable [phone] Cali Snyder APRN Primary Care Provider [phone] Elba Alves DO Unavailable [phone] Reason for Referral * Imaging (Routine) - Closed Specialty Diagnoses / Procedures Referred By Norma webb Referred To Contact Radiology Diagnoses Lung nodule Procedures CT Chest wo IV Contrast Candido Fitzgerald MD [address] [address] Phone: tel: fax: Referral ID Status Reason Start Date Expiration Date Visits Re quested Visits Authorized [id number] Closed 07/02/2024 01/01/2026 1 1 Reason for Visit * Imaging (Routine) - Closed Specialty Diagnoses / Procedures Referred By Norma webb Referred To Contact Radiology Diagnoses Lung nodule Procedures CT Chest wo IV Contrast Candido Fitzgerald MD [address] [address] Phone: tel: fax: Referral ID Status Reason Start Date Expiration Date Visits Re quested Visits Authorized [id number] Closed 07/02/2024 01/01/2026 1 1 Encounter Details Date Type Department Care Team (Latest Contact Info) Description 10/01/2024 9:20 AM EDT - 10/01/2024 11:59 PM EDT Hospital Encounter [facility] [address] [place] [address] Lung nodule Discharge Disposition: Home or Self [...] PO) Take by mouth. neomycin-polymyx in-dexamethasone (Maxitrol) 3.5-10110-3.1 ophthalmic suspension 09/05/2023 nystatin (Mycostatin) [id number] UNIT/ML suspension 09/13/2024 ondansetron (Zofran) 4 MG [...] 01/01/2025 9:40 AM EDT Office Visit [facility] [address] [place] [address] Mark Zurita MD [address] [place] [address] 04/01/2025 9:00 AM EST Appointment [facility] [address] [place] [address] 04/01/2025 10:00 AM EST Office Visit [facility] [address] [place] [address] Candido Fitzgerald MD [address] [place] [address] 04/15/2025 3:20 PM EST Office Visit [place] [facility] [address] [place] [address] Lisa Leon, HEARING SCREENER [address] [place] [address] documented as of this encounter [...] documented as of this encounter Care Teams Supervisor Industrial Arts Education Relationship Specialty Start Date End Date Cali Snyder APRN [address] [place] [address] PCP - General 01/09/24 Nico Moncada MD [facility] [address] [address] Referring Physician Cardiology 12/21/21 Elba Alves DO [address] [place] [address] Resident 06/13/24 documented as of this encounter
--- OUTSIDE RECORDS SUMMARY | 2024-10-01 10:15 | XMS_ITS | Encounter Summary ---
Author Organization Healthcare Address [address] [place] [address] Care Team Providers Care Project Coordinator Name Role Phone Nico Moncada MD Unavailable [phone] Cali Snyder APRN Primary Care Provider [phone] Elba Alves DO Unavailable [phone] Reason for Referral * Imaging (Routine) - Pending Review Specialty Diagnoses / Procedures Referred By Norma webb Referred To Contact Radiology Diagnoses Lung nodule Procedures CT Chest wo IV Contrast Candido Fitzgerald MD [address] [address] Phone: tel: fax: Referral ID Status Reason Start Date Expiration Date V isits Requested Visits Authorized [id number] Pending Review 10/01/2024 04/02/2026 1 1 Reason for Visit * Reason Comments Follow-up Encounter Details Date Type Department Care Team ([facility] Contact Info) Description 10/01/2024 10:15 AM EDT Office Visit [facility] Respiratory [address] [place] [address] Candido Fitzgerald MD [address] [address] Lung nodule Social History Tobacco [...] from the original note were not included. [facility] Department of Surgery Section of Thoracic Surgery [...] EDT Office Visit [facility] Gynecology 800 [facility] [address] [place] [address] Mark Zurita MD [address] [facility] [address] [place] [address] 04/01/2025 9:00 AM EST Appointment [facility] G Radiology [address] [place] [address] 04/01/2025 10:00 AM EST Office Visit [facility] Respiratory [address] [place] [address] Candido Fitzgerald MD [address] [place] [address] 04/15/2025 3:20 PM EST Office Visit [place] [facility] [address] [place] [address] Lisa Leon APRN [address] [place] [address] Scheduled Orders Name Type Priority Associated Diagnoses [...] documented as of this encounter Care Teams Project Coordinator Relationship Specialty Start Date End Date Cali Snyder, JUANJOSE [address] [place] [address] PCP - General 01/09/24 Nico Moncada MD [address] [address] Referring Physician Cardiology 12/21/21 Elba Alves DO [address] [address] Resident 06/13/24 documented as of this encounter
--- OUTSIDE RECORDS SUMMARY | 2024-11-29 21:44 | XMS_ITS | Clinical Summary ---
Author Organization Healthcare Address [address] [place] [address] Care Team Providers Care Customs Manager Name Role Phone Nico Moncada MD Unavailable [phone] Cali Snyder APRN Primary Care Provider [phone] Elba Alves DO Unavailable [phone] Allergies Active Allergy Reactions Criticality Noted [...] VAGINALLY 4 Active neomycin-polymy javier-dexamethaso ne (Maxitrol) 3.5-37647-0.1 ophthalmic suspension 4 Active oxybutynin XL (Ditropan-XL) [...] DAILY NEEDED FOR RASH Active nystatin (Mycostatin) 157712 UNIT/ML suspension 5 Active hydroxychloroqu ine (Plaquenil) [...] [facility] [address] [facility], [address] [place] [phone] Nakia Junior, RN 10/16/2024 Orders Only [facility] [address] [facility], [address] [place] [phone] Nakia Junior, RN 10/04/2024 Telephone [facility] [address], [address] [place] [address] Gloria Beavers RN 10/01/2024 10:15 AM EDT Office Visit [facility] [address] [facility], [address] [place] [phone] Candido Fitzgerald MD Lung nodule 10/01/2024 9:20 AM EDT - 10/01/2024 11:59 PM EDT Hospital Encounter [facility] [address] [place] [address] Lung nodule Discharge Disposition: Home or Self Care 10/01/2024 Travel 09/19/2024 Results Follow-Up [facility] [address], [address] [place] [address] Lisa Leon, JUANJOSE 09/17/2024 3:51 PM EDT - 09/17/2024 11:59 PM EDT Hospital Encounter [facility] [address], [address] [place] [address] Seropositive rheumatoid arthritis of multiple sites (CMS/HCC); High risk medication use; Long-term use of immunosuppressant medication Discharge Disposition: Home or Self Care 09/17/2024 3:20 PM EDT Office Visit [facility] [address], [address] [place] [address] Lisa Leon APRN Seropositive rheumatoid arthritis of multiple sites ([facility]) (Primary Dx); High risk medication use; Long-term use of immunosuppressant medication 09/17/2024 Telephone [facility] [address], [address] [place] [phone] Lori Garcia 09/17/2024 Refill [facility] [address], [address] [place] [phone] Shauna Montemayor, PharmD Seropositive rheumatoid arthritis of multiple sites ([facility]) 09/17/2024 Travel 08/29/2024 11:00 AM EDT Office Visit [facility] [address] [place] [phone] Venancio Duran MD Severe vulvar dysplasia, histologically confirmed (Primary Dx) 08/29/2024 Travel from Last 3 Months Immunizations Immunization [...] Former Cigarettes 1 16 2 004 - 2019 Passive Smoke Exposure: Past Smokeless [...] Gynecology [address] [place] [phone] Mark Zurita MD [address] [place] [address] 04/01/2025 9:00 AM EST Appointment [facility] [address] [place] [address] 04/01/2025 10:00 AM EST Office Visit [facility] [address] [place] [address] Candido Fitzgerald MD [address] [place] [address] 04/15/2025 3:20 PM EST Office Visit [facility] [address], [address] [place] [address] Lisa Leon, CABINET PROFESSIONAL [address] [place] [address] Health Maintenance Due Date Last [...] - Risk 60-74 years 1-dose series) 2012 [id number] Vaccine (2 - Deb risk series) 06/25/2020 [...] medication use Long-term use of immunosuppressant medication HEPATITIS C ANTIBODY W/REFLEX TO HCV QUANT [...] Jennyfer Mitchell MD on 10/01/2024 11:29 AM us Candido Fitzgerald MD IMG CT PROCEDURES Final [...] heads with MCP joint space narrowing. Diffuse ehmg-mg-qjjxkjqg interphalangeal joint space narrowing. Carpal rows are intact. No soft tissue swelling. Left hand/wrist: No acute fracture. Similar radial subluxation of the thumb MCP joint. Similar erosive changes of the thumb metacarpal head. Diffuse sjmg-im-rsbhuuag interphalangeal joint space narrowing. Carpal rows are [...] metacarpal heads with MCP jointspace narrowing. Diffuse jepz-au-qzcdpjzt interphalangeal joint spacenarrowing. Carpal rows are intact. No soft tissue swelling. Left hand/wrist: No acute fracture. Similar radial subluxation of thethumb MCP joint. Similar erosive changes of the thumb metacarpal head.Diffuse owqj-ws-ojepsuyq interphalangeal joint space narrowing. Carpalrows are intact. [...] MD on 09/17/2024 4:31 PM Lisa Leon CABINET PROFESSIONAL IMG XR PROCEDURES Final R esult [...] heads with MCP joint space narrowing. Diffuse gohq-cf-dmfoazwb interphalangeal joint space narrowing. Carpal rows are intact. No soft tissue swelling. Left hand/wrist: No acute fracture. Similar radial subluxation of the thumb MCP joint. Similar erosive changes of the thumb metacarpal head. Diffuse hnaf-sp-ccazyies interphalangeal joint space narrowing. Carpal rows are [...] metacarpal heads with MCP jointspace narrowing. Diffuse lvto-xt-zzalaydz interphalangeal joint spacenarrowing. Carpal rows are intact. No soft tissue swelling. Left hand/wrist: No acute fracture. Similar radial subluxation of thethumb MCP joint. Similar erosive changes of the thumb metacarpal head.Diffuse nsie-wh-uxtjevuw interphalangeal joint space narrowing. Carpalrows are intact. [...] MD on 09/17/2024 4:31 PM Lisa Leon CABINET PROFESSIONAL IMG XR PROCEDURES Final R esult [...] heads with MCP joint space narrowing. Diffuse vcns-tz-cfgvzogr interphalangeal joint space narrowing. Carpal rows are intact. No soft tissue swelling. Left hand/wrist: No acute fracture. Similar radial subluxation of the thumb MCP joint. Similar erosive changes of the thumb metacarpal head. Diffuse degk-lx-nfceipwp interphalangeal joint space narrowing. Carpal rows are [...] metacarpal heads with MCP jointspace narrowing. Diffuse objs-ea-isbrqjqb interphalangeal joint spacenarrowing. Carpal rows are intact. No soft tissue swelling. Left hand/wrist: No acute fracture. Similar radial subluxation of thethumb MCP joint. Similar erosive changes of the thumb metacarpal head.Diffuse tdfs-np-afonvtig interphalangeal joint space narrowing. Carpalrows are intact. [...] IMG XR PROCEDURES Final R esult * (ABNORMAL) Hepatitis C Antibody (04/03/2021 4:35 PM EST) Hepatitis C Antibody Positive( A) Negative 04/03/2021 8:34 PM EST [facility] Comment:This specimen is gee ng sent for confirmation by RT-PCR. Blood Venous blood specimen / Unknown Venipuncture / Unknown 04/03/2021 4:35 PM EST 04/03/2021 4:35 PM EST us [facility] BLOOD ORDERABLES Final Resul t [facility] [address] [place] [address] from Last 3 Months or Most Recently Relevant to Health Maintenance Insurance [employer] Care Teams Customs Manager Relationship Specialty Start Date End Date Cali Snyder APRN [address] [place] [address] PCP - General 01/09/24 Nico Moncada MD [address] [facility] [address] [place] [address] Referring Physician Cardiology 12/21/21 Elba Alves DO [address] [place] [address] [place] [address] Resident 06/13/24
--- OUTSIDE RECORDS SUMMARY | 2024-11-29 21:45 | XMS_ITS | Encounter Summary ---
Author Organization Healthcare Address [address] [place] [address] Care Team Providers Care Logistics Manager Name Role Phone Nico Moncada MD Unavailable [phone] Cali Snyder APRN Primary Care Provider [phone] Elba Alves DO Unavailable [phone] Encounter Details Date Type Department Care Team (Late st Contact Info) Description 09/19/2024 Results Follow-Up [facility] [address], [address] [place] [address] Lisa Leon APRN [address] [place] [address] Social History Tobacco Use Types [...] [address] [place] [phone] Mark Zurita MD [address] [facility] [address] [place] [address] 04/01/2025 9:00 AM EST Appointment [facility] [address] [place] [address] 04/01/2025 10:00 AM EST Office Visit [facility] [address] [place] [phone] Candido Fitzgerald MD [address] [place] [phone] 04/15/2025 3:20 PM EST Office Visit [facility] [address] [place] [address] Lisa Leon APRN [address] [place] [phone] documented as of this encounter Visit Diagnoses Not on filedocumented in this encounter Additional Health Concerns Assessment Noted Time A fall risk assessment has been complete d for the patient 09/17/2024 3:19 PM EDT A Body Mass Index follow-up plan has been documented for the patient 09/17/2024 3:40 PM EDT documented as of this encounter Care Teams Logistics Manager Relationship Specialty Start Date End Date Cali Snyder APRN [address] [place] [address] PCP - General 01/09/24 Nico Moncada MD [address] [place] [address] Referring Physician Cardiology 12/21/21 Elba Alves DO [address] [place] [facility] [address] [place] [address] Resident 06/13/24 documented as of this encounter
--- OUTSIDE RECORDS SUMMARY | 2024-11-29 21:45 | XMS_ITS | Encounter Summary ---
Author Organization Healthcare Address [address] [place] [address] Care Team Providers Care Bi Data Architect Name Role Phone Nico Moncada MD Unavailable [phone] Cali Snyder APRN Primary Care Provider [phone] Elba Alves DO Unavailable [phone] Encounter Details Date Type Department Care [...] [address] [place] [address] Mark Zurita MD [address] [place] [address] 04/01/2025 9:00 AM EST Appointment [facility] Radiology [address] [place] [address] 04/01/2025 10:00 AM EST Office Visit [facility] Head, Neck & Respiratory [address] [place] [address] Candido Fitzgerald MD [address] [place] [address] 04/15/2025 3:20 PM EST Office Visit [place] [facility] [address], [address] [place] [address] Lisa Leon APRN [address] [place] [address] documented as of this encounter Visit Diagnoses Not on filedocumented in this encounter Additional Health Concerns Assessment Noted Time A fall risk assessment has been complete d for the patient 10/01/2024 10:28 AM EDT A Body Mass Index follow-up plan has been documented for the patient 10/05/2024 8:54 AM EDT documented as of this encounter Care Teams Bi Data Architect Relationship Specialty Start Date End Date Cali Snyder, INSTALLMENT DEALER [address] [place] [address] PCP - General 01/09/24 Nico Moncada MD [address] [place], [place] [phone] Referring Physician Cardiology 12/21/21 Elba Alves DO [address] [place] [address] Resident 06/13/24 documented as of this encounter
--- OUTSIDE RECORDS SUMMARY | 2024-11-29 21:45 | XMS_ITS | Encounter Summary ---
Author Organization Healthcare Address [address] [place] [address] Care Team Providers Care Lead Informatica Developer Name Role Phone Nico Moncada MD Unavailable [phone] Cali Snyder APRN Primary Care Provider [phone] Elba Alves DO Unavailable [phone] Encounter Details Date Type Department Care Team (Late st Contact Info) Description 10/04/2024 Telephone [place] [facility] [address], [address] [place] [address] Gloria Beavers, RN CH-VASCULAR & INTERVENTIONAL RADIOLOGY [...] Upcoming Encounters Date Type Department Care Team ([facility] Contact Info) Description 01/01/2025 9:40 AM EDT Office Visit [facility] Gynecology [address] [place] [address] Mark Zurtia MD [address] [facility] [facility] [address] [place] [address] 04/01/2025 9:00 AM EST Appointment [facility] Radiology [address] [place] [address] 04/01/2025 10:00 AM EST Office Visit Pav [facility] Head, Neck & Respiratory [address] [place] [address] Candido Fitzgerald MD [address] [facility] [address] [place] [address] 04/15/2025 3:20 PM EST Office Visit [place] [facility] [address] [place] [address] Lisa Leon APRN [address] [place] [address] documented as of this encounter Visit Diagnoses Not on filedocumented in this encounter Additional Health Concerns Assessment Noted Time A fall risk assessment has been complete d for the patient 10/01/2024 10:28 AM EDT A Body Mass Index follow-up plan has been documented for the patient 10/05/2024 8:54 AM EDT documented as of this encounter Care Teams Lead Informatica Developer Relationship Specialty Start Date End Date Cali Snyder APRN [address] [place] [address] PCP - General 01/09/24 Nico Moncada MD [address] [address] Referring Physician Cardiology 12/21/21 Elba Alves DO [address] [place] [address] Resident 06/13/24 documented as of this encounter
--- OUTSIDE RECORDS SUMMARY | 2024-11-29 21:45 | XMS_ITS | Clinical Summary ---
Author Organization [facility] [place] [facility] Address [address] [place] [address] Phone Care Team Providers Care Stencil Maker Name Role Phone Unavailable Primary Care Provider [...] Screening 2017 COVID-19 Vaccine (2023-2 5 season) 2024 Influenza Vaccine (#1) 2024 Hepatitis B Vaccine Aged Out No longe r eligible based on patient's age to complete this topic Meningococcal B Vaccine Aged Out No l onger eligible based on patient's age to complete this topic
--- OUTSIDE RECORDS SUMMARY | 2024-11-29 21:45 | XMS_ITS | Encounter Summary ---
Author Organization Healthcare Address [address] [place] [address] Care Team Providers Care Aerophysics Engineer Name Role Phone Nico Moncada MD Unavailable [phone] Cali Snyder APRN Primary Care Provider [phone] Elba Alves DO Unavailable [phone] Encounter Details Date Type Department Care Team (Late st Contact Info) Description 10/16/2024 Telephone Pav [facility] Head, Neck & Respiratory [address] [facility], 2nd [place] [address] Nakia Junior, RN AMB-HEAD NECK AND RESPIRATORY [...] Gynecology [address] [place] [address] Mark Zurita MD [address] [facility] [facility] [address] [place] [address] 04/01/2025 9:00 AM EST Appointment [facility] G Radiology [address] [place] [address] 04/01/2025 10:00 AM EST Office Visit [facility] Head, Neck & Respiratory [address], [address] [place] [address] Candido Fitzgerald MD [address] [place] [address] 04/15/2025 3:20 PM EST Office Visit [place] [facility] [address], [address] [place] [address] Lisa Leon APRN [address] [place] [address] documented as of this encounter Visit Diagnoses Not on filedocumented in this encounter Additional Health Concerns Assessment Noted Time A fall risk assessment has been complete d for the patient 10/01/2024 10:28 AM EDT A Body Mass Index follow-up plan has been documented for the patient 10/05/2024 8:54 AM EDT documented as of this encounter Care Teams Aerophysics Engineer Relationship Specialty Start Date End Date Cali Snyder APRN [address] [place] [address] PCP - General 01/09/24 Nico Moncada MD [address] [address] Referring Physician Cardiology 12/21/21 Elba Alves DO [address] [address] Resident 06/13/24 documented as of this encounter
--- OUTSIDE RECORDS SUMMARY | 2024-11-29 21:45 | XMS_ITS | Encounter Summary ---
Author Organization Healthcare Address [address] [place] [address] Care Team Providers Care Duty Officer Name Role Phone Nico Moncada MD Unavailable [phone] Cali Snyder APRN Primary Care Provider [phone] Elba Alves DO Unavailable [phone] Encounter Details Date Type Department Care Team ([facility] Contact Info) Description 10/16/2024 Orders Only Pav CC Head, Neck & Respiratory [address] [facility], [address]nd [place] [address] Nakia Junior, RN AMB-HEAD NECK AND RESPIRATORY [...] Upcoming Encounters Date Type Department Care Team ([facility] Contact Info) Description 01/01/2025 9:40 AM EDT Office Visit [facility] Gynecology [address] [place] [address] Mark Zurita MD [address] [facility] [address] [place] [address] 04/01/2025 9:00 AM EST Appointment [facility] Radiology [address] [place] [address] 04/01/2025 10:00 AM EST Office Visit [facility] Head, Neck & Respiratory [address] [place] [address] Candido Fitzgerald MD [address] [facility] [address] [place] [address] 04/15/2025 3:20 PM EST Office Visit [place] [facility] [address] [place] [address] Lisa Leon APRN [address] [place] [address] documented as of this encounter Visit Diagnoses Not on filedocumented in this encounter Additional Health Concerns Assessment Noted Time A fall risk assessment has been complete d for the patient 10/01/2024 10:28 AM EDT A Body Mass Index follow-up plan has been documented for the patient 10/05/2024 8:54 AM EDT documented as of this encounter Care Teams Duty Officer Relationship Specialty Start Date End Date Cali Snyder APRN [address] [place] [address] PCP - General 01/09/24 Nico Moncada MD [address] [facility] [address] [place] [address] Referring Physician Cardiology 12/21/21 Elba Alves DO 1210 [facility] [address] [place] [address] Resident 06/13/24 documented as of this encounter
[2024-11-29 22:35] LABS: Free T4 (Free Thyroxine) 1.35 ng/dl (0.78-2.19)
[2024-11-29 22:37] LABS: Free Thyroxine Index 3.0 ug/dL (5.93-13.13); T4 (Thyroxine) 8.9 ug/dl (5.53-11.0); Triiodothryronine (T3) Uptake 34 % (23.5-40.5)
--- OUTSIDE RECORDS SUMMARY | 2024-11-29 22:44 | XMS_ITS | CCD ---
Author Name Christin Thapa NP Address [address] [place] [address] Phone Organization [facility] Phone Care Team Providers Care Chief Investigator Name Role Phone Christin Thapa NP Primary Care Provider Unavaila ble Unavailable Chronic Care Management Unavaila ble Summary Purpose DataExchange Insurance Providers Payer name Policy type / Coverage type Covered green party ID Effective Begin Date Effective End Date [facility] [id number] Unknown Unknown Family history Father Diagnosis Age [...] School Graduate 05/20 Employment Unknown Retired from [employer] 06/13/2024 Tobacco history Unknown Former User 06/13/[address]: [id number] Never drinks alco hol 06/13/2024 Illegal/Recreational drug [...] Fill Instructions Lipitor 20 mg tablet RxNorm: 956218 Take 1 Tablet(s) Oral every day 07/31/19 25 026 Active Breo Ellipta 100 mcg-25 mcg/dose powder for inhalation RxNorm: 8488129 Inhale 1 Puff(s) Inhalation every day 07/31/19 25 025 Inactive Breo Ellipta 100 mcg-25 mcg/dose powder for inhalation RxNorm: 4148622 Inhale 1 Puff(s) Inhalation every day 06/14/19 25 025 Inactive Tofacitinib Citrate ER (Xeljanz XR) 11 MG tablet sustained-release 24 hour RxNorm: 6323146 Take 1 Tablet(s) Oral every day . 04/25/19 25 No Stop Date Active hydroxychloroquine (Plaquenil) 200 MG tablet RxNorm: 7283644 Take 1 Tablet(s) (200 mg) Oral every day . 01/09/20 24 No Stop Date Active oxybutynin XL (Ditropan-XL) 10 MG 24 hr tablet RxNorm: 540273 Take 1 Tablet(s) (10 mg) Oral every day . 10/18/19 24 No Stop Date Active estradiol (Estrace) 0.1 MG/GM vaginal cream RxNorm: 135968 USING FINGER TECHNIQUE DAILY FOR 2 WEEKS AND THEN TWICE WEEKLY VAGINALLY 10/17/19 24 No Stop Date Active opgbvyem-ulohhuxuv-er xamethasone (Maxitrol) 3.5-08868-9.1 ophthalmic suspension RxNorm: 808245 opht 09/05/19 24 025 Inactive predniSONE (Deltasone) 5 MG tablet RxNorm: 273884 Take 3 tablets for 5 days, then take 2 tablets for 5 days, then take 1 tablet for 5 days. 09/01/19 24 No Stop Date Active metoprolol tartrate (Lopressor) 25 MG tablet RxNorm: 289776 Take 0.5 tablets (12.5 mg) by mouth 2 (two) times a day. 03/05/20 21 No Stop Date Active albuterol 108 (90 Base) MCG/ACT inhaler RxNorm: 4955063 INHALE 2 PUFFS BY MOUTH EVERY 4 TO 6 HOURS NEEDED FOR SHORTNESS OF BREATH OR WHEEZING 10/03/19 21 No Stop Date Active atorvastatin (Lipitor) 20 MG tablet RxNorm: 749075 1 (one) time each day. 09/09/19 21 025 Inactive pramipexole (Mirapex) 0.125 MG tablet RxNorm: 397258 TAKE 1 TABLET BY MOUTH NIGHTLY FOR RESTLESS LEGS 07/08/19 21 No Stop Date Active alendronate (Fosamax) 70 MG tablet RxNorm: 129537 TAKE 1 TABLET BY MOUTH EVERY WEEK ON SAME DAY EACH WEEK 06/24/19 21 No Stop Date Active Medication Administered No Medication Administered data Procedures Procedure Codes Date Most recent systolic blood pressure 130 to 139 m m CPT-4: 3075F 06/13/2024 Most recent diastolic blood pressure < 80 mm hg CPT-4: 3078F 06/13/2024 MED LIST DOCD IN [facility] CPT-4: 1159F 06/13/2024 RVW MEDS BY RX/DR IN [facility] CPT-4: 1160F 2024 Functional Status Assessed CPT-4: 1170F 06/13 Screening for clinical depre ssion is negative, follow-up plan not required CPT-4: G8510 06/13/2024 Vital Signs Date Vital 06/13/2024 Blood Pressure 1: 138/70 Code: 8480-6 BMI: 20.1 Code: 52689-0 Heart Rate 1: 65 bpm Height: 5'3 Code: 8302-2 Respiratory Rate: 16 bpm SpO2: 98% Temperature: 36.4 (C) / 97.6 (F) Weight: 113 lbs 4 oz Code: 82968-2 Reason For Visit Reason For Visit Effective Dates Notes established patient visit 07/30/2024 new patient welcome visit 06/13/2024 Encounters Encounter Performer Location Location Address Codes Date () (EST PT) LOW COMPLEXITY TELEHEALTH VISIT Diagnosis: COPD (chronic obstructive pulmonary disease)[ICD10: J44.9] Diagnosis: Rheumatoid arthritis[ICD10: M06.9] Diagnosis: Hypertension[ICD10 : I10] [facility] [address] [place] [address] CPT-4: 26911 07/30/2024 (04234) Home or Residence Visit DIGITAL SALES REPRESENTATIVE - Moderate Level, 60 mins Diagnosis: COPD (chronic obstructive pulmonary disease)[ICD10: J44.9] Diagnosis: Rheumatoid arthritis[ICD10: M06.9] Diagnosis: Hypertension[ICD10 : I10] Diagnosis: Encounter for general adult medical examination without abnormal findings[ICD10: Z00.00] [facility] Office [address] [place] [address] CPT-4: 11880 06/13/2024 Plan of Care Planned Activity Notes Codes Status Date Visit Plan: This is a phone call only. Patient is in the [facility] and consents to treatment via telephone. [...] Appointment: Christin Thapa WPtel: [address] [facility] [address] [id number] 07/30/2024 Patient Education: Patient Medication Summary [...] has quit for many years now. Her Child Care Center Administrator gave her BREO to use but she [...] of care. 06/13/2024 Appointment: Christin Thapa WPtel: [facility] [address] 06/13/2024 Patient Education: Patient Medication Summary Completed 06/13/2024 Instructions Comment Date . This is a phone call only. Patient is in the [facility] and consents to treatment via telephone. [...] has quit for many years now. Her Child Care Center Administrator gave her BREO to use but she [...]
[2024-11-29 22:50] LABS: Thyroid Stimulating Hormone 0.06 uIU/mL (0.465-4.68)
== END 2024-11-29 23:59 | disposition home or self-care (01) ==
LOC: LAB 21:42
PROVIDERS: PCP Family Medicine; Visit Provider Family Medicine
DX: R79.89 Other specified abnormal findings of blood chemistry (principal)
CPT/HCPCS: 84436; 84439; 84443; 84479

== ENCOUNTER 2024-12-26 09:39 | Outpatient (CLI) | payer MEDICARE, SELFPAY ==
[2024-12-26 11:32] LABS: Albumin Level 3.8 g/dl (3.5-5.0); Chloride 104 mmol/L (98-107); Potassium 4.5 mmoL/L (3.5-5.1); Sodium 137 mmol/L (136-145)
[2024-12-26 11:35] LABS: Anion Gap 11.5 mEq/L (5-15); Calcium 8.9 mg/dl (8.4-10.2); Carbon Dioxide 26 mmol/L (22.0-30.0); Glucose 78 mg/dl (74-100); Phosphorous 3.2 mg/dl (2.5-4.5)
[2024-12-26 11:36] LABS: Magnesium 2.1 mg/dl (1.6-2.3)
[2024-12-26 11:49] LABS: Free T4 (Free Thyroxine) 1.12 ng/dl (0.78-2.19)
[2024-12-26 12:02] LABS: Thyroid Stimulating Hormone 1.33 uIU/mL (0.465-4.68)
[2024-12-26 13:07] LABS: Blood Urea Nitrogen 14 mg/dl (7-17); Creatinine,Serum 0.90 mg/dl (0.52-1.04); Estimated Glomerular Filt Rate 62 ml/min (>60); GFR (African American) 74 ML/MIN (>60)
[2024-12-26 18:40] LABS: 25-OH Vitamin D, Total 30.8 ng/mL (30-100)
== END 2024-12-26 23:59 | disposition home or self-care (01) ==
LOC: LAB 09:39
PROVIDERS: PCP Family Medicine; Visit Provider Student in an Organized Health Care Education/Training Program
DX: M81.0 Age-related osteoporosis without current pathological fracture (principal); R79.89 Other specified abnormal findings of blood chemistry
CPT/HCPCS: 36415; 80069; 82306; 82523; 83735; 83970; 84080; 84439; 84443

== ENCOUNTER 2025-01-08 08:39 | Outpatient (CLI) | payer MEDICARE, SELFPAY ==
--- OUTSIDE RECORDS SUMMARY | 2020-01-26 06:00 | XMS_ITS | Encounter Summary ---
Author Organization [facility] [address] Care Team Providers Care Machine Castings Plasterer Name Role Phone Unavailable Primary Care Provider Unavailabl e Encounter Details Date Type Department Care Team (Late st Contact Info) Description 01/26/2020 5:00 AM EST Hospital Encounter [facility] Referral Lab [address] [phone] Haroon Cain MD [address] [place] [address] Social History Tobacco Use Types Packs/Day Years [...]
--- OUTSIDE RECORDS SUMMARY | 2025-01-01 09:40 | XMS_ITS | Encounter Summary ---
Author Organization Healthcare Address [address] [place] [address] Care Team Providers Care Rent Control Office Manager Name Role Phone Nico Moncada MD Unavailable [phone] Elba Alves DO Unavailable [phone] Ladonna Iqbal APRN Primary Care Provider [phone] Reason for Visit * Reason Comments Follow-up HX of SPV for OLIVIA 3 Encounter Details Date Type Department Care Team (Late st Contact Info) Description 01/01/2025 9:40 AM EDT Office Visit [facility] [address] [place] [address] Mark Zurita MD [address] [facility] [address] [place] [address] Severe vulvar dysplasia, histologically confirmed (Primary Dx) [...] nursing note reviewed. Exam conducted with a paperhanger assistant present. Constitutional: Appearance: Normal appearance. She is [...] lesions or SXS before MD BUDDY Frederick [facility] GYNECOLOGY [address] [facility] [address] Dept: [phone] Dept Loc: [phone] [1] Past Medical History: Diagnosis Date COPD (chronic obstructive pulmonary disease) (CMS/HCC) COVID-19 11/13/2021 Heart disease Hepatitis C Personal history of other diseases of the digestive system History of gallstones Personal history of other diseases of the musculoskeletal system and connective tissue History of osteoporosis Rheumatoid arthritis ([facility]) Skin cancer UTI (urinary tract infection) UTI (urinary tract infection) [2] Past Surgical History: Procedure Laterality Date CARDIAC CATHETERIZATION N/A CATARACT EXTRACTION N/A CORONARY ARTERY BYPASS GRAFT N/A 12/25/2019 CABG x 1 - AGUILAR to LAD (Dr Jose Delgado) LEG SURGERY N/A STERNAL WIRES REMOVAL 12/09/2021 Dr Jose Delgado - , [facility] TUBAL LIGATION N/A VULVA SURGERY Right [...] Multiple Vitamin (MULTIVITAMINS PO) Take by mouth. sipzywon-henngyobu-trsmuvkxvmtgn (Maxitrol) 3.5-51012-6.1 ophthalmic suspension nystatin (Mycostatin) 044174 UNIT/ML suspension ondansetron (Zofran) 4 MG tablet [...] EST Appointment [facility] Rad[facility] [address] [place] [address] 04/01/2025 10:00 AM EST Office Visit [facility] Res[facility] 800 [facility], 2nd [place] [address] Candido Fitzgerald MD [address] [place] [address] 04/15/2025 3:20 PM EST Office Visit [place] [facility] [address], [address] [place] [address] Lisa Leon, JUANJOSE [address] [place] [address] 07/02/2025 2:00 PM EDT Office Visit [facility] [address] [facility] [address] [place] [address] Mark Zurita MD [address] [facility] [address] [place] [address] documented as of this encounter Visit Diagnoses [...] documented as of this encounter Care Teams Rent Control Office Manager Relationship Specialty Start Date End Date Ladonna Iqbal APRN [address] [place] [address] PCP - General 01/01/25 Nico Moncada MD 1210 [place] [facility] 36 [place] [address] Referring Physician Cardiology 12/21/21 Elba Alves DO 1210 [facility] [address] [place] [phone] Resident 06/13/24 documented as of this encounter
[2025-01-08 19:07] LABS: Coronavirus 19, PCR Not Detected (NotDetected); Influenza A, PCR Not Detected (NotDetected); Influenza B, PCR Not Detected (NotDetected)
--- OUTSIDE RECORDS SUMMARY | 2025-01-10 08:48 | XMS_ITS | Clinical Summary ---
Author Organization [facility] Address [address] [place] [address] Care Team Providers Care Lightning Rod Installer Name Role Phone Nico Moncada MD Unavailable [phone] Elba Alves DO Unavailable [phone] Ladonna Iqbal APRN Primary Care Provider [phone] Allergies Active Allergy Reactions Criticality Noted Date [...] VAGINALLY 4 Active neomycin-polymy javier-dexamethaso ne (Maxitrol) 3.5-83940-1.1 ophthalmic suspension 4 Active oxybutynin XL (Ditropan-XL) [...] DAILY NEEDED FOR RASH Active nystatin (Mycostatin) 887416 UNIT/ML suspension 5 Active hydroxychloroqu ine (Plaquenil) [...] mouth daily. 30 tablet 4 5 Active ranolazine (Ranexa) 1000 MG 12 hr tablet Take 1 tablet by mouth 2 times a day. 5 Active Active Problems Problem Noted Date [...] Encounters Date Type Department Care Team Description 01/01/2025 9:40 AM EDT Office Visit [facility] [address] [place] [address] Mark Zurita MD Severe vulvar dysplasia, histologically confirmed (Primary Dx) 01/01/2025 Travel 10/16/2024 Telephone [facility] [address] [facility], 2nd [place] [address] Nakia Junior RN 10/16/2024 Orders Only [facility] Head[facility] Neck [facility] Respiratory [address] [facility], [address]nd [place] [address] Nakia uJnior, RN from Last 3 Months Immunizations Immunization Administration [...] Mass Index 20.05 01/01/2025 10:31 AM EDT Plan of Treatment Upcoming Encounters Date Type Department Care Team (Late st Contact Info) Description 04/01/2025 9:00 AM EST Appointment [facility] Radiology [address] [place] [address] 04/01/2025 10:00 AM EST Office Visit [facility] Res[facility] [address] [place] [address] Candido Fitzgerald MD [address] [facility] [address] [place] [address] 04/15/2025 3:20 PM EST Office Visit [place] [facility] [address] [place] [address] Lisa Leon APRN [address] [place] [address] 07/02/2025 2:00 PM EDT Office Visit [facility] [address] [place] [address] Mark Zurita MD [address] [place] [address] Health Maintenance Due Date Last Done Comments [...] - Risk 60-74 years 1-dose series) 2012 [id number] Vaccine (2 - Deb risk series) 06/25/2020 05/28/2020 [facility]-Pneumococcal Vaccine: 50+ Years (3 of 3 - PCV) 03/31/2021 03/31/2020, 01/16/2020 [facility]-Influenza Vaccine (#1) 11/19/202412/29, 01/19/2022, 03/06/2021, Additional history exists [facility]-Depression Screening 01/01/2026 01/01/2025 [facility]-Hepatitis C Screening Completed 2021, 04/03/2021, 02/29/2020, [...] Procedure Name Priority Date/Time Associated Diagnosis Comments HEPATITIS C ANTIBODY W/REFLEX TO HCV QUANT PCR Routine 04/03/2021 4:35 PM EST High risk medication use Need for hepatitis C screening test from Last 3 Months or Most Recently Relevant to Health Maintenance Results * (ABNORMAL) Hepatitis C Antibody (04/03/2021 4:35 PM EST) Hepatitis C Antibody Positive( A) Negative 04/03/2021 8:34 PM EST [facility] Comment:This specimen is gee ng sent for confirmation by RT-PCR. Blood Venous blood specimen / Unknown Venipuncture / Unknown 04/03/2021 4:35 PM EST 04/03/2021 4:35 PM EST [facility] BLOOD ORDERABLES Final Resul t [facility] [address] [place] [address] from Last 3 Months or Most Recently Relevant to Health Maintenance Insurance [employer] MEDICARE Care Teams Lightning Rod Installer Relationship Specialty Start Date End Date Ladonna Iqbal APRN [address] [place] [address] PCP - General 01/01/25 Nico Moncada MD 1210 [place] [address] Referring Physician Cardiology 12/21/21 Elba Alves DO 1210 [place] [address] Resident 06/13/24
--- OUTSIDE RECORDS SUMMARY | 2025-01-10 08:48 | XMS_ITS | Encounter Summary ---
Author Organization Healthcare Address [address] [place] [address] Care Team Providers Care Freight Representative Name Role Phone Nico Moncada MD Unavailable [phone] Elba Alves DO Unavailable [phone] Ladonna Iqbal APRN Primary Care Provider [phone] Encounter Details Date Type Department Care Team (Latest Contact Info) Description 01/01/2025 Travel Social History Tobacco Use Types Packs/Day [...] Alberta Worley documented as of this encounter Plan of Treatment Upcoming Encounters Date Type Department Care Team (Late st Contact Info) Description 04/01/2025 9:00 AM EST Appointment [facility] Radiology [address] [place] [address] 04/01/2025 10:00 AM EST Office Visit [facility] Head[facility] Neck [facility] Respiratory 800 [facility], [address]nd [place] [address] Candido Fitzgerald MD [address] [place] [address] 04/15/2025 3:20 PM EST Office Visit [place] [facility] [address], [address] [place] [address] Lisa Leon APRN [address] [place] [address] 07/02/2025 2:00 PM EDT Office Visit [facility] Gynecology 800 [facility] [address] [place] [address] Mark Zurita MD [address] [facility] [address] [facility] [address] [place] [address] documented as of this encounter Visit Diagnoses Not on filedocumented in this encounter Additional Health Concerns Assessment Noted Time A fall risk assessment has been complete d for the patient 01/01/2025 10:39 AM EDT A Body Mass Index follow-up plan has been documented for the patient 10/05/2024 8:54 AM EDT documented as of this encounter Care Teams Freight Representative Relationship Specialty Start Date End Date Ladonna Iqbal APRN [address] [place] [address] PCP - General 01/01/25 Nico Moncada MD [address] [place] [address] [address] Referring Physician Cardiology 12/21/21 Elba Alves DO [address] [place] [address] [address] Resident 06/13/24 documented as of this encounter
--- OUTSIDE RECORDS SUMMARY | 2025-01-10 08:49 | XMS_ITS | Clinical Summary ---
Author Organization [facility] [place] Address [address] [place] [address] Phone Care Team Providers Care Drive Tester Name Role Phone Unavailable Primary Care Provider [...] 2002 Bone Density Screening 2017 COVID-19 Vaccine (2024-2 6 season) 2024 Influenza Vaccine (#1) 2024 Hepatitis B Vaccine Aged Out No longe r eligible based on patient's age to complete this topic Meningococcal B Vaccine Aged Out No l onger eligible based on patient's age to complete this topic
--- OUTSIDE RECORDS SUMMARY | 2025-01-10 08:49 | XMS_ITS | Encounter Summary ---
Author Organization Healthcare Address [address] [place] [address] Care Team Providers Care Grain Farmworker Name Role Phone Nico Moncada MD Unavailable [phone] Cali Snyder APRN Primary Care Provider [phone] Elba Alves DO Unavailable [phone] Encounter Details Date Type Department Care Team (Late st Contact Info) Description 09/19/2024 Results Follow-Up [place] [facility] [address] [place] [address] Lisa Leon APRN [address] [place] [address] Social History Tobacco Use Types [...] EST Appointment [facility] Rad[facility] [address] [place] [address] 04/01/2025 10:00 AM EST Office Visit [facility] Head[facility] Neck [facility] Respiratory [address], [address] [place] [address] Candido Fitzgerald MD [address] [place] [address] 04/15/2025 3:20 PM EST Office Visit [place] [facility] [address], [address] [place] [address] Lisa Leon APRN [address] [place] [address] 07/02/2025 2:00 PM EDT Office Visit [facility] Gyne[facility] [address] [place] [address] Mark Zurita MD [address] Mad[address] [facility] [address] [place] [address] documented as of this encounter Visit Diagnoses Not on filedocumented in this encounter Additional Health Concerns Assessment Noted Time A fall risk assessment has been complete d for the patient 09/17/2024 3:19 PM EDT A Body Mass Index follow-up plan has been documented for the patient 09/17/2024 3:40 PM EDT documented as of this encounter Care Teams Grain Farmworker Relationship Specialty Start Date End Date Cali Snyder APRN [address] [place] [address] PCP - General 01/09/24 12/31/24 Nico Moncada MD 1210 [place] [facility] 36 [place] [address] Referring Physician Cardiology 12/21/21 Elba Alves DO 1210 [place] [facility] [address] [place] [address] Resident 06/13/24 documented as of this encounter
--- OUTSIDE RECORDS SUMMARY | 2025-01-10 09:48 | XMS_ITS | CCD ---
Author Name Christin Thapa NP Address [address] [facility] [address] [place] [address] Phone Organization [facility] Phone Care Team Providers Care Regional Marketing Manager Name Role Phone Christin Thapa NP Primary Care Provider Unavaila ble Unavailable Chronic Care Management Unavaila ble Summary Purpose DataExchange Insurance Providers Payer name Policy type / Coverage type Covered libertarian ID Effective Begin Date Effective End Date [facility] [id number] Unknown Unknown Family history Father Diagnosis Age [...] School Graduate 05/20 Employment Unknown Retired from [employer] 06/13/2024 Tobacco history Unknown Former User 06/13/[address]: 112514089 Never drinks alco hol 06/13/2024 Illegal/Recreational drug [...] Fill Instructions Lipitor 20 mg tablet RxNorm: 752700 Take 1 Tablet(s) Oral every day 07/31/19 25 026 Active Breo Ellipta 100 mcg-25 mcg/dose powder for inhalation RxNorm: 8744201 Inhale 1 Puff(s) Inhalation every day 07/31/19 25 025 Inactive Breo Ellipta 100 mcg-25 mcg/dose powder for inhalation RxNorm: 7510327 Inhale 1 Puff(s) Inhalation every day 06/14/19 25 025 Inactive Tofacitinib Citrate ER (Xeljanz XR) 11 MG tablet sustained-release 24 hour RxNorm: 9434653 Take 1 Tablet(s) Oral every day . 04/25/19 25 No Stop Date Active hydroxychloroquine (Plaquenil) 200 MG tablet RxNorm: 6179893 Take 1 Tablet(s) (200 mg) Oral every day . 01/09/20 24 No Stop Date Active oxybutynin XL (Ditropan-XL) 10 MG 24 hr tablet RxNorm: 820350 Take 1 Tablet(s) (10 mg) Oral every day . 10/18/19 24 No Stop Date Active estradiol (Estrace) 0.1 MG/GM vaginal cream RxNorm: 404233 USING FINGER TECHNIQUE DAILY FOR 2 WEEKS AND THEN TWICE WEEKLY VAGINALLY 10/17/19 24 No Stop Date Active umbdthfm-kselgevfx-na xamethasone (Maxitrol) 3.5-26526-4.1 ophthalmic suspension RxNorm: 109778 opht 09/05/19 24 025 Inactive predniSONE (Deltasone) 5 MG tablet RxNorm: 161495 Take 3 tablets for 5 days, then take 2 tablets for 5 days, then take 1 tablet for 5 days. 09/01/19 24 No Stop Date Active metoprolol tartrate (Lopressor) 25 MG tablet RxNorm: 336526 Take 0.5 tablets (12.5 mg) by mouth 2 (two) times a day. 03/05/20 21 No Stop Date Active albuterol 108 (90 Base) MCG/ACT inhaler RxNorm: 6290429 INHALE 2 PUFFS BY MOUTH EVERY 4 TO 6 HOURS NEEDED FOR SHORTNESS OF BREATH OR WHEEZING 10/03/19 21 No Stop Date Active atorvastatin (Lipitor) 20 MG tablet RxNorm: 219977 1 (one) time each day. 09/09/19 21 025 Inactive pramipexole (Mirapex) 0.125 MG tablet RxNorm: 339101 TAKE 1 TABLET BY MOUTH NIGHTLY FOR RESTLESS LEGS 07/08/19 21 No Stop Date Active alendronate (Fosamax) 70 MG tablet RxNorm: 336377 TAKE 1 TABLET BY MOUTH EVERY WEEK ON SAME DAY EACH WEEK 06/24/19 21 No Stop Date Active Medication Administered No Medication Administered data Procedures Procedure Codes Date Most recent systolic blood pressure 130 to 139 m m CPT-4: 3075F 06/13/2024 Most recent diastolic blood pressure < 80 mm hg CPT-4: 3078F 06/13/2024 MED LIST DOCD IN [facility] CPT-4: 1159F 06/13/2024 RVW MEDS BY RX/DR IN [facility] CPT-4: 1160F 2024 Functional Status Assessed CPT-4: 1170F 06/13 Screening for clinical depre ssion is negative, follow-up plan not required CPT-4: G8510 06/13/2024 Vital Signs Date Vital 06/13/2024 Blood Pressure 1: 138/70 Code: 8480-6 BMI: 20.1 Code: 80170-7 Heart Rate 1: 65 bpm Height: 5'3 Code: 8302-2 Respiratory Rate: 16 bpm SpO2: 98% Temperature: 36.4 (C) / 97.6 (F) Weight: 113 lbs 4 oz Code: 25281-2 Reason For Visit Reason For Visit Effective Dates Notes established patient visit 07/30/2024 new patient welcome visit 06/13/2024 Encounters Encounter Performer Location Location Address Codes Date () (EST PT) LOW COMPLEXITY TELEHEALTH VISIT Diagnosis: COPD (chronic obstructive pulmonary disease)[ICD10: J44.9] Diagnosis: Rheumatoid arthritis[ICD10: M06.9] Diagnosis: Hypertension[ICD10 : I10] [facility] [address] [facility] [place] [address] CPT-4: 05500 07/30/2024 ([id number]) Home or Residence Visit 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 Patient is in the [facility] and consents to treatment via telephone. [...] Appointment: Christin Thapa WPtel: [address] [facility] [address] [id number] 07/30/2024 Patient Education: Patient Medication Summary [...] has quit for many years now. Her Structural Engineer gave her BREO to use but she [...] Appointment: Christin Thapa WPtel: [facility] [address] [address] 06/13/2024 Patient Education: Patient Medication Summary Completed 06/13/2024 Instructions Comment Date . This is a phone call only. Patient is in the [facility] and consents to treatment via telephone. [...] has quit for many years now. Her Structural Engineer gave her BREO to use but she [...]
== END 2025-01-08 23:59 ==
LOC: LAB.DROPOF 01-10 08:39
PROVIDERS: PCP Family Medicine; Visit Provider Family Medicine
DX: R05.9 Cough, unspecified (principal)
CPT/HCPCS: 87636

== ENCOUNTER 2025-01-22 10:05 | Outpatient (CLI) | payer MEDICARE, SELFPAY ==
--- OUTSIDE RECORDS SUMMARY | 2020-01-26 05:00 | XMS_ITS | Encounter Summary ---
Author Organization [facility] [address] Care Team Providers Care Student Worker Name Role Phone Unavailable Primary Care Provider Unavailabl e Encounter Details Date Type Department Care Team (Late st Contact Info) Description 01/26/2020 5:00 AM EST Hospital Encounter [facility] Referral Lab [address] [phone] Haroon Cain MD [address] [place] [address] Social History Tobacco Use Types Packs/Day Years [...]
--- OUTSIDE RECORDS SUMMARY | 2025-01-01 08:40 | XMS_ITS | Encounter Summary ---
Author Organization Healthcare Address [address] [place] [address] Care Team Providers Care Accounts Payable Associate Name Role Phone Nico Moncada MD Unavailable [phone] Elba Alves DO Unavailable [phone] Ladonna Iqbal APRN Primary Care Provider [phone] Reason for Visit * Reason Comments Follow-up HX of SPV for OLIVIA 3 Encounter Details Date Type Department Care Team (Late st Contact Info) Description 01/01/2025 9:40 AM EDT Office Visit [facility] [address] [place] [address] Mark Zurita MD [address] [facility] [address] [place] [address] Severe vulvar dysplasia, histologically confirmed (Primary Dx) [...] nursing note reviewed. Exam conducted with a supervisor motorcycle repair shop present. Constitutional: Appearance: Normal appearance. She is [...] lesions or SXS before MD BUDDY Frederick [facility] GYNECOLOGY [address] [facility] [address] Dept: [phone] Dept Loc: [phone] [1] Past Medical History: Diagnosis Date COPD (chronic obstructive pulmonary disease) (CMS/HCC) COVID-19 11/13/2021 Heart disease Hepatitis C Personal history of other diseases of the digestive system History of gallstones Personal history of other diseases of the musculoskeletal system and connective tissue History of osteoporosis Rheumatoid arthritis ([facility]) Skin cancer UTI (urinary tract infection) UTI (urinary tract infection) [2] Past Surgical History: Procedure Laterality Date CARDIAC CATHETERIZATION N/A CATARACT EXTRACTION N/A CORONARY ARTERY BYPASS GRAFT N/A 12/25/2019 CABG x 1 - AGUILAR to LAD (Dr Jose Delgado) LEG SURGERY N/A STERNAL WIRES REMOVAL 12/09/2021 Dr Jose Delgado - , [facility] TUBAL LIGATION N/A VULVA SURGERY Right 08/09/2024 [...] Multiple Vitamin (MULTIVITAMINS PO) Take by mouth. wujocttq-upmxsgnib-dliemmykhkxrc (Maxitrol) 3.5-58323-3.1 ophthalmic suspension nystatin (Mycostatin) 674982 UNIT/ML suspension ondansetron (Zofran) 4 MG tablet [...] EST Appointment [facility] Radiology [address] [place] [address] 04/01/2025 10:00 AM EST Office Visit [facility] Res[facility] [address] [facility], 2nd [place] [address] Candido Fitzgerald MD [address] [place] [address] 04/15/2025 3:20 PM EST Office Visit [place] [facility] [address], 2[address] [place] [address] Lisa Leon, JUANJOSE [address] [place] [address] 07/02/2025 2:00 PM EDT Office Visit [facility] [address] [facility] [address] [place] [address] Mark Zurita MD [address] [facility] [address] [place] [address] documented as of this encounter Visit Diagnoses [...] documented as of this encounter Care Teams Accounts Payable Associate Relationship Specialty Start Date End Date Ladonna Iqbal APRN [address] [place] [address] PCP - General 01/01/25 Nico Moncada MD 1210 [facility] 36 [place] [address] Referring Physician Cardiology 12/21/21 Elba Alves DO 1210 [facility] [address] [place] [address] Resident 06/13/24 documented as of this encounter
--- OUTSIDE RECORDS SUMMARY | 2025-01-22 10:07 | XMS_ITS | CCD ---
Author Name Christin Thapa NP Address [address] [place] [address] Phone Organization [facility] Phone Care Team Providers Care Bus Company Manager Name Role Phone Christin Thapa NP Primary Care Provider Unavaila ble Unavailable Chronic Care Management Unavaila ble Summary Purpose DataExchange Insurance Providers Payer name Policy type / Coverage type Covered democrat ID Effective Begin Date Effective End Date [facility] [id number] Unknown Unknown Family history Father Diagnosis Age [...] School Graduate 05/20 Employment Unknown Retired from [employer] 06/13/2024 Tobacco history Unknown Former User 06/13/[address]: 668815469 Never drinks alco hol 06/13/2024 Illegal/Recreational drug [...] Fill Instructions Lipitor 20 mg tablet RxNorm: 108601 Take 1 Tablet(s) Oral every day 07/31/19 25 026 Active Breo Ellipta 100 mcg-25 mcg/dose powder for inhalation RxNorm: 7492250 Inhale 1 Puff(s) Inhalation every day 07/31/19 25 025 Inactive Breo Ellipta 100 mcg-25 mcg/dose powder for inhalation RxNorm: 2050914 Inhale 1 Puff(s) Inhalation every day 06/14/19 25 025 Inactive Tofacitinib Citrate ER (Xeljanz XR) 11 MG tablet sustained-release 24 hour RxNorm: 4663406 Take 1 Tablet(s) Oral every day . 04/25/19 25 No Stop Date Active hydroxychloroquine (Plaquenil) 200 MG tablet RxNorm: 7687695 Take 1 Tablet(s) (200 mg) Oral every day . 01/09/20 24 No Stop Date Active oxybutynin XL (Ditropan-XL) 10 MG 24 hr tablet RxNorm: 168629 Take 1 Tablet(s) (10 mg) Oral every day . 10/18/19 24 No Stop Date Active estradiol (Estrace) 0.1 MG/GM vaginal cream RxNorm: 445843 USING FINGER TECHNIQUE DAILY FOR 2 WEEKS AND THEN TWICE WEEKLY VAGINALLY 10/17/19 24 No Stop Date Active cejigmcz-uiuutvwci-to xamethasone (Maxitrol) 3.5-50648-0.1 ophthalmic suspension RxNorm: 791033 opht 09/05/19 24 025 Inactive predniSONE (Deltasone) 5 MG tablet RxNorm: 803475 Take 3 tablets for 5 days, then take 2 tablets for 5 days, then take 1 tablet for 5 days. 09/01/19 24 No Stop Date Active metoprolol tartrate (Lopressor) 25 MG tablet RxNorm: 815215 Take 0.5 tablets (12.5 mg) by mouth 2 (two) times a day. 03/05/20 21 No Stop Date Active albuterol 108 (90 Base) MCG/ACT inhaler RxNorm: 3179886 INHALE 2 PUFFS BY MOUTH EVERY 4 TO 6 HOURS NEEDED FOR SHORTNESS OF BREATH OR WHEEZING 10/03/19 21 No Stop Date Active atorvastatin (Lipitor) 20 MG tablet RxNorm: 446899 1 (one) time each day. 09/09/19 21 025 Inactive pramipexole (Mirapex) 0.125 MG tablet RxNorm: 422403 TAKE 1 TABLET BY MOUTH NIGHTLY FOR RESTLESS LEGS 07/08/19 21 No Stop Date Active alendronate (Fosamax) 70 MG tablet RxNorm: 009121 TAKE 1 TABLET BY MOUTH EVERY WEEK ON SAME DAY EACH WEEK 06/24/19 21 No Stop Date Active Medication Administered No Medication Administered data Procedures Procedure Codes Date Most recent systolic blood pressure 130 to 139 m m CPT-4: 3075F 06/13/2024 Most recent diastolic blood pressure < 80 mm hg CPT-4: 3078F 06/13/2024 MED LIST DOCD IN [facility] CPT-4: 1159F 06/13/2024 RVW MEDS BY RX/DR IN [facility] CPT-4: 1160F 2024 Functional Status Assessed CPT-4: 1170F 06/13 Screening for clinical depre ssion is negative, follow-up plan not required CPT-4: G8510 06/13/2024 Vital Signs Date Vital 06/13/2024 Blood Pressure 1: 138/70 Code: 8480-6 BMI: 20.1 Code: 96818-1 Heart Rate 1: 65 bpm Height: 5'3 Code: 8302-2 Respiratory Rate: 16 bpm SpO2: 98% Temperature: 36.4 (C) / 97.6 (F) Weight: 113 lbs 4 oz Code: 77393-6 Reason For Visit Reason For Visit Effective Dates Notes established patient visit 07/30/2024 new patient welcome visit 06/13/2024 Encounters Encounter Performer Location Location Address Codes Date () (EST PT) LOW COMPLEXITY TELEHEALTH VISIT Diagnosis: COPD (chronic obstructive pulmonary disease)[ICD10: J44.9] Diagnosis: Rheumatoid arthritis[ICD10: M06.9] Diagnosis: Hypertension[ICD10 : I10] [facility] [address] [place] [address] CPT-4: 19903 07/30/2024 (16198) Home or Residence 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 Patient is in the [facility] and consents to treatment via telephone. [...] Appointment: Christin Thapa WPtel: [address] [facility] [address] [id number] 07/30/2024 Patient Education: Patient Medication Summary [...] has quit for many years now. Her Engineering Librarian gave her BREO to use but she [...] of care. 06/13/2024 Appointment: Christin Thapa WPtel: [facility] [address] 06/13/2024 Patient Education: Patient Medication Summary Completed 06/13/2024 Instructions Comment Date . This is a phone call only. Patient is in the [facility] and consents to treatment via telephone. [...] has quit for many years now. Her Engineering Librarian gave her BREO to use but she [...]
--- OUTSIDE RECORDS SUMMARY | 2025-01-22 10:07 | XMS_ITS | Data Portability ---
Author Organization [facility] LAWANDA Menchaca [place] CLOSED Address [address] [place] [address] Assessment No assessment recorded. Plan of Treatment Reminders Order Date Submit Date Provider Last Modified By Organization Details Last Modified Time Details Appointments None recorded. Lab ESR (erythrocy te sedimentat ion rate), blood 2016 017 [email or web address] 8 [facility], [address] [place] [address], [id number], 7 08:01:51 CBC w/ auto diff 2016 017 [email or web address] 8 [facility], [address] [place] [address], [address], 7 08:01:51 C reactive protein, QN, serum or plasma 2016 017 [email or web address] 8 [facility], [address] [place] [address], [address], 7 08:01:51 ccp (cyclic citrullina demetris peptide) iga+igg, serum 2016 017 [email or web address] 8 [facility], [address] [place] [address], [address], 7 08:01:51 rf (rheumatoi d factor), serum 2016 017 [email or web address] 8 [facility], [address] [place] [address], [address], 7 08:01:52 C reactive protein, QN, serum or plasma 2016 017 [facility], [address] [place] [address], [address], 7 15:26:52 ESR (erythrocy te sedimentat ion rate), blood 2016 017 [facility], [address] [place] [address], [address], 7 16:12:40 rf (rheumatoi d factor), serum 2016 017 [facility], [address] [place] [address], [address], 7 15:26:53 Referral None recorded. Procedures None recorded. Surgeries None recorded. Imaging XR, chest, 2 view [id number] [facility], [address] [place] [address], [address], 7 08:19:04 XR, hand, 2 view [id number] [facility], [address] [place] [address], [address], 7 08:19:04 Medication Orders Plaquenil 200 mg tablet 2017 018 [facility] #06241, [address], [id number], 8 14:09:30 prednisone 5 mg tablet 2017 018 [facility], [address], [id number], 8 14:09:27 Plaquenil 200 mg tablet 2016 017 [facility]10600, [address] [facility] [address], [place], [id number], 7 14:07:22 prednisone 5 mg tablet 2016 017 [facility] #97907, [address] [facility] [address], [place], [id number], 7 14:07:24 Plaquenil 200 mg tablet 2016 017 [facility] #58496, [address] [facility] [address], [place], [id number], 7 16:07:36 prednisone 5 mg tablet 2016 017 [facility] #30075, [address] [facility] [address], [place], [id number], 7 16:07:39 hydroxychl oroquine 200 mg tablet 2016 017 [facility] #01936, [address] [facility] [address], [place], [id number], 7 14:10:52 prednisone 5 mg tablet 2016 017 INTERFACE [facility] #72576, [address] [facility] [address], [place], [id number], 7 14:10:55 Patient TargetsNo targets recorded. Patient Instructions Encounter Date Encounter Id Patient Instructions Last Modified By Organization Details Last Modified Time 06/17/2016 [id number] rheumatoid arthritis diet: care instructions Not available 06/21/2016 09:00:01 Rheumatoid Arthritis (RA): Care Instructions Not available 06/21/2016 09:00:01 01/28/2017 [id number] eye exam* - plaquenil eye exam [email or web address] [...] INFLA MMATO RY ACTIV ITY. Not Available [facility] [address] [place], [address], 06/17/2016 15:26:52 06/18/19 17 06/17/2016 rf (rheu matoi d facto r), serum rf screen, quant. 364.8 IU/mL 0.0-13 .9 high Test excee ds linea rity. Resul t based on speci men dilut ion. Not Available [facility] [address] [place], [address], 06/17/2016 15:26:53 06/18/19 17 06/17/2016 ESR (eryt hrocy te sedim entat ion rate) , blood ESR, automated 11 mm/HR 0-29 normal Not Available [facility] [address] [place], [address], 06/17/2016 16:12:40 Result Notes None recorded. 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 Medical [...] Details Last Updated DateTime 7 165.1 cm 94895.7 5 g 18.5 kg/m2 18 /min 69 /min 122/69 mm[Hg] Tahmina Flores [facility] 7 13:17:11 Date Recorded Body height Body weight Body mass index (BMI) Heart rate Systolic And Diastolic Provider Name and Address Organization Details Last Updated DateTime 08/12/2016 165.1 cm 90470.15 g 19.4 kg/m2 77 /min 112/59 mm[Hg] Carly Jean [facility] 7 15:28:21 Date Recorded Body height Body mass index (BMI) Body weight Respiratory rate Heart rate Systolic And Diastolic Provider Name and Address Organization Details Last Updated DateTime 8 165.1 cm 20.1 kg/m2 12186.6 8 g 20 /min 74 /min 117/65 mm[Hg] Sara Valdes [facility] 8 13:52:39 Date Recorded Body height Body mass index (BMI) Body weight Respiratory rate Heart rate Systolic And Diastolic Provider Name and Address Organization Details Last Updated DateTime 7 165.1 cm 20 kg/m2 36987.0 8 g 18 /min 70 /min 115/64 mm[Hg] Tahmina Flores [facility] 7 13:52:46 Social History Question Answer Notes LastModified by Organizat ion Details LastModified Time Tobacco Smoking Status Current Every Day Smoker Tahmina Flores [facility] 06/17/2016 13:15:33 What Was The Date Of Your Most Recent Tobacco Screening? 11/30/2017 Information not available 05/08/2019 Has Tobacco Cessation Counseling Been Provided? Yes [email or web address] Information not available 01/28/2017 On What Date Was Tobacco Cessation Counseling Provided? 11/30/2017 Information not available 11/30/2017 Sex: Unknown Functional Status Question Answer Note LastModified by Organization D etails LastModified Time What is your level of alcohol consumption? None [email or web address] Information not available 08/12/2016 Mental Status None recorded. Family History Relationship Description Onset Age of this Age Resolved Age Notes LastModified by Organization Details LastModified Time Father No current problems or disability [email or web address] Not available 06/17 13:15:24 Mother No current problems or disability [email or web address] Not available 06/17 13:15:24 Medical History Condition [...] Diagnosis SNOMED-CT Code Diagnosis ICD10 Code Diagnosis IMO Codes Diagnosis Note [id number] LINDA SHELTON MD [facility] [address] [place] [address] 06/17/2016 13:00:30 06/17/2016 14:15:51 Rheumatoid arthritis 27541319 M06.9 chronic .Nodular with chronic synovitis at [...] with close watch on her liver functions. [id number] LINDA SHELTON MD [facility] [address] [place] [address] 08/12/2016 15:00:03 08/12/2016 16:17:24 Inflammatory polyarthropathy 150117647 M06.4 Rheumatoid , chronic and is on [...] cured with Viral load is now Zero! [id number] LINDA SHELTON MD [facility] [address] [place] [address] 01/28/2017 13:27:25 01/28/2017 14:09:39 Seropositive rheumatoid arthritis 746282848 M05.9 Rheumatoid , sero positive. seems ot be fair. chronic and is on HCQ bid and low dose Prednisone 5 mg po qd. 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 I want to keep the Plaquenil, 200 mg bid and Prednisone 5 mg po qd. other issues:H/O Hep-C though cured with Viral load is now Zero! eye exam once yearly. [id number] LINDA SHELTON MD [facility] [address] [place] [address] 11/30/2017 13:34:39 11/30/2017 14:16:23 Seropositive rheumatoid arthritis 587172409 M05.9 Rheumatoid , sero positive. currently is doing better. Though recent flares, ankes, and knees. had to go on steroids. she is [id number] mg po qd, and low dose Prednisone [...] Name 02/13/2020 1 [place] Jacque Worley [id number] A Jacque Worley 02/13/2020 1 [place] [id number] Jeffry Worley [id number] Jacque Worley Notes Date Note Type [...] is a chronic smoker. LINDA SHELTON MD [facility] [place], [address], [facility] 06/17/2016 14:12:35 08/12/2016 text/html ROS as noted in the HPI seen as a follow up .she chocked on her Plaquenil and had to get hamllick manoeuver through her .she has had chocking with the peanut butter in the past.now doing well , but wants to know what she can take to avoid the chocking off and on . LINDA SHELTON MD [facility] [place], [address], [facility] 08/12/2016 16:08:04 01/28/2017 text/html ROS as noted in the HPI seen as a follow up.she is coming along well.cold weather hurts more. LINDA SHELTON MD [facility] [place], [address], [facility] 01/28/2017 14:08:01 11/30/2017 text/html ROS as noted in the HPI seen as a follow up on RA. she is on plaquenil and low dose prednisone. she does report h/o diarrhea after she used ABX for the URI. [place], [address], [facility] 11/30/2017 14:09:44 OBGyn Episode No OBEpisode recorded.
--- OUTSIDE RECORDS SUMMARY | 2025-01-22 10:08 | XMS_ITS | Clinical Summary ---
Author Organization [facility] [place] [facility] Address [address] [place] [address] Phone Care Team Providers Care Cp Bleacher Operator Name Role Phone Unavailable Primary Care [...]
--- OUTSIDE RECORDS SUMMARY | 2025-01-22 10:08 | XMS_ITS | Clinical Summary ---
Author Organization [facility] Address [address] [place] [address] Care Team Providers Care Top Lift Scourer Name Role Phone Nico Moncada MD Unavailable [phone] Elba Alves DO Unavailable [phone] Ladonna Iqbal APRN Primary Care Provider [phone] Allergies Active Allergy Reactions Criticality Noted Date [...] VAGINALLY 4 Active neomycin-polymy javier-dexamethaso ne (Maxitrol) 3.5-05540-9.1 ophthalmic suspension 4 Active oxybutynin XL (Ditropan-XL) [...] DAILY NEEDED FOR RASH Active nystatin (Mycostatin) 966931 UNIT/ML suspension 5 Active hydroxychloroqu ine (Plaquenil) [...] 01/01/2025 9:40 AM EDT Office Visit [facility] [address] [place] [address] Mark Zurita MD Severe vulvar dysplasia, histologically confirmed (Primary Dx) 01/01/2025 Travel from Last 3 Months Immunizations Immunization [...] EST Appointment [facility] [address] [place] [address] 04/01/2025 10:00 AM EST Office Visit [facility] [address] [place] [address] Candido Fitzgerald MD [address] [place] [address] 04/15/2025 3:20 PM EST Office Visit [facility] [address] [place] [address] Lisa Leon, SHOP WELDER [address] [place] [address] 07/02/2025 2:00 PM EDT Office Visit [facility] Gynecology [address] [place] [address] Mark Zurita MD [address] [place] [address] Health Maintenance Due Date Last [...] - Risk 60-74 years 1-dose series) 2012 [id number] Vaccine (2 - Deb risk series) 06/25/2020 [...] Positive( A) Negative 04/03/2021 8:34 PM EST [facility] Comment:This specimen is gee ng sent for confirmation by RT-PCR. Blood Venous blood specimen / Unknown Venipuncture / Unknown 04/03/2021 4:35 PM EST 04/03/2021 4:35 PM EST [facility] BLOOD ORDERABLES Final [facility] t [facility] Organization Address City/State/ZIP Co de Phone Number HEALTHCARE LAB [address] [place] [address] from Last 3 Months or Most Recently Relevant to Health Maintenance Insurance [facility] MEDICARE Care Teams Top Lift Scourer Relationship Specialty Start Date End Date Ladonna Iqbal APRN [address] [place], [place] [id number] PCP - General 01/01/25 Nico Moncada MD [address] [place] [address] [id number] Referring Physician Cardiology 12/21/21 Elba Alves DO [address] [place] [facility] [address] [place], [place] [id number] Resident 06/13/24
--- OUTSIDE RECORDS SUMMARY | 2025-01-22 10:08 | XMS_ITS | Encounter Summary ---
Author Organization Healthcare Address [address] [place] [address] Care Team Providers Care Neon Light Installer Name Role Phone Nico Moncada MD Unavailable [phone] Elba Alves DO Unavailable [phone] Ladonna Iqbal APRN Primary Care Provider [phone] Encounter Details Date Type Department Care Team [...] EST Appointment [facility] [address] [place] [address] 04/01/2025 10:00 AM EST Office Visit [facility] [address] [facility]nd [place] [address] Candido Fitzgerald MD [address] [place] [address] 04/15/2025 3:20 PM EST Office Visit [place] [facility] [address] [place] [address] Lisa Leon APRN [address] [place] [address] 07/02/2025 2:00 PM EDT Office Visit [facility] [address] [facility] [address] [place] [address] Mark Zurita MD [address] [facility] [address] [facility] [address] [place] [address] documented as of this encounter Visit Diagnoses Not on filedocumented in this encounter Additional Health Concerns Assessment Noted Time A fall risk assessment has been complete d for the patient 01/01/2025 10:39 AM EDT A Body Mass Index follow-up plan has been documented for the patient 10/05/2024 8:54 AM EDT documented as of this encounter Care Teams Neon Light Installer Relationship Specialty Start Date End Date Ladonna Iqbal APRN [address] [place] [address] PCP - General 01/01/25 Nico Moncada MD [address] [place] [address] [address] Referring Physician Cardiology 12/21/21 Elba Alves DO [address] [place] [address] [address] Resident 06/13/24 documented as of this encounter
== END 2025-01-22 23:59 | disposition home or self-care (01) ==
LOC: LAB 10:06
PROVIDERS: PCP Family Medicine; Visit Provider Student in an Organized Health Care Education/Training Program
DX: R69 Illness, unspecified (principal)

== ENCOUNTER 2025-01-25 09:32 | Outpatient (CLI) | payer MEDICARE, SELFPAY ==
--- OUTSIDE RECORDS SUMMARY | 2025-01-25 09:35 | XMS_ITS | Data Portability ---
Author Organization [facility] LAWANDA Menchaca WALL CLOSED Address [address] [place] [address] Assessment No assessment recorded. Plan of Treatment Reminders Order Date Submit Date Provider Last Modified By Organization Details Last Modified Time Details Appointments None recorded. Lab ESR (erythrocy te sedimentat ion rate), blood 2016 017 [email or web address] [facility], [address] [place] [address], [id number], 7 08:01:51 CBC w/ auto diff 2016 017 [email or web address] [facility], [address] [place] [address], [id number], 7 08:01:51 C reactive protein, QN, serum or plasma 2016 017 [email or web address] 8 [facility], [address] [place] [address], [id number], 7 08:01:51 ccp (cyclic citrullina demetris peptide) iga+igg, serum 2016 017 [email or web address] 8 [facility], [address] [place] [address], [id number], 7 08:01:51 rf (rheumatoi d factor), serum 2016 017 [email or web address] 8 [facility], [address] [place] [address], [id number], 7 08:01:52 C reactive protein, QN, serum or plasma 2016 017 [facility], [address] [place] [address], [id number], 7 15:26:52 ESR (erythrocy te sedimentat ion rate), blood 2016 017 [facility], [address] [place] [address], [id number], 7 16:12:40 rf (rheumatoi d factor), serum 2016 017 [facility], [address] [place] [address], [id number], 7 15:26:53 Referral None recorded. Procedures None recorded. Surgeries None recorded. Imaging XR, chest, 2 view [id number] [facility], [address] [place] [address], [id number], 7 08:19:04 XR, hand, 2 view [id number] [facility], [address] [place] [address], [id number], 7 08:19:04 Medication Orders Plaquenil 200 mg tablet 2017 018 [facility] #92463, [address], [id number], 8 14:09:30 prednisone 5 mg tablet 2017 018 [facility]47117, [address], [id number], 8 14:09:27 Plaquenil 200 mg tablet 2016 017 [id number], [address] [facility] [address], [place], [id number], 7 14:07:22 prednisone 5 mg tablet 2016 017 [facility]45426, [address] [facility] [address], [place], [id number], 7 14:07:24 Plaquenil 200 mg tablet 2016 017 INTERFACE [facility] #05743, [address] [facility] [address], [place], [id number], 7 16:07:36 prednisone 5 mg tablet 2016 017 [facility]FACE [facility] #04465, [address] [facility] [address], [place], [id number], 7 16:07:39 hydroxychl oroquine 200 mg tablet 2016 017 INTERFACE [facility] #87549, [address] [facility] [address], [place], [id number], 7 14:10:52 prednisone 5 mg tablet 2016 017 INTERFACE [facility] #58893, [address] [facility] [address], [place], [id number], 7 14:10:55 Patient TargetsNo targets recorded. Patient Instructions Encounter Date Encounter Id Patient Instructions Last Modified By Organization Details Last Modified Time 06/17/2016 [id number] rheumatoid arthritis diet: care instructions Not available 06/21/2016 09:00:01 Rheumatoid Arthritis (RA): Care Instructions Not available 06/21/2016 09:00:01 01/28/2017 [id number] eye exam* - plaquenil eye exam [email or web address] [...] INFLA MMATO RY ACTIV ITY. Not Available [facility] [address] [place], [address], 06/17/2016 15:26:52 06/18/19 17 06/17/2016 rf (rheu matoi d facto r), serum rf screen, quant. 364.8 IU/mL 0.0-13 .9 high Test excee ds linea rity. Resul t based on speci men dilut ion. Not Available [facility] [address] [place], [address], 06/17/2016 15:26:53 06/18/19 17 06/17/2016 ESR (eryt hrocy te sedim entat ion rate) , blood ESR, automated 11 mm/HR 0-29 normal Not Available [facility] [address] [place], [address], 06/17/2016 16:12:40 Result Notes None recorded. Problems Name Problem SNOMED Code Status Onset Date Resolution Date Notes Provider Name and Address Organization Details Recorded Time Fibromyal brent 208287220 Active 2014 From Automated Load;Provi mehnaz: Porras, Lilia;Stat us: Active Not Available [facility] 6 05:06:37 Problem Notes None recorded. Medical [...] Details Last Updated DateTime 7 165.1 cm 88147.7 5 g 18.5 kg/m2 18 /min 69 /min 122/69 mm[Hg] Tahmina Flores [facility] 7 13:17:11 Date Recorded Body height Body weight Body mass index (BMI) Heart rate Systolic And Diastolic Provider Name and Address Organization Details Last Updated DateTime 08/12/2016 165.1 cm 07601.15 g 19.4 kg/m2 77 /min 112/59 mm[Hg] Carly Jean [facility] 7 15:28:21 Date Recorded Body height Body mass index (BMI) Body weight Respiratory rate Heart rate Systolic And Diastolic Provider Name and Address Organization Details Last Updated DateTime 8 165.1 cm 20.1 kg/m2 63620.6 8 g 20 /min 74 /min 117/65 mm[Hg] Sara Valdes [facility] 8 13:52:39 Date Recorded Body height Body mass index (BMI) Body weight Respiratory rate Heart rate Systolic And Diastolic Provider Name and Address Organization Details Last Updated DateTime 7 165.1 cm 20 kg/m2 00472.0 8 g 18 /min 70 /min 115/64 mm[Hg] Tahmina Flores [facility] 7 13:52:46 Social History Question Answer Notes LastModified by Organizat ion Details LastModified Time Tobacco Smoking Status Current Every Day Smoker Tahmina Flores [facility] 06/17/2016 13:15:33 What Was The Date Of Your Most Recent Tobacco Screening? 11/30/2017 Information not available 05/08/2019 Has Tobacco Cessation Counseling Been Provided? Yes [email or web address] Information not available 01/28/2017 On What Date Was Tobacco Cessation Counseling Provided? 11/30/2017 [email or web address] Information not available 11/30/2017 Sex: Unknown Functional Status Question Answer Note LastModified by Organization D etails LastModified Time What is your level of alcohol consumption? None [email or web address] Information not available 08/12/2016 Mental Status None recorded. Family History Relationship Description Onset Age of this Age Resolved Age Notes LastModified by Organization Details LastModified Time Father No current problems or disability [email or web address] Not available 06/17 13:15:24 Mother No current problems or disability [email or web address] Not available 06/17 13:15:24 Medical History Condition [...] ICD10 Code Diagnosis IMO Codes Diagnosis Note [id number] LINDA SHELTON MD [facility] [address] [place] [address] 06/17/2016 13:00:30 06/17/2016 14:15:51 Rheumatoid arthritis 47889918 M06.9 chronic .Nodular with chronic synovitis at [...] with close watch on her liver functions. [id number] LINDA SHELTON MD [facility] [address] [place] [address] 08/12/2016 15:00:03 08/12/2016 16:17:24 Inflammatory polyarthropathy 268954391 M06.4 Rheumatoid , chronic and is on [...] cured with Viral load is now Zero! [id number] LINDA SHELTON MD [facility] [address] [place] [address] 01/28/2017 13:27:25 01/28/2017 14:09:39 Seropositive rheumatoid arthritis 919026402 M05.9 Rheumatoid , sero positive. seems ot be fair. chronic and is on HCQ bid and low dose Prednisone 5 mg po qd. 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 I want to keep the Plaquenil, 200 mg bid and Prednisone 5 mg po qd. other issues:H/O Hep-C though cured with Viral load is now Zero! eye exam once yearly. [id number] LINDA SHELTON MD [facility] [address] [place] [address] 11/30/2017 13:34:39 11/30/2017 14:16:23 Seropositive rheumatoid arthritis 915722246 M05.9 Rheumatoid , sero positive. currently is doing better. Though recent flares, ankes, and knees. had to go on steroids. she is [id number] mg po qd, and low dose Prednisone [...] Name 02/13/2020 1 [place] Jacque Worley [id number] Jacque Worley 02/13/2020 1 [place] [id number] Jeffry Worley [id number] Jacque Worley Notes Date Note Type [...] is a chronic smoker. LINDA SHELTON MD [facility] [place], [address], [facility] 06/17/2016 14:12:35 08/12/2016 text/html ROS as noted in the HPI seen as a follow up .she chocked on her Plaquenil and had to get hamllick manoeuver through her .she has had chocking with the peanut butter in the past.now doing well , but wants to know what she can take to avoid the chocking off and on . LINDA SHELTON MD [facility] [place], [address], [facility] 08/12/2016 16:08:04 01/28/2017 text/html ROS as noted in the HPI seen as a follow up.she is coming along well.cold weather hurts more. LINDA SHELTON MD [facility] [place], [address], [facility] 01/28/2017 14:08:01 11/30/2017 text/html ROS as noted in the HPI seen as a follow up on RA. she is on plaquenil and low dose prednisone. she does report h/o diarrhea after she used ABX for [place], [address], [facility] 11/30/2017 14:09:44 OBGyn Episode No OBEpisode recorded.
[2025-01-25 15:12] LABS: Collection Time,Urine 24 hours; Total Volume,Urine 900 mL (250-2400)
[2025-01-25 15:14] LABS: Creatinine 24 Hour,Urine 621 mg/24hr (630-2500)
[2025-01-26 11:19] LABS: Calcium, Urine 4.9 mg/dL (Not Estab.)
== END 2025-01-25 23:59 | disposition home or self-care (01) ==
LOC: LAB 09:33
PROVIDERS: PCP Family Medicine; Visit Provider Student in an Organized Health Care Education/Training Program
DX: R79.89 Other specified abnormal findings of blood chemistry (principal)
CPT/HCPCS: 82340; 82570

== ENCOUNTER 2025-01-29 11:44 | Outpatient (CLI) | payer MEDICARE, SELFPAY ==
--- OUTSIDE RECORDS SUMMARY | 2020-01-26 05:00 | XMS_ITS | Encounter Summary ---
Author Organization [place] [address] Care Team Providers Care Title I Director Name Role Phone Unavailable Primary Care Provider Unavailabl e Encounter Details Date Type Department Care Team (Late st Contact Info) Description 01/26/2020 5:00 AM EST Hospital Encounter [facility] Referral Lab [address] [phone] Haroon Cain MD [address] [place] [address] Social History Tobacco Use Types Packs/Day Years Used Date Smoking Tobacco: Never Assessed Comments Unknown Sex and Gender Information Value Date Recorded Sex Assigned at Not on file Legal Sex Female 1:24 PM EDT Gender Identity Not on file Sexual Orientation Not on file COVID-19 Exposure Response Date Recorded In the last month, have you been in contact with someone who was confirmed or suspected to have Coronavirus / COVID-19? Unable to assess 01/25/2020 7:32 AM EST documented as of this encounter Plan of Treatment Scheduled Orders Name Type Priority Associated Diagnoses Orde r Schedule BASIC METABOLIC PANEL Lab Routine ONC E for 1 Occurrences starting 01/26/2020 until 03/01/2020 documented as of this encounter Visit Diagnoses Not on filedocumented in this encounter
--- OUTSIDE RECORDS SUMMARY | 2025-01-01 08:40 | XMS_ITS | Encounter Summary ---
Author Organization Healthcare Address [address] [place] [address] Care Team Providers Care Wood Casket Maker Name Role Phone Nico Moncada MD Unavailable [phone] Elba Alves DO Unavailable [phone] Ladonna Iqbal APRN Primary Care Provider [phone] Reason for Visit * Reason Comments Follow-up HX of SPV for OLIVIA 3 Encounter Details Date Type Department Care Team (Late st Contact Info) Description 01/01/2025 9:40 AM EDT Office Visit [facility] Gynecology [address] [place] [address] Mark Zurita MD [address] [facility] [address] [place] [address] Severe vulvar dysplasia, histologically confirmed (Primary Dx) Social History Tobacco Use Types Packs/Day Years Used Date Smoking Tobacco: Former Cigarettes 1 16 2 2019 Passive Smoke Exposure: Past Smokeless Tobacco: Never Alcohol Use Standard Drinks/Week Comments Never 0 (1 standard drink = 0.6 oz pur e alcohol) PHQ-2 Answer Date Recorded Patient Health Questionnaire-2 Score 1 01/01/2025 AUDIT-C Answer Date Recorded Frequency of Alcohol [...] Sign Reading Time Taken Comments Blood Pressure 126/56 01/01/2025 10:31 AM EDT Pulse 54 01/01/2025 10:31 AM EDT Temperature 36.6 C (97.8 F) 01/01/2025 10:31 AM EDT Respiratory Rate 16 01/01/2025 10:31 AM EDT Oxygen Saturation 98% 01/01/2025 10:31 AM EDT Inhaled Oxygen Concentration - - Weight 53 kg (116 lb 13.5 oz) 01/01/2025 10:31 A M EDT Height 162.6 cm (5' 4.02 ) 01/01/2025 10:31 AM E DT Body Mass Index 20.05 01/01/2025 10:31 AM EDT documented in this encounter Functional Status * Over the past 2 weeks, how often have you been bothered by any of the following problems? Question Answer Date of Assessment Author Little interest or pleasure in doing things Not at all 01/01/2025 10:39 AM EDT Alberta Worley Feeling down, depressed, or hopeless Several days 01/01/2025 10:39 AM EDT Alberta Worley Patient Health Questionnaire -2 Score 1 01/01/2025 10:39 AM EDT Alberta Worley documented as of this encounter Miscellaneous Notes * Progress Notes - Mark Zurita MD - 01/01/2025 9:40 AM EDT Images from the original note were not included. Patient ID: Jacque Worley is a 74 y.o. female. Referring Physician: No referring provider defined for this encounter. Primary Care Provider: Ladonna Iqbal APRN History of Present Illness: 74 yo here for FU exam S/P: -08-09-2024 SPV perineal body excision for OLIVIA [address] Dietrich. Resendiz says she has been doing well since the surgery with no new lesions seen or felt and no significant symptoms Bowel and bladder working well. 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 Delgado 2019 & then wire removal 2021 Last Pap: -05-31-2024 Negative & Negative HR HPV DNA Review of Systems Constitutional: Negative. HENT: Negative. Eyes: Negative. Respiratory: Negative. Cardiovascular: Negative. Gastrointestinal: Negative. Endocrine: Negative. Genitourinary: Negative. Musculoskeletal: Negative. Skin: Negative. Neurological: Negative. Hematological: Negative. Psychiatric/Behavioral: Negative. Oncology History No problem history exists. Past Medical History[1] Surgical History[2] [...] Exam: Vital Signs for this encounter: BSA: 1.55 meters squared Visit Vitals BP 126/56 (BP Location: Left arm, Patient Position: Sitting, BP Cuff Size: Large adult) Pulse 54 Temp 36.6 ??C (97.8 ??F) (Temporal) Resp 16 Ht 1.626 m (5' 4.02 ) Wt 53 kg (116 lb 13.5 oz) SpO2 98% BMI 20.05 kg/m?? OB Status Postmenopausal Smoking Status Former BSA 1.55 m?? Physical Exam Vitals and nursing note reviewed. Exam conducted with a stained glass artist present. Constitutional: Appearance: Normal appearance. She is well-developed. HENT: Head: Normocephalic and atraumatic. Eyes: General: No scleral icterus. Conjunctiva/sclera: Conjunctivae normal. Neck: Thyroid: No thyromegaly. Vascular: No JVD. Genitourinary: General: Normal vulva. Comments: SPV site well healed no worrisome lesions seen or felt Ascetic acid applied and no significant aceto-white areas noted Musculoskeletal: General: Normal range of motion. Cervical [...] EXTENDS TO THE ANTERIOR AND POSTERIOR TIPS. I spent 30 minutes caring for patient including reviewing nurse intake, history, previous records, labs, and imaging. Time also included physical exam along with face to face counseling and discussion of assessment & plan with patient. Assessment/Plan Problem 1: Vulvar HSIL OLIVIA 3 Assessment and plan 1: -08-09-2024 SPV perineal body excision for OLIVIA [address] Duran. - No Worrisome lesions seen today - Follow-up vulvar exam in 6 months and continue till July 2029 then yearly thereafter if normal BUTcall if any lesions or SXS before MD BUDDY Frederick [facility] [address] [facility] [address] Dept: [phone] Dept Loc: [phone] [1] Past Medical History: Diagnosis Date COPD (chronic obstructive pulmonary disease) (CMS/HCC) COVID-19 11/13/2021 Heart disease Hepatitis C Personal history of other diseases of the digestive system History of gallstones Personal history of other diseases of the musculoskeletal system and connective tissue History of osteoporosis Rheumatoid arthritis ([facility]) Skin cancer UTI (urinary tract infection) UTI (urinary tract infection) [2] Past Surgical History: Procedure Laterality Date CARDIAC CATHETERIZATION N/A CATARACT EXTRACTION N/A CORONARY ARTERY BYPASS GRAFT N/A 12/25/2019 CABG x 1 - AGUILAR to LAD (Dr Jose Delgado) LEG SURGERY N/A STERNAL WIRES REMOVAL 12/09/2021 Dr Jose Delgado - , [facility] TUBAL LIGATION N/A VULVA SURGERY Right [...] Multiple Vitamin (MULTIVITAMINS PO) Take by mouth. fampjwmm-lmhapwpgs-xiyzvxiaxpixo (Maxitrol) 3.5-46308-6.1 ophthalmic suspension nystatin (Mycostatin) 847051 UNIT/ML suspension ondansetron (Zofran) 4 MG tablet Take 1 tablet by mouth every 8 hours as needed for nausea or vomiting. oxybutynin XL (Ditropan-XL) 10 MG 24 hr tablet Take 1 tablet by mouth daily. pramipexole (Mirapex) 0.125 MG tablet TAKE 1 TABLET BY MOUTH NIGHTLY FOR RESTLESS LEGS predniSONE (Deltasone) 5 MG tablet Take 1-3 tabs as needed for breakthrough pain 30 tablet 2 ranolazine (Ranexa) 1000 MG 12 hr tablet Take 1 tablet by mouth 2 times a day. Tofacitinib Citrate ER (Xeljanz XR) 11 MG tablet sustained-release 24 hour Take 1 tablet by mouth daily. 30 tablet 4 No current facility-administered medications on file prior to visit. [4] Allergies Allergen Reactions Cephalexin Hives Cephalosporins Hives [...] date: 2003 Quit date: 2020 Years since quittin.7 Passive exposure: Past Smokeless tobacco: Never Vaping [...] Care Team (Late st Contact Info) Description 04/01/2025 9:00 AM EST Appointment [facility] Radiology [address] [place] [address] 04/01/2025 10:00 AM EST Office Visit [facility] CC Head, Neck & Respiratory [address] [facility], 2nd [place] [address] Candido Fitzgerald MD [address] [place] [address] 04/15/2025 3:20 PM EST Office Visit [place] [facility] [address] [place] [address] Lisa Leon, JUANJOSE [address] [place] [address] 07/02/2025 2:00 PM EDT Office Visit [facility] Gynecology [address] [facility] [address] [place] [address] Mark Zurita MD [address] [facility] [facility] [address] [place] [address] documented as of this encounter Visit Diagnoses Diagnosis Severe vulvar dysplasia, histologically confirmed- Primary Carcinoma in situ, vulva documented in this encounter Additional Health Concerns Assessment Noted Time A fall risk assessment has been complete d for the patient 01/01/2025 10:39 AM EDT A Body Mass Index follow-up plan has been documented for the patient 10/05/2024 8:54 AM EDT documented as of this encounter Care Teams Wood Casket Maker Relationship Specialty Start Date End Date Ladonna Iqbal APRN [address] [place] [address] PCP - General 01/01/25 Nico Moncada MD 1210 [facility] 36 [place] [address] Referring Physician Cardiology 12/21/21 Elba Alves DO 1210 [facility] [address] [place] [id number] Resident 06/13/24 documented as of this encounter
--- OUTSIDE RECORDS SUMMARY | 2025-01-29 11:46 | XMS_ITS | CCD ---
Author Name Christin Thapa NP Address [address] [place] [address] Phone Organization [facility] Phone Care Team Providers Care Draft Roller Picker Name Role Phone Christin Thapa NP Primary Care Provider Unavaila ble Unavailable Chronic Care Management Unavaila ble Summary Purpose DataExchange Insurance Providers Payer name Policy type / Coverage type Covered alliance party ID Effective Begin Date Effective End Date [facility] [id number] Unknown Unknown Family history Father Diagnosis Age [...] School Graduate 05/20 Employment Unknown Retired from [employer] 06/13/2024 Tobacco history Unknown Former User 06/13/[address]: 521221394 Never drinks alco hol 06/13/2024 Illegal/Recreational drug [...] Fill Instructions Lipitor 20 mg tablet RxNorm: 564811 Take 1 Tablet(s) Oral every day 07/31/19 25 026 Active Breo Ellipta 100 mcg-25 mcg/dose powder for inhalation RxNorm: 0097398 Inhale 1 Puff(s) Inhalation every day 07/31/19 25 025 Inactive Breo Ellipta 100 mcg-25 mcg/dose powder for inhalation RxNorm: 6578854 Inhale 1 Puff(s) Inhalation every day 06/14/19 25 025 Inactive Tofacitinib Citrate ER (Xeljanz XR) 11 MG tablet sustained-release 24 hour RxNorm: 4431629 Take 1 Tablet(s) Oral every day . 04/25/19 25 No Stop Date Active hydroxychloroquine (Plaquenil) 200 MG tablet RxNorm: 4621651 Take 1 Tablet(s) (200 mg) Oral every day . 01/09/20 24 No Stop Date Active oxybutynin XL (Ditropan-XL) 10 MG 24 hr tablet RxNorm: 140869 Take 1 Tablet(s) (10 mg) Oral every day . 10/18/19 24 No Stop Date Active estradiol (Estrace) 0.1 MG/GM vaginal cream RxNorm: 523120 USING FINGER TECHNIQUE DAILY FOR 2 WEEKS AND THEN TWICE WEEKLY VAGINALLY 10/17/19 24 No Stop Date Active eilzybsk-nhlqolbin-qc xamethasone (Maxitrol) 3.5-65890-0.1 ophthalmic suspension RxNorm: 968706 opht 09/05/19 24 025 Inactive predniSONE (Deltasone) 5 MG tablet RxNorm: 847963 Take 3 tablets for 5 days, then take 2 tablets for 5 days, then take 1 tablet for 5 days. 09/01/19 24 No Stop Date Active metoprolol tartrate (Lopressor) 25 MG tablet RxNorm: 660636 Take 0.5 tablets (12.5 mg) by mouth 2 (two) times a day. 03/05/20 21 No Stop Date Active albuterol 108 (90 Base) MCG/ACT inhaler RxNorm: 9339980 INHALE 2 PUFFS BY MOUTH EVERY 4 TO 6 HOURS NEEDED FOR SHORTNESS OF BREATH OR WHEEZING 10/03/19 21 No Stop Date Active atorvastatin (Lipitor) 20 MG tablet RxNorm: 861373 1 (one) time each day. 09/09/19 21 025 Inactive pramipexole (Mirapex) 0.125 MG tablet RxNorm: 166052 TAKE 1 TABLET BY MOUTH NIGHTLY FOR RESTLESS LEGS 07/08/19 21 No Stop Date Active alendronate (Fosamax) 70 MG tablet RxNorm: 159875 TAKE 1 TABLET BY MOUTH EVERY WEEK ON SAME DAY EACH WEEK 06/24/19 21 No Stop Date Active Medication Administered No Medication Administered data Procedures Procedure Codes Date Most recent systolic blood pressure 130 to 139 m m CPT-4: 3075F 06/13/2024 Most recent diastolic blood pressure < 80 mm hg CPT-4: 3078F 06/13/2024 MED LIST DOCD IN [facility] CPT-4: 1159F 06/13/2024 RVW MEDS BY RX/DR IN [facility] CPT-4: 1160F 2024 Functional Status Assessed CPT-4: 1170F 06/13 Screening for clinical depre ssion is negative, follow-up plan not required CPT-4: G8510 06/13/2024 Vital Signs Date Vital 06/13/2024 Blood Pressure 1: 138/70 Code: 8480-6 BMI: 20.1 Code: 57553-7 Heart Rate 1: 65 bpm Height: 5'3 Code: 8302-2 Respiratory Rate: 16 bpm SpO2: 98% Temperature: 36.4 (C) / 97.6 (F) Weight: 113 lbs 4 oz Code: 02695-3 Reason For Visit Reason For Visit Effective Dates Notes established patient visit 07/30/2024 new patient welcome visit 06/13/2024 Encounters Encounter Performer Location Location Address Codes Date () (EST PT) LOW COMPLEXITY TELEHEALTH VISIT Diagnosis: COPD (chronic obstructive pulmonary disease)[ICD10: J44.9] Diagnosis: Rheumatoid arthritis[ICD10: M06.9] Diagnosis: Hypertension[ICD10 : I10] [facility] [address] [place] [address] CPT-4: 08478 07/30/2024 ([id number]) 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, 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 Diagnosis: COPD (chronic obstructive pulmonary disease)[ICD10: J44.9] Diagnosis: Rheumatoid arthritis[ICD10: M06.9] Diagnosis: Hypertension[ICD10 : I10] Diagnosis: Encounter for general adult medical examination without abnormal findings[ICD10: Z00.00] [facility] [address] [place] [address] CPT-4: 29134 06/13/2024 Plan of Care Planned Activity Notes [...] Appointment: Christin Thapa WPtel: [address] [facility] [address] [id number] ETV 07/30/2024 Patient Education: Patient Medication Summary [...] has quit for many years now. Her Chocolate Temperer gave her BREO to use but she [...] of care. 06/13/2024 Appointment: Christin Thapa WPtel: [facility] [address] 06/13/2024 Patient Education: Patient Medication [...] has quit for many years now. Her Chocolate Temperer gave her BREO to use but she [...]
--- OUTSIDE RECORDS SUMMARY | 2025-01-29 11:47 | XMS_ITS | CCD ---
Author Name Christin Thapa NP Address [address] [facility] [address] [place] [address] Phone Organization [facility] Phone Care Team Providers Care Blade Boner Name Role Phone Christin Thapa NP Primary Care Provider Unavaila ble Unavailable Chronic Care Management Unavaila ble Summary Purpose DataExchange Insurance Providers Payer name Policy type / Coverage type Covered green party ID Effective Begin Date Effective End Date [facility] [id number] Unknown Unknown Family history Father Diagnosis Age [...] School Graduate 05/20 Employment Unknown Retired from [employer] 06/13/2024 Tobacco history Unknown Former User 06/13/[address]: 374946553 Never drinks alco hol 06/13/2024 Illegal/Recreational drug [...] Fill Instructions Lipitor 20 mg tablet RxNorm: 016657 Take 1 Tablet(s) Oral every day 07/31/19 25 026 Active Breo Ellipta 100 mcg-25 mcg/dose powder for inhalation RxNorm: 2862916 Inhale 1 Puff(s) Inhalation every day 07/31/19 25 025 Inactive Breo Ellipta 100 mcg-25 mcg/dose powder for inhalation RxNorm: 5467360 Inhale 1 Puff(s) Inhalation every day 06/14/19 25 025 Inactive Tofacitinib Citrate ER (Xeljanz XR) 11 MG tablet sustained-release 24 hour RxNorm: 8976914 Take 1 Tablet(s) Oral every day . 04/25/19 25 No Stop Date Active hydroxychloroquine (Plaquenil) 200 MG tablet RxNorm: 4390469 Take 1 Tablet(s) (200 mg) Oral every day . 01/09/20 24 No Stop Date Active oxybutynin XL (Ditropan-XL) 10 MG 24 hr tablet RxNorm: 986274 Take 1 Tablet(s) (10 mg) Oral every day . 10/18/19 24 No Stop Date Active estradiol (Estrace) 0.1 MG/GM vaginal cream RxNorm: 133051 USING FINGER TECHNIQUE DAILY FOR 2 WEEKS AND THEN TWICE WEEKLY VAGINALLY 10/17/19 24 No Stop Date Active vbkddruf-joklvnmen-np xamethasone (Maxitrol) 3.5-46906-0.1 ophthalmic suspension RxNorm: 627882 opht 09/05/19 24 025 Inactive predniSONE (Deltasone) 5 MG tablet RxNorm: 633377 Take 3 tablets for 5 days, then take 2 tablets for 5 days, then take 1 tablet for 5 days. 09/01/19 24 No Stop Date Active metoprolol tartrate (Lopressor) 25 MG tablet RxNorm: 266810 Take 0.5 tablets (12.5 mg) by mouth 2 (two) times a day. 03/05/20 21 No Stop Date Active albuterol 108 (90 Base) MCG/ACT inhaler RxNorm: 2903253 INHALE 2 PUFFS BY MOUTH EVERY 4 TO 6 HOURS NEEDED FOR SHORTNESS OF BREATH OR WHEEZING 10/03/19 21 No Stop Date Active atorvastatin (Lipitor) 20 MG tablet RxNorm: 897923 1 (one) time each day. 09/09/19 21 025 Inactive pramipexole (Mirapex) 0.125 MG tablet RxNorm: 705883 TAKE 1 TABLET BY MOUTH NIGHTLY FOR RESTLESS LEGS 07/08/19 21 No Stop Date Active alendronate (Fosamax) 70 MG tablet RxNorm: 198766 TAKE 1 TABLET BY MOUTH EVERY WEEK [...] 1: 138/70 Code: 8480-6 BMI: 20.1 Code: 92331-9 Heart Rate 1: 65 bpm Height: 5'3 Code: 8302-2 Respiratory Rate: 16 bpm SpO2: 98% Temperature: 36.4 (C) / 97.6 (F) Weight: 113 lbs 4 oz Code: 52976-4 Reason For Visit Reason For Visit Effective Dates Notes established patient visit 07/30/2024 new patient welcome visit 06/13/2024 Encounters Encounter Performer Location Location Address Codes Date () (EST PT) LOW COMPLEXITY TELEHEALTH VISIT Diagnosis: COPD (chronic obstructive pulmonary disease)[ICD10: J44.9] Diagnosis: Rheumatoid arthritis[ICD10: M06.9] Diagnosis: Hypertension[ICD10 : I10] [facility] [address] [facility] [place] [address] CPT-4: 48440 07/30/2024 ([id number]) 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 [facility] and consents to treatment via telephone. Since [...] [address] [facility] [address] [id number] ETV 07/30/2024 Patient Education: Patient Medication Summary [...] has quit for many years now. Her Equal Opportunity Assistant gave her BREO to use but she [...] Christin Thapa WPtel: [facility] [address] 06/13/2024 Patient Education: Patient Medication Summary Completed 06/13/2024 Instructions Comment Date . This is a phone call only. Patient is in the [facility] and consents to treatment via telephone. Since [...] has quit for many years now. Her Equal Opportunity Assistant gave her BREO to use but she [...]
--- OUTSIDE RECORDS SUMMARY | 2025-01-29 11:47 | XMS_ITS | Clinical Summary ---
Author Organization [facility] [place] [facility] Address [address] [place] [address] Phone Care Team Providers Care Sewer Pipe Sorter Name Role Phone Unavailable Primary Care Provider [...]
--- OUTSIDE RECORDS SUMMARY | 2025-01-29 11:47 | XMS_ITS | Data Portability ---
Author Organization [facility] LAWANDA Menchaca [place] Address [address] [place] [address] Assessment No assessment recorded. Plan of Treatment Reminders Order Date Submit Date Provider Last Modified By Organization Details Last Modified Time Details Appointments None recorded. Lab ESR (erythrocy te sedimentat ion rate), blood 2016 [email or web address] [facility], [address] [place] [address], [id number], 7 08:01:51 CBC w/ auto diff 2016 017 [email or web address] [facility], [address] [place] [address], [id number], 7 08:01:51 C reactive protein, QN, serum or plasma 2016 017 [email or web address] [facility], [address] [place] [address], [id number], 7 08:01:51 ccp (cyclic citrullina demetris peptide) iga+igg, serum 2016 017 [email or web address] [facility], [address] [place] [address], [id number], 7 08:01:51 rf (rheumatoi d factor), serum 2016 017 [email or web address] [facility], [address] [place] [address], [id number], 7 08:01:52 C reactive protein, QN, serum or plasma 2016 017 [facility], [address] [place] [address], [id number], 7 15:26:52 ESR (erythrocy te sedimentat ion rate), blood 2016 017 [facility], [address] [place] [address], [id number], 7 16:12:40 rf (rheumatoi d factor), serum 2016 017 [facility], [address] [place] [address], [address], 7 15:26:53 Referral None recorded. Procedures None recorded. Surgeries None recorded. Imaging XR, chest, 2 view [email or web address] [facility], [address] [place] [address], [id number], 7 08:19:04 XR, hand, 2 view [email or web address] [facility], [address] [place] [address], [address], 7 08:19:04 Medication Orders Plaquenil 200 mg tablet 2017 018 [facility] #68479, [address], [id number], 8 14:09:30 prednisone 5 mg tablet 2017 018 [facility]19473, [address], [id number], 8 14:09:27 Plaquenil 200 mg tablet 2016 017 [facility]48190, [address] [facility] [address], [place], [id number], 7 14:07:22 prednisone 5 mg tablet 2016 017 [facility] #90327, [address] [facility] [address], [place], [id number], 7 14:07:24 Plaquenil 200 mg tablet 2016 017 [facility] #44273, [address] [facility] [address], [place], [id number], 7 16:07:36 prednisone 5 mg tablet 2016 017 [facility] #21913, [address] [facility] [address], [place], [id number], 7 16:07:39 hydroxychl oroquine 200 mg tablet 2016 017 [facility] #50936, [address] [facility] [address], [place], [id number], 7 14:10:52 prednisone 5 mg tablet 2016 017 [facility] #50499, [address] [facility] [address], [place], [id number], 7 14:10:55 Patient TargetsNo targets recorded. Patient Instructions Encounter Date Encounter Id Patient Instructions Last Modified By Organization Details Last Modified Time 06/17/2016 [id number] rheumatoid arthritis diet: care instructions Not available 06/21/2016 09:00:01 Rheumatoid Arthritis (RA): Care Instructions Not available 06/21/2016 09:00:01 01/28/2017 [id number] eye exam* - plaquenil eye exam [email or web address] [...] RY ACTIV ITY. Not Available [facility] [address] [place], [address], 06/17/2016 15:26:52 06/18/19 17 06/17/2016 rf (rheu matoi d facto r), serum rf screen, quant. 364.8 IU/mL 0.0-13 .9 high Test excee ds linea rity. Resul t based on speci men dilut ion. Not Available [facility] [address] [place], [address], 06/17/2016 15:26:53 06/18/19 17 06/17/2016 ESR (eryt hrocy te sedim entat ion rate) , blood ESR, automated 11 mm/HR 0-29 normal Not Available [facility] [address] [place], [address], 06/17/2016 16:12:40 Result Notes None recorded. 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 Medical [...] Details Last Updated DateTime 7 165.1 cm 91985.7 5 g 18.5 kg/m2 18 /min 69 /min 122/69 mm[Hg] Tahmina Flores [facility] 7 13:17:11 Date Recorded Body height Body weight Body mass index (BMI) Heart rate Systolic And Diastolic Provider Name and Address Organization Details Last Updated DateTime 08/12/2016 165.1 cm 44047.15 g 19.4 kg/m2 77 /min 112/59 mm[Hg] Carly Jean [facility] 7 15:28:21 Date Recorded Body height Body mass index (BMI) Body weight Respiratory rate Heart rate Systolic And Diastolic Provider Name and Address Organization Details Last Updated DateTime 8 165.1 cm 20.1 kg/m2 22819.6 8 g 20 /min 74 /min 117/65 mm[Hg] Sara Valdes [facility] 8 13:52:39 Date Recorded Body height Body mass index (BMI) Body weight Respiratory rate Heart rate Systolic And Diastolic Provider Name and Address Organization Details Last Updated DateTime 7 165.1 cm 20 kg/m2 52617.0 8 g 18 /min 70 /min 115/64 mm[Hg] Tahmina Flores [facility] 7 13:52:46 Social History Question Answer Notes LastModified by Organizat ion Details LastModified Time Tobacco Smoking Status Current Every Day Smoker Tahmina Flores [facility] 06/17/2016 13:15:33 What Was The Date Of Your Most Recent Tobacco Screening? 11/30/2017 Information not available 05/08/2019 Has Tobacco Cessation Counseling Been Provided? Yes [email or web address] Information not available 01/28/2017 On What Date [...] Time Father No current problems or disability Not available 06/17 13:15:24 Mother No current problems or disability [email or web address] Not available 06/17 13:15:24 Medical History Condition Response Diabetes N Bleeding Disorder N Arthritis Y Emphysema Y Acid Reflux (GERD) Y COPD N Asthma N Heart Disease N Rheumatoid Arthritis N Hypertension N Gynecological HistoryNo gynecological history recorded. Obstetrics History GPAL:G 0 P 0 0 0 0 Past Encounters Encounter ID Performer Location Encounter Start Date Encounter Closed Date Diagnosis/Indication Diagnosis SNOMED-CT Code Diagnosis ICD10 Code Diagnosis IMO Codes Diagnosis Note [id number] LINDA SHELTON MD [facility] [address] [place] [address] 06/17/2016 13:00:30 06/17/2016 14:15:51 Rheumatoid arthritis 64962369 M06.9 chronic .Nodular with chronic synovitis at [...] with close watch on her liver functions. 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 [id number] LINDA SHELTON MD [facility] [address] [place] [address] 01/28/2017 13:27:25 01/28/2017 14:09:39 Seropositive rheumatoid arthritis 644851980 M05.9 Rheumatoid , sero positive. seems ot be fair. chronic and is on HCQ bid and low dose Prednisone 5 mg po qd. 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 I want to keep the Plaquenil, 200 mg bid and Prednisone 5 mg po qd. other issues:H/O Hep-C though cured with Viral load is now Zero! eye exam once yearly. [id number] LINDA SHELTON MD [facility] [address] [place] [address] 11/30/2017 13:34:39 11/30/2017 14:16:23 Seropositive rheumatoid arthritis 116248669 M05.9 Rheumatoid , sero positive. currently is doing better. Though recent flares, ankes, and knees. had to go on steroids. she is bcQUY562 mg po qd, and low dose Prednisone [...] Name 02/13/2020 1 [place] Jacque Worley [id number] A Jacque Worley 02/13/2020 1 [place] [id number] Jeffry Worley [id number] Jacque Worley Notes Date Note Type [...] is a chronic smoker. LINDA SHELTON MD [facility] [place], [address], [facility] 06/17/2016 14:12:35 08/12/2016 text/html ROS as noted in the HPI seen as a follow up .she chocked on her Plaquenil and had to get hamllick manoeuver through her .she has had chocking with the peanut butter in the past.now doing well , but wants to know what she can take to avoid the chocking off and on . LINDA SHELTON MD [facility] [place], [address], [facility] 08/12/2016 16:08:04 01/28/2017 text/html ROS as noted in the HPI seen as a follow up.she is coming along well.cold weather hurts more. LINDA SHELTON MD [facility] [place], [address], [facility] 01/28/2017 14:08:01 11/30/2017 text/html ROS as noted in the HPI seen as a follow up on RA. she is on plaquenil and low dose prednisone. she does report h/o diarrhea after she used ABX for the URI. [place], [address], [facility] 11/30/2017 14:09:44 OBGyn Episode No OBEpisode recorded.
--- OUTSIDE RECORDS SUMMARY | 2025-01-29 11:47 | XMS_ITS | Clinical Summary ---
Author Organization [facility] Address [address] [place] [address] Care Team Providers Care Roasterman Name Role Phone Nico Moncada MD Unavailable [phone] Elba Alves DO Unavailable [phone] Ladonna Iqbal APRN Primary Care Provider [phone] Allergies Active Allergy Reactions Criticality Noted Date [...] VAGINALLY 4 Active neomycin-polymy javier-dexamethaso ne (Maxitrol) 3.5-71122-1.1 ophthalmic suspension 4 Active oxybutynin XL (Ditropan-XL) [...] DAILY NEEDED FOR RASH Active nystatin (Mycostatin) 534162 UNIT/ML suspension 5 Active hydroxychloroqu ine (Plaquenil) [...] Gynecology [address] [place] [address] Mark Zurita MD Severe vulvar dysplasia, histologically [...] EST Appointment [facility] [address] [place] [address] 04/01/2025 10:00 AM EST Office Visit [facility] [address] [place] [address] Candido Fitzgerald MD [address] [place] [address] 04/15/2025 3:20 PM EST Office Visit [place] [facility] [address] [place] [address] Lisa Leon, [employer] [address] [place] [address] 07/02/2025 2:00 PM EDT Office Visit [facility] Gynecology [address] [place] [address] Mark Zurita MD [address] [place] [address] Health Maintenance Due Date Last [...] - Risk 60-74 years 1-dose series) 2012 [id number] Vaccine (2 - Deb risk series) 06/25/2020 [...] Positive( A) Negative 04/03/2021 8:34 PM EST [facility] Comment:This specimen is gee ng sent for confirmation by RT-PCR. Blood Venous blood specimen / Unknown Venipuncture / Unknown 04/03/2021 4:35 PM EST 04/03/2021 4:35 PM EST [facility] BLOOD ORDERABLES Final [facility] t [facility] Organization Address City/State/ZIP Co de Phone Number HEALTHCARE LAB [address] [place] [address] from Last 3 Months or Most Recently Relevant to Health Maintenance Insurance [facility] MEDICARE Care Teams Roasterman Relationship Specialty Start Date End Date Ladonna Iqbal APRN [address] [place], [place] [phone] PCP - General 01/01/25 Nico Moncada MD [address] [place] [address] [id number] Referring Physician Cardiology 12/21/21 Elba Alves DO [address] [place] [facility] [address] [place], [place] [id number] Resident 06/13/24
--- OUTSIDE RECORDS SUMMARY | 2025-01-29 11:47 | XMS_ITS | Encounter Summary ---
Author Organization Healthcare Address [address] [place] [address] Care Team Providers Care K 9 Police Officer Name Role Phone Nico Moncada MD Unavailable [phone] Elba Alves DO Unavailable [phone] Ladonna Iqbal APRN Primary Care Provider [phone] Encounter Details Date Type Department Care Team [...] EST Appointment [facility] [address] [place] [address] 04/01/2025 10:00 AM EST Office Visit [facility] [address] [facility], 2nd [place] [address] Candido Fitzgerald MD [address] [place] [address] 04/15/2025 3:20 PM EST Office Visit [place] [facility] [address] [place] [address] Lisa Leon APRN [address] [place] [address] 07/02/2025 2:00 PM EDT Office Visit [facility] Gynecology [address] [facility] [address] [place] [address] Mark Zurita MD [address] [facility] [address] [facility] [address] [place] [address] documented as of this encounter Visit Diagnoses Not on filedocumented in this encounter Additional Health Concerns Assessment Noted Time A fall risk assessment has been complete d for the patient 01/01/2025 10:39 AM EDT A Body Mass Index follow-up plan has been documented for the patient 10/05/2024 8:54 AM EDT documented as of this encounter Care Teams K 9 Police Officer Relationship Specialty Start Date End Date Ladonna Iqbal APRN [address] [place] [address] PCP - General 01/01/25 Nico Moncada MD [address] [place] [address] [address] Referring Physician Cardiology 12/21/21 Elba Alves DO [address] [place] [address] [address] Resident 06/13/24 documented as of this encounter
== END 2025-01-29 23:59 | disposition home or self-care (01) ==
LOC: LAB 11:45
PROVIDERS: PCP Family Medicine; Visit Provider Student in an Organized Health Care Education/Training Program
DX: M81.8 Other osteoporosis without current pathological fracture (principal)
CPT/HCPCS: 36415; 82523